=== PATIENT | female | born 1970 | race Caucasian/White ===

== ENCOUNTER → 2017-12-08 06:52 | Outpatient (CLI) | payer OTHER, SELFPAY ==
--- NOTE | 2017-12-08 06:55 | US_ITS ---
US transvaginal COMPARISON: Transvaginal ultrasound pelvis 06/02/2017 HISTORY: Dysfunctional uterine bleeding right-sided pelvic pain TECHNIQUE: Transvaginal imaging FINDINGS: The uterus is normal size. The endometrial echo appears normal. Again noted is slightly hyperechoic lesion in the fundus of uterus abutting and/or adjacent to the endometrial echo measuring 1.5 x 1.6 x 1.3 cm and consistent with a fibroid basely stable and unchanged in size and appearance from previous exam. The right ovary appears normal. The left ovary is normal size and contains a couple small follicular cysts. There is no cul-de-sac fluid. IMPRESSION: Probable uterine fibroid within the fundus adjacent to the endometrium basically stable from previous exam, small follicular cysts left ovary
== END ==
PROVIDERS: PCP Physician Assistant; Visit Provider Nurse Practitioner Obstetrics & Gynecology
DX: N93.9 Abnormal uterine and vaginal bleeding, unspecified (principal); R10.2 Pelvic and perineal pain
CPT/HCPCS: 76830

== ENCOUNTER → 2017-12-14 08:04 | Outpatient (CLI) | payer OTHER, SELFPAY ==
[2017-12-14 10:13] LABS: Anion Gap 10.4 mEq/L (5-15); Blood Urea Nitrogen 13 mg/dL (7-18); Carbon Dioxide 33 mmol/L (21.0-32.0); Chloride 103 mmol/L (98-107); Creatinine,Serum 0.62 mg/dL (0.55-1.02); Estimated Glomerular Filt Rate 102 ml/min (>60); GFR (African American) 124 ML/MIN (>60); Glucose 98 mg/dL (74-106); Potassium 4.4 mmoL/L (3.5-5.1); Sodium 142 mmol/L (136-145)
[2017-12-15 12:58] LABS: FSH 10.5 mIU/mL (.); LH 7.8 mIU/mL (.); Vitamin B12 840 pg/mL (232-1245); Vitamin D 25 Hydroxy 12.2 ng/mL (30.0-100.0)
== END ==
PROVIDERS: Physician Assistant; Visit Provider Nurse Practitioner Obstetrics & Gynecology
DX: R53.83 Other fatigue (principal); I11.9 Hypertensive heart disease without heart failure; E78.5 Hyperlipidemia, unspecified; E66.01 Morbid (severe) obesity due to excess calories
CPT/HCPCS: 36415; 80048; 82607; 82652; 83001; 83002; 83735

== ENCOUNTER → 2017-12-25 09:05 | Outpatient (REF) | payer OTHER, SELFPAY ==
[2017-12-25 13:47] LABS: Basophils % 0.4 % (0.1-2.0); Eosinophils # 0.1 K/mm3 (0.0-0.4); Eosinophils % 2.3 % (0.1-12.0); Hematocrit 39.4 % (37.0-47.0); Lymphocytes # 1.4 K/mm3 (0.7-4.5); Lymphocytes % 28.1 K/mm3 (10-50); Mean Corpuscular HGB Conc 33.1 g/dL (31.8-35.4); Mean Corpuscular Hemoglobin 30.6 pg (27.0-31.2); Mean Corpuscular Volume 92.5 fl (81-99); Mean Platelet Volume 8.2 fl (7.4-10.4); Monocytes # 0.3 K/mm3 (0.1-1.0); Monocytes % 6.6 % (1.7-9.3); Neutrophils # 3.2 K/mm3 (1.8-7.8); Neutrophils % 62.7 % (37.0-80.0); Platelet Count 218 K/mm3 (142-424); Red Blood Count 4.26 M/mm3 (4.20-5.40); Red Cell Distribution Width 13.5 % (11.5-17.5); White Blood Count 5.1 K/mm3 (4.8-10.8)
[2017-12-25 14:22] LABS: Alanine Aminotransferase 23 U/L (12-78); Albumin Level 3.8 gm/dL (3.4-5.0); Albumin/Globulin Ratio 1.1 (1.1-1.8); Alkaline Phosphatase 75 U/L (46-116); Anion Gap 11.7 mEq/L (5-15); Aspartate Amino Transferase 23 U/L (15-37); Bilirubin,Total 0.4 mg/dL (0.2-1.0); Blood Urea Nitrogen 21 mg/dL (7-18); Carbon Dioxide 29 mmol/L (21.0-32.0); Chloride 105 mmol/L (98-107); Chol/HDL Ratio 2.9 (1-3.5); Cholesterol 169 mg/dL (140-200); Creatinine,Serum 0.68 mg/dL (0.55-1.02); Estimated Glomerular Filt Rate 92 ml/min (>60); GFR (African American) 111 ML/MIN (>60); Globulin 3.6 gm/dl (1.3-3.2); Glucose 103 mg/dL (74-106); HDL Cholesterol 58 mg/dL (29-89); LDL Cholesterol 94 mg/dL (0-130); Potassium 3.7 mmoL/L (3.5-5.1); Sodium 142 mmol/L (136-145); T4 (Thyroxine) 6.6 ug/dl (4.7-13.3); Thyroid Stimulating Hormone 21.05 uIU/ml (0.358-3.740); Total Protein,Serum 7.4 gm/dL (6.4-8.2); Triglycerides 85 mg/dL (30-200); VLDL Cholesterol 17 mg/dL (0-40)
[2017-12-26 12:00] LABS: Vitamin D 25 Hydroxy 11.2 ng/mL (30.0-100.0)
== END ==
LOC: LAB 09:05
PROVIDERS: Visit Provider Physician Assistant
DX: I11.9 Hypertensive heart disease without heart failure (principal); E78.5 Hyperlipidemia, unspecified; R53.83 Other fatigue; E66.01 Morbid (severe) obesity due to excess calories; I25.10 Atherosclerotic heart disease of native coronary artery without angina pectoris; N93.9 Abnormal uterine and vaginal bleeding, unspecified
CPT/HCPCS: 80053; 80061; 82652; 84436; 84443; 85025

== ENCOUNTER → 2017-12-25 10:38 | Outpatient (CLI) | payer OTHER, SELFPAY ==
[2017-12-26 12:00] LABS: Estradiol 8.8 pg/mL (.)
[2017-12-28 06:19] LABS: Testosterone,Free 0.4 pg/mL (0.0-4.2)
== END ==
PROVIDERS: Visit Provider Nurse Practitioner Obstetrics & Gynecology
DX: N93.9 Abnormal uterine and vaginal bleeding, unspecified (principal); R53.83 Other fatigue; E66.01 Morbid (severe) obesity due to excess calories; I25.10 Atherosclerotic heart disease of native coronary artery without angina pectoris
CPT/HCPCS: 36415; 82670; 84402

== ENCOUNTER → 2018-03-22 07:31 | Outpatient (CLI) | payer OTHER, SELFPAY ==
--- NOTE | 2018-03-22 07:41 | XR_ITS ---
XR hand RT 2V HISTORY: ITS.REASON: knot on thumb ORDERING PHYSICIAN: Nava Hernandez PATIENT AGE: 47 years COMPARISON: None FINDINGS: No fracture or dislocation. No lytic or blastic change. There is normal mineralization.. The joint spaces are well-preserved. No significant degenerative/arthritic changes. No erosive changes evident.. No abnormal soft tissue calcification. IMPRESSION: Negative, no acute finding
--- NOTE | 2018-03-22 07:41 | XR_ITS ---
XR foot LT 2V HISTORY: Foot pain with a knot on the foot laterally ITS.REASON: knot on foot ORDERING PHYSICIAN: Nava Hernandez PATIENT AGE: 47 years COMPARISON: None FINDINGS: No fracture or dislocation. No lytic or blastic change. There is normal mineralization.. There are minimal osteoarthritic changes of the first metatarsophalangeal joint. Lobular soft tissue density is noted lateral to the fifth metatarsophalangeal junction. No abnormal calcification or gas density in this area there is a small calcaneal spur at 6 mm. IMPRESSION: 1. No acute finding. 2. Mild soft tissue swelling along the lateral aspect of the fifth metatarsophalangeal junction
[2018-03-22 09:17] LABS: Erythrocyte Sedimentation Rate 45 mm/hr (0-20)
[2018-03-22 11:17] LABS: C-Reactive Protein 0.4 mg/L (0.0-0.9); Uric Acid 6.1 mg/dL (2.6-7.2)
== END ==
PROVIDERS: PCP Nurse Practitioner Family; Visit Provider Nurse Practitioner Family
DX: M85.672 Other cyst of bone, left ankle and foot (principal); M85.641 Other cyst of bone, right hand
CPT/HCPCS: 36415; 73120; 73620; 84550; 85651; 86140

== ENCOUNTER → 2018-08-23 08:12 | Outpatient (CLI) | payer OTHER, SELFPAY ==
--- NOTE | 2018-08-23 08:16 | MR_ITS ---
MR foot LT wo/w con CLINICAL INDICATION: Palpable abnormality along the dorsal aspect of the left fifth metatarsal region. The pain ITS.REASON: ganglion cyst ORDERING PHYSICIAN: Alexa Domingo DPM PATIENT AGE: 47 years Comparison: 03/22/2018 TECHNIQUE: Multiplanar multiecho sequences performed without and with contrast FINDINGS: There is an 11 x 6 mm lobular area of isointense T1 and increased T2 signal within the subcutaneous tissues anteriorly at the base of the fourth and fifth metatarsals without significant enhancement consistent with a ganglion cyst. No other significant anomalies are evident. No fracture or dislocation. No bone lesions. No other obvious soft tissue masses. IMPRESSION: 11 x 6 mm cystic lesion along the dorsum of the foot in the subcutaneous tissues between the base of the fourth and fifth metatarsals consistent with a ganglion cyst
--- NOTE | 2018-08-23 09:31 | HMH.ITSHM ---
Current Home Medications as stated by this patient Lesia Doran or employee's representative. [ASPIRIN VITAMIN D VITAMIN D2 LEVOTHYROXINE FUROSEMIDE FLUOXETINE
== END ==
PROVIDERS: PCP Physician Assistant; Visit Provider Podiatrist
DX: M67.472 Ganglion, left ankle and foot (principal); M79.672 Pain in left foot
CPT/HCPCS: 73720; A9576

== ENCOUNTER → 2018-09-04 07:45 | Outpatient (CLI) | payer OTHER, SELFPAY ==
--- NOTE | 2018-09-04 08:30 | US_ITS ---
US gallbladder HISTORY: Bloating after eating ITS.REASON: Abd pain ORDERING PHYSICIAN: Roberto Mesa PATIENT AGE: 47 years Comparison: FINDINGS: PANCREAS: Unremarkable. No obvious mass or abnormal fluid collection. No ductal dilatation LIVER: No focal liver lesions demonstrated. Homogeneous echogenicity. No intrahepatic biliary ductal dilatation evident RIGHT KIDNEY: Unremarkable. Normal size and echogenicity. No hydronephrosis GALLBLADDER: No gallstones, gallbladder wall thickening, pericholecystic fluid, or biliary dilatation. Gallbladder mildly distended at 7 x 4 cm with a minimal amount sludge IMPRESSION: Mild gallbladder distention with mild gallbladder sludge No stones, wall thickening, ductal dilatation or pericholecystic fluid
== END ==
PROVIDERS: PCP Emergency Medicine; Visit Provider Nurse Practitioner Family
DX: R10.9 Unspecified abdominal pain (principal); R11.2 Nausea with vomiting, unspecified; R51 Headache
CPT/HCPCS: 76705

== ENCOUNTER → 2018-09-18 08:16 | Outpatient (CLI) | payer OTHER, SELFPAY ==
--- NOTE | 2018-09-18 08:18 | NM_ITS ---
NM hepatobiliary w pharm HISTORY: Bloating after eating, abnormal gallbladder ultrasound ITS.REASON: gallbladder sludge ORDERING PHYSICIAN: Roberto Mesa PATIENT AGE: 47 years COMPARISON: 09/04/2018 DOSE: 8.77 MCI TC Choletec 2.3 MCG cck INJ into RT wrist FINDINGS: Homogeneous activity is present within the hepatic parenchyma. Activity is present in the gallbladder by 10 minutes. Activity is present in the small bowel by 50 minutes. The gallbladder ejection fraction is calculated to be 90 % The patient did report mild pain during CCK infusion. IMPRESSION: Unremarkable hepatobiliary scan and gallbladder ejection fraction. No evidence of common or cystic duct obstruction with normal gallbladder ejection fraction
--- NOTE | 2018-09-18 12:47 | HMH.ITSHM ---
Current Home Medications as stated by this patient Lesia Doran or medical field representative. []RANITIDINE PROGESTERONE POLYETHYLENE ONDANSETRON LEVOTHYROXINE HYDROXYZINE FUROSEMIDE DONEPEZIL BUPRENORPHINE ASA ERGOCALCIFEROL VITAMIN D3
== END ==
PROVIDERS: PCP Physician Assistant; Visit Provider Nurse Practitioner Family
DX: K82.8 Other specified diseases of gallbladder (principal); R10.9 Unspecified abdominal pain; R11.2 Nausea with vomiting, unspecified
CPT/HCPCS: 78227; A9537; J2805

== ENCOUNTER → 2018-11-01 07:23 | Outpatient (CLI) | payer OTHER, SELFPAY ==
--- NOTE | 2018-11-01 07:26 | CA_ITS ---
PROCEDURE: 2-D M-mode and color Doppler study INDICATIONS FOR THE TEST: Chest pain+ COPD Heart Murmur Tobacco Smoking Palpitations Fatigue+ Syncope Edema+ Hypertension+Diabetes Mellitus Rheumatic Fever SOB+TABARES+Obesity+Hyperlipidemia+ Family History HD Additional History CAD PATIENT INFORMATION HEIGHT: 65 WEIGHT:256 GENDER: Female B/P:129/72 2-D/M-MODE INTERPRETATION: 2-D MEASUREMENTS OBSERVED VALUES IN CMS Right Ventricular Dimension (RVDd) Interventricular Septum (Thickness)(IVsd) 1.4 Left Ventricular Internal Dimensions(LVIDd) 5.0 Left Ventricular Posterior Wall (Thickness)(LVPWd) 1.2 Aortic Root 3.7 Aortic Cusp Separation Left Atrial Dimensions (LAD) 4.1 2D 1. Technically difficult study because of the patient's factor and poor acoustic windows 2. Left atrium is mildly enlarged, left ventricle is normal size, mild concentric left ventricular hypertrophy, visually estimated ejection fraction of 55% with no regional wall motion abnormality, endocardial surfaces are poorly visualized. 3. The right atrium and right ventricle are normal size and contractility. 4. The aortic valve is thickened and calcified leaflet continue to display good mobility. 5. The mitral and tricuspid valve leaflets are grossly normal. 6. The pulmonic valve is poorly visualized. 7. No significant pericardial effusion noted. DOPPLER INTERROGATION: Doppler interrogation of the aortic, mitral and tricuspid valvular presence of mild mitral and tricuspid regurgitation, tricuspid regurgitation jet velocity is inadequate for calculation of the right ventricular systolic pressure, grade 1 diastolic dysfunction seen with tissue Doppler evidence of raised left atrial pressure. CONCLUSION: 1. Technically difficult study because of the patient's factor and poor acoustic windows 2. Left atrium is mildly enlarged, left ventricle is normal size, concentric left ventricular hypertrophy, visually estimated ejection fraction 55% with no regional wall motion abnormality, grade 1 diastolic dysfunction seen with tissue Doppler evidence of raised left atrial pressure. 3. Mild mitral and tricuspid regurgitation. 4. No significant pericardial effusion noted.
[2018-11-01 10:08] LABS: Alanine Aminotransferase 19 U/L (12-78); Albumin Level 3.4 gm/dL (3.4-5.0); Alkaline Phosphatase 94 U/L (46-116); Anion Gap 13.6 mEq/L (5-15); Aspartate Amino Transferase 18 U/L (15-37); Bilirubin,Direct 0.1 mg/dL (0.0-0.2); Bilirubin,Indirect 0.1 mg/dL (0.0-0.9); Bilirubin,Total 0.2 mg/dL (0.2-1.0); Blood Urea Nitrogen 13 mg/dL (7-18); Calcium 8.7 mg/dL (8.5-10.1); Carbon Dioxide 29 mmol/L (21.0-32.0); Chloride 101 mmol/L (98-107); Chol/HDL Ratio 3.2 (1-3.5); Cholesterol 177 mg/dL (140-200); Creatinine,Serum 0.56 mg/dL (0.55-1.02); Estimated Glomerular Filt Rate 115 ml/min (>60); Free T4 (Free Thyroxine) 0.97 ng/dl (0.76-1.46); GFR (African American) 139 ML/MIN (>60); Glucose 97 mg/dL (74-106); HDL Cholesterol 55 mg/dL (29-89); LDL Cholesterol 112 mg/dL (0-130); Potassium 3.6 mmoL/L (3.5-5.1); Sodium 140 mmol/L (136-145); Thyroid Stimulating Hormone 13.68 uIU/ml (0.358-3.740); Total Protein,Serum 7.4 gm/dL (6.4-8.2); Triglycerides 51 mg/dL (30-200); VLDL Cholesterol 10 mg/dL (0-40)
[2018-11-01 12:19] LABS: Basophils % 0.4 % (0.1-2.0); Eosinophils # 0.1 K/mm3 (0.0-0.4); Hematocrit 38.4 % (37.0-47.0); Hemoglobin 12.7 g/dL (12.2-16.2); Lymphocytes # 1.6 K/mm3 (0.7-4.5); Lymphocytes % 34.6 % (10-50); Mean Corpuscular Volume 90.9 fl (81-99); Mean Platelet Volume 7.6 fl (7.4-10.4); Monocytes # 0.3 K/mm3 (0.1-1.0); Monocytes % 5.7 % (1.7-9.3); Neutrophils # 2.5 K/mm3 (1.8-7.8); Neutrophils % 56.3 % (37.0-80.0); Platelet Count 230 K/mm3 (142-424); Red Blood Count 4.22 M/mm3 (4.20-5.40); Red Cell Distribution Width 13.6 % (11.5-17.5); White Blood Count 4.5 K/mm3 (4.8-10.8)
== END ==
PROVIDERS: Nurse Practitioner Family; PCP Physician Assistant; Visit Provider Internal Medicine
DX: I20.9 Angina pectoris, unspecified (principal); R06.02 Shortness of breath; E78.49 Other hyperlipidemia; I25.10 Atherosclerotic heart disease of native coronary artery without angina pectoris; I51.89 Other ill-defined heart diseases; R53.83 Other fatigue; R60.9 Edema, unspecified; E66.01 Morbid (severe) obesity due to excess calories
CPT/HCPCS: 36415; 80048; 80061; 80076; 84439; 84443; 85025; 93306

== ENCOUNTER → 2019-01-08 14:55 | Outpatient (CLI) | payer OTHER, SELFPAY ==
[2019-01-08 15:05] LABS: Basophils % 0.4 % (0.1-2.0); Eosinophils # 0.1 K/mm3 (0.0-0.4); Eosinophils % 2.9 % (0.1-12.0); Hematocrit 40.4 % (37.0-47.0); Hemoglobin 13.2 g/dL (12.2-16.2); Lymphocytes # 1.1 K/mm3 (0.7-4.5); Lymphocytes % 23.5 % (10-50); Mean Corpuscular HGB Conc 32.8 g/dL (31.8-35.4); Mean Corpuscular Volume 91.6 fl (81-99); Mean Platelet Volume 7.6 fl (7.4-10.4); Monocytes # 0.3 K/mm3 (0.1-1.0); Monocytes % 5.5 % (1.7-9.3); Neutrophils # 3.2 K/mm3 (1.8-7.8); Neutrophils % 67.9 % (37.0-80.0); Platelet Count 274 K/mm3 (142-424); Red Blood Count 4.41 M/mm3 (4.20-5.40); Red Cell Distribution Width 12.9 % (11.5-17.5); White Blood Count 4.8 K/mm3 (4.8-10.8)
[2019-01-08 15:26] LABS: Alanine Aminotransferase 27 U/L (12-78); Albumin/Globulin Ratio 0.9 (1.1-1.8); Alkaline Phosphatase 156 U/L (46-116); Anion Gap 9.9 mEq/L (5-15); Aspartate Amino Transferase 24 U/L (15-37); Bilirubin,Total 0.5 mg/dL (0.2-1.0); Blood Urea Nitrogen 14 mg/dL (7-18); Calcium 9.1 mg/dL (8.5-10.1); Carbon Dioxide 33 mmol/L (21.0-32.0); Chloride 103 mmol/L (98-107); Chol/HDL Ratio 2.8 (1-3.5); Cholesterol 165 mg/dL (140-200); Creatinine,Serum 0.83 mg/dL (0.55-1.02); Estimated Glomerular Filt Rate 73 ml/min (>60); GFR (African American) 88 ML/MIN (>60); Globulin 4.3 gm/dl (1.3-3.2); Glucose 95 mg/dL (74-106); HDL Cholesterol 59 mg/dL (29-89); LDL Cholesterol 96 mg/dL (0-130); Potassium 3.9 mmoL/L (3.5-5.1); Sodium 142 mmol/L (136-145); T4 (Thyroxine) 11.2 ug/dl (4.7-13.3); Thyroid Stimulating Hormone 3.69 uIU/ml (0.358-3.740); Total Protein,Serum 8.3 gm/dL (6.4-8.2); Triglycerides 49 mg/dL (30-200); VLDL Cholesterol 10 mg/dL (0-40)
[2019-01-10 12:34] LABS: Vitamin D 25 Hydroxy 44.6 ng/mL (30.0-100.0)
== END ==
PROVIDERS: Visit Provider Physician Assistant
DX: E03.9 Hypothyroidism, unspecified (principal); E78.5 Hyperlipidemia, unspecified; E55.9 Vitamin D deficiency, unspecified
CPT/HCPCS: 80053; 80061; 82652; 84436; 84443; 85025

== ENCOUNTER → 2019-03-20 10:38 | Outpatient (CLI) | payer OTHER, SELFPAY ==
--- NOTE | 2019-03-20 10:39 | MM_ITS ---
MM Dig screening mamm BI w/CAD CAD Screening COMPARISON: Digital mammograms with CAD 10/06/2015 and 06/02/2017 INDICATION: There is a history of breast cancer patient's mother diagnosed in her 30s TECHNIQUE: Standard CC and MLO images were obtained. R2 CAD reviewed. FINDINGS: The breasts are composed primarily of fat with minimal scattered fibroglandular densities in each breast. Again noted is asymmetric density upper outer quadrant right breast which is stable and unchanged from previous exams back to 11/23/2011. There are scattered benign-appearing micro and macro calcifications in each breast. IMPRESSION: Fibrofatty parenchyma with no suspicious lesion seen BI-RADS Category: 2 Benign Finding(s) RECOMMENDED FOLLOW-UP: 1YR - 1 YEAR FOLLOW-UP (A letter has been sent to the patient regarding results of the study.)
--- NOTE | 2019-03-20 10:39 | NM_ITS ---
History:Chest pain, SOB, HTN, CAD, Hx of [place], Family history Procedure: Patient received a 0.4 mg of intravenous Lexiscan, resting heart rate 48 bpm, resting blood pressure 128/74, with Lexiscan maximum heart rate achieve was 58 bpm which is less than 85 % of the maximum predicted heart rate and blood pressure was 136/64th Lexiscan patient denied any complaint of chest pain. Electrocardiogram: Resting electrocardiogram showed sinus bradycardia, with Lexiscan there is less than 1.5mm ST segment depression noted from the baseline EKG. The EKG portion of the Lexiscan Myoview is nondiagnostic. Cardias Stress and Resting SPECT images: Cardias Stress and Resting SPECT images were obtained using technetium 99m Myoview 29.2i stress and 10.23 at rest. Gated SPECT further analysis of segmental wall motion and calculation of ejection fraction also done. Cardiac stress and resting SPECT show reversible ischemia involving the inferior apical wall,, the computer derived ejection fraction is 51 with anterior apical moderate hypokinesis. Right ventricle is normal size and contractility. Conclusion: 1. The EKG portion of the Lexiscan Myoview is nondiagnostic. 2. Scintigraphic evidence of reversible ischemia involving the anterior apical wall is seen, computer derived ejection fraction is 51% with segmental wall motion abnormality described above. 3. Abnormal Lexiscan Myoview study.
--- NOTE | 2019-03-20 11:35 | HMH.ITSHM ---
Current Home Medications as stated by this patient Lesia Doran or security systems sales representative. []SPIRONOLACTONE RANITIDINE PROGESTERONE ONDANSETRON NAPROXEN LEVOTHYROXINE ISOSORBIDE FUROSEMIDE HYDROXYZINE FLUTICASONE FLUOXETINE VITAMIN D2 DONEPEZIL VITAMIN D3 BUPRENORPHINE ATORVASTATIN ASA
== END ==
PROVIDERS: PCP Emergency Medicine; Visit Provider Internal Medicine
DX: Z12.31 Encounter for screening mammogram for malignant neoplasm of breast (principal); I20.9 Angina pectoris, unspecified; Z01.818 Encounter for other preprocedural examination; E66.01 Morbid (severe) obesity due to excess calories; E78.49 Other hyperlipidemia; I11.9 Hypertensive heart disease without heart failure; I25.10 Atherosclerotic heart disease of native coronary artery without angina pectoris; I51.89 Other ill-defined heart diseases; R06.02 Shortness of breath; Z95.5 Presence of coronary angioplasty implant and graft
CPT/HCPCS: 77067; 78452; 93017; A9502; J2785

== ENCOUNTER → 2019-09-19 13:45 | Outpatient (CLI) | payer OTHER, SELFPAY ==
[2019-09-19 14:05] LABS: Basophils % 0.7 % (0.1-2.0); Eosinophils # 0.2 K/mm3 (0.0-0.4); Eosinophils % 3.1 % (0.1-12.0); Hematocrit 39.5 % (37.0-47.0); Hemoglobin 12.8 g/dL (12.2-16.2); Lymphocytes # 1.8 K/mm3 (0.7-4.5); Lymphocytes % 35.8 % (10-50); Mean Corpuscular HGB Conc 32.5 g/dL (31.8-35.4); Mean Corpuscular Hemoglobin 29.6 pg (27.0-31.2); Mean Corpuscular Volume 91.2 fl (81-99); Mean Platelet Volume 8.6 fl (7.4-10.4); Monocytes # 0.3 K/mm3 (0.1-1.0); Monocytes % 5.7 % (1.7-9.3); Neutrophils # 2.7 K/mm3 (1.8-7.8); Neutrophils % 54.6 % (37.0-80.0); Platelet Count 283 K/mm3 (142-424); Red Blood Count 4.34 M/mm3 (4.20-5.40); Red Cell Distribution Width 12.5 % (11.5-17.5)
[2019-09-19 17:41] LABS: Alanine Aminotransferase 24 U/L (12-78); Albumin Level 3.9 gm/dL (3.4-5.0); Albumin/Globulin Ratio 1.2 (1.1-1.8); Alkaline Phosphatase 93 U/L (46-116); Anion Gap 13.9 mEq/L (5-15); Aspartate Amino Transferase 21 U/L (15-37); Bilirubin,Total 0.5 mg/dL (0.2-1.0); Blood Urea Nitrogen 15 mg/dL (7-18); Calcium 9.2 mg/dL (8.5-10.1); Carbon Dioxide 31 mmol/L (21.0-32.0); Chloride 103 mmol/L (98-107); Chol/HDL Ratio 2.7 (1-3.5); Cholesterol 150 mg/dL (140-200); Creatinine,Serum 0.78 mg/dL (0.55-1.02); Estimated Glomerular Filt Rate 78 ml/min (>60); GFR (African American) 95 ML/MIN (>60); Globulin 3.3 gm/dl (1.3-3.2); Glucose 93 mg/dL (74-106); HDL Cholesterol 55 mg/dL (29-89); LDL Cholesterol 83 mg/dL (0-130); Potassium 3.9 mmoL/L (3.5-5.1); Sodium 144 mmol/L (136-145); Thyroid Stimulating Hormone 1.96 uIU/ml (0.358-3.740); Total Protein,Serum 7.2 gm/dL (6.4-8.2); Triglycerides 61 mg/dL (30-200); VLDL Cholesterol 12 mg/dL (0-40)
[2019-09-20 11:28] LABS: Vitamin D 25 Hydroxy 54.3 ng/mL (30.0-100.0)
== END ==
PROVIDERS: Visit Provider Physician Assistant
DX: E03.9 Hypothyroidism, unspecified (principal); E55.9 Vitamin D deficiency, unspecified; E78.5 Hyperlipidemia, unspecified
CPT/HCPCS: 80053; 80061; 82652; 84436; 84443; 85025

== ENCOUNTER → 2019-11-13 07:16 | Outpatient (CLI) | payer OTHER, SELFPAY ==
[2019-11-13 09:42] LABS: Chloride 100 mmol/L (98-107); Sodium 140 mmol/L (136-145)
[2019-11-13 09:43] LABS: Potassium 4.3 mmoL/L (3.5-5.1)
[2019-11-13 09:45] LABS: Blood Urea Nitrogen 28 mg/dl (7-17); Estimated Glomerular Filt Rate 66 ml/min (>60); GFR (African American) 80 ML/MIN (>60)
[2019-11-13 09:46] LABS: Anion Gap 13.3 mEq/L (5-15); Calcium 9.5 mg/dl (8.4-10.2); Carbon Dioxide 31 mmol/L (22.0-30.0); Glucose 109 mg/dl (74-100)
== END ==
PROVIDERS: Visit Provider Nurse Practitioner Family
DX: R07.89 Other chest pain (principal); I25.118 Atherosclerotic heart disease of native coronary artery with other forms of angina pectoris; R60.0 Localized edema
CPT/HCPCS: 36415; 80048

== ENCOUNTER → 2020-02-05 08:28 | Outpatient (CLI) | payer OTHER, SELFPAY ==
[2020-02-05 10:16] LABS: Chloride 101 mmol/L (98-107); Sodium 136 mmol/L (136-145)
[2020-02-05 10:19] LABS: Blood Urea Nitrogen 14 mg/dl (7-17); Estimated Glomerular Filt Rate 76 ml/min (>60); GFR (African American) 92 ML/MIN (>60)
[2020-02-05 10:20] LABS: Calcium 9.4 mg/dl (8.4-10.2); Carbon Dioxide 28 mmol/L (22.0-30.0); Glucose 114 mg/dl (74-100)
== END ==
PROVIDERS: Visit Provider Nurse Practitioner Family
DX: E78.5 Hyperlipidemia, unspecified (principal); I11.9 Hypertensive heart disease without heart failure; I25.10 Atherosclerotic heart disease of native coronary artery without angina pectoris; R06.02 Shortness of breath; R60.9 Edema, unspecified
CPT/HCPCS: 36415; 80048

== ENCOUNTER 2020-03-18 19:14 | Emergency (ER) | payer OTHER, SELFPAY ==
[2020-03-18 19:25] VITALS: BP 139/63; PULSE 62; RESP 14; TEMP 37; O2SAT 95; BMI 43.2
--- NOTE | 2020-03-18 19:30 | CT_ITS ---
PROCEDURE: CT ABDOMEN PELVIS WO CON CLINICAL INDICATION: Kidney stone rule out Left flank pain. COMPARISON: CT ABDOMEN PELVIS WO CON from 05/06/2019 TECHNIQUE: Axial images obtained with sagittal and coronal reformats. All CT scans at the facility use one or more dose reduction, viz: automated exposure control, ma/kV adjustment per patient size (including targeted exams where dose is matched to indication, i.e. head), or iterative reconstruction technique. FINDINGS: LOWER THORAX: No acute finding. No substantial pleural effusion or pneumothorax. No cardiomegaly. No significant coronary calcifications. No cardial effusion. ABDOMEN & PELVIS: The liver has normal size with a small surface. Normal unenhanced liver. The gallbladder is unremarkable. No intraluminal calcified stones. No ductal dilatation. Pancreas: Normal unenhanced pancreas. Spleen is not enlarged. A 14 millimeter calcified splenic artery aneurysm unchanged since the prior CT exam. Adrenals: The adrenal glands are normal. Kidneys, ureters and bladder: Both kidneys have normal size and morphology. Neither kidney shows calculi or evidence of hydronephrosis. Ureters have a normal course and caliber. The urinary bladder is empty. No ureteral or bladder calculus is identified. Gastrointestinal: The stomach and small bowel are unremarkable. There is no evidence of bowel obstruction. The large bowel is within normal limits. Normal appearing appendix. Reproductive organs: Unremarkable as visualized. Lymphatic system: No significant adenopathy demonstrated within the abdomen/pelvis. Vasculature: Normal caliber abdominal aorta. Peritoneum: No free fluid, free air or evidence of inflammation. Abdominal wall and musculoskeletal: Soft tissues: Unremarkable. Old fractures of the right pelvis (right superior and inferior pubic rami and right sacrum). No acute fracture. Degenerative disc/endplate spondylitic changes are seen at T12-L1 and L5-S1 levels. IMPRESSION: 1.No acute intra-abdominal/pelvic findings. 2. Old traumatic findings in the right hemipelvis with healed fractures of the right superior/inferior pubic rami and right sacrum. 3. Right hip arthroplasty. Stable rim calcified splenic artery aneurysm. Dictated by: Amanuel Estes 03/19/2020 14:25 Electronically signed by Amanuel Estes in [place] 03/19/2020 14:25
[2020-03-18 19:44] LABS: Microscopic, Urine URINE MICROSCOPIC (MICROSCOPIC)
[2020-03-18 19:47] LABS: Appearance,Urine CLEAR (Clear); Blood, Urine Negative (Negative); Color,Urine YELLOW (Yellow); Glucose,Urine (UA) Negative (Negative); Ketones,Urine TRACE (Negative); Leukocyte Esterase,Urine TRACE (Negative); Nitrate,Urine Negative (Negative); PH,Urine 5.5 (5.0-8.5); Protein,Urine Negative (Negative); Specific Gravity, Urine >= 1.030 (1.005-1.030)
[2020-03-18 19:49] VITALS: BP 130/83; PULSE 58; RESP 18; O2SAT 97
[2020-03-18 19:55] LABS: Basophils % 0.5 % (0.1-2.0); Chloride 98 mmol/L (98-107); Eosinophils # 0.2 K/mm3 (0.0-0.4); Eosinophils % 2.3 % (0.1-12.0); Hemoglobin 13.7 g/dL (12.2-16.2); Lymphocytes # 2.6 K/mm3 (0.7-4.5); Lymphocytes % 36.4 % (10-50); Mean Corpuscular HGB Conc 33.5 g/dL (31.8-35.4); Mean Corpuscular Hemoglobin 30.7 pg (27.0-31.2); Mean Corpuscular Volume 91.7 fl (81-99); Mean Platelet Volume 7.8 fl (7.4-10.4); Monocytes # 0.4 K/mm3 (0.1-1.0); Monocytes % 5.8 % (1.7-9.3); Neutrophils # 3.9 K/mm3 (1.8-7.8); Neutrophils % 55.1 % (37.0-80.0); Platelet Count 293 K/mm3 (142-424); Red Blood Count 4.47 M/mm3 (4.20-5.40); Red Cell Distribution Width 12.4 % (11.5-17.5); Sodium 140 mmol/L (136-145)
[2020-03-18 19:56] LABS: Potassium 3.5 mmoL/L (3.5-5.1)
[2020-03-18 19:58] LABS: Alanine Aminotransferase 15 U/L (12-78); Alkaline Phosphatase 86 U/L (38-126); Amylase 53 U/L (30-110); Anion Gap 15.5 mEq/L (5-15); Aspartate Amino Transferase 24 U/L (14-36); Bilirubin,Total 0.5 mg/dl (0.2-1.3); Blood Urea Nitrogen 17 mg/dl (7-17); Carbon Dioxide 30 mmol/L (22.0-30.0); Creatinine Clearance Estimated 60 mL/min (50-200); Estimated Glomerular Filt Rate 58 ml/min (>60); GFR (African American) 71 ML/MIN (>60); Glucose 118 mg/dl (74-100)
[2020-03-18 19:59] LABS: Albumin Level 4.1 g/dl (3.5-5.0); Albumin/Globulin Ratio 1.1 (1.1-1.8); Globulin 3.7 g/dL (1.3-3.2); Lipase 49 U/L (23-300); Total Protein,Serum 7.8 g/dl (6.3-8.2)
[2020-03-18 20:02] LABS: Bilirubin,Urine 1+ (Negative)
[2020-03-18 20:17] VITALS: BP 109/64; PULSE 60; RESP 18; O2SAT 96
[2020-03-18 20:24] LABS: Bacteria,Urine Trace /lpf
[2020-03-18 20:47] VITALS: BP 115/52; PULSE 56; RESP 18; O2SAT 95
[2020-03-18 21:12] VITALS: BP 118/68; PULSE 61; RESP 18; O2SAT 97
[2020-03-18 21:20] VITALS: BP 118/68; PULSE 82; RESP 16; TEMP 37; O2SAT 97
--- NOTE | 2020-03-18 21:20 | HMH.EDABDPAI ---
ED Disposition Clinical Impression: Abdominal pain, UTI (urinary tract infection) Disposition: Home, Self-Care Condition on Discharge: Good Instructions: DI for Acute Abdomen Prescriptions: Ciprofloxacin HCl [Cipro 500mg Tab] 500 mg PO BID 10 Days #20 tab Transmission Status: Sent to [id number] Referrals: Janice Fitzpatrick PA [Primary Care Provider] - - Critical Care Critical Care Time: No Attestation: On 03/18/20, the high probability of a clinically significant, sudden or life threatening deterioration of the following system(s) required my full and direct attention, intervention and personal management. The time I documented below is in addition to time spent performing reported procedures but includes the following listed in this critical care notation. Medical Decision Making - Medical Records Medical records reviewed: Yes: I reviewed the patient's medical records. - Wolfgang Inquiry Pt receiving controlled substance: No Vital Signs: 03/18/20 19:25 03/18/20 19:49 03/18/20 20:17 Temperature 98.6 F Temperature Source Oral Pulse Rate [Right Brachial] 62 58 L 60 Respiratory Rate 14 18 18 Blood Pressure [Right Arm] 139/63 130/83 109/64 L Blood Pressure Mean [Right Arm] 88 98 79 Blood Pressure Source [Right Arm] Automatic Cuff Blood Pressure Position [Right Arm] Sitting 02 Sat by Pulse Oximetry 95 97 96 Oxygen Delivery Method Room Air Room Air Room Air 03/18/20 20:47 03/18/20 21:12 Temperature Temperature Source Pulse Rate [Right Brachial] 56 L 61 Respiratory Rate 18 18 Blood Pressure [Right Arm] 115/52 L 118/68 Blood Pressure Mean [Right Arm] 73 84 Blood Pressure Source [Right Arm] Blood Pressure Position [Right Arm] 02 Sat by Pulse Oximetry 95 97 Oxygen Delivery Method Room Air Room Air - Lab Data Lab results reviewed: Yes: I reviewed the patient's lab results. Lab Results 03/18/20 19:24: Urine Color Yellow, Urine Appearance Clear, Urine pH 5.5, Ur Specific [place] >= 1.030, Urine Protein Negative, Urine Glucose (UA) Negative, Urine Ketones Trace, Urine Blood Negative, Urine Nitrate Negative, Urine Bilirubin 1+ A, Urine Urobilinogen 1.0, Ur Leukocyte Esterase Trace, Urine WBC 3-5, Ur Squamous Epith Cells 5-10, Urine Bacteria Trace 03/18/20 19:44: WBC 7.0, RBC 4.47, Hgb 13.7, Hct 41.0, MCV 91.7, MCH 30.7, MCHC 33.5, RDW 12.4, Plt Count 293, MPV 7.8, Neut % (Auto) 55.1, Lymph % (Auto) 36.4, Crisp % (Auto) 5.8, Eos % (Auto) 2.3, Baso % (Auto) 0.5, Neut # (Auto) 3.9, Lymph # (Auto) 2.6, Crisp # (Auto) 0.4, Eos # (Auto) 0.2, Baso # (Auto) 0.0 03/18/20 19:44: Sodium 140, Potassium 3.5, Chloride 98, Carbon Dioxide 30, Anion Gap 15.5 H, BUN 17, Creatinine 1.00, Estimated Creat Clear 60, Estimated GFR 58 L, Est GFR ( Amer) 71, Glucose 118 H, Calcium 9.0, Total Bilirubin 0.5, AST 24, ALT 15, Alkaline Phosphatase 86, Total Protein 7.8, Albumin 4.1, Globulin 3.7 H, Albumin/Globulin Ratio 1.1, Amylase 53, Lipase 49 Result diagrams: 03/18/20 19:44 03/18/20 19:44 Orders (Tests/Meds): ORDERS Category Date Time Status CT abdomen pelvis wo con Stat Cat Scan 03/18/20 19:30 Taken - CT Data CT Scan: Abdomen, Pelvis Time Received: 21:[address] Reviewed: Yes: I have reviewed the patient's CT results Preliminary Findings: Normal/NAD Abdominal Pain HPI - General Chief Complaint: Abdominal Pain Stated Complaint: possible kidney infection or kidney stones Time Seen by Provider: 03/18/20 21:00 Mode of Arrival: Ambulatory Source of Information: Patient Limitations: No Limitations Description of Symptoms (Recalled from ER Triage Doc. by RN): Patient reports lower left abdominal pain and left flank plain that started 2x days ago and has gotten worse. Patient reports a hx of kindney stones. - History of Present Illness HPI narrative: 49-year-old female presents the emergency department with left lower quadrant abdominal pain. Patient states the pain started
== END 2020-03-18 21:42 | disposition home or self-care (01) ==
PROVIDERS: Emergency Provider Emergency Medicine; PCP Physician Assistant
DX: N30.00 Acute cystitis without hematuria (principal); E03.9 Hypothyroidism, unspecified; Z87.442 Personal history of urinary calculi; I10 Essential (primary) hypertension; I25.10 Atherosclerotic heart disease of native coronary artery without angina pectoris; F41.8 Other specified anxiety disorders; E78.5 Hyperlipidemia, unspecified; Z79.899 Other long term (current) drug therapy; I25.2 Old myocardial infarction
CPT/HCPCS: 74176; 80053; 81001; 82150; 83690; 85025; 99284

== ENCOUNTER → 2020-03-23 07:53 | Outpatient (CLI) | payer OTHER, SELFPAY ==
--- NOTE | 2020-03-23 07:53 | MM_ITS ---
PROCEDURE: MM DIG SCREENING MAMM BI W/CAD Digital Breast Tomosynthesis Included CLINICAL INDICATION: screening xmg Screening for breast cancer COMPARISON: MG MM MAMMO DIGITAL DIAGNOSTIC W CAD BILAT from 11/23/2011 MG DMSB DIG MAMM-SCREEN ABHINAV from 10/06/2015 MG DMSB DIG MAMM-SCREEN ABHINAV W/CAD from 06/02/2017 MG DIG MAMM-SCREEN ABHINAV from 03/20/2019 TECHNIQUE: Standard CC and MLO images and 3D Tomosynthesis was obtained. R2 CAD reviewed. FINDINGS: There is average fibroglandular tissue. There are scattered benign-appearing calcifications and benign-appearing nodules. No malignant appearing mass or malignant-appearing microcalcification. IMPRESSION: BI-RAD Category: 2 Benign Finding(s) FOLLOW-UP: 1YR 1 Year Follow-up (A letter has been sent to the patient regarding results of the study.) Dictated b Hugh Mathis MD 03/27/2020 09:55 Hugh Mathis MD in [place] 03/27/2020 09:55
== END ==
PROVIDERS: PCP Physician Assistant; Visit Provider Nurse Practitioner Obstetrics & Gynecology
DX: Z12.31 Encounter for screening mammogram for malignant neoplasm of breast (principal)
CPT/HCPCS: 77063; 77067

== ENCOUNTER → 2020-05-05 09:13 | Outpatient (CLI) | payer OTHER, SELFPAY ==
[2020-05-05 10:19] LABS: Chloride 99 mmol/L (98-107); Sodium 142 mmol/L (136-145)
[2020-05-05 10:20] LABS: Potassium 3.8 mmoL/L (3.5-5.1)
[2020-05-05 10:23] LABS: Anion Gap 9.8 mEq/L (5-15); Blood Urea Nitrogen 15 mg/dl (7-17); Calcium 8.6 mg/dl (8.4-10.2); Carbon Dioxide 37 mmol/L (22.0-30.0); Estimated Glomerular Filt Rate 88 ml/min (>60); GFR (African American) 107 ML/MIN (>60); Glucose 181 mg/dl (74-100)
[2020-05-05 10:30] LABS: NT Pro Brain Natriuretic Pep. 647 pg/mL (0-125)
== END ==
PROVIDERS: Visit Provider Physician Assistant
DX: R06.00 Dyspnea, unspecified (principal); R60.9 Edema, unspecified
CPT/HCPCS: 36415; 80048; 83880

== ENCOUNTER → 2020-05-13 10:23 | Outpatient (CLI) | payer OTHER, SELFPAY ==
--- NOTE | 2020-05-13 | CA_ITS ---
APPROVED REPORT Exam: Pharmacologic Technologist: Rossy Elizabeth Ht: 5 ft 5 in Wt: 270 lbs BSA: 2.25 m2 HR: 55 bpm BP: 112/46 mmHg Indications: Shortness of Breath Medical History Medications: Omeprazole,,,,, Levothyroxine,,,,, Aspirin,,,,, Vitamin D3,,,,, Atorvastatin,,,,, Estradiol,,,,, DONEPEZIL,,,,, FluTICASONE,,,,, Fluoxetine,,,,, Vitamin D2,,,,, SpirOnolactone,,,,, TorSEMIDE,,,,, Stress Test Details Test: LEXISCAN HR Resting HR: 60 bpm Max Heart Rate (APMHR): 169 bpm Max HR Achieved: 73 bpm Target HR (85% APMHR): 143 bpm % of APMHR: 43 Recovery HR: 58 bpm BP Resting BP: 112.0/46.0 mmHg Max BP: 116.0/50.0 mmHg Recovery BP: 102.0/61.0 mmHg ECG Clinical Exercise duration: 04:01 min Highest Stage Achieved: Stress ECG Conclusion Resting ECG: Bradycardia, ectopic atrial rhythm, NS T wave abnormalities. Symptoms: Shortness of air, malaise. No chest pain. Arrhythmias/Ectopy: None ST-T Changes: No significant changes. Conclusion: Unremarkable Lexiscan stress. Myoview images reported separately. Test Summary REST 04:03 . . 60 . 112/ 46 . . Stage 1 . . . . . . . Myoview Injected Stage 1 01:00 . . 63 . . . . Stage 2 01:00 . . 62 . 110/ 56 . . Stage 3 01:00 . . 61 . 100/ 61 . . Stage 4 01:00 . . 56 . 116/ 50 . . Stage 4 01:01 . . 56 . 116/ 50 . Stop exercise at 04:01 RECOVERY 01:00 . . 59 . . . . RECOVERY 02:00 . . 70 . 91/ 57 . . RECOVERY 03:00 . . 63 . 112/ 58 . . RECOVERY 04:00 . . 60 . 102/ 61 . . RECOVERY 04:13 . . 67 . 102/ 61 . . Electronically signed by : Marcelo Benavidez, 05/14/2020:31:53
--- NOTE | 2020-05-13 10:30 | CA_ITS ---
APPROVED REPORT EXAM: Comprehensive 2D, Doppler, and color-flow Echocardiogram Nursing Education Consultant: Krystle Stevens CRT Ht: 5 ft 5 in Wt: 271lbs BSA: 2.25 BP: 103/31 mmHg Indications: Chest Pain, Shortness of Breath, Obesity, Fatigue, Peripheral Edema, CAD, Hyperlipidemia, Hypertension/HDD, stent, TDE 2D Dimensions LVOT 1.89 cm (M/F) 1.5-2.5 M-Mode Dimensions RVDd 3.46 cm (0.9-2.6) LVDd 4.29 cm (3.5-5.7) LVDs 2.74 cm (3.5-5.7) IVSd 2.13 cm (0.6-1.1) PWd 0.49 cm (0.6-1.1) EF (Teich) 66.10% FS 36.10% EDV (Teich) 82.60 mL ESV (Teich) 28.00 mL LV Diastology E/A Ratio 1.26 Mitral Valve MV A Velocity 70.00 (40-130 cm/s) Left Ventricle Technically difficult study because of the patient factors and poor acoustic windows. Left atrium is mildly enlarged, left ventricle is normal size, mild concentric left ventricular hypertrophy, visually estimated ejection fraction 50% with no regional wall motion abnormality, endocardial surfaces are very poorly visualized. If clinically indicated repeat study with Definity contrast is recommended. Diastolic parameters are inconclusive. Right Ventricle Right atrium and right ventricle are mildly enlarged with normal contractility. Aortic Valve Aortic valve is minimally thickened and fibrosed, there is no aortic stenosis or aortic insufficiency. Mitral Valve Mitral valve is grossly normal, there is mild mitral regurgitation. Tricuspid Valve Tricuspid valve is grossly normal, there is mild tricuspid regurgitation, tricuspid regurgitation jet velocity is inadequate for calculation of the right ventricular systolic pressure. Pulmonic Valve Pulmonic valve is poorly visualized. Great Vessels Aortic root is normal size. Pericardium No significant pericardial effusion noted. Conclusion 1. Technically very difficult study because of the patient factors and poor acoustic windows, a repeat study with Definity contrast is recommended if clinically indicated. 2. Mild biatrial enlargement, normal left ventricular size, mild concentric left ventricular hypertrophy, visually estimated ejection fraction 55% with no regional wall motion abnormality, diastolic parameters are inconclusive. 3. Mildly enlarged right ventricle with normal contractility 4. Mild mitral and tricuspid regurgitation. 5. No significant pericardial effusion noted. Electronically signed by : Marcelo Benavidez, 05/14/2020 10:21:48
--- NOTE | 2020-05-13 11:30 | NM_ITS ---
APPROVED REPORT Exam: Nuclear Stress Test Indication: CAD, H/O M.I., CHF, HTN, HYPERLIPIDEMIA, FM HX., C.P., SOB, PALPATATIONS, SYNCOPE, FATIGUE Patient Location: Outpatient Stress Tech: Rossy Glenn NM Tech:Sofiya Medina, ARRT, RT (R)(N) Ht: 5 ft 5 in Wt: 270 lbs Bra Size: DD HR: 55 bpm BP: 112/46 mmHg BSA: 2.25 m2 BMI: 44.9 History: CAD, H/O M.I., CHF, HTN, HYPERLIPIDEMIA, FM HX., C.P., SOB, PALPATATIONS, SYNCOPE, FATIGUE Procedure: Patient received a 0.4 mg of intravenous Lexiscan, resting heart rate 55 bpm, resting blood pressure 112/46 mmHg, with Lexiscan maximum heart rate achived was 63 bpm which is Less than 85 % of the maximum predicted heart rate and blood pressure was 110/56 mmHg. Electrocardiogram Resting electrocardiogram showed ectopic atrial rhythm, nonspecific ST-T changes, with Lexiscan there is less than 1.[address] segment depression noted from the baseline EKG. The EKG portion of the Lexiscan Myoview is nondiagnostic. Cardiac Stress and Resting SPECT Images: Cardiac Stress and Resting SPECT images were obtained using technetium 99m Myoview 30.5 mCi stress and 10.05 mCi at rest. Gated SPECT for the analysis of segmental wall motion and calculation of the ejection fraction also done. Cardiac stress and resting SPECT images show fixed defect in the anterior wall with normal contractility on gated SPECT is likely secondary to soft tissue attenuation, no reversible ischemia seen. Computer derived ejection fraction is over 65% with no regional wall motion abnormality, right ventricle is normal size and contractility. Conclusion: 1. The EKG portion of the Lexiscan Myoview is nondiagnostic. 2. No scintigraphic evidence of reversible ischemia seen, computer derived ejection fraction is over 65% with no regional wall motion abnormality, right ventricle is normal size and contractility. 3. Likely normal Lexiscan Myoview study. Electronically signed by : Marcelo Benavidez, 05/14/2020 09:34:59
--- NOTE | 2020-05-13 12:45 | HMH.ITSHM ---
Current Home Medications as stated by this patient Lesia Doran or financial foundations representative. []TORSEMIDE SPIRONOLACTONE PROPRANOLOL OMEPRAZOLE NAPROXEN LEVOTHYROXINE MEDROXYPROGESTERONE NASAL SPRAY FLUOXETINE ESTRADIOL VITMAIN D2 VITAMIN D3 DONEPEZIL BUSPIRONE BUPRENORPHINE ATORVASTATIN ASA
== END ==
PROVIDERS: PCP Physician Assistant; Visit Provider Nurse Practitioner Family
DX: R06.02 Shortness of breath (principal); I11.9 Hypertensive heart disease without heart failure; I25.118 Atherosclerotic heart disease of native coronary artery with other forms of angina pectoris; R60.0 Localized edema; E66.01 Morbid (severe) obesity due to excess calories; E78.2 Mixed hyperlipidemia; Z95.5 Presence of coronary angioplasty implant and graft
CPT/HCPCS: 78452; 93017; 93306; A9502; J2785

== ENCOUNTER → 2020-05-19 09:19 | Outpatient (CLI) | payer OTHER, SELFPAY ==
[2020-05-19 11:24] LABS: Chloride 100 mmol/L (98-107)
[2020-05-19 11:25] LABS: Sodium 142 mmol/L (136-145)
[2020-05-19 11:28] LABS: Blood Urea Nitrogen 18 mg/dl (7-17); Calcium 9.3 mg/dl (8.4-10.2); Carbon Dioxide 33 mmol/L (22.0-30.0); Estimated Glomerular Filt Rate 66 ml/min (>60); GFR (African American) 80 ML/MIN (>60); Glucose 118 mg/dl (74-100)
[2020-05-19 11:36] LABS: NT Pro Brain Natriuretic Pep. 264 pg/mL (0-125)
== END ==
PROVIDERS: Visit Provider Nurse Practitioner Family
DX: I11.9 Hypertensive heart disease without heart failure (principal); R06.02 Shortness of breath; E78.2 Mixed hyperlipidemia; I25.118 Atherosclerotic heart disease of native coronary artery with other forms of angina pectoris; R60.0 Localized edema; E66.01 Morbid (severe) obesity due to excess calories; Z95.5 Presence of coronary angioplasty implant and graft
CPT/HCPCS: 36415; 80048; 83880

== ENCOUNTER → 2020-05-21 12:02 | Outpatient (CLI) | payer OTHER, SELFPAY ==
--- NOTE | 2020-05-21 12:04 | US_ITS ---
APPROVED REPORT Exam Type: Lower Extremity Segmental Pressures Inspector Eyeglass Frames: Layla Mckenna RDCS Indications Claudication: Rest Pain: CAD Pressures/Indices Right Indices Left Indices Brachial 107.00 mmHg Brachial 109.00 mmHg Low Thigh 115.00 mmHg 1.06 Low Thigh 137.00 mmHg 1.26 Calf 150.00 mmHg 1.38 Calf 123.00 mmHg 1.13 Ankle(PT) 136.00 mmHg 1.25 Ankle(PT) 138.00 mmHg 1.27 Ankle(DP) 113.00 mmHg 1.04 Ankle(DP) 111.00 mmHg 1.02 Digit 103.00 mmHg 0.94 Digit 102.00 mmHg 0.94 Findings NORMAL PULSES AND WAVEFORMS R FELICITA 1.3 L FELICITA 1.3 R TBI .9 L TBI .9 Conclusion NORMAL PULSES AND WAVEFORMS R FELICITA 1.3 L FELICITA 1.3 R TBI .9 L TBI .9 Electronically signed by : Hugh Mathis MD 05/25/2020 17:24:31
--- NOTE | 2020-05-21 12:07 | XR_ITS ---
PROCEDURE: XR CHEST 2V Referring Doctor: Maegan Galdamez Patient Age:49Y CLINICAL HISTORY: dyspnea dyspnea one-month COMPARISON: CR CXR CHEST(2 VIEWS-NOT PORTABLE) from 01/03/2014 CR CXR CHEST(2 VIEWS-NOT PORTABLE) from 01/31/2016 FINDINGS: The lungs appear well well expanded and clear with nothing definitely acute. The lungs appear similar to the 2014 CXR but the heart is slightly larger now in 2013 but similar to 2016 with-mild cardiomegaly a similar to 2016. Normal point vascularity. The right bette is upper normal in prominence. It slightly very slightly more generous but I believe this is merely due to projection. No pleural effusion but no pneumothorax but Suggestion mild hyperexpansion slight increased AP diameter. Ribs and chest wall intact with minor scoliosis spine noted IMPRESSION: Lungs clear. Nothing definitely acute Mild cardiomegaly . Upper normal right bette I believe overall within normal limits Dictated by: Casa Loza MD 05/21/2020 12:54 Casa Loza MD in [place] 05/21/2020 12:54
== END ==
PROVIDERS: PCP Physician Assistant; Visit Provider Urology
DX: R06.02 Shortness of breath (principal)
CPT/HCPCS: 71046; 93923

== ENCOUNTER 2020-08-05 13:06 | Emergency (ER) | payer OTHER, SELFPAY ==
[2020-08-05 13:10] VITALS: BP 113/65; PULSE 77; RESP 20; TEMP 36.8; O2SAT 97; BMI 43.2
--- NOTE | 2020-08-05 13:26 | HMH.EDUTC ---
[facility] [place] Disposition Clinical Impression: Close exposure to COVID-19 virus Disposition: Home, Self-Care Condition on Discharge: Good Instructions: DI for COVID-19 (Suspected or Confirmed ), COVID-19: Protecting Yourself When You're at High Risk, Preventing the Spread of Coronavirus Discharge Instructions Additional Instructions: *Monitor Temp, Over the counter Motrin or Tylenol as directed/as needed Tylenol every 4 hours and Motrin every 6 hours (as long as your family doctor has told you that you can take it) for fever or pain. and straight to ER if unable to lower temp less than 101.0 after medication given *Warm salt water gargles may help to soothe the throat *Throat Lozenges *Warm fluids like tea with honey may help to soothe the throat *Sleep elevated *Humidifier/Vaporizer *Flonase 2 sprays in each nostril daily but be aware that it may take 2-3 days before you notice improvement Follow up IMMEDIATELY for new or worsening symptoms or no Noticeable improvement over the next 48-72 hours. 911 for difficulty breathing or swallowing You were tested for today for COVID19 your test result should be back in the next 24-48 hours, you may call to the [facility] to see if your test results are back in the next 48 hours [phone] [facility] hours are 9am-9pm You was given a handout with instructions for Self Quarantine and Self isolation for while you wait on test results and what to do if they are positive If you are positive the Health Dept will be contacting you also Referrals: Janice Fitzpatrick PA [Primary Care Provider] - As needed Time of Disposition: 13:28 Medical Decision Making - Wolfgang Inquiry Pt receiving controlled substance: No Wolfgang was queried for this patient: No Vital Signs: 08/05/20 13:10 Temperature 98.3 F Temperature Source Oral Pulse Rate [Right Brachial] 77 Respiratory Rate 20 Blood Pressure [Right Arm] 113/65 Blood Pressure Mean [Right Arm] 81 Blood Pressure Source [Right Arm] Automatic Cuff Blood Pressure Position [Right Arm] Sitting 02 Sat by Pulse Oximetry 97 Oxygen Delivery Method Room Air [facility] [place] HPI - General Stated complaint: Covid test, sore throat, loyd Time Seen by Provider: 08/05/20 13:26 Mode of Arrival: Ambulatory Source of Information: Patient Limitations: No Limitations Description of Symptoms (Recalled from Triage Doc. by RN): PATIENT REQUESTING COVID TEST D/T EXPOSURE; C/O CHILLS, HEADACHE AND SORE THROAT X 2 DAYS HEENT Symptoms (Recalled from RN notes): Yes Resp Symptoms (Recalled from RN notes): No Skin Symptoms (Recalled from RN notes): No MS Symptoms (Recalled from RN notes): No Functional Status (Recalled from RN notes): WNL - History of Present Illness Provider Complaint: Patient states that she was recently around a several family members that has since tested positive for COVID State that she has been having body achces, chills, sore scratchy throat and headache for the last couple of days so she came in to get tested for COVID - Related Data Home Medications Medication Instructions Recorded Confirmed buprenorphine 8 mg-naloxone 2 mg 1 tab SUBLINGUAL BID tab 10/10/17 05/19/20 sublingual tablet naproxen 500 mg tablet 500 mg PO BID PRN #30 tab 02/19/19 05/19/20 fluoxetine 40 mg capsule 80 mg PO DAILY cap 03/12/19 05/19/20 donepezil 10 mg tablet 10 mg PO DAILY #30 tab 04/18/19 05/19/20 propranolol 10 mg tablet 10 mg PO DAILY #60 tab 04/18/19 05/19/20 buspirone 5 mg tablet 5 mg PO BID tab 05/05/20 05/19/20 melatonin 3 mg tablet 3 mg PO HS tab 05/19/20 05/19/20 Previous Rx's Medication Instructions Recorded fluticasone propionate 50 1 spray INTRANASAL DAILY #54.6 ml 09/19/19 mcg/actuation nasal spray,suspension atorvastatin 10 mg tablet 10 mg PO DAILY #90 tab 01/24/20 ergocalciferol (vitamin D2) 1,250 50,000 unit PO DAILY #14 cap 03/06/20 mcg (50,000 unit) capsule estradiol 1 mg tablet 1 mg PO DAILY #30 tab 03/20/20 medroxyprogesterone 2.5 mg tablet 2.
[2020-08-05 13:31] VITALS: BP 113/65; PULSE 77; RESP 20; TEMP 36.8; O2SAT 97
== END 2020-08-05 13:35 | disposition home or self-care (01) ==
PROVIDERS: Emergency Provider Nurse Practitioner; PCP Physician Assistant
DX: Z20.828 Contact with and (suspected) exposure to other viral communicable diseases (principal); J02.9 Acute pharyngitis, unspecified; I25.10 Atherosclerotic heart disease of native coronary artery without angina pectoris; I25.2 Old myocardial infarction; Z87.442 Personal history of urinary calculi; F33.1 Major depressive disorder, recurrent, moderate; Z79.899 Other long term (current) drug therapy; Z88.1 Allergy status to other antibiotic agents
CPT/HCPCS: 99201; U0003

== ENCOUNTER → 2020-08-10 09:24 | Outpatient (CLI) | payer OTHER, SELFPAY ==
--- NOTE | 2020-08-10 09:25 | CA_ITS ---
APPROVED REPORT Tower Climber: CT Laterality: Bilateral Indications: dizziness Risk Factors Hypertension: Hyperlipidemia Doppler Spectral Velocity Analysis ECA (R) 91.00/ cm/s ECA (L) 101.00/ cm/s dICA (R) 87.10/32.00 cm/s dICA (L) 74.10/27.20 cm/s Hattie (R) 80.50/35.80 cm/s Hattie (L) 82.60/28.10 cm/s pICA (R) 75.00/25.40 cm/s pICA (L) 81.10/29.20 cm/s dCCA (R) 63.40/15.40 cm/s dCCA (L) 73.90/25.90 cm/s pCCA (R) 73.90/20.40 cm/s pCCA (L) 86.60/31.40 cm/s Vert (R) 52.80/ cm/s Vert (L) 36.40/ cm/s ICA/CCA 1.37 ICA/CCA 1.12 Findings Duplex evaluation demonstrates stenosis of the right proximal internal carotid artery in the range of 20-49%, lower end of scale. Duplex evaluation demonstrates stenosis of the left proximal internal carotid artery in the range of 20-49%, lower end of scale. Duplex evaluation demonstrates antegrade flow of the bilateral Vertebral Arteries. Conclusion Duplex evaluation demonstrates stenosis of the right proximal internal carotid artery in the range of 20-49%, lower end of scale. Duplex evaluation demonstrates stenosis of the left proximal internal carotid artery in the range of 20-49%, lower end of scale. Duplex evaluation demonstrates antegrade flow of the bilateral Vertebral Arteries. Electronically signed by : Hugh Mathis MD 08/11/2020 16:53:50
--- NOTE | 2020-08-10 10:05 | CT_ITS ---
PROCEDURE: CT CHEST WO/W CON CLINCAL INDICATION: CHEST PAIN, CAD, BILAT BRUIT COMPARISON: CT CT ABDOMEN PELVIS WO CON from 05/06/2019 TECHNIQUE: IV Contrast: 75ml Isovue 370 Axial images obtained with sagittal and coronal reformats. All CT scans at the facility use one or more dose reduction, viz: automated exposure control, ma/kV adjustment per patient size (including targeted exams where dose is matched to indication, i.e. head), or iterative reconstruction technique. FINDINGS: HEART AND MEDIASTINAL STRUCTURES: No mediastinal or hilar mass. Coronary artery stent is present. There is a small hiatal hernia. There is a mild pectus deformity. 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 This vessel traverses posterior to the left atrium between the left atrium and the inferior pulmonary vein and enters the right atrium inferiorly on the left. No aortic aneurysm dissection or central pulmonary embolus evident. LUNGS AND PLEURAL SPACES: There is some mild atelectatic or fibrotic changes in the lung bases. Small fissural nodule is present in the right perihilar region at 6 x 3 mm. No lobar consolidation or collapse is evident. BONY STRUCTURES: There is mild upper thoracic curvature convex left and lower thoracic curvature convex right UPPER ABDOMEN: There is a partially calcified splenic artery aneurysm at 18 mm not significantly changed. ADDITIONAL FINDINGS: No other significant abnormalities. IMPRESSION: 1. No acute finding. 2. Left-sided superior vena cava as described above 3. No change partially calcified splenic artery aneurysm Dictated by: Hugh Mathis MD 08/12/2020 12:04 Hugh Mathis MD in [place] 08/12/2020 12:04
== END ==
PROVIDERS: PCP Physician Assistant; Visit Provider Urology
DX: R06.02 Shortness of breath (principal); R42 Dizziness and giddiness; I20.0 Unstable angina; R94.31 Abnormal electrocardiogram [ECG] [EKG]; E66.01 Morbid (severe) obesity due to excess calories; E78.5 Hyperlipidemia, unspecified; I11.9 Hypertensive heart disease without heart failure; R60.9 Edema, unspecified; Z95.5 Presence of coronary angioplasty implant and graft
CPT/HCPCS: 71270; 93880; Q9967

== ENCOUNTER → 2020-11-18 14:43 | Outpatient (CLI) | payer OTHER, SELFPAY ==
[2020-11-18 14:57] LABS: Alanine Aminotransferase 20 U/L (12-78); Albumin Level 4.3 g/dl (3.5-5.0); Albumin/Globulin Ratio 1.3 (1.1-1.8); Alkaline Phosphatase 93 U/L (38-126); Anion Gap 14.3 mEq/L (5-15); Aspartate Amino Transferase 54 U/L (14-36); Bilirubin,Total 0.4 mg/dl (0.2-1.3); Blood Urea Nitrogen 20 mg/dl (7-17); Calcium 9.2 mg/dl (8.4-10.2); Carbon Dioxide 33 mmol/L (22.0-30.0); Chloride 96 mmol/L (98-107); Chol/HDL Ratio 2.7 (1-3.5); Cholesterol 160 mg/dl (140-200); Estimated Glomerular Filt Rate 75 ml/min (>60); GFR (African American) 91 ML/MIN (>60); Globulin 3.2 g/dL (1.3-3.2); Glucose 100 mg/dl (74-100); HDL Cholesterol 60 mg/dl (40-60); Potassium 3.3 mmoL/L (3.5-5.1); Sodium 140 mmol/L (136-145); Total Protein,Serum 7.5 g/dl (6.3-8.2); Triglycerides 68 mg/dl (30-150); VLDL Cholesterol 14 mg/dL (0-40)
[2020-11-18 15:03] LABS: Basophils % 0.4 % (0.1-2.0); Eosinophils # 0.2 K/mm3 (0.0-0.4); Hematocrit 37.1 % (37.0-47.0); Hemoglobin 12.4 g/dL (12.2-16.2); Lymphocytes # 1.7 K/mm3 (0.7-4.5); Lymphocytes % 29.5 % (10-50); Mean Corpuscular HGB Conc 33.4 g/dL (31.8-35.4); Mean Corpuscular Hemoglobin 29.2 pg (27.0-31.2); Mean Corpuscular Volume 87.4 fl (81-99); Mean Platelet Volume 8.3 fl (7.4-10.4); Monocytes # 0.4 K/mm3 (0.1-1.0); Monocytes % 6.8 % (1.7-9.3); Neutrophils # 3.3 K/mm3 (1.8-7.8); Neutrophils % 59.2 % (37.0-80.0); Platelet Count 343 K/mm3 (142-424); Red Blood Count 4.25 M/mm3 (4.20-5.40); Red Cell Distribution Width 13.8 % (11.5-17.5); White Blood Count 5.6 K/mm3 (4.8-10.8)
[2020-11-18 15:15] LABS: T4 (Thyroxine) 13.5 ug/dl (5.53-11.0)
[2020-11-18 15:16] LABS: 25-OH Vitamin D, Total 39.1 ng/mL (30-100)
[2020-11-18 15:29] LABS: Thyroid Stimulating Hormone 3.95 uIU/mL (0.465-4.68)
[2020-11-18 15:47] LABS: Vitamin B12 837 pg/mL (239-931)
== END ==
PROVIDERS: Visit Provider Nurse Practitioner Family
DX: Z00.00 Encounter for general adult medical examination without abnormal findings (principal); E55.9 Vitamin D deficiency, unspecified; Z79.899 Other long term (current) drug therapy
CPT/HCPCS: 80053; 80061; 82306; 82607; 84436; 84443; 85025

== ENCOUNTER → 2020-12-23 11:15 | Outpatient (CLI) | payer OTHER, SELFPAY ==
[2020-12-23 11:59] LABS: Chloride 99 mmol/L (98-107); Potassium 3.3 mmoL/L (3.5-5.1); Sodium 140 mmol/L (136-145)
[2020-12-23 12:02] LABS: Blood Urea Nitrogen 21 mg/dl (7-17); Estimated Glomerular Filt Rate 66 ml/min (>60); GFR (African American) 80 ML/MIN (>60)
[2020-12-23 12:03] LABS: Anion Gap 16.3 mEq/L (5-15); Calcium 9.9 mg/dl (8.4-10.2); Carbon Dioxide 28 mmol/L (22.0-30.0); Glucose 130 mg/dl (74-100)
[2020-12-23 12:10] LABS: NT Pro Brain Natriuretic Pep. 236 pg/mL (0-125)
== END ==
PROVIDERS: Visit Provider Physician Assistant
DX: I11.0 Hypertensive heart disease with heart failure (principal); I25.118 Atherosclerotic heart disease of native coronary artery with other forms of angina pectoris; E78.2 Mixed hyperlipidemia; R07.9 Chest pain, unspecified; R06.02 Shortness of breath; R42 Dizziness and giddiness; Z95.5 Presence of coronary angioplasty implant and graft
CPT/HCPCS: 36415; 80048; 83880

== ENCOUNTER → 2021-03-30 07:48 | Outpatient (CLI) | payer OTHER, SELFPAY ==
--- NOTE | 2021-03-30 07:48 | MM_ITS ---
PROCEDURE: MM DIG SCREENING MAMM BI W/CAD Digital Breast Tomosynthesis Included CLINICAL INDICATION: screening xmg COMPARISON: MG DMSB DIG MAMM-SCREEN ABHINAV from 10/06/2015 MG DMSB DIG MAMM-SCREEN ABHINAV W/CAD from 06/02/2017 MG MM DIG SCREENING MAMM BI W/CAD from 03/20/2019 MG MM DIG SCREENING MAMM BI W/CAD from 03/23/2020 TECHNIQUE: Standard CC and MLO images and 3D Tomosynthesis was obtained. R2 CAD reviewed. FINDINGS: Average fibroglandular tissue. In the upper aspect right breast there is a well circumscribed 3 mm nodule benign-appearing. This was not present on previous exam. Benign-appearing nodule with central lucency noted in the central aspect of right breast inferiorly measuring 4 mm and may be due to small lymph node. Left breast has an unremarkable appearance. There are scattered benign-appearing calcifications. IMPRESSION: Probably benign findings right breast. Recommend six-month follow-up. BI-RAD Category: 3 Probably Benign Finding Short Term Follow-Up FOLLOW-UP: 6M 6 Month Follow-up (A letter has been sent to the patient regarding results of the study.) Dictated by: Hugh Mathis MD 04/07/2021 13:11 Hugh Mathis MD in [place] 04/07/2021 13:11
== END ==
PROVIDERS: PCP Physician Assistant; Visit Provider Nurse Practitioner Obstetrics & Gynecology
DX: Z12.31 Encounter for screening mammogram for malignant neoplasm of breast (principal)
CPT/HCPCS: 77063; 77067

== ENCOUNTER → 2021-04-30 15:41 | Outpatient (CLI) | payer OTHER, SELFPAY | PROVIDERS: PCP Physician Assistant; Visit Provider Physician Assistant | DX: Z20.822 Contact with and (suspected) exposure to COVID-19 (principal) | CPT/HCPCS: C9803; U0003; U0005 ==

== ENCOUNTER 2021-05-11 15:19 | Emergency (ER) | payer OTHER, SELFPAY ==
[2021-05-11 15:47] VITALS: PULSE 85; RESP 20; O2SAT 95; BMI 43.2
--- NOTE | 2021-05-11 16:16 | HMH.EDUTC ---
[facility] [place] Clinical Impression: Left knee sprain Qualifiers: Encounter type: initial encounter Involved ligament of knee: unspecified ligament Qualified Code(s): S83.92XA - Sprain of unspecified site of left knee, initial encounter Disposition: Home, Self-Care Condition on Discharge: Good Instructions: How to Use Crutches, Knee Sprain, DI for Knee Sprain, How to Use a Knee Immobilizer Additional Instructions: Rest the extremity, apply ice for 15 minutes as tolerated three or four times per day, Elevate the extremity as tolerated while you are resting. Take ibuprofen for pain. I sent in a prescription to your pharmacy. Follow up with Dr. Villagran (orthopedics). I put in a referral but you need to call his office and schedule an appointment. Follow up with your regular doctor. GO TO THE ER FOR ANY WORSENING SYMPTOMS Prescriptions: Ibuprofen [Ibuprofen 600mg Tablet] 600 mg PO Q6HP PRN #30 tab PRN Reason: Mild Pain Transmission Status: Pending to [id number] Referrals: Janice Fitzpatrick PA [Primary Care Provider] - Mathieu Villagran MD [Staff Physician] - Time of Disposition: 17:06 Medical Decision Making - Medical Records Medical records reviewed: No: I reviewed the patient's medical records. - Wolfgang Inquiry Pt receiving controlled substance: No Vital Signs: 05/11/21 15:47 Pulse Rate [Left Radial] 85 Respiratory Rate 20 02 Sat by Pulse Oximetry 95 Oxygen Delivery Method Room Air Orders (Tests/Meds): ORDERS Category Date Time Status XR knee LT 3V Stat Exams 05/11/21 16:17 Taken XR tibia fibula LT 2V Stat Exams 05/11/21 16:17 Taken - Radiology Data #1 Image(s): Tib/Fib Image Reviewed: Yes I reviewed the patient's radiology image, Yes I have reviewed radiologist's interpretation Preliminary Findings: No Fracture Seen PROCEDURE: XR TIBIA FIBULA LT 2V CLINICAL INDICATION: pain COMPARISON: No exams were available for comparison FINDINGS: No fracture or dislocation. No lytic or blastic change. There is normal mineralization. There are minimal osteoarthritic changes involving all 3 compartments of the knee. Other findings:None. IMPRESSION: Mild osteoarthritis of the knee otherwise negative Dictated by: Hugh Mathis MD 05/11/2021 17:06 in [place] #2 Image(s): Knee Image Reviewed: Yes I reviewed the patient's radiology image, Yes I have reviewed radiologist's interpretation Preliminary Findings: No Fracture Seen FINDINGS: No fracture or dislocation. No lytic or blastic change. There is normal mineralization. There are minimal osteoarthritic changes involving all 3 compartments of the knee. Other findings:None. IMPRESSION: Mild osteoarthritis of the knee otherwise negative Dictated by: Hugh Mathis MD 05/11/2021 17:06 in [place] [facility] [place]PI - General Stated complaint: AO felt like leg was giving out Time Seen by Provider: 05/11/21 16:16 Mode of Arrival: Ambulatory Source of Information: Patient Limitations: No Limitations Description of Symptoms (Recalled from Triage Doc. by RN): standing on a ladder and her left knee popped and felt like the bone was going to snap - History of Present Illness Provider Complaint: She states that this morning she was up on a ladder when she felt her left knee give out. She began having pain of the medial aspect of the knee. Since then she has had pain with walking and bending the knee. - Related Data Home Medications Medication Instructions Recorded Confirmed buprenorphine 8 mg-naloxone 2 mg 1 tab SUBLINGUAL BID tab 10/10/17 05/10/21 sublingual tablet fluoxetine 40 mg capsule 80 mg PO DAILY cap 03/12/19 05/10/21 donepezil 10 mg tablet 10 mg PO DAILY #30 tab 04/18/19 05/10/21 aspirin 81 mg tablet,delayed 81 mg PO DAILY tab 12/21/20 05/10/21 release cholecalciferol (vitamin D3) 25 25 mcg PO DAILY cap 12/21/20 05/10/21 mcg (1,000 unit) capsule olanzapine 2.5
--- NOTE | 2021-05-11 16:17 | XR_ITS ---
PROCEDURE: XR KNEE LT 3V CLINICAL INDICATION: pain COMPARISON: No exams were available for comparison FINDINGS: No fracture or dislocation. No lytic or blastic change. There is normal mineralization. Mild osteoarthritic changes involve all 3 compartments. Other findings:None. IMPRESSION: Mild osteoarthritis Dictated by: Hugh Mathis MD 05/11/2021 17:11 Hugh Mathis MD in [place] 05/11/2021 17:11
[2021-05-11 17:19] VITALS: BP 128/68; PULSE 86; RESP 16; TEMP 36.8
== END 2021-05-11 17:42 | disposition home or self-care (01) ==
PROVIDERS: Emergency Provider Nurse Practitioner Family; PCP Physician Assistant
DX: S83.92XA Sprain of unspecified site of left knee, initial encounter (principal); X50.1XXA Overexertion from prolonged static or awkward postures, initial encounter; Y92.019 Unspecified place in single-family (private) house as the place of occurrence of the external cause; I25.10 Atherosclerotic heart disease of native coronary artery without angina pectoris; E78.5 Hyperlipidemia, unspecified; I10 Essential (primary) hypertension; E03.9 Hypothyroidism, unspecified; Z79.899 Other long term (current) drug therapy
CPT/HCPCS: 29505; 73562; 73590; 99202; G0463

== ENCOUNTER → 2021-06-16 09:45 | Outpatient (CLI) | payer OTHER, SELFPAY ==
--- NOTE | 2021-06-16 09:49 | XR_ITS ---
PROCEDURE: XR SHOULDER RT MIN 2V CLINICAL INDICATION: BL shoulder pain COMPARISON: CR XR SHOULDER LT MIN 2V from 06/16/2021 FINDINGS: The clavicle is intact and the AC joint appears normal. There is a slightly lateral downsloping acromion process but there is no significant subacromial stenosis. The humeral head and glenoid appear normal. There are no soft tissue calcifications. IMPRESSION: No acute findings. Dictated by: Dr. Navin Medina MD 06/16/2021 10:31 Dr. Navin Medina MD in [place] 06/16/2021 10:31
--- NOTE | 2021-06-16 09:49 | XR_ITS ---
PROCEDURE: XR SHOULDER LT MIN 2V CLINICAL INDICATION: BL shoulder pain COMPARISON: Right shoulder same date FINDINGS: The clavicle is intact and the AC joint appears normal. There is a slightly lateral downsloping acromion process but there is no subacromial stenosis. The humeral head and glenoid appear normal. There are no soft tissue calcifications. IMPRESSION: No acute findings. Dictated by: Dr. Navin Medina MD 06/16/2021 10:35 Dr. Navin Medina MD in [place] 06/16/2021 10:35
== END ==
PROVIDERS: PCP Physician Assistant; Visit Provider Orthopaedic Surgery
DX: M25.511 Pain in right shoulder (principal); M25.512 Pain in left shoulder
CPT/HCPCS: 73030

== ENCOUNTER 2021-06-16 11:34 | Outpatient (RCR) | payer OTHER, SELFPAY | END 2021-06-16 12:10 | disposition home or self-care (01) | LOC: OT 11:34 | PROVIDERS: Visit Provider Orthopaedic Surgery | DX: G56.02 Carpal tunnel syndrome, left upper limb (principal) | CPT/HCPCS: 97763 ==

== ENCOUNTER 2021-06-22 08:00 | Outpatient (RCR) | payer OTHER, SELFPAY ==
--- NOTE | 2021-04-30 10:20 | HMH.PTOPEV ---
PT Outpatient Evaluation Rehab PT Outpatient Evaluation Start: 04/30/21 10:03 Freq: Status: Active Protocol: Document 04/30/21 10:03 DONITA (Rec: 04/30/21 10:19 DONITA [id number]) Electronically Signed By Kaden Stern, PT 04/30/21 10:03 Outpatient Therapy Subjective History Subjective History Pt reports h/o chronic left heel pain beginning ~8 months ago. Pt reports insidious onset left heel pain, 'some improvement with boot and medicine'. Pt reports no imaging of left heel to date. Pt reports localized posterior left heel pain this am. Chief Complaint Pain,Swelling Symptom Type Ache,Sharp,Dull Symptoms Relieved By Rest/Positioning,Prescription Meds Symptoms Aggravated By Standing,Walking Prior Functional Limitations Housework,Standing,Walking Current Functional Limitations Housework,Standing,Walking Symptom Description Constant but Variable Level of pain today (0-10) 6 Pain scale - at its best (0-10) 5 Pain scale - at its worst (0-10) 8 Ankle/Foot Eval Gait Observation General Gait Pattern Observation Antalgic Gait Palpation Tenderness left Ankle/Foot Palpation Findings Tenderness Ankle/Foot Palpation Overall Comment 3/4 achillles insertion ROM Ankle/Foot Dorsiflexion w/Knee Extended 0 Active Range Motion (degrees) Ankle/Foot Plantar Flexion Active Range 0-45 of Motion (degrees) Ankle/Foot Eversion Active Range of 0-20 Motion (degrees) Ankle/Foot Inversion Active Range of 0-35 Motion (degrees) MMT Ankle Dorsiflexion Strength Grade 4 Good Ankle Plantarflexion Strength Grade 4 Good Foot Eversion Strength Grade 4 Good Foot Inversion Strength Grade 4- Good- Outpatient Therapy Assessment Impairments Problems/Impairmments Palpation Tenderness,Impaired Range of Motion,Impaired Strength,Impaired Gait Pattern ,Impaired Walking,Impaired Standing,Impaired Household Care,Subjective C/O Pain, Impaired Self Care/Self Management Prognosis Rehab Potential Good Clinical Impression Consistent with Diagnosis Yes Short Term Goals Number of Weeks 4 Decreased Palpation Tenderness Yes: 1-2/4 left achilles insertion Increase Range of Motion Yes: 75% of WFL LEFT ANKLE
== END 2021-06-22 08:05 | disposition home or self-care (01) ==
LOC: PT 08:00
PROVIDERS: PCP Physician Assistant; Visit Provider Podiatrist
DX: M76.62 Achilles tendinitis, left leg (principal); M79.672 Pain in left foot
CPT/HCPCS: 97014; 97033; 97035; 97110; 97140; 97163; G0283

== ENCOUNTER → 2021-07-30 15:07 | Outpatient (CLI) | payer OTHER, SELFPAY ==
--- NOTE | 2021-07-30 15:51 | MR_ITS ---
PROCEDURE INFORMATION: Exam: MR Left Lower Extremity Joint Without Contrast, Knee Exam date and time: 07/30/2021 3:51 PM Age: 50 years old Clinical indication: Pain; Knee; Left; Additional info: Evaluate for meniscal tear. Knee pain xyrs. [id number] ago heard a pop. Medial sided knee pain. Prior x-ray 05-11-21 TECHNIQUE: Imaging protocol: MR of the Left lower extremity joint without contrast. Exam focused on the knee. COMPARISON: CR XR KNEE LT 3V 05/11/2021 4:17 PM FINDINGS: Bones and cartilage: There is a subchondral insufficiency fracture in the medial tibial plateau measuring approximately 2.0 x 1.8 cm (mediolateral x anteroposterior). No extension to the articular surface is seen. Fracture is recent/unhealed, with extensive surrounding marrow edema. There is mild mechanical/stress related edema in the peripheral aspect of the medial femoral condyle without fracture. Heterogeneous red marrow reconversion noted in the distal femur. Tricompartmental osteophyte formation, moderate in the patellofemoral compartment and [id number] in the tibiofemoral compartments. Full-thickness loss of cartilage along the median patellar ridge and central portion of the lateral patellar facet, with underlying subchondral signal alteration. Small cleft like defect in the lateral trochlear cartilage. Focal 3 mm full-thickness cartilage defect in the posterior aspect of the lateral femoral condyle with underlying marrow signal alteration. Minimal thinning of medial tibiofemoral compartment cartilage. Joint spaces: Trace fluid in the joint without overt effusion. Medial meniscus: Radial tear of the medial meniscus posterior horn measuring approximately 3 mm in width, in close proximity to the posterior root. Lateral meniscus: No lateral meniscus tear. Anterior cruciate ligament: Unremarkable. No tear. Posterior cruciate ligament: Unremarkable. No tear. Medial capsule and supporting structures: There is edema surrounding the mid to distal fibers of the medial collateral ligament. Suspect this to represent a sprain injury occurring secondarily in relation to the insufficiency fracture. Irregularity of the semimembranosus tendon insertion with tendinosis and partial tearing. Lateral capsule and supporting structures: Unremarkable. No tear. Extensor mechanism of knee: Unremarkable. No tear. Muscles: Unremarkable. Soft tissues: Nonspecific subcutaneous edema, most pronounced anteriorly in the infrapatellar/pretibial region. No organized subcutaneous fluid collection. IMPRESSION: 1. Recent/unhealed subchondral insufficiency fracture of the medial tibial plateau with extensive surrounding marrow edema. 2. Medial collateral ligament sprain injury, probably a secondary process related to the subchondral fracture. 3. Radial tear of the medial meniscus posterior horn. 4. Tendinosis and partial tearing of the semimembranosus insertion. 5. Tricompartmental osteoarthrosis, with areas of full-thickness cartilage loss as described.
== END ==
PROVIDERS: PCP Physician Assistant; Visit Provider Orthopaedic Surgery
DX: M25.562 Pain in left knee (principal); G89.29 Other chronic pain
CPT/HCPCS: 73721

== ENCOUNTER 2021-08-03 11:29 | Outpatient (RCR) | payer OTHER, SELFPAY | END 2021-08-03 12:24 | disposition home or self-care (01) | LOC: PT 11:29 | PROVIDERS: Visit Provider Orthopaedic Surgery | DX: M25.562 Pain in left knee (principal) | CPT/HCPCS: 97760 ==

== ENCOUNTER → 2021-08-04 13:02 | Outpatient (CLI) | payer OTHER, SELFPAY ==
--- NOTE | 2021-08-04 13:02 | MR_ITS ---
PROCEDURE INFORMATION: Exam: MR Left Upper Extremity Joint Without Contrast; Shoulder Exam date and time: 08/04/2021 1:02 PM Age: 50 years old Clinical indication: Patient HX: Left shoulder pain, no injury, limited rom; Additional info: Evaluate for rotator cuff tear TECHNIQUE: Imaging protocol: MR of the Left upper extremity without contrast. Exam focused on the shoulder. COMPARISON: CR XR SHOULDER LT MIN 2V 06/16/2021 9:55 AM FINDINGS: Bones/joints: No acute fracture. No dislocation. Fluid: No significant joint effusion. No significant fluid within subacromial-subdeltoid bursa. Glenoid labrum: Grossly intact. Supraspinatus tendon: Mild tendinosis. No definite tear. Infraspinatus tendon: Mild tendinosis. No definite tear. Subscapularis tendon: No definite tear. Teres minor tendon: No definite tear. Tendon of biceps brachii: No definite tear. Glenohumeral ligaments: Grossly intact. Muscles: Unremarkable. Soft tissues: Unremarkable. IMPRESSION: Rotator cuff tendinosis.
== END ==
PROVIDERS: PCP Physician Assistant; Visit Provider Orthopaedic Surgery
DX: M25.512 Pain in left shoulder (principal)
CPT/HCPCS: 73221

== ENCOUNTER → 2021-09-14 10:24 | Outpatient (CLI) | payer OTHER, SELFPAY ==
--- NOTE | 2021-09-14 10:28 | XR_ITS ---
FINAL REPORT CLINICAL HISTORY: LT knee pain FINDINGS: 4 views of the left knee were obtained. There is no acute fracture or dislocation. There are osteophytes along the undersurface of the patella. There is sharpening of the tibial spines. The soft tissues are unremarkable. IMPRESSION: Mild osteoarthritis. Reviewed, Interpreted and Dictated by Eligio Underwood MD Transcribed by Phil Mata Authenticated by Eligio Underwood MD on 09/14/2021 01:14:54 PM [facility]
--- NOTE | 2021-09-14 10:28 | XR_ITS ---
FINAL REPORT CLINICAL HISTORY: LT hip pain FINDINGS: 2 views of the left hip with an AP pelvis were obtained. There is healed fracture deformity of the right superior and inferior pubic rami. There is no acute fracture or dislocation. There has been right hip arthroplasty. The left hip joint space is preserved. IMPRESSION: No acute process. Reviewed, Interpreted and Dictated by Eligio Underwood MD Transcribed by Phil Mata Authenticated by Eligio Underwood MD on 09/14/2021 01:14:50 PM [facility]
== END ==
PROVIDERS: PCP Physician Assistant; Visit Provider Orthopaedic Surgery
DX: S83.242A Other tear of medial meniscus, current injury, left knee, initial encounter (principal); S83.412A Sprain of medial collateral ligament of left knee, initial encounter; M70.72 Other bursitis of hip, left hip
CPT/HCPCS: 73502; 73564

== ENCOUNTER → 2021-09-28 16:00 | Outpatient (CLI) | payer OTHER, SELFPAY | PROVIDERS: Visit Provider Physician Assistant | DX: Z11.52 Encounter for screening for COVID-19 (principal) | CPT/HCPCS: C9803; U0003; U0005 ==

== ENCOUNTER 2021-09-30 08:00 | Outpatient (RCR) | payer OTHER, SELFPAY ==
--- NOTE | 2021-06-24 09:13 | HMH.PTOPEV ---
PT Outpatient Evaluation Rehab PT Outpatient Evaluation Start: 06/24/21 08:46 Freq: Status: Active Protocol: Document 06/24/21 08:46 DONITA (Rec: 06/24/21 09:12 DONITA [id number]) Electronically Signed By Kaden Stern, PT 06/24/21 08:46 Outpatient Therapy Subjective History Subjective History Pt reports h/o chronic left knee pain for ~1 month, and left ankle for ~6months. Pt reports left knee 'hurts so bad this morning I don't really feel the ankle'. Pt reports medial aspect left knee pain, and intermittent left ankle achilles area discomfort. Pt reports recent Xrays revealed left knee OA, and previous episode of skilled P.T. for ankle pain/ achilles tendinitis provided improvement, 'but I just couldn't get a ride all the time to continue'. Chief Complaint Pain,Stiff,Swelling,Weakness Symptom Type Ache,Sharp,Dull,Stabbing Symptoms Relieved By Rest/Positioning,Heat Symptoms Aggravated By Standing,Physical Activity, Walking Prior Functional Limitations Housework,Standing,Walking, Stairs Current Functional Limitations Housework,Standing,Walking, Stairs Symptom Description Constant but Variable Level of pain today (0-10) 8 Pain scale - at its best (0-10) 6 Pain scale - at its worst (0-10) 10 Hip/Knee Eval Gait Observation General Gait Pattern Observation Antalgic Gait Assistive Device Assistive Devices None / NA Palpation Tenderness left Knee Palpation Finding Tenderness Knee Palpation Overall Comment medial jt line 3/4, pes anserine 2/4 MMT Hip Flexion Strength Grade 4- Good- Hip Abduction Strength Grade 3+ Fair+ Hip Adduction Strength Grade 3+ Fair+ Hip Extension Strength Grade 4- Good- Hip External Rotation Strength Grade 4 Good Hip Internal Rotation Strength Grade 4 Good Knee Extension Strength Grade 4 Good Knee Flexion Strength Grade 4 Good ROM Knee Flexion Active Range of Motion ( 0-123 degrees) Ankle/Foot Eval Palpation Tenderness Ankle/Foot Palpation Findings Tenderness Ankle/Foot Palpation Overall Comment 1/4 achilles tendon ROM Ankle/Foot Dorsiflexion w/Knee Extended 0-8 Active Range Motion (degrees) Ankle/Fo
--- NOTE | 2021-07-20 08:46 | HMH.RHREAS ---
Rehab Reassessment Rehab OP Re-assessment Start: 07/20/21 08:19 Freq: Status: Active Protocol: Document 07/20/21 08:19 DONITA (Rec: 07/20/21 08:46 DONITA [id number]) Electronically Signed By Kaden Stern, PT 07/20/21 08:19 Rehab Re-assessment Subjective Subjective Pt reports significant improvement in left knee pain since being prescribed Voltaren gel by PCP, 'I'd say I was 100% better and only ahd about 2/10 pain'. Pt however, reports a fall 2 days ago, re -injuring left knee, and now reports '04/30' left knee pain. Objective Objective Notes AROM: LEFT KNEE 0-120, LEFT ANKLE DF 0-11 MMT: LEFT KNEE FLX, EXT 4/5, LEFT HIP FLX 4/5, LEFT HIP ABD ,ADD 3+/5, LEFT ANKLE PF 4+-5/ 5 TTP: LEFT KNEE MEDIAL JT LINE 3/4, LATERAL JT LINE 3/4, LEFT ACHILLES 0/4 Assessment Progress Assessment Progressing as Expected Assessment Notes IMPROVED AROM, STRENGTH, AND TTP Patient goals met STG'S 11/27 (PRE RECENT FALL) LTG'S 09/28 (PRE RECENT FALL) Goals Not Met STG'S 12/27, LTG'S 01/26 Plan Plan Pt to continue w/skilled P.T. to make further improvements in ROM, strength, and TTP to allow for optimal function Frequency of Therapy 2-3x/wk Duration of therapy 4-6wks Time and Billing Re-Eval Time 15 Re-Eval Billing Units 1 PHYSICIAN CERTIFICATION: I certify the specified therapy services for Lesia Doran are required, authorized, and reviewed every 30 days.
--- NOTE | 2021-08-17 08:28 | HMH.RHREAS ---
Rehab Reassessment Rehab OP Re-assessment Start: 07/20/21 08:19 Freq: Status: Active Protocol: Document 08/17/21 08:22 DONITA (Rec: 08/17/21 08:28 DONITA [id number]) Electronically Signed By Kaden Stern, PT 08/17/21 08:22 Rehab Re-assessment Subjective Subjective Pt reports improved left knee pain since fall on 07/18 despite non-compliance with skilled P.T. visits/POC. Pt reports 1/10 left knee pain on VAS w/activity, and can tolerate '20minutes' of standing and walking before left knee starts to hurt. Objective Objective Notes AROM: LEFT KNEE 0-128, LEFT ANKLE DF 0-12 MMT: LEFT KNEE FLX, EXT 4-4+/5 , LEFT HIP FLX 4/5, LEFT HIP ABD,ADD 4--4/5(w/pain), LEFT ANKLE PF 4+-5/5 TTP: LEFT KNEE MEDIAL JT LINE 3/4, LATERAL JT LINE 0-1/4, LEFT ACHILLES 0/4, L MEDIAL HAMSTRING INSERTION 3/4 EDEMA:LEFT KNEE MID PATELLA 44CM Assessment Progress Assessment Progressing as Expected Assessment Notes improved AROM, strength, however, TTP continues to be provocative Patient goals met STG'S 12/27 LTG'S 11/26 Goals Not Met STG'S 11/27, LTG'S 11/26 Plan Plan Pt to continue w/skilled P.T. to make further improvements in gait, strength(emphasis on left hip mm to help stabilize left knee), and TTP to allow for optimal function Frequency of Therapy 1-3x/wk Duration of therapy 4-6wks Time and Billing Re-Eval Time 15 Re-Eval Billing Units 1 PHYSICIAN CERTIFICATION: I certify the specified therapy services for Lesia Doran are required, authorized, and reviewed every 30 days.
--- NOTE | 2021-09-16 08:26 | HMH.RHREAS ---
Rehab Reassessment Rehab OP Re-assessment Start: 07/20/21 08:19 Freq: Status: Active Protocol: Document 09/16/21 08:20 DONITA (Rec: 09/16/21 08:26 DONITA [id number]) Electronically Signed By Kaden Stern, PT 09/16/21 08:20 Rehab Re-assessment Subjective Subjective Pt reports left knee exacerbation yesterday d/t grandchild throwing toy car and hitting 'it right where it 's been sore of course'. Pt reports before incident yesterday 2/10 left knee pain on VAS, and felt 80-90% better overall. Objective Objective Notes AROM: LEFT KNEE WFL PAIN AT END ROM FLX, LEFT ANKLE DF WFL MMT: LEFT KNEE FLX, EXT 4-4+/5 , LEFT HIP FLX 4/5, LEFT HIP ABD 4-4+/5, HIP ADD 4-/5 W/ PAIN, LEFT ANKLE PF 4+-5/5 TTP: LEFT KNEE MEDIAL JT LINE 3/4, LATERAL JT LINE 0/4, LEFT ACHILLES 0/4, L MEDIAL HAMSTRING INSERTION 2/4 EDEMA:LEFT KNEE MID P[place]LLA 44CM Assessment Progress Assessment Slower Than Expected Assessment Notes SLIGHT IMPROVEMENT IN LEFT HIP STRENGTH (ABD), HOWEVER, NO SIGNIFICANT CHANGES IN TTP OR SWELLING Patient goals met STG'S 01/27 LTG'S 11/26 Goals Not Met STG'S 10/27, LTG'S 11/26 Plan Plan Pt to continue w/skilled P.T. to make further improvements in gait, strength(emphasis on left hip mm to help stabilize left knee), and TTP to allow for optimal function Frequency of Therapy 1-2X/WK Duration of therapy 2-4WKS Time and Billing Re-Eval Time 15 Re-Eval Billing Units 1 PHYSICIAN CERTIFICATION: I certify the specified therapy services for Lesia Doran are required, authorized, and reviewed every 30 days.
== END 2021-09-30 08:05 | disposition home or self-care (01) ==
LOC: PT 08:00
PROVIDERS: PCP Physician Assistant; Visit Provider Orthopaedic Surgery
DX: M17.12 Unilateral primary osteoarthritis, left knee
CPT/HCPCS: 97010; 97014; 97033; 97035; 97110; 97163; 97164; G0283

== ENCOUNTER 2021-09-30 10:30 | Outpatient (RCR) | payer OTHER, SELFPAY | END 2021-09-30 11:24 | disposition home or self-care (01) | LOC: OT 10:30 | PROVIDERS: Visit Provider Orthopaedic Surgery | DX: G56.02 Carpal tunnel syndrome, left upper limb (principal) | CPT/HCPCS: 97763 ==

== ENCOUNTER → 2021-09-30 13:48 | Outpatient (CLI) | payer OTHER, SELFPAY ==
--- NOTE | 2021-09-30 13:49 | MM_ITS ---
PROCEDURE INFORMATION: Exam: MG Right Diagnostic Breast Tomosynthesis Exam date and time: 09/30/2021 1:49 PM Age: 50 years old Clinical indication: Short-term radiographic follow-up for a 0.3 cm right upper breast mass TECHNIQUE: Imaging protocol: Right Diagnostic tomosynthesis and 2D mammography including computer-aided detection (CAD) when performed. Unilateral or bilateral exam. COMPARISON: 1. MG MM DIG SCREENING MAMM BI W/CAD 03/30/2021 8:02 AM 2. MG MM DIG SCREENING MAMM BI W/CAD 03/23/2020 8:09 AM FINDINGS: MAMMOGRAPHY: The breast tissue is composed of scattered areas of fibroglandular density. There is no stellate mass, architectural distortion or suspicious microcalcifications to suggest malignancy. No suspicious masses. No skin thickening or axillary adenopathy. IMPRESSION: No mammographic evidence of malignancy. Annual bilateral mammographic screening is recommended in March 2022 unless otherwise clinically indicated. ASSESSMENT: BI-RADS Category 1: Negative
== END ==
PROVIDERS: PCP Physician Assistant; Visit Provider Nurse Practitioner Obstetrics & Gynecology
DX: R92.8 Other abnormal and inconclusive findings on diagnostic imaging of breast (principal)
CPT/HCPCS: 77061; 77065; 80053; 80061; 82306; 84443; 85025; G0279

== ENCOUNTER → 2021-10-26 08:51 | Outpatient (CLI) | payer OTHER, SELFPAY ==
--- NOTE | 2021-10-26 08:59 | XR_ITS ---
FINAL REPORT CLINICAL HISTORY: knee pain COMPARISON: September 14, 2021 FINDINGS: LEFT KNEE: Four views of the left knee obtained. There is no acute fracture or dislocation. There is mild degenerative change which is stable. There is no soft tissue abnormality. IMPRESSION: Mild degenerative change. Reviewed, Interpreted and Dictated by Dillan Tracy III, MD Transcribed by Lauren Horton Authenticated by Dillan Tracy III, MD on 10/26/2021 11:08:47 AM [facility]
[2021-10-26 11:57] LABS: Chloride 94 mmol/L (98-107); Sodium 132 mmol/L (136-145)
[2021-10-26 11:58] LABS: Potassium 4.4 mmoL/L (3.5-5.1)
[2021-10-26 12:00] LABS: Alanine Aminotransferase 26 U/L (12-78); Anion Gap 14.4 mEq/L (5-15); Aspartate Amino Transferase 44 U/L (14-36); Blood Urea Nitrogen 16 mg/dl (7-17); Carbon Dioxide 28 mmol/L (22.0-30.0); Estimated Glomerular Filt Rate 58 ml/min (>60); GFR (African American) 70 ML/MIN (>60)
[2021-10-26 12:01] LABS: Albumin Level 4.5 g/dl (3.5-5.0); Albumin/Globulin Ratio 1.5 (1.1-1.8); Alkaline Phosphatase 102 U/L (38-126); Bilirubin,Total 0.8 mg/dl (0.2-1.3); Calcium 8.6 mg/dl (8.4-10.2); Glucose 105 mg/dl (74-100); Total Protein,Serum 7.5 g/dl (6.3-8.2)
== END ==
PROVIDERS: PCP Physician Assistant; Visit Provider Orthopaedic Surgery
DX: M25.562 Pain in left knee (principal); N28.9 Disorder of kidney and ureter, unspecified
CPT/HCPCS: 36415; 73564; 80053

== ENCOUNTER 2021-12-17 08:45 | Emergency (ER) | payer OTHER, SELFPAY ==
[2021-12-17] VITALS (9 sets, daily range): BP systolic 83–123; BP diastolic 48–62; PULSE 60–77; RESP 16–21; TEMP 36.8–36.9; O2SAT 96–98; BMI 42.4
--- NOTE | 2021-12-17 09:05 | HMH.EDGENADL ---
ED Disposition Clinical Impression: Urinary tract infection Qualifiers: Urinary tract infection type: acute cystitis Hematuria presence: without hematuria Qualified Code(s): N30.00 - Acute cystitis without hematuria Vomiting Qualifiers: Vomiting type: unspecified Nausea presence: with nausea Qualified Code(s): R11.2 - Nausea with vomiting, unspecified Cholelithiases Qualifiers: Cholelithiasis location: gallbladder Cholecystitis presence: without cholecystitis Biliary obstruction: without biliary obstruction Qualified Code(s): K80.20 - Calculus of gallbladder without cholecystitis without obstruction Disposition: Home, Self-Care Condition on Discharge: Good Instructions: DI for Diarrhea and Traveler's Diarrhea -- Adult, DI for Diarrhea and Traveler's Diarrhea -- Child, DI for Nausea -- Adult, DI for Nausea -- Child Additional Instructions: Take antibiotics as directed for the urinary tract infection, take Zofran as directed as needed for nausea, vomiting. Follow-up with your PCP within the next week, return with new or concerning symptoms. Drink plenty of fluids to stay hydrated. Prescriptions: Doxycycline Monohydrate [Doxycycline [place] 100mg Tab] 100 mg PO BID 7 Days #14 tab Transmission Status: Received by [id number] Ondansetron [Zofran 4mg ODT] 4 mg SL TIDP PRN 3 Days #12 tab PRN Reason: Nausea And Vomiting Transmission Status: Received by [id number] Referrals: Janice Fitzpatrick PA [Primary Care Provider] - Christopher Thompson MD [Staff Physician] - - Critical Care Critical Care Time: No Attestation: On , the high probability of a clinically significant, sudden or life threatening deterioration of the following system(s) required my full and direct attention, intervention and personal management. The time I documented below is in addition to time spent performing reported procedures but includes the following listed in this critical care notation. Medical Decision Making - Medical Records Medical records reviewed: Yes: I reviewed the patient's medical records. - Wolfgang Inquiry Pt receiving controlled substance: No Vital Signs: 12/17/21 08:46 12/17/21 09:00 12/17/21 10:01 Temperature 98.5 F Temperature Source Oral Pulse Rate 76 63 Pulse Rate [Right Radial] 77 Respiratory Rate 18 21 18 Blood Pressure 121/62 105/49 L Blood Pressure [Right Arm] 123/52 L Blood Pressure Mean 78 67 Blood Pressure Mean [Right Arm] 75 Blood Pressure Source [Right Arm] Automatic Cuff Blood Pressure Position [Right Arm] Sitting 02 Sat by Pulse Oximetry 96 96 97 Oxygen Delivery Method Room Air Room Air - Lab Data Lab Results 12/17/21 09:20: Sodium 139, Potassium 3.1 L, Chloride 93 L, Carbon Dioxide 37 H, Anion Gap 12.1, BUN 19 H, Creatinine 0.80, Estimated Creat Clear 73, Estimated GFR 75, Est GFR ( Amer) 91, Glucose 136 H, Calcium 9.5, Total Bilirubin 0.8, AST 50 H, ALT 34, Alkaline Phosphatase 101, Total Protein 7.9, Albumin 4.3, Globulin 3.6 H, Albumin/Globulin Ratio 1.2, Lipase 89 12/17/21 09:37: Urine Color Yellow, Urine Appearance Cloudy, Urine pH 5.5, Ur Specific [place] 1.010, Urine Protein Trace, Urine Glucose (UA) Negative, Urine Ketones Negative, Urine Blood Trace-l, Urine Nitrate Negative, Urine Bilirubin Negative, Urine Urobilinogen 0.2, Ur Leukocyte Esterase 3+ A, Urine WBC 3-5, Ur Squamous Epith Cells Occasional, Urine Bacteria Trace 12/17/21 09:41: WBC 11.6 H, RBC 4.37, Hgb 12.1 L, Hct 36.5 L, MCV 83.6, MCH 27.8, MCHC 33.2, RDW 14.2, Plt Count 351, MPV 7.6, Neut % (Auto) 85.7 H, Lymph % (Auto) 8.3 L, [place] % (Auto) 4.7, Eos % (Auto) 0.7, Baso % (Auto) 0.6, Neut # (Auto) 10.0 H, Lymph # (Auto) 1.0, [place] # (Auto) 0.6, Eos # (Auto) 0.1, Baso # (Auto) 0.1, Total Counted 100, Neutrophils % (Manual) 84 H, Lymphocytes % (Manual) 12, Monocytes % (Manual) 4, Platelet Estimate Normal, RBC Morphology Normal Result diagrams: 12/17/21 09:41 12/17/21 09:20 Orders (Test
--- NOTE | 2021-12-17 09:22 | ECG_ITS ---
APPROVED REPORT Exam: Resting ECG HR:64 bpm ECG Measurements Heart Rate 64 AXES HI 172 P -51 QRSd 109 QRS -39 QT 432 T 8 QTc 442 Conclusion ECTOPIC ATRIAL RHYTHM LEFT AXIS DEVIATION [QRS AXIS < -30] PATTERN CONSISTENT WITH PULMONARY DISEASE INCOMPLETE RIGHT BUNDLE BRANCH BLOCK [90+ ms QRS DURATION, TERMINAL R IN V1/V2, 40+ ms S IN I/aVL/V4/V5/V6] MINIMAL VOLTAGE CRITERIA FOR LVH, CONSIDER NORMAL VARIANT [MEETS CRITERIA IN ONE OF: R(aVL), S(V1), R(V5), R(V5/V6)+S(V1)] POSSIBLE SEPTAL MYOCARDIAL INFARCTION , PROBABLY OLD [30 ms Q WAVE IN V1/V2] ABNORMAL ECG UNCONFIRMED REPORT Electronically signed by : Yared Schwartz MD 12/19/2021 20:16:32
[2021-12-17 09:38] LABS: Alanine Aminotransferase 34 U/L (12-78); Albumin Level 4.3 g/dl (3.5-5.0); Albumin/Globulin Ratio 1.2 (1.1-1.8); Alkaline Phosphatase 101 U/L (38-126); Aspartate Amino Transferase 50 U/L (14-36); Bilirubin,Total 0.8 mg/dl (0.2-1.3); Blood Urea Nitrogen 19 mg/dl (7-17); Calcium 9.5 mg/dl (8.4-10.2); Carbon Dioxide 37 mmol/L (22.0-30.0); Chloride 93 mmol/L (98-107); Creatinine Clearance Estimated 73 mL/min (50-200); Estimated Glomerular Filt Rate 75 ml/min (>60); GFR (African American) 91 ML/MIN (>60); Globulin 3.6 g/dL (1.3-3.2); Glucose 136 mg/dl (74-100); Lipase 89 U/L (23-300); Sodium 139 mmol/L (136-145); Total Protein,Serum 7.9 g/dl (6.3-8.2)
[2021-12-17 09:47] LABS: Anion Gap 12.1 mEq/L (5-15); Potassium 3.1 mmoL/L (3.5-5.1)
[2021-12-17 09:50] LABS: Basophils # 0.1 K/mm3 (0-0.2); Basophils % 0.6 % (0.1-2.0); Eosinophils # 0.1 K/mm3 (0.0-0.4); Eosinophils % 0.7 % (0.1-12.0); Hematocrit 36.5 % (37.0-47.0); Hemoglobin 12.1 g/dL (12.2-16.2); Lymphocytes % 8.3 % (10-50); Mean Corpuscular HGB Conc 33.2 g/dL (31.8-35.4); Mean Corpuscular Hemoglobin 27.8 pg (27.0-31.2); Mean Corpuscular Volume 83.6 fl (81-99); Mean Platelet Volume 7.6 fl (7.4-10.4); Monocytes # 0.6 K/mm3 (0.1-1.0); Monocytes % 4.7 % (1.7-9.3); Neutrophils % 85.7 % (37.0-80.0); Platelet Count 351 K/mm3 (142-424); Red Blood Count 4.37 M/mm3 (4.20-5.40); Red Cell Distribution Width 14.2 % (11.5-17.5); White Blood Count 11.6 K/mm3 (4.8-10.8)
[2021-12-17 09:51] LABS: MANUAL DIFFERENTIAL MANUAL DIFFERENTIAL (MANUAL DIFF)
--- NOTE | 2021-12-17 09:58 | PC.NURSE ---
pt resting in bed, given a sheet(per her request), call light with in reach and watching TV. Will continue to monitor
[2021-12-17 10:15] LABS: Microscopic, Urine URINE MICROSCOPIC (MICROSCOPIC)
[2021-12-17 10:19] LABS: Appearance,Urine CLOUDY (Clear); Bilirubin,Urine Negative (Negative); Blood, Urine TRACE-L (Negative); Color,Urine YELLOW (Yellow); Glucose,Urine (UA) Negative (Negative); Ketones,Urine Negative (Negative); Leukocyte Esterase,Urine 3+ (Negative); Nitrate,Urine Negative (Negative); PH,Urine 5.5 (5.0-8.5); Protein,Urine TRACE (Negative); Urobilinogen,Urine 0.2 EU/dl (0.2)
[2021-12-17 10:20] LABS: Lymphocytes % 12 % (10-50); Monocytes % 4 % (2-9); Neutrophils % 84 % (42-76); Platelet Estimate Normal; RBC Morphology Normal; Total Cells Counted 100
--- NOTE | 2021-12-17 10:24 | CT_ITS ---
FINAL REPORT CLINICAL HISTORY: epigastric abd pain, vomiting x 1 day. diarrhea COMPARISON: March 18, 2020 FINDINGS: Technique: The patient was injected with intravenous contrast. Oral contrast was administered. Axial images through the abdomen and pelvis were performed. This study was performed with techniques to keep radiation doses as low as reasonably achievable (ALARA). Individualized dose reduction techniques using automated exposure control or adjustment of mA and/or kV according to the patient's size were employed. Abdomen: The lung bases are clear. The liver is normal in size and attenuation. There may be a few small gallstones within the gallbladder. Again noted is calcification within the splenic hilum. A peripherally calcified structure measuring 1.9 x 1.2 cm is favored to represent a splenic artery aneurysm which appears unchanged from previous. The adrenals are normal. The pancreas is unremarkable. The kidneys enhance appropriately. The aorta is normal in caliber. There is no free fluid or adenopathy. There is a moderate hiatal hernia. Pelvis: The appendix is unremarkable. The uterus is present and lies midline. The urinary bladder is unremarkable. There is no free fluid or adenopathy. Streak artifact is seen arising from a right hip prosthesis. There is old healed fracture deformity within the right superior and inferior pubic rami. IMPRESSION: Moderate hiatal hernia. Probable gallstones within the gallbladder. Stable 1.9 cm splenic artery aneurysm. Reviewed, Interpreted and Dictated by Eligio Underwood MD Transcribed by Magy Reese Authenticated by Eligio Underwood MD on 12/17/2021 11:35:14 AM [facility]
[2021-12-17 10:32] LABS: Bacteria,Urine Trace /lpf; Squamous Epithelial Cell,Urine Occasional #/hpf (0-5)
--- NOTE | 2021-12-17 10:53 | PC.NURSE ---
pt to CT
== END 2021-12-17 14:36 | disposition home or self-care (01) ==
PROVIDERS: Emergency Provider Emergency Medicine; PCP Physician Assistant
DX: N30.00 Acute cystitis without hematuria (principal); K80.20 Calculus of gallbladder without cholecystitis without obstruction
CPT/HCPCS: 74177; 80053; 81001; 83690; 85007; 85025; 87086; 93005; 96360; 96361; 96375; 99284; Q9967

== ENCOUNTER → 2021-12-20 10:19 | Outpatient (POV) | payer OTHER, SELFPAY | PROVIDERS: Visit Provider Internal Medicine Nephrology | DX: Z00.00 Encounter for general adult medical examination without abnormal findings (principal) ==

== ENCOUNTER → 2021-12-20 11:08 | Outpatient (POV) | payer OTHER, SELFPAY ==
--- NOTE | 2021-12-20 12:41 | HMH.PMCON ---
Assessment and Plan (1) Lumbar back pain with radiculopathy affecting lower extremity Status: Chronic Category: Medical Code(s): M54.16 - Radiculopathy, lumbar region - Assessment and plan all Dx Assessment and Plan for all problems:: This patient is a very pleasant 51-year-old white female that comes to our clinic today for initial evaluation regarding chronic low back pain that she describes as constant, dull, aching. She rates the pain 10/10. Patient has had lumbar back pain for several years. Patient does not report any significant incident that caused the pain. However, the pain is present at all times. Pain increases with walking. Pain increases with standing for any length of time. Patient has been a patient of Dr. Lauro Mendez in [place] for quite some time. Receiving Suboxone. However, due to a urine drug screen issue she is no longer a patient there. Patient's Wolfgang #[id number] has been reviewed. Patient is awake alert oriented x3. In no acute distress. Flexion-extension lumbar spine somewhat guarded secondary to pain. Deep tendon reflexes upper and lower extremities normal. Motor strength upper and lower extremities normal. There is no gross sensory deficit. Patient has not had a lumbar MRI in the past. We will schedule this for her today. She will return to follow-up with us to review the MRI. HPI - Data of Consult Patient: new to practice Consult date: 12/20/21 Requesting Physician: Moo Shankar CRNA - Consult Narrative Reason for consult: Low back pain. History of present illness: Ms. Doran is a 51 year old female CC: Moo Shankar CRNA [facility] History Medical History: Reports:: Asthma, Congestive Heart Failure, Coronary Artery Disease, Depression, Hyperlipidemia, Hypertension, Kidney Stones, Myocardial Infarction Denies:: Cancer, Diabetes Mellitus Type 1, Diabetes Mellitus Type 2, Internal Pacemaker, MRSA, Seizures *Have you ever received a pneumonia vaccine?: No *Have you received a flu vaccine this season?: No Other Medical History: Reports: Arthritis, Hypothyroidism, Thyroid Disease. Denies: Blood Transfusion Reaction Laterality Cases: Right: Total Hip Replacement, Bilateral: Tonsillectomy, Other Other Surgeries: Yes: No Previous Surgery, Angioplasty, Cardiac Catheterization, Coronary Stent, Other. No: Pacemaker Amputation: No Fractures: No - *Social History Smoking Status: Never smoker Alcohol Intake: never Alcohol Intake Frequency:: other Substance Use Type: denies use *Occupational Status:: other Housing: house Household Members: none *Travel in the last 8 weeks: Inside the [place] - Psychiatric History Pschychiatric History:: Reports:: Depression Family Hx:: Cancer, Thyroid Disorder, Diabetes, Coronary Artery Disease, Heart Attack Meds Home Medications Medication Instructions Recorded Confirmed Type buprenorphine 8 mg-naloxone 2 mg 1 tab SUBLINGUAL BID tab 10/10/17 12/15/21 History sublingual tablet fluoxetine 40 mg capsule 80 mg PO DAILY cap 03/12/19 12/15/21 History donepezil 10 mg tablet 10 mg PO DAILY #30 tab 04/18/19 12/15/21 History medroxyprogesterone 2.5 mg tablet See Rx Instructions .ROUTE 12/28/20 12/15/21 Rx .COMPLEX #30 tab atorvastatin 10 mg tablet 10 mg PO DAILY #90 tab 02/01/21 12/15/21 Rx spironolactone 100 mg tablet See Rx Instructions .ROUTE 02/01/21 12/15/21 Rx .COMPLEX #90 tab hydroxyzine pamoate 25 mg capsule 25 mg PO cap 03/08/21 12/15/21 History estradiol 1 mg tablet See Rx Instructions .ROUTE 03/29/21 12/15/21 Rx .COMPLEX #90 tab ergocalciferol (vitamin D2) 1,250 50,000 unit PO DAILY #14 cap 05/10/21 12/15/21 Rx mcg (50,000 unit) capsule omeprazole 40 mg capsule,delayed 40 mg PO DAILY #90 each 05/27/21 12/15/21 Rx release levothyroxine 200 mcg tablet 200 mcg PO DAILY #90 tab 10/07/21 12/15/21 Rx cholecalciferol (vitamin D3) 25 See Rx Instructions .ROUTE 10/08/21 12/15/21 Rx mcg (1,000 unit) capsule .COMPLEX #90 cap
[2021-12-20 12:45] VITALS: BP 137/91; PULSE 87; RESP 18; TEMP 36.3; O2SAT 96; BMI 41.9
== END ==
PROVIDERS: Visit Provider Nurse Anesthetist, Certified Registered
DX: M54.16 Radiculopathy, lumbar region (principal)
CPT/HCPCS: 99202; G0463

== ENCOUNTER 2021-12-21 08:00 | Outpatient (RCR) | payer OTHER, SELFPAY ==
--- NOTE | 2021-09-30 09:49 | HMH.PTOPEV ---
PT Outpatient Evaluation Rehab PT Outpatient Evaluation Start: 09/30/21 09:03 Freq: Status: Active Protocol: Document 09/30/21 09:03 DONITA (Rec: 09/30/21 09:49 DONITA [id number]) Electronically Signed By Kaden Stern, PT 09/30/21 09:03 Outpatient Therapy Subjective History Subjective History Pt reports insidious onset left hip pain beginning ~ 2months ago. Pt reports localized posterio-lateral left hip pain, rian. w/ prolonged standing, and left sidelying. Pt reports cortizone injection in left hip ~1 month ago 'made it better'. Chief Complaint Pain,Stiff Symptom Type Ache,Sharp,Dull Symptoms Relieved By OTC Meds,Prescription Meds Symptoms Aggravated By Standing,Physical Activity, Walking Prior Functional Limitations Housework,Sleeping,Standing, Walking Current Functional Limitations Housework,Sleeping,Standing, Walking Symptom Description Constant but Variable Level of pain today (0-10) 5 Pain scale - at its best (0-10) 3 Pain scale - at its worst (0-10) 7 Hip/Knee Eval Gait Observation General Gait Pattern Observation Antalgic Gait,Wide Based Gait Assistive Device Assistive Devices None / NA Palpation Tenderness left Knee Palpation Overall Comment 3/4 grt. tro. Hip Palpation Findings Tenderness MMT Hip Flexion Strength Grade 5 Normal Hip Abduction Strength Grade 4 Good Hip Adduction Strength Grade 5 Normal Hip Extension Strength Grade 4 Good Hip External Rotation Strength Grade 4 Good Hip Internal Rotation Strength Grade 4 Good Knee Extension Strength Grade 5 Normal Knee Flexion Strength Grade 5 Normal ROM Hip Flexion w/Knee Extended Passive 0-78 Range of Motion (degrees) Hip External Rotation Passive Range of 0-56 Motion (degrees) Hip Internal Rotation Passive Range of 0-38 Motion (degrees) Hip ROM Limitations Pain Special Tests Hip Josie Test Positive Left Hip Piriformis Test Negative Left Sciatic Nerve Tension Test Negative Left Outpatient Therapy Assessment Impairments Problems/Impairmments Palpation Tenderness,Impaired Range of Motion,Impaired Strength,Impaired Walking, Impaired Standing,Impaired Household Care,Subjective C/O
[2021-09-30 10:38] LABS: Basophils # 0.1 K/mm3 (0-0.2); Basophils % 0.5 % (0.1-2.0); Eosinophils # 0.1 K/mm3 (0.0-0.4); Eosinophils % 0.8 % (0.1-12.0); Hematocrit 40.3 % (37.0-47.0); Lymphocytes # 1.5 K/mm3 (0.7-4.5); Lymphocytes % 16.4 % (10-50); Mean Corpuscular HGB Conc 32.3 g/dL (31.8-35.4); Mean Corpuscular Hemoglobin 27.1 pg (27.0-31.2); Mean Platelet Volume 7.6 fl (7.4-10.4); Monocytes # 0.4 K/mm3 (0.1-1.0); Monocytes % 4.7 % (1.7-9.3); Neutrophils # 7.3 K/mm3 (1.8-7.8); Neutrophils % 77.6 % (37.0-80.0); Platelet Count 376 K/mm3 (142-424); Red Cell Distribution Width 15.3 % (11.5-17.5); White Blood Count 9.4 K/mm3 (4.8-10.8)
[2021-09-30 11:29] LABS: Chloride 95 mmol/L (98-107)
[2021-09-30 11:30] LABS: Potassium 4.5 mmoL/L (3.5-5.1); Sodium 131 mmol/L (136-145)
[2021-09-30 11:32] LABS: Alanine Aminotransferase 18 U/L (12-78); Albumin Level 4.5 g/dl (3.5-5.0); Alkaline Phosphatase 102 U/L (38-126); Aspartate Amino Transferase 30 U/L (14-36); Bilirubin,Total 0.8 mg/dl (0.2-1.3); Blood Urea Nitrogen 26 mg/dl (7-17); Estimated Glomerular Filt Rate 47 ml/min (>60); GFR (African American) 57 ML/MIN (>60)
[2021-09-30 11:33] LABS: Albumin/Globulin Ratio 1.3 (1.1-1.8); Anion Gap 12.5 mEq/L (5-15); Calcium 8.8 mg/dl (8.4-10.2); Carbon Dioxide 28 mmol/L (22.0-30.0); Chol/HDL Ratio 2.6 (1-3.5); Cholesterol 165 mg/dl (140-200); Globulin 3.5 g/dL (1.3-3.2); Glucose 96 mg/dl (74-100); HDL Cholesterol 64 mg/dl (40-60); Triglycerides 78 mg/dl (30-150); VLDL Cholesterol 16 mg/dL (0-40)
[2021-09-30 11:44] LABS: Direct LDL Cholesterol 78.24 mg/dL (100-129)
[2021-09-30 11:56] LABS: 25-OH Vitamin D, Total 47.9 ng/mL (30-100)
--- NOTE | 2021-10-28 08:59 | HMH.RHREAS ---
Rehab Reassessment Rehab OP Re-assessment Start: 10/28/21 08:43 Freq: Status: Active Protocol: Document 10/28/21 08:44 DONITA (Rec: 10/28/21 08:58 [email or web address] [id number]) Electronically Signed By Kaden Stern, PT 10/28/21 08:44 Rehab Re-assessment Subjective Subjective Pt reports improved left hip pain 'whenever I can get into therapy, but it's hard for me to get here.' Pt reports 7 left hip this am before skilled P.T., and 3-4/10 left hip pain on VAS following treatment. Objective Objective Notes PROM: LEFT HIP FLX 0-91, ER 0- 72, IR 0-43 MMT: LEFT HIP FLX 4-4+/5, L HIP ABD 4/5, L HIP EXT 4+/5, L HIP ADD 4+/5, LEFT HIP IE,ER 4/5 TTP: LEFT HIP GRT TRO. 10/22 Assessment Progress Assessment Slower Than Expected Assessment Notes slight improvement in left hip /LE strength, and ROM Patient goals met STG'S 10/26 Goals Not Met STG'S 12/26, LTG'S 03/28 Plan Plan Pt to continue w/skilled P.T. to make further improvements in left hip ROM, flexibility, strength, and TTP to allow for optimal function Frequency of Therapy 1-2x/wk Duration of therapy 3-4wks Time and Billing Re-Eval Time 15 Re-Eval Billing Units 1 PHYSICIAN CERTIFICATION: I certify the specified therapy services for Lesia Doran are required, authorized, and reviewed every 30 days.
--- NOTE | 2021-11-23 08:53 | HMH.RHREAS ---
Rehab Reassessment Rehab OP Re-assessment Start: 10/28/21 08:43 Freq: Status: Active Protocol: Document 11/23/21 08:43 DONITA (Rec: 11/23/21 08:53 DONITA [id number]) Electronically Signed By Kaden Stern, PT 11/23/21 08:43 Rehab Re-assessment Subjective Subjective PT REPORTS 8/10 LEFT HIP PAIN THIS AM, 'I GUES THE WEATHER IS MAKING IT HURT A BIT WORSE THIS MORNING.' OVERALL PT REPORTS FEELING 50% BETTER RELATED TO LEFT HIP FUNCTION. Objective Objective Notes PROM: LEFT HIP FLX 0-108, ER 0 -75, IR 0-55 MMT: LEFT HIP FLX 4+/5, L HIP ABD 4/5, L HIP EXT 4+/5, L HIP ADD 4+/5, LEFT HIP IE,ER 4/5 TTP: LEFT HIP GRT TRO. 3/, R HIP RF MM 3/4 Assessment Progress Assessment Slower Than Expected Assessment Notes IMPROVED STRENGTH AND ROM, HOWEVER, PT STILL POSSESSES SIGNIFICANT TTP AND REPORTS HIGH PAIN LEVELS SUBJECTIVELY Patient goals met STG'S 12/26 LTG'S 08/28 Goals Not Met STG'S 10/26, LTG'S 02/25 Plan Plan Pt to continue w/skilled P.T. to make further improvements in left hip ROM, flexibility, strength, and TTP to allow for optimal function Frequency of Therapy 1-2X/WK Duration of therapy 3-4WKS Time and Billing Re-Eval Time 12 Re-Eval Billing Units 1 PHYSICIAN CERTIFICATION: I certify the specified therapy services for Lesia Doran are required, authorized, and reviewed every 30 days.
--- NOTE | 2021-12-21 08:41 | HMH.RHREAS ---
Rehab Reassessment Rehab OP Re-assessment Start: 10/28/21 08:43 Freq: Status: Active Protocol: Document 12/21/21 07:57 DONITA (Rec: 12/21/21 08:41 DONITA [id number]) Electronically Signed By Kaden Stern, PT 12/21/21 07:57 Rehab Re-assessment Subjective Subjective Pt reports 1/10 left hip pain on VAS this AM, and feels 98% better overall since I eval. Objective Objective Notes PROM: LEFT HIP FLX 0-115, ER 0 -84, IR 0-68 MMT: LEFT HIP FLX 4+5/5, L HIP ABD 4+/5, L HIP EXT 4+/5, L HIP ADD 4+/5, LEFT HIP IE,ER 4 +/5 TTP: LEFT HIP GRT TRO. 0-08/24, R HIP RF MM 0-08/24 Assessment Progress Assessment Progressing as Expected Assessment Notes significant improvements in TTP, ROM, AND STRENGTH Patient goals met STG'S 03/28 LTG'S 12/26 Goals Not Met LTG'S 10/26 (60 MIN GOALS) Plan Plan Pt to cont. w/skilled P.T. to make further improvements in functional endurance Frequency of Therapy 1-2x/wk Duration of therapy 1-2wks Time and Billing Re-Eval Time 13 Re-Eval Billing Units 1 PHYSICIAN CERTIFICATION: I certify the specified therapy services for Lesia Doran are required, authorized, and reviewed every 30 days.
== END 2021-12-21 08:05 | disposition home or self-care (01) ==
LOC: PT 08:00
PROVIDERS: PCP Physician Assistant; Visit Provider Orthopaedic Surgery
DX: M25.552 Pain in left hip (principal); M70.72 Other bursitis of hip, left hip
CPT/HCPCS: 80053; 80061; 82306; 84443; 85025; 97010; 97014; 97110; 97163; 97164; G0283

== ENCOUNTER → 2021-12-22 07:17 | Outpatient (CLI) | payer OTHER, SELFPAY ==
--- NOTE | 2021-12-22 07:24 | MR_ITS ---
FINAL REPORT CLINICAL HISTORY: LOW BACK PAIN FINDINGS: Multiplanar MR imaging of the lumbar spine was performed without contrast. On the sagittal T2-weighted images, there is disc degeneration seen at multiple levels. There is mild retrolisthesis of L5 on S1. There are mild endplate changes at L5-S1. There is no evidence of fracture. No bony mass is identified. The conus has an unremarkable appearance. No significant canal stenosis is identified. L1-2: No significant central canal stenosis or neuroforaminal narrowing. L2-3: No significant central canal stenosis or neuroforaminal narrowing. L3-4: No significant central canal stenosis or neuroforaminal narrowing. L4-5: An annular bulge is present. There is a small central disc protrusion. L5-S1: There is an annular disc bulge with facet arthropathy and vertebral osteophytes. There is moderate left neural foraminal narrowing. There is some spurring at the SI joints. There is partial lumbarization of S1. IMPRESSION: Multilevel degenerative disc disease and spondylosis. Small central disc protrusion at L4-L5. Moderate left neural foraminal narrowing at L5-S1. Reviewed, Interpreted and Dictated by Dillan Tracy III, MD Transcribed by Magy Reese Authenticated by Dillan Tracy III, MD on 12/22/2021 09:49:16 AM [facility]
== END ==
PROVIDERS: PCP Physician Assistant; Visit Provider Nurse Anesthetist, Certified Registered
DX: M54.50 Low back pain, unspecified (principal)
CPT/HCPCS: 72148; 76376

== ENCOUNTER → 2021-12-24 12:30 | Outpatient (CLI) | payer OTHER, SELFPAY ==
--- NOTE | 2021-12-24 | CA_ITS ---
FINAL REPORT TECHNIQUE: Real-time imaging was performed of the extracranial carotid arteries in transverse and longitudinal planes, with color duplex evaluation of blood flow velocity. Spectral analysis was performed. The cervical vertebral arteries were also examined. CLINICAL HISTORY: MYLA,HTN,HLD FINDINGS: NASCET technique is utilized for stenosis evaluation. Right carotid system (centimeters/second): CCA: 63 ICA: 58 Vertebral artery: Antegrade ICA/CCA ratio: 1.05 Mild plaque is identified at the bifurcation. Left carotid system (centimeters/second): CCA: 73 ICA: 67 Vertebral artery: Antegrade ICA/CCA ratio: 1.31 Mild plaque is identified at the bifurcation. IMPRESSION: Less than 50 % right ICA stenosis. Less than 50 % left ICA stenosis. Reviewed, Interpreted and Dictated by Eligio Underwood MD Transcribed by Emma Neves Authenticated by Eligio Underwood MD on 12/24/2021 04:03:02 PM [facility]
== END ==
PROVIDERS: PCP Physician Assistant; Visit Provider Nurse Practitioner Family
DX: I65.23 Occlusion and stenosis of bilateral carotid arteries (principal)
CPT/HCPCS: 93880

== ENCOUNTER → 2022-01-06 09:49 | Outpatient (POV) | payer OTHER, SELFPAY ==
--- NOTE | 2022-01-06 12:38 | HMH.PAINSOAP ---
[facility] Pain Management SOAP Note Subjective:: Patient is a pleasant 51-year-old female who presents today for follow-up. Patient is currently being treated for chronic low back pain that radiates to bilateral lower extremities. Patient was a patient of Dr. Lauro Mendez. She was getting Suboxone treatment from him but she had an inappropriate drug screen and was eventually discharged from the clinic. When we last saw this patient, we ordered it an updated MRI. MRI shows multilevel degenerative disc disease and spondylosis. Small central disc protrusion at L4-L5. Moderate left neural foraminal narrowing at L5-S1. She describes her pain as constant. Denies any precipitating factors. This is worse with any lumbar flexion extension or rotation. Rates pain today as 8 out of 10. Review of Systems: General: No recent weight changes, no fever, no sleep disturbances Respiratory: No cough, no shortness of air, no recurring pulmonary infections Cardiovascular/peripheral vascular: No chest pain, no palpitations, no edema, no shortness of breath Gastrointestinal: No new onset incontinence, normal bowel movements reported Genitourinary: No new onset incontinence Musculoskeletal: Low back pain Psychiatric: [Normal mood/affect] Neurological: [Denies weakness in extremities], [denies balance issues] Objective:: Physical Exam: General: Alert and oriented x3, no acute distress, pleasant and cooperative Lungs: Respirations even and unlabored, symmetrical chest expansion Eyes: PERRL Musculoskeletal: Flexion and extension of lumbar [spine] somewhat guarded secondary to pain, [antalgic gait noted], +Magana Neurological: Speech clear, no gross sensory deficit Assessment:: Degenerative disc disease lumbar spine with lumbar radiculopathy symptoms Facet arthropathy Lumbar spondylosis Plan:: FINAL REPORT CLINICAL HISTORY: LOW BACK PAIN FINDINGS: Multiplanar MR imaging of the lumbar spine was performed without contrast. On the sagittal T2-weighted images, there is disc degeneration seen at multiple levels. There is mild retrolisthesis of L5 on S1. There are mild endplate changes at L5-S1. There is no evidence of fracture. No bony mass is identified. The conus has an unremarkable appearance. No significant canal stenosis is identified. L1-2: No significant central canal stenosis or neuroforaminal narrowing. L2-3: No significant central canal stenosis or neuroforaminal narrowing. L3-4: No significant central canal stenosis or neuroforaminal narrowing. L4-5: An annular bulge is present. There is a small central disc protrusion. L5-S1: There is an annular disc bulge with facet arthropathy and vertebral osteophytes. There is moderate left neural foraminal narrowing. There is some spurring at the SI joints. There is partial lumbarization of S1. IMPRESSION: Multilevel degenerative disc disease and spondylosis. Small central disc protrusion at L4-L5. Moderate left neural foraminal narrowing at L5-S1. Reviewed, Interpreted and Dictated by Dillan Tracy III, MD Transcribed by Magy Reese Plan: Patient continues to have low back pain that radiates to bilateral lower extremities. Positive magana test. Tender to palpation of the lumbar region. Is worse with lumbar flexion, extension, and rotation. We will schedule the patient for diagnostic medial branch block bilaterally at L5-S1. Risks and benefits of the procedure have been explained to the patient. Patient would like to proceed with the procedure. Patient is not on any blood thinners. I will start the patient on a compounding cream and meloxicam 15 mg daily. Patient has been instructed to contact the clinic with any concerns before the next appointment. Dr. Gaitan has reviewed this note and agrees with this plan of care. This note was dictated using voice recognition software and make contain errors or omissions. [facility] History Medical History: Reports:: Asthma, Congestive Hear
== END ==
PROVIDERS: Visit Provider Student in an Organized Health Care Education/Training Program
DX: M51.16 Intervertebral disc disorders with radiculopathy, lumbar region (principal); M54.06 Panniculitis affecting regions of neck and back, lumbar region; M47.896 Other spondylosis, lumbar region
CPT/HCPCS: 99212; G0463

== ENCOUNTER → 2022-01-11 11:00 | Outpatient (CLI) | payer OTHER, SELFPAY ==
[2022-01-11 11:39] LABS: Basophils # 0.1 K/mm3 (0-0.2); Eosinophils # 0.1 K/mm3 (0.0-0.4); Eosinophils % 2.1 % (0.1-12.0); Hematocrit 34.1 % (37.0-47.0); Hemoglobin 11.2 g/dL (12.2-16.2); Lymphocytes # 1.7 K/mm3 (0.7-4.5); Lymphocytes % 29.8 % (10-50); Mean Corpuscular HGB Conc 32.9 g/dL (31.8-35.4); Mean Corpuscular Volume 85.1 fl (81-99); Mean Platelet Volume 8.1 fl (7.4-10.4); Monocytes # 0.3 K/mm3 (0.1-1.0); Monocytes % 5.8 % (1.7-9.3); Neutrophils # 3.5 K/mm3 (1.8-7.8); Neutrophils % 61.4 % (37.0-80.0); Platelet Count 314 K/mm3 (142-424); Red Blood Count 4.01 M/mm3 (4.20-5.40); White Blood Count 5.7 K/mm3 (4.8-10.8)
[2022-01-11 12:14] LABS: Chloride 94 mmol/L (98-107); Sodium 137 mmol/L (136-145)
[2022-01-11 12:17] LABS: Anion Gap 9.8 mEq/L (5-15); Blood Urea Nitrogen 14 mg/dl (7-17); Calcium 8.3 mg/dl (8.4-10.2); Carbon Dioxide 36 mmol/L (22.0-30.0); Estimated Glomerular Filt Rate 75 ml/min (>60); GFR (African American) 91 ML/MIN (>60); Glucose 110 mg/dl (74-100)
[2022-01-11 13:03] LABS: Potassium 2.8 mmoL/L (3.5-5.1)
== END ==
PROVIDERS: Visit Provider Surgery
DX: Z01.812 Encounter for preprocedural laboratory examination (principal); Z20.822 Contact with and (suspected) exposure to COVID-19; K80.20 Calculus of gallbladder without cholecystitis without obstruction
CPT/HCPCS: 36415; 80048; 85025; C9803; U0003; U0005

== ENCOUNTER 2022-01-18 12:01 | Emergency (ER) | payer OTHER, SELFPAY ==
[2022-01-18 12:10] VITALS: BP 132/74; PULSE 83; RESP 17; O2SAT 98; BMI 41.5
--- NOTE | 2022-01-18 12:12 | XR_ITS ---
FINAL REPORT CLINICAL HISTORY: fall. pain and swelling. FINDINGS: LEFT HAND: 3 views of the left hand were obtained. There is no acute fracture or dislocation. Visualized joint spaces demonstrate mild degenerative changes. Soft tissues are unremarkable. IMPRESSION: No acute bony abnormality. Reviewed, Interpreted and Dictated by Dillan Tracy III, MD Transcribed by Phil Mata Authenticated by Dillan Tracy III, MD on 01/18/2022 01:37:03 PM [facility]
--- NOTE | 2022-01-18 12:23 | XR_ITS ---
FINAL REPORT CLINICAL HISTORY: fall, pain and swelling FINDINGS: Three views of the left wrist were obtained. There is no acute fracture or dislocation. The joint spaces demonstrate mild degenerative changes. There is no soft tissue abnormality. IMPRESSION: No acute abnormality. Reviewed, Interpreted and Dictated by Dillan Tracy III, MD Transcribed by Phil Mata Authenticated by Dillan Tracy III, MD on 01/18/2022 01:37:02 PM [facility]
[2022-01-18 12:26] VITALS: BP 132/74; PULSE 83; RESP 17; TEMP 36.8; O2SAT 98; BMI 41.5
--- NOTE | 2022-01-18 12:33 | HMH.EDUTC ---
[facility] Disposition Clinical Impression: Fall Qualifiers: Encounter type: initial encounter Qualified Code(s): W19.XXXA - Unspecified fall, initial encounter Fracture of phalanx of left ring finger Qualifiers: Encounter type: initial encounter Fracture type: closed Phalanx: middle Fracture alignment: nondisplaced Qualified Code(s): S62.655A - Nondisplaced fracture of middle phalanx of left ring finger, initial encounter for closed fracture Disposition: Home, Self-Care Condition on Discharge: Good Instructions: DI for Finger Sprain Additional Instructions: Rest the extremity, apply ice for 15 minutes as tolerated three or four times per day, Elevate the extremity as tolerated while you are resting. Take tylenol for pain. Follow up with Dr. Villagran (orthopedics). Sometimes there can be fractures that don't show up well on the first set of x-rays. So, you should follow up if you continue to have symptoms. I put in a referral but you need to call his office and schedule an appointment. Wear the splint until you are seen by orthopedics or your symptoms are completely better. Follow up with your regular doctor. GO TO THE ER FOR ANY WORSENING SYMPTOMS Referrals: Janice Fitzpatrick PA [Primary Care Provider] - Mathieu Villagran MD [Staff Physician] - Time of Disposition: 14:07 Medical Decision Making - Medical Records Medical records reviewed: No: I reviewed the patient's medical records. - Wolfgang Inquiry Pt receiving controlled substance: No Vital Signs: 01/18/22 12:10 01/18/22 12:26 01/18/22 14:14 Temperature 98.3 F 98.3 F Temperature Source Oral Pulse Rate 83 Pulse Rate [Left Radial] 83 83 Respiratory Rate 17 17 17 Blood Pressure 132/74 Blood Pressure [Right Arm] 132/74 132/74 Blood Pressure Mean [Right Arm] 93 93 02 Sat by Pulse Oximetry 98 98 Oxygen Delivery Method Room Air - Radiology Data #1 Image(s): Hand Image Reviewed: Yes I reviewed the patient's radiology image, Yes I have reviewed radiologist's interpretation Preliminary Findings: Abnormal FINAL REPORT CLINICAL HISTORY: fall, cut ring off for repeat images COMPARISON: Earlier the same day FINDINGS: LEFT HAND: Three views of the left hand were obtained. There is an avulsion fracture at the proximal volar aspect of the 4th middle phalanx of uncertain age. There is a lucency at the proximal volar aspect of the 3rd middle phalanx. A fracture cannot be excluded. There are mild degenerative changes. IMPRESSION: Age indeterminate avulsion fracture of the 4th middle phalanx. Lucency of the 3rd middle phalanx, fracture cannot be excluded. Consider follow-up radiographs. Reviewed, Interpreted and Dictated by Dillan Tracy III, MD Transcribed by Phil Mata Authenticated by Dillan Tracy III, MD on 01/18/2022 02:32:[address] [facility] Decision Narrative: we were awaiting x-ray reads by the radiologist is the reason she was here so long Her left ring finger was swollen. She still had a ring on that finger. It could not be removed by sliding it off because of swelling. So, the ring was cut off and all parts of the ring were put in a ziplock bag and given to the patient. [facility] HPI - General Stated complaint: AO fall 01/17 lt hand injury Time Seen by Provider: 01/18/22 12:33 Source of Information: Patient Description of Symptoms (Recalled from Triage Doc. by RN): patient comes in with a swollen left hand. patient fell in the middle of the night. HEENT Symptoms (Recalled from RN notes): No Resp Symptoms (Recalled from RN notes): No Skin Symptoms (Recalled from RN notes): No MS Symptoms (Recalled from RN notes): Yes Functional Status (Recalled from RN notes): wnl - History of Present Illness Provider Complaint: She states that she fell last night and came down on her left hand. She bent her left ring finger backwards when she fell. Since then she has had pain and swelling of
--- NOTE | 2022-01-18 13:20 | XR_ITS ---
FINAL REPORT CLINICAL HISTORY: fall, cut ring off for repeat images COMPARISON: Earlier the same day FINDINGS: LEFT HAND: Three views of the left hand were obtained. There is an avulsion fracture at the proximal volar aspect of the 4th middle phalanx of uncertain age. There is a lucency at the proximal volar aspect of the 3rd middle phalanx. A fracture cannot be excluded. There are mild degenerative changes. IMPRESSION: Age indeterminate avulsion fracture of the 4th middle phalanx. Lucency of the 3rd middle phalanx, fracture cannot be excluded. Consider follow-up radiographs. Reviewed, Interpreted and Dictated by Dillan Tracy III, MD Transcribed by Phil Mata Authenticated by Dillan Tracy III, MD on 01/18/2022 02:32:04 PM [facility]
[2022-01-18 14:14] VITALS: BP 132/74; PULSE 83; RESP 17; TEMP 36.8
== END 2022-01-18 14:17 | disposition home or self-care (01) ==
PROVIDERS: Emergency Provider Nurse Practitioner Family; PCP Physician Assistant
DX: S62.655A Nondisplaced fracture of middle phalanx of left ring finger, initial encounter for closed fracture (principal); W19.XXXA Unspecified fall, initial encounter; Z79.890 Hormone replacement therapy; Z79.899 Other long term (current) drug therapy; Z88.1 Allergy status to other antibiotic agents
CPT/HCPCS: 73110; 73130; 99212; G0463

== ENCOUNTER → 2022-03-31 13:17 | Outpatient (CLI) | payer OTHER, SELFPAY ==
--- NOTE | 2022-03-31 13:18 | MM_ITS ---
PROCEDURE INFORMATION: Exam: MG Bilateral Diagnostic Breast Tomosynthesis Exam date and time: 03/31/2022 1:33 PM Age: 51 years old Clinical indication: 6 mth f/u RT breast, screening lt brreast TECHNIQUE: Imaging protocol: Bilateral Diagnostic tomosynthesis and 2D mammography including computer-aided detection (CAD) when performed. Unilateral or bilateral exam. COMPARISON: 1. MG MM DIG MAMM DX UNILAT RT CAD 09/30/2021 1:52 PM 2. MG MM DIG SCREENING MAMM BI W/CAD 03/30/2021 8:02 AM FINDINGS: MAMMOGRAPHY: The breast tissue is composed of scattered areas of fibroglandular density. There is no stellate mass, architectural distortion or suspicious microcalcifications in either breast to suggest malignancy. No focal right upper breast masses. No skin thickening or axillary adenopathy. IMPRESSION: No mammographic evidence of malignancy. Annual bilateral mammographic screening is recommended unless otherwise clinically indicated. ASSESSMENT: BI-RADS Category 1: Negative
== END ==
PROVIDERS: PCP Physician Assistant; Visit Provider Nurse Practitioner Obstetrics & Gynecology
DX: R92.8 Other abnormal and inconclusive findings on diagnostic imaging of breast (principal)
CPT/HCPCS: 77062; 77066; G0279

== ENCOUNTER → 2022-04-15 10:45 | Outpatient (CLI) | payer OTHER, SELFPAY ==
[2022-04-15 11:37] LABS: Basophils % 0.4 % (0.1-2.0); Eosinophils # 0.1 K/mm3 (0.0-0.4); Eosinophils % 1.4 % (0.1-12.0); Hematocrit 35.7 % (37.0-47.0); Hemoglobin 11.1 g/dL (12.2-16.2); Lymphocytes # 1.5 K/mm3 (0.7-4.5); Lymphocytes % 21.6 % (10-50); Mean Corpuscular Hemoglobin 28.1 pg (27.0-31.2); Mean Corpuscular Volume 90.8 fl (81-99); Mean Platelet Volume 7.8 fl (7.4-10.4); Monocytes # 0.4 K/mm3 (0.1-1.0); Monocytes % 5.8 % (1.7-9.3); Neutrophils # 4.9 K/mm3 (1.8-7.8); Neutrophils % 70.8 % (37.0-80.0); Platelet Count 394 K/mm3 (142-424); Red Blood Count 3.93 M/mm3 (4.20-5.40); Red Cell Distribution Width 15.3 % (11.5-17.5); White Blood Count 6.9 K/mm3 (4.8-10.8)
[2022-04-15 12:16] LABS: Alanine Aminotransferase 19 U/L (12-78); Albumin Level 3.6 g/dl (3.5-5.0); Alkaline Phosphatase 120 U/L (38-126); Anion Gap 9.9 mEq/L (5-15); Aspartate Amino Transferase 29 U/L (14-36); Bilirubin,Total 0.5 mg/dl (0.2-1.3); Blood Urea Nitrogen 10 mg/dl (7-17); Calcium 8.5 mg/dl (8.4-10.2); Carbon Dioxide 38 mmol/L (22.0-30.0); Chloride 92 mmol/L (98-107); Estimated Glomerular Filt Rate 88 ml/min (>60); GFR (African American) 106 ML/MIN (>60); Globulin 3.6 g/dL (1.3-3.2); Glucose 122 mg/dl (74-100); Sodium 137 mmol/L (136-145); Total Protein,Serum 7.2 g/dl (6.3-8.2)
[2022-04-15 12:29] LABS: Potassium 2.9 mmoL/L (3.5-5.1)
== END ==
PROVIDERS: PCP Physician Assistant; Visit Provider Surgery
DX: K80.20 Calculus of gallbladder without cholecystitis without obstruction (principal)
CPT/HCPCS: 36415; 80053; 85025

== ENCOUNTER → 2022-05-03 09:02 | Outpatient (CLI) | payer OTHER, SELFPAY ==
[2022-05-03 10:32] LABS: Chloride 94 mmol/L (98-107); Sodium 137 mmol/L (136-145)
[2022-05-03 10:33] LABS: Potassium 3.4 mmoL/L (3.5-5.1)
[2022-05-03 10:35] LABS: Alanine Aminotransferase 17 U/L (12-78); Alkaline Phosphatase 117 U/L (38-126); Anion Gap 16.4 mEq/L (5-15); Aspartate Amino Transferase 31 U/L (14-36); Bilirubin,Total 0.3 mg/dl (0.2-1.3); Blood Urea Nitrogen 16 mg/dl (7-17); Calcium 8.5 mg/dl (8.4-10.2); Carbon Dioxide 30 mmol/L (22.0-30.0); Estimated Glomerular Filt Rate 75 ml/min (>60); GFR (African American) 91 ML/MIN (>60); Glucose 168 mg/dl (74-100)
== END ==
PROVIDERS: PCP Physician Assistant; Visit Provider Surgery
DX: K80.20 Calculus of gallbladder without cholecystitis without obstruction (principal)
CPT/HCPCS: 36415; 80053

== ENCOUNTER → 2022-05-06 10:59 | Outpatient (CLI) | payer OTHER, SELFPAY ==
--- NOTE | 2022-05-06 11:02 | XR_ITS ---
FINAL REPORT CLINICAL HISTORY: left hand injury COMPARISON: January 18, 2022 FINDINGS: LEFT HAND: 3 views of the left hand were obtained. There is chronic deformity of the distal radius favored to represent chronic fracture although new since the prior exam. There is a subacute fracture of the proximal aspect of the 4th middle phalanx. There is a calcification adjacent to the 3rd PIP joint. A fracture in its region cannot be excluded. There is soft tissue swelling about the 3rd and 4th digits. There are mild and moderate degenerative changes. IMPRESSION: Subacute fracture of the 4th middle phalanx. Calcification adjacent to the 3rd PIP joint. Fracture in this region not excluded. Reviewed, Interpreted and Dictated by Dillan Tracy III, MD Transcribed by Phil Mata Authenticated and [facility]
== END ==
PROVIDERS: PCP Physician Assistant; Visit Provider Orthopaedic Surgery
DX: S62.605A Fracture of unspecified phalanx of left ring finger, initial encounter for closed fracture (principal)
CPT/HCPCS: 73130

== ENCOUNTER → 2022-05-10 08:24 | Outpatient (CLI) | payer OTHER, SELFPAY | PROVIDERS: PCP Physician Assistant; Visit Provider Surgery | DX: Z01.812 Encounter for preprocedural laboratory examination (principal); Z20.822 Contact with and (suspected) exposure to COVID-19; K80.20 Calculus of gallbladder without cholecystitis without obstruction | CPT/HCPCS: C9803; U0003; U0005 ==

== ENCOUNTER 2022-05-12 09:21 | Day surgery (SDC) | payer OTHER, SELFPAY ==
[2022-05-12] VITALS (12 sets, daily range): BP systolic 120–144; BP diastolic 51–72; PULSE 65–77; RESP 12–18; TEMP 36.5–43; O2SAT 94–100; BMI 43.4
--- NOTE | 2022-05-12 10:09 | P.PN_ITS ---
[facility] PFS Medical History (Updated 05/12/22 @ 09:47 by Colin Rajput RN) Abnormal EKG Anxiety Atypical angina CAD (coronary artery disease) Chest pain Claudication Daytime somnolence Depressed Diastolic dysfunction Dizziness Gastroesophageal reflux disease HHD (hypertensive heart disease) HLD (hyperlipidemia) Hypothyroidism Insomnia Neck Pain Preoperative clearance Radiculopathy affecting upper extremity Restless legs syndrome Unstable angina Vitamin D deficiency Surgical History (Updated 05/12/22 @ 09:49 by Colin Rajput RN) H/O lithotripsy History of hip replacement S/P tonsillectomy and adenoidectomy Stented coronary artery Stented coronary artery Family History (Updated 05/12/22 @ 09:49 by Colin Rajput RN) Other Family history of COPD (chronic obstructive pulmonary disease) Family history of cancer Family history of myocardial infarction Social History (Updated 05/12/22 @ 09:51 by Colin Rajput RN) Smoking Status: Never smoker second hand exposure: No alcohol intake: never substance use type: denies use current occupational status: employed and unemployed Travel in the last 8 weeks: None household members: none housing: house 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 cholecystectomy Consent for Planned Operative Procedure(s) Verified: Yes NPO Status Verified Time NPO: 00:00 Additional verifications Anesthesia Reactions: No Hx Blood Transfusions: No Blood Transfusion Reaction: No Airway Assessment C-Spine Mobility Assessed: Yes TMJ Mobility Assessed: Yes Dentition: Edentulous Neurological Assessment Level of Consciousness: Awake Hx Seizures: No Numbness or tingling in extremities: No Anesthesia Plan Anesthesia Risk discussed: Yes ASA Class: III Anesthesia Type: General
--- NOTE | 2022-05-12 11:41 | EXP.OP.NOTE ---
Date of procedure: 05/12/22 Pre-op Diagnosis:: Symptomatic cholelithiasis Post-op Diagnosis:: Chronic calculus cholecystitis Procedure performed:: Laparoscopic cholecystectomy Surgeon:: Christopher Thompson MD ASSOCIATE ARTISTIC DIRECTOR:: Prieto Ragland Anesthesia: GETA Estimated blood loss (mL): 25 Operative findings:: Severe pericholecystic fat stranding Gallbladder distention Infundibular thickening Dome-down approach utilized secondary to above findings Operative note:: After informed consent was obtained, the patient was taken to the operating room and placed in the supine position. General anesthesia was induced and the abdomen was prepped and draped in a sterile fashion. After infiltration with local anesthetic an infraumbilical incision was made. A Veress needle was placed in position. The abdomen was insufflated. A 5 mm optical trocar was placed in position. Under direct visualization, a 12 mm trocar was placed in the subxiphoid position and 2 additional 5 mm trocars were placed in the right upper quadrant. The gallbladder was elevated up and over the liver margin. Severe pericholecystic fat stranding was noted. Careful dissection was utilized to free adhered stomach, small bowel, and colon from the gallbladder margin. The gallbladder was distended and fairly severe infundibular thickening was also noted. Secondary to these findings the decision was made to utilize a dome-down approach . A window was made at the infundibular margin between the gallbladder and the liver. Harmonic gayle were utilized to dissect the gallbladder away from the liver margin. Endoloops (x2) were then used to control the infundibulum. Transection above the site was completed with harmonic gayle. The gallbladder was placed in a retrieval bag and removed through the subxiphoid trocar site. The right upper quadrant was thoroughly irrigated. No active bleeding or bile leak was noted. Fascia at the subxiphoid trocar site was reapproximated utilizing the NeoClose device. The remaining trocars were removed. All wounds were irrigated and skin was closed with 4-0 Monocryl in a subcuticular fashion. Steri-Strips were applied. The patient's anesthetic agents were reversed and extubation was completed prior to transfer to recovery in stable condition. Condition: stable Disposition: PACU Specimens:: Gallbladder and contents Complications:: No immediate
--- NOTE | 2022-05-12 11:45 | EXP.ANES.I ---
[facility] Anesthesia Record Part I Anesthesia Record I Intake, IV Amount: 1,500 Estimated blood loss (mL): 0 Urine output (mL): 0 Blood Pressure: 144/67 SaO2: 94 Pulse Rate: 77 Respiratory Rate: 12 Temperature: 99 F Patient is:: Awake and Stable Stable to PACU at:: 11:45
--- NOTE | 2022-05-12 12:20 | SUR.PHASEI ---
1212 called and gave detailed report to Cyndi Bob RN 1215 transported to post op via stretcher. vital signs stable. rates pain at a 4 but is okay with it and okay to go to next phase. left in stable condition with Cyndi Bob RN at bedside.
--- NOTE | 2022-05-16 07:22 | P.PNANES_ITS ---
[facility] [place] Anesthesia Record Part II Anesthesia Record Part II Discharge Time: 12:15 Destination: Surgical Day Care (OP Surgery) PACU nurse assessment reviewed?: Yes Patient Condition:: Good Anesthesia Complications:: None Swallowing reflex intact?: Yes Cyanosis?: No Blood Pressure: 124/71 Pulse Rate: 69 Temperature: 97.7 F Mental Status: Alert & Oriented Pain level:: 4 Nausea and/or vomitting:: None Intake, IV Amount: 0
[2022-05-16 07:23] VITALS: BP 124/71; PULSE 69; TEMP 36.5
== END 2022-05-12 12:46 | disposition home or self-care (01) ==
PROVIDERS: PCP Physician Assistant; Visit Provider Surgery
PROC: 0FT44ZZ Resection of Gallbladder, Percutaneous Endoscopic Approach (ICD-10-PCS; CPT 47562; principal; 2022-05-12 12:00)
DX: K80.10 Calculus of gallbladder with chronic cholecystitis without obstruction (principal); Z79.899 Other long term (current) drug therapy
CPT/HCPCS: 47562; 96374; J2405

== ENCOUNTER 2022-06-09 08:00 | Outpatient (RCR) | payer OTHER, SELFPAY ==
--- NOTE | 2022-05-24 08:30 | HMH.OTOPEV ---
OT Inpatient Evaluation Rehab OT Outpatient Eval Start: 05/24/22 08:18 Freq: Status: Active Protocol: Document 05/24/22 08:18 RACHEL (Rec: 05/24/22 08:29 RACHEL [id number]) E-signed By Xiang Horton, OT Outpatient Therapy Subjective History Subjective History Pt is a 51 year old female who reports to therapy for initial evaluation to left ring finger. Pt reports in Dec, 2021 pt slipped and fell on a rug, extending her hand out to catch herself. This fall resulted in a Left 4th middle phalanx fx. At this time she presents with decreased motion in left ring finger at all joints, but most affected is PIP. Pt is right hand dominant. 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 Therapist will continue to see patient in order to address all deficits of L ring finger. 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
== END 2022-06-09 09:00 | disposition home or self-care (01) ==
LOC: OT 08:00
PROVIDERS: PCP Physician Assistant; Visit Provider Orthopaedic Surgery
DX: S62.605D Fracture of unspecified phalanx of left ring finger, subsequent encounter for fracture with routine healing (principal)
CPT/HCPCS: 97010; 97035; 97110; 97140; 97166

== ENCOUNTER → 2022-08-16 13:08 | Outpatient (CLI) | payer OTHER, SELFPAY ==
--- NOTE | 2022-08-16 13:11 | US_ITS ---
FINAL REPORT CLINICAL HISTORY: post menopausal bleeding FINDINGS: Transvaginal sonographic images of the pelvis were obtained. The uterus measures 7.9 x 4.4 x 4.0 cm. The endometrium measures 7 mm, which is abnormally thickened in a postmenopausal patient. There is a 1.1 cm presumed uterine fibroid. The right ovary measures 1.7 cm in length and left ovary measures 1.5 cm in length. Normal blood flow seen to the ovaries. The ovaries are not well visualized, no masses are identified. There is no evidence of free fluid. IMPRESSION: Abnormally thickened endometrium. Small uterine fibroid. Reviewed, Interpreted and Dictated by Dillan Tracy III, MD Transcribed by Magy Reese Authenticated and [facility]
== END ==
PROVIDERS: PCP Physician Assistant; Visit Provider Nurse Practitioner Obstetrics & Gynecology
DX: N95.0 Postmenopausal bleeding (principal)
CPT/HCPCS: 76830

== ENCOUNTER → 2022-08-19 11:09 | Outpatient (POV) | payer OTHER, SELFPAY | PROVIDERS: Visit Provider Internal Medicine Nephrology | DX: Z00.00 Encounter for general adult medical examination without abnormal findings (principal) ==

== ENCOUNTER → 2023-02-01 09:35 | Outpatient (CLI) | payer OTHER, SELFPAY ==
[2023-02-01 10:18] LABS: Basophils % 0.7 % (0.1-2.0); Eosinophils # 0.3 K/mm3 (0.0-0.4); Eosinophils % 5.9 % (0.1-12.0); Hematocrit 34.7 % (37.0-47.0); Hemoglobin 10.9 g/dL (12.2-16.2); Lymphocytes # 1.6 K/mm3 (0.7-4.5); Lymphocytes % 32.4 % (10-50); Mean Corpuscular HGB Conc 31.5 g/dL (31.8-35.4); Mean Corpuscular Hemoglobin 29.4 pg (27.0-31.2); Mean Corpuscular Volume 93.6 fl (81-99); Mean Platelet Volume 7.6 fl (7.4-10.4); Monocytes # 0.3 K/mm3 (0.1-1.0); Monocytes % 6.2 % (1.7-9.3); Neutrophils # 2.6 K/mm3 (1.8-7.8); Neutrophils % 54.9 % (37.0-80.0); Platelet Count 330 K/mm3 (142-424); Red Blood Count 3.71 M/mm3 (4.20-5.40); Red Cell Distribution Width 13.9 % (11.5-17.5); White Blood Count 4.8 K/mm3 (4.8-10.8)
[2023-02-01 10:22] LABS: Alanine Aminotransferase 29 U/L (12-78); Albumin Level 3.9 g/dl (3.5-5.0); Albumin/Globulin Ratio 1.2 (1.1-1.8); Alkaline Phosphatase 121 U/L (38-126); Anion Gap 14.2 mEq/L (5-15); Aspartate Amino Transferase 56 U/L (14-36); Bilirubin,Total 0.3 mg/dl (0.2-1.3); Blood Urea Nitrogen 19 mg/dl (7-17); Calcium 8.2 mg/dl (8.4-10.2); Carbon Dioxide 34 mmol/L (22.0-30.0); Chloride 94 mmol/L (98-107); Cholesterol 191 mg/dl (140-200); Estimated Glomerular Filt Rate 87 ml/min (>60); GFR (African American) 106 ML/MIN (>60); Globulin 3.2 g/dL (1.3-3.2); Glucose 128 mg/dl (74-100); HDL Cholesterol 97 mg/dl (40-60); Potassium 3.2 mmoL/L (3.5-5.1); Sodium 139 mmol/L (136-145); Total Protein,Serum 7.1 g/dl (6.3-8.2); Triglycerides 140 mg/dl (30-150); VLDL Cholesterol 28 mg/dL (0-40)
[2023-02-01 10:34] LABS: Direct LDL Cholesterol 85.16 mg/dL (100-129)
[2023-02-01 10:38] LABS: 25-OH Vitamin D, Total 39.4 ng/mL (30-100)
[2023-02-01 10:40] LABS: Free T4 (Free Thyroxine) 1.79 ng/dl (0.78-2.19)
[2023-02-01 10:55] LABS: Thyroid Stimulating Hormone 2.51 uIU/mL (0.465-4.68)
== END ==
PROVIDERS: PCP Physician Assistant; Visit Provider Physician Assistant
DX: R53.83 Other fatigue (principal); K59.00 Constipation, unspecified; E03.9 Hypothyroidism, unspecified; E66.9 Obesity, unspecified; Z68.41 Body mass index [BMI] 40.0-44.9, adult; Z79.899 Other long term (current) drug therapy
CPT/HCPCS: 36415; 80053; 80061; 82306; 84439; 84443; 85025

== ENCOUNTER → 2023-02-17 12:50 | Outpatient (CLI) | payer OTHER, SELFPAY | PROVIDERS: PCP Physician Assistant; Visit Provider Physician Assistant | DX: R06.00 Dyspnea, unspecified (principal) | CPT/HCPCS: 93306 ==

== ENCOUNTER → 2023-04-03 13:34 | Outpatient (CLI) | payer OTHER, SELFPAY ==
[2023-04-03 14:34] LABS: Basophils % 0.4 % (0.1-2.0); Eosinophils # 0.1 K/mm3 (0.0-0.4); Eosinophils % 2.5 % (0.1-12.0); Hematocrit 32.5 % (37.0-47.0); Hemoglobin 10.4 g/dL (12.2-16.2); Lymphocytes # 1.3 K/mm3 (0.7-4.5); Mean Corpuscular HGB Conc 32.1 g/dL (31.8-35.4); Mean Corpuscular Hemoglobin 30.2 pg (27.0-31.2); Mean Corpuscular Volume 94.1 fl (81-99); Mean Platelet Volume 8.2 fl (7.4-10.4); Monocytes # 0.4 K/mm3 (0.1-1.0); Monocytes % 6.5 % (1.7-9.3); Neutrophils # 3.9 K/mm3 (1.8-7.8); Neutrophils % 67.6 % (37.0-80.0); Platelet Count 263 K/mm3 (142-424); Red Blood Count 3.45 M/mm3 (4.20-5.40); White Blood Count 5.8 K/mm3 (4.8-10.8)
[2023-04-03 14:56] LABS: Alanine Aminotransferase 21 U/L (12-78); Albumin Level 3.5 g/dl (3.5-5.0); Alkaline Phosphatase 82 U/L (38-126); Anion Gap 14.4 mEq/L (5-15); Aspartate Amino Transferase 31 U/L (14-36); Bilirubin,Indirect 0.2 mg/dL (0.0-0.9); Bilirubin,Total 0.2 mg/dl (0.2-1.3); Bilirubin,Unconjugated 0.3 mg/dL (0.0-1.1); Blood Urea Nitrogen 27 mg/dl (7-17); Calcium 8.1 mg/dl (8.4-10.2); Carbon Dioxide 25 mmol/L (22.0-30.0); Chloride 101 mmol/L (98-107); Chol/HDL Ratio 2.2 (1-3.5); Cholesterol 155 mg/dl (140-200); Estimated Glomerular Filt Rate 47 ml/min (>60); GFR (African American) 57 ML/MIN (>60); Glucose 112 mg/dl (74-100); HDL Cholesterol 72 mg/dl (40-60); Magnesium 1.4 mg/dl (1.6-2.3); Potassium 3.4 mmoL/L (3.5-5.1); Sodium 137 mmol/L (136-145); Total Protein,Serum 6.7 g/dl (6.3-8.2); Triglycerides 123 mg/dl (30-150); VLDL Cholesterol 25 mg/dL (0-40)
[2023-04-03 15:07] LABS: Direct LDL Cholesterol 66.82 mg/dL (100-129)
[2023-04-03 15:13] LABS: Free T4 (Free Thyroxine) 1.46 ng/dl (0.78-2.19)
[2023-04-03 15:26] LABS: Thyroid Stimulating Hormone 1.58 uIU/mL (0.465-4.68)
== END ==
PROVIDERS: PCP Physician Assistant; Visit Provider Nurse Practitioner
DX: R06.00 Dyspnea, unspecified (principal); I25.10 Atherosclerotic heart disease of native coronary artery without angina pectoris; I11.9 Hypertensive heart disease without heart failure; E78.5 Hyperlipidemia, unspecified; E66.01 Morbid (severe) obesity due to excess calories; Z68.41 Body mass index [BMI] 40.0-44.9, adult; Z95.5 Presence of coronary angioplasty implant and graft
CPT/HCPCS: 36415; 80048; 80061; 80076; 83735; 84439; 84443; 85025

== ENCOUNTER → 2023-04-06 07:22 | Outpatient (CLI) | payer OTHER, SELFPAY ==
--- NOTE | 2023-04-06 07:22 | NM_ITS ---
APPROVED REPORT Exam: Nuclear Stress Test Indication: chest pain..soa..fatigue Patient Location: Outpatient Stress Tech: Hazel Barriga [place] Tech:GREGG Centeno RT(R)(N) Ht: 5 ft 5 in Wt: 259 lbs Bra Size: 40c HR: 68 bpm BP: 113/35 mmHg BSA: 2.21 m2 Rhythm: ectopic atrial rhythm TID: 1.02 BMI: 43.0 History: chest pain..Abdomen soa..fatigue Procedure: Patient received 0.4 mg of intravenous Lexiscan, resting heart rate 68 bpm, resting blood pressure 113/35 mmHg, with Lexiscan maximum heart rate achieved was 81 bpm which is 85 % of the maximum predicted heart rate and blood pressure was 120/61 mmHg. The patient was not able to lay on her abdomen for prone images. Cardiac Stress and Resting SPECT Images: Cardiac Stress and Resting SPECT images were obtained using technetium 99m Myoview 30.6 mCi stress and 10.85 mCi at rest. This is a technically difficult study. This is a technically difficult the patient could not lie on her abdomen. Therefore prone stress imaging could not be performed. There is also significant soft tissue overlap of the cardiac borders of the images. This may affect the diagnostic interpretation of the study findings. Resting and stress imaging in supine position demonstrate a large sized, severe, fixed perfusion defect in the distal anterior and apical LV coley. While this may represent possible soft tissue attenuation, a true perfusion defect cannot be ruled out due to technically difficult imaging. Gated imaging demonstrates normal global and regional LV systolic function. LVEF is calculated at 61%. Conclusion: This is a technically difficult study. The patient could not lie on her abdomen. Therefore prone stress imaging could not be performed. There is also significant soft tissue overlap of the cardiac borders of the images. This may affect the diagnostic interpretation of the study findings. Resting and stress imaging in supine position demonstrate a large sized, severe, fixed perfusion defect in the distal anterior and apical LV coley. No evidence of reversible ischemia. While this may represent possible soft tissue attenuation, a true perfusion defect cannot be ruled out due to technically difficult imaging. Gated imaging demonstrates normal global and regional LV systolic function. LVEF is calculated at 61%. Electronically signed by : Mandi Lam, 04/09/2023 17:53:55
--- NOTE | 2023-04-06 10:30 | CA_ITS ---
APPROVED REPORT Exam: Pharmacologic Technologist: Hazel Bradford, Ht: 5 ft 5 in Wt: 266 lbs BSA: 2.23 m2 HR: 66 bpm BP: 113/35 mmHg Rhythm: Ectopic atrial rhythm Medical History Medications: Omeprazole,,,,, Levothyroxine,,,,, Trazadone,,,,, Losartan,,,,, Atorvastatin,,,,, Estradiol,,,,, Vit D3,,,,, Fluoxetine,,,,, SpirOnolactone,,,,, TorSEMIDE,,,,, MeDroxyprogesterone,,,,, Vit D2,,,,, Stress Test Details Test: LEXISCAN Reason for pharmacologic stress test: physical limitation. HR Resting HR: 68 bpm Max Heart Rate (APMHR): 166 bpm Max HR Achieved: 81 bpm Target HR (85% APMHR): 141 bpm % of APMHR: 49 Recovery HR: 69 bpm BP Resting BP: 113.0/35.0 mmHg Max BP: 120.0/61.0 mmHg Recovery BP: 120.0/61.0 mmHg ECG Resting ECG: Ectopic atrial rhythm, delayed R/S progression Stress ECG: No change Arrhythmia: None Clinical Exercise duration: 04:00 min Highest Stage Achieved: Stress ECG Conclusion Symptoms: Flushed, mild GOMEZ. No CP. Arrhythmias/Ectopy: None. ST-T Changes: No significant ST changes. Conclusion: Unremarkable Lexiscan stress. Myoview images reported separately Test Summary REST . . . . . . . Resting REST 11:10 . . 68 . 113/ 35 . . Stage 1 01:00 . . 78 . . . . Stage 2 01:00 . . 74 . 104/ 65 . . Stage 3 01:00 . . 75 . 112/ 59 . . Stage 4 01:00 . . 71 . 106/ 60 . Stop exercise at 04:00 RECOVERY 01:00 . . 77 . . . . RECOVERY 02:00 . . 69 . 115/ 62 . . RECOVERY 03:00 . . 70 . 120/ 61 . . RECOVERY 03:22 . . 70 . 120/ 61 . . Electronically signed by : Mandi Lam, 04/09/2023 17:44:42
== END ==
LOC: RAD 07:22
PROVIDERS: PCP Physician Assistant; Visit Provider Nurse Practitioner
DX: R06.00 Dyspnea, unspecified (principal); I25.10 Atherosclerotic heart disease of native coronary artery without angina pectoris; I11.9 Hypertensive heart disease without heart failure; E78.5 Hyperlipidemia, unspecified; E66.01 Morbid (severe) obesity due to excess calories; Z95.5 Presence of coronary angioplasty implant and graft; Z68.41 Body mass index [BMI] 40.0-44.9, adult
CPT/HCPCS: 78452; 93017; A9502; J2785

== ENCOUNTER 2023-04-25 07:43 | Day surgery (SDC) | payer OTHER, SELFPAY ==
[2023-04-25] VITALS (12 sets, daily range): BP systolic 94–140; BP diastolic 49–115; PULSE 63–75; RESP 18; O2SAT 91–100; BMI 42.9
--- NOTE | 2023-04-25 07:12 | IR_ITS ---
APPROVED REPORT Patient Location: Outpatient PROCEDURES Selective coronary angiogram INDICATION Angina pectoris, Abnormal Myoview Informed consent was obtained prior to the procedure. COMPLICATIONS None Estimated Blood Loss: Less than 10 mls TECHNIQUE One percent lidocaine used to anesthetize the right anterior aspect of the wrist. The right radial artery was accessed via the Seldinger technique. A 6 Jordanian sheath was placed in the right radial artery. 2.5 mg of Verapamil, 800 mcg of nitroglycerin, 1mg Lidocaine and 5000 U Heparin were given through the arterial sheath. The papa catheter was also used to perform left heart catheterization, left ventriculogram and selective coronary angiogram. At the end of the procedure the sheath was removed good hemostasis was achieved using Traclet band, patient was transferred to the postop holding area in stable condition. ANGIOGRAPHIC RESULTS The left main artery Normal The left anterior descending artery Proximal 20 to 30% stenosis The circumflex artery Mild mid vessel 10 to 20% luminal irregularities The right coronary artery Dominant normal The JEFFERY ventriculogram reveals Not performed The left ventricular end-diastolic pressure Not measured IMPRESSION Mild nonflow limiting coronary artery disease PLAN 1. Medical management 2. Consider empiric treatment for diastolic dysfunction Electronically signed by : Carlos Carballo MD 04/25/2023 10:40:39
[2023-04-25 08:23] LABS: Basophils % 0.5 % (0.1-2.0); Eosinophils # 0.3 K/mm3 (0.0-0.4); Hematocrit 33.9 % (37.0-47.0); Hemoglobin 11.3 g/dL (12.2-16.2); Mean Corpuscular HGB Conc 33.3 g/dL (31.8-35.4); Mean Corpuscular Hemoglobin 30.6 pg (27.0-31.2); Mean Platelet Volume 8.1 fl (7.4-10.4); Monocytes # 0.5 K/mm3 (0.1-1.0); Monocytes % 7.2 % (1.7-9.3); Neutrophils # 3.5 K/mm3 (1.8-7.8); Neutrophils % 55.3 % (37.0-80.0); Platelet Count 330 K/mm3 (142-424); Red Blood Count 3.69 M/mm3 (4.20-5.40); White Blood Count 6.3 K/mm3 (4.8-10.8)
[2023-04-25 08:31] LABS: Chloride 100 mmol/L (98-107); Sodium 138 mmol/L (136-145)
[2023-04-25 08:32] LABS: Potassium 3.7 mmoL/L (3.5-5.1)
[2023-04-25 08:34] LABS: Blood Urea Nitrogen 23 mg/dl (7-17); Creatinine Clearance Estimated 64 mL/min (50-200); Estimated Glomerular Filt Rate 65 ml/min (>60); GFR (African American) 79 ML/MIN (>60)
[2023-04-25 08:35] LABS: Anion Gap 12.7 mEq/L (5-15); Calcium 9.6 mg/dl (8.4-10.2); Carbon Dioxide 29 mmol/L (22.0-30.0); Glucose 108 mg/dl (74-100)
--- NOTE | 2023-04-25 12:16 | SUR.PHASEII ---
pt sitting up in bed eating lunch.
== END 2023-04-25 14:01 | disposition home or self-care (01) ==
PROVIDERS: PCP Physician Assistant; Visit Provider Internal Medicine
DX: I25.118 Atherosclerotic heart disease of native coronary artery with other forms of angina pectoris (principal); E78.5 Hyperlipidemia, unspecified; I11.9 Hypertensive heart disease without heart failure; Z95.5 Presence of coronary angioplasty implant and graft; R94.39 Abnormal result of other cardiovascular function study; Z79.899 Other long term (current) drug therapy
CPT/HCPCS: 80048; 85025; 93454; 99152; C1725; C1760; C1769; J1644; Q9967

== ENCOUNTER 2023-06-09 14:54 | Emergency (ER) | payer OTHER, SELFPAY ==
[2023-06-09 14:55] VITALS: BP 111/70; PULSE 83; RESP 20; TEMP 36.4; O2SAT 96; BMI 43.5
--- NOTE | 2023-06-09 15:05 | ECG_ITS ---
APPROVED REPORT Exam: Resting ECG HR:86 bpm ECG Measurements Heart Rate 86 AXES UT 152 P -42 QRSd 106 QRS -42 QT 319 T 57 QTc 362 Conclusion SINUS RHYTHM WITH FREQUENT VENTRICULAR PREMATURE COMPLEXES LEFT AXIS DEVIATION [QRS AXIS < -30] NONSPECIFIC T-WAVE ABNORMALITY ABNORMAL ECG UNCONFIRMED REPORT Electronically signed by : Yared Schwartz MD 06/10/2023 10:38:03
[2023-06-09 15:13] VITALS: PULSE 83
--- NOTE | 2023-06-09 15:20 | XR_ITS ---
FINAL REPORT CLINICAL HISTORY: soa, SMOKER COMPARISON: None FINDINGS: Two views of the chest were obtained. The heart size and pulmonary vascularity are within normal limits. The mediastinum is normal. No acute pulmonary abnormality is identified. There is no pneumothorax. The bony thorax is intact. A moderate-sized hiatal hernia is identified. IMPRESSION: No active cardiopulmonary disease. Moderate sized hiatal hernia. Reviewed, Interpreted and Dictated by Dillan Tracy III, MD Transcribed by Nessa Verdugo Authenticated and [facility]
[2023-06-09 15:30] VITALS: BP 119/54; PULSE 78; O2SAT 96
[2023-06-09 15:42] LABS: Basophils % 0.6 % (0.1-2.0); Eosinophils # 0.2 K/mm3 (0.0-0.4); Eosinophils % 3.3 % (0.1-12.0); Hematocrit 32.6 % (37.0-47.0); Hemoglobin 11.2 g/dL (12.2-16.2); Lymphocytes # 1.7 K/mm3 (0.7-4.5); Lymphocytes % 27.6 % (10-50); Mean Corpuscular HGB Conc 34.2 g/dL (31.8-35.4); Mean Corpuscular Hemoglobin 31.2 pg (27.0-31.2); Mean Corpuscular Volume 91.3 fl (81-99); Mean Platelet Volume 7.6 fl (7.4-10.4); Monocytes # 0.4 K/mm3 (0.1-1.0); Monocytes % 6.1 % (1.7-9.3); Neutrophils # 3.9 K/mm3 (1.8-7.8); Neutrophils % 62.4 % (37.0-80.0); Platelet Count 284 K/mm3 (142-424); Red Blood Count 3.57 M/mm3 (4.20-5.40); Red Cell Distribution Width 14.3 % (11.5-17.5); White Blood Count 6.3 K/mm3 (4.8-10.8)
--- NOTE | 2023-06-09 15:49 | HMH.EDGENADL ---
Discharge Plan Disposition Patient Disposition: Home, Self-Care Prescriptions Prescriptions: No Action hydroxyzine pamoate 25 mg capsule 25 mg PO . trazodone 50 mg tablet 50 mg PO DAILY PRN (Reason: .) losartan 25 mg tablet 25 mg PO buprenorphine-naloxone 8-2 mg tablet, sublingual 2 tab SL DAILY Hold Instructions: Resume on 05/15/22. Hold while taking [place] medroxyprogesterone 2.5 mg tablet See Rx Instructions .ROUTE .COMPLEX Qty: 30 11RF Dose Instruction: Take 1 tablet by mouth once daily Rx Instructions: Take 1 tablet by mouth once daily spironolactone 100 mg tablet See Rx Instructions .ROUTE .COMPLEX Qty: 90 3RF Dose Instruction: Take 1 tablet by mouth once daily Rx Instructions: Take 1 tablet by mouth once daily estradiol 2 mg tablet See Rx Instructions .ROUTE .COMPLEX Qty: 90 3RF Dose Instruction: Take 1 tablet by mouth once daily Rx Instructions: Take 1 tablet by mouth once daily ergocalciferol (vitamin D2) 1,250 mcg (50,000 unit) capsule 50,000 unit PO QWEEK 90 Days Qty: 14 3RF levothyroxine 200 mcg tablet See Rx Instructions .ROUTE .COMPLEX Qty: 30 2RF Dose Instruction: TAKE 1 TABLET BY MOUTH ONCE DAILY (NEEDS APPOINTMENT AND LABS BEFORE ANY FURTHER REFILLS) Rx Instructions: TAKE 1 TABLET BY MOUTH ONCE DAILY omeprazole 40 mg capsule,delayed release(DR/EC) See Rx Instructions .ROUTE .COMPLEX Qty: 90 0RF Dose Instruction: Take 1 capsule by mouth once daily Rx Instructions: Take 1 capsule by mouth once daily torsemide 100 mg tablet See Rx Instructions .ROUTE .COMPLEX Qty: 90 1RF Dose Instruction: Take 1 tablet by mouth once daily Rx Instructions: Take 1 tablet by mouth once daily atorvastatin 10 mg tablet See Rx Instructions .ROUTE .COMPLEX Qty: 90 1RF Dose Instruction: TAKE 1 TABLET BY MOUTH ONCE DAILY FOR CHOLESTEROL Rx Instructions: TAKE 1 TABLET BY MOUTH ONCE DAILY FOR CHOLESTEROL fluoxetine 40 mg capsule See Rx Instructions .ROUTE .COMPLEX Qty: 90 0RF Dose Instruction: TAKE 2 CAPSULES BY MOUTH ONCE A DAY GENERIC FOR PROZAC Rx Instructions: TAKE 2 CAPSULES BY MOUTH ONCE A DAY GENERIC FOR PROZAC diclofenac sodium [Aleve (diclofenac)] 1 % gel 2 g topical QID Qty: 100 2RF Referrals Follow up/Referrals: Marko Norton MD [Primary Care Provider] - See instructions Activity Restrictions/Add. Instructions Additional Instructions/Restrictions: Call your family doctor to establish care for this visit to the emergency department and schedule follow-up within 48 hours to ensure improvement. If you have any worsening of your condition or any other concerning signs or symptoms, return to the emergency department or your primary care doctor for further evaluation. Talk to family doctor about repeating potassium and potassium replacement. Take Tylenol 1000 mg every 6 hours (4 times daily) and ibuprofen 400 mg every 6 hours (4 times daily) as needed with food and water to prevent GI upset and kidney damage. Clinical Impressions Clinical Impression: Right-sided chest wall pain Discharge ED Provider: Fiona Miranda General Adult HPI <Isaac Dugan MD - Last Filed: 06/09/23 19:20> General Chief complaint: Chest Pain Stated complaint: pain under right breast bone Time Seen by Provider: 06/09/23 14:58 Mode of Arrival: Ambulatory Source of Information: Patient Limitations: No Limitations Description of Symptoms (Recalled from ER Triage Doc. by RN): Pt was sen tby pcp office to get her right under breast pain evaluated, pt states it started 3 days ago and is stabbing and burning in nature, pt has hx of asthma and has noted worsening soa. History of Present Illness HPI narrative: 52-year-old female history of hypertension, hyperlipidemia, CAD status post stenting, CKD presenting with right breast pain. Patient states that 3
[2023-06-09 16:10] LABS: Troponin I < 0.01 ng/ml (0.00-0.034)
[2023-06-09 16:19] LABS: Chloride 97 mmol/L (98-107); Sodium 138 mmol/L (136-145)
[2023-06-09 16:22] LABS: Alanine Aminotransferase 20 U/L (12-78); Albumin Level 4.1 g/dl (3.5-5.0); Albumin/Globulin Ratio 1.1 (1.1-1.8); Alkaline Phosphatase 90 U/L (38-126); Aspartate Amino Transferase 33 U/L (14-36); Bilirubin,Total 0.3 mg/dl (0.2-1.3); Blood Urea Nitrogen 19 mg/dl (7-17); Carbon Dioxide 34 mmol/L (22.0-30.0); Creatinine Clearance Estimated 75 mL/min (50-200); Estimated Glomerular Filt Rate 75 ml/min (>60); GFR (African American) 90 ML/MIN (>60); Globulin 3.7 g/dL (1.3-3.2); Total Protein,Serum 7.8 g/dl (6.3-8.2)
[2023-06-09 16:23] LABS: Calcium 7.6 mg/dl (8.4-10.2); Glucose 107 mg/dl (74-100); Potassium 2.5 mmoL/L (3.5-5.1)
[2023-06-09 16:24] LABS: Anion Gap 9.5 mEq/L (5-15)
--- NOTE | 2023-06-09 17:08 | PC.NURSE ---
rounded on pt. cup of ice provided. No other needs voiced.
--- NOTE | 2023-06-09 17:16 | CT_ITS ---
PROCEDURE INFORMATION: Exam: CTA Chest With Contrast Exam date and time: 06/09/2023 5:33 PM Age: 52 years old Clinical indication: Pain; Chest pressure; Additional info: Dimer, R chest pain TECHNIQUE: Imaging protocol: Computed tomographic angiography of the chest with contrast. Exam focused on the arteries. 3D rendering (Not supervised by radiologist): MIP and/or 3D reconstructed images were created by the technologist. Radiation optimization: All CT scans at this facility use at least one of these dose optimization techniques: automated exposure control; mA and/or kV adjustment per patient size (includes targeted exams where dose is matched to clinical indication); or iterative reconstruction. Contrast material: ISO 370; Contrast volume: 75 ml; Contrast route: INTRAVENOUS (IV); REPORTING DATA: Count of CT and Cardiac NM exams in prior 12 months: This patient has received 0 known CTs and 0 known cardiac nuclear medicine studies in the 12 months prior to the current study. COMPARISON: CT CHEST WO/W CON 08/10/2020 10:16 AM FINDINGS: Pulmonary arteries: No pulmonary artery embolism identified. Pulmonary artery evaluation is limited in the lung bases from motion. Main pulmonary artery is mildly dilated measuring 3.5 cm in diameter. Aorta: No aortic aneurysm. No aortic dissection or evidence of acute aortic abnormality. Ascending thoracic aorta measures 3.7 cm in diameter. Mid splenic artery aneurysm measuring 1.3 x 1.1 cm with peripheral calcification and peripherally calcified distal splenic artery aneurysm measuring 2 x 1.3 cm and subcentimeter more inferior distal splenic artery aneurysm. Splenic aneurysms do not appear significantly changed. LAD stent. Veins: Bilateral SVC's with very small bridging innominate vein. Left SVC drains to the coronary sinus. Lungs: No consolidation or mass. Mild scattered subsegmental atelectasis. Mild ground-glass opacity in the left lower lobe. Respiratory motion. Pleural spaces: No pneumothorax. No pleural effusion. Heart: Heart size is normal. No pericardial effusion. Lymph nodes: No adenopathy. Diaphragm: Small to moderate hiatal hernia. Bones/joints: No acute osseous abnormality or suspicious osseous lesion. Multilevel degenerative changes of the included spine are again demonstrated. Mild scoliosis. Remote left 3rd rib fracture redemonstrated and subacute versus remote left lateral 8th rib fracture. Soft tissues: Unremarkable. Other findings: No acute abnormality in the included upper abdomen. IMPRESSION: 1. No pulmonary artery embolism identified. Pulmonary artery evaluation is limited in the lung bases from motion. Main pulmonary artery is mildly dilated measuring 3.5 cm in diameter suggesting there may be pulmonary arterial hypertension. 2. Scattered subsegmental atelectasis in the lungs. Mild ground-glass opacity in the left lower lobe may be due to atelectasis versus infectious/inflammatory process. 3. No thoracic aortic aneurysm. Several splenic artery aneurysms as detailed above, do not appear significantly changed. 4. Anatomic variant bilateral SVC's with very small bridging innominate vein. Left SVC drains to the coronary sinus. 5. Small to moderate hiatal hernia. 6. Other chronic and incidental findings as detailed above.
--- NOTE | 2023-06-09 17:28 | PC.NURSE ---
Pt gone to RAD via wheelchair
--- NOTE | 2023-06-09 17:48 | PC.NURSE ---
Pt returned from RAD
--- NOTE | 2023-06-09 17:59 | PC.NURSE ---
Pt ambulatory to bathroom and back to bed. No other needs voiced.
[2023-06-09 18:00] VITALS: BP 116/61; PULSE 74; O2SAT 96
--- NOTE | 2023-06-09 19:07 | PC.NURSE ---
Rounded on patient, no concerns at this time.
[2023-06-09 19:10] LABS: Troponin I < 0.01 ng/ml (0.00-0.034)
[2023-06-09 19:25] VITALS: BP 117/54; PULSE 71; RESP 18; TEMP 36.7; O2SAT 99
--- NOTE | 2023-06-09 19:30 | PC.NURSE ---
Patient wanted to talk to and was upset and left without the doctor talking to patient. Patient was asked to stay so he could talk about results but patient refused to wait.
== END 2023-06-09 19:30 | disposition home or self-care (01) ==
PROVIDERS: Emergency Medicine; Emergency Provider Student in an Organized Health Care Education/Training Program; PCP Emergency Medicine
DX: R07.89 Other chest pain (principal); I49.3 Ventricular premature depolarization; E87.6 Hypokalemia; N18.31 Chronic kidney disease, stage 3a; I25.10 Atherosclerotic heart disease of native coronary artery without angina pectoris; I11.9 Hypertensive heart disease without heart failure; E78.5 Hyperlipidemia, unspecified; K21.9 Gastro-esophageal reflux disease without esophagitis; E55.9 Vitamin D deficiency, unspecified; E03.9 Hypothyroidism, unspecified; F41.9 Anxiety disorder, unspecified; F32.A Depression, unspecified; Z87.891 Personal history of nicotine dependence; Z95.5 Presence of coronary angioplasty implant and graft
CPT/HCPCS: 36415; 71046; 71275; 80053; 84484; 85025; 85378; 93005; 96365; 99285; J3475; Q9967

== ENCOUNTER 2023-12-03 07:50 | Emergency (ER) | payer OTHER, SELFPAY ==
[2023-12-03] VITALS (11 sets, daily range): BP systolic 111–153; BP diastolic 54–98; PULSE 75–104; RESP 15–24; TEMP 36.9–37.1; O2SAT 94–96; BMI 44.6
--- NOTE | 2023-12-03 08:03 | XR_ITS ---
PROCEDURE INFORMATION: Exam: XR Chest Exam date and time: 12/03/2023 8:05 AM Age: 53 years old Clinical indication: Dyspnea TECHNIQUE: Imaging protocol: Radiologic exam of the chest. Views: 1 view. COMPARISON: CT ANGIO CHEST PE PROTOCOL 06/09/2023 5:33 PM FINDINGS: Lungs: Unremarkable. No consolidation. Pleural spaces: Unremarkable. No pleural effusion. No pneumothorax. Heart/Mediastinum: Unremarkable. No cardiomegaly. Bones/joints: Unremarkable. IMPRESSION: No acute findings.
--- NOTE | 2023-12-03 08:07 | HMH.EDGENADL ---
Discharge Plan Disposition Patient Disposition: Home, Self-Care Prescriptions Prescriptions: New azithromycin 250 mg tablet 250 mg PO DAILY 4 Days Qty: 4 0RF Rx Instructions: start on day 2 of therapy (day after ED visit) benzonatate 100 mg capsule 100 mg PO TID PRN (Reason: cough) 5 Days Qty: 20 0RF albuterol sulfate 90 mcg/actuation HFA aerosol inhaler 4 inh inhalation Q4H PRN (Reason: shortness of breath or wheezing) Qty: 8.5 0RF Rx Instructions: 4 puffs every 4 hours for 48 hours then as needed for shortness of breath or wheezing following No Action hydroxyzine pamoate 25 mg capsule 25 mg PO . trazodone 50 mg tablet 50 mg PO DAILY PRN (Reason: .) losartan 25 mg tablet 25 mg PO DAILY buprenorphine-naloxone 8-2 mg tablet, sublingual 2 tab SL DAILY Hold Instructions: Resume on 05/15/22. Hold while taking [place] estradiol 2 mg tablet See Rx Instructions .ROUTE .COMPLEX Qty: 90 3RF Dose Instruction: Take 1 tablet by mouth once daily Rx Instructions: Take 1 tablet by mouth once daily ergocalciferol (vitamin D2) 1,250 mcg (50,000 unit) capsule 50,000 unit PO QWEEK 90 Days Qty: 14 3RF diclofenac sodium [Aleve (diclofenac)] 1 % gel 2 g topical QID Qty: 100 2RF medroxyprogesterone 2.5 mg tablet See Rx Instructions .ROUTE .COMPLEX Qty: 30 6RF Dose Instruction: TAKE ONE TABLET BY MOUTH ONCE A DAY Rx Instructions: TAKE ONE TABLET BY MOUTH ONCE A DAY omeprazole 40 mg capsule,delayed release(DR/EC) See Rx Instructions .ROUTE .COMPLEX Qty: 90 0RF Dose Instruction: TAKE ONE CAPSULE BY MOUTH ONCE A DAY Rx Instructions: TAKE ONE CAPSULE BY MOUTH ONCE A DAY levothyroxine 200 mcg tablet See Rx Instructions .ROUTE .COMPLEX Qty: 30 1RF Dose Instruction: TAKE ONE TABLET BY MOUTH ONCE A DAY Rx Instructions: TAKE ONE TABLET BY MOUTH ONCE A DAY atorvastatin 10 mg tablet See Rx Instructions .ROUTE .COMPLEX Qty: 90 3RF Dose Instruction: TAKE ONE TABLET BY MOUTH ONCE A DAY FOR CHOLESTEROL Rx Instructions: TAKE ONE TABLET BY MOUTH ONCE A DAY FOR CHOLESTEROL torsemide 100 mg tablet See Rx Instructions .ROUTE .COMPLEX Qty: 90 1RF Dose Instruction: Take 1 tablet by mouth once daily Rx Instructions: Take 1 tablet by mouth once daily fluoxetine 40 mg capsule See Rx Instructions .ROUTE .COMPLEX Qty: 90 0RF Dose Instruction: TAKE 2 CAPSULES BY MOUTH ONCE A DAY GENERIC FOR PROZAC Rx Instructions: TAKE 2 CAPSULES BY MOUTH ONCE A DAY GENERIC FOR PROZAC spironolactone 100 mg tablet See Rx Instructions .ROUTE .COMPLEX Qty: 90 1RF Dose Instruction: Take 1 tablet by mouth once daily Rx Instructions: Take 1 tablet by mouth once daily Referrals Follow up/Referrals: Janice Fitzpatrick PA [Primary Care Provider] - See instructions Carlos Kimbrough DO [Staff Physician] - See instructions Activity Restrictions/Add. Instructions Additional Instructions/Restrictions: Your labs have improved. You have evidence of a chronic cough and because of the duration of symptoms you have been treated with antibiotics and symptomatic medications. You did have a mild acute kidney injury and your potassium is low most likely secondary to your diuretic use. I recommend that you hold your diuretics and follow-up as soon as possible with your primary care doctor to discuss management of your medications as well as to make sure your kidney function and potassium have normalized. Clinical Impressions Clinical Impression: Asthma exacerbation, Bronchitis, Acute hypokalemia, DINORAH (acute kidney injury), Acute dehydration Discharge ED Provider: Fiona Miranda General Adult HPI General Chief complaint: Shortness of Breath/Dyspnea Stated complaint: soa, cough Time Seen by Provider: 12/03/23 08:06 Mode of Arrival: Ambulatory Source of Information: Patient Limitations: No Limitations Description of Symptoms (Recalled from ER Triage Doc. by RN): shortness of air and cough History of Present Illness HPI narrative: Patient is a 53-year-old female with a history of coronary artery disease and asthma who presents today with 1 month of refractory cough. States she is never had any fevers or chills but has had a nagging annoying cough. She also states she has had 5 pillow orthopnea no increased lower extremity edema no history of heart failure that she is aware of but she has had some exertional dyspnea. No history of smoking and has had her asthma not well-controlled for many years at this point. Has many grandkids but no definitive sick contacts that she is aware of. Related Data Home Medications Medication Instructions Recorded Confirmed hydroxyzine pamoate 25 mg capsule 25 mg PO . . 03/08/21 12/03/23 buprenorphine 8 mg-naloxone 2 mg 2 tab sublingual DAILY pain mgmt 03/17/22 12/03/23 sublingual tablet losartan 25 mg tablet 25 mg PO DAILY 02/02/23 12/03/23 trazodone 50 mg tablet 50 mg PO DAILY PRN . 04/03/23 12/03/23 Previous Rx's Medication Instructions Recorded estradiol 2 mg tablet See Rx Instructions .Route 02/15/23 .COMPLEX #90 tabs ergocalciferol (vitamin D2) 1,250 50,000 unit PO QWEEK 90 days #14 03/13/23 mcg (50,000 unit) capsule caps diclofenac sodium 1 % topical gel 2 g topical QID #100 grams 06/06/23 (Aleve (diclofenac)) medroxyprogesterone 2.5 mg tablet See Rx Instructions .Route 07/18/23 .COMPLEX #30 tabs omeprazole 40 mg capsule,delayed See Rx Instructions .Route 10/04/23 release .COMPLEX #90 caps levothyroxine 200 mcg tablet See Rx Instructions .Route 10/16/23 .COMPLEX #30 tabs atorvastatin 10 mg tablet See Rx Instructions .Route 10/23/23 .COMPLEX #90 tabs fluoxetine 40 mg capsule See Rx Instructions .Route 11/08/23 .COMPLEX #90 caps torsemide 100 mg tablet See Rx Instructions .Route 11/08/23 .COMPLEX #90 tabs spironolactone 100 mg tablet See Rx Instructions .Route 11/15/23 .COMPLEX #90 tabs albuterol sulfate 90 mcg/actuation 4 inh inhalation Q4H PRN shortness 12/03/23 aerosol inhaler of breath or wheezing #8.5 grams azithromycin 250 mg tablet 250 mg PO DAILY 4 days #4 tabs 12/03/23 benzonatate 100 mg capsule 100 mg PO TID PRN cough 5 days #20 12/03/23 caps Allergies Allergy/AdvReac Type Severity Reaction Status Date / Time clarithromycin [From BIAXIN] Allergy Mild Verified 12/03/23 08:55 amoxicillin Allergy Verified 12/03/23 08:[address] [facility] Disclaimer: The information contained in this section may have been updated after the patient was seen, as this information can be updated by other users. Medical History Abnormal EKG Anxiety Atypical angina CAD (coronary artery disease) Chest pain Claudication Daytime somnolence Depressed Diastolic dysfunction Dizziness Gastroesophageal reflux disease HHD (hypertensive heart disease) HLD (hyperlipidemia) Hypothyroidism Insomnia Neck Pain Preoperative clearance Radiculopathy affecting upper extremity Restless legs syndrome Typical angina Unstable angina Vitamin D deficiency Surgical History H/O lithotripsy History of hip replacement History of laparoscopic cholecystectomy S/P tonsillectomy and adenoidectomy Stented coronary artery Stented coronary artery Family History Other Family history of COPD (chronic obstructive pulmonary disease) Family history of cancer Family history of myocardial infarction Social History Smoking Status: Never smoker second hand exposure: No alcohol intake: never substance use type: denies use current occupational status: employed and unemployed Travel in the last 8 weeks: None household members: none housing: house 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 current occupational exposures/hazards: No caffeine: Yes ROS Obtained: Yes All systems reviewed & no additional complaints except as documented Physical Exam General General appearance: alert and other (Actively coughing and dyspneic upon walking into the emergency department) Respiratory Respiratory exam: Present other (Diffuse coarse breath sounds with some mild expiratory wheezing able to speak to me in full sentences oxygen saturations 98% on room air lung exam is nonfocal) Cardiovascular Cardiovascular exam: Present tachycardia (Heart rate 110 on my initial evaluation good peripheral perfusion warm extremities) Neurological Exam Neurological exam: Present alert and oriented X3 Medical Decision Making Wolfgang Inquiry Pt receiving controlled substance: No Vital Signs: 12/03/23 07:54 12/03/23 07:58 12/03/23 08:32 Temperature 98.4 F Temperature Source Oral Pulse Rate 104 H 81 Pulse Rate [Right Radial] 102 H Respiratory Rate 24 Blood Pressure 148/75 H 118/88 Blood Pressure [Right Arm] 148/75 H Blood Pressure Mean [Right Arm] 99 02 Sat by Pulse Oximetry 95 94 L 96 Oxygen Delivery Method Room Air Room Air Room Air 12/03/23 09:00 12/03/23 09:30 12/03/23 10:00 Temperature Temperature Source Pulse Rate 90 86 78 Pulse Rate [Right Radial] Respiratory Rate 18 18 15 Blood Pressure 114/60 114/72 111/56 L Blood Pressure [Right Arm] Blood Pressure Mean [Right Arm] 02 Sat by Pulse Oximetry 94 L 96 95 Oxygen Delivery Method 12/03/23 10:30 12/03/23 11:00 12/03/23 12:00 Temperature Temperature Source Pulse Rate 83 89 84 Pulse Rate [Right Radial] Respiratory Rate 16 15 16 Blood Pressure 136/64 117/98 H 111/54 L Blood Pressure [Right Arm] Blood Pressure Mean [Right Arm] 02 Sat by Pulse Oximetry 94 L 95 95 Oxygen Delivery Method Room Air Room Air Room Air 12/03/23 12:30 Temperature Temperature Source Pulse Rate 87 Pulse Rate [Right Radial] Respiratory Rate 18 Blood Pressure 120/63 Blood Pressure [Right Arm] Blood Pressure Mean [Right Arm] 02 Sat by Pulse Oximetry 94 L Oxygen Delivery Method Lab Data Lab results reviewed: Yes I reviewed the patient's lab results. Lab Results 12/03/23 08:17: SARS-CoV-2 (PCR) Not detected, Influenza A Untype (PCR) Not detected, Influenza Type B (PCR) Not detected 12/03/23 08:29: WBC 9.4, RBC 3.65 L, Hgb 11.1 L, Hct 34.6 L, MCV 94.8, MCH 30.4, MCHC 32.1, RDW 15.4, Plt Count 375, MPV 8.2, Neut % (Auto) 74.2, Lymph % (Auto) 17.2, [place] % (Auto) 6.4, Eos % (Auto) 1.5, Baso % (Auto) 0.8, Neut # (Auto) 7.0, Lymph # (Auto) 1.6, [place] # (Auto) 0.6, Eos # (Auto) 0.1, Baso # (Auto) 0.1, Sodium 136, Potassium 2.7 L*, Chloride 92 L, Carbon Dioxide 35 H, Anion Gap 11.7, BUN 33 H, Creatinine 1.30 H, Estimated Creat Clear 44, Estimated GFR 43 L, Est GFR ( Amer) 51 L, Glucose 131 H, Calcium 9.1, Total Bilirubin 0.7, AST 54 H, ALT 25, Alkaline Phosphatase 105, Troponin I < 0.01, NT-Pro-B Natriuret Pep 188 H, Total Protein 7.5, Albumin 3.8, Globulin 3.7 H, Albumin/Globulin Ratio 1.0 L 12/03/23 12:26: Sodium 134 L, Potassium 3.7 D, Chloride 97 L, Carbon Dioxide 30, Anion Gap 10.7, BUN 36 H, Creatinine 1.20 H, Estimated Creat Clear 48, Estimated GFR 47 L, Est GFR ( Amer) 56 L, Glucose 248 H D, Calcium 8.9 12/03/23 08:29 12/03/23 12:26 Orders (Tests/Meds): ED MEDICATIONS Generic Name Dose Route Start Last Admin Trade Name Freq PRN Reason Stop Dose Admin Benzonatate 200 mg 12/03/23 08:15 12/03/23 08:30 Benzonatate 100mg Capsule PO 01/02/24 08:14 200 mg ONCE LADONNA Administration Discontinued Medications Generic Name Dose Route Start Last Admin Trade Name Freq PRN Reason Stop Dose Admin Albuterol/Ipratropium 3 ml 12/03/23 08:03 12/03/23 08:30 Ipratropium/Albuterol 3 Ml Neb IH 12/03/23 08:04 3 ml ONCE ONE Administration Azithromycin 500 mg 12/03/23 09:00 12/03/23 09:04 Azithromycin 250mg Tablet PO 12/03/23 09:01 500 mg ONCE ONE Administration Dexamethasone Sodium Phosphate 10 mg 12/03/23 08:03 12/03/23 08:29 Dexamethasone 4mg/Ml 1ml Vial IV 12/03/23 08:04 10 mg ONCE ONE Administration Lactated Ringer's 1,000 mls @ 999 mls/hr 12/03/23 08:15 12/03/23 08:30 Lactated Ringer's 1000 Ml Bag IV 12/03/23 09:15 999 mls/hr .Q1H1M LADONNA Administration Potassium Chloride/Water 100 mls @ 100 mls/hr 12/03/23 09:00 12/03/23 11:29 Potassium Chloride 10meq/100ml Ivpb IV 12/03/23 11:59 100 mls/hr Q1H LADONNA Administration Potassium Chloride 40 meq 12/03/23 08:49 12/03/23 09:04 Potassium Chloride 20meq Tab PO 12/03/23 08:50 40 meq ONCE ONE Administration ORDERS Category Date Time Status CXR --portable [XR chest portable] Stat Exams 12/03/23 08:03 Completed POCUS Point of Care (ER Only) Stat Exams 12/03/23 07:57 Completed BMP [Basic Metabolic Panel] Stat Lab 12/03/23 12:26 Completed BNP [NT Pro Brain Natriuretic Pep.] Stat Lab 12/03/23 08:29 Completed CBC w/Auto Diff [Complete Blood Count Auto Diff] Stat Lab 12/03/23 08:29 Completed CMP [Comprehensive Metabolic Panel] Stat Lab 12/03/23 08:29 Completed Rapid PCR Covid and Flu A/B Stat Lab 12/03/23 08:17 Completed Trop I [Troponin I] Stat Lab 12/03/23 08:29 Completed ECG Data Tracing #1: I reviewed this ECG and interpreted as documented below: Ventricular rate of 90 poor baseline difficult to tell whether is atrial fibrillation versus sinus with an arrhythmia there is left axis deviation no acute ischemic changes noted no other definitive conduction abnormalities Medical Decision Narrative: 53-year-old female present today with 1 month of chronic cough. Differential includes postnasal drip viral respiratory infection with reactive airways COPD heart failure pneumonia etc. Will get plain films limited bedside ultrasound of the heart and lungs were unremarkable. Therefore not proceed with further workup of CHF at this point. I suspect most likely this is reactive airways or asthma exacerbation in setting of infection. She has had symptoms for 1 month I will have a low threshold for antibiotic administration. Nebs and steroids have been administered. She is also being given 1 L of IV fluids. I see no evidence of pulmonary edema or diminished EF on bedside echo therefore believe she will be volume responsive. Benzonatate is also been given to the patient for symptomatic control. Will reassess shortly. Reassessment 9:26 AM. Chest x-ray performed which I first interpreted shows no acute cardiopulmonary emergency. I will add azithromycin on for the bronchitis of this duration and specifically to make sure that pertussis would be treated. She does have a clarithromycin allergy but she has done well with azithromycin in the past. Of note patient's potassium is 2.7 it has been this low in the past most likely secondary to diuretics. Additionally she has a mild acute kidney injury with a creatinine of 1.3 baseline 0.8. IV fluids being administered. I offered her admission versus close outpatient follow-up and with shared decision making we will do close outpatient follow-up. She has had a significant amount of difficulty getting into her primary care doctor, Janice, and I will give her referral to Dr. Carlos Kimbrough and have her follow-up with soon as possible after her potassium is replaced and IV fluids were placed to make sure her kidney function and potassium have normalized. Patient was placed in ED observation status and I will reassess her after administration of her fluids and potassium to make sure her vital signs are improved and that she is symptomatically improved enough to go home at that point. Reassessment 1:02 PM IV fluids completed and potassium replacement completed as well. Patient feeling much better vital signs improved on my last assessment. Breathing comfortably. She has not coughed for several hours. Antibiotic sent to her pharmacy. First dose of azithromycin was given in the emergency department. Other symptomatic medications were prescribed she was also advised to follow-up within the next 24 to 48 hours with her primary care doctor to have her BMP rechecked. It was improving after her administration of medications today. Patient was discharged in a stable condition referral to Carlos Kimbrough has been given as well. Procedures Miscellaneous Procedure Procedure Performed: Limited cardiac ultrasound Indication: Dyspnea Identified structures: The heart was visualized in the parasternal long axis, parastenal short axis, apical four chamber and subxyphiod views. The IVC was visualized in the short axis and long axis at its entry into the right atrium. Findings: Normal LVEF no obvious significant right heart strain no evidence of pericardial effusion Impression: Normal limited bedside echo Images were saved to permanent archive The study was technically adequate CPT: 16988-06 This study was performed by ar, and I personally interpreted all images/videos. Based on my clinical judgement, these images were adequate and did not necessitate further imaging. Limited lung ultrasound A focused ultrasound exam of the pleural spaces was performed to evaluate for pneumothorax, pulmonary edema, pleural effusion and/or consolidation. The ultrasound was performed with the following indications, as noted in the H&P: Dyspnea Identified structures: Right and left thoracic cavities were examined. Findings: Lung sliding: Bilateral lung sliding present no definitive evidence of B-lines or focal consolidation or pneumothorax Impression: Normal limited bilateral lung ultrasound Images were saved to permanent archive The study was technically adequate CPT 25553-55 This study was performed by ar, and I personally interpreted all images/videos. Based on my clinical judgement, these images were adequate and did not necessitate further imaging. Critical Care Critical Care Time Critical Care Time: No
--- NOTE | 2023-12-03 08:14 | ECG_ITS ---
APPROVED REPORT Exam: Resting ECG HR:90 bpm ECG Measurements Heart Rate 90 AXES QRSd 99 QRS -54 QT 294 T 13 QTc 342 Conclusion ATRIAL FIBRILLATION WITH ABERRANT CONDUCTION OR VENTRICULAR PREMATURE COMPLEXES LEFT AXIS DEVIATION [QRS AXIS < -30] NONSPECIFIC T-WAVE ABNORMALITY ABNORMAL ECG UNCONFIRMED REPORT Electronically signed by : Adam Miranda, 12/03/2023 14:40:42
[2023-12-03 08:19] LABS: Coronavirus 19, PCR Not Detected (NotDetected); Influenza A, PCR Not Detected (NotDetected); Influenza B, PCR Not Detected (NotDetected)
[2023-12-03] MEDS: DEXAMETHASONE 4MG/ML 1ML VIAL 10 MG IV (08:29)
[2023-12-03] MEDS: LACTATED RINGERS 1000ML 1,000 ML 999 ML IV (08:30)
[2023-12-03] MEDS: BENZONATATE 100MG CAPSULE 200 MG PO (08:30)
[2023-12-03] MEDS: IPRATROPIUM/ALBUTEROL 3 ML NEB IH (08:30)
[2023-12-03 08:38] LABS: Basophils # 0.1 K/mm3 (0-0.2); Basophils % 0.8 % (0.1-2.0); Eosinophils # 0.1 K/mm3 (0.0-0.4); Eosinophils % 1.5 % (0.1-12.0); Hematocrit 34.6 % (37.0-47.0); Hemoglobin 11.1 g/dL (12.2-16.2); Lymphocytes # 1.6 K/mm3 (0.7-4.5); Lymphocytes % 17.2 % (10-50); Mean Corpuscular HGB Conc 32.1 g/dL (31.8-35.4); Mean Corpuscular Hemoglobin 30.4 pg (27.0-31.2); Mean Corpuscular Volume 94.8 fl (81-99); Mean Platelet Volume 8.2 fl (7.4-10.4); Monocytes # 0.6 K/mm3 (0.1-1.0); Monocytes % 6.4 % (1.7-9.3); Neutrophils % 74.2 % (37.0-80.0); Platelet Count 375 K/mm3 (142-424); Red Blood Count 3.65 M/mm3 (4.20-5.40); Red Cell Distribution Width 15.4 % (11.5-17.5); White Blood Count 9.4 K/mm3 (4.8-10.8)
[2023-12-03 08:42] LABS: Chloride 92 mmol/L (98-107); Sodium 136 mmol/L (136-145)
[2023-12-03 08:44] LABS: Blood Urea Nitrogen 33 mg/dl (7-17)
--- NOTE | 2023-12-03 08:44 | PC.NURSE ---
critical k+ called by lab
[2023-12-03 08:45] LABS: Alanine Aminotransferase 25 U/L (12-78); Albumin Level 3.8 g/dl (3.5-5.0); Alkaline Phosphatase 105 U/L (38-126); Anion Gap 11.7 mEq/L (5-15); Aspartate Amino Transferase 54 U/L (14-36); Bilirubin,Total 0.7 mg/dl (0.2-1.3); Calcium 9.1 mg/dl (8.4-10.2); Carbon Dioxide 35 mmol/L (22.0-30.0); Creatinine Clearance Estimated 44 mL/min (50-200); Estimated Glomerular Filt Rate 43 ml/min (>60); GFR (African American) 51 ML/MIN (>60); Globulin 3.7 g/dL (1.3-3.2); Glucose 131 mg/dl (74-100); Potassium 2.7 mmoL/L (3.5-5.1); Total Protein,Serum 7.5 g/dl (6.3-8.2)
[2023-12-03 08:54] LABS: NT Pro Brain Natriuretic Pep. 188 pg/mL (0-125)
[2023-12-03 09:00] LABS: Troponin I < 0.01 ng/ml (0.00-0.034)
[2023-12-03] MEDS: AZITHROMYCIN 250MG TABLET 500 MG PO (09:04)
[2023-12-03] MEDS: POTASSIUM CHLORIDE 20MEQ TAB 40 MEQ PO (09:04)
[2023-12-03] MEDS: KCl 10mEq/100ml 100 ML 100 MEQ IV ×3 (09:05→11:29)
--- NOTE | 2023-12-03 10:34 | PC.NURSE ---
pt eating a sandwich. reports improvement with cough.
[2023-12-03 12:50] LABS: Chloride 97 mmol/L (98-107); Potassium 3.7 mmoL/L (3.5-5.1); Sodium 134 mmol/L (136-145)
[2023-12-03 12:53] LABS: Anion Gap 10.7 mEq/L (5-15); Blood Urea Nitrogen 36 mg/dl (7-17); Calcium 8.9 mg/dl (8.4-10.2); Carbon Dioxide 30 mmol/L (22.0-30.0); Creatinine Clearance Estimated 48 mL/min (50-200); Estimated Glomerular Filt Rate 47 ml/min (>60); GFR (African American) 56 ML/MIN (>60); Glucose 248 mg/dl (74-100)
== END 2023-12-03 13:13 | disposition home or self-care (01) ==
PROVIDERS: Emergency Provider Student in an Organized Health Care Education/Training Program; PCP Physician Assistant
DX: E87.6 Hypokalemia (principal); E86.0 Dehydration; R94.31 Abnormal electrocardiogram [ECG] [EKG]; J45.901 Unspecified asthma with (acute) exacerbation; J20.9 Acute bronchitis, unspecified; N17.8 Other acute kidney failure; I11.9 Hypertensive heart disease without heart failure; I25.119 Atherosclerotic heart disease of native coronary artery with unspecified angina pectoris; E78.5 Hyperlipidemia, unspecified; E03.9 Hypothyroidism, unspecified; Z95.5 Presence of coronary angioplasty implant and graft
CPT/HCPCS: 71045; 80048; 80053; 83880; 84484; 85025; 87636; 93005; 96365; 96366; 96375; 99285

== ENCOUNTER 2024-01-16 11:37 | Emergency (ER) | payer OTHER, SELFPAY ==
[2024-01-16 11:39] VITALS: BP 129/59; PULSE 85; RESP 20; TEMP 37.1; O2SAT 96; BMI 44.7
--- NOTE | 2024-01-16 12:02 | XR_ITS ---
FINAL REPORT CLINICAL HISTORY: red/warm thenar eminence, pain, limited ROM COMPARISON: 05/06/2022 FINDINGS: LEFT HAND Three views demonstrate no acute fracture or dislocation. The visualized joint spaces are normally aligned. There is mild soft tissue edema over the dorsum of the hand. IMPRESSION: Mild soft tissue edema without acute bony abnormality. Reviewed, Interpreted and Dictated by Eligio Underwood MD Transcribed by Cindy Lang Authenticated and . [facility]
--- NOTE | 2024-01-16 12:04 | ED_ITS ---
Discharge Plan Disposition Patient Disposition: Xfer Short-Term Hosp Prescriptions Prescriptions: No Action hydroxyzine pamoate 25 mg capsule 25 mg PO . trazodone 50 mg tablet 50 mg PO DAILY PRN (Reason: .) losartan 25 mg tablet 25 mg PO DAILY buprenorphine-naloxone 8-2 mg tablet, sublingual 2 tab SL DAILY Hold Instructions: Resume on 05/15/22. Hold while taking [place] estradiol 2 mg tablet See Rx Instructions .ROUTE .COMPLEX Qty: 90 3RF Dose Instruction: Take 1 tablet by mouth once daily Rx Instructions: Take 1 tablet by mouth once daily ergocalciferol (vitamin D2) 1,250 mcg (50,000 unit) capsule 50,000 unit PO QWEEK 90 Days Qty: 14 3RF medroxyprogesterone 2.5 mg tablet See Rx Instructions .ROUTE .COMPLEX Qty: 30 6RF Dose Instruction: TAKE ONE TABLET BY MOUTH ONCE A DAY Rx Instructions: TAKE ONE TABLET BY MOUTH ONCE A DAY atorvastatin 10 mg tablet See Rx Instructions .ROUTE .COMPLEX Qty: 90 3RF Dose Instruction: TAKE ONE TABLET BY MOUTH ONCE A DAY FOR CHOLESTEROL Rx Instructions: TAKE ONE TABLET BY MOUTH ONCE A DAY FOR CHOLESTEROL spironolactone 100 mg tablet 50 mg PO DAILY Qty: 90 1RF torsemide 100 mg tablet 50 mg PO DAILY Qty: 90 1RF fluoxetine 40 mg capsule See Rx Instructions .ROUTE .COMPLEX Qty: 30 0RF Dose Instruction: TAKE 2 CAPSULES BY MOUTH ONCE A DAY GENERIC FOR PROZAC Rx Instructions: TAKE 2 CAPSULES BY MOUTH ONCE A DAY GENERIC FOR PROZAC levothyroxine 200 mcg tablet See Rx Instructions .ROUTE .COMPLEX Qty: 30 0RF Dose Instruction: TAKE ONE TABLET BY MOUTH ONCE A DAY Rx Instructions: TAKE ONE TABLET BY MOUTH ONCE A DAY omeprazole 40 mg capsule,delayed release(DR/EC) See Rx Instructions .ROUTE .COMPLEX Qty: 90 0RF Dose Instruction: TAKE ONE CAPSULE BY MOUTH ONCE A DAY Rx Instructions: TAKE ONE CAPSULE BY MOUTH ONCE A DAY albuterol sulfate 90 mcg/actuation HFA aerosol inhaler 4 inh inhalation Q4H PRN (Reason: shortness of breath or wheezing) Qty: 8.5 0RF Rx Instructions: 4 puffs every 4 hours for 48 hours then as needed for shortness of breath or wheezing following Referrals Follow up/Referrals: Janice Fitzpatrick PA [Primary Care Provider] - See instructions Activity Restrictions/Add. Instructions Additional Instructions/Restrictions: You were evaluated in the emergency department today. Please proceed directly to [facility] emergency department for further evaluation and management by hand. [address], [place] [facility], First Floor, [place] [address]. Clinical Impressions Clinical Impression: Cellulitis of hand, left, Decreased range of motion of left thumb, Elevated erythrocyte sedimentation rate, Elevated C-reactive protein Stand Alone Forms Stand Alone Forms: Transfer Record - ED Instructions Patient Instructions: DI for Hand Pain Discharge ED Provider: Isaac Dugan General Adult HPI General Chief complaint: PAIN Stated complaint: left hand swelling and pain Time Seen by Provider: 01/16/24 11:44 Mode of Arrival: Ambulatory Source of Information: Patient Limitations: No Limitations Description of Symptoms (Recalled from ER Triage Doc. by RN): PT C/O LEFT HAND PAIN AND SWELLING THAT SHE WOKE WITH MONDAY AM, NO INJURY History of Present Illness HPI narrative: This patient is a 53-year-old female with a history of CAD, hypertension, hyperlipidemia, hypothyroidism, and GERD presenting to the emergency department for evaluation of atraumatic left hand pain. Patient states that she woke up Monday morning with redness, pain, and swelling to her left thenar eminence. No accidents or injuries noted. No recent wounds or skin injuries. She states that she cannot move her left thumb secondary to the pain. It has progressively gotten worse and worse to the point where she felt the need to come in here today. Related Data Home Medications Medication Instructions Recorded Confirmed hydroxyzine pamoate 25 mg capsule 25 mg PO . . 03/08/21 01/11/24 buprenorphine 8 mg-naloxone 2 mg 2 tab sublingual DAILY pain mgmt 03/17/22 01/11/24 sublingual tablet losartan 25 mg tablet 25 mg PO DAILY 02/02/23 01/11/24 trazodone 50 mg tablet 50 mg PO DAILY PRN . 04/03/23 01/11/24 Previous Rx's Medication Instructions Recorded estradiol 2 mg tablet See Rx Instructions .Route 02/15/23 .COMPLEX #90 tabs ergocalciferol (vitamin D2) 1,250 50,000 unit PO QWEEK 90 days #14 03/13/23 mcg (50,000 unit) capsule caps medroxyprogesterone 2.5 mg tablet See Rx Instructions .Route 07/18/23 .COMPLEX #30 tabs atorvastatin 10 mg tablet See Rx Instructions .Route 10/23/23 .COMPLEX #90 tabs albuterol sulfate 90 mcg/actuation 4 inh inhalation Q4H PRN shortness 12/03/23 aerosol inhaler of breath or wheezing #8.5 grams spironolactone 100 mg tablet 50 mg (1/2 x 100 mg) PO DAILY #90 12/04/23 tabs torsemide 100 mg tablet 50 mg (1/2 x 100 mg) PO DAILY #90 12/04/23 tabs fluoxetine 40 mg capsule See Rx Instructions .Route 12/21/23 .COMPLEX #30 caps levothyroxine 200 mcg tablet See Rx Instructions .Route 12/26/23 .COMPLEX #30 tabs omeprazole 40 mg capsule,delayed See Rx Instructions .Route 01/08/24 release .COMPLEX #90 caps Allergies Allergy/AdvReac Type Severity Reaction Status Date / Time clarithromycin [From BIAXIN] Allergy Mild Verified 01/11/24 09:28 amoxicillin Allergy Verified 01/11/24 09:28 [facility] Disclaimer: The information contained in this section may have been updated after the patient was seen, as this information can be updated by other users. Medical History Typical angina Depressed Anxiety Restless legs syndrome Insomnia Daytime somnolence Abnormal EKG Unstable angina Dizziness Atypical angina Claudication Chest pain Gastroesophageal reflux disease Preoperative clearance Diastolic dysfunction Vitamin D deficiency Hypothyroidism HLD (hyperlipidemia) HHD (hypertensive heart disease) CAD (coronary artery disease) Neck Pain Radiculopathy affecting upper extremity Surgical History History of laparoscopic cholecystectomy S/P tonsillectomy and adenoidectomy Stented coronary artery H/O lithotripsy History of hip replacement Stented coronary artery Family History Other Family history of COPD (chronic obstructive pulmonary disease) Family history of cancer Family history of myocardial infarction Social History Smoking Status: Never smoker second hand exposure: No alcohol intake: never substance use type: denies use current occupational status: employed and unemployed Travel in the last 8 weeks: None household members: none housing: house 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 current occupational exposures/hazards: No caffeine: Yes ROS Obtained: Yes All systems reviewed & no additional complaints except as documented Physical Exam General General appearance: alert and in no apparent distress Head Head exam: atraumatic and normocephalic Eye Eye exam: Present normal appearance, PERRL and EOMI ENT ENT exam: Present normal exam, normal oropharynx, mucous membranes moist and normal external ear exam Neck Neck exam: Present normal inspection, full ROM and trachea midline; Absent tenderness Chest Chest inspection: Present normal inspection and symmetric chest wall rise; Absent tenderness Respiratory Respiratory exam: Present normal lung sounds bilaterally; Absent respiratory distress, wheezes, stridor or accessory muscle use Cardiovascular Cardiovascular exam: Present regular rate and normal rhythm Abdominal Exam Abdominal exam: Present soft; Absent distention, tenderness or guarding Extremities Exam Extremities exam: Present tenderness (Left thenar eminence with erythema, warmth, and swelling) and normal capillary refill; Absent full ROM (Limited range of motion of the left thumb secondary to pain) or edema Back Exam Back exam: Present normal inspection and full ROM; Absent tenderness Neurological Exam Neurological exam: Present alert, oriented X3, CN II-XII intact and normal gait; Absent motor sensory deficit Psychiatric Psychiatric exam: Present normal affect and normal mood Skin Skin exam: Present warm and dry Medical Decision Making Medical Records Medical records reviewed: Yes I reviewed the patient's medical records. Wolfgang Inquiry Pt receiving controlled substance: No Vital Signs: 01/16/24 11:39 01/16/24 12:30 01/16/24 13:30 Temperature 98.7 F Temperature Source Oral Pulse Rate 86 87 Pulse Rate [Radial] 85 Respiratory Rate 20 18 18 Blood Pressure 125/56 L 118/61 Blood Pressure [Right Arm] 129/59 L Blood Pressure Mean [Right Arm] 82 Blood Pressure Source Automatic Cuff Automatic Cuff Blood Pressure Source [Right Arm] Manual Cuff/ Palpation Blood Pressure Position Sitting Sitting 02 Sat by Pulse Oximetry 96 95 99 Oxygen Delivery Method Room Air Nasal Cannula Room Air 01/16/24 14:30 01/16/24 15:22 Temperature 98.6 F Temperature Source Oral Pulse Rate 80 81 Pulse Rate [Radial] Respiratory Rate 18 18 Blood Pressure 122/70 128/60 Blood Pressure [Right Arm] Blood Pressure Mean [Right Arm] Blood Pressure Source Automatic Cuff Manual Cuff/ Doppler Blood Pressure Source [Right Arm] Blood Pressure Position Sitting Sitting 02 Sat by Pulse Oximetry 98 99 Oxygen Delivery Method Room Air Room Air Lab Data Lab results reviewed: Yes I reviewed the patient's lab results. Lab Results 01/16/24 12:10: WBC 10.0, RBC 3.46 L, Hgb 10.6 L, Hct 33.0 L, MCV 95.3, MCH 30.8, MCHC 32.3, RDW 16.5, Plt Count 378, MPV 7.9, Neut % (Auto) 80.3 H, Lymph % (Auto) 11.7, [facility] % (Auto) 7.0, Eos % (Auto) 0.7, Baso % (Auto) 0.2, Neut # (Auto) 8.0 H, Lymph # (Auto) 1.2, [facility] # (Auto) 0.7, Eos # (Auto) 0.1, Baso # (Auto) 0.0, ESR 95 H, Sodium 133 L, Potassium 3.1 L, Chloride 92 L, Carbon Dioxide 30, Anion Gap 14.1, BUN 10, Creatinine 0.80, Estimated Creat Clear 71, Estimated GFR 74, Est GFR ( Amer) 90, Glucose 150 H, Uric Acid 9.8 H, C alcium 8.3 L, Total Bilirubin 0.7, AST 48 H, ALT 31, Alkaline Phosphatase 94, C- Reactive Protein 42.8 H, Total Protein 7.5, Albumin 3.8, Globulin 3.7 H, A lbumin/Globulin Ratio 1.0 L 01/16/24 12:10 01/16/24 12:10 Orders (Tests/Meds): ED MEDICATIONS Discontinued Medications Generic Name Dose Route Start Last Admin Trade Name Fortunatoq PRN Reason Stop Dose Admin Acetaminophen 1,000 mg 01/16/24 12:03 01/16/24 12:08 Acetaminophen 500mg Tab PO 01/16/24 12:04 1,000 mg ONCE ONE Administration Ketorolac Tromethamine 15 mg 01/16/24 12:03 01/16/24 12:08 Ketorolac 30mg/Ml Vial IV 01/16/24 12:04 15 mg ONCE ONE Administration Oxycodone HCl 5 mg 01/16/24 14:13 01/16/24 14:20 Oxycodone 5mg Immediate Release Tablet PO 01/16/24 14:14 5 mg ONCE ONE Administration ORDERS Category Date Time Status XR hand LT min 3V Stat Exams 01/16/24 12:02 Completed C-Reactive Protein Stat Lab 01/16/24 12:10 Completed Complete Blood Count Auto Diff Stat Lab 01/16/24 12:10 Completed Comprehensive Metabolic Panel Stat Lab 01/16/24 12:10 Completed Erythrocyte Sedimentation Rate Stat Lab 01/16/24 12:10 Completed Uric Acid Stat Lab 01/16/24 12:10 Completed Medical Decision Narrative: In summary, this patient is a 53-year-old female presenting to the Emergency Department for evaluation of atraumatic left hand pain and limited range of motion of her left thumb. Differential diagnoses considered include but are not limited to extensor tenosynovitis, flexor tenosynovitis, cellulitis, gouty arthritis. Ruling out the most morbid conditions drove assessment. It should be noted patient's history includes CAD, hypertension, hyperlipidemia, hypothyroidism, GERD which may or may not be at goal therapy. This complicates all aspects of care by increasing patient's risk for morbidity. On exam, the patient is nontoxic-appearing. She has redness, warmth, and tenderness to her left thumb. She has limited range of motion of the left thumb with fusiform swelling. No obvious wounds. Workup included CBC, CMP, ESR, CRP, and x-rays of the left hand. She was given oral Tylenol and IM Toradol for symptomatic improvement. I independently interpreted XR prior to the radiologist read and noted soft tissue swelling without bony destruction. Please see their read for final interpretation. Labs were obtained that demonstrated elevated ESR/CRP. On reassessment, the patient has significantly worsening pain. Given this, she was given oral oxycodone. She notes that the pain and redness seem to be worsening. She notes that she feels like she cannot move her left thumb at all. X-rays do not demonstrate any acute bony abnormalities. Labs concerning for inflammation with elevated ESR and CRP. I called and had an interactive discussion with Merary Corcoran in Transfer center. She accepted the patient to [facility] for hand evaluation. Patient states that she wants to go by her daughter, who will drive her there. I advised that she not drive or operate her machinery since she took narcotic pain medication. I advised that she proceed directly there for evaluation. She went POV to [facility] in stable condition. Critical Care Critical Care Time Critical Care Time: No
[2024-01-16] MEDS: ACETAMINOPHEN 500MG TAB 1000 MG PO (12:08)
[2024-01-16] MEDS: KETOROLAC 30MG/ML VIAL 15 MG IV (12:08)
--- NOTE | 2024-01-16 12:10 | PC.NURSE ---
PT TO XR
--- NOTE | 2024-01-16 12:17 | PC.NURSE ---
PT RETURNED FROM XR
[2024-01-16 12:22] LABS: Basophils % 0.2 % (0.1-2.0); Eosinophils # 0.1 K/mm3 (0.0-0.4); Eosinophils % 0.7 % (0.1-12.0); Hemoglobin 10.6 g/dL (12.2-16.2); Lymphocytes # 1.2 K/mm3 (0.7-4.5); Lymphocytes % 11.7 % (10-50); Mean Corpuscular HGB Conc 32.3 g/dL (31.8-35.4); Mean Corpuscular Hemoglobin 30.8 pg (27.0-31.2); Mean Corpuscular Volume 95.3 fl (81-99); Mean Platelet Volume 7.9 fl (7.4-10.4); Monocytes # 0.7 K/mm3 (0.1-1.0); Neutrophils % 80.3 % (37.0-80.0); Platelet Count 378 K/mm3 (142-424); Red Blood Count 3.46 M/mm3 (4.20-5.40); Red Cell Distribution Width 16.5 % (11.5-17.5)
[2024-01-16 12:30] VITALS: BP 125/56; PULSE 86; RESP 18; O2SAT 95
[2024-01-16 12:30] LABS: Alanine Aminotransferase 31 U/L (12-78); Albumin Level 3.8 g/dl (3.5-5.0); Alkaline Phosphatase 94 U/L (38-126); Anion Gap 14.1 mEq/L (5-15); Aspartate Amino Transferase 48 U/L (14-36); Bilirubin,Total 0.7 mg/dl (0.2-1.3); Blood Urea Nitrogen 10 mg/dl (7-17); Calcium 8.3 mg/dl (8.4-10.2); Carbon Dioxide 30 mmol/L (22.0-30.0); Chloride 92 mmol/L (98-107); Creatinine Clearance Estimated 71 mL/min (50-200); Estimated Glomerular Filt Rate 74 ml/min (>60); GFR (African American) 90 ML/MIN (>60); Globulin 3.7 g/dL (1.3-3.2); Glucose 150 mg/dl (74-100); Potassium 3.1 mmoL/L (3.5-5.1); Sodium 133 mmol/L (136-145); Total Protein,Serum 7.5 g/dl (6.3-8.2)
[2024-01-16 12:35] LABS: C-Reactive Protein 42.8 mg/L (0-4)
[2024-01-16 12:54] LABS: Erythrocyte Sedimentation Rate 95 mm/hr (0-30)
--- NOTE | 2024-01-16 13:09 | PC.NURSE ---
IMAGES POWERSHARED WITH [facility]
[2024-01-16 13:30] VITALS: BP 118/61; PULSE 87; RESP 18; O2SAT 99
--- NOTE | 2024-01-16 13:31 | PC.NURSE ---
o/p with transfer center at this time.
[2024-01-16] MEDS: OXYCODONE 5MG IMMEDIATE RELEASE TABLET 5 MG PO (14:20)
[2024-01-16 14:30] VITALS: BP 122/70; PULSE 80; RESP 18; O2SAT 98
--- NOTE | 2024-01-16 14:33 | PC.NURSE ---
calling [facility] for update.
--- NOTE | 2024-01-16 14:35 | PC.NURSE ---
DR CARNES AT BEDSIDE TO UPDATE PT
--- NOTE | 2024-01-16 14:37 | PC.NURSE ---
o/p with at this time.
[2024-01-16 14:47] LABS: Uric Acid 9.8 mg/dl (2.5-6.2)
--- NOTE | 2024-01-16 15:20 | PC.NURSE ---
pt is trying to find a ride to [place]
[2024-01-16 15:22] VITALS: BP 128/60; PULSE 81; RESP 18; TEMP 37; O2SAT 99
[2024-01-16 16:32] VITALS: BP 125/60; PULSE 80; RESP 20; TEMP 37.1; O2SAT 95
--- NOTE | 2024-01-17 02:29 | PC.NURSE ---
returned call to 'osman' at pharmacy for confirmation that patient didn't receive any antibiotics while in the ER here. [phone]
== END 2024-01-16 16:33 | disposition short-term general hospital (02) ==
PROVIDERS: Emergency Medicine; Emergency Provider Emergency Medicine; PCP Physician Assistant
DX: L03.114 Cellulitis of left upper limb (principal); M25.642 Stiffness of left hand, not elsewhere classified; R70.0 Elevated erythrocyte sedimentation rate; R79.82 Elevated C-reactive protein (CRP); E87.6 Hypokalemia; E87.1 Hypo-osmolality and hyponatremia; K21.9 Gastro-esophageal reflux disease without esophagitis; E03.9 Hypothyroidism, unspecified; E78.5 Hyperlipidemia, unspecified; I11.9 Hypertensive heart disease without heart failure; I25.119 Atherosclerotic heart disease of native coronary artery with unspecified angina pectoris; Z95.5 Presence of coronary angioplasty implant and graft
CPT/HCPCS: 73130; 80053; 84550; 85025; 85651; 86140; 96374; 99284

== ENCOUNTER 2024-04-03 12:58 | Outpatient (CLI) | payer OTHER, SELFPAY ==
--- NOTE | 2024-04-03 12:58 | US_ITS ---
PROCEDURE: US TRANSVAGINAL CLINICAL INDICATION: Postmenopausal bleeding COMPARISON: US US TRANSVAGINAL from 08/16/2022 FINDINGS: Transvaginal sonographic images of the pelvis were obtained. UTERUS: 9.6 cm x 4.9 cmx 4.1cm anteverted with a combined endometrial thickness of 6.7mm. There is an anterior fibroid measuring 2.0 cm cm x 1.4 cm x 1.6 cm. There is a 1.0 cm nabothian cyst in the cervix. There are a few hyperechoic areas in the lower uterine segment and cervix. LEFT OVARY: Not visualized. RIGHT OVARY: Not visualized. Both ovaries are not visualized. There is no fluid in the cul-de-sac. IMPRESSION: 1. Anteverted somewhat bulky uterus. The endometrium measures 6.7 mm. 2. There is an anterior fibroid in the uterus measuring 2.0 cm. 3. The ovaries could not be visualized today. 4. No fluid in the cul-de-sac. Dictated by: Darrian Soares MD 04/03/2024 15:57 Darrian Soares MD in [facility] 04/03/2024 15:57
== END 2024-04-03 23:59 | disposition home or self-care (01) ==
LOC: RAD 12:58
PROVIDERS: PCP Physician Assistant; Visit Provider Nurse Practitioner Obstetrics & Gynecology
DX: N95.0 Postmenopausal bleeding (principal)
CPT/HCPCS: 76830

== ENCOUNTER 2024-04-19 10:30 | Outpatient (CLI) | payer OTHER, SELFPAY ==
[2024-04-19 10:35] LABS: Microscopic, Urine URINE MICROSCOPIC (MICROSCOPIC)
[2024-04-19 10:58] LABS: Basophils % 0.4 % (0.1-2.0); Eosinophils # 0.1 K/mm3 (0.0-0.4); Hematocrit 33.7 % (37.0-47.0); Lymphocytes % 16.1 % (10-50); Mean Corpuscular HGB Conc 32.6 g/dL (31.8-35.4); Mean Corpuscular Hemoglobin 34.6 pg (27.0-31.2); Mean Corpuscular Volume 106.2 fl (81-99); Mean Platelet Volume 8.4 fl (7.4-10.4); Monocytes # 0.5 K/mm3 (0.1-1.0); Monocytes % 7.8 % (1.7-9.3); Neutrophils # 4.6 K/mm3 (1.8-7.8); Neutrophils % 74.6 % (37.0-80.0); Platelet Count 333 K/mm3 (142-424); Red Blood Count 3.18 M/mm3 (4.20-5.40); Red Cell Distribution Width 18.5 % (11.5-17.5); White Blood Count 6.2 K/mm3 (4.8-10.8)
[2024-04-19 11:06] LABS: Appearance,Urine CLEAR (Clear); Bilirubin,Urine Negative (Negative); Blood, Urine Negative (Negative); Color,Urine YELLOW (Yellow); Glucose,Urine (UA) Negative (Negative); Ketones,Urine Negative (Negative); Leukocyte Esterase,Urine 1+ (Negative); Nitrate,Urine Negative (Negative); Protein,Urine Negative (Negative); Urobilinogen,Urine 0.2 EU/dl (0.2)
[2024-04-19 12:00] LABS: Hemoglobin A1C 5.9 % (4.0-6.0)
[2024-04-19 12:19] LABS: Albumin Level 4.1 g/dl (3.5-5.0); Chloride 99 mmol/L (98-107); Potassium 3.9 mmoL/L (3.5-5.1); Sodium 135 mmol/L (136-145)
[2024-04-19 12:22] LABS: Alanine Aminotransferase 33 U/L (12-78); Albumin/Globulin Ratio 1.3 (1.1-1.8); Alkaline Phosphatase 107 U/L (38-126); Anion Gap 10.9 mEq/L (5-15); Aspartate Amino Transferase 61 U/L (14-36); Bilirubin,Total 0.8 mg/dl (0.2-1.3); Blood Urea Nitrogen 37 mg/dl (7-17); Carbon Dioxide 29 mmol/L (22.0-30.0); Cholesterol 227 mg/dl (140-200); Estimated Glomerular Filt Rate 47 ml/min (>60); GFR (African American) 56 ML/MIN (>60); Globulin 3.1 g/dL (1.3-3.2); Total Protein,Serum 7.2 g/dl (6.3-8.2); Triglycerides 144 mg/dl (30-150); VLDL Cholesterol 29 mg/dL (0-40)
[2024-04-19 12:23] LABS: Calcium 9.2 mg/dl (8.4-10.2); Chol/HDL Ratio 2.8 (1-3.5); Glucose 112 mg/dl (74-100); HDL Cholesterol 82 mg/dl (40-60)
[2024-04-19 12:33] LABS: Direct LDL Cholesterol 104.34 mg/dL (100-129)
[2024-04-19 12:42] LABS: 25-OH Vitamin D, Total 39.3 ng/mL (30-100)
[2024-04-19 12:55] LABS: Bacteria,Urine Trace /lpf; Squamous Epithelial Cell,Urine Occasional #/hpf (0-5)
== END 2024-04-19 23:59 | disposition home or self-care (01) ==
LOC: LAB 10:31
PROVIDERS: PCP Physician Assistant; Visit Provider Physician Assistant
DX: R53.83 Other fatigue (principal); R11.0 Nausea
CPT/HCPCS: 36415; 80050; 80053; 80061; 81001; 82306; 83036; 84443; 85025; 87086

== ENCOUNTER 2024-05-21 12:10 | Outpatient (CLI) | payer OTHER, SELFPAY ==
[2024-05-21 12:31] LABS: Alanine Aminotransferase 31 U/L (12-78); Albumin Level 4.1 g/dl (3.5-5.0); Albumin/Globulin Ratio 1.3 (1.1-1.8); Alkaline Phosphatase 89 U/L (38-126); Anion Gap 13.9 mEq/L (5-15); Aspartate Amino Transferase 34 U/L (14-36); Bilirubin,Total 1.4 mg/dl (0.2-1.3); Blood Urea Nitrogen 33 mg/dl (7-17); Calcium 9.6 mg/dl (8.4-10.2); Carbon Dioxide 27 mmol/L (22.0-30.0); Chloride 95 mmol/L (98-107); Estimated Glomerular Filt Rate 39 ml/min (>60); GFR (African American) 47 ML/MIN (>60); Globulin 3.1 g/dL (1.3-3.2); Glucose 141 mg/dl (74-100); Sodium 133 mmol/L (136-145); Total Protein,Serum 7.2 g/dl (6.3-8.2)
[2024-05-21 12:36] LABS: C-Reactive Protein 123.3 mg/L (0-4)
[2024-05-21 12:42] LABS: Erythrocyte Sedimentation Rate > 140 mm/hr (0-30)
[2024-05-21 13:38] LABS: Vitamin B12 284 pg/mL (239-931)
[2024-05-21 14:03] LABS: Folate 3.84 ng/mL
[2024-05-21 14:09] LABS: Potassium 2.9 mmoL/L (3.5-5.1)
[2024-05-21 17:13] LABS: HIV (1&2) Antibody Rapid NONREACTIVE (NONREACTIVE)
[2024-05-21 23:01] LABS: Microalbumin/Creatinine Ratio 48.8
[2024-05-21 23:04] LABS: Creatinine,Urine Random 45 mg/dL (Not Estab.)
[2024-05-22 11:15] LABS: HCV Ab Non Reactive (Non Reactive)
== END 2024-05-21 23:59 | disposition home or self-care (01) ==
LOC: LAB.DROPOF 12:11
PROVIDERS: PCP Internal Medicine; Visit Provider Internal Medicine
DX: R79.82 Elevated C-reactive protein (CRP) (principal); R70.0 Elevated erythrocyte sedimentation rate; L03.114 Cellulitis of left upper limb; E66.01 Morbid (severe) obesity due to excess calories; R53.83 Other fatigue; N18.31 Chronic kidney disease, stage 3a; I11.0 Hypertensive heart disease with heart failure; I50.33 Acute on chronic diastolic (congestive) heart failure; E78.2 Mixed hyperlipidemia; Z11.59 Encounter for screening for other viral diseases; Z13.1 Encounter for screening for diabetes mellitus; R73.03 Prediabetes; Z68.42 Body mass index [BMI] 45.0-49.9, adult
CPT/HCPCS: 80053; 82043; 82570; 82607; 82746; 83036; 85651; 86140; 86803; 87389

== ENCOUNTER 2024-06-10 06:54 | Observation (INO) | payer OTHER, SELFPAY ==
[2024-06-10] VITALS (15 sets, daily range): BP systolic 96–156; BP diastolic 57–117; PULSE 75–97; RESP 13–22; TEMP 36.7–37; O2SAT 92–100; BMI 51.1; BMI 45.5
--- NOTE | 2024-06-10 07:22 | PC.NURSE ---
DR BARNES AT BEDSIDE
--- NOTE | 2024-06-10 07:51 | XR_ITS ---
PROCEDURE INFORMATION: Exam: XR Left Wrist Exam date and time: 06/10/2024 8:17 AM Age: 53 years old Clinical indication: Pain; Wrist; Left; Additional info: Non traumatic pain TECHNIQUE: Imaging protocol: Radiologic exam of the left wrist. Views: 3 or more views. COMPARISON: CR XR WRIST LT MIN 3V 04/21/2024 9:40 AM FINDINGS: Bones/joints: No acute fracture or malalignment. No worrisome lytic or blastic lesion. No cortical erosion or periosteal reaction. Moderate joint space narrowing and osteophyte formation at the 1st carpometacarpal joint. Mild scattered degenerative changes otherwise. Soft tissues: 3 mm vandana of subtle calcification projects in the soft tissues of the radial aspect of the trapezium. Nonspecific finding. Possibly remote posttraumatic. IMPRESSION: 1. No acute findings. 2. Moderate osteoarthritis of the 1st CMC joint.
--- NOTE | 2024-06-10 07:51 | XR_ITS ---
PROCEDURE INFORMATION: Exam: XR Left Hand Exam date and time: 06/10/2024 8:17 AM Age: 53 years old Clinical indication: Pain; Hand; Left; Additional info: Non traumatic pain TECHNIQUE: Imaging protocol: Radiologic exam of the left hand. Views: 3 or more views. COMPARISON: CR XR HAND LT MIN 3V 04/21/2024 9:40 AM FINDINGS: Bones/joints: No acute fracture or malalignment. No worrisome lytic or blastic osseous lesion. [id number] degenerative change at the 1st carpometacarpal joint. Tiny (3 mm) vandana of soft tissue calcification projecting in the radial soft tissues of the trapezium may be posttraumatic or postinfectious. Soft tissues: Otherwise, no soft tissue abnormality. IMPRESSION: 1. No acute fracture or malalignment. 2. [id number] degenerative change at the 1st carpometacarpal joint. 3. Tiny (3 mm) vandana of soft tissue calcification projecting in the radial soft tissues of the trapezium may be posttraumatic or postinfectious. No appreciable foreign body or gas.
--- NOTE | 2024-06-10 07:51 | XR_ITS ---
PROCEDURE INFORMATION: Exam: XR Left Forearm Exam date and time: 06/10/2024 8:17 AM Age: 53 years old Clinical indication: Pain; Lower or forearm; Left; Additional info: Non traumatic pain TECHNIQUE: Imaging protocol: Radiologic exam of the left forearm. Views: 2 views. COMPARISON: CR XR FOREARM LT 2V 04/21/2024 9:45 AM FINDINGS: Bones/joints: The inferior cortex of the left triquetrum/pisiform appears eroded on the AP view, not well seen on the lateral view a component of which may be due to position/technique. No acute fracture or malalignment. Otherwise, no worrisome lytic or blastic osseous lesion. No appreciable cortical erosion or periosteal reaction. Mild degenerative changes of the triscaphe joint. Joint spaces otherwise preserved. No joint effusion. Soft tissues: No soft tissue abnormality. IMPRESSION: 1. No acute fracture or malaligment. 2. The inferior cortex of the left triquetrum/pisiform appears eroded on the AP view, not well seen on the lateral view , a component of which may be due to position/technique. If there is concern for an infectious or malignant process, CT, ultrasound or MRI can be considered for complete evaluation.
[2024-06-10] MEDS: MORPHINE 4MG/ML SYRINGE 4 MG IV ×2 (08:07→12:25)
[2024-06-10] MEDS: LACTATED RINGERS 1000ML 1,000 ML 999 ML IV (08:07)
[2024-06-10] MEDS: ONDANSETRON 4MG/2ML VIAL 4 MG IV (08:07)
--- NOTE | 2024-06-10 08:10 | ED_ITS ---
Discharge Plan Disposition Patient Disposition: Admitted Prescriptions Prescriptions: No Action losartan 25 mg tablet 25 mg PO DAILY hydroxyzine pamoate 25 mg capsule 25 mg PO QHS Qty: 90 0RF potassium chloride 20 mEq tablet,ER particles/crystals 20 meq PO DAILY Qty: 30 2RF buprenorphine-naloxone 8-2 mg tablet, sublingual 2 tab SL DAILY diclofenac sodium 1 % gel topical spironolactone 100 mg tablet 50 mg PO DAILY Qty: 90 1RF torsemide 100 mg tablet 50 mg PO DAILY Qty: 90 1RF ergocalciferol (vitamin D2) 1,250 mcg (50,000 unit) capsule 50,000 unit PO QWEEK 90 Days Qty: 14 3RF fluoxetine 40 mg capsule See Rx Instructions .ROUTE .COMPLEX Qty: 90 0RF Dose Instruction: TAKE 2 CAPSULES BY MOUTH ONCE A DAY GENERIC FOR PROZAC Rx Instructions: TAKE 2 CAPSULES BY MOUTH ONCE A DAY GENERIC FOR PROZAC omeprazole 40 mg capsule,delayed release(DR/EC) See Rx Instructions .ROUTE .COMPLEX Qty: 90 0RF Dose Instruction: TAKE ONE CAPSULE BY MOUTH ONCE A DAY Rx Instructions: TAKE ONE CAPSULE BY MOUTH ONCE A DAY medroxyprogesterone [Provera] 5 mg tablet 2.5 mg PO DAILY Qty: 30 6RF atorvastatin [Lipitor] 20 mg tablet 20 mg PO DAILY Qty: 30 2RF levothyroxine 200 mcg tablet See Rx Instructions .ROUTE .COMPLEX Qty: 30 0RF Dose Instruction: TAKE ONE TABLET BY MOUTH ONCE A DAY Rx Instructions: TAKE ONE TABLET BY MOUTH ONCE A DAY albuterol sulfate 90 mcg/actuation HFA aerosol inhaler 4 inh inhalation Q4H PRN (Reason: shortness of breath or wheezing) Qty: 8.5 0RF Rx Instructions: 4 puffs every 4 hours for 48 hours then as needed for shortness of breath or wheezing following Referrals Follow up/Referrals: Janice Fitzpatrick PA [Primary Care Provider] - See instructions Clinical Impressions Clinical Impression: CMC arthritis, Pain, wrist, Inflammatory arthritis Print Language Print Language: Slovak Discharge ED Provider: Fiona Miranda General Adult HPI General Chief complaint: PAIN Stated complaint: left arm pain, left arm swelling Time Seen by Provider: 06/10/24 07:24 Mode of Arrival: Ambulatory Source of Information: Patient Limitations: No Limitations Description of Symptoms (Recalled from ER Triage Doc. by RN): PT C/O LEFT WRIST PAIN WITHOUT INJURY. PT C/O SWELLING TO WRIST, NO REDNESS. REPORTS HX OF CELLULITIS AT SAME SITE History of Present Illness HPI narrative: Patient is a 53-year-old female presenting today with left wrist and thumb pain. She has an extensive history over the last 6 months of similar related issues. This is the third time she has been to the emergency department for this. The first time she was transferred to [facility] ultimately went to the operating room for with concern for septic CMC arthritis/synovitis/myositis and ultimately was found to not have any purulence. She had an MRI that was concerning for possible cellulitis and they treated her for such. She had another presentation to our emergency department she was ultimately transferred to [facility] again at that time they did not take her to the operating room and she was again treated for cellulitis. However the patient also claims that she has had intermittent symptoms in her feet particularly in her MTP joints. She had a hospitalization at [facility] during this time as well for her foot they tried to do an arthrocentesis of her ankle were unsuccessful and no crystal analysis has been done and no history of rheumatoid conditions or gout definitively have been made. She presents today with worsening wrist forearm and thumb pain along the CMC on the radial aspect of the wrist and forearm as well. She states that this is very similar to when she had cellulitis in the past. However she denies any erythema fevers chills etc. Related Data Home Medications ?Medication ?Instructions ?Recorded ?Confirmed buprenorphine 8 mg-naloxone 2 mg 2 tab sublingual DAILY pain mgmt 03/17/22 05/21/24 sublingual tablet losartan 25 mg tablet 25 mg PO DAILY 02/02/23 05/21/24 diclofenac sodium 1 % topical gel topical 04/17/24 05/21/24 Previous Rx's ?Medication ?Instructions ?Recorded albuterol sulfate 90 mcg/actuation 4 inh inhalation Q4H PRN shortness 12/03/23 aerosol inhaler of breath or wheezing #8.5 grams spironolactone 100 mg tablet 50 mg (1/2 x 100 mg) PO DAILY #90 12/04/23 tabs torsemide 100 mg tablet 50 mg (1/2 x 100 mg) PO DAILY #12/04/23 tabs ergocalciferol (vitamin D2) 1,250 50,000 unit PO QWEEK 90 days #14 03/16/24 mcg (50,000 unit) capsule caps fluoxetine 40 mg capsule See Rx Instructions .Route 04/15/24 .COMPLEX #90 caps omeprazole 40 mg capsule,delayed See Rx Instructions .Route 04/16/24 release .COMPLEX #90 caps medroxyprogesterone 5 mg tablet 2.5 mg (1/2 x 5 mg) PO DAILY #30 04/17/24 (Provera) tabs hydroxyzine pamoate 25 mg capsule 25 mg PO QHS . #90 caps 04/19/24 atorvastatin 20 mg tablet (Lipitor) 20 mg PO DAILY #30 tabs 04/23/24 potassium chloride 20 mEq 20 meq PO DAILY #30 tabs 05/21/24 tablet,extended release(part/cryst) levothyroxine 200 mcg tablet See Rx Instructions .Route 05/24/24 .COMPLEX #30 tabs Allergies Allergy/AdvReac Type Severity Reaction Status Date / Time clarithromycin [From BIAXIN] Allergy Mild Verified 05/21/24 10:12 amoxicillin Allergy Verified 05/21/24 10:12 PFSH PFS Disclaimer: The information contained in this section may have been updated after the patient was seen, as this information can be updated by other users. Medical History Typical angina Depressed Anxiety Restless legs syndrome Insomnia Daytime somnolence Abnormal EKG Unstable angina Dizziness Atypical angina Claudication Chest pain Gastroesophageal reflux disease Preoperative clearance Diastolic dysfunction Vitamin D deficiency Hypothyroidism HLD (hyperlipidemia) HHD (hypertensive heart disease) CAD (coronary artery disease) Neck Pain Radiculopathy affecting upper extremity Surgical History History of laparoscopic cholecystectomy S/P tonsillectomy and adenoidectomy Stented coronary artery H/O lithotripsy History of hip replacement Stented coronary artery Family History Other Family history of COPD (chronic obstructive pulmonary disease) Family history of cancer Family history of myocardial infarction Social History Smoking Status: Never smoker second hand exposure: No alcohol intake: never substance use type: denies use current occupational status: employed and unemployed Travel in the last 8 weeks: None household members: none housing: house 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 current occupational exposures/hazards: No caffeine: Yes Other Medical History Have you received the Flu Vaccine for this season: No Have you received the Pneumonia Vaccine: No ROS Obtained: Yes All systems reviewed & no additional complaints except as documented Physical Exam General General appearance: alert and in no apparent distress Respiratory Respiratory exam: Present normal lung sounds bilaterally Cardiovascular Cardiovascular exam: Present regular rate and normal rhythm Extremities Exam Extremities exam: Present other (Left thumb and CMC joint is extremely tender as well as the radial aspect of the wrist and forearm however no significant soft tissue swelling erythema discoloration. It is warm possibly a little bit out of proportion to the contralateral side) Neurological Exam Neurological exam: Present alert and oriented X3 Medical Decision Making Medical Records Screening: Per USPSTF and CDC recommendations, given the prevalence of disease in our region, it is our hospital?s policy to screen for HIV and viral Hepatitis for all patients aged 18 and over and those with ongoing risk factors. Wolfgang Inquiry Pt receiving controlled substance: No Vital Signs: 06/10/24 06:55 06/10/24 07:30 06/10/24 08:55 Temperature 98.2 F Temperature Source Oral Pulse Rate 87 87 Pulse Rate [Radial] 94 H Respiratory Rate 18 18 Blood Pressure 112/67 120/57 L Blood Pressure [Right Arm] 112/61 Blood Pressure Mean 78 Blood Pressure Mean [Right Arm] 78 Blood Pressure Source [Right Arm] Automatic Cuff Blood Pressure Position [Right Arm] Sitting 02 Sat by Pulse Oximetry 96 94 L 96 Oxygen Delivery Method Room Air Room Air 06/10/24 09:01 06/10/24 09:30 06/10/24 12:17 Temperature Temperature Source Pulse Rate 87 90 83 Pulse Rate [Radial] Respiratory Rate 22 16 18 Blood Pressure 96/76 L 114/61 104/82 L Blood Pressure [Right Arm] Blood Pressure Mean 80 76 87 Blood Pressure Mean [Right Arm] Blood Pressure Source [Right Arm] Blood Pressure Position [Right Arm] 02 Sat by Pulse Oximetry 95 Oxygen Delivery Method 06/10/24 13:08 06/10/24 13:30 06/10/24 14:00 Temperature Temperature Source Pulse Rate 82 76 80 Pulse Rate [Radial] Respiratory Rate 13 16 21 Blood Pressure 126/75 142/117 H 122/100 H Blood Pressure [Right Arm] Blood Pressure Mean Blood Pressure Mean [Right Arm] Blood Pressure Source [Right Arm] Blood Pressure Position [Right Arm] 02 Sat by Pulse Oximetry 97 95 95 Oxygen Delivery Method Room Air Room Air Room Air 06/10/24 14:34 06/10/24 15:01 Temperature Temperature Source Pulse Rate 80 25 L Pulse Rate [Radial] Respiratory Rate Blood Pressure 117/76 101/81 L Blood Pressure [Right Arm] Blood Pressure Mean Blood Pressure Mean [Right Arm] Blood Pressure Source [Right Arm] Blood Pressure Position [Right Arm] 02 Sat by Pulse Oximetry 97 98 Oxygen Delivery Method Room Air Room Air Lab Data Lab results reviewed: Yes I reviewed the patient's lab results. Lab Results 06/10/24 08:00: WBC 8.0, RBC 3.30 L, Hgb 10.8 L, Hct 33.0 L, MCV 99.9 H, MCH 32.6 H, MCHC 32.7, RDW 16.4, Plt Count 472 H, MPV 7.4, Neut % (Auto) 82.2 H, Lymph % (Auto) 10.6, [place] % (Auto) 5.7, Eos % (Auto) 0.9, Baso % (Auto) 0.5, Neut # (Auto) 6.6, Lymph # (Auto) 0.9, [place] # (Auto) 0.5, Eos # (Auto) 0.1, Baso # (Auto) 0.0, ESR > 140 H, Sodium 139, Potassium 2.7 L*, Chloride 91 L, Carbon Dioxide 40 H, Anion Gap 10.7, BUN 12, Creatinine 1.00, Estimated Creat Clear 55, Estimated GFR 58 L, Est GFR ( Amer) 70, Glucose 140 H, Lactate 1.5, Calcium 9.3, Total Bilirubin 1.0, AST 31, ALT 20, Alkaline Phosphatase 101, Total Creatine Kinase 42, C-Reactive Protein 133.7 H, Total Protein 8.9 H, Albumin 4.5, Globulin 4.4 H, Albumin/Globulin Ratio 1.0 L, HIV 1&2 Antibody Rapid Nonreactive 06/10/24 08:00 06/10/24 08:00 Orders (Tests/Meds): ED MEDICATIONS Generic Name Dose Route Start Last Admin Trade Name Freq PRN Reason Stop Dose Admin Vancomycin/PEG/NADA/Lysine/Water 1.75 gm in 350 mls @ 175 mls/hr 06/10/24 15:15 Vancomycin 1.75gm/350ml (Peg) Premix IV 06/10/24 17:14 ONCE ONE Miscellaneous 1 each 06/10/24 15:15 Vancomycin Consult Request NOTAPPLIC 07/10/24 15:14 CONSULT PHARMACY LADONNA Discontinued Medications Generic Name Dose Route Start Last Admin Trade Name Shorty PRN Reason Stop Dose Admin Gadoteridol 6 ml 06/10/24 11:41 06/10/24 11:42 Gadoteridol Inj 10ml Syringe IV 06/10/24 11:42 6 ml ONCE ONE Administration Gadoteridol 20 ml 06/10/24 11:41 06/10/24 11:43 Gadoteridol Inj 20ml Syringe IV 06/10/24 11:42 20 ml ONCE ONE Administration Lactated Ringer's 1,000 mls @ 999 mls/hr 06/10/24 08:00 06/10/24 08:07 Lactated Ringer's 1000 Ml Bag IV 06/10/24 09:00 999 mls/hr .Q1H1M LADONNA Administration Potassium Chloride/Water 100 mls @ 100 mls/hr 06/10/24 09:15 06/10/24 13:05 Potassium Chloride 10meq/100ml Ivpb IV 06/10/24 12:14 100 mls/hr Q1H LADONNA Administration Ketorolac Tromethamine 15 mg 06/10/24 09:55 06/10/24 09:59 Ketorolac 30mg/Ml Vial IV 06/10/24 09:56 15 mg ONCE ONE Administration Morphine Sulfate 4 mg 06/10/24 07:51 06/10/24 08:07 Morphine 4mg/Ml Syringe IV 06/10/24 07:52 4 mg ONCE ONE Administration Morphine Sulfate 4 mg 06/10/24 12:19 06/10/24 12:25 Morphine 4mg/Ml Syringe IV 06/10/24 12:20 4 mg ONCE ONE Administration Ondansetron HCl 4 mg 06/10/24 07:51 06/10/24 08:07 Ondansetron 4mg/2ml Vial IV 06/10/24 07:52 4 mg ONCE ONE Administration Potassium Chloride 40 meq 06/10/24 09:01 06/10/24 09:06 Potassium Chloride 20meq Tab PO 06/10/24 09:02 40 meq ONCE ONE Administration Prednisone 60 mg 06/10/24 15:11 Prednisone 20mg Tab PO 06/10/24 15:12 ONCE ONE Sodium Chloride 10 ml 06/10/24 11:41 06/10/24 11:42 Sodium Chloride 0.9% 10ml Syr (Rad Only) IV 06/10/24 11:42 10 ml ONCE ONE Administration ORDERS Category Date Time Status Forearm XR left 2 views [XR forearm LT 2V] Stat Exams 06/10/24 07:51 Completed Hand XR left minimum 3 views [XR hand LT min 3V] Stat Exams 06/10/24 07:51 Completed POCUS Point of Care (ER Only) Stat Exams 06/10/24 07:42 Completed Wrist XR left minimum 3 views [XR wrist LT min 3V] Stat Exams 06/10/24 07:51 Completed CBC w/Auto Diff [Complete Blood Count Auto Diff] Stat Lab 06/10/24 08:00 Completed CK [Creatine Kinase] Stat Lab 06/10/24 08:00 Completed CMP [Comprehensive Metabolic Panel] Stat Lab 06/10/24 08:00 Completed CRP [C-Reactive Protein] Stat Lab 06/10/24 08:00 Completed ESR [Erythrocyte Sedimentation Rate] Stat Lab 06/10/24 08:00 Completed HIV (1&2) Antibody Rapid Stat Lab 06/10/24 08:00 Completed Hep C Ab with Reflex to RNA Stat Lab 06/10/24 08:00 Received Lactic Acid Stat Lab 06/10/24 08:00 Completed Blood Culture Stat Micro 06/10/24 08:00 Received Medical Decision Narrative: 53-year-old with above history and physical. She has severe and extreme tenderness even with light touch over the dorsal aspect and radial aspect of her left thumb wrist and forearm. With gross examination no objective abnormalities are noted. It is mildly warm out of her portion to the other side and with her history I am concerned she has a chronic condition at this point. Clinically this is not consistent with cellulitis. Incidentally in the past she had an MRI that was concerning for some soft tissue thickening and questionable cellulitis and she was treated with antibiotics with improvement in it while that remains on the differential this is certainly not a classic presentation especially with the recurrence. I am more concerned about a rheumatologic condition or something such as gout. X-rays inflammatory markers basic workup including workup for septic joint have been initiated. Reassessment patient's inflammatory markers were severely elevated x-ray was performed I personally interpreted which shows no acute fractures or dislocation but did show chronic inflammatory changes around the CMC joint. Given her severe amount of pain also the desire to not transfer her for surgical intervention as she already had surgical intervention for this which did not show infection in the past we opted, me and Dr. Blanco, to get an outpatient MRI for further evaluation this was performed patient was placed in ED observation status. Dr. Vasquez and I personally reviewed the images we are awaiting radiology read which they have told us will happen sometime this evening. There are some inflammatory changes around the CMC joint as well as the DRUJ with some effusions clinically with neither 1 of us believe that this is infectious however with her history of improvement with antibiotics we will give IV vancomycin and give prednisone in addition to pain control. Dr. Blanco feels and so to why that it would be best for her not to be transferred right now and to be treated with IV antibiotics steroids and pain control until she has symptomatic resolution at which point she can follow-up with outpatient rheumatology. Dr. Blanco is immediately available for an I&D of the joint itself if needed. And he will be following the case. Procedures Miscellaneous Procedure Procedure Performed: Limited soft tissue ultrasound Indication: Soft tissue pain Identified structures: Location: Structures along the dorsal and radial aspect of the left thumb wrist and forearm Findings: No evidence of any cobblestoning soft tissue fluid collection or fluid within the structures associated with tendons along the thumb no evidence of any large joint fluid collection in the wrist Impression: Normal soft tissue ultrasound of the thumb wrist and forearm Images were saved to permanent archive The study was technically adequate Soft Tissue CPT Codes: CPT Neck: 83416-29 CPT Upper extremity: 91838-39 CPT Axilla: 22468-60 CPT Chest wall: 98092-20 CPT Breast: 30397-72-IH/LT (complete), 21393-83-NH/LT (limited), CPT Upper Back: 57234-22 CPT Lower Back: 87936-04 CPT Abdominal Wall: 96413-74 CPT Pelvic Wall: 69926-40 CPT Lower Extremity: 51898-47 CPT Other Soft Tissue: 96818-02 This study was performed by me, and I personally interpreted all images/videos. Based on my clinical judgement, these images were added and did not necessitate further imaging. Critical Care Critical Care Time Critical Care Time: No
--- NOTE | 2024-06-10 08:23 | PC.NURSE ---
portable xray at bedside
[2024-06-10 08:27] LABS: Basophils % 0.5 % (0.1-2.0); Eosinophils # 0.1 K/mm3 (0.0-0.4); Eosinophils % 0.9 % (0.1-12.0); Hemoglobin 10.8 g/dL (12.2-16.2); Lymphocytes # 0.9 K/mm3 (0.7-4.5); Lymphocytes % 10.6 % (10-50); Mean Corpuscular HGB Conc 32.7 g/dL (31.8-35.4); Mean Corpuscular Hemoglobin 32.6 pg (27.0-31.2); Mean Corpuscular Volume 99.9 fl (81-99); Mean Platelet Volume 7.4 fl (7.4-10.4); Monocytes # 0.5 K/mm3 (0.1-1.0); Monocytes % 5.7 % (1.7-9.3); Neutrophils # 6.6 K/mm3 (1.8-7.8); Neutrophils % 82.2 % (37.0-80.0); Platelet Count 472 K/mm3 (142-424); Red Cell Distribution Width 16.4 % (11.5-17.5)
[2024-06-10 08:36] LABS: Alanine Aminotransferase 20 U/L (12-78); Albumin Level 4.5 g/dl (3.5-5.0); Alkaline Phosphatase 101 U/L (38-126); Anion Gap 10.7 mEq/L (5-15); Aspartate Amino Transferase 31 U/L (14-36); Blood Urea Nitrogen 12 mg/dl (7-17); Calcium 9.3 mg/dl (8.4-10.2); Carbon Dioxide 40 mmol/L (22.0-30.0); Chloride 91 mmol/L (98-107); Creatine Kinase 42 U/L (30-135); Creatinine Clearance Estimated 55 mL/min (50-200); Estimated Glomerular Filt Rate 58 ml/min (>60); GFR (African American) 70 ML/MIN (>60); Globulin 4.4 g/dL (1.3-3.2); Glucose 140 mg/dl (74-100); Lactic Acid 1.5 mmol/L (0.7-2.1); Sodium 139 mmol/L (136-145); Total Protein,Serum 8.9 g/dl (6.3-8.2)
[2024-06-10 08:41] LABS: C-Reactive Protein 133.7 mg/L (0-4)
[2024-06-10 08:56] LABS: Potassium 2.7 mmoL/L (3.5-5.1)
[2024-06-10 09:01] LABS: Erythrocyte Sedimentation Rate > 140 mm/hr (0-30)
[2024-06-10] MEDS: KCl 10mEq/100ml 100 ML 100 MEQ IV ×3 (09:06→13:05)
[2024-06-10] MEDS: POTASSIUM CHLORIDE 20MEQ TAB 40 MEQ PO (09:06)
--- NOTE | 2024-06-10 09:12 | MR_ITS ---
PROCEDURE INFORMATION: Exam: MR Left Upper Extremity Other Than Joint Without and With Contrast, Forearm. Exam date and time: 06/10/2024 10:46 AM Age: 53 years old Clinical indication: Pain; Lower or forearm; Left; Additional info: Cocnern for infection; Mid forearm to hand please. Pain from midforearm to hand TECHNIQUE: Imaging protocol: Magnetic resonance imaging of the left upper extremity other than joint without and with contrast. Exam focused on the forearm. Contrast material: PROHANCE; Contrast volume: 26 ml; Contrast route: IV; COMPARISON: CR XR FOREARM LT 2V 06/10/2024 8:17 AM FINDINGS: Bones/joints: Current study performed with wide [id number] to include majority of the forearm, wrist and portions of the metacarpals. This significantly limits detail in the hand and wrist which will be reported separate study. No focal abnormality in visualized portion of the forearm. The elbow is excluded here. Soft tissues: Unremarkable. IMPRESSION: 1. Current study performed with wide [id number] to include majority of the forearm, wrist and portions of the metacarpals. This significantly limits detail in the hand and wrist which will be reported separate study. 2. No focal abnormality in visualized portion of the forearm. The elbow is excluded here.
--- NOTE | 2024-06-10 09:22 | MR_ITS ---
PROCEDURE INFORMATION: Exam: MR Left Upper Extremity Other Than Joint Without and With Contrast; Hand Exam date and time: 06/10/2024 10:43 AM Age: 53 years old Clinical indication: Pain; Hand; Left; Additional info: Concern for infection. TECHNIQUE: Imaging protocol: MR of the left upper extremity without and with contrast. Exam focused on the hand. Contrast material: PROHANCE; Contrast volume: 26 ml; Contrast route: IV; COMPARISON: CR XR HAND LT MIN 3V 06/10/2024 8:17 AM FINDINGS: Bones/joints: Study includes hand and wrist. Moderate osteoarthritis most evident 1st carpometacarpal articulation. In addition there are areas of small discrete erosive changes in the ulnar styloid, the carpus, base of the 1st metacarpal which may represent a superimposed erosive arthropathy. Mild flexion deformity at the PIP of the ring finger. Flexor and extensor tendons appear intact. There is an effusion in the distal radioulnar articulation. Additional effusion at 1st carpometacarpal articulation. If there is clinical suspicion of potential septic joints, diagnostic aspiration of fluid would be recommended. No acute fracture. There is some nonspecific marrow edema base of the 1st metacarpal and of the adjacent trapezium. Collateral ligaments of digits: Unremarkable. No evidence of tear. Flexor compartment tendons: See Bones/joints finding. Extensor compartment tendons: Unremarkable. No evidence of tear. Soft tissues: Unremarkable. IMPRESSION: 1. Moderate osteoarthritis most evident 1st carpometacarpal articulation. In addition there are areas of small discrete erosive changes in the ulnar styloid, the carpus, base of the 1st metacarpal which may represent a superimposed erosive arthropathy. 2. There is an effusion in the distal radioulnar articulation. Additional effusion at 1st carpometacarpal articulation. If there is clinical suspicion of potential septic joints, diagnostic aspiration of fluid would be recommended. 3. No acute fracture. There is some nonspecific marrow edema and enhancement base of the 1st metacarpal and of the adjacent trapezium.
--- NOTE | 2024-06-10 09:30 | PC.NURSE ---
PT PLACED IN GOWN
[2024-06-10] MEDS: KETOROLAC 30MG/ML VIAL 15 MG IV (09:59)
--- NOTE | 2024-06-10 10:13 | PC.NURSE ---
pt transported to mri
[2024-06-10] MEDS: GADOTERIDOL INJ 10ML SYRINGE 6 ML IV (11:42)
[2024-06-10] MEDS: SODIUM CHLORIDE 0.9% 10ML SYR (RAD ONLY) 10 ML IV (11:42)
[2024-06-10] MEDS: GADOTERIDOL INJ 20ML SYRINGE 20 ML IV (11:43)
[2024-06-10 14:28] LABS: HIV (1&2) Antibody Rapid NONREACTIVE (NONREACTIVE)
--- NOTE | 2024-06-10 14:56 | PC.NURSE ---
dr li and dr montaño at bedside
--- NOTE | 2024-06-10 15:09 | PC.NURSE ---
dr li speaking with hospitalist
--- NOTE | 2024-06-10 15:23 | PC.NURSE ---
milk house worker notified of admission
[2024-06-10] MEDS: predniSONE 20MG TAB 60 MG PO (15:25)
[2024-06-10] MEDS: VANCOMYCIN/WATER FOR INJ (PEG) 1.75 GM/350 ML PIGGYBACK IV (15:25)
[2024-06-10] MEDS: VANCOMYCIN CONSULT REQUEST 1 EACH NOTAPPLIC ×2 (15:26→20:25)
--- NOTE | 2024-06-10 15:53 | HMH.PHAINT1 ---
Pharmacy Intervention Comments: MEDICATION RECONCILIATION COMPLETED ON PATIENT USING EXTERNAL FILL HISTORY FROM PHARMACY, LIST FROM PCP OFFICE, AND AWA REPORT. -RED BRUSHD
--- NOTE | 2024-06-10 16:02 | PC.NURSE ---
called report to ivory bocanegra
--- NOTE | 2024-06-10 16:19 | PC.NURSE ---
arrived by w/c from ED
[2024-06-10] MEDS: KETOROLAC 30MG/ML VIAL 30 MG IM (17:33)
--- NOTE | 2024-06-10 18:38 | P.HP_ITS ---
History of Present Illness *Admission Date: 06/10/24 *Reason for visit:: Intractable pain, left wrist/hand pain *History of present illness: Lesia Doran is a 53-year-old female with a medical history significant for CAD s/p stents, hypertension, hypothyroidism, anxiety/depression, GERD who presents to the ED with worsening left hand/wrist pain. This is the third time she has been to the emergency department for this. The first time she was transferred to [facility] and ultimately went to the operating room for with concern for septic CMC arthritis/synovitis/myositis and ultimately was found to not have any purulence. She had an MRI that was concerning for possible c ellulitis and they treated her for such. She had another presentation to our emergency department she was ultimately transferred to [facility] again at that time they did not take her to the operating room and she was again treated for cellulitis. However the patient also claims that she has had intermittent symptoms in her feet particularly in her MTP joints. She had a hospitalization at [facility] during this time as well for her foot they tried to do an arthrocentesis of her ankle were unsuccessful and no crystal analysis has been done and no history of rheumatoid conditions or gout definitively have been made. She presents today with worsening wrist forearm and thumb pain along the CMC on the radial aspect of the wrist and forearm as well. She states that this is very similar to when she had cellulitis in the past. However she denies any erythema fevers chills etc. workup in the ED significant for WBC 8, potassium 2.7, ESR greater than 140, CRP 133.7. Left hand MRI suggestive of osteoarthritis, erosive arthropathy, multiple joint effusions. Orthopedic surgery was consulted by the ED who stated that they would be able to perform arthrocentesis if needed, but does not look like she needs it at this time. Case discussed with ED provider and decision was made to admit patient for intractable pain, possible septic joint versus uncontrolled inflammatory joint. [facility] Disclaimer: The information contained in this section may have been updated after the patient was seen, as this information can be updated by other users. Medical History GERD (gastroesophageal reflux disease) Asthma IBS (irritable bowel syndrome) Typical angina Depressed Anxiety Restless legs syndrome Insomnia Daytime somnolence Abnormal EKG Unstable angina Dizziness Atypical angina Claudication Chest pain Gastroesophageal reflux disease Preoperative clearance Diastolic dysfunction Vitamin D deficiency Hypothyroidism HLD (hyperlipidemia) HHD (hypertensive heart disease) CAD (coronary artery disease) Neck Pain Radiculopathy affecting upper extremity Surgical History History of laparoscopic cholecystectomy S/P tonsillectomy and adenoidectomy Stented coronary artery H/O lithotripsy History of hip replacement Stented coronary artery Family History Other Family history of COPD (chronic obstructive pulmonary disease) Family history of cancer Family history of myocardial infarction Social History (Updated 06/10/24 @ 16:43 by Fadia Martinez, WARREN) Smoking Status: Never smoker second hand exposure: No alcohol intake: never substance use type: denies use current occupational status: employed and unemployed Travel in the last 8 weeks: None household members: none housing: house 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 current occupational exposures/hazards: No caffeine: Yes Other Medical History Have you received the Flu Vaccine for this season: No Have you received the Pneumonia Vaccine: No Meds Home Medications and Allergies Home Medications ?Medication ?Instructions ?Recorded ?Confirmed ?Type buprenorphine 8 mg-naloxone 2 mg 2 tab sublingual DAILY 03/17/22 06/10/24 History sublingual tablet losartan 25 mg tablet 25 mg PO DAILY 02/02/23 06/10/24 History medroxyprogesterone 5 mg tablet 2.5 mg (1/2 x 5 mg) PO DAILY #30 04/17/24 06/10/24 Rx (Provera) tabs atorvastatin 20 mg tablet (Lipitor) 20 mg PO DAILY #30 tabs 04/23/24 06/10/24 Rx potassium chloride 20 mEq 20 meq PO DAILY #30 tabs 05/21/24 06/10/24 Rx tablet,extended release(part/cryst) ergocalciferol (vitamin D2) 1,250 50,000 unit PO WEEKLY 06/10/24 06/10/24 History mcg (50,000 unit) capsule fluoxetine 40 mg capsule 80 mg PO DAILY 06/10/24 06/10/24 History hydroxyzine pamoate 25 mg capsule 25 mg PO HSP PRN Insomnia 06/10/24 06/10/24 History levothyroxine 200 mcg tablet 200 mcg PO DAILY 06/10/24 06/10/24 History omeprazole 40 mg capsule,delayed 40 mg PO DAILY 06/10/24 06/10/24 History release spironolactone 100 mg tablet 50 mg PO DAILY 06/10/24 06/10/24 History torsemide 100 mg tablet 50 mg PO DAILY 06/10/24 06/10/24 History New Prescriptions to Start Prescriptions: Allergies Allergy/AdvReac Type Severity Reaction Status Date / Time clarithromycin [From AXIN] Allergy Mild Verified 05/21/24 10:12 amoxicillin Allergy Verified 05/21/24 10:12 Exam Data for Last 24 hours Vital signs and Labs for Last 24 Hours: Temp Pulse Resp BP Pulse Ox O2 Del Method 98.0 F 97 H 18 123/74 100 Room Air 06/10/24 16:04 06/10/24 16:04 06/10/24 16:04 06/10/24 16:04 06/10/24 16:00 06/10/24 17:00 Laboratory Results - last 24 hr 06/10/24 08:00: WBC 8.0, RBC 3.30 L, Hgb 10.8 L, Hct 33.0 L, MCV 99.9 H, MCH 32.6 H, MCHC 32.7, RDW 16.4, Plt Count 472 H, MPV 7.4, Neut % (Auto) 82.2 H, Lymph % (Auto) 10.6, [place] % (Auto) 5.7, Eos % (Auto) 0.9, Baso % (Auto) 0.5, Neut # (Auto) 6.6, Lymph # (Auto) 0.9, [place] # (Auto) 0.5, Eos # (Auto) 0.1, Baso # (Auto) 0.0, ESR > 140 H, Sodium 139, Potassium 2.7 L*, Chloride 91 L, Carbon Dioxide 40 H, Anion Gap 10.7, BUN 12, Creatinine 1.00, Estimated Creat Clear 55, Estimated GFR 58 L, Est GFR ( Amer) 70, Glucose 140 H, Lactate 1.5, Calcium 9.3, Total Bilirubin 1.0, AST 31, ALT 20, Alkaline Phosphatase 101, Total Creatine Kinase 42, C-Reactive Protein 133.7 H, Total Protein 8.9 H, Albumin 4.5, Globulin 4.4 H, Albumin/Globulin Ratio 1.0 L, HIV 1&2 Antibody Rapid Nonreactive I & O for Last 24 hours: Intake & Output 06/07/24 06/08/24 06/09/24 06/10/24 23:59 23:59 23:59 23:59 Weight 124.086 kg Constitutional Constitutional: no acute distress *Routine HEENT Exam Head: Present normocephalic Eye: Present EOMI and PERRL ENT: Present mucous membranes moist *Routine Neck Exam Neck: Present supple; Absent lymphadenopathy *Routine Respiratory Exam Respiratory: Present CTA bilaterally *Routine Cardiovascular Exam Cardiovascular: Present RRR *Routine Abdominal Exam Abdominal: Present soft and normoactive bowel sounds; Absent tenderness *Routine Rectal Exam Rectal:: deferred *Routine Genitalia Exam Genitalia:: deferred *Routine Extremities Exam Extremities: Absent cyanosis, clubbing or edema Comments: Tenderness to palpation over left radial ulnar joints, base of the fourth CMC. Mild swelling. no overt erythema. *Routine Skin Exam Skin: Present warm; Absent rash *Routine Neurological Exam Neurological: Present alert and oriented X3 Assessment and Plan *Assessment and plan (1) Inflammatory arthritis: Status: Acute Category: Medical Code(s): M19.90 - Unspecified osteoarthritis, unspecified site (2) Pain, wrist: Status: Acute Category: Medical Code(s): M25.539 - Pain in unspecified wrist (3) CAD (coronary artery disease): Status: Chronic Qualifiers: Coronary Disease-Associated Artery/Lesion type: [place] artery [place] vs. transplanted heart: [place] heart Associated angina: without angina Qualified Code(s): I25.10 - Atherosclerotic heart disease of [place] coronary artery without angina pectoris Category: Medical Code(s): I25.10 - Atherosclerotic heart disease of [place] coronary artery without angina pectoris Plan Lesia Doran is a 53-year-old female with a medical history significant for CAD s/p stents, hypertension, hypothyroidism, anxiety/depression, GERD who presents to the ED with worsening left hand/wrist pain. This is the third time she has been to the emergency department for this. The first time she was transferred to [facility] and ultimately went to the operating room for with concern for septic CMC arthritis/synovitis/myositis and ultimately was found to not have any purulence. She had an MRI that was concerning for possible cellulitis and they treated her for such. She had another presentation to our emergency department she was ultimately transferred to [facility] again at that time they did not take her to the operating room and she was again treated for cellulitis. However the patient also claims that she has had intermittent symptoms in her feet particularly in her MTP joints. She had a hospitalization at [facility] during this time as well for her foot they tried to do an arthrocentesis of her ankle were unsuccessful and no crystal analysis has been done and no history of rheumatoid conditions or gout definitively have been made. She presents today with worsening wrist forearm and thumb pain along the CMC on the radial aspect of the wrist and forearm as well. She states that this is very similar to when she had cellulitis in the past. However she denies any erythema fevers chills etc. workup in the ED significant for WBC 8, potassium 2.7, ESR greater than 140, CRP 133.7. Left hand MRI suggestive of osteoarthritis, erosive arthropathy, multiple joint effusions. Orthopedic surgery was consulted by the ED who stated that they would be able to perform arthrocentesis if needed, but does not look like she needs it at this time. Case discussed with ED provider and decision was made to admit patient for intractable pain, possible septic joint versus uncontrolled inflammatory joint. #Possible septic joint versus autoimmune/inflammatory joint #Acute on chronic left wrist, hand intractable pain ? Unfortunately, patient has had numerous episodes of severe left hand pain in t he past 6 months, and apparently about 16 visits to alone. ? Previous workup did not definitively show an infectious joint, and autoimmune versus inflammatory workup is not known at this time. ? Will request records from [facility]. ? Most of patient's pain today is at the ulnocarpal, radiocarpal, fourth CMC joints. ? An MRI shows osteoarthritis of the first CMC joint with erosive changes. Also notes effusions and distal radial ulnar joints, first CMC joint. ? Initial CRP 133.7, ESR greater than 140. ? Though, WBC normal 8. No fevers, tachycardia. ? At this time, there does not seem to be an overt septic joint but cannot be definitively ruled out at this time. ? Presentation may be more likely related to autoimmune/inflammatory exacerbation. ? Plan to review outside records from for this presumed workup. Otherwise, obtain autoimmune and inflammatory workup here. ? IV vancomycin, cefepime. Can be discontinued if septic joint is less likely. ? Prednisone 40 mg daily. ? Orthopedic surgery consulted, following along. Appreciate recommendations. ? Follow-up morning CRP, ESR, uric acid levels. ? Pain control with Tylenol, Toradol, Percocet. Chronic medical problems: #CAD ? Aspirin, statin. #Hypertension ? Resume home medications once appropriate for BP #Hypothyroidism ? Resumed home levothyroxine 200 mcg ? Follow-up morning TSH. #High anxiety/depression ? Resumed home fluoxetine 80 mg #Opioid use disorder ? Resumed home Suboxone Full code DVT prophylaxis: Lovenox 40
[2024-06-10] MEDS: HYDROCODONE/APAP 5/325 MG TABLET 2 TAB PO (18:50)
[2024-06-10] MEDS: PANTOPRAZOLE 40MG TABLET 40 MG PO (20:30)
[2024-06-10] MEDS: CEFEPIME HCL 1 GM in 0.9 % SODIUM CHLORIDE 50 ML IV (20:30)
[2024-06-10] MEDS: OXYCODONE 5MG W/APAP 325MG TABLET 2 EACH PO (22:25)
--- NOTE | 2024-06-10 22:27 | PC.NURSE ---
Gave patient one tablet of percocet 5/325 mg per first new order at 21:35. Patient did not report any relief with her left arm pain and still rated it as a level 9. At this time (22:25), patient was advanced to a second tablet of percocet 5/325 mg per second new order. Will reevaluate patient's pain in MAR reassessment at 22:55.
[2024-06-11] MEDS: VANCOMYCIN/WATER FOR INJ (PEG) 1.25 GM/250 ML PIGGYBACK IV (02:47)
[2024-06-11] MEDS: OXYCODONE 5MG W/APAP 325MG TABLET 2 EACH PO ×4 (03:45→20:28)
--- NOTE | 2024-06-11 03:46 | PC.NURSE ---
Gave patient one tablet of percocet 5/325 mg per first new order at 02:55. Patient did not report much relief with her left arm pain and still rated it as a level 8. At this time (03:45), patient was advanced to a second tablet of percocet 5/325 mg per second new order. Will reevaluate patient's pain in MAR reassessment at 04:15. Patient reported that the ice pack (given to her between intervals of percocet administrations this shift) has helped her the most with relieving her pain.
[2024-06-11 04:00] VITALS: BP 122/75; PULSE 70; RESP 16; TEMP 36.6; O2SAT 96; BMI 46.0
--- NOTE | 2024-06-11 04:46 | PC.NURSE ---
Patient is alert and oriented x4. Patient was observed to be awake throughout most of the night. Patient has had complaints of consistent left arm pain and was treated accordingly (see prior notes). [place] was discontinued, and percocet was added this shift. Patient reported that she has not been able to tell any difference in her pain after any pain medication administration she has received during her stay. She stated that the ice pack has helped slightly. She has received her scheduled medications and IV antibiotics per OCT. Upon auscultation, her lung sounds were clear and her bowel sounds were active. Vital signs have been stable this shift. Patient has been getting up and ambulating to the bathroom independently; she tolerates ambulation well. She was given a ham sandwich with hoyos, a bag of baked Lay's chips, and a Dr Pepper for a bedtime snack. Patient has been NPO since midnight; however, Zulema TORRES reported to me around 04:00 that the patient was taking sips of water at the bedside. Patient was previously explained to during med pass (21:00) that she will not be able to have anything else to eat or drink after midnight due to her orthopedic surgery consult in the morning. Patient denied that she knew of this and refused her water cup to be taken from the bedside. However, patient has not been given anything else drink or food-desir since midnight; this has been endorsed to her by staff. She does not have any further complaints. She is currently sitting up in bed using her personal phone. No acute changes noted thus far. Call light within reach.
[2024-06-11 06:47] LABS: Basophils % 0.3 % (0.1-2.0); Eosinophils % 0.1 % (0.1-12.0); Hematocrit 29.2 % (37.0-47.0); Lymphocytes # 0.5 K/mm3 (0.7-4.5); Lymphocytes % 5.7 % (10-50); Mean Corpuscular HGB Conc 32.6 g/dL (31.8-35.4); Mean Corpuscular Hemoglobin 32.5 pg (27.0-31.2); Mean Corpuscular Volume 99.7 fl (81-99); Mean Platelet Volume 7.7 fl (7.4-10.4); Monocytes # 0.5 K/mm3 (0.1-1.0); Monocytes % 4.8 % (1.7-9.3); Neutrophils # 8.5 K/mm3 (1.8-7.8); Neutrophils % 89.2 % (37.0-80.0); Platelet Count 388 K/mm3 (142-424); Red Blood Count 2.93 M/mm3 (4.20-5.40); Red Cell Distribution Width 16.1 % (11.5-17.5); White Blood Count 9.6 K/mm3 (4.8-10.8)
[2024-06-11 06:52] LABS: MANUAL DIFFERENTIAL MANUAL DIFFERENTIAL (MANUAL DIFF)
[2024-06-11 06:59] LABS: Hemoglobin 9.5 g/dL (12.2-16.2)
[2024-06-11 07:01] LABS: Alanine Aminotransferase 18 U/L (12-78); Albumin Level 3.8 g/dl (3.5-5.0); Albumin/Globulin Ratio 1.2 (1.1-1.8); Alkaline Phosphatase 73 U/L (38-126); Anion Gap 12.8 mEq/L (5-15); Aspartate Amino Transferase 22 U/L (14-36); Bilirubin,Total 0.6 mg/dl (0.2-1.3); Blood Urea Nitrogen 26 mg/dl (7-17); Calcium 8.6 mg/dl (8.4-10.2); Carbon Dioxide 33 mmol/L (22.0-30.0); Chloride 95 mmol/L (98-107); Creatinine Clearance Estimated 26 mL/min (50-200); Estimated Glomerular Filt Rate 24 ml/min (>60); GFR (African American) 30 ML/MIN (>60); Globulin 3.3 g/dL (1.3-3.2); Glucose 174 mg/dl (74-100); Potassium 3.8 mmoL/L (3.5-5.1); Sodium 137 mmol/L (136-145); Total Protein,Serum 7.1 g/dl (6.3-8.2)
[2024-06-11 07:02] LABS: Uric Acid 11.1 mg/dl (2.5-6.2)
[2024-06-11 07:12] LABS: C-Reactive Protein 92.7 mg/L (0-4)
[2024-06-11 07:31] LABS: Thyroid Stimulating Hormone 4.39 uIU/mL (0.465-4.68)
[2024-06-11 08:00] VITALS: BP 126/68; PULSE 75; RESP 17; TEMP 36.5; O2SAT 94
--- NOTE | 2024-06-11 08:05 | P.CONPHA_ITS ---
Pharmacy Consult Date: 06/11/24 Time: 08:06 Referring provider: DR AGUIRRE Reason for Consult:: VANCOMYCIN DOSING CONSULT Allergies Allergy/AdvReac Type Severity Reaction Status Date / Time clarithromycin [From BIAXIN] Allergy Mild Verified 05/21/24 10:12 amoxicillin Allergy Verified 05/21/24 10:12 Home Medications ?Medication ?Instructions ?Recorded ?Confirmed ?Type buprenorphine 8 mg-naloxone 2 mg 2 tab sublingual DAILY 03/17/22 06/10/24 History sublingual tablet losartan 25 mg tablet 25 mg PO DAILY 02/02/23 06/10/24 History medroxyprogesterone 5 mg tablet 2.5 mg (1/2 x 5 mg) PO DAILY #30 04/17/24 06/10/24 Rx (Provera) tabs atorvastatin 20 mg tablet (Lipitor) 20 mg PO DAILY #30 tabs 04/23/24 06/10/24 Rx potassium chloride 20 mEq 20 meq PO DAILY #30 tabs 05/21/24 06/10/24 Rx tablet,extended release(part/cryst) ergocalciferol (vitamin D2) 1,250 50,000 unit PO WEEKLY 06/10/24 06/10/24 History mcg (50,000 unit) capsule fluoxetine 40 mg capsule 80 mg PO DAILY 06/10/24 06/10/24 History hydroxyzine pamoate 25 mg capsule 25 mg PO HSP PRN Insomnia 06/10/24 06/10/24 History levothyroxine 200 mcg tablet 200 mcg PO DAILY 06/10/24 06/10/24 History omeprazole 40 mg capsule,delayed 40 mg PO DAILY 06/10/24 06/10/24 History release spironolactone 100 mg tablet 50 mg PO DAILY 06/10/24 06/10/24 History torsemide 100 mg tablet 50 mg PO DAILY 06/10/24 06/10/24 History New Prescriptions to Start Prescriptions: Height: 1.65 m Weight: 125.464 kg Laboratory Results:: Laboratory Results - last 24 hr 06/10/24 08:00: WBC 8.0, RBC 3.30 L, Hgb 10.8 L, Hct 33.0 L, MCV 99.9 H, MCH 32.6 H, MCHC 32.7, RDW 16.4, Plt Count 472 H, MPV 7.4, Neut % (Auto) 82.2 H, Lymph % (Auto) 10.6, [place] % (Auto) 5.7, Eos % (Auto) 0.9, Baso % (Auto) 0.5, Neut # (Auto) 6.6, Lymph # (Auto) 0.9, [place] # (Auto) 0.5, Eos # (Auto) 0.1, Baso # (Auto) 0.0, ESR > 140 H, Sodium 139, Potassium 2.7 L*, Chloride 91 L, Carbon Dioxide 40 H, Anion Gap 10.7, BUN 12, Creatinine 1.00, Estimated Creat Clear 55, Estimated GFR 58 L, Est GFR ( Amer) 70, Glucose 140 H, Lactate 1.5, Calcium 9.3, Total Bilirubin 1.0, AST 31, ALT 20, Alkaline Phosphatase 101, Total Creatine Kinase 42, C-Reactive Protein 133.7 H, Total Protein 8.9 H, Albumin 4.5, Globulin 4.4 H, Albumin/Globulin Ratio 1.0 L, HIV 1&2 Antibody Rapid Nonreactive 06/11/24 05:48: WBC 9.6, RBC 2.93 L, Hgb 9.5 L D, Hct 29.2 L, MCV 99.7 H, MCH 32.5 H, MCHC 32.6, RDW 16.1, Plt Count 388, MPV 7.7, Neut % (Auto) 89.2 H, Lymph % (Auto) 5.7 L, [place] % (Auto) 4.8, Eos % (Auto) 0.1, Baso % (Auto) 0.3, Neut # (Auto) 8.5 H, Lymph # (Auto) 0.5 L, [place] # (Auto) 0.5, Eos # (Auto) 0.0, Baso # (Auto) 0.0, Sodium 137, Potassium 3.8 D, Chloride 95 L, Carbon Dioxide 33 H, Anion Gap 12.8, BUN 26 H D, Creatinine 2.10 H D, Estimated Creat Clear 26, Estimated GFR 24 L, Est GFR ( Amer) 30 L D, Glucose 174 H D, Uric Acid 11.1 H, Calcium 8.6, Total Bilirubin 0.6, AST 22 D, ALT 18, Alkaline Phosphatase 73, C-Reactive Protein 92.7 H D, Total Protein 7.1, Albumin 3.8 D, Globulin 3.3 H, Albumin/Globulin Ratio 1.2, TSH 4.39 Medical History: Medical History (Updated 06/10/24 @ 16:43 by Fadia Martinez RN) GERD (gastroesophageal reflux disease) Asthma IBS (irritable bowel syndrome) Typical angina Depressed Anxiety Restless legs syndrome Insomnia Daytime somnolence Abnormal EKG Unstable angina Dizziness Atypical angina Claudication Chest pain Gastroesophageal reflux disease Preoperative clearance Diastolic dysfunction Vitamin D deficiency Hypothyroidism HLD (hyperlipidemia) HHD (hypertensive heart disease) CAD (coronary artery disease) Neck Pain Radiculopathy affecting upper extremity Assessment and Plan Assessment and plan all Dx Assessment and Plan for all problems:: Pharmacokinetic dosing service Objective: Age: 53 yo Serum creatinine: 2.1 mg/dL Height: 65.0 Inches Weight (kg): 125.464 Diagnosis: SEPSIS/CELLULITIS Assessment: IBW (kg): 57.00 Dosing wt(kg): 84.4 Estimated Creatinine clearance (ml/min): 27.2 CRCL method: Cockcroft and Gault using ibw(default). Drug selected: Vancomycin Loading dose (mg): 1750 MG Vd (liters): 67.5 (factor used: 0.8 L/kg) Saroj (hr-1): 0.027 Half life (hrs): 25.67 CLvanco=?? 1.823 L/hr Recommended dose: 1500 mg Interval: 36 hrs Infusion time (hrs): 2.0 Predicted peak (mcg/mL): 34.8 Predicted trough (mcg/mL): 13.90 Adjusted body weight was selected for vancomycin dosing. To switch back, select the total body weight option above. Recommendations: Give Vancomycin 1500 mg q 36 hrs with an expected Cpeak of 34.8 mcg/ml and an expected Ctrough of 13.90 mcg/ml AUC 0-24 /DAYSI Data: DAYSI 0.5 mcg/mL:?? AUC/DAYSI:? 1097.1 DAYSI 1.0 mcg/mL:?? AUC/DAYSI:? 548.5 --------- DAYSI 1.5 mcg/mL:?? AUC/DAYSI:? 365.7 DAYSI 2.0 mcg/mL:?? AUC/DAYSI:? 274.3 Thank you for the consult
[2024-06-11 08:25] LABS: Lymphocytes % 10 % (10-50); Monocytes % 1 % (2-9); Neutrophils % 89 % (42-76); Platelet Estimate Normal; RBC Morphology Normal; Total Cells Counted 100
[2024-06-11 08:37] LABS: Erythrocyte Sedimentation Rate > 140 mm/hr (0-30)
[2024-06-11] MEDS: MEDROXYPROGESTERONE ACETATE 2.5MG TABLET 2.5 MG PO (08:41)
[2024-06-11] MEDS: CEFEPIME HCL 1 GM in 0.9 % SODIUM CHLORIDE 50 ML IV (08:41)
[2024-06-11] MEDS: LEVOTHYROXINE 100MCG (0.1MG) TAB 200 MCG PO (08:41)
[2024-06-11] MEDS: BUPRENORPHINE/NALOXONE 8MG/2MG ODT 2 EACH SL (08:42)
[2024-06-11] MEDS: LACTATED RINGERS 1000ML 1,000 ML 200 ML IV (08:42)
[2024-06-11] MEDS: predniSONE 20MG TAB 40 MG PO (08:42)
[2024-06-11] MEDS: FLUOXETINE 20MG CAPSULE 80 MG PO ×2 (08:42→20:28)
[2024-06-11] MEDS: ASPIRIN EC 81MG TABLET 81 MG PO (08:42)
[2024-06-11 08:59] LABS: HCV Ab Non Reactive (Non Reactive)
[2024-06-11] MEDS: ENOXAPARIN 30MG/0.3ML SYRINGE 30 MG SUBCUT (09:00)
--- NOTE | 2024-06-11 09:24 | EXP.ACUTE.PN ---
Subjective *Date: 06/11/24 *Time: 14:46 Interval history: Patient feeling somewhat better today. Hand and wrist less swollen. Able to move hand without difficulty. Labs returned positive for elevated uric acid of 11. Findings and symptoms most consistent with gout. Stable on room air. Tolerating p.o. intake. Medical Exam Vital signs and Labs for Last 24 Hours: Vital Signs Temp Pulse Pulse Resp BP BP Pulse Ox 06/11/24 08:00 97.7 F 75 17 126/68 94 L 06/11/24 07:00 06/11/24 05:00 06/11/24 04:00 97.9 F 70 16 122/75 96 06/11/24 03:00 06/11/24 01:00 06/10/24 23:00 06/10/24 21:00 06/10/24 20:00 82 18 93 L 06/10/24 20:00 98.6 F 82 18 137/77 93 L 06/10/24 18:57 06/10/24 17:30 06/10/24 17:00 06/10/24 16:04 98.0 F 97 H 18 123/74 06/10/24 16:00 98.3 F 75 15 156/85 H 100 06/10/24 16:00 97 H 18 123/74 96 06/10/24 15:32 77 16 140/73 92 L 06/10/24 15:01 75 101/81 L 98 06/10/24 14:34 80 117/76 97 06/10/24 14:00 80 21 122/100 H 95 06/10/24 13:30 76 16 142/117 H 95 06/10/24 13:08 82 13 126/75 97 06/10/24 12:17 83 18 104/82 L 95 06/10/24 09:30 90 16 114/61 O2 Del Method 06/11/24 08:00 Room Air 06/11/24 07:00 Room Air 06/11/24 05:00 Room Air 06/11/24 04:00 Room Air 06/11/24 03:00 Room Air 06/11/24 01:00 Room Air 06/10/24 23:00 Room Air 06/10/24 21:00 Room Air 06/10/24 20:00 Room Air 06/10/24 20:00 Room Air 06/10/24 18:57 Room Air 06/10/24 17:30 Room Air 06/10/24 17:00 Room Air 06/10/24 16:04 Room Air 06/10/24 16:00 Room Air 06/10/24 16:00 06/10/24 15:32 06/10/24 15:01 Room Air 06/10/24 14:34 Room Air 06/10/24 14:00 Room Air 06/10/24 13:30 Room Air 06/10/24 13:08 Room Air 06/10/24 12:17 06/10/24 09:30 Intake and Output 06/10/24 06/11/24 06/11/24 23:59 07:59 15:59 Intake Total 0 / 494 494 / 494 Output Total 0 / 0 Balance 0 / 494 494 / 494 Intake: Intake, Oral Amount 0 / 444 444 / 444 Infusion Intake 50 / 50 Cefepime HCl 1 gm In 0.9 % 50 / 50 Sodium Chloride 50 ml @ 100 mls /hr IV Q12H [facility] Rx#:[id number] Output: Output, Urine Amount 0 / 0 Other: Number of Unmeasured Voids 1 Weight 124.086 kg 125.464 kg 125.464 kg Patient Weight 06/11/24 23:59 Weight 125.464 kg Laboratory Results - last 24 hr 06/10/24 08:00: Hepatitis C Antibody Non reactive, HIV 1&2 Antibody Rapid Nonreactive 06/11/24 05:48: WBC 9.6, RBC 2.93 L, Hgb 9.5 L D, Hct 29.2 L, MCV 99.7 H, MCH 32.5 H, MCHC 32.6, RDW 16.1, Plt Count 388, MPV 7.7, Neut % (Auto) 89.2 H, Lymph % (Auto) 5.7 L, [place] % (Auto) 4.8, Eos % (Auto) 0.1, Baso % (Auto) 0.3, Neut # (Auto) 8.5 H, Lymph # (Auto) 0.5 L, [place] # (Auto) 0.5, Eos # (Auto) 0.0, Baso # (Auto) 0.0, Total Counted 100, Neutrophils % (Manual) 89 H, Lymphocytes % (Manual) 10, Monocytes % (Manual) 1 L, Platelet Estimate Normal, RBC Morphology Normal, ESR > 140 H, Sodium 137, Potassium 3.8 D, Chloride 95 L, Carbon Dioxide 33 H, Anion Gap 12.8, BUN 26 H D, Creatinine 2.10 H D, Estimated Creat Clear 26, Estimated GFR 24 L, Est GFR ( Amer) 30 L D, Glucose 174 H D, Uric Acid 11.1 H, Calcium 8.6, Total Bilirubin 0.6, AST 22 D, ALT 18, Alkaline Phosphatase 73, C-Reactive Protein 92.7 H D, Total Protein 7.1, Albumin 3.8 D, Globulin 3.3 H, Albumin/Globulin Ratio 1.2, TSH 4.39 I & O for Labs for Last 24 Hours: Intake & Output 06/08/24 06/09/24 06/10/24 06/11/24 23:59 23:59 23:59 23:59 Intake Total 0 / 494 494 / 494 Output Total 0 / 0 Balance 0 / 494 494 / 494 Weight 124.086 kg 125.464 kg Microbiology Reports for the Last 24 Hours: Microbiology 06/10/24 08:00 Blood Blood Culture - Preliminary NO GROWTH AFTER 24 HOURS 06/10/24 08:00 Blood Blood Culture - Preliminary NO GROWTH AFTER 24 HOURS Constitutional: Present no acute distress, morbidly obese, chronically ill appearing and cooperative Head: Present atraumatic and normocephalic ENT: Present normal exam Respiratory: Present normal respiratory effort; Absent rhonchi, wheezes or crackles Cardiac: Present Reg Rate and Rhythm GI: Present soft and normal bowel sounds; Absent distention or tenderness Extremities: Present full ROM and tenderness (Left wrist); Absent edema Skin: Present intact; Absent erythema Neuro: Present Grossly Intact, alert, awake, oriented x 3 and moves all extremities Assessment and Plan *Assessment and plan (1) Gout: Status: Acute Category: Medical Code(s): M10.9 - Gout, unspecified (2) Inflammatory arthritis: Status: Acute Category: Medical Code(s): M19.90 - Unspecified osteoarthritis, unspecified site (3) Pain, wrist: Status: Acute Category: Medical Code(s): M25.539 - Pain in unspecified wrist (4) CAD (coronary artery disease): Status: Chronic Qualifiers: Associated angina: without angina Coronary Disease-Associated Artery/Lesion type: [place] artery [place] vs. transplanted heart: [place] heart Qualified Code(s): I25.10 - Atherosclerotic heart disease of [place] coronary artery without angina pectoris Category: Medical Code(s): I25.10 - Atherosclerotic heart disease of [place] coronary artery without angina pectoris Zoë Doran is a 53-year-old female with a medical history significant for CAD s/p stents, hypertension, hypothyroidism, anxiety/depression, GERD who presents to the ED with worsening left hand/wrist pain. This is the third time she has been to the emergency department for this. The first time she was transferred to [facility] and ultimately went to the operating room for with concern for septic CMC arthritis/synovitis/myositis and ultimately was found to not have any purulence. She had an MRI that was concerning for possible cellulitis and they treated her for such. She had another presentation to our emergency department she was ultimately transferred to [facility] again at that time they did not take her to the operating room and she was again treated for cellulitis. However the patient also claims that she has had intermittent symptoms in her feet particularly in her MTP joints. She had a hospitalization at [facility] during this time as well for her foot they tried to do an arthrocentesis of her ankle were unsuccessful and no crystal analysis has been done and no history of rheumatoid conditions or gout definitively have been made. She presents today with worsening wrist forearm and thumb pain along the CMC on the radial aspect of the wrist and forearm as well. She states that this is very similar to when she had cellulitis in the past. However she denies any erythema fevers chills etc. workup in the ED significant for WBC 8, potassium 2.7, ESR greater than 140, CRP 133.7. Left hand MRI suggestive of osteoarthritis, erosive arthropathy, multiple joint effusions. Orthopedic surgery was consulted by the ED who stated that they would be able to perform arthrocentesis if needed, but does not look like she needs it at this time. Case discussed with ED provider and decision was made to admit patient for intractable pain, possible septic joint versus uncontrolled inflammatory joint. # Gouty arthritis #Possible septic joint versus autoimmune/inflammatory joint #Acute on chronic left wrist, hand intractable pain ? Unfortunately, patient has had numerous episodes of severe left hand pain in the past 6 months, and apparently about 16 visits to alone. ? Previous workup did not definitively show an infectious joint, and autoimmune versus inflammatory workup is not known at this time. Records from [facility] obtained showing uric acid of 10.8. -Labs this morning with uric acid of 11.1. CRP elevated at 92, ESR greater than 140. Pain improving however with current anti-inflammatory and antibiotic regimen. - discussed case with orthopedics this morning, low concern for infectious arthritis. Most concern for inflammatory process versus gout. -Discontinue Toradol in the setting of DINORAH. -Initiate colchicine 1.2 mg once followed by 0.6 mg an hour later if still having pain. 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 Also notes effusions and distal radial ulnar joints, first CMC joint. - Discontinue antibiotics. Continue prednisone 40 mg daily -Repeat labs ordered for the morning including CBC, CMP, CRP, ESR ? Pain control with Tylenol, colchicine, Percocet, Suboxone -MINA panel ordered for the morning to workup inflammatory arthritis. Chronic medical problems: #CAD: Aspirin, statin. #Hypertension: Holding ARB in the setting of DINORAH. #Hypothyroidism: Resumed home levothyroxine 200 mcg, TSH normal at 4.4 #High anxiety/depression: Resumed home fluoxetine 80 mg #Opioid use disorder: Continue home Suboxone 8/2 mg tablet 2 tablets daily. Monitor for toxicity in conjunction with pain meds above. Full code DVT prophylaxis: Lovenox 40 Regular diet
--- NOTE | 2024-06-11 09:47 | EXP.ORTH.CON ---
History of Present Illness *Admission Date: 06/10/24 *History of present illness: Lesia Doran is a 53-year-old female with a medical history significant for CAD s/p stents, hypertension, hypothyroidism, anxiety/depression, GERD who presents to the ED with worsening left hand/wrist pain. This is the third time she has been to the emergency department for this. The first time she was transferred to [facility] and ultimately went to the operating room for with concern for septic CMC arthritis/synovitis/myositis and ultimately was found to not have any purulence. She had an MRI that was concerning for possible cellulitis and they treated her for such. She had another presentation to our emergency department she was ultimately transferred to [facility] again at that time they did not take her to the operating room and she was again treated for cellulitis. However the patient also claims that she has had intermittent symptoms in her feet particularly in her MTP joints. She had a hospitalization at [facility] during this time as well for her foot they tried to do an arthrocentesis of her ankle were unsuccessful and no crystal analysis has been done and no history of rheumatoid conditions or gout definitively have been made. She presents today with worsening wrist forearm and thumb pain along the CMC on the radial aspect of the wrist and forearm as well. She states that this is very similar to when she had cellulitis in the past. However she denies any erythema fevers chills etc. workup in the ED significant for WBC 8, potassium 2.7, ESR greater than 140, CRP 133.7. Left hand MRI suggestive of osteoarthritis, erosive arthropathy, multiple joint effusions. I consulted on the patient in the emergency department to confirm I will be available for arthrocentesis or any surgical intervention if necessary however pattern looked inflammatory in nature and noninfective. Today the patient feels better she is able to move her thumb much better still has some residual pain at her wrist overall 50% better compared to yesterday. [facility] Disclaimer: The information contained in this section may have been updated after the patient was seen, as this information can be updated by other users. Medical History (Updated 06/11/24 @ 09:49 by Nico Blanco DO) GERD (gastroesophageal reflux disease) Asthma IBS (irritable bowel syndrome) Typical angina Depressed Anxiety Restless legs syndrome Insomnia Daytime somnolence Abnormal EKG Unstable angina Dizziness Atypical angina Claudication Chest pain Gastroesophageal reflux disease Preoperative clearance Diastolic dysfunction Vitamin D deficiency Hypothyroidism HLD (hyperlipidemia) HHD (hypertensive heart disease) CAD (coronary artery disease) Neck Pain Radiculopathy affecting upper extremity Surgical History History of laparoscopic cholecystectomy S/P tonsillectomy and adenoidectomy Stented coronary artery H/O lithotripsy History of hip replacement Stented coronary artery Family History Other Family history of COPD (chronic obstructive pulmonary disease) Family history of cancer Family history of myocardial infarction Social History (Updated 06/10/24 @ 16:43 by Fadia Martinez, RN) Smoking Status: Never smoker second hand exposure: No alcohol intake: never substance use type: denies use current occupational status: employed and unemployed Travel in the last 8 weeks: None household members: none housing: house 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 current occupational exposures/hazards: No caffeine: Yes Meds Home Medications and Allergies Home Medications ?Medication ?Instructions ?Recorded ?Confirmed ?Type buprenorphine 8 mg-naloxone 2 mg 2 tab sublingual DAILY 03/17/22 06/10/24 History sublingual tablet losartan 25 mg tablet 25 mg PO DAILY 02/02/23 06/10/24 History medroxyprogesterone 5 mg tablet 2.5 mg (1/2 x 5 mg) PO DAILY #30 04/17/24 06/10/24 Rx (Provera) tabs atorvastatin 20 mg tablet (Lipitor) 20 mg PO DAILY #30 tabs 04/23/24 06/10/24 Rx potassium chloride 20 mEq 20 meq PO DAILY #30 tabs 05/21/24 06/10/24 Rx tablet,extended release(part/cryst) ergocalciferol (vitamin D2) 1,250 50,000 unit PO WEEKLY 06/10/24 06/10/24 History mcg (50,000 unit) capsule fluoxetine 40 mg capsule 80 mg PO DAILY 06/10/24 06/10/24 History hydroxyzine pamoate 25 mg capsule 25 mg PO HSP PRN Insomnia 06/10/24 06/10/24 History levothyroxine 200 mcg tablet 200 mcg PO DAILY 06/10/24 06/10/24 History omeprazole 40 mg capsule,delayed 40 mg PO DAILY 06/10/24 06/10/24 History release spironolactone 100 mg tablet 50 mg PO DAILY 06/10/24 06/10/24 History torsemide 100 mg tablet 50 mg PO DAILY 06/10/24 06/10/24 History New Prescriptions to Start Prescriptions: Allergies Allergy/AdvReac Type Severity Reaction Status Date / Time clarithromycin [From BIAXIN] Allergy Mild Verified 05/21/24 10:12 amoxicillin Allergy Verified 05/21/24 10:12 Ortho Exam (Inpt) Vital signs and Labs for Last 24 Hours: Temp Pulse Resp BP Pulse Ox O2 Del Method 97.7 F 75 17 126/68 94 L Room Air 06/11/24 08:00 06/11/24 08:00 06/11/24 08:00 06/11/24 08:00 06/11/24 08:00 06/11/24 08:00 Laboratory Results - last 24 hr 06/10/24 08:00: Hepatitis C Antibody Non reactive, HIV 1&2 Antibody Rapid Nonreactive 06/11/24 05:48: WBC 9.6, RBC 2.93 L, Hgb 9.5 L D, Hct 29.2 L, MCV 99.7 H, MCH 32.5 H, MCHC 32.6, RDW 16.1, Plt Count 388, MPV 7.7, Neut % (Auto) 89.2 H, Lymph % (Auto) 5.7 L, [place] % (Auto) 4.8, Eos % (Auto) 0.1, Baso % (Auto) 0.3, Neut # (Auto) 8.5 H, Lymph # (Auto) 0.5 L, [place] # (Auto) 0.5, Eos # (Auto) 0.0, Baso # (Auto) 0.0, Total Counted 100, Neutrophils % (Manual) 89 H, Lymphocytes % (Manual) 10, Monocytes % (Manual) 1 L, Platelet Estimate Normal, RBC Morphology Normal, ESR > 140 H, Sodium 137, Potassium 3.8 D, Chloride 95 L, Carbon Dioxide 33 H, Anion Gap 12.8, BUN 26 H D, Creatinine 2.10 H D, Estimated Creat Clear 26, Estimated GFR 24 L, Est GFR ( Amer) 30 L D, Glucose 174 H D, Uric Acid 11.1 H, Calcium 8.6, Total Bilirubin 0.6, AST 22 D, ALT 18, Alkaline Phosphatase 73, C-Reactive Protein 92.7 H D, Total Protein 7.1, Albumin 3.8 D, Globulin 3.3 H, Albumin/Globulin Ratio 1.2, TSH 4.39 I & O for Labs for Last 24 Hours: Intake & Output 06/08/24 06/09/24 06/10/24 06/11/24 23:59 23:59 23:59 23:59 Intake Total 0 / 494 494 / 494 Output Total 0 / 0 Balance 0 / 494 494 / 494 Weight 273 lb 9 oz 276 lb 9.6 oz Microbiology Reports for the Last 24 Hours: Microbiology 06/10/24 08:00 Blood Blood Culture - Preliminary NO GROWTH AFTER 24 HOURS 06/10/24 08:00 Blood Blood Culture - Preliminary NO GROWTH AFTER 24 HOURS Additional findings:: Left wrist: There is no redness no erythema no ecchymosis. She is tender to palpation at the DRUJ she has pain with grinding at the first CMC joint there is no increased warmth swelling slightly improved compared to yesterday. Results Labs 06/11/24 05:48 06/11/24 05:48 Labs: Abnormal lab results 06/11/24 Range/Units 05:48 RBC 2.93 L (4.20-5.40) M/mm3 Hgb 9.5 L D (12.2-16.2) g/dL Hct 29.2 L (37.0-47.0) % MCV 99.7 H (81-99) fl MCH 32.5 H (27.0-31.2) pg Neut % (Auto) 89.2 H (37.0-80.0) % Lymph % (Auto) 5.7 L (10-50) % Neut # (Auto) 8.5 H (1.8-7.8) K/mm3 Lymph # (Auto) 0.5 L (0.7-4.5) K/mm3 Neutrophils % (Manual) 89 H (42-76) % Monocytes % (Manual) 1 L (2-9) % ESR > 140 H (0-30) mm/hr Chloride 95 L (98-107) mmol/L Carbon Dioxide 33 H (22.0-30.0) mmol/L BUN 26 H D (7-17) mg/dl Creatinine 2.10 H D (0.52-1.04) mg/dl Estimated GFR 24 L (>60) ml/min Est GFR ( Amer) 30 L D (>60) ML/MIN Glucose 174 H D (74-100) mg/dl Uric Acid 11.1 H (2.5-6.2) mg/dl C-Reactive Protein 92.7 H D (0-4) mg/L Globulin 3.3 H (1.3-3.2) g/dL H & H 06/10/24 06/11/24 Range/Units 08:00 05:48 Hgb 10.8 L 9.5 L D (12.2-16.2) g/dL Hct 33.0 L 29.2 L (37.0-47.0) % All other labs normal. Assessment and Plan *Assessment and plan (1) Inflammatory arthritis: Status: Acute Category: Medical Code(s): M19.90 - Unspecified osteoarthritis, unspecified site (2) Gout: Status: Acute Qualifiers: Gout site: hand Gout etiology: unspecified cause Chronicity: acute Laterality: left Qualified Code(s): M10.9 - Gout, unspecified Category: Medical Code(s): M10.9 - Gout, unspecified (3) Pain, wrist: Status: Acute Qualifiers: Laterality: left Qualified Code(s): M25.532 - Pain in left wrist Category: Medical Code(s): M25.539 - Pain in unspecified wrist (4) CMC arthritis: Status: Acute Category: Medical Code(s): M19.049 - Primary osteoarthritis, unspecified hand Plan Clinically her picture is improved. She did take a dose of prednisone. Discussed with Dr. Hester in regards to acute gouty flare. Her uric acid was significantly increased and higher than the previous baseline. Treat acute gouty flareup colchicine and start maintenance doses of allopurinol. No clinical suspicion currently for infective arthropathy. Inflammatory arthropathy nature of the MRI findings worrisome for inflammatory arthritis as well. We discussed autoimmune possible etiologies. This workup pending. No current need for surgical intervention.
[2024-06-11] MEDS: COLCHICINE 0.6MG TABLET 1.2 MG PO (11:05)
[2024-06-11] MEDS: ALLOPURINOL 100MG TABLET 100 MG PO (11:06)
[2024-06-11] MEDS: COLCHICINE 0.6MG TABLET 0.6 MG PO (12:02)
[2024-06-11 14:57] LABS: Anion Gap 12.6 mEq/L (5-15); Blood Urea Nitrogen 30 mg/dl (7-17); Calcium 8.6 mg/dl (8.4-10.2); Carbon Dioxide 31 mmol/L (22.0-30.0); Chloride 96 mmol/L (98-107); Creatinine Clearance Estimated 25 mL/min (50-200); Estimated Glomerular Filt Rate 23 ml/min (>60); GFR (African American) 28 ML/MIN (>60); Glucose 281 mg/dl (74-100); Potassium 3.6 mmoL/L (3.5-5.1); Sodium 136 mmol/L (136-145)
[2024-06-11 16:00] VITALS: BP 127/70; PULSE 80; RESP 18; TEMP 36.7; O2SAT 95
[2024-06-11 20:00] VITALS: BP 115/67; PULSE 70; RESP 18; TEMP 37; O2SAT 96
[2024-06-11] MEDS: ATORVASTATIN 20MG TABLET 20 MG PO (20:28)
[2024-06-11] MEDS: PANTOPRAZOLE 40MG TABLET 40 MG PO (20:28)
[2024-06-11] MEDS: 0.9 % SODIUM CHLORIDE 1000ML 1,000 ML 100 ML IV (20:52)
[2024-06-11 22:27] LABS: Chloride 95 mmol/L (98-107); Potassium 3.6 mmoL/L (3.5-5.1); Sodium 137 mmol/L (136-145)
[2024-06-11 22:30] LABS: Anion Gap 14.6 mEq/L (5-15); Blood Urea Nitrogen 33 mg/dl (7-17); Carbon Dioxide 31 mmol/L (22.0-30.0); Creatinine Clearance Estimated 25 mL/min (50-200); Estimated Glomerular Filt Rate 23 ml/min (>60); GFR (African American) 28 ML/MIN (>60)
[2024-06-11 22:31] LABS: Calcium 8.9 mg/dl (8.4-10.2); Glucose 217 mg/dl (74-100)
[2024-06-12] MEDS: OXYCODONE 5MG W/APAP 325MG TABLET 2 EACH PO ×3 (02:30→11:01)
[2024-06-12 03:00] LABS: Vancomycin,Trough 17.4 ug/mL (5.0-10.0)
[2024-06-12 04:00] VITALS: BP 126/70; PULSE 64; RESP 18; TEMP 36.4; O2SAT 97; BMI 47.2
--- NOTE | 2024-06-12 04:56 | PC.NURSE ---
Patient is alert and oriented x4. Patient was observed to be awake throughout most of the night. Patient continues to complain of consistent left arm pain this shift and has been treated accordingly with 2 tablets of percocet 5/325mg per MAR. However, she did report that she is feeling a little bit better tonight. She has received her scheduled medications per MAR. Upon auscultation, her lung sounds were clear and her bowel sounds were active. Vital signs have been stable this shift. Patient has been getting up and ambulating to the bathroom independently; she tolerates ambulation well. Patient reports passing a lot of gas but has yet to have a bowel movement during her stay. Patient was given an abundance of fresh ice water this shift and currently has normal saline infusing at 100 mL/hr. No acute changes noted thus far. Call light within reach.
[2024-06-12] MEDS: 0.9 % SODIUM CHLORIDE 1000ML 1,000 ML 100 ML IV (06:45)
[2024-06-12] MEDS: LEVOTHYROXINE 100MCG (0.1MG) TAB 200 MCG PO (06:46)
[2024-06-12 07:07] LABS: Basophils % 0.2 % (0.1-2.0); Eosinophils % 0.2 % (0.1-12.0); Hematocrit 29.8 % (37.0-47.0); Hemoglobin 9.5 g/dL (12.2-16.2); Lymphocytes % 9.4 % (10-50); Mean Corpuscular Hemoglobin 32.6 pg (27.0-31.2); Mean Platelet Volume 7.7 fl (7.4-10.4); Monocytes # 0.5 K/mm3 (0.1-1.0); Monocytes % 4.7 % (1.7-9.3); Neutrophils # 9.4 K/mm3 (1.8-7.8); Neutrophils % 85.5 % (37.0-80.0); Platelet Count 440 K/mm3 (142-424); Red Blood Count 2.92 M/mm3 (4.20-5.40)
[2024-06-12 07:11] LABS: MANUAL DIFFERENTIAL MANUAL DIFFERENTIAL (MANUAL DIFF)
[2024-06-12 07:17] LABS: Chloride 95 mmol/L (98-107); Potassium 3.3 mmoL/L (3.5-5.1); Sodium 136 mmol/L (136-145)
[2024-06-12 07:19] LABS: Blood Urea Nitrogen 37 mg/dl (7-17); Creatinine Clearance Estimated 29 mL/min (50-200); Estimated Glomerular Filt Rate 27 ml/min (>60); GFR (African American) 33 ML/MIN (>60)
[2024-06-12 07:20] LABS: Alanine Aminotransferase 13 U/L (12-78); Albumin/Globulin Ratio 1.1 (1.1-1.8); Alkaline Phosphatase 85 U/L (38-126); Anion Gap 13.3 mEq/L (5-15); Aspartate Amino Transferase 22 U/L (14-36); Bilirubin,Total 0.5 mg/dl (0.2-1.3); Calcium 8.9 mg/dl (8.4-10.2); Carbon Dioxide 31 mmol/L (22.0-30.0); Globulin 3.5 g/dL (1.3-3.2); Glucose 134 mg/dl (74-100); Total Protein,Serum 7.5 g/dl (6.3-8.2)
--- NOTE | 2024-06-12 07:22 | P.DS_ITS ---
General Admission date:: 06/10/24 Discharge date: 06/12/24 HPI HPI HPI: Lesia Doran is a 53-year-old female with a medical history significant for CAD s/p stents, hypertension, hypothyroidism, anxiety/depression, GERD who presents to the ED with worsening left hand/wrist pain. This is the third time she has been to the emergency department for this. The first time she was transferred to [facility] and ultimately went to the operating room for with concern for septic CMC arthritis/synovitis/myositis and ultimately was found to not have any purulence. She had an MRI that was concerning for possible cellulitis and they treated her for such. She had another presentation to our emergency department she was ultimately transferred to [facility] again at that time they did not take her to the operating room and she was again treated for cellulitis. However the patient also claims that she has had intermittent symptoms in her feet particularly in her MTP joints. She had a hospitalization at [facility] during this time as well for her foot they tried to do an arthrocentesis of her ankle were unsuccessful and no crystal analysis has been done and no history of rheumatoid conditions or gout definitively have been made. She presents today with worsening wrist forearm and thumb pain along the CMC on the radial aspect of the wrist and forearm as well. She states that this is very similar to when she had cellulitis in the past. However she denies any erythema fevers chills etc. workup in the ED significant for WBC 8, potassium 2.7, ESR greater than 140, CRP 133.7. Left hand MRI suggestive of osteoarthritis, erosive arthropathy, multiple joint effusions. I consulted on the patient in the emergency department to confirm I will be available for arthrocentesis or any surgical intervention if necessary however pattern looked inflammatory in nature and noninfective. Today the patient feels better she is able to move her thumb much better still has some residual pain at her wrist overall 50% better compared to yesterday. Hospital Course Hospital Course Hospital Course: Lesia Doran is a 53-year-old female with a medical history significant for CAD s/p stents, hypertension, hypothyroidism, anxiety/depression, GERD who presents to the ED with worsening left hand/wrist pain. This is the third time she has been to the emergency department for this. The first time she was transferred to [facility] and ultimately went to the operating room for with concern for septic CMC arthritis/synovitis/myositis and ultimately was found to not have any purulence. She had an MRI that was concerning for possible cellulitis and they treated her for such. She had another presentation to our emergency department she was ultimately transferred to [facility] again at that time they did not take her to the operating room and she was again treated for cellulitis. However the patient also claims that she has had intermittent symptoms in her feet particularly in her MTP joints. She had a hospitalization at [facility] during this time as well for her foot they tried to do an arthrocentesis of her ankle were unsuccessful and no crystal analysis has been done and no history of rheumatoid conditions or gout definiti vely have been made. She presents today with worsening wrist forearm and thumb pain along the CMC on the radial aspect of the wrist and forearm as well. She states that this is very similar to when she had cellulitis in the past. However she denies any erythema fevers chills etc. workup in the ED significant for WBC 8, potassium 2.7, ESR greater than 140, CRP 133.7. Left hand MRI suggestive of osteoarthritis, erosive arthropathy, multiple joint effusions. Orthopedic surgery was consulted by the ED who stated that they would be able to perform arthrocentesis if needed, but does not look like she needs it at this time. Case discussed with ED provider and decision was made to admit patient for intractable pain, possible septic joint versus uncontrolled inflammatory joint. Workup ultimately determined that joint inflammation was secondary to gout. Orthopedics assisted with care. Stable to discharge home with further management of gout and follow-up with orthopedics as an outpatient. Problems addressed as follows: # Gouty arthritis #Possible septic joint versus autoimmune/inflammatory joint, ruled out #Acute on chronic left wrist, hand intractable pain ? Unfortunately, patient has had numerous episodes of severe left hand pain in the past 6 months, and apparently about 16 visits to alone. Previous workup did not definitively show an infectious joint, and autoimmune versus inflammatory workup is not known at this time. Records from [facility] obtained showing uric acid of 10.8. Labs morning of 06/11 with uric acid of 11.1. CRP elevated at 92, ESR greater than 140, showed gradual improvement, down to 61 for CRP on day of discharge. Pain showing improvement with anti-inflammatory regimen. Given findings of uric acid level and drastic improvement with anti- inflammatories, findings most consistent for gout. Discussed case with orthopedics. Low concern for infectious arthritis. Okay to discontinue antibiotics, continue treatment with colchicine and allopurinol. 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 Also notes effusions and distal radial ulnar joints, first CMC joint. - MINA panel ordered and pending at time of discharge To workup inflammatory arthritis. # DINORAH Patient has developed an DINORAH likely secondary to NSAIDs and contrast from imaging. Creatinine peaked at 2.2. Gentle hydration provided. Showed improvement 1.9 by morning of discharge. Baseline approximately 1. Needs repeat labs in 1 to 2 weeks to monitor for normalization Chronic medical problems: #CAD: Aspirin, statin. #Hypertension: Holding ARB in the setting of DINORAH. #Hypothyroidism: Resumed home levothyroxine 200 mcg, TSH normal at 4.4 #High anxiety/depression: Resumed home fluoxetine 80 mg #Opioid use disorder: Continue home Suboxone 8/2 mg tablet 2 tablets daily. Exam Data for Last 24 hours Vital signs and Labs for Last 24 Hours: Temp Pulse Resp BP Pulse Ox O2 Del Method 97.6 F 64 18 126/70 97 Room Air 06/12/24 04:00 06/12/24 04:00 06/12/24 04:00 06/12/24 04:00 06/12/24 04:00 06/12/24 06:50 Laboratory Results - last 24 hr 06/10/24 08:00: Hepatitis C Antibody Non reactive 06/11/24 05:48: Total Counted 100, Neutrophils % (Manual) 89 H, Lymphocytes % (Manual) 10, Monocytes % (Manual) 1 L, Platelet Estimate Normal, RBC Morphology Normal, ESR > 140 H, TSH 4.39 06/11/24 14:08: Sodium 136, Potassium 3.6, Chloride 96 L, Carbon Dioxide 31 H, Anion Gap 12.6, BUN 30 H, Creatinine 2.20 H, Estimated Creat Clear 25, Estimated GFR 23 L, Est GFR ( Amer) 28 L, Glucose 281 H D, Calcium 8.6 06/11/24 22:02: Sodium 137, Potassium 3.6, Chloride 95 L, Carbon Dioxide 31 H, Anion Gap 14.6, BUN 33 H, Creatinine 2.20 H, Estimated Creat Clear 25, Estimated GFR 23 L, Est GFR ( Amer) 28 L, Glucose 217 H D, Calcium 8.9 06/12/24 02:20: Vancomycin Trough 17.4 H 06/12/24 06:11: WBC 11.0 H, RBC 2.92 L, Hgb 9.5 L, Hct 29.8 L, MCV 102.0 H, MCH 32.6 H, MCHC 32.0, RDW 16.0, Plt Count 440 H, MPV 7.7, Neut % (Auto) 85.5 H, Lymph % (Auto) 9.4 L, Wolfe % (Auto) 4.7, Eos % (Auto) 0.2, Baso % (Auto) 0.2, Neut # (Auto) 9.4 H, Lymph # (Auto) 1.0, Wolfe # (Auto) 0.5, Eos # (Auto) 0.0, Baso # (Auto) 0.0, Sodium 136, Potassium 3.3 L, Chloride 95 L, Carbon Dioxide 31 H, Anion Gap 13.3, BUN 37 H, Creatinine 1.90 H, Estimated Creat Clear 29, Estimated GFR 27 L, Est GFR ( Amer) 33 L, Glucose 134 H D, Calcium 8.9, Total Bilirubin 0.5, AST 22, ALT 13 D, Alkaline Phosphatase 85, Total Protein 7.5, Albumin 4.0, Globulin 3.5 H, Albumin/Globulin Ratio 1.1 I & O for Last 24 hours: Intake & Output 06/09/24 06/10/24 06/11/24 06/12/24 23:59 23:59 23:59 23:59 Intake Total 0 / 494 2053 Output Total 0 / 0 0 / 0 0 / 0 Balance 0 494 2053 Weight 124.086 kg 125.464 kg 128.548 kg Microbiology Reports for the Last 24 Hours: Microbiology 06/10/24 08:00 Blood Blood Culture - Preliminary NO GROWTH AFTER 24 HOURS 06/10/24 08:00 Blood Blood Culture - Preliminary NO GROWTH AFTER 24 HOURS Constitutional Constitutional: no acute distress, morbidly obese, chronically ill appearing and cooperative *Routine HEENT Exam Head: Present normocephalic Eye: Present EOMI and PERRL ENT: Present mucous membranes moist *Routine Neck Exam Neck: Present supple; Absent lymphadenopathy *Routine Respiratory Exam Respiratory: Present CTA bilaterally; Absent rhonchi, wheezes or crackles *Routine Cardiovascular Exam Cardiovascular: Present RRR *Routine Abdominal Exam Abdominal: Present soft and normoactive bowel sounds; Absent tenderness *Routine Rectal Exam Patient deferred: visual exam *Routine Exam Patient deferred: external exam *Routine Extremities Exam Extremities: Absent cyanosis, clubbing or edema Comments: Left wrist minimally tender. No longer warm. No erythema. *Routine Skin Exam Skin: Present warm; Absent rash *Routine Neurological Exam Neurological: Present alert, oriented X3 and moving all extremities; Absent altered mental status Results Data Completed and Pending Labs on day of discharge: Labs from last 24 hours 06/12/24 06/12/24 06/11/24 06:11 02:20 22:02 WBC 11.0 H RBC 2.92 L Hgb 9.5 L Hct 29.8 L MCV 102.0 H MCH 32.6 H MCHC 32.0 RDW 16.0 Plt Count 440 H MPV 7.7 Neut % (Auto) 85.5 H Lymph % (Auto) 9.4 L Wolfe % (Auto) 4.7 Eos % (Auto) 0.2 Baso % (Auto) 0.2 Neut # (Auto) 9.4 H Lymph # (Auto) 1.0 Wolfe # (Auto) 0.5 Eos # (Auto) 0.0 Baso # (Auto) 0.0 Total Counted Neutrophils % (Manual) Lymphocytes % (Manual) Monocytes % (Manual) Platelet Estimate RBC Morphology ESR Sodium 136 137 Potassium 3.3 L 3.6 Chloride 95 L 95 L Carbon Dioxide 31 H 31 H Anion Gap 13.3 14.6 BUN 37 H 33 H Creatinine 1.90 H 2.20 H Estimated Creat Clear 29 25 Estimated GFR 27 L 23 L Est GFR ( Amer) 33 L 28 L Glucose 134 H D 217 H D Calcium 8.9 8.9 Total Bilirubin 0.5 AST 22 ALT 13 D Alkaline Phosphatase 85 Total Protein 7.5 Albumin 4.0 Globulin 3.5 H Albumin/Globulin Ratio 1.1 TSH Vancomycin Trough 17.4 H Hepatitis C Antibody 06/11/24 06/11/24 06/10/24 14:08 05:48 08:00 WBC RBC Hgb Hct MCV MCH MCHC RDW Plt Count MPV Neut % (Auto) Lymph % (Auto) Wolfe % (Auto) Eos % (Auto) Baso % (Auto) Neut # (Auto) Lymph # (Auto) Wolfe # (Auto) Eos # (Auto) Baso # (Auto) Total Counted 100 Neutrophils % (Manual) 89 H Lymphocytes % (Manual) 10 Monocytes % (Manual) 1 L Platelet Estimate Normal RBC Morphology Normal ESR > 140 H Sodium 136 Potassium 3.6 Chloride 96 L Carbon Dioxide 31 H Anion Gap 12.6 BUN 30 H Creatinine 2.20 H Estimated Creat Clear 25 Estimated GFR 23 L Est GFR ( Amer) 28 L Glucose 281 H D Calcium 8.6 Total Bilirubin AST ALT Alkaline Phosphatase Total Protein Albumin Globulin Albumin/Globulin Ratio TSH 4.39 Vancomycin Trough Hepatitis C Antibody Non reactive Preliminary micro results at discharge 06/10/24 08:00 Blood Culture - Preliminary Blood NO GROWTH AFTER 24 HOURS 06/10/24 08:00 Blood Culture - Preliminary Blood NO GROWTH AFTER 24 HOURS DS: Diagnosis Discharge Diagnosis (1) Gout: Status: Acute Code(s): M10.9 - Gout, unspecified Qualifiers: Chronicity: acute Gout etiology: unspecified cause Gout site: hand Laterality: left Qualified Code(s): M10.9 - Gout, unspecified (2) Inflammatory arthritis: Status: Acute Code(s): M19.90 - Unspecified osteoarthritis, unspecified site (3) Pain, wrist: Status: Acute Code(s): M25.539 - Pain in unspecified wrist Qualifiers: Laterality: left Qualified Code(s): M25.532 - Pain in left wrist (4) CAD (coronary artery disease): Status: Chronic Code(s): I25.10 - Atherosclerotic heart disease of [place] coronary artery without angina pectoris Qualifiers: Associated angina: without angina Coronary Disease-Associated Artery/Lesion type: [place] artery [place] vs. transplanted heart: [place] heart Qualified Code(s): I25.10 - Atherosclerotic heart disease of [place] coronary artery without angina pectoris Meds Home Medications and Allergies Home Medications ?Medication ?Instructions ?Recorded ?Confirmed ?Type buprenorphine 8 mg-naloxone 2 mg 2 tab sublingual DAILY 03/17/22 06/10/24 History sublingual tablet losartan 25 mg tablet 25 mg PO DAILY 02/02/23 06/10/24 History medroxyprogesterone 5 mg tablet 2.5 mg (1/2 x 5 mg) PO DAILY #30 04/17/24 06/10/24 Rx (Provera) tabs atorvastatin 20 mg tablet (Lipitor) 20 mg PO DAILY #30 tabs 04/23/24 06/10/24 Rx potassium chloride 20 mEq 20 meq PO DAILY #30 tabs 05/21/24 06/10/24 Rx tablet,extended release(part/cryst) ergocalciferol (vitamin D2) 1,250 50,000 unit PO WEEKLY 06/10/24 06/10/24 History mcg (50,000 unit) capsule fluoxetine 40 mg capsule 80 mg PO DAILY 06/10/24 06/10/24 History hydroxyzine pamoate 25 mg capsule 25 mg PO HSP PRN Insomnia 06/10/24 06/10/24 History levothyroxine 200 mcg tablet 200 mcg PO DAILY 06/10/24 06/10/24 History omeprazole 40 mg capsule,delayed 40 mg PO DAILY 06/10/24 06/10/24 History release spironolactone 100 mg tablet 50 mg PO DAILY 06/10/24 06/10/24 History torsemide 100 mg tablet 50 mg PO DAILY 06/10/24 06/10/24 History allopurinol 100 mg tablet 100 mg PO DAILY 30 days #30 tabs 06/12/24 Rx colchicine 0.6 mg tablet 0.6 mg PO DAILY PRN gout pain #30 06/12/24 Rx tabs New Prescriptions to Start Prescriptions: allopjohnnyol Adam Hester colchicine Adam Hester Allergies Allergy/AdvReac Type Severity Reaction Status Date / Time clarithromycin [From BIAXIN] Allergy Mild Verified 05/21/24 10:12 amoxicillin Allergy Verified 05/21/24 10:12 Discharge Plan Disposition Patient Disposition: Home, Self-Care Condition: Good Follow up Plan Follow up with: Janice Fitzpatrick PA [Primary Care Provider] - 06/14/24 10:30 am Nico Blanco DO [Staff Physician] - 06/25/24 9:30 am Prescriptions/Medication Reconciliation: New allopurinol 100 mg Tablet 100 mg PO DAILY 30 Days Qty: 30 0RF colchicine 0.6 mg tablet 0.6 mg PO DAILY PRN (Reason: gout pain) Qty: 30 0RF Continued potassium chloride 20 mEq tablet,ER particles/crystals 20 meq PO DAILY Qty: 30 2RF buprenorphine-naloxone 8-2 mg tablet, sublingual 2 tab SL DAILY medroxyprogesterone [Provera] 5 mg tablet 2.5 mg PO DAILY Qty: 30 6RF atorvastatin [Lipitor] 20 mg tablet 20 mg PO DAILY Qty: 30 2RF fluoxetine 40 mg capsule 80 mg PO DAILY omeprazole 40 mg capsule,delayed release(DR/EC) 40 mg PO DAILY levothyroxine 200 mcg tablet 200 mcg PO DAILY ergocalciferol (vitamin D2) 1,250 mcg (50,000 unit) capsule 50,000 unit PO WEEKLY hydroxyzine pamoate 25 mg capsule 25 mg PO HSP PRN (Reason: Insomnia) Held losartan 25 mg tablet 25 mg PO DAILY Hold Instructions: pending normalization of renal function and follow-up as outpatient spironolactone 100 mg tablet 50 mg PO DAILY Hold Instructions: pending normalization of renal function and follow-up as outpatient torsemide 100 mg tablet 50 mg PO DAILY Hold Instructions: pending normalization of renal function and follow-up as outpatient Problem Reconciliation Problems Reviewed?: Yes Patient Discharge Instructions ACTIVITY: Continue current activity DIET: continue same diet Patient Instructions: DI for Gout Print Language: Thai Providers Primary Care Provider: Janice Fitzpatrick Admit Provider: Colin Canas Attending Provider: Colin Canas
[2024-06-12 07:26] LABS: C-Reactive Protein 61.7 mg/L (0-4)
[2024-06-12 08:00] VITALS: O2SAT 97
[2024-06-12] MEDS: BUPRENORPHINE/NALOXONE 8MG/2MG ODT 2 EACH SL (08:02)
[2024-06-12] MEDS: ASPIRIN EC 81MG TABLET 81 MG PO (08:02)
[2024-06-12] MEDS: POTASSIUM CHLORIDE 20MEQ TAB 40 MEQ PO (08:02)
[2024-06-12] MEDS: predniSONE 20MG TAB 40 MG PO (08:02)
[2024-06-12] MEDS: MEDROXYPROGESTERONE ACETATE 2.5MG TABLET 2.5 MG PO (08:02)
[2024-06-12] MEDS: ALLOPURINOL 100MG TABLET 100 MG PO (08:02)
[2024-06-12] MEDS: ENOXAPARIN 30MG/0.3ML SYRINGE 30 MG SUBCUT (08:03)
[2024-06-12 08:59] LABS: Erythrocyte Sedimentation Rate > 140 mm/hr (0-30)
[2024-06-12 09:23] LABS: Lymphocytes % 22 % (10-50); Macrocytosis 1+; Monocytes % 1 % (2-9); Neutrophils % 77 % (42-76); Total Cells Counted 100
[2024-06-12 09:24] LABS: Platelet Estimate Slight Increase
[2024-06-13 11:17] LABS: Anti-Centromere B Antibodies <0.2 AI (0.0-0.9); Anti-DNA (DS) Ab Qn 1 IU/mL (0-9); Anti-Jo-1 <0.2 AI (0.0-0.9); Anti-Smith Antibody <0.2 AI (0.0-0.9); Antichromatin Antibodies <0.2 AI (0.0-0.9); Antiscleroderma-70 Antibodies <0.2 AI (0.0-0.9); RNP Antibodies <0.2 AI (0.0-0.9); Sjogren's Anti-SS-A <0.2 AI (0.0-0.9); Sjogren's Anti-SS-B <0.2 AI (0.0-0.9)
== END 2024-06-12 11:55 | disposition home or self-care (01) ==
LOC: ER 15:15 → 2ND 16:05
PROVIDERS: Internal Medicine Adolescent Medicine; Admitting Provider Student in an Organized Health Care Education/Training Program; Emergency Provider Student in an Organized Health Care Education/Training Program; PCP Physician Assistant; Visit Provider Student in an Organized Health Care Education/Training Program
DX: M19.042 Primary osteoarthritis, left hand; I25.110 Atherosclerotic heart disease of native coronary artery with unstable angina pectoris; M1A.9XX0 Chronic gout, unspecified, without tophus (tophi); Z79.899 Other long term (current) drug therapy; M25.532 Pain in left wrist; E55.9 Vitamin D deficiency, unspecified; Z95.5 Presence of coronary angioplasty implant and graft; E03.9 Hypothyroidism, unspecified; I10 Essential (primary) hypertension; Z79.891 Long term (current) use of opiate analgesic
CPT/HCPCS: 36415; 73090; 73110; 73130; 73220; 80048; 80053; 80202; 82550; 83605; 84443; 84550; 85007; 85025; 85651; 86140; 86225; 86235; 86803; 87040; 87389; 99285; A9576; G0378; J0574; J0692; J1650; J1885; J2270; J2405; J3480; J7030; J7120

== ENCOUNTER 2024-06-25 10:43 | Outpatient (CLI) | payer OTHER, SELFPAY ==
[2024-06-25 11:20] LABS: Basophils % 0.5 % (0.1-2.0); Eosinophils # 0.1 K/mm3 (0.0-0.4); Eosinophils % 1.6 % (0.1-12.0); Hematocrit 29.5 % (37.0-47.0); Hemoglobin 9.9 g/dL (12.2-16.2); Lymphocytes # 0.7 K/mm3 (0.7-4.5); Lymphocytes % 15.2 % (10-50); Mean Corpuscular HGB Conc 33.5 g/dL (31.8-35.4); Mean Corpuscular Volume 95.6 fl (81-99); Mean Platelet Volume 7.3 fl (7.4-10.4); Monocytes # 0.3 K/mm3 (0.1-1.0); Monocytes % 6.7 % (1.7-9.3); Neutrophils # 3.6 K/mm3 (1.8-7.8); Neutrophils % 75.9 % (37.0-80.0); Platelet Count 338 K/mm3 (142-424); Red Blood Count 3.09 M/mm3 (4.20-5.40); Red Cell Distribution Width 16.2 % (11.5-17.5); White Blood Count 4.8 K/mm3 (4.8-10.8)
[2024-06-25 11:39] LABS: Anion Gap 11.1 mEq/L (5-15); Blood Urea Nitrogen 11 mg/dl (7-17); Carbon Dioxide 34 mmol/L (22.0-30.0); Chloride 98 mmol/L (98-107); Estimated Glomerular Filt Rate 74 ml/min (>60); GFR (African American) 90 ML/MIN (>60); Glucose 109 mg/dl (74-100); Potassium 3.1 mmoL/L (3.5-5.1); Sodium 140 mmol/L (136-145); Uric Acid 6.2 mg/dl (2.5-6.2)
== END 2024-06-25 23:59 | disposition home or self-care (01) ==
LOC: LAB 10:44
PROVIDERS: PCP Physician Assistant; Visit Provider Orthopaedic Surgery
DX: M10.9 Gout, unspecified (principal); M19.90 Unspecified osteoarthritis, unspecified site
CPT/HCPCS: 36415; 80048; 84550; 85025

== ENCOUNTER 2024-09-18 12:11 | Outpatient (CLI) | payer OTHER, SELFPAY ==
--- NOTE | 2024-09-18 12:20 | XR_ITS ---
FINAL REPORT CLINICAL HISTORY: lbp..hip pain FINDINGS: Right hip Three views were obtained. There is no fracture or dislocation. Total joint prosthesis is in anatomic alignment. There are healed fracture deformities of the superior and inferior pubic rami. IMPRESSION: Chronic and postsurgical changes. Reviewed, Interpreted and Dictated by Eligio Underwood MD Transcribed by Humera Marmolejo Authenticated and . [facility]
--- NOTE | 2024-09-18 12:20 | XR_ITS ---
FINAL REPORT CLINICAL HISTORY: LBP..hip pain COMPARISON: 09/11/2021 FINDINGS: Left hip Two views were obtained. There is no fracture or dislocation. There is mild narrowing of the hip joint space. The femoral head demonstrates a normal smooth contour. No soft tissue abnormality is identified. IMPRESSION: Mild changes of osteoarthritis. Reviewed, Interpreted and Dictated by Eligio Underwood MD Transcribed by Humera Marmolejo Authenticated and [facility]
--- NOTE | 2024-09-18 12:20 | XR_ITS ---
FINAL REPORT CLINICAL HISTORY: .LBP...hip pain FINDINGS: LUMBAR SPINE Six views were obtained. There is no acute fracture. There is moderate disc space narrowing at L5-S1. Moderate facet sclerosis is seen in the mid and lower lumbar spine. There is no malalignment. IMPRESSION: Degenerative changes as above. Reviewed, Interpreted and Dictated by Eligio Underwood MD Transcribed by Humera Marmolejo Authenticated and [facility]
== END 2024-09-18 23:59 | disposition home or self-care (01) ==
LOC: RAD 12:15
PROVIDERS: PCP Physician Assistant; Visit Provider Physician Assistant
DX: M54.50 Low back pain, unspecified (principal)
CPT/HCPCS: 72110; 73502

== ENCOUNTER 2024-10-08 11:16 | Observation (INO) | payer OTHER, SELFPAY ==
[2024-10-08] VITALS (13 sets, daily range): BP systolic 100–141; BP diastolic 47–77; PULSE 75–93; RESP 13–20; TEMP 36.5–36.8; O2SAT 96–100; BMI 47.4; BMI 106.7; BMI 48.2
--- NOTE | 2024-10-08 11:43 | ECG_ITS ---
APPROVED REPORT Exam: Resting ECG HR:82 bpm ECG Measurements Heart Rate 82 AXES ME 173 P -6 QRSd 109 QRS -29 QT 288 T 66 QTc 327 Conclusion SINUS RHYTHM WITH OCCASIONAL VENTRICULAR PREMATURE COMPLEXES BORDERLINE LEFT AXIS DEVIATION [QRS AXIS < -20] NONSPECIFIC T-WAVE ABNORMALITY No STEMI Electronically signed by : MARSHA CARNES, 10/09/2024 10:12:50
[2024-10-08 11:56] LABS: Basophils % 0.4 % (0.1-2.0); Eosinophils # 0.1 K/mm3 (0.0-0.4); Eosinophils % 2.2 % (0.1-12.0); Hematocrit 25.7 % (37.0-47.0); Hemoglobin 8.6 g/dL (12.2-16.2); Lymphocytes # 1.2 K/mm3 (0.7-4.5); Lymphocytes % 23.3 % (10-50); Mean Corpuscular HGB Conc 33.5 g/dL (31.8-35.4); Mean Corpuscular Volume 95.5 fl (81-99); Mean Platelet Volume 9.8 fl (7.4-10.4); Monocytes # 0.5 K/mm3 (0.1-1.0); Monocytes % 9.9 % (1.7-9.3); Neutrophils # 3.1 K/mm3 (1.8-7.8); Neutrophils % 63.2 % (37.0-80.0); Platelet Count 224 K/mm3 (142-424); Red Blood Count 2.69 M/mm3 (4.20-5.40); Red Cell Distribution Width 17.5 % (11.5-17.5); White Blood Count 4.9 K/mm3 (4.8-10.8)
--- NOTE | 2024-10-08 12:10 | ED_ITS ---
<Statement entered by Anjali Coelho DO - 10/08/24 14:33> I was consulted by the VILMA, and we discussed the complexity of the problems being addressed. I approved the treatment and management plan for this patient's care in the emergency department, thus performing a substantive portion of the medical decision making. Anjali Coelho DO Discharge Plan Disposition Patient Disposition: Admitted Condition: Serious Chief Complaint: Recheck/Abnormal Lab/Rx Prescriptions Prescriptions: No Action losartan 25 mg tablet 25 mg PO DAILY potassium chloride 20 mEq tablet,ER particles/crystals 20 meq PO DAILY Qty: 30 2RF buprenorphine-naloxone 8-2 mg tablet, sublingual 2 tab SL DAILY medroxyprogesterone [Provera] 5 mg tablet 2.5 mg PO DAILY Qty: 30 6RF atorvastatin [Lipitor] 20 mg tablet 20 mg PO DAILY Qty: 30 2RF spironolactone 100 mg tablet 100 mg PO DAILY Qty: 90 3RF fluoxetine 40 mg capsule 80 mg PO DAILY omeprazole 40 mg capsule,delayed release(DR/EC) 40 mg PO DAILY torsemide 100 mg tablet 50 mg PO DAILY levothyroxine 200 mcg tablet 200 mcg PO DAILY ergocalciferol (vitamin D2) 1,250 mcg (50,000 unit) capsule 50,000 unit PO WEEKLY hydroxyzine pamoate 25 mg capsule 25 mg PO HSP PRN (Reason: Insomnia) allopurinol 100 mg Tablet 100 mg PO DAILY 30 Days Qty: 30 0RF colchicine 0.6 mg tablet 0.6 mg PO DAILY PRN (Reason: gout pain) Qty: 30 0RF Referrals Follow up/Referrals: Janice Fitzpatrick PA [Primary Care Provider] - See instructions Clinical Impressions Clinical Impression: Acute renal failure superimposed on chronic kidney disease, Hypomagnesemia, Elevated brain natriuretic peptide (BNP) level, Hypokalemia Print Language Print Language: Romanian Discharge ED Provider: Anjali Coelho General Adult HPI <ROSIE Ashley - Last Filed: 10/08/24 14:25> General Chief complaint: Recheck/Abnormal Lab/Rx Stated complaint: soa, weakness Time Seen by Provider: 10/08/24 12:09 History of Present Illness HPI narrative: Patient presents at the behest of her primary care provider for low potassium. Patient has a past medical history of CHF coronary artery disease morbid obesity peripheral vascular disease chronic kidney disease hyperlipidemia. She was following up with her PCP because she has been having increasing shortness of breath. Patient's diuretic regimen was recently changed due to her kidney function. She was following up for routine visit for labs and was notified by her PCP that her potassium was low and needed to come to the ER for evaluation. Patient also reports that she has gained over 20 pounds in the last month but has not seen cardiology quite some time . Review of her records shows an nuclear medicine perfusion scan that showed an ejection fraction of 61% in 2022. There is normal recent echocardiogram. Patient reports that she has exercise intolerance and dyspnea on exertion and now she started to have dyspnea at rest. She denies any chest pain fever chills hemoptysis hematochezia melena nausea vomiting diarrhea. Related Data Home Medications ?Medication ?Instructions ?Recorded ?Confirmed buprenorphine 8 mg-naloxone 2 mg 2 tab sublingual DAILY 03/17/22 10/08/24 sublingual tablet losartan 25 mg tablet 25 mg PO DAILY 02/02/23 10/08/24 ergocalciferol (vitamin D2) 1,250 50,000 unit PO WEEKLY 06/10/24 10/08/24 mcg (50,000 unit) capsule fluoxetine 40 mg capsule 80 mg PO DAILY 06/10/24 10/08/24 hydroxyzine pamoate 25 mg capsule 25 mg PO HSP PRN Insomnia 06/10/24 10/08/24 levothyroxine 200 mcg tablet 200 mcg PO DAILY 06/10/24 10/08/24 omeprazole 40 mg capsule,delayed 40 mg PO DAILY 06/10/24 10/08/24 release torsemide 100 mg tablet 50 mg PO DAILY 06/10/24 10/08/24 Previous Rx's ?Medication ?Instructions ?Recorded medroxyprogesterone 5 mg tablet 2.5 mg (1/2 x 5 mg) PO DAILY #30 04/17/24 (Provera) tabs atorvastatin 20 mg tablet (Lipitor) 20 mg PO DAILY #30 tabs 04/23/24 potassium chloride 20 mEq 20 meq PO DAILY #30 tabs 05/21/24 tablet,extended release(part/cryst) allopurinol 100 mg tablet 100 mg PO DAILY 30 days #30 tabs 06/12/24 colchicine 0.6 mg tablet 0.6 mg PO DAILY PRN gout pain #30 06/12/24 tabs spironolactone 100 mg tablet 100 mg PO DAILY #90 tabs 08/20/24 Allergies Allergy/AdvReac Type Severity Reaction Status Date / Time clarithromycin (From BIAXIN) Allergy Mild Verified 05/21/24 10:12 amoxicillin Allergy Verified 05/21/24 10:12 [facility] <ROSIE Ashley - Last Filed: 10/08/24 14:25> [facility] Disclaimer: The information contained in this section may have been updated after the patient was seen, as this information can be updated by other users. Medical History (Updated 10/08/24 @ 14:25 by ROSIE Ashley) Symptomatic cholelithiasis GERD (gastroesophageal reflux disease) Asthma IBS (irritable bowel syndrome) Typical angina Depressed Anxiety Restless legs syndrome Insomnia Daytime somnolence Abnormal EKG Unstable angina Dizziness Atypical angina Claudication Chest pain Gastroesophageal reflux disease Preoperative clearance Diastolic dysfunction Vitamin D deficiency Hypothyroidism HLD (hyperlipidemia) HHD (hypertensive heart disease) CAD (coronary artery disease) Neck Pain Radiculopathy affecting upper extremity Surgical History (Updated 06/16/24 @ 00:00 by Franklin Peters) History of laparoscopic cholecystectomy S/P tonsillectomy and adenoidectomy Stented coronary artery H/O lithotripsy History of hip replacement Stented coronary artery Family History Other Family history of COPD (chronic obstructive pulmonary disease) Family history of cancer Family history of myocardial infarction Social History (Updated 06/10/24 @ 16:43 by Fadia Martinez RN) Smoking Status: Never smoker second hand exposure: No alcohol intake: never substance use type: denies use current occupational status: employed and unemployed Travel in the last 8 weeks: None household members: none housing: house 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 current occupational exposures/hazards: No caffeine: Yes Have you lived/traveled outside [place] in past 30 days?: No Contact w/someone who lives/traveled outside US past 30 days?: No Exposure to someone with infectious disease in past 14 days?: No Do you have a fever (greater than 100.4 F or 38 C)?: No Have you tested positive for COVID-19: No Exposed to someone with COVID-19 in past 14 days?: No Do you have a sore throat?: No Do you have a cough?: No Do you have any weakness?: No Do you have any diarrhea?: No Are you experiencing any unusual bleeding?: No Do you have any muscle aches/pain?: No Do you have any abdominal pain?: No Are you experiencing loss of taste or smell?: No Other Medical History Have you received the Flu Vaccine for this season: No Have you received the Pneumonia Vaccine: No <ROSIE Ashley - Last Filed: 10/08/24 14:25> ROS Obtained: Yes Systems reviewed as appropriate & no additional complaints except as documented Physical Exam <ROSIE Ashley - Last Filed: 10/08/24 14:25> General General appearance: alert and in no apparent distress Respiratory Respiratory exam: Present normal lung sounds bilaterally Cardiovascular Cardiovascular exam: Present regular rate Neurological Exam Neurological exam: Present alert and oriented X3 Medical Decision Making <ROSIE Ashley - Last Filed: 10/08/24 14:25> Medical Records Medical records reviewed: Yes I reviewed the patient's medical records. Screening: Per USPSTF and CDC recommendations, given the prevalence of disease in our region, it is our hospital?s policy to screen for HIV and viral Hepatitis for all patients aged 18 and over and those with ongoing risk factors. Wolfgang Inquiry Pt receiving controlled substance: No Vital Signs: 10/08/24 11:17 Temperature 97.9 F Temperature Source Oral Pulse Rate [Right] 88 Respiratory Rate 20 Blood Pressure [Left Arm] 103/49 L Blood Pressure Mean [Left Arm] 67 Blood Pressure Source [Left Arm] Automatic Cuff 02 Sat by Pulse Oximetry 96 Oxygen Delivery Method Room Air Lab Data Lab results reviewed: Yes I reviewed the patient's lab results. Lab Results 10/08/24 11:40: WBC 4.9, RBC 2.69 L, Hgb 8.6 L, Hct 25.7 L, MCV 95.5, MCH 32.0 H , MCHC 33.5, RDW 17.5, Plt Count 224, MPV 9.8, Neut % (Auto) 63.2, Lymph % (Auto) 23.3, Runnels % (Auto) 9.9 H, Eos % (Auto) 2.2, Baso % (Auto) 0.4, Neut # (Auto) 3.1, Lymph # (Auto) 1.2, Runnels # (Auto) 0.5, Eos # (Auto) 0.1, Baso # (Auto) 0.0, Sodium 136, Potassium 3.2 L, Chloride 98, Carbon Dioxide 26, Anion Gap 15.2 H, BUN 53 H, Creatinine 3.00 H, Estimated Creat Clear 19, Estimated GFR 16 L*, Est GFR ( Amer) 20 L, Glucose 130 H, Calcium 9.0, Total Bilirubin 0.4, AST 65 H, ALT 26, Alkaline Phosphatase 96, Total Protein 6.8, Albumin 4.0, Globulin 2.8, Albumin/Globulin Ratio 1.4 10/08/24 12:22: Magnesium 1.3 L, Troponin I < 0.01, NT-Pro-B Natriuret Pep 555 H 10/08/24 11:40 10/08/24 11:40 Orders (Tests/Meds): ED MEDICATIONS Generic Name Dose Route Start Last Admin Trade Name Freq PRN Reason Stop Dose Admin Heparin Sodium (Porcine) 5,000 unit 10/08/24 21:00 Heparin Sodium 5,000 Unit/Ml Vial SUBCUT 11/07/24 20:59 TID LADONNA Sodium Chloride 10 ml 10/08/24 11:51 Sodium Chloride 0.9% 10ml Flush Syringe IV 11/07/24 11:50 NEEDED PRN Maintain IV Site Discontinued Medications Generic Name Dose Route Start Last Admin Trade Name Freq PRN Reason Stop Dose Admin Magnesium Sulfate 2 gm in 50 mls @ 50 mls/hr 10/08/24 13:06 10/08/24 13:18 Magnesium Sulfate 2gm/50ml Premix IV 10/08/24 14:05 50 mls/hr ONCE ONE Administration Potassium Chloride 40 meq 10/08/24 13:23 10/08/24 13:44 Potassium Chloride 20meq Tab PO 10/08/24 13:24 40 meq ONCE ONE Administration ORDERS Category Date Time Status Cardiology Consult [Consult to Cardiology] [CONS] Cons 10/08/24 14:18 Active Routine Chest XR 2 view (NOT portable) [XR chest 2V] Stat Exams 10/08/24 12:15 Completed BNP [NT Pro Brain Natriuretic Pep.] Stat Lab 10/08/24 12:22 Completed Complete Blood Count Auto Diff AMLAB Lab 10/09/24 06:00 Ordered Complete Blood Count Auto Diff Stat Lab 10/08/24 11:40 Completed Comprehensive Metabolic Panel AMLAB Lab 10/09/24 06:00 Ordered Comprehensive Metabolic Panel Stat Lab 10/08/24 11:40 Completed Magnesium AMLAB Lab 10/09/24 06:00 Ordered Magnesium Stat Lab 10/08/24 12:22 Completed Trop I [Troponin I] Stat Lab 10/08/24 12:22 Completed Troponin I Q3H Lab 10/08/24 15:15 Ordered Troponin I Q3H Lab 10/08/24 18:15 Ordered HEART Score History (anamnesis): Slightly suspicious ECG: Normal Age: 45-65 years Risk factors: Atherosclerosis history Troponin: </= normal limit HEART Score: 3 Medical Decision Narrative: In summary patient is a 53-year-old female who presents to the emergency department for evaluation of abnormal lab results and dyspnea. Patient is initially slightly hypotensive with a blood pressure of 103/49 with a heart rate of 88 with normal sinus rhythm on the bedside monitor breathing 20 times a minute satting at 96% on room air upon arrival, and afebrile at 97.9. Physical exam is remarkable for clear breath sounds heard to the bases without adventitious sounds, no abdominal tenderness with normal bowel sounds, patient does have tense pitting edema of the bilateral lower extremities to the level of the thigh but no tenderness erythema or induration. Peripheral pulses are palpable in the bilateral lower extremities. She is neurovascular intact distally.. Differential diagnosis includes CHF exacerbation versus ACS versus electrolyte abnormality versus renal failure etc. Initial workup will be conducted with hematologic labs twelve-lead EKG plain film chest x-ray urinalysis. Initial interventions are deferred until workup is complete as patient has no acute needs at the moment and denies any pain or fever. Initial workup reviewed by me and patient does have low potassium 3.2 however she has low magnesium of 1.3 but patient has critical GFR of 16 which is significantly decreased from 74 in June of last year along with a creatinine of 3 a BUN of 53 and NT proBNP of 555 the troponin of less than 0.01 and my informal interpretation of her plain film chest x-ray shows pulmonary vascular congestion that could be consistent with volume overload. After HUNTLEY I considered both fluids and diuresis however given her history of chronic renal failure of unknown CKD stage and also of CHF I have deferred both of those as patient remains hemodynamically stable and without an oxygen requirement currently. I have ordered IV replacement of her magnesium oral replacement of her potassium. I then had an interactive discussion with Dr. Hester of [facility] regarding patient presentation HUNT[place] and findings and patient management. And she will be admitted for further evaluation and care. <Anjali Coelho, DO - Last Filed: 10/08/24 13:02> Vital Signs: 10/08/24 11:17 Temperature 97.9 F Temperature Source Oral Pulse Rate [Right] 88 Respiratory Rate 20 Blood Pressure [Left Arm] 103/49 L Blood Pressure Mean [Left Arm] 67 Blood Pressure Source [Left Arm] Automatic Cuff 02 Sat by Pulse Oximetry 96 Oxygen Delivery Method Room Air Lab Data Lab Results 10/08/24 11:40: WBC 4.9, RBC 2.69 L, Hgb 8.6 L, Hct 25.7 L, MCV 95.5, MCH 32.0 H , MCHC 33.5, RDW 17.5, Plt Count 224, MPV 9.8, Neut % (Auto) 63.2, Lymph % (Auto) 23.3, Runnels % (Auto) 9.9 H, Eos % (Auto) 2.2, Baso % (Auto) 0.4, Neut # (Auto) 3.1, Lymph # (Auto) 1.2, Runnels # (Auto) 0.5, Eos # (Auto) 0.1, Baso # (Auto) 0.0, Sodium 136, Potassium 3.2 L, Chloride 98, Carbon Dioxide 26, Anion Gap 15.2 H, BUN 53 H, Creatinine 3.00 H, Estimated Creat Clear 19, Estimated GFR 16 L*, Est GFR ( Amer) 20 L, Glucose 130 H, Calcium 9.0, Total Bilirubin 0.4, AST 65 H, ALT 26, Alkaline Phosphatase 96, Total Protein 6.8, Albumin 4.0, Globulin 2.8, Albumin/Globulin Ratio 1.4 10/08/24 12:22: Magnesium 1.3 L, Troponin I < 0.01, NT-Pro-B Natriuret Pep 555 H Orders (Tests/Meds): ED MEDICATIONS Generic Name Dose Route Start Last Admin Trade Name Freq PRN Reason Stop Dose Admin Heparin Sodium (Porcine) 5,000 unit 10/08/24 21:00 Heparin Sodium 5,000 Unit/Ml Vial SUBCUT 11/07/24 20:59 TID LADONNA Sodium Chloride 10 ml 10/08/24 11:51 Sodium Chloride 0.9% 10ml Flush Syringe IV 11/07/24 11:50 NEEDED PRN Maintain IV Site Discontinued Medications Generic Name Dose Route Start Last Admin Trade Name Fortunatoq PRN Reason Stop Dose Admin Magnesium Sulfate 2 gm in 50 mls @ 50 mls/hr 10/08/24 13:06 10/08/24 13:18 Magnesium Sulfate 2gm/50ml Premix IV 10/08/24 14:05 50 mls/hr ONCE ONE Administration Potassium Chloride 40 meq 10/08/24 13:23 10/08/24 13:44 Potassium Chloride 20meq Tab PO 10/08/24 13:24 40 meq ONCE ONE Administration ORDERS Category Date Time Status Cardiology Consult [Consult to Cardiology] [CONS] Cons 10/08/24 14:18 Active Routine Chest XR 2 view (NOT portable) [XR chest 2V] Stat Exams 10/08/24 12:15 Completed BNP [NT Pro Brain Natriuretic Pep.] Stat Lab 10/08/24 12:22 Completed Complete Blood Count Auto Diff AMLAB Lab 10/09/24 06:00 Ordered Complete Blood Count Auto Diff Stat Lab 10/08/24 11:40 Completed Comprehensive Metabolic Panel AMLAB Lab 10/09/24 06:00 Ordered Comprehensive Metabolic Panel Stat Lab 10/08/24 11:40 Completed Magnesium AMLAB Lab 10/09/24 06:00 Ordered Magnesium Stat Lab 10/08/24 12:22 Completed Trop I [Troponin I] Stat Lab 10/08/24 12:22 Completed Troponin I Q3H Lab 10/08/24 15:15 Ordered Troponin I Q3H Lab 10/08/24 18:15 Ordered ECG Data Tracing #1: I reviewed this ECG and interpreted as documented below: Normal sinus rhythm with a ventricular of 82 bpm. Left axis deviation. Nonspecific T wave abnormality. No acute STEMI. PVC noted ECG initial impression date: 10/08/24 ECG initial impression time: 11:55 Critical Care <ROSIE Ashley - Last Filed: 10/08/24 14:25> Critical Care Time Critical Care Time: Yes Attestation: On 10/08/24, the high probability of a clinically significant, sudden or life threatening deterioration of the following system(s) required my full and direct attention, intervention and personal management. The time I documented below is in addition to time spent performing reported procedures but includes the following listed in this critical care notation. Total Time Total Critical Care Time: 35
--- NOTE | 2024-10-08 12:15 | XR_ITS ---
FINAL REPORT CLINICAL HISTORY: Shortness of air history of CHF COMPARISON: 06/09/2023 FINDINGS: PA and lateral views of the chest were obtained. The heart is borderline in size with pulmonary vascular congestion. The mediastinum is unremarkable. The lungs are otherwise clear. There is no pleural effusion or pneumothorax. No acute osseous abnormality is identified. IMPRESSION: Pulmonary vascular congestion. Reviewed, Interpreted and Dictated by Carmina Dawn MD Transcribed by Humera Marmolejo Authenticated and [facility]
--- NOTE | 2024-10-08 12:24 | PC.NURSE ---
PT TO XR
[2024-10-08 12:47] LABS: Magnesium 1.3 mg/dl (1.6-2.3)
[2024-10-08 12:57] LABS: NT Pro Brain Natriuretic Pep. 555 pg/mL (0-125)
[2024-10-08 13:03] LABS: Troponin I < 0.01 ng/ml (0.00-0.034)
[2024-10-08 13:10] LABS: Chloride 98 mmol/L (98-107); Potassium 3.2 mmoL/L (3.5-5.1); Sodium 136 mmol/L (136-145)
[2024-10-08 13:12] LABS: Blood Urea Nitrogen 53 mg/dl (7-17); Creatinine Clearance Estimated 19 mL/min (50-200); Estimated Glomerular Filt Rate 16 ml/min (>60); GFR (African American) 20 ML/MIN (>60)
[2024-10-08 13:13] LABS: Alanine Aminotransferase 26 U/L (12-78); Albumin/Globulin Ratio 1.4 (1.1-1.8); Alkaline Phosphatase 96 U/L (38-126); Anion Gap 15.2 mEq/L (5-15); Aspartate Amino Transferase 65 U/L (14-36); Bilirubin,Total 0.4 mg/dl (0.2-1.3); Carbon Dioxide 26 mmol/L (22.0-30.0); Globulin 2.8 g/dL (1.3-3.2); Glucose 130 mg/dl (74-100); Total Protein,Serum 6.8 g/dl (6.3-8.2)
[2024-10-08] MEDS: MAGNESIUM SULFATE IN WATER 2 GM/50 ML PIGGYBACK IV (13:18)
[2024-10-08] MEDS: POTASSIUM CHLORIDE 20MEQ TAB 40 MEQ PO ×2 (13:44→20:43)
--- NOTE | 2024-10-08 14:13 | PC.NURSE ---
[facility] HOUSE SPEAKING WITH DR CONROY
--- NOTE | 2024-10-08 14:20 | PC.NURSE ---
[employer] NOTIFIED OF ADMISSION
--- NOTE | 2024-10-08 14:37 | HMH.PHAINT1 ---
Pharmacy Intervention Comments: MEDICATION RECONCILIATION COMPLETED ON PATIENT USING EXTERNAL FILL HISTORY FROM PHARMACY. -NISREEN ALSTON, REDD
--- NOTE | 2024-10-08 14:52 | CT_ITS ---
FINAL REPORT TECHNIQUE: Thin section axial images were obtained from the lung apices through the upper abdomen without contrast. This study was performed with techniques to keep radiation doses as low as reasonably achievable (ALARA). Individualized dose reduction techniques using automated exposure control or adjustment of mA and/or kV according to the patient's size were employed. CLINICAL HISTORY: Shortness of breath on exertion COMPARISON: 06/09/2023 FINDINGS: There is no mediastinal, hilar, or axillary lymphadenopathy. No pleural or pericardial effusion. The ascending aorta measures 4 cm, unchanged. There is persistent left-sided SVC. Linear opacities in the right middle lobe are likely atelectasis or scar. The lungs are otherwise clear. No consolidations.. Limited, unenhanced evaluation of the upper abdomen is without acute abnormality. Splenic artery aneurysm in the hilum of the spleen is unchanged in size. There is no acute osseous abnormality. IMPRESSION: Stable ascending aortic aneurysm. No acute intrathoracic abnormality. Reviewed, Interpreted and Dictated by Carmina Dawn MD Transcribed by Cindy Lang Authenticated and [facility]
--- NOTE | 2024-10-08 14:54 | CA_ITS ---
APPROVED REPORT EXAM: Comprehensive 2D, Doppler, and color-flow Echocardiogram Historiography Professor: RT Zahra(R) Ht: 5 ft 4 in Wt: 285lbs BSA: 2.27 BP: 103/49 mmHg Indications: SOB, HTN, hyperlipidemia, CHF, CAD, CKD LV Diastology E Decel Time 140 (160-240 msec) E/A Ratio 1.1 Mitral Valve MV E Max Benny. 91.0 (40-130 cm/s) MV A Velocity 84.0 (40-130 cm/s) E/A Ratio 1.09 MV PHT 41.0 ms Left Ventricle The left ventricle is normal size. The left ventricular systolic function is normal. The left ventricular ejection fraction is within the normal range. There is increased LV wall thickness. There is normal LV segmental wall motion. Diastolic function is indeterminate. LVEF is 55%. Right Ventricle Right ventricle is mildly dilated. The right ventricular systolic function is normal. Atria Left atrium is mildly dilated. Right atrium is mildly dilated. The interatrial septum is not well-visualized. Aortic Valve The aortic valve is mildly thickened. There is no aortic valvular stenosis. Trace aortic regurgitation. Mitral Valve The mitral valve is mildly thickened. No evidence of mitral valve stenosis. Trace mitral regurgitation. Tricuspid Valve The tricuspid valve leaflets are thin and pliable. Trace tricuspid regurgitation. There is insufficient TR jet to estimate RVSP. Pulmonic Valve The pulmonic valve is not well-visualized. Great Vessels The aortic root is normal in size. The IVC is not well-visualized. Pericardium There is no pericardial effusion. Other Information Study Quality: Fair Conclusion Normal biventricular systolic function. Mild RV dilation. Biatrial dilation. No significant valvular stenosis or regurgitation. Electronically signed by : Mandi Lam MD 10/10/2024 10:23:21
--- NOTE | 2024-10-08 15:16 | EXP.CARD.CON ---
History of Present Illness History of Present Illness Consult date: 10/08/24 Requesting physician: Adam Hester Consult reason: congestive heart failure Chief complaint: SOA, CP, LE Edema History of present illness: 53-year-old white female former patient of our office not seen since 2022. Has a history of nonobstructive CAD per heart cath 2022. Echo at that time showed EF 55%. Also with a history of splenic artery aneurysm, hypertension, obesity. Patient presents to the emergency room referred by her PCP for worsening symptoms. Patient describes 2 months of worsening episodes of chest heaviness with severe dyspnea on exertion orthopnea and lower extremity edema. She reports she is up 20 pounds over the past 1 month. In the emergency room she has severe pitting edema from her feet to her thighs. She is conversationally winded sitting on the edge of the bed. Her proBNP is paradoxically only 555, troponin is normal, chest x-ray shows pulmonary vascular congestion, hemoglobin 8.6, potassium 3.2. [facility] Disclaimer: The information contained in this section may have been updated after the patient was seen, as this information can be updated by other users. Medical History Symptomatic cholelithiasis GERD (gastroesophageal reflux disease) Asthma IBS (irritable bowel syndrome) Typical angina Depressed Anxiety Restless legs syndrome Insomnia Daytime somnolence Abnormal EKG Unstable angina Dizziness Atypical angina Claudication Chest pain Gastroesophageal reflux disease Preoperative clearance Diastolic dysfunction Vitamin D deficiency Hypothyroidism HLD (hyperlipidemia) HHD (hypertensive heart disease) CAD (coronary artery disease) Neck Pain Radiculopathy affecting upper extremity Surgical History History of laparoscopic cholecystectomy S/P tonsillectomy and adenoidectomy Stented coronary artery H/O lithotripsy History of hip replacement Stented coronary artery Family History Other Family history of COPD (chronic obstructive pulmonary disease) Family history of cancer Family history of myocardial infarction Social History Smoking Status: Never smoker second hand exposure: No alcohol intake: never substance use type: denies use current occupational status: employed and unemployed Travel in the last 8 weeks: None household members: none housing: house 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 current occupational exposures/hazards: No caffeine: Yes Have you lived/traveled outside US in past 30 days?: No Contact w/someone who lives/traveled outside US past 30 days?: No Exposure to someone with infectious disease in past 14 days?: No Do you have a fever (greater than 100.4 F or 38 C)?: No Have you tested positive for COVID-19: No Exposed to someone with COVID-19 in past 14 days?: No Do you have a sore throat?: No Do you have a cough?: No Do you have any weakness?: No Do you have any diarrhea?: No Are you experiencing any unusual bleeding?: No Do you have any muscle aches/pain?: No Do you have any abdominal pain?: No Are you experiencing loss of taste or smell?: No Review of Systems Constitutional Constitutional: Reports fatigue and Reports weakness Eyes Eyes: Denies loss of vision ENT Ears, Nose, Mouth, and Throat: Denies hearing loss and Denies vertigo *Cardiovascular Cardiovascular: Reports chest pain, Reports dyspnea, Reports leg edema and Denies syncope *Respiratory Respiratory: Denies cough and Reports dyspnea *Gastrointestinal Gastrointestinal: Denies change in stool character, Denies nausea and Denies vomiting *Musculoskeletal Musculoskeletal: Denies muscle weakness Integumentary/Breasts Skin/Breast: Denies changing lesions *Neurologic Neurologic: Denies loss of vision, Denies syncope, Denies vertigo and Reports weakness Endocrine Endocrine: Reports fatigue Exam Data for Last 24 hours Vital signs and Labs for Last 24 Hours: Temp Pulse Resp BP Pulse Ox O2 Del Method 97.9 F 86 20 120/71 97 Room Air 10/08/24 14:38 10/08/24 14:38 10/08/24 14:38 10/08/24 14:38 10/08/24 14:30 10/08/24 14:38 Laboratory Results - last 24 hr 10/08/24 11:40: WBC 4.9, RBC 2.69 L, Hgb 8.6 L, Hct 25.7 L, MCV 95.5, MCH 32.0 H, MCHC 33.5, RDW 17.5, Plt Count 224, MPV 9.8, Neut % (Auto) 63.2, Lymph % (Auto) 23.3, [place] % (Auto) 9.9 H, Eos % (Auto) 2.2, Baso % (Auto) 0.4, Neut # (Auto) 3.1, Lymph # (Auto) 1.2, [place] # (Auto) 0.5, Eos # (Auto) 0.1, Baso # (Auto) 0.0, Sodium 136, Potassium 3.2 L, Chloride 98, Carbon Dioxide 26, Anion Gap 15.2 H, BUN 53 H, Creatinine 3.00 H, Estimated Creat Clear 19, Estimated GFR 16 L*, Est GFR ( Amer) 20 L, Glucose 130 H, Calcium 9.0, Total Bilirubin 0.4, AST 65 H, ALT 26, Alkaline Phosphatase 96, Total Protein 6.8, Albumin 4.0, Globulin 2.8, Albumin/Globulin Ratio 1.4 10/08/24 12:22: Magnesium 1.3 L, Troponin I < 0.01, NT-Pro-B Natriuret Pep 555 H I & O for Last 24 hours: Intake & Output 10/05/24 10/06/24 10/07/24 10/08/24 23:59 23:59 23:59 23:59 Weight 285 lb Constitutional Constitutional: mild distress and cooperative *Routine HEENT Exam Eye: Present PERRL *Routine Respiratory Exam Respiratory: Present CTA bilaterally; Absent accessory muscle use, wheezes or crackles *Routine Cardiovascular Exam Cardiovascular: Present RRR, Normal S1 and Normal S2; Absent murmur, gallop or rubs Comments: 3+ pitting edema feet to flanks bilaterally, distended abdomen, pt SOA sitting on edge of bed *Routine Abdominal Exam Abdominal: Present soft; Absent tenderness *Routine Extremities Exam Extremities: Present pulses intact; Absent cyanosis or edema *Routine Skin Exam Skin: Present intact; Absent erythema or wounds *Routine Neurological Exam Neurological: Present alert and oriented X3 Routine Psychiatric Exam Psychiatric: Present cooperative Meds Home Medications and Allergies Home Medications ?Medication ?Instructions ?Recorded ?Confirmed ?Type buprenorphine 8 mg-naloxone 2 mg 2 tab sublingual DAILY 03/17/22 10/08/24 History sublingual tablet atorvastatin 20 mg tablet (Lipitor) 20 mg PO DAILY #30 tabs 04/23/24 10/08/24 Rx potassium chloride 20 mEq 20 meq PO DAILY #30 tabs 05/21/24 10/08/24 Rx tablet,extended release(part/cryst) ergocalciferol (vitamin D2) 1,250 50,000 unit PO WEEKLY 06/10/24 10/08/24 History mcg (50,000 unit) capsule fluoxetine 40 mg capsule 80 mg PO DAILY 06/10/24 10/08/24 History hydroxyzine pamoate 25 mg capsule 25 mg PO HSP PRN Insomnia 06/10/24 10/08/24 History levothyroxine 200 mcg tablet 200 mcg PO DAILY 06/10/24 10/08/24 History omeprazole 40 mg capsule,delayed 40 mg PO DAILY 06/10/24 10/08/24 History release allopurinol 100 mg tablet 100 mg PO DAILY 30 days #30 tabs 06/12/24 10/08/24 Rx spironolactone 100 mg tablet 100 mg PO DAILY #90 tabs 08/20/24 10/08/24 Rx dapagliflozin propanediol 10 mg 10 mg PO DAILY 10/08/24 10/08/24 History tablet (Farxiga) losartan 25 mg tablet 25 mg PO DAILY 10/08/24 10/08/24 History medroxyprogesterone 2.5 mg tablet 2.5 mg PO DAILY 10/08/24 10/08/24 History torsemide 100 mg tablet 100 mg PO DAILY 10/08/24 10/08/24 History New Prescriptions to Start Prescriptions: Allergies Allergy/AdvReac Type Severity Reaction Status Date / Time clarithromycin (From PhysitrackAXIN) Allergy Mild Verified 05/21/24 10:12 amoxicillin Allergy Verified 05/21/24 10:12 Assessment and Plan *Assessment and plan (1) Acute heart failure with preserved ejection fraction (HFpEF): Status: Acute Category: Medical Code(s): I50.31 - Acute diastolic (congestive) heart failure (2) Acute renal failure superimposed on chronic kidney disease: Status: Acute Qualifiers: Acute renal failure type: unspecified Chronic kidney disease stage: unspecified stage Qualified Code(s): N17.9 - Acute kidney failure, unspecified; N18.9 - Chronic kidney disease, unspecified Category: Medical Code(s): N17.9 - Acute kidney failure, unspecified; N18.9 - Chronic kidney disease, unspecified (3) CAD (coronary artery disease): Status: Chronic Qualifiers: Coronary Disease-Associated Artery/Lesion type: [place] artery [place] vs. transplanted heart: [place] heart Associated angina: without angina Qualified Code(s): I25.10 - Atherosclerotic heart disease of [place] coronary artery without angina pectoris Category: Medical Code(s): I25.10 - Atherosclerotic heart disease of [place] coronary artery without angina pectoris (4) Morbid obesity: Status: Chronic Category: Medical Code(s): E66.01 - Morbid (severe) obesity due to excess calories Plan Acute HFpEF - Severe volume overload, proBNP only 555 but in setting of morbid obesity, CXR - pulm vasc congestion - will check CT chest and 2D ECHO - pt likely needs Bumex drip but with Cr of 3 will start with just 2 doses of Bumex 2mg and see how she responds - cont home doses of Losartan, Spironolactone, Farxiga Acute Renal Failure - Cr 3.0 here, was 0.8 last year - possibly from volume overload, will start diuresis due to resp distress and she how she responds - check UA for proteinuria - check bilateral renal duplex and renal US CAD - [facility] 2022 - nonobstructive 20-30% in LAD - pt endorses CCS=3 angina over the past 2 mo - could be from vol overload or worsening ischemia - resume ASA, Statin - Trop normal - EKG SR without ischemia - ECHO pending Htn - resume home meds Morbid Obesity - life limiting - needs dietition referral - consider OP GLP-1 - check status of FAISAL
--- NOTE | 2024-10-08 15:24 | US_ITS ---
PROCEDURE INFORMATION: Exam: US Retroperitoneal, Complete, Kidneys and Bladder Exam date and time: 10/08/2024 4:03 PM Age: 53 years old Clinical indication: Other: Acute renal failure, volume overload TECHNIQUE: Imaging protocol: Real-time ultrasound of the retroperitoneum with image documentation. Complete exam focused on the bilateral kidneys and urinary bladder. COMPARISON: CT ABDOMEN PELVIS W CON 12/17/2021 10:50 AM FINDINGS: Right kidney: Normal. No stones. No hydronephrosis. The right kidney measures 10.2 cm in length. Left kidney: Normal. No stones. No hydronephrosis. The left kidney measures 10.9 cm in length. Urinary bladder: Unremarkable. Liver: Echogenic liver consistent with steatosis. IMPRESSION: Normal renal ultrasound.
[2024-10-08 16:35] LABS: Troponin I < 0.01 ng/ml (0.00-0.034)
[2024-10-08] MEDS: BUMETANIDE 1 MG TABLET 2 MG PO (16:49)
[2024-10-08 17:04] LABS: Microscopic, Urine URINE MICROSCOPIC (MICROSCOPIC)
[2024-10-08 17:45] LABS: Appearance,Urine CLEAR (Clear); Bilirubin,Urine Negative (Negative); Blood, Urine 1+ (Negative); Color,Urine YELLOW (Yellow); Glucose,Urine (UA) 1+ (Negative); Ketones,Urine Negative (Negative); Leukocyte Esterase,Urine Negative (Negative); Nitrate,Urine Negative (Negative); Protein,Urine TRACE (Negative); Specific Gravity, Urine 1.015 (1.005-1.030); Urobilinogen,Urine 0.2 EU/dl (0.2)
--- NOTE | 2024-10-08 17:48 | P.HP_ITS ---
History of Present Illness *Admission Date: 10/08/24 *Reason for visit:: Shortness of breath with exertion, abnormal labs *History of present illness: Ms. Doran is a 53-year-old female with history of combined heart failure, morbid obesity, peripheral vascular disease, CAD, CKD, hyperlipidemia. She presented at the recommendation of her PCP after labs were obtained showing significant electrolyte abnormalities and kidney dysfunction. BUN elevated to 53, creatinine 3.0. Potassium 3.2, magnesium 1.3. She has had significant changes to her diuretic regimen over the past month or 2. Unsure exactly what she is taking at this time. Has not seen cardiology in some time. Previous heart caths with [address] Stable on room air. BNP elevated at 555. Given the abnormality in kidney function electrolytes, medicine was consulted for admission and further management. On arrival to the floor, patient also has significant lower extremity edema. States she has gained weight over the past few months. Review of her record shows a nuclear perfusion scan that showed EF of 61% in 2022 but is at previous echo showing mixed diastolic and systolic dysfunction. Reports dyspnea with exertion. Dry nonproductive cough. Denies any chest pain, fever, nausea or vomiting, confusion, syncope. Is having daily loose stools since becoming more swollen and edematous. States she is still making urine but not as much as usual. [facility] Disclaimer: The information contained in this section may have been updated after the patient was seen, as this information can be updated by other users. Medical History Symptomatic cholelithiasis GERD (gastroesophageal reflux disease) Asthma IBS (irritable bowel syndrome) Typical angina Depressed Anxiety Restless legs syndrome Insomnia Daytime somnolence Abnormal EKG Unstable angina Dizziness Atypical angina Claudication Chest pain Gastroesophageal reflux disease Preoperative clearance Diastolic dysfunction Vitamin D deficiency Hypothyroidism HLD (hyperlipidemia) HHD (hypertensive heart disease) CAD (coronary artery disease) Neck Pain Radiculopathy affecting upper extremity Surgical History History of laparoscopic cholecystectomy S/P tonsillectomy and adenoidectomy Stented coronary artery H/O lithotripsy History of hip replacement Stented coronary artery Family History Other Family history of COPD (chronic obstructive pulmonary disease) Family history of cancer Family history of myocardial infarction Social History Smoking Status: Never smoker second hand exposure: No alcohol intake: never substance use type: denies use current occupational status: employed and unemployed Travel in the last 8 weeks: None household members: none housing: house 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 current occupational exposures/hazards: No caffeine: Yes Have you lived/traveled outside US in past 30 days?: No Contact w/someone who lives/traveled outside US past 30 days?: No Exposure to someone with infectious disease in past 14 days?: No Do you have a fever (greater than 100.4 F or 38 C)?: No Have you tested positive for COVID-19: No Exposed to someone with COVID-19 in past 14 days?: No Do you have a sore throat?: No Do you have a cough?: No Do you have any weakness?: No Do you have any diarrhea?: No Are you experiencing any unusual bleeding?: No Do you have any muscle aches/pain?: No Do you have any abdominal pain?: No Are you experiencing loss of taste or smell?: No Other Medical History Have you received the Flu Vaccine for this season: No Have you received the Pneumonia Vaccine: No Review of Systems Review of Systems Review of systems (narrative): 14 point review of systems performed, pertinent positives and negatives as per HPI Constitutional Constitutional: Reports weakness Eyes Eyes: Denies loss of vision ENT Ears, Nose, Mouth, and Throat: Denies vertigo *Cardiovascular Cardiovascular: Denies syncope *Neurologic Neurologic: Denies loss of vision, Denies syncope, Denies vertigo and Reports weakness Meds Home Medications and Allergies Home Medications ?Medication ?Instructions ?Recorded ?Confirmed ?Type buprenorphine 8 mg-naloxone 2 mg 2 tab sublingual DAILY 03/17/22 10/08/24 History sublingual tablet atorvastatin 20 mg tablet (Lipitor) 20 mg PO DAILY #30 tabs 04/23/24 10/08/24 Rx potassium chloride 20 mEq 20 meq PO DAILY #30 tabs 05/21/24 10/08/24 Rx tablet,extended release(part/cryst) ergocalciferol (vitamin D2) 1,250 50,000 unit PO WEEKLY 06/10/24 10/08/24 History mcg (50,000 unit) capsule fluoxetine 40 mg capsule 80 mg PO DAILY 06/10/24 10/08/24 History hydroxyzine pamoate 25 mg capsule 25 mg PO HSP PRN Insomnia 06/10/24 10/08/24 History levothyroxine 200 mcg tablet 200 mcg PO DAILY 06/10/24 10/08/24 History omeprazole 40 mg capsule,delayed 40 mg PO DAILY 06/10/24 10/08/24 History release allopurinol 100 mg tablet 100 mg PO DAILY 30 days #30 tabs 06/12/24 10/08/24 Rx spironolactone 100 mg tablet 100 mg PO DAILY #90 tabs 08/20/24 10/08/24 Rx dapagliflozin propanediol 10 mg 10 mg PO DAILY 10/08/24 10/08/24 History tablet (Farxiga) losartan 25 mg tablet 25 mg PO DAILY 10/08/24 10/08/24 History medroxyprogesterone 2.5 mg tablet 2.5 mg PO DAILY 10/08/24 10/08/24 History torsemide 100 mg tablet 100 mg PO DAILY 10/08/24 10/08/24 History New Prescriptions to Start Prescriptions: Allergies Allergy/AdvReac Type Severity Reaction Status Date / Time clarithromycin (From BIAXIN) Allergy Mild Verified 05/21/24 10:12 amoxicillin Allergy Verified 05/21/24 10:12 Exam Data for Last 24 hours Vital signs and Labs for Last 24 Hours: Temp Pulse Resp BP Pulse Ox O2 Del Method 97.7 F 93 H 20 141/77 H 98 Room Air 10/08/24 15:34 10/08/24 15:34 10/08/24 15:34 10/08/24 15:34 10/08/24 15:34 10/08/24 17:00 Laboratory Results - last 24 hr 10/08/24 11:40: WBC 4.9, RBC 2.69 L, Hgb 8.6 L, Hct 25.7 L, MCV 95.5, MCH 32.0 H , MCHC 33.5, RDW 17.5, Plt Count 224, MPV 9.8, Neut % (Auto) 63.2, Lymph % (Auto) 23.3, [place] % (Auto) 9.9 H, Eos % (Auto) 2.2, Baso % (Auto) 0.4, Neut # (Auto) 3.1, Lymph # (Auto) 1.2, [place] # (Auto) 0.5, Eos # (Auto) 0.1, Baso # (Auto) 0.0, Sodium 136, Potassium 3.2 L, Chloride 98, Carbon Dioxide 26, Anion Gap 15.2 H, BUN 53 H, Creatinine 3.00 H, Estimated Creat Clear 19, Estimated GFR 16 L*, Est GFR ( Amer) 20 L, Glucose 130 H, Calcium 9.0, Total Bilirubin 0.4, AST 65 H, ALT 26, Alkaline Phosphatase 96, Total Protein 6.8, Albumin 4.0, Globulin 2.8, Albumin/Globulin Ratio 1.4 10/08/24 12:22: Magnesium 1.3 L, Troponin I < 0.01, NT-Pro-B Natriuret Pep 555 H 10/08/24 15:50: Troponin I < 0.01 I & O for Last 24 hours: Intake & Output 10/05/24 10/06/24 10/07/24 10/08/24 23:59 23:59 23:59 23:59 Weight 282.1 kg Constitutional Constitutional: no acute distress, morbidly obese, chronically ill appearing and cooperative *Routine HEENT Exam Head: Present normocephalic Eye: Present EOMI and PERRL ENT: Present mucous membranes moist *Routine Neck Exam Neck: Present supple; Absent lymphadenopathy *Routine Respiratory Exam Respiratory: Present prolonged expiratory phase and crackles (Diffuse bilateral bases); Absent rhonchi or wheezes *Routine Cardiovascular Exam Cardiovascular: Present RRR *Routine Abdominal Exam Abdominal: Present soft, normoactive bowel sounds, tenderness (Nonfocal) and distended *Routine Rectal Exam Rectal:: deferred *Routine Genitalia Exam Genitalia:: deferred *Routine Extremities Exam Extremities: Present edema (3+ bilateral lower extremities to knees); Absent cyanosis or clubbing *Routine Skin Exam Skin: Present intact and warm; Absent rash Comments: Stasis dermatitis bilateral shins *Routine Neurological Exam Neurological: Present alert, oriented X3 and moving all extremities; Absent altered mental status Routine Psychiatric Exam Psychiatric: Present normal affect Assessment and Plan *Assessment and plan (1) Acute on chronic HFrEF (heart failure with reduced ejection fraction): Status: Acute Category: Medical Code(s): I50.23 - Acute on chronic systolic (congestive) heart failure (2) Hypokalemia: Status: Acute Category: Medical Code(s): E87.6 - Hypokalemia (3) Hypomagnesemia: Status: Acute Category: Medical Code(s): E83.42 - Hypomagnesemia (4) Acute renal failure superimposed on chronic kidney disease: Status: Acute Qualifiers: Acute renal failure type: unspecified Chronic kidney disease stage: unspecified stage Qualified Code(s): N17.9 - Acute kidney failure, unspecified; N18.9 - Chronic kidney disease, unspecified Category: Medical Code(s): N17.9 - Acute kidney failure, unspecified; N18.9 - Chronic kidney disease, unspecified (5) Elevated brain natriuretic peptide (BNP) level: Status: Acute Category: Medical Code(s): R79.89 - Other specified abnormal findings of blood chemistry (6) Morbid obesity: Status: Chronic Category: Medical Code(s): E66.01 - Morbid (severe) obesity due to excess calories (7) HLD (hyperlipidemia): Status: Chronic Qualifiers: Hyperlipidemia type: mixed hyperlipidemia Qualified Code(s): E78.2 - Mixed hyperlipidemia Category: Medical Code(s): E78.5 - Hyperlipidemia, unspecified (8) HHD (hypertensive heart disease): Status: Chronic Qualifiers: Heart failure chronicity: acute on chronic Heart failure presence: with heart failure Heart failure type: diastolic Qualified Code(s): I11.0 - Hypertensive heart disease with heart failure; I50.33 - Acute on chronic diastolic (congestive) heart failure Category: Medical Code(s): I11.9 - Hypertensive heart disease without heart failure (9) CAD (coronary artery disease): Status: Chronic Qualifiers: Associated angina: without angina Coronary Disease-Associated Artery/Lesion type: [place] artery [place] vs. transplanted heart: [place] heart Qualified Code(s): I25.10 - Atherosclerotic heart disease of [place] coronary artery without angina pectoris Category: Medical Code(s): I25.10 - Atherosclerotic heart disease of [place] coronary artery without angina pectoris (10) Hypothyroidism: Status: Chronic Qualifiers: Hypothyroidism type: unspecified Qualified Code(s): E03.9 - Hypothyroidism, unspecified Category: Medical Code(s): E03.9 - Hypothyroidism, unspecified (11) Stented coronary artery: Status: Chronic Category: Surgical Code(s): Z95.5 - Presence of coronary angioplasty implant and graft (12) Chronic kidney disease (CKD) stage G3a/A1, moderately decreased glomerular filtration rate (GFR) between 45-59 mL/min/1.73 square meter and albuminuria creatinine ratio less than 30 mg/g: Status: Chronic Category: Medical Code(s): N18.31 - Chronic kidney disease, stage 3a Plan 53-year-old female who presents with dyspnea on exertion. Had abnormal labs with her PCP. Found to have kidney injury and electrolyte disturbances. Presentation also consistent and concerning for CHF exacerbation. Previous imaging showed preserved ejection fraction. Case discussed with ER physician, request admission for cardiology eval and further management of organ dysfunction along with electrolyte abnormalities. I agreed to admit for further care. Echocardiogram obtained prior to leaving the ER. Problems addressed to follow Acute HFpEF CAD - Cardiology consulted, appreciate their recommendations. BNP elevated at 555. -Echo obtained with formal read pending -Initiate Bumex 2 mg p.o. twice daily. Monitor for response. Repeat CBC, CMP, magnesium ordered for the morning. -Continue home spironolactone 100 mg daily, continue Farxiga 10 mg daily. Holding home losartan given DINORAH -Per my review of patient's history and chart, left heart cath performed in 2022 with nonobstructing LAD lesions (20 to 30%). -Continue aspirin 81 mg daily and atorvastatin 20 mg daily -Troponin is negative at this time Acute Renal Failure - Cr 3.0 here, was 0.8 last year; repeat CMP, CBC, magnesium ordered for the morning. -Suspect secondary to problem above/congestion. Monitor for improvement with diuresis. -Bilateral renal artery duplex with no abnormalities or stenosis. Renal parenchyma appears normal on ultrasound. Opiate use disorder: Continue Suboxone 8/2 mg tablets, 2 tablets daily. Hypothyroid: Continue levothyroxine 200 mcg daily. TSH pending Continue Prozac 80 mg daily for mood disorder Continue Lipitor 100 mg daily for gout Continue pantoprazole 40 mg nightly for GERD Morbid obesity complicates all aspects of her care Full code Cardiac diet Heparin 5000 units SQ 3 times daily
[2024-10-08 19:14] LABS: Bacteria,Urine Trace /lpf
[2024-10-08 19:34] LABS: Troponin I < 0.01 ng/ml (0.00-0.034)
[2024-10-08] MEDS: HEPARIN SODIUM 5,000 UNIT/ML VIAL 5000 UNIT SUBCUT (20:43)
[2024-10-08] MEDS: PANTOPRAZOLE 40MG TABLET 40 MG PO (20:43)
[2024-10-09] VITALS: BP 100/56; PULSE 70; PULSE 74; RESP 16; TEMP 36.8; O2SAT 94
[2024-10-09 04:00] VITALS: BP 121/65; PULSE 75; PULSE 76; RESP 16; TEMP 36.8; O2SAT 97; BMI 49.1
--- NOTE | 2024-10-09 05:37 | PC.NURSE ---
no significant changes t/o night. pt has been npo since midnight and has has not slept much this shift. no needs at this time. cb within reach
[2024-10-09 06:55] LABS: Basophils % 0.2 % (0.1-2.0); Eosinophils # 0.1 K/mm3 (0.0-0.4); Eosinophils % 2.5 % (0.1-12.0); Hematocrit 23.9 % (37.0-47.0); Hemoglobin 7.9 g/dL (12.2-16.2); Lymphocytes # 0.9 K/mm3 (0.7-4.5); Mean Corpuscular HGB Conc 33.1 g/dL (31.8-35.4); Mean Corpuscular Hemoglobin 31.9 pg (27.0-31.2); Mean Corpuscular Volume 96.4 fl (81-99); Mean Platelet Volume 9.4 fl (7.4-10.4); Monocytes # 0.5 K/mm3 (0.1-1.0); Monocytes % 10.2 % (1.7-9.3); Neutrophils # 2.9 K/mm3 (1.8-7.8); Neutrophils % 66.4 % (37.0-80.0); Platelet Count 212 K/mm3 (142-424); Red Blood Count 2.48 M/mm3 (4.20-5.40); Red Cell Distribution Width 17.8 % (11.5-17.5); White Blood Count 4.4 K/mm3 (4.8-10.8)
--- NOTE | 2024-10-09 07:00 | CA_ITS ---
FINAL REPORT TECHNIQUE: Grayscale, color Doppler and duplex Doppler ultrasound of the kidneys, aorta and renal arteries was performed. Multiple velocities were measured. CLINICAL HISTORY: Renal failure, HTN, Obesity COMPARISON: None FINDINGS: Aorta velocity: 78 cm/sec Right kidney: 10.2 cm. No evidence of hydronephrosis or mass. Right intrarenal RI: 0.80-0.89 Right renal artery velocity: 171 cm/sec. Right RAR (Renal artery-Aortic Ratio): 2.2 Left Kidney: 10.8 cm. No evidence of hydronephrosis or mass. Left intrarenal RI: 0.84-0.89 Left renal artery velocity: 207 cm/sec. Left RAR (Renal Artery-Aortic Ratio): 2.7 IMPRESSION: Less than 60% renal artery stenosis seen bilaterally. CT angiogram or postcontrast MR angiogram would be more sensitive for evaluation of possible renal artery stenosis. Reviewed, Interpreted and Dictated by Carmina Dawn MD Transcribed by Nessa Verdugo Authenticated and [facility]
[2024-10-09 07:13] LABS: Chloride 100 mmol/L (98-107); Potassium 3.2 mmoL/L (3.5-5.1); Sodium 138 mmol/L (136-145)
[2024-10-09 07:16] LABS: Alanine Aminotransferase 26 U/L (12-78); Albumin/Globulin Ratio 1.3 (1.1-1.8); Alkaline Phosphatase 111 U/L (38-126); Anion Gap 13.2 mEq/L (5-15); Aspartate Amino Transferase 66 U/L (14-36); Bilirubin,Total 0.8 mg/dl (0.2-1.3); Blood Urea Nitrogen 46 mg/dl (7-17); Carbon Dioxide 28 mmol/L (22.0-30.0); Creatinine Clearance Estimated 32 mL/min (50-200); Estimated Glomerular Filt Rate 31 ml/min (>60); GFR (African American) 38 ML/MIN (>60); Globulin 3.2 g/dL (1.3-3.2); Total Protein,Serum 7.2 g/dl (6.3-8.2)
[2024-10-09 07:17] LABS: Calcium 8.7 mg/dl (8.4-10.2); Glucose 109 mg/dl (74-100); Magnesium 1.6 mg/dl (1.6-2.3)
[2024-10-09 08:00] VITALS: BP 108/43; PULSE 70; RESP 20; TEMP 36.8; O2SAT 96
[2024-10-09] MEDS: BUPRENORPHINE/NALOXONE 8MG/2MG ODT 2 EACH SL (08:42)
[2024-10-09] MEDS: FLUOXETINE 20MG CAPSULE 80 MG PO (08:42)
[2024-10-09] MEDS: POTASSIUM CHLORIDE 20MEQ TAB 40 MEQ PO ×2 (08:42→13:02)
[2024-10-09] MEDS: LEVOTHYROXINE 100MCG (0.1MG) TAB 200 MCG PO (08:43)
[2024-10-09] MEDS: MEDROXYPROGESTERONE ACETATE 2.5MG TABLET 2.5 MG PO (08:43)
[2024-10-09] MEDS: BUMETANIDE 1 MG TABLET 2 MG PO ×2 (08:43→16:07)
[2024-10-09] MEDS: ALLOPURINOL 100MG TABLET 100 MG PO (08:43)
[2024-10-09] MEDS: HEPARIN SODIUM 5,000 UNIT/ML VIAL 5000 UNIT SUBCUT (08:58)
--- NOTE | 2024-10-09 11:06 | P.PN_ITS ---
Subjective Subjective Date: 10/09/24 Time: 09:30 Interval history: No I/O recorded overnight but patient breathing better and has mild improvement in lower extremity edema. Creatinine improved to 1.7. CT chest normal, UA significant only for 1+ blood, renal ultrasound normal. Of note hemoglobin 7.9. Echo pending. Exam Data for Last 24 hours Vital signs and Labs for Last 24 Hours: Temp Pulse Resp BP Pulse Ox O2 Del Method 98.3 F 70 20 108/43 L 96 Room Air 10/09/24 08:00 10/09/24 08:00 10/09/24 08:00 10/09/24 08:00 10/09/24 08:00 10/09/24 08:00 Laboratory Results - last 24 hr 10/08/24 11:40: WBC 4.9, RBC 2.69 L, Hgb 8.6 L, Hct 25.7 L, MCV 95.5, MCH 32.0 H , MCHC 33.5, RDW 17.5, Plt Count 224, MPV 9.8, Neut % (Auto) 63.2, Lymph % (Auto) 23.3, [place] % (Auto) 9.9 H, Eos % (Auto) 2.2, Baso % (Auto) 0.4, Neut # (Auto) 3.1, Lymph # (Auto) 1.2, [place] # (Auto) 0.5, Eos # (Auto) 0.1, Baso # (Auto) 0.0, Sodium 136, Potassium 3.2 L, Chloride 98, Carbon Dioxide 26, Anion Gap 15.2 H, BUN 53 H, Creatinine 3.00 H, Estimated Creat Clear 19, Estimated GFR 16 L*, Est GFR ( Amer) 20 L, Glucose 130 H, Calcium 9.0, Total Bilirubin 0.4, AST 65 H, ALT 26, Alkaline Phosphatase 96, Total Protein 6.8, Albumin 4.0, Globulin 2.8, Albumin/Globulin Ratio 1.4 10/08/24 12:22: Magnesium 1.3 L, Troponin I < 0.01, NT-Pro-B Natriuret Pep 555 H 10/08/24 15:50: Troponin I < 0.01 10/08/24 16:47: Urine Color Yellow, Urine Appearance Clear, Urine pH 6.0, Ur Specific [place] 1.015, Urine Protein Trace, Urine Glucose (UA) 1+, Urine Ketones Negative, Urine Blood 1+ A, Urine Nitrate Negative, Urine Bilirubin Negative, Urine Urobilinogen 0.2, Ur Leukocyte Esterase Negative, Urine RBC 3-5, Urine WBC 3-5, Ur Squamous Epith Cells 5-10, Urine Bacteria Trace 10/08/24 18:50: Troponin I < 0.01 10/09/24 06:22: WBC 4.4 L, RBC 2.48 L, Hgb 7.9 L, Hct 23.9 L, MCV 96.4, MCH 31.9 H, MCHC 33.1, RDW 17.8 H, Plt Count 212, MPV 9.4, Neut % (Auto) 66.4, Lymph % (Auto) 20.0, [place] % (Auto) 10.2 H, Eos % (Auto) 2.5, Baso % (Auto) 0.2, Neut # (Auto) 2.9, Lymph # (Auto) 0.9, [place] # (Auto) 0.5, Eos # (Auto) 0.1, Baso # (Auto) 0.0, Sodium 138, Potassium 3.2 L, Chloride 100, Carbon Dioxide 28, Anion Gap 13.2, BUN 46 H, Creatinine 1.70 H D, Estimated Creat Clear 32, Estimated GFR 31 L, Est GFR ( Amer) 38 L D, Glucose 109 H, Calcium 8.7, Magnesium 1.6 D, Total Bilirubin 0.8, AST 66 H, ALT 26, Alkaline Phosphatase 111, Total Protein 7.2, Albumin 4.0, Globulin 3.2, Albumin/Globulin Ratio 1.3 Temp Pulse Resp BP Pulse Ox O2 Del Method 97.9 F 86 20 120/71 97 Room Air 10/08/24 14:38 10/08/24 14:38 10/08/24 14:38 10/08/24 14:38 10/08/24 14:30 10/08/24 14:38 Laboratory Results - last 24 hr 10/08/24 11:40: WBC 4.9, RBC 2.69 L, Hgb 8.6 L, Hct 25.7 L, MCV 95.5, MCH 32.0 H , MCHC 33.5, RDW 17.5, Plt Count 224, MPV 9.8, Neut % (Auto) 63.2, Lymph % (Auto) 23.3, [place] % (Auto) 9.9 H, Eos % (Auto) 2.2, Baso % (Auto) 0.4, Neut # (Auto) 3.1, Lymph # (Auto) 1.2, [place] # (Auto) 0.5, Eos # (Auto) 0.1, Baso # (Auto) 0.0, Sodium 136, Potassium 3.2 L, Chloride 98, Carbon Dioxide 26, Anion Gap 15.2 H, BUN 53 H, Creatinine 3.00 H, Estimated Creat Clear 19, Estimated GFR 16 L*, Est GFR ( Amer) 20 L, Glucose 130 H, Calcium 9.0, Total Bilirubin 0.4, AST 65 H, ALT 26, Alkaline Phosphatase 96, Total Protein 6.8, Albumin 4.0, Globulin 2.8, Albumin/Globulin Ratio 1.4 10/08/24 12:22: Magnesium 1.3 L, Troponin I < 0.01, NT-Pro-B Natriuret Pep 555 H I & O for Last 24 hours: Intake & Output 10/06/24 10/07/24 10/08/24 10/09/24 23:59 23:59 23:59 23:59 Intake Total 270 / 270 Output Total 0 / 0 0 / 0 Balance 270 / 270 0 / 0 Weight 282 lb 1.6 oz 288 lb Intake & Output 10/05/24 10/06/24 10/07/24 10/08/24 23:59 23:59 23:59 23:59 Weight 285 lb Constitutional Constitutional: no acute distress and cooperative *Routine HEENT Exam Eye: Present PERRL *Routine Respiratory Exam Respiratory: Present CTA bilaterally; Absent accessory muscle use, wheezes or crackles *Routine Cardiovascular Exam Cardiovascular: Present RRR, Normal S1 and Normal S2; Absent murmur, gallop or rubs Comments: Slight improvement in bilateral lower extremity edema feet to flanks *Routine Abdominal Exam Abdominal: Present soft; Absent tenderness *Routine Extremities Exam Extremities: Present pulses intact; Absent cyanosis or edema *Routine Skin Exam Skin: Present intact; Absent erythema or wounds *Routine Neurological Exam Neurological: Present alert and oriented X3 Routine Psychiatric Exam Psychiatric: Present cooperative Progress Note: A&P Assessment and plan (1) Hypokalemia: Status: Acute (2) Hypomagnesemia: Status: Acute (3) Morbid obesity: Status: Chronic (4) HLD (hyperlipidemia): Status: Chronic (5) HHD (hypertensive heart disease): Status: Chronic (6) CAD (coronary artery disease): Status: Chronic (7) Hypothyroidism: Status: Chronic (8) Stented coronary artery: Status: Chronic (9) Chronic kidney disease (CKD) stage G3a/A1, moderately decreased glomerular filtration rate (GFR) between 45-59 mL/min/1.73 square meter and albuminuria creatinine ratio less than 30 mg/g: Status: Chronic (10) Acute heart failure with preserved ejection fraction (HFpEF): Status: Acute (11) Renal insufficiency: Status: Acute Assessment and Plan Assessment and Plan for All Diagnoses:: Acute HFpEF - Severe volume overload, proBNP only 555 but in setting of morbid obesity, CXR - pulm vasc congestion - will check CT chest and 2D ECHO - pt likely needs Bumex drip but with Cr of 3 will start with just 2 doses of Bumex 2mg and see how she responds - cont home doses of Losartan, Spironolactone, Farxiga 10/09: Improving with diuresis. ECHO pending. Acute Renal Failure - Cr 3.0 here, was 0.8 last year - possibly from volume overload, will start diuresis due to resp distress and she how she responds - check UA for proteinuria - check bilateral renal duplex and renal US 10/09: Significant improvement to 1.7 with diuresis. Renal US neg. CAD - [facility] 2022 - nonobstructive 20-30% in LAD - pt endorses CCS=3 angina over the past 2 mo - could be from vol overload or worsening ischemia - resume ASA, Statin - Trop normal - EKG SR without ischemia - 10/09: ECHO pending Htn - resume home meds Morbid Obesity - life limiting - needs dietition referral - consider OP GLP-1 - check status of FAISAL
[2024-10-09 12:00] VITALS: BP 101/60; PULSE 60; PULSE 71; RESP 18; TEMP 36.4; O2SAT 96
--- NOTE | 2024-10-09 15:14 | P.DS_ITS ---
General Admission date:: 10/08/24 Discharge date: 10/09/24 HPI HPI HPI: Ms. Doran is a 53-year-old female with history of combined heart failure, morbid obesity, peripheral vascular disease, CAD, CKD, hyperlipidemia. She presented at the recommendation of her PCP after labs were obtained showing significant electrolyte abnormalities and kidney dysfunction. BUN elevated to 53, creatinine 3.0. Potassium 3.2, magnesium 1.3. She has had significant changes to her diuretic regimen over the past month or 2. Unsure exactly what she is taking at this time. Has not seen cardiology in some time. Previous heart caths with [address] Stable on room air. BNP elevated at 555. Given the abnormality in kidney function electrolytes, medicine was consulted for admission and further management. On arrival to the floor, patient also has significant lower extremity edema. States she has gained weight over the past few months. Review of her record shows a nuclear perfusion scan that showed EF of 61% in 2022 but is at previous echo showing mixed diastolic and systolic dysfunction. Reports dyspnea with exertion. Dry nonproductive cough. Denies any chest pain, fever, nausea or vomiting, confusion, syncope. Is having daily loose stools since becoming more swollen and edematous. States she is still making urine but not as much as usual. Hospital Course Hospital Course Hospital Course: 53-year-old female who presents with dyspnea on exertion. Had abnormal labs with her PCP. Found to have kidney injury and electrolyte disturbances. Presentation also consistent and concerning for CHF exacerbation. Previous imaging showed preserved ejection fraction. Case discussed with ER physician, request admission for cardiology eval and further management of organ dysfunction along with electrolyte abnormalities. I agreed to admit for further care. Echocardiogram obtained prior to leaving the ER. Cardiology was consulted to assist with care. Did well overnight. Stable to discharge home with outpatient follow-up. Problems addressed to follow Acute HFpEF CAD - Cardiology consulted, appreciate their recommendations. BNP elevated at 555. Echo obtained with EF 55%, Normal biventricular systolic function, Mild RV dilation, Biatrial dilation, No significant valvular stenosis or regurgitation. Initiated Bumex 2 mg p.o. twice daily with good response. Had significant urine output. Unmeasured but patient breathing better and had improvement in edema. Cardiology recommended resuming aspirin and statin. Recommend continuing home doses of losartan, spironolactone, Farxiga. Continue Bumex 2 mg p.o. daily after discharge. Reevaluate needs at follow-up. Troponin is negative at this time. Given clinical improvement. Discharge home with further management as an outpatient. Acute Renal Failure - Cr 3.0 here, was 0.8 last year; some improvement with diuresis. Concern for alvin hernandezoneyancy of renal congestion secondary to CHF exacerbation. BUN 46, creatinine 1.7 on morning of discharge. Making good urine. Would benefit from repeat labs at follow-up with cardiology as an outpatient in the next 1 to 2 weeks. Bilateral renal artery duplex with no abnormalities or stenosis. Renal parenchyma appears normal on ultrasound. Opiate use disorder: Continue Suboxone 8/2 mg tablets, 2 tablets daily. Hypothyroid: Continue levothyroxine 200 mcg daily. Continue Prozac 80 mg daily for mood disorder Continue Lipitor 100 mg daily for gout Continue pantoprazole 40 mg nightly for GERD Exam Data for Last 24 hours Vital signs and Labs for Last 24 Hours: Temp Pulse Resp BP Pulse Ox O2 Del Method 97.6 F 71 18 101/60 L 96 Room Air 10/09/24 12:00 10/09/24 12:00 10/09/24 12:00 10/09/24 12:00 10/09/24 12:00 10/09/24 12:00 Laboratory Results - last 24 hr 10/08/24 15:50: Troponin I < 0.01 10/08/24 16:47: Urine Color Yellow, Urine Appearance Clear, Urine pH 6.0, Ur Specific [place] 1.015, Urine Protein Trace, Urine Glucose (UA) 1+, Urine Ketones Negative, Urine Blood 1+ A, Urine Nitrate Negative, Urine Bilirubin Negative, Urine Urobilinogen 0.2, Ur Leukocyte Esterase Negative, Urine RBC 3-5, Urine WBC 3-5, Ur Squamous Epith Cells 5-10, Urine Bacteria Trace 10/08/24 18:50: Troponin I < 0.01 10/09/24 06:22: WBC 4.4 L, RBC 2.48 L, Hgb 7.9 L, Hct 23.9 L, MCV 96.4, MCH 31.9 H, MCHC 33.1, RDW 17.8 H, Plt Count 212, MPV 9.4, Neut % (Auto) 66.4, Lymph % (Auto) 20.0, [place] % (Auto) 10.2 H, Eos % (Auto) 2.5, Baso % (Auto) 0.2, Neut # (Auto) 2.9, Lymph # (Auto) 0.9, [place] # (Auto) 0.5, Eos # (Auto) 0.1, Baso # (Auto) 0.0, Sodium 138, Potassium 3.2 L, Chloride 100, Carbon Dioxide 28, Anion Gap 13.2, BUN 46 H, Creatinine 1.70 H D, Estimated Creat Clear 32, Estimated GFR 31 L, Est GFR ( Amer) 38 L D, Glucose 109 H, Calcium 8.7, Magnesium 1.6 D, Total Bilirubin 0.8, AST 66 H, ALT 26, Alkaline Phosphatase 111, Total Protein 7.2, Albumin 4.0, Globulin 3.2, Albumin/Globulin Ratio 1.3 I & O for Last 24 hours: Intake & Output 10/06/24 10/07/24 10/08/24 10/09/24 23:59 23:59 23:59 23:59 Intake Total 270 / 270 480 / 480 Output Total 0 / 0 600 / 600 Balance 270 / 270 -120 / -120 Weight 127.958 kg 130.635 kg Constitutional Constitutional: no acute distress, obese, chronically ill appearing and cooperative *Routine HEENT Exam Head: Present normocephalic and atraumatic Eye: Present PERRL ENT: Present mucous membranes moist *Routine Neck Exam Neck: Present supple *Routine Respiratory Exam Respiratory: Present CTA bilaterally; Absent accessory muscle use, rhonchi, wheezes or crackles *Routine Cardiovascular Exam Cardiovascular: Present RRR, Normal S1 and Normal S2; Absent murmur, gallop or rubs Comments: Slight improvement in bilateral lower extremity edema feet to flanks *Routine Abdominal Exam Abdominal: Present soft; Absent tenderness *Routine Rectal Exam Patient deferred: visual exam *Routine Exam Patient deferred: external exam *Routine Extremities Exam Extremities: Present pulses intact; Absent cyanosis or edema *Routine Skin Exam Skin: Present intact; Absent erythema or wounds *Routine Neurological Exam Neurological: Present alert, oriented X3 and moving all extremities; Absent altered mental status Routine Psychiatric Exam Psychiatric: Present cooperative Results Data Completed and Pending Labs on day of discharge: Labs from last 24 hours 10/09/24 10/08/24 10/08/24 06:22 18:50 16:47 WBC 4.4 L RBC 2.48 L Hgb 7.9 L Hct 23.9 L MCV 96.4 MCH 31.9 H MCHC 33.1 RDW 17.8 H Plt Count 212 MPV 9.4 Neut % (Auto) 66.4 Lymph % (Auto) 20.0 [place] % (Auto) 10.2 H Eos % (Auto) 2.5 Baso % (Auto) 0.2 Neut # (Auto) 2.9 Lymph # (Auto) 0.9 [place] # (Auto) 0.5 Eos # (Auto) 0.1 Baso # (Auto) 0.0 Sodium 138 Potassium 3.2 L Chloride 100 Carbon Dioxide 28 Anion Gap 13.2 BUN 46 H Creatinine 1.70 H D Estimated Creat Clear 32 Estimated GFR 31 L Est GFR ( Amer) 38 L D Glucose 109 H Calcium 8.7 Magnesium 1.6 D Total Bilirubin 0.8 AST 66 H ALT 26 Alkaline Phosphatase 111 Troponin I < 0.01 Total Protein 7.2 Albumin 4.0 Globulin 3.2 Albumin/Globulin Ratio 1.3 Urine Color Yellow Urine Appearance Clear Urine pH 6.0 Ur Specific [place] 1.015 Urine Protein Trace Urine Glucose (UA) 1+ Urine Ketones Negative Urine Blood 1+ A Urine Nitrate Negative Urine Bilirubin Negative Urine Urobilinogen 0.2 Ur Leukocyte Esterase Negative Urine RBC 3-5 Urine WBC 3-5 Ur Squamous Epith Cells 5-10 Urine Bacteria Trace 10/08/24 15:50 WBC RBC Hgb Hct MCV MCH MCHC RDW Plt Count MPV Neut % (Auto) Lymph % (Auto) [place] % (Auto) Eos % (Auto) Baso % (Auto) Neut # (Auto) Lymph # (Auto) [place] # (Auto) Eos # (Auto) Baso # (Auto) Sodium Potassium Chloride Carbon Dioxide Anion Gap BUN Creatinine Estimated Creat Clear Estimated GFR Est GFR ( Amer) Glucose Calcium Magnesium Total Bilirubin AST ALT Alkaline Phosphatase Troponin I < 0.01 Total Protein Albumin Globulin Albumin/Globulin Ratio Urine Color Urine Appearance Urine pH Ur Specific [place] Urine Protein Urine Glucose (UA) Urine Ketones Urine Blood Urine Nitrate Urine Bilirubin Urine Urobilinogen Ur Leukocyte Esterase Urine RBC Urine WBC Ur Squamous Epith Cells Urine Bacteria DS: Diagnosis Discharge Diagnosis (1) Hypokalemia: Status: Acute Code(s): E87.6 - Hypokalemia (2) Hypomagnesemia: Status: Acute Code(s): E83.42 - Hypomagnesemia (3) Morbid obesity: Status: Chronic Code(s): E66.01 - Morbid (severe) obesity due to excess calories (4) HLD (hyperlipidemia): Status: Chronic Code(s): E78.5 - Hyperlipidemia, unspecified Qualifiers: Hyperlipidemia type: mixed hyperlipidemia Qualified Code(s): E78.2 - Mixed hyperlipidemia (5) HHD (hypertensive heart disease): Status: Chronic Code(s): I11.9 - Hypertensive heart disease without heart failure Qualifiers: Heart failure chronicity: acute on chronic Heart failure presence: with heart failure Heart failure type: diastolic Qualified Code(s): I11.0 - Hypertensive heart disease with heart failure; I50.33 - Acute on chronic diastolic (congestive) heart failure (6) CAD (coronary artery disease): Status: Chronic Code(s): I25.10 - Atherosclerotic heart disease of [place] coronary artery without angina pectoris Qualifiers: Associated angina: without angina Coronary Disease-Associated Artery/Lesion type: [place] artery [place] vs. transplanted heart: [place] heart Qualified Code(s): I25.10 - Atherosclerotic heart disease of [place] coronary artery without angina pectoris (7) Hypothyroidism: Status: Chronic Code(s): E03.9 - Hypothyroidism, unspecified Qualifiers: Hypothyroidism type: unspecified Qualified Code(s): E03.9 - Hypothyroidism, unspecified (8) Stented coronary artery: Status: Chronic Code(s): Z95.5 - Presence of coronary angioplasty implant and graft (9) Chronic kidney disease (CKD) stage G3a/A1, moderately decreased glomerular filtration rate (GFR) between 45-59 mL/min/1.73 square meter and albuminuria creatinine ratio less than 30 mg/g: Status: Chronic Code(s): N18.31 - Chronic kidney disease, stage 3a (10) Acute heart failure with preserved ejection fraction (HFpEF): Status: Acute Code(s): I50.31 - Acute diastolic (congestive) heart failure (11) Renal insufficiency: Status: Acute Code(s): N28.9 - Disorder of kidney and ureter, unspecified Meds Home Medications and Allergies Home Medications ?Medication ?Instructions ?Recorded ?Confirmed ?Type buprenorphine 8 mg-naloxone 2 mg 2 tab sublingual DAILY 03/17/22 10/08/24 History sublingual tablet atorvastatin 20 mg tablet (Lipitor) 20 mg PO DAILY #30 tabs 04/23/24 10/08/24 Rx ergocalciferol (vitamin D2) 1,250 50,000 unit PO WEEKLY 06/10/24 10/08/24 History mcg (50,000 unit) capsule fluoxetine 40 mg capsule 80 mg PO DAILY 06/10/24 10/08/24 History hydroxyzine pamoate 25 mg capsule 25 mg PO HSP PRN Insomnia 06/10/24 10/08/24 History levothyroxine 200 mcg tablet 200 mcg PO DAILY 06/10/24 10/08/24 History omeprazole 40 mg capsule,delayed 40 mg PO DAILY 06/10/24 10/08/24 History release allopurinol 100 mg tablet 100 mg PO DAILY 30 days #30 tabs 06/12/24 10/08/24 Rx spironolactone 100 mg tablet 100 mg PO DAILY #90 tabs 08/20/24 10/08/24 Rx dapagliflozin propanediol 10 mg 10 mg PO DAILY 10/08/24 10/08/24 History tablet (Farxiga) losartan 25 mg tablet 25 mg PO DAILY 10/08/24 10/08/24 History medroxyprogesterone 2.5 mg tablet 2.5 mg PO DAILY 10/08/24 10/08/24 History bumetanide 1 mg tablet 2 mg (2 x 1 mg) PO DAILY 30 days 10/09/24 Rx #60 tabs potassium chloride 20 mEq 40 meq (2 x 20 mEq) PO DAILY 30 10/09/24 Rx tablet,extended days #60 tabs release(part/cryst) (Klor-Con M) New Prescriptions to Start Prescriptions: Adam Paris potassium chloride [Klor-Con M20] Adam Hester Allergies Allergy/AdvReac Type Severity Reaction Status Date / Time clarithromycin (From BIAXIN) Allergy Mild Verified 05/21/24 10:12 amoxicillin Allergy Verified 05/21/24 10:12 Discharge Plan Disposition Patient Disposition: Home, Self-Care Condition: Fair Follow up Plan Follow up with: Cornell Loco PA [Physician Quality Improvement Coordinator] - 10/23/24 1:30 pm Janice Fitzpatrick PA [Primary Care Provider] - Enter time for follow up (please call for appointment) Prescriptions/Medication Reconciliation: New potassium chloride [Klor-Con M20] 20 mEq Tablet,Er Particles/Crystals 40 meq PO DAILY 30 Days Qty: 60 0RF bumetanide 1 mg Tablet 2 mg PO DAILY 30 Days Qty: 60 0RF Continued buprenorphine-naloxone 8-2 mg tablet, sublingual 2 tab SL DAILY atorvastatin [Lipitor] 20 mg tablet 20 mg PO DAILY Qty: 30 2RF spironolactone 100 mg tablet 100 mg PO DAILY Qty: 90 3RF fluoxetine 40 mg capsule 80 mg PO DAILY omeprazole 40 mg capsule,delayed release(DR/EC) 40 mg PO DAILY levothyroxine 200 mcg tablet 200 mcg PO DAILY ergocalciferol (vitamin D2) 1,250 mcg (50,000 unit) capsule 50,000 unit PO WEEKLY hydroxyzine pamoate 25 mg capsule 25 mg PO HSP PRN (Reason: Insomnia) allopurinol 100 mg Tablet 100 mg PO DAILY 30 Days Qty: 30 0RF medroxyprogesterone 2.5 mg tablet 2.5 mg PO DAILY dapagliflozin propanediol [Farxiga] 10 mg tablet 10 mg PO DAILY Held losartan 25 mg tablet 25 mg PO DAILY Hold Instructions: pending follow-up with PCP Discontinued potassium chloride 20 mEq tablet,ER particles/crystals 20 meq PO DAILY Qty: 30 2RF torsemide 100 mg tablet 100 mg PO DAILY Problem Reconciliation Problems Reviewed?: Yes Patient Discharge Instructions ACTIVITY: Continue current activity DIET: continue same diet Patient Instructions: DI for Kidney Failure, DI for Hypokalemia, DI for Hypomagnesemia Print Language: Bulgarian Providers Primary Care Provider: Janice Fitzpatrick Admit Provider: Adam Hester Attending Provider: Adam Hester
[2024-10-09 16:00] VITALS: PULSE 70
[2024-10-09] MEDS: SPIRONOLACTONE 25MG TABLET 25 MG PO (16:07)
--- NOTE | 2024-10-10 09:55 | SW/DCPLANNER ---
Spoke with patient on the phone. Patient stated that she doing well just still very tired. Patient stated that she has 2 upcoming appointments coming up. Patient stated that she will call with her primary care provider to follow up with an upcoming appoinment. Patient stated that she is going to call [facility] and have her new medicine delivered today. Patient stated that she has no concerns or questions at this time. Nancy Rhodes
== END 2024-10-09 16:49 | disposition home or self-care (01) ==
LOC: ER 14:25 → 2ND 14:27
PROVIDERS: Physician Assistant; Admitting Provider Internal Medicine Adolescent Medicine; Emergency Provider Emergency Medicine; PCP Physician Assistant; Visit Provider Internal Medicine Adolescent Medicine
DX: I12.9 Hypertensive chronic kidney disease with stage 1 through stage 4 chronic kidney disease, or unspecified chronic kidney disease (principal); I50.43 Acute on chronic combined systolic (congestive) and diastolic (congestive) heart failure; N18.31 Chronic kidney disease, stage 3a; E87.6 Hypokalemia; E83.42 Hypomagnesemia; N17.9 Acute kidney failure, unspecified; E66.01 Morbid (severe) obesity due to excess calories; E78.2 Mixed hyperlipidemia; I25.10 Atherosclerotic heart disease of native coronary artery without angina pectoris; E03.9 Hypothyroidism, unspecified; Z95.5 Presence of coronary angioplasty implant and graft; I70.1 Atherosclerosis of renal artery; E55.9 Vitamin D deficiency, unspecified; Z68.42 Body mass index [BMI] 45.0-49.9, adult; Z79.899 Other long term (current) drug therapy
CPT/HCPCS: 36415; 71046; 71250; 76770; 80053; 81001; 83735; 83880; 84484; 85025; 93005; 93306; 93976; 99291; G0378; J0574; J1644; J3475

== ENCOUNTER 2024-11-01 09:39 | Outpatient (CLI) | payer OTHER, SELFPAY | END 2024-11-01 23:59 | disposition home or self-care (01) | LOC: RT 09:40 | PROVIDERS: PCP Physician Assistant; Visit Provider Physician Assistant | DX: R01.1 Cardiac murmur, unspecified (principal) | CPT/HCPCS: 93018; 93350 ==

== ENCOUNTER 2024-11-12 07:23 | Emergency (ER) | payer OTHER, SELFPAY ==
[2024-11-12] VITALS (8 sets, daily range): BP systolic 96–138; BP diastolic 51–72; PULSE 73–86; RESP 13–18; TEMP 36.8; O2SAT 91–100; BMI 48.2
--- NOTE | 2024-11-12 07:24 | ECG_ITS ---
APPROVED REPORT Exam: Resting ECG HR:89 bpm ECG Measurements Heart Rate 89 AXES QRSd 100 QRS -29 QT 389 T 67 QTc 436 Conclusion Sinus rhythm Leftward axis Electronically signed by : ZULEMA NAIK, 11/13/2024 07:24:32
--- NOTE | 2024-11-12 07:25 | XR_ITS ---
FINAL REPORT CLINICAL HISTORY: cp soa COMPARISON: None FINDINGS: A portable view of the chest is obtained. Cardiomegaly is present. There is a left base opacity present, that likely represents atelectasis. There is no pleural effusion or pneumothorax. IMPRESSION: No acute process on this portable exam. Cardiomegaly Reviewed, Interpreted and Dictated by Carmina Dawn MD Transcribed by Nessa Verdugo Authenticated and [facility]
[2024-11-12] MEDS: ASPIRIN 81MG CHEWABLE TABLET 324 MG PO (07:33)
[2024-11-12 07:44] LABS: Basophils % 0.2 % (0.1-2.0); Eosinophils # 0.2 K/mm3 (0.0-0.4); Eosinophils % 4.4 % (0.1-12.0); Hematocrit 30.1 % (37.0-47.0); Hemoglobin 9.6 g/dL (12.2-16.2); Lymphocytes # 1.2 K/mm3 (0.7-4.5); Lymphocytes % 23.6 % (10-50); Mean Corpuscular HGB Conc 31.9 g/dL (31.8-35.4); Mean Corpuscular Hemoglobin 32.9 pg (27.0-31.2); Mean Corpuscular Volume 103.1 fl (81-99); Mean Platelet Volume 9.4 fl (7.4-10.4); Monocytes # 0.5 K/mm3 (0.1-1.0); Monocytes % 9.1 % (1.7-9.3); Neutrophils # 3.3 K/mm3 (1.8-7.8); Neutrophils % 62.5 % (37.0-80.0); Platelet Count 293 K/mm3 (142-424); Red Blood Count 2.92 M/mm3 (4.20-5.40); Red Cell Distribution Width 15.2 % (11.5-17.5); White Blood Count 5.3 K/mm3 (4.8-10.8)
--- NOTE | 2024-11-12 07:46 | ED_ITS ---
Discharge Plan Disposition Patient Disposition: Home, Self-Care Chief Complaint: Chest Pain Prescriptions Prescriptions: No Action buprenorphine-naloxone 8-2 mg tablet, sublingual 2 tab SL DAILY atorvastatin [Lipitor] 20 mg tablet 20 mg PO DAILY Qty: 30 2RF spironolactone 100 mg tablet 100 mg PO DAILY Qty: 90 3RF fluoxetine 40 mg capsule 80 mg PO DAILY omeprazole 40 mg capsule,delayed release(DR/EC) 40 mg PO DAILY levothyroxine 200 mcg tablet 200 mcg PO DAILY ergocalciferol (vitamin D2) 1,250 mcg (50,000 unit) capsule 50,000 unit PO WEEKLY hydroxyzine pamoate 25 mg capsule 25 mg PO HSP PRN (Reason: Insomnia) allopurinol 100 mg Tablet 100 mg PO DAILY 30 Days Qty: 30 0RF medroxyprogesterone 2.5 mg tablet 2.5 mg PO DAILY dapagliflozin propanediol [Farxiga] 10 mg tablet 10 mg PO DAILY potassium chloride [Klor-Con M20] 20 mEq Tablet,Er Particles/Crystals 40 meq PO DAILY 30 Days Qty: 60 0RF bumetanide 1 mg Tablet 2 mg PO DAILY 30 Days Qty: 60 0RF Referrals Follow up/Referrals: Provider,Referral, MD [Referring] - See instructions Activity Restrictions/Add. Instructions Additional Instructions/Restrictions: Call your family doctor to establish care for this visit to the emergency department and schedule follow-up within 48 hours to ensure improvement. If you have any worsening of your condition or any other concerning signs or symptoms, return to the emergency department or your primary care doctor for further evaluation. Follow-up with cardiology regarding this visit to the emergency department and further evaluation Clinical Impressions Clinical Impression: Chest pain Print Language Print Language: Scottish Discharge ED Provider: Isaac Dugan HPI General Chief Complaint: Chest Pain Stated Complaint: chest pain Time Seen by Provider: 11/12/24 07:24 History of Present Illness HPI narrative: Please note that above description of symptoms, in this electronic medical record under categorization of recalled from ER triage doctor by RN are reflective of an initial nursing assessment, however, is not reflective of my full history and physical exam that was personally taken and clarified. Consequentially, this preceding description of symptoms, which may include the patient's categorized chief complaint in the EMR, do not reflect my personal clinical impression, and the ultimate description of history of present illness and patient stated complaints should be deferred to this section of the note. Unless stated otherwise or congruent with this section of the note, additional signs, symptoms, or incongruence should be interpreted as inaccurate with my clinical impression. Related Data Home Medications ?Medication ?Instructions ?Recorded ?Confirmed buprenorphine 8 mg-naloxone 2 mg 2 tab sublingual DAILY 03/17/22 11/12/24 sublingual tablet ergocalciferol (vitamin D2) 1,250 50,000 unit PO WEEKLY 06/10/24 11/12/24 mcg (50,000 unit) capsule fluoxetine 40 mg capsule 80 mg PO DAILY 06/10/24 11/12/24 hydroxyzine pamoate 25 mg capsule 25 mg PO HSP PRN Insomnia 06/10/24 11/12/24 levothyroxine 200 mcg tablet 200 mcg PO DAILY 06/10/24 11/12/24 omeprazole 40 mg capsule,delayed 40 mg PO DAILY 06/10/24 11/12/24 release dapagliflozin propanediol 10 mg 10 mg PO DAILY 10/08/24 11/12/24 tablet (Farxiga) medroxyprogesterone 2.5 mg tablet 2.5 mg PO DAILY 10/08/24 11/12/24 Previous Rx's ?Medication ?Instructions ?Recorded atorvastatin 20 mg tablet (Lipitor) 20 mg PO DAILY #30 tabs 04/23/24 allopurinol 100 mg tablet 100 mg PO DAILY 30 days #30 tabs 06/12/24 spironolactone 100 mg tablet 100 mg PO DAILY #90 tabs 08/20/24 bumetanide 1 mg tablet 2 mg (2 x 1 mg) PO DAILY 30 days 10/09/24 #60 tabs potassium chloride 20 mEq 40 meq (2 x 20 mEq) PO DAILY 30 10/09/24 tablet,extended days #60 tabs release(part/cryst) (Klor-Con M) Allergies Allergy/AdvReac Type Severity Reaction Status Date / Time clarithromycin (From BIAXIN) Allergy Mild Verified 05/21/24 10:12 amoxicillin Allergy Verified 05/21/24 10:12 [facility] Disclaimer: The information contained in this section may have been updated after the patient was seen, as this information can be updated by other users. Medical History Symptomatic cholelithiasis GERD (gastroesophageal reflux disease) Asthma IBS (irritable bowel syndrome) Typical angina Depressed Anxiety Restless legs syndrome Insomnia Daytime somnolence Abnormal EKG Unstable angina Dizziness Atypical angina Claudication Chest pain Gastroesophageal reflux disease Preoperative clearance Diastolic dysfunction Vitamin D deficiency Hypothyroidism HLD (hyperlipidemia) HHD (hypertensive heart disease) CAD (coronary artery disease) Neck Pain Radiculopathy affecting upper extremity Surgical History History of laparoscopic cholecystectomy S/P tonsillectomy and adenoidectomy Stented coronary artery H/O lithotripsy History of hip replacement Stented coronary artery Family History Other Family history of COPD (chronic obstructive pulmonary disease) Family history of cancer Family history of myocardial infarction Social History Smoking Status: Never smoker second hand exposure: No alcohol intake: never substance use type: denies use current occupational status: employed and unemployed Travel in the last 8 weeks: None household members: none housing: house 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 current occupational exposures/hazards: No caffeine: Yes Have you lived/traveled outside [place] in past 30 days?: No Contact w/someone who lives/traveled outside US past 30 days?: No Exposure to someone with infectious disease in past 14 days?: No Do you have a fever (greater than 100.4 F or 38 C)?: No Have you tested positive for COVID-19: No Exposed to someone with COVID-19 in past 14 days?: No Do you have a sore throat?: No Do you have a cough?: No Do you have any weakness?: No Do you have any diarrhea?: No Are you experiencing any unusual bleeding?: No Do you have any muscle aches/pain?: No Do you have any abdominal pain?: No Are you experiencing loss of taste or smell?: No Other Medical History Have you received the Flu Vaccine for this season: No Have you received the Pneumonia Vaccine: No ROS Obtained: Yes All systems reviewed & no additional complaints except as documented Physical Exam General General appearance: alert, in no apparent distress and obese Neck Neck exam: Present trachea midline Chest Chest inspection: Present normal inspection and symmetric chest wall rise Respiratory Respiratory exam: Present normal lung sounds bilaterally and other (speaking in full sentences); Absent respiratory distress, wheezes, stridor, accessory muscle use or prolonged expiratory phase Cardiovascular Cardiovascular exam: Present regular rate, normal rhythm and other (Pulses equal and symmetric in upper and lower extremities) Extremities Exam Extremities exam: Present edema (1+ nonpitting) Neurological Exam Neurological exam: Present alert, oriented X3 and CN II-XII intact Skin Skin exam: Present warm and dry; Absent cyanosis, diaphoresis or pallor HEART Score HEART Score HEART Score assessment performed?: Yes History (anamnesis): Slightly suspicious ECG: Non-specific disturbance Age: 45-65 years Risk factors: 3 or more risk factors Troponin: </= normal limit HEART Score: 4 Critical Care Critical Care Time Critical Care Time: No Medical Decision Making Medical Records Medical records reviewed: Yes I reviewed the patient's medical records. Wolfgang Inquiry Pt receiving controlled substance: No Wolfgang was queried for this patient: No Vital Signs Vital Signs: 11/12/24 07:25 11/12/24 08:00 11/12/24 08:30 Temperature 98.3 F Temperature Source Oral Pulse Rate 80 73 Pulse Rate [Left Radial] 86 Respiratory Rate 16 13 16 Blood Pressure 96/52 L 104/63 L Blood Pressure [Right Arm] 96/64 L Blood Pressure Mean [Right Arm] 74 02 Sat by Pulse Oximetry 99 100 Oxygen Delivery Method Room Air 11/12/24 09:00 11/12/24 09:45 11/12/24 10:00 Temperature Temperature Source Pulse Rate 82 76 82 Pulse Rate [Left Radial] Respiratory Rate 18 16 17 Blood Pressure 138/72 103/61 L 104/58 L Blood Pressure [Right Arm] Blood Pressure Mean [Right Arm] 02 Sat by Pulse Oximetry 91 L 97 95 Oxygen Delivery Method Lab Data Labs: Lab Results 11/12/24 07:27: WBC 5.3, RBC 2.92 L, Hgb 9.6 L, Hct 30.1 L, MCV 103.1 H, MCH 32.9 H, MCHC 31.9, RDW 15.2, Plt Count 293, MPV 9.4, Neut % (Auto) 62.5, Lymph % (Auto) 23.6, Bullock % (Auto) 9.1, Eos % (Auto) 4.4, Baso % (Auto) 0.2, Neut # (Auto) 3.3, Lymph # (Auto) 1.2, Bullock # (Auto) 0.5, Eos # (Auto) 0.2, Baso # (Auto) 0.0, PT 11.0, INR 0.98, APTT 26.3, Sodium 140, Potassium 3.2 L, Chloride 99, Carbon Dioxide 30, Anion Gap 14.2, BUN 15, Creatinine 1.20 H, Estimated GFR 47 L, Est GFR ( Amer) 56 L, Glucose 151 H, Calcium 9.1, Total Bilirubin 0.8, AST 36, ALT 25, Alkaline Phosphatase 89, Troponin I < 0.01, NT-Pro-B Natriuret Pep 387 H, Total Protein 7.3, Albumin 4.2, Globulin 3.1, Albumin/Globulin Ratio 1.4 11/12/24 10:03: Troponin I < 0.01 11/12/24 07:27 11/12/24 07:27 Response Orders (Tests/Meds): ED MEDICATIONS Discontinued Medications Generic Name Dose Route Start Last Admin Trade Name Freq PRN Reason Stop Dose Admin Aspirin 324 mg 11/12/24 07:25 11/12/24 07:33 Aspirin 81mg Chewable Tablet PO 11/12/24 07:26 324 mg ONCE ONE Administration Potassium Chloride 60 meq 11/12/24 08:31 11/12/24 08:57 Potassium Chloride 20meq Tab PO 11/12/24 08:32 60 meq ONCE ONE Administration ORDERS Category Date Time Status XR chest portable Stat Exams 11/12/24 07:25 Completed Complete Blood Count Auto Diff Stat Lab 11/12/24 07:27 Completed Comprehensive Metabolic Panel Stat Lab 11/12/24 07:27 Completed NT Pro Brain Natriuretic Pep. Stat Lab 11/12/24 07:27 Completed PT INR [Prothrombin Time INR] Stat Lab 11/12/24 07:27 Completed PTT [Activated Partial Thrombo Time] Stat Lab 11/12/24 07:27 Completed Troponin I Q3H Lab 11/12/24 10:03 Completed Troponin I Q3H Lab 11/12/24 13:30 Ordered Troponin I Stat Lab 11/12/24 07:27 Completed MDM Narrative Medical Decision Narrative: 53-year-old female presenting with chest pain. Patient states that she has a history of hypertension, hyperlipidemia, CHF on water pills, and potassium, CAD status post stenting. She states that last night, 11/07 4 in the PM, or earlier today, 11/12 in the early a.m., she started having chest pain. Left- sided radiating around her chest to her shoulder. Does not radiate through. No associated shortness of breath, nausea, vomiting, diaphoresis, syncope, cough, fevers, chills, or symptoms currently. States that pain is not exertional, not positional. Does not do daily weigh-in's, does not know if she is significantly gained or lost weight due to her diuretic medication in the recent past. Currently 0 out of 10 pain. States that flares up, is moderate in intensity, stabbing. History was obtained via conversation with patient. On arrival, patient hemodynamically stable, alert, oriented x4, appropriate, GCS 15, moving all extremities spontaneously, pupils equal and reactive to light. Full physical exam performed and significant for clinically well-appearing female who speaking full sentences in no acute distress. Obese. Lungs are clear, no evidence of decreased or dependent lung sounds. Cardiac exam with slight apical murmur2 out of 6. 1+ lower extremity nonpitting edema. Differential includes microvascular coronary artery disease, CHF, ACS, GA, coronary artery dissection, pneumothorax, PE, dissection, pericarditis, myocarditis, pneumothorax, aortic aneurysm, pneumonia, bronchitis, among others. Patient was given 24 mg aspirin for symptomatic management and correction of underlying abnormalities. Patient placed on continuous cardiac monitoring and continuous pulse ox with initial blood pressure 94/64, heart rate 86, saturation 99% on room air. Independent interpretation of EKG shows sinus rhythm 89 bpm with MI interval 180 ms, QRS 100, QTc 436. Leftward axis. T wave inversions in aVL with no reciprocal changes or contiguous changes, nonspecific abnormality. Workup independently interpreted and significant for nonactionable CBC or chemistry other than mild hypokalemia which was repleted. Stable CKD, actually improved from previous. BNP improved from previous as well as negative initial troponin. On independent interpretation of imaging, cardiomegaly with no overt edema. She does have pulmonary vascular congestion, but no effusions. See radiology read for full review of final results. Reevaluation, patient still has not had any symptoms since she has been here in the emergency department. Heart score 4. Patient was placed in observation beginning at 7:45 AM in order to not evolving GA's with delta troponins and determine need for admission versus home- going. The patient was provided serial exams, cardiac monitoring while awaiting results. Independent interpretation of results demonstrated negative delta troponin. On reevaluation, patient still remains asymptomatic. At this time, I feel patient is appropriate for discharge. Total observation time 3 hours. Because patient at baseline without signs or symptoms of clinical decompensation, deemed appropriate for discharge. Results were relayed to patient who voiced understanding and were agreeable to outpatient management and follow up. I discussed my clinical impression with patient and answered all questions. At this time, the evidence for any other entities in the differential is insufficient to warrant any further testing or ED observation. This was explained as well. Advisory was given that persistent or worsening symptoms require further evaluation. I confirmed the understanding of this discussion. 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 Electronic football pad repairer of the spoken language may permit errors. Although I have reviewed the note, some errors may still exist.
[2024-11-12 07:49] LABS: Alanine Aminotransferase 25 U/L (12-78); Albumin Level 4.2 g/dl (3.5-5.0); Albumin/Globulin Ratio 1.4 (1.1-1.8); Alkaline Phosphatase 89 U/L (38-126); Anion Gap 14.2 mEq/L (5-15); Aspartate Amino Transferase 36 U/L (14-36); Bilirubin,Total 0.8 mg/dl (0.2-1.3); Blood Urea Nitrogen 15 mg/dl (7-17); Calcium 9.1 mg/dl (8.4-10.2); Carbon Dioxide 30 mmol/L (22.0-30.0); Chloride 99 mmol/L (98-107); Estimated Glomerular Filt Rate 47 ml/min (>60); GFR (African American) 56 ML/MIN (>60); Globulin 3.1 g/dL (1.3-3.2); Glucose 151 mg/dl (74-100); Potassium 3.2 mmoL/L (3.5-5.1); Sodium 140 mmol/L (136-145); Total Protein,Serum 7.3 g/dl (6.3-8.2)
[2024-11-12 07:52] LABS: Activated Partial Thrombo Time 26.3 seconds (22.8-30.6); INR 0.98 (0.9-1.1)
[2024-11-12 08:00] LABS: NT Pro Brain Natriuretic Pep. 387 pg/mL (0-125)
[2024-11-12 08:06] LABS: Troponin I < 0.01 ng/ml (0.00-0.034)
[2024-11-12] MEDS: POTASSIUM CHLORIDE 20MEQ TAB 60 MEQ PO (08:57)
--- NOTE | 2024-11-12 09:08 | PC.NURSE ---
updated on poc, dr crawford given to pt
[2024-11-12 10:31] LABS: Troponin I < 0.01 ng/ml (0.00-0.034)
== END 2024-11-12 11:10 | disposition home or self-care (01) ==
PROVIDERS: Emergency Provider Emergency Medicine; PCP Physician Assistant
DX: R07.9 Chest pain, unspecified (principal)
CPT/HCPCS: 71045; 80053; 83880; 84484; 85025; 85610; 85730; 93005; 99284

== ENCOUNTER 2025-02-10 16:16 | Emergency (ER) | payer OTHER, SELFPAY ==
--- OUTSIDE RECORDS SUMMARY | 2025-02-10 16:23 | XMS_ITS | Encounter Summary ---
Author Organization [facility] Address [address] [place] [address] Care Team Providers Care Associate Professor Of Anthropology Name Role Phone Janice Fitzpatrick Primary Care Provider [phone] Reason for Referral * Consultation (Routine) - Closed Specialty Diagnoses / Procedures Referred By Jaylin jimenez Referred To Contact Vascular Surgery Diagnoses Hepatic artery aneurysm (CMS/HCC) Janice Fitzpatrick PA [address] [place] [address] Phone: tel: fax: Vascular Surgery [address] [place] [address] Phone: tel: Referral ID Status Reason Start Date Expiration Date V isits Requested Visits Authorized [id number] Closed Specialty Services Required 01/26/2022 07/28/2023 1 1 Encounter Details Date Type Department Care Team (Late st Contact Info) Description 01/26/2022 Community Orders Community Practice [address] [place] [address] Janice Fitzpatrick PA [address] [place] [address] Hepatic artery aneurysm (CMS/HCC) (Primary Dx) Social History Tobacco Use Types Packs/Day Years Used Date Smoking Tobacco: Never Smokeless Tobacco: Never Alcohol Use Standard Drinks/Week Comments No 0 (1 standard drink = 0.6 oz pur e alcohol) Comments Unknown Sex and Gender Information Value Date Recorded Sex Assigned at Female 04/21/2024 2:15 PM EDT Legal Sex Female 7:37 PM EDT Gender Identity Not on file Sexual Orientation Not on file documented as of this encounter Plan of Treatment Upcoming Encounters Date Type Department Care Team (Late st Contact Info) Description 02/28/2025 9:40 AM EDT Office Visit [facility] [address] [place] [address] Sadia Daniel, BOTTLE WASHER MACHINE [address] [facility] [address] [place] [id number] Scheduled Referrals Name Type Priority Associated Diagnoses Order Schedule Ambulatory referral to Vascular Surgery Outpatient Referral Routine Hepatic artery aneurysm (CMS/HCC) Expected: 01/26/2022, Expires: 07/28/2023 documented as of this encounter Visit Diagnoses Diagnosis 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
--- OUTSIDE RECORDS SUMMARY | 2025-02-10 16:23 | XMS_ITS | Data Portability ---
Author Organization [place] [employer] [place] - [place] Address [address] [place] [address] Assessment No assessment recorded. Plan of Treatment Reminders Order Date Submit Date Provider Last Modified By Organization Details Last Modified Time Details Appointments FOLLOW UP 15 2024 08:30A Brenden Fitzpatrick PA-C Not available Not available Not available Lab CBC w/ auto diff [address] (Lab Registration) , [address] [place] [address] , [place], [address], 10/18/2024 13:14:37 BMP, serum or plasma [address] (Lab Registration) , [address] [place] [address] , [place], [address], 10/18/2024 13:14:37 BMP, serum or plasma 2024 025 [facility], [address] [place] [address], [place], [address], 09/17/2024 12:08:08 rapid flu (A+B) 2023 024 [facility], [address] [facility], [place], [address], 08/12/2024 16:19:25 rapid SARS CoV 2 Ag, QL, IA, upper respirato ry specimen 2023 024 [facility], [address] [facility], [place], [address], 08/12/2024 16:19:14 Referral None recorded. Procedures electroca rdiogram, routine ECG, 12 leads min; interpret ation and report (PROC) 2024 025 [facility], [address], [place], [address], 10/15/2024 11:45:27 stress echocardi ogram (PROC) [address] (Scheduling), [address], [place], [address], 12/16/2024 12:24:47 colonosco py screening (PROC) 2024 025 [facility] Karlos Draper MD, [address], [place], [address], 12/11/2024 11:27:50 Surgeries None recorded. Imaging XR, lumbar spine - fall, LBP, left hip pain s/p right hip replaceme nt [address] (Scheduling), [address], [place], [address], 09/26/2024 17:43:44 XR, hip + pelvis, bilateral - fall, lbp, hip pain, s/p right hip replaceme nt 2024 025 [facility] (Scheduling), [address], [place], [address], 09/24/2024 17:12:02 MAMMO, screening , bilateral - first available appt [address] (Scheduling), [address], [place], [address], 07/11/2024 11:56:00 Medication Orders Zithromax Z-Russel 250 mg tablet 2023 025 [facility], [address] [place] [address] [place], [id number], 09/16/2024 10:30:20 prednison e 20 mg tablet 2023 025 [facility], [address] [place] [address] [place], [id number], 09/16/2024 10:30:00 albuterol sulfate HFA 90 mcg/actua tion aerosol inhaler 2023 024 [facility], [address] [place] [address] [place], [id number], 08/12/2024 15:21:02 torsemide 100 mg tablet [address], [address] [place] [address], [id number], 09/17/2024 14:48:58 diclofena c 1 % topical gel 2023 024 [facility], [address] [place] [address] [place], [id number], 08/12/2024 15:20:50 Entresto 24 mg-26 mg tablet 2023 024 [facility], [address] [place] [address], [id number], 06/14/2024 13:46:17 Patient TargetsNo targets recorded. Patient Instructions Encounter Date Encounter Id Patient Instructions Last Modified By Organization Details Last Modified Time 06/14/2024 [id number] mammogram: about this test Not available 06/14/2024 11:23:37 08/12/2024 [id number] cough: care instructions [email or web address] Not available 08/12/2024 15:06:27 bronchitis: care instructions Not available 08/12/2024 15:19:12 heart failure: care instructions [email or web address] Not available 08/12/2024 15:19:12 learning about heart failure [email or web address] Not available 08/12/2024 15:19:13 09/16/2024 [id number] heart failure: care instructions [email or web address] Not available 09/16/2024 15:45:25 learning about heart failure [email or web address] Not available 09/16/2024 15:45:25 10/08/2024 [id number] low blood pressure: care instructions Not available 10/08/2024 09:05:46 heart murmur: care instructions Not available 10/08/2024 09:05:46 Reason for Referral None Reported. Results Created Date Observation Date Name Description Value Unit Range Abnormal Flag Note LastModifiedBy Organization Detail LastModifiedTime 08/12/20 24 08/12/2024 rapid SARS CoV 2 Ag, QL, IA, upper respi rator y speci men SARS CoV Ag negati ve Not Available [address], [address], 08/12/2024 15:05:57 08/12/20 24 08/12/2024 rapid flu (A+B) Flu A negati ve Not Available [address], [address], 08/12/2024 15:05:53 08/12/20 24 08/12/2024 rapid flu (A+B) Flu B negati ve Not Available [address], [address], 08/12/2024 15:05:53 09/16/19 25 09/17/2024 BASIC METAB OLIC PANEL (8) glucose COMMEN T mg/dL Test not perfo rmed. Serum was in conta ct with cells when recei asha which will make the resul t inacc urate . Not Available [facility] ([facility]) [address] [place], [address], 09/17/2024 12:08:08 09/16/1909/17/2024 BASIC METAB OLIC PANEL (8) BUN 34 mg/dL 6-24 above high normal Not Available [facility] ([facility]) [address] [place], [address], 09/17/2024 12:08:08 09/16/19 25 09/17/2024 BASIC METAB OLIC PANEL (8) creatinine 2.45 mg/dL 0.57-1 .00 above high normal Not Available [facility] ([facility]) [address] [place], [address], 09/17/2024 12:08:08 09/16/1909/17/2024 BASIC METAB OLIC PANEL (8) eGFR 23 mL/mi n/1.7 3 >59 below low normal Not Available [facility] ([facility]) [address] [place], [address], 09/17/2024 12:08:08 09/16/1909/17/2024 BASIC METAB OLIC PANEL (8) BUN/creatini ne ratio 14 9-23 normal Not Available [facility] ([facility]) [address] [place], [address], 09/17/2024 12:08:08 09/16/1909/17/2024 BASIC METAB OLIC PANEL (8) sodium 138 mmol/ L 134-14 4 normal Not Available [facility] ([facility]) [address] [place], [address], 09/17/2024 12:08:08 09/16/1909/17/2024 BASIC METAB OLIC PANEL (8) potassium COMMEN T mmol/ L Test not perfo rmed. Serum was in conta ct with cells when recei asha which will make the resul t inacc urate . Not Available [facility] ([facility]) [address] [place], [address], 09/17/2024 12:08:08 09/16/19 25 09/17/2024 BASIC METAB OLIC PANEL (8) chloride 92 mmol/ L 96-106 below low normal Not Available [facility] ([facility]) [address] [facility], [place], [address], 09/17/2024 12:08:08 09/16/19 25 09/17/2024 BASIC METAB OLIC PANEL (8) carbon dioxide, total 21 mmol/ L 20-29 normal Not Available [facility] ([facility]) [address] [place], [address], 09/17/2024 12:08:08 09/16/19 25 09/17/2024 BASIC METAB OLIC PANEL (8) calcium 9.4 mg/dL 8.7-10 .2 normal Not Available [facility] ([facility]) [address] [facility], [place], [address], 09/17/2024 12:08:08 09/24/19 25 09/18/2024 XR, hip + pelvi s, bilat eral No observ ation record ed. [facility] (Med Record) [address], [place], [address], 09/24/2024 17:34:35 10/08/19 25 09/30/2024 elect alycia milligan am, routdivya ne ECG, 12 leads min; inter preta tion and repor t (PROC ) No observ ation record ed. [email or web address] [facility] [address] , [place], [address], 10/15/2024 11:45:27 Result Notes None recorded. Problems Name Problem SNOMED Code Status Onset Date Resolution Date Notes Provider Name and Address Organization Details Recorded Time Depressive disorder 63813709 Active [address] [place] [address], [place], [address] , [facility] [employer] 10:29:07 Osteoarthri tis 292229964 Active 2023 ROSIE Mena [address] [place] [address], [address], [employer] 10:29:00 Gout 65999406 Active 2023 Janice ROSIE Fitzpatrick [address] [place] [address], [address], [employer] 10:29:01 Acute kidney injury 13638459 Active 2023 ROSIE Mena [address] [place] [address], [address], [employer] 10:29:05 Serum creatinine above reference range 097006800 Active 2023 ROSIE Mena [address] [place] [address], [address], [employer] 10:28:58 Congestive heart failure 33613789 Active 2023 ROSIE Mena [address] [place] [address], [address], [employer] 10:28:50 Essential hypertensio n 86217028 Active 2023 ROSIE Mena [address] [place] [address], [address], [employer] 10:29:09 Acute bronchitis 13741620 Completed 202309/16/2024 ROSIE Mena [address] [place] [address], [address], [employer] 10:28:53 Chronic kidney disease 404467642 Active 2024 ROSIE Mena [address] [place] [address], [address], [employer] 17:12:34 Heart murmur 84903761 Active 2024 ROSIE Mena [address] [place] [address], [address], [employer] 5 08:41:01 Low blood pressure 48296605 Active 2024 ROSIE Mena [address] [place] [address], [place], [address], [employer] 5 09:03:13 Problem Notes None recorded. Procedures Surgical History Date Name Laterality Status Provider Name and Address Organization Details Recorded Time 12/17/19 Date of Last Pap Smear completed [employer] 09/16/2024 10:31:23 Joint Replacement completed [employer] 06/14/2024 10:17:21 Tonsillectomy completed [employer] 06/14/2024 10:17:21 Cardiac Surgery completed [employer]. 06/14/2024 10:17:21 Gallbladder Surgery completed [employer]. 06/14/2024 10:17:21 Imaging Results None recorded. Procedure Notes None recorded. Medical Equipment None Reported. Allergies Allergen ID Allergen Name Allergen Category Reaction Reaction Severity Criticality Documentation Date Start Date Code Code System Note Provider Name and Address Organization Details Recorded Time 58727 Substance with sulfonami de structure and antibacte rial mechanism of action (substanc e) medicatio n itching nausea rash Not available Not available Not available Not available 06/14/2024 21210 8003 SNOMED [employer] 10:17:19 Medications Name Sig Start Date Stop Date Status Note LastModified by Organization Details LastModified Time fluoxetine 40 mg capsule TAKE 2 CAPSULES BY MOUTH ONCE A DAY GENERIC FOR PROZAC active Not Available Not Available No t Available atorvastati n 20 mg tablet TAKE ONE TABLET BY MOUTH EVERY DAY active Not Available Not Available No t Available atorvastati n 10 mg tablet 06/14 completed Not Available Not Available Not Available azithromyci n 250 mg tablet TAKE 2 TABLETS (500 MG) BY ORAL ROUTE ONCE DAILY FOR 1 DAY THEN 1 TABLET (250 MG) BY ORAL ROUTE ONCE DAILY FOR 4 DAYS 09/16 completed Not Available Not Available Not Available medroxyprog esterone 2.5 mg tablet TAKE ONE TABLET BY MOUTH ONCE A DAY active Not Available Not Available No t Available prednisone 20 mg tablet Take 1 tablet twice a day by oral route as directed for 5 days. 09/16 completed Not Available Not Available Not Available spironolact one 100 mg tablet TAKE ONE TABLET BY MOUTH ONCE A DAY active Not Available Not Available No t Available allopurinol 100 mg tablet TAKE 1 TABLET BY MOUTH ONCE A DAY FOR GOUT active Not Available Not Available No t Available sulfamethox azole 800 mg-trimetho prim 160 mg tablet 06/14 completed Not Available Not Available Not Available omeprazole 40 mg capsule,del ayed release TAKE 1 CAPSULE BY MOUTH ONCE A DAY active Not Available Not Available No t Available cefadroxil 500 mg capsule 06/14 completed Not Available Not Available Not Available potassium chloride ER 20 mEq tablet,exte nded release(par t/cryst) TAKE ONE TABLET BY MOUTH 2 TIMES A DAY active Not Available Not Available No t Available torsemide 100 mg tablet TAKE ONE TABLET BY MOUTH ONCE A DAY active Not Available Not Available No t Available benzonatate 100 mg capsule 06/14 completed Not Available Not Available Not Available losartan 25 mg tablet Take 1 tablet every day by oral route as directed for 90 days, for high blood pressure. 09/23 completed Not Available Not Available Not Available estradiol 2 mg tablet 06/14 completed Not Available Not Available Not Available bumetanide 1 mg tablet TAKE ONE TABLET BY MOUTH 2 TIMES A DAY active Not Available Not Available No t Available levothyroxi ne 200 mcg tablet TAKE ONE TABLET BY MOUTH ONCE A DAY active Not Available Not Available No t Available gabapentin 100 mg capsule 06/14 completed Not Available Not Available Not Available ergocalcife rol (vitamin D2) 1,250 mcg (50,000 unit) capsule TAKE ONE CAPSULE BY MOUTH EVERY WEEK active Not Available Not Available No t Available albuterol sulfate HFA 90 mcg/actuati on aerosol inhaler Inhale 2 puffs every 4 hours by inhalatio n route as needed for 30 days, for wheezing/ shortness of breath. active Not Available Not Available No t Available doxycycline hyclate 100 mg tablet 06/14 completed Not Available Not Available Not Available hydroxyzine pamoate 25 mg capsule TAKE 1 CAPSULE BY MOUTH AT BEDTIME active Not Available Not Available No t Available buprenorphi ne 8 mg-naloxone 2 mg sublingual tablet dissolve 2 tablets under the tongue once a day active Not Available Not Available No t Available cholecalcif [place] (vitamin D3) 25 mcg (1,000 unit) tablet 08/12 completed Not Available Not Available Not Available ferrous sulfate 324 mg (65 mg iron) tablet,lizet yed release 06/14 completed Not Available Not Available Not Available oxycodone 10 mg tablet 06/14 completed Not Available Not Available Not Available diclofenac 1 % topical gel APPLY 2 GRAMS TO THE AFFECTED AREA(S) BY TOPICAL ROUTE 4 TIMES PER DAY 08/12 completed Not Available Not Available Not Available Farxiga 10 mg tablet TAKE ONE TABLET BY MOUTH ONCE A DAY active Not Available Not Available No t Available potassium chloride ER 20 mEq tablet,exte nded release Take 1 tablet twice a day by oral route for 90 days. 2024 active Not Available Not Available Not Avai lable Entresto 24 mg-26 mg tablet TAKE ONE TABLET BY MOUTH 2 TIMES A DAY FOR HEART FAILURE active Not Available Not Available No t Available naloxone 4 mg/actuatio n nasal spray active Not Available Not Available Not Available Kerendia 20 mg tablet Take 1 tablet every day by oral route for 90 days, for kidneys. 09/19 completed Not Available Not Available Not Available Vitals Date Recorded Body height Body mass index (BMI) Body weight Oxygen saturation Oxygen saturation in Arterial blood by Pulse oximetry Heart rate Body temperature Systolic blood pressure Diastolic blood pressure Provider Name and Address Organization Details Last Updated DateTime 5 162.56 cm 46.5 kg/m2 295840. 53 g 96 % 96 % 82 /min 98.1 [degF] 100 mm[Hg] 66 mm[Hg] [facility] [employer] [facility]. 5 10:20:28 Date Recorded Body height Body mass index (BMI) Body weight Heart rate Oxygen saturation Oxygen saturation in Arterial blood by Pulse oximetry Systolic blood pressure Diastolic blood pressure Systolic blood pressure Diastolic blood pressure Provider Name and Address Organization Details Last Updated DateTime 5 162.56 cm 48.9 kg/m2 326307. 83 g 84 /min 99 % 99 % 85 mm[Hg] 53 mm[Hg] 88 mm[Hg] 50 mm[Hg] Mirtha Payne [employer]. 5 08:25:15 Date Recorded Body weight Body mass index (BMI) Body height Oxygen saturation Oxygen saturation in Arterial blood by Pulse oximetry Heart rate Systolic blood pressure Diastolic blood pressure Provider Name and Address Organization Details Last Updated DateTime 099010. 64 g 48.6 kg/m2 162.56 cm 95 % 95 % 72 /min 136 mm[Hg] 79 mm[Hg] [employer]. 4 10:16:13 Date Recorded Body height Body mass index (BMI) Body weight Heart rate Oxygen saturation Oxygen saturation in Arterial blood by Pulse oximetry Systolic blood pressure Diastolic blood pressure Provider Name and Address Organization Details Last Updated DateTime 162.56 cm 47.7 kg/m2 476187. 68 g 96 /min 95 % 95 % 117 mm[Hg] 69 mm[Hg] Cherie [employer] 4 15:01:18 Social History Question Answer Notes LastModified by Bilibot ion Details LastModified Time Tobacco Smoking Status Never Smoker [employer]. 06/14/2024 10:17:20 Do You Have An Advance Directive? No Information not available 06/14/2024 Is Your Home Air Conditioned? Yes Information not available 06/14/2024 If You Are , What Was Your Level Of Alcohol Consumption Prior To ? None Information not available 06/14/2024 How Many Years Have You Consumed Alcohol? 25 Information not available 06/14/2024 Do You Wear A Helmet When Biking? No Information not available 06/14/2024 Are You Blind Or Do You Have Difficulty Seeing? No Information not available 06/14/2024 What Is Your Level Of Caffeine Consumption? Heavy Information not available 06/14/2024 What Type Of Bead Cutter Do You Use? None Information not available 06/14/2024 Have You Been To An Area Known To Be High Risk For COVID-19? No Information not available 06/14/2024 Are You Deaf Or Do You Have Serious Difficulty Hearing? No Information not available 06/14/2024 What Type Of Diet Are You Following? REGULAR Information not available 06/14/2024 What Is The Highest Grade Or Level Of School You Have Completed Or The Highest Degree You Have Received? [id number] Information not available 06/14/2024 Have There Been Any Changes To Your Family Or Social Situation? No Information no t available 06/14/2024 Are There Any Guns Present In Your Home? No Information not available 06/14/2024 Which Of Your Hands Is Dominant? Right Information not available 06/14/2024 What Is Your Home Situation? Other Information not available 06/14/2024 Do You Have A Medical Power Of News Reporter? No Information not available 06/14/2024 What Was The Date Of Your Most Recent Tobacco Screening? 10/08/2024 Information not available 10/08/2024 Do You Have Any Pets? Yes Information not available 06/14/2024 What Is Your Relationship Status? Information not available 06/14/2024 Have You Repeated Any Grades? Yes Information not available 06/14/2024 Do You Use Your Seat Belt Or Car Seat Routinely? Yes Information not available 06/14/2024 Are You Sexually Active? No Information not available 06/14/2024 Do You Have Any Siblings? Yes Information not available 06/14/2024 Do You Have Smoke And Carbon Monoxide Detectors In Your Home? No Information not available 06/14/2024 Are You Passively Exposed To Smoke? No Information no t available 06/14/2024 Are There Any Smokers In Your House? No Information not available 06/14/2024 Do You Participate In Social Media? Yes Information not available 08/12/2024 Do You Use Sunscreen Routinely? No Information not available 06/14/2024 Has Tobacco Cessation Counseling Been Provided? No Information not available 06/14/2024 Have You Recently Traveled Abroad? No Information not available 06/14/2024 Do You Have Difficulty Walking Or Climbing Stairs? Yes Information not available 06/14/2024 Are You Currently In School? No Information not available 06/14/2024 Do You Have Any Dietary Restrictions? No Information not available 06/14/2024 How Many Days In The Past Year Have You Consumed 4 Or More Drinks? 2 Information no t available 06/14/2024 Sex: Female Functional Status Question Answer Note LastModified by Organizat ion Details LastModified Time Do you use any illicit or recreational drugs? No Information not available 06/14/2024 Do you or have you ever used any other forms of tobacco or nicotine? No Information not available 06/14/2024 What is your level of alcohol consumption? Occasional Information not available 06/14/2024 Are you currently employed? No Information not available 06/14/2024 Do you have transportation difficulties? No Information not available 06/14/2024 Are you able to walk? YESWOREST Information not available 06/14/2024 Do you have difficulty doing errands alone? Yes Information not available 06/14/2024 Are you able to care for yourself? Yes Information n ot available 06/14/2024 Do you have difficulty dressing or bathing? Yes Information not available 06/14/2024 What is your exercise level? None Information not available 06/14/2024 Mental Status Question Answer Note LastModified by Organizat ion Details LastModified Time Do you feel stressed (tense, restless, nervous, or anxious, or unable to sleep at night)? PM81600-1 Information not available 08/12/2024 Do you have difficulty concentrating, remembering or making decisions? Yes Information no t available 06/14/2024 Are you or have you been involved with bullying? No Information not available 06/14/2024 Family History Relationship Description Onset Age of this Age Resolved Age Notes LastModified by Organization Details LastModified Time Mother Hypercholestony mayers Not available 2023 10:17:19 Mother Harmful pattern of use of alcohol Not available 2023 10:17:19 Mother Asthma Not available 10:17:19 Mother Anxiety disorder Not available 2023 10:17:19 Mother Malignant tumor of breast Not available 2023 10:17:19 Mother Malignant neoplasm of ovary Not available 2023 10:17:19 Mother Arthritis Not available 06/14/2024 10:17:19 Mother Hypertensive disorder Not available 2023 10:17:19 Mother Heart disease Not available 2023 10:17:19 Mother Osteoporosis Not availab le 06/14/2024 10:17:19 Brother Harmful pattern of use of alcohol Not available 2023 10:17:19 Brother Asthma Not available 10:17:19 Brother Liver problem Not available 2023 10:17:19 Brother Hypertensive disorder Not available 2023 10:17:19 Brother Heart disease Not available 2023 10:17:19 Sister Anxiety disorder Not available 2023 10:17:19 Sister Malignant tumor of cervix Not available 2023 10:17:19 Sister Malignant neoplasm of ovary Not available 2023 10:17:19 Sister Arthritis Not available 06/14/2024 10:17:19 Sister Heart disease Not available 2023 10:17:19 Father Harmful pattern of use of alcohol Not available 2023 10:17:19 Father Arthritis Not available 06/14/2024 10:17:19 Father Hypertensive disorder Not available 2023 10:17:19 Father Heart disease Not available 2023 10:17:19 Medical History Condition Response Coronary Artery Disease Y Other N Gout Y Kidney Stones N Blood Diseases N Hyperthyroidism N Breast Cancer N Blood Transfusion N Emergency room visit since last appointm ent. N Hypothyroidism N Lung Disease N COPD N Dermatologic Disorders N Depression Y Defects or Inherited Disease N Developmental or Behavioral Disorders N Breast Problem N Difficulty Swallowing N Anesthesia Complications N History of STI N Meniere's disease N Anxiety Disorder Y Muscle, Joint, or Bone Problems N Autoimmune disease N Obesity Y Vision or Eye Problems N Arthritis Y Polyps N Infertility N Mental Disorder N Congenital Anomalies N Acid Reflux (GERD) N Cancer N Stroke N Neurologic/Epilepsy N Endometriosis N Bladder or Kidney Problems Y High Cholesterol Y Liver Disease N Psychiatric/Mental Health Condition N Organ Transplant N Headaches N Schizophrenia N Fibromyalgia N Dialysis N Kidney Disease N Allergies/Hayfever N Heart Problems N Ear or Hearing Problems N Hospitalizations N Learning Disorder N Artificial Joints N Thyroid Problems Y GI Problems N Acne N ADD/ADHD Y Eating Disorder N Anemia N Constipation N Mental Illness N Ovarian Cancer N Diabetes N Bedwetting N Hepatitis/Liver Disease N Tuberculosis N Congestive Heart Failure (CHF) Y Eczema N Diverticulitis N Abuse/Domestic Violence N Asthma Y Trauma/Violence N Reflux/GERD N Depression/ depression N Hepatitis N Heart Disease Y Pulmonary Embolism N Tourette Syndrome N Pre-Eclampsia N Hypertension Y Chronic Ear Infections N Osteoporosis Y Chicken Pox N Autism Spectrum Disorder (ASD) N Thrombophilias N Gynecological History Statement/Question Response If Post Menopausal, Age at Menopause 46 Abnormal Pap N Sexually Active? N Menses Monthly N HPV Vaccine N Date of Last Pap Smear 12/16/2021 Current Control Method Abstinence Most Recent Mammogram Age at First Child 16 Obstetrics History GPAL:G 3 P 3 0 0 3 Type Value Multiple Births 0 Full Term 3 Induced 0 Spontaneous 0 Premature 0 Living 3 Ectopics 0 Total 3 Immunizations Vaccine Type Date Status Note Provider Nam e and Address Organization Details Recorded Time COVID-19, mRNA, LNP-S, PF, 30 mcg/0.3 mL dose 09/08/2021 completed Cherie [employer] null, [employer] 08/12/2024 14:57:31 COVID-19, mRNA, LNP-S, PF, 30 mcg/0.3 mL dose 08/11/2021 completed Cherie Vice null, [employer] 08/12/2024 14:57:31 COVID-19, mRNA, LNP-S, PF, 30 mcg/0.3 mL dose, jayce-sucrose 03/28/2022 completed Cherie Vice null, [employer] 08/12/2024 14:57:31 tetanus toxoid, adsorbed 11/09/2009 completed Cherie Vice null, [employer] 08/12/2024 14:57:31 Hep A-Hep B 01/25/2024 completed Cherie Vice null, [employer] 08/12/2024 14:57:31 Hep A-Hep B 04/24/2024 completed Cherie Vice null, [employer] 08/12/2024 14:57:31 Past Encounters Encounter ID Performer Location Encounter Start Date Encounter Closed Date Diagnosis/Indication Diagnosis SNOMED-CT Code Diagnosis ICD10 Code Diagnosis Note [id number] ROSIE Mena [address] [address] 06/14/2024 09:39:19 06/14/2024 11:31:46 Screening mammography 65794654 Z12.31 Osteoarthritis 848534279 M19.90 Gout 60045907 M10.9 Acute kidney injury 1466 9001 N17.9 repeat BMP Monday Serum crea tinine above reference range 534054078 R79.89 Congestive heart failure 30810164 I50.9 torsemide sparingly due to kidney injury but patient is retaining fluid, dsypneic so is likely going to have to resume it [id number] ROSIE Mena [address] [address] 08/12/2024 14:35:51 08/12/2024 15:29:15 Cough 26579689 R05.9 Acute bronchitis 0170547 2 J20.9 Congestive heart failure 24727041 I50.9 [id number] ROSIE Mena [address] [address] 09/16/2024 10:01:55 09/16/2024 10:53:38 Screening colonoscopy 150611271 Z12.11 Low back pain 920957449 M54.50 Serum crea tinine above reference range 156087378 R79.89 Congestive heart failure 91936906 I50.9 [id number] ROSIE Mena [address] [address] 10/08/2024 08:11:46 10/08/2024 09:17:28 Heart murmur 96880909 R01.1 Low blood pressure 69534 003 I95.9 We could not get EKG to connect here in the office this am, so patient was sent to [facility] for EKG, CBC, BMPLab called with critical potassium of 2.9Called patient and advised her to go to ER for replacemen t and tele monitoring Health Concerns Section Related Observation LastModified by Organization Detai ls LastModified Time None Recorded Concern Status LastModified by Organization Details LastModified Time None Recorded Advance Directives Directive N: Payers Insurance Date Sequence Insurance Name Policy Number Policy Jonas Covered Member ID Jonas Member ID Guarantor Name 02/10/2025 1 [facility] (MEDICAID H[facility]) Lesia Mccollum Espinoza [id number] Lesia Doran Notes Date Note Type Note Provider Name and Address Organization Details Recorded Time 06/14/2024 text/html Patient presents to establish care at [facility], former patient of [employer].Patient states that she has been in and out of the hospital a few times over the past few months. Had pain, swelling, unable to move left arm. Had been treated for cellulitis approximately one month prior. This time, she was diagnosed with gout. Kidney function was elevated while at [facility] - creatinine was 5 initially and then came down to 1.9 and eGFR was 27.She is tired and short of breath with exertion. She has gained weight. They held her fluid pill while at [facility] to recheck her kidney function before resuming, but she has not heard from them yet. ROSIE Mena [address] [place], [address], [place] [employer] 06/14/2024 14:06:21 08/12/2024 text/html Patient has had sinus pain, pressure, headache, sore throat, cough and congestion X 3-4 weeks.Patient also has CHF. CUrrently taking Entresto, torsemide and spironolactone but still has swelling.Dyspneic with exertion. Has coughing fits where she can't catch her breath.Was hospitalized a few months ago with ARF, and diuretics were held at that time, but states she has been taking them daily. ROSIE Mena [address] [place], [address], [employer] 08/12/2024 16:22:23 09/16/2024 text/html Patient states t hat she fell on the ice 3 different times on 09/11. She struck her low back. Has pain in her low back and both hips. 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 SHe feels like her left hip is higher than her right. ROSIE Mena [address] [place], [address], [employer] 09/16/2024 15:46:04 10/08/2024 text/html Patient presents for followup.Blood pressure is low today. States that it has been running low. States she has been having intermittent chest pain. Denies headache, dizziness or syncope. Has had swelling. History of CHF as well as CKD, which has made her treatment complicated. Has an appt with cardiology next week for cardiology clearance before her colonoscopy. ROSIE Mena [address] [place], [address], [employer] 10/08/2024 11:36:02 OBGyn Episode No OBEpisode recorded.
--- OUTSIDE RECORDS SUMMARY | 2025-02-10 16:23 | XMS_ITS | Encounter Summary ---
Author Organization [facility] Address [address] [place] [address] Care Team Providers Care Tobacco Sieve Operator Name Role Phone Janice Fitzpatrick Primary Care Provider [phone] Encounter Details Date Type Department Care Team (Latest Contact Info) Description 12/13/2024 Travel Social History Tobacco Use Types Packs/Day Years Used Date Smoking Tobacco: Never Passive Smoke Exposure: Never Smokeless Tobacco: Never Alcohol Use Standard Drinks/Week Comments No 0 (1 standard drink = 0.6 oz pur e alcohol) Humiliation, Afraid, Rape, and Kick questionnair e Answer Date Recorded Within the last year, have y ou been afraid of your partner or ex-partner? No 01/17/2024 Within the last year, have y ou been humiliated or emotionally abused in other ways by your partner or ex-partner? No Within the last year, have y ou been kicked, hit, slapped, or otherwise physically hurt by your partner or ex-partner? No 01/17/2024 Within the last year, have y ou been raped or forced to have any kind of sexual activity by your partner or ex-partner? No 01/17/2024 PHQ-2 Answer Date Recorded Patient Health Questionnaire-2 Score 0 03/28/2022 Hunger Vital Sign Answer Date Recorded Within the past 12 months, y ou worried that your food would run out before you got the money to buy more. Never true 01/17/20 24 Within the past 12 months, t he food you bought just didn't last and you didn't have money to get more. Never true 01/17/2024 PRAPARE - Transportation Answer Date Re corded In the past 12 months, has l ack of transportation kept you from medical appointments or from getting medications? No 12/20 In the past 12 months, has l ack of transportation kept you from meetings, work, or from getting things needed for daily living? No 01/17/2024 Housing Stability Vital Sign Answer Deshawn e Recorded In the last 12 months, was t here a time when you were not able to pay the mortgage or rent on time? No 01/17/2024 [address] of Places Lived in the Last Year Not on f ile 01/17/2024 In the last 12 months, was t here a time when you did not have a steady place to sleep or slept in a half-way (including now)? No 01/17/2024 CAGE ASSESSMENT Answer Date Recorded Cage unable to access Not on file 01/17/2024 Cage max number of drinks Not on file 2023 Cage Beverages a week Not on file 01/17/2024 Have you ever felt you should CUT down on your d rinking? 0 01/17/2024 Have you been ANNOYED by people criticizing your drinking? 0 01/17/2024 Have you felt GUILTY about your drinking? 0 01/17/2024 Have you had a drink first t nelli in the morning (EYE-CURING PICKLING PACKER) to steady your nerves or to get rid of a hangover? 0 01/17/2024 CAGE Questionnaire Score 0 024 Utilities Answer Date Recorded In the past 12 months has th e electric, gas, oil, or water company threatened to shut off services in your home? No 01/17/2024 Comments No Sex and Gender Information Value Date Recorded Sex Assigned at Female 04/21/2024 2:15 PM EDT Legal Sex Female 7:37 PM EDT Gender Identity Not on file Sexual Orientation Not on file documented as of this encounter Plan of Treatment Upcoming Encounters Date Type Department Care Team (Late st Contact Info) Description 02/28/2025 9:40 AM EDT Office Visit [facility] [address] [place] [address] Sadia Daniel, PAINTER MAINTENANCE [address] [address] documented as of this encounter Visit Diagnoses Not on filedocumented in this encounter Additional Health Concerns Assessment Noted Time A Body Mass Index follow-up plan has been documented for the patient 04/28/2024 4:17 PM EDT documented as of this encounter Care Teams Tobacco Sieve Operator Relationship Specialty Start Date End Date Janice Fitzpatrick PA [address] [place] [address] PCP - General 12/20/21 documented as of this encounter
--- OUTSIDE RECORDS SUMMARY | 2025-02-10 16:23 | XMS_ITS | Encounter Summary ---
Author Organization [facility] Address [address] [place] [address] Care Team Providers Care Electrician Ship Name Role Phone Janice Fitzpatrick Primary Care Provider [phone] Encounter Details Date Type Department Care Team (Late Contact Info) Description 12/31/2021 [facility] [address] [place] [address] Janice Fitzpatrick PA [address] [place] [address] Aneurysm of splenic artery (CMS/HCC) (Primary Dx) Social History Tobacco Use [...] on file Sexual Orientation Not on file COVID-19 Exposure Response Date Recorded In the last 10 days, have yo u been in contact with someone who was confirmed or suspected to have Coronavirus/COVID-19? No / Unsure 12/20/2021 10:31 AM EDT documented as of this encounter Plan of Treatment Upcoming Encounters Date Type Department Care Team (Late Contact Info) Description 02/28/2025 9:40 AM EDT Office Visit [facility] [address] [place] [address] Sadia Daniel, RECREATION COUNSELOR [address] [address] documented as of this encounter Visit Diagnoses Diagnosis Aneurysm of splenic artery (CMS/HCC)- Primary Aneurysm of splenic artery documented in this encounter Additional Health Concerns Infection Onset Date Last Indicated Resolved Time Respiratory Rule-Out 04/25/2024 04/25/2024 024 2:39 PM EDT documented as of this encounter Care Teams Electrician Ship Relationship Specialty Start Date End Date Janice Fitzpatrick PA [address] [place] [address] PCP - General 12/20/21 documented as of this encounter
--- OUTSIDE RECORDS SUMMARY | 2025-02-10 16:23 | XMS_ITS | Clinical Summary ---
Author Organization [facility] Address [address] [place] [address] Care Team Providers Care Fruit And Vegetable Parer Name Role Phone Janice Fitzpatrick Primary Care Provider [phone] Allergies Active Allergy Reactions Criticality Noted Date Comments Amoxicillin Unknown - Patient st ates they do not know rxn details Low 12/17/2021 Patient states she is only allergic to Biaxin Clarithromycin Shortness of breath,Itching,Rash High 01/03/2014 [facility] Itching,Nausea,Rash Medium 12/10/2024 Medications * This document contains information received from the source organization and may not represent a complete record from that organization. FLUoxetine (PROzac) 40 MG capsule Take 2 capsules (80 mg) by mouth 1 (one) time each day. Active omeprazole (PriLOSEC) [address] capsule Take 1 capsule (40 mg) by mouth 1 (one) time each day in the morning. Do not crush or chew. Active medroxyPROGESTE Joao (Provera) 2.5 MG tablet Take 1 tablet (2.5 mg) by mouth 1 (one) time each day. 2 Active levothyroxine (Synthroid, Levoxyl) 200 MCG tablet Take 1 tablet (200 mcg) by mouth 1 (one) time each day before breakfast. 2 Active albuterol 108 (90 Base) MCG/ACT inhaler Inhale 2 puffs every 6 (six) hours if needed. 3 Active aspirin 81 MG EC tablet Take 1 tablet (81 mg) by mouth 1 (one) time each day in the morning. Active hydrOXYzine pamoate (Vistaril) 25 MG capsule Take 1 capsule (25 mg) by mouth every night. Active buprenorphine-n aloxone (Suboxone) 8-[address] 2 tablets under the tongue 1 (one) time each day. Active cholecalciferol (Vitamin D-3) 25 MCG (1000 UT) tablet Take 1 tablet (1,000 Units) by mouth 1 (one) time each day. 30 tablet 4 Active losartan (Cozaar) 25 MG tablet Take 1 tablet (25 mg) by mouth every night. Please start taking after repeating labs in 3 days and renal function has returned to baseline after talking to PCP. 4 Active atorvastatin (Lipitor) 40 MG tablet Take 1 tablet (40 mg) by mouth every night. 30 tablet 1 4 Active gabapentin (Neurontin) 100 MG capsule Take 1 capsule (100 mg) by mouth 3 (three) times a day for 15 days. 45 capsule 4 Active torsemide (Demadex) 100 MG tablet Take 1 tablet (100 mg) by mouth 1 (one) time each day in the morning. Please take half tab(50 mg) for 3 days and get labs and follow up with PCP regarding results and resumption of full dose- 100 mg. 4 Active spironolactone (Aldactone) 100 MG tablet Take 1 tablet (100 mg) by mouth 1 (one) time each day in the morning. Please take half tab(50 mg) for 3 days and get labs and follow up with PCP regarding results and resumption of full dose- 100 mg. 4 Active naloxone (Narcan) 4 mg/0.1 mL nasal spray 1. Give 1 spray in nostril for no/slow breathing or cannot wake after opioid use 2. Call 911 3. Repeat in other nostril if symptoms continue Call 911. Give 4 mg (1 spray) into one nostril. Repeat every 2-3 minutes as needed, alternating nostrils, until medical assistance arrives. 1 each 11 4 01/26/20 25 Active Problems Problem Noted Date Diagnosed Date Class III obesity with body mass index (BMI) of 40.0 or higher 04/26/2024 Cellulitis 04/21/2024 Cellulitis of left hand 01/17/2024 Endometrial hyperplasia 01/16/2024 Severe obesity (BMI 35.0-39.9) with comorbidity 03/28/2022 Hyperlipidemia 03/28/2022 HTN (hypertension) 03/28/2022 Hypothyroidism 03/28/2022 CAD S/P percutaneous coronary angioplasty 2021 Myocardial infarction greater than 8 weeks ago 0 03/28/2022 H/O opioid abuse 03/28/2022 CHF (congestive heart failure) 03/28/2022 Encounters Date Type Department Care Team Description 12/13/2024 Travel from Last 3 Months Immunizations Immunization Administration Dates Next Due Hep A / Hep B 04/24/2024,01/25/2024 Tetanus Toxoid, Unspecified 11/09/2009 Tetanus toxoid, adsorbed 11/09/2009 Family History Medical History Relation Name Comments Cardiac disorder Brother 1 Heart attack Brother 2 Conversions - Other Father cerebral infarction Heart attack Sister Relation Name Status Comments Brother 1 Brother 2 Father Sister Social History Tobacco Use Types Packs/Day Years Used Date Smoking Tobacco: Never Passive Smoke Exposure: Never Smokeless Tobacco: Never Tobacco Cessation:Counseling Given: No Alcohol Use Standard Drinks/Week Comments No 0 [...] the money to buy more. Never true 05/29/20 24 Within the past 12 months, t [...] place to sleep or slept in a skilled nursing (including now)? No 01/17/2024 CAGE ASSESSMENT Answer [...] drink first t nelli in the morning (EYE-STRAIGHT LINE PRESS SETTER) to steady your nerves or to get [...] on file Sexual Orientation Not on file Last Filed Vital Signs Vital Sign Reading Time Taken Comments Blood Pressure 110/74 05/07/2024 12:09 PM EDT Pulse 78 05/07/2024 12:09 PM EDT Temperature 36.8 C (98.2 F) 05/07/2024 12:09 PM EDT Respiratory Rate 18 05/07/2024 12:09 PM EDT Oxygen Saturation 92% 05/07/2024 12:09 PM EDT Inhaled Oxygen Concentration - - Weight 127 kg (280 lb) 05/06/2024 6:17 PM EDT Height 165.1 cm (5' 5 ) 05/06/2024 6:17 PM EDT Body Mass Index 46.59 05/06/2024 6:17 PM EDT Plan of Treatment Upcoming Encounters Date Type Department Care Team (Late st Contact Info) Description 02/28/2025 9:40 AM EDT Office Visit [facility] [address] [place] [address] Sadia Daniel, CINEMA OR THEATRE MANAGER [address] [address] Health Maintenance Due Date Last Done Comments [facility]-/Child/Adol SDOH Screenings 1968 [facility]- SDOH Screenings 1986 [facility]-Adult SDOH Screenings 1986 [facility]-DTaP,Tdap,and Td Vaccines (1 - Tdap) 11/19/1987 [facility]-Pneumococcal Vaccine: 50+ Years (1 of 2 - PCV) 11/19/1987 [facility]-Pap Smear 1989 [facility]-Cervical Cancer Screening 1998 [facility]-HPV/Cotest 1998 CT Colonography 2013 Colonoscopy 2013 FIT-DNA 2013 FIT 2013 FOBT 2013 Sigmoidoscopy 2013 [facility]-Colorectal Cancer Screening 2013 [facility]-Breast Cancer Screening 2018 [facility]-Zoster Vaccines (1 of 2) 2018 [facility]-Depression Screening 03/28/2023 03/28/2022 DOD-SCGLO-10 Vaccine (4 - season) 2024 03/28/2022, 09/08/2021, 08/11/2021 [facility]-Hepatitis B Vaccines (3 of 3 - Hep B Twinrix 3-dose series) 09/24/2024 04/24/2024, 01/25/2024 [facility]-Influenza Vaccine (Season Ended) 2025 [facility]-Diabetes: Hemoglobin A1C Discontinued 01/17/2024, 03/30/2015 [facility]-HIV Screening Completed 01/23/2024, 03/31/2015 [facility]-Hepatitis C Screening Completed 01/23/2024, 05/2015 [facility]-Obesity Intervention Completed 024, 01/29/2024, 01/16/2024, Additional history exists [facility]-Hepatitis A Vaccines Aged Out 04/24/2024, 01/2024 No longer eligible based on patient's age to complete this topic HPV Vaccines Aged Out No longer eligi ble based on patient's age to complete this topic [facility]-HIB Vaccines Aged Out No longer e ligible based on patient's age to complete this topic [facility]-IPV Vaccines Aged Out No longer e ligible based on patient's age to complete this topic [facility]-Rotavirus Vaccines Aged Out No lo nger eligible based on patient's age to complete this topic Procedures Procedure Name Priority Date/Time Associated Diagnosis Comments HEPATITIS C ANTIBODY W/REFLEX TO HCV QUANT PCR Routine 01/23/2024 10:51 AM EDT HIV 1/2 ANTIBODY/ANTIGEN SCREEN WITH REFLEX TO HIV I/II DIFFERENTIATION Routine 01/23/2024 10:51 AM EDT HEMOGLOBIN A1C Add-On 01/17/2024 4:06 AM EDT from Last 3 Months or Most Recently Relevant to Health Maintenance Results * HIV 1 & 2 Antibody/Antigen Screen (01/23/2024 10:51 AM EDT) HIV 1 & 2 Antibody/Antigen Screen Non Reactive Non Reactive 01/23/2024 11:29 AM EDT [facility] Comment:Screening for HIV 1 & 2 antibodies, and P24 antigen is NONREACTIVE. No confirmatory testing is required. Blood Venous blood specimen / Unknown Venipuncture / Unknown 01/23/2024 10:51 AM EDT 01/23/2024 10:57 AM EDT us Sary Dawson MD LAB BLOOD ORDERABLES Final R esult Performing Organization Address [facility] Co de Phone Number [facility] [address] [place] [address] * Hepatitis C Antibody (01/23/2024 10:51 AM EDT) Hepatitis C Antibody Negative Negative 01/23/2024 11:25 AM EDT [facility] Blood Venous blood specimen / Unknown Venipuncture / Unknown 01/23/2024 10:51 AM EDT 01/23/2024 10:57 AM EDT us Sary Dawson MD LAB BLOOD ORDERABLES Final R esult Performing Organization Address [facility] de Phone Number [facility] [address] [place] [address] * (ABNORMAL) Hemoglobin A1c (01/17/2024 4:06 AM EDT) Hemoglobin A1c 6.0(H) <5.7 % 01/17/2024 12:39 PM EDT [facility] Blood Venous blood specimen / Unknown Venipuncture / Unknown 01/17/2024 4:06 AM EDT 01/17/2024 4:15 AM EDT Narrative [facility] - 01/17/2024 12:39 PM EDT HA1C Interpretive Data: Diagnosis of Diabetes: Diabetic > or = 6.5% Pre-diabetic 5.7 to 6.4% Non-diabetic < or = 5.6% Glycemic Targets for Type I and Type II Diabetics: Non- Adults <7.0% Adults <6.0% Children and Adolescents <7.5% Source: [place] [employer]. Standards of medical care in diabetes,2017. Diabetes Care.2017:40 (suppl 1):S1-S135. HbA1c assay performed by an ion-exchange chromatography method that is certified traceable to the DCCT. us Marc Weinberg MD LAB BLOOD ORDERABLES Final Result Performing Organization Address [facility] de Phone Number [facility] [address] [place] [address] from Last 3 Months or Most Recently Relevant to Health Maintenance Insurance [employer] [facility] MEDICAID Advance Directives * Full Code (Latest Code Status on File) Date Activated Date Inactivated Comments 05/06/2024 8:30 PM 05/07/2024 4:08 PM Question Answer Comments Patient has decision-making capacity? Yes * Full Code Date Activated Date Inactivated Comments 04/21/2024 11:20 PM 04/28/2024 7:52 PM Question Answer Comments Patient has decision-making capacity? Yes * Full Code Date Activated Date Inactivated Comments 01/17/2024 1:52 AM 01/26/2024 8:49 PM Question Answer Comments Patient has decision-making capacity? Yes Care Teams Fruit And Vegetable Parer Relationship Specialty Start Date End Date Janice Fitzpatrick PA [address] [place] [address] PCP - General 12/20/21
--- OUTSIDE RECORDS SUMMARY | 2025-02-10 16:23 | XMS_ITS | Clinical Summary ---
Author Organization [facility] Address [address] [place] [address] Phone Care Team Providers Care Roller Mill Tender Name Role Phone Unavailable Primary Care Provider Unavailabl e Allergies Active Allergy Reactions Criticality Noted Date Comments Clarithromycin Rash Rash, sweating, throat closing up Medications ALPRAZolam (XANAX) 1 mgIndications:UT I (lower urinary tract infection),Kidne y stones,Flank pain Take 1 mg by mouth 3 times daily. Active Lisdexamfetamine 60 mg CapIndications:U TI (lower urinary tract infection),Kidne y stones,Flank pain Take 70 mg by mouth daily. Active FLUoxetine (PROZAC) 40 mg capsuleIndicatio ns:UTI (lower urinary tract infection),Kidne y stones,Flank pain Take 40 mg by mouth daily. Takes 80 mg Active ibuprofen (ADVIL;MOTRIN) 800 mg Take 1 Tab by mouth every 8 hours as needed for 21 doses. 21 Tab 0 06/23/2013 Active Active Problems Problem Noted Date Diagnosed Date HTN (hypertension) 08/10/2011 Anxiety Knee pain LBP (low back pain) Surgical History Surgery Date Site/Laterality Comments TONSILLECTOMY TONSILLECTOMY AND ADENOIDECTOMY LITHOTRIPSY Medical History Medical History Date Comments Heart attack (HCC) elevated trop onins, no ekg changes last admit Hypertension Migraines Bronchitis Chronic kidney disease kidney [facility] Family History Medical History Relation Name Comments Heart Disease Brother Heart Disease Father High Blood Pressure Father High Cholesterol Father Stroke Father Heart Disease Mother High Blood Pressure Mother High Cholesterol Mother Heart Disease Sister High Blood Pressure Sister High Cholesterol Sister Relation Name Status Comments Brother Father Mother Sister Social History Tobacco Use Types Packs/Day Years Used Date Smoking Tobacco: Never Smokeless Tobacco: Never Tobacco Cessation:Counseling Given: No Alcohol Use Standard Drinks/Week Comments Yes 0 (1 standard drink = 0.6 oz pure alcohol) once or twice a year on occassions will drink Comments No Sex and Gender Information Value Date Recorded Sex Assigned at Not on file Legal Sex Female 5:53 PM EDT Gender Identity Not on file Sexual Orientation Not on file Obstetrics History Last Filed Vital Signs Vital Sign Reading Time Taken Comments Blood Pressure 110/62 10/17/2013 4:27 PM EST Pulse 72 10/17/2013 4:27 PM EST Temperature 36.1 C (97 F) 10/17/2013 4:27 PM EST Respiratory Rate 18 10/17/2013 4:27 PM EST Oxygen Saturation 99% 10/06/2013 2:29 PM EST Inhaled Oxygen Concentration - - Weight 105.1 kg (231 lb 9.6 oz) 10/17/2013 4:27 PM EST Height 168.9 cm (5' 6.5 ) 10/17/2013 4:27 PM EST Body Mass Index 36.82 10/17/2013 4:27 PM EST Plan of Treatment Health Maintenance Due Date Last Done Comments Annual Wellness Exam 11/19/1971 DTaP/TDaP/Td (1 - Tdap) 11/19/1987 Hepatitis B Vaccine (1 of 3 - 19+ 3-dose series) 11/19/1987 Cologuard 2013 Colon Cancer Screening 2013 Colonoscopy 2013 FIT 2013 Sigmoidoscopy 2013 Virtual Colonography 2013 Pneumococcal Vaccine 50+ (1 of 1 - PCV) 2018 Zoster (1 of 2) 2018 COVID-19 Vaccine ( - 2023-2 5 season) 2024 Influenza Vaccine (Season Ended) 2025 Meningococcal B Vaccine Aged Out No l onger eligible based on patient's age to complete this topic
--- OUTSIDE RECORDS SUMMARY | 2025-02-10 16:23 | XMS_ITS | Encounter Summary ---
Author Organization Healthcare Address [address] [place] [address] Care Team Providers Care Chef [employer] Name Role Phone Marko Norton MD Primary Care Provider [phone] Janice Fitzpatrick Primary Care Provider [phone] Encounter Details Date Type Department Care Team (Late Contact Info) Description 12/17/2021 Orders Only External Location [address] [place] [address] Provider, External Social History Tobacco Use Types Packs/Day Years Used Date Smoking Tobacco: Never Alcohol Use Standard Drinks/Week Comments [...] Description 02/28/2025 9:40 AM EDT Office Visit [facility] [address] [place] [id number] Sadia Daniel, BARREL BANDER [address] [id number] documented as of this encounter Procedures Procedure Name Priority Date/Time Associated Diagnosis Comments CT ABDOMEN PELVIS W IV CONTRAST 12/17/2021 10:50 AM EDT documented in this encounter Results * CT Abdomen Pelvis w IV Contrast (12/17/2021 10:50 AM EDT) Anatomical Region Laterality Modality Abdomen, Pelvis Computed Tomogra phy 12/17/2021 10:5 0 AM EDT us External Provider IMG CT PROCEDURES Final Result documented in this encounter Visit Diagnoses Not on filedocumented in this encounter Additional Health Concerns Infection Onset Date Last Indicated Resolved Time Respiratory Rule-Out 04/25/2024 04/25/2024 024 2:39 PM EDT documented as of this encounter Care Teams Chef De Partie Relationship Specialty Start Date End Date Marko Norton MD [address] [place] [address] PCP - General 01/01/21 12/19/21 Janice Fitzpatrick PA [address] [place] [address] PCP - General 12/20/21 documented as of this encounter
[2025-02-10 17:01] VITALS: BP 84/55; PULSE 82; RESP 20; TEMP 36.8; O2SAT 94; BMI 41.5
--- NOTE | 2025-02-10 17:14 | ECG_ITS ---
APPROVED REPORT Exam: Resting ECG HR:72 bpm ECG Measurements Heart Rate 72 AXES NE 201 P -64 QRSd 106 QRS -41 QT 408 T 60 QTc 433 Conclusion NSR No STEMI Electronically signed by : MARSHA CARNES, 02/10/2025 21:19:26
[2025-02-10] MEDS: LACTATED RINGERS 1000ML 1,000 ML 999 ML IV (17:22)
[2025-02-10 17:24] LABS: Basophils % 0.4 % (0.1-2.0); Eosinophils # 0.2 Kmm3 (0.0-0.4); Eosinophils % 4.3 % (0.1-12.0); Hematocrit 32.8 % (37.0-47.0); Hemoglobin 10.3 g/dL (12.2-16.2); Immature Granulocytes # 0.03 10^3uL; Immature Granulocytes % 0.6 %; Lymphocytes % 18.8 % (10-50); Mean Corpuscular HGB Conc 31.4 g/dL (31.8-35.4); Mean Corpuscular Volume 95.6 fl (81-99); Mean Platelet Volume 9.9 fl (7.4-10.4); Monocytes # 0.3 K/mm3 (0.1-1.0); Monocytes % 5.6 % (1.7-9.3); Neutrophils # 3.7 K/mm3 (1.8-7.8); Neutrophils % 70.3 % (37.0-80.0); Nucleated Red Blood Cells # 0 10^3/uL; Nucleated Red Blood Cells % 0 %; Platelet Count 249 K/mm3 (142-424); Red Blood Count 3.43 M/mm3 (4.20-5.40); Red Cell Distribution Width 14.5 % (11.5-17.5); Red Cell Distribution Width-SD 50.1 fL; White Blood Count 5.3 K/mm3 (4.8-10.8)
[2025-02-10 17:29] LABS: Alanine Aminotransferase 22 U/L (12-78); Albumin Level 4.6 g/dl (3.5-5.0); Albumin/Globulin Ratio 1.1 (1.1-1.8); Alkaline Phosphatase 93 U/L (38-126); Anion Gap 13.9 mEq/L (5-15); Aspartate Amino Transferase 37 U/L (14-36); Blood Urea Nitrogen 66 mg/dl (7-17); Calcium 10.5 mg/dl (8.4-10.2); Carbon Dioxide 25 mmol/L (22.0-30.0); Chloride 100 mmol/L (98-107); Creatinine Clearance Estimated 30 mL/min (50-200); Estimated Glomerular Filt Rate 27 ml/min (>60); GFR (African American) 33 ML/MIN (>60); Globulin 4.2 g/dL (1.3-3.2); Glucose 195 mg/dl (74-100); Magnesium 1.7 mg/dl (1.6-2.3); Potassium 4.9 mmoL/L (3.5-5.1); Sodium 134 mmol/L (136-145); Total Protein,Serum 8.8 g/dl (6.3-8.2)
[2025-02-10 17:30] VITALS: BP 91/56; PULSE 80; RESP 20; O2SAT 95
--- NOTE | 2025-02-10 17:31 | HMH.EDGENADL ---
Discharge Plan Disposition Patient Disposition: Home, Self-Care Condition: Good Prescriptions Prescriptions: New cefdinir 300 mg capsule 300 mg PO BID 10 Days Qty: 20 0RF ondansetron 4 mg tablet,disintegrating 4 mg PO Q8H PRN (Reason: nausea and vomiting) 4 Days Qty: 12 0RF No Action buprenorphine-naloxone 8-2 mg tablet, sublingual 2 tab SL DAILY atorvastatin [Lipitor] 20 mg tablet 20 mg PO DAILY Qty: 30 2RF spironolactone 100 mg tablet 100 mg PO DAILY Qty: 90 3RF fluoxetine 40 mg capsule 80 mg PO DAILY omeprazole 40 mg capsule,delayed release(DR/EC) 40 mg PO DAILY levothyroxine 200 mcg tablet 200 mcg PO DAILY ergocalciferol (vitamin D2) 1,250 mcg (50,000 unit) capsule 50,000 unit PO WEEKLY hydroxyzine pamoate 25 mg capsule 25 mg PO HSP PRN (Reason: Insomnia) allopurinol 100 mg Tablet 100 mg PO DAILY 30 Days Qty: 30 0RF medroxyprogesterone 2.5 mg tablet 2.5 mg PO DAILY dapagliflozin propanediol [Farxiga] 10 mg tablet 10 mg PO DAILY potassium chloride [Klor-Con M20] 20 mEq Tablet,Er Particles/Crystals 40 meq PO DAILY 30 Days Qty: 60 0RF bumetanide 1 mg Tablet 2 mg PO DAILY 30 Days Qty: 60 0RF Referrals Follow up/Referrals: Janice Fitzpatrick PA [Primary Care Provider, Medical] - See instructions Activity Restrictions/Add. Instructions Additional Instructions/Restrictions: You were evaluated in the emergency department today. You were diagnosed with a urinary tract infection. Your blood pressure removed after IV fluids. We are prescribing an antibiotic to treat the urinary tract infection. For your low blood pressure, I recommend holding your Bumex for the next 48 hours and call your primary care provider and project superintendent to seek guidance with regards to restarting this. Return to the emergency department for new or worsening symptoms. Clinical Impressions Clinical Impression: UTI (urinary tract infection), Low blood pressure Stand Alone Forms Stand Alone Forms: Work/School Release Instructions Patient Instructions: DI for Dehydration -- Adult, DI for Urinary Tract Infection (UTI), Dizziness, Nonvertigo Print Language Print Language: Honduran Discharge ED Provider: Anjali Coelho General Adult HPI General Chief complaint: Dizziness Stated complaint: Low BP, tired, out of breath Time Seen by Provider: 02/10/25 16:21 Mode of Arrival: Ambulatory Source of Information: Patient Description of Symptoms (Recalled from ER Triage Doc. by RN): pt is here for low bp and being dizzy and tired for 5 days History of Present Illness HPI narrative: This patient is a 54-year-old female with a history of CHF, CKD, carotid stenosis, obesity, hypertension hyperlipidemia, hypertensive heart disease, CAD, diabetes presented to the emergency department for evaluation with concern for low blood pressure at home, lightheadedness, and fatigue for 5 days. She notes that she has a blood pressure monitor and was advised to come to the emergency department for evaluation because her blood pressures had persistently been in the 70s and 80s for 5 days. She notes that she is been feeling very poorly with lightheadedness, fatigue, and overall general weakness. She states she has had no energy. She denies any chest pain, shortness of breath, abdominal pain, vomiting, changes bowel movements, or changes in appetite/oral intake. She does note some dysuria. No other concerns or complaints noted at this time. She denies any recent changes to medications Related Data Home Medications ?Medication ?Instructions ?Recorded ?Confirmed buprenorphine 8 mg-naloxone 2 mg 2 tab sublingual DAILY 03/17/22 02/03/25 sublingual tablet ergocalciferol (vitamin D2) 1,250 50,000 unit PO WEEKLY 06/10/24 02/03/25 mcg (50,000 unit) capsule fluoxetine 40 mg capsule 80 mg PO DAILY 06/10/24 02/03/25 hydroxyzine pamoate 25 mg capsule 25 mg PO HSP PRN Insomnia 06/10/24 02/03/25 levothyroxine 200 mcg tablet 200 mcg PO DAILY 06/10/24 02/03/25 omeprazole 40 mg capsule,delayed 40 mg PO DAILY 06/10/24 02/03/25 release dapagliflozin propanediol 10 mg 10 mg PO DAILY 10/08/24 02/03/25 tablet (Farxiga) medroxyprogesterone 2.5 mg tablet 2.5 mg PO DAILY 10/08/24 02/03/25 Previous Rx's ?Medication ?Instructions ?Recorded atorvastatin 20 mg tablet (Lipitor) 20 mg PO DAILY #30 tabs 04/23/24 allopurinol 100 mg tablet 100 mg PO DAILY 30 days #30 tabs 06/12/24 spironolactone 100 mg tablet 100 mg PO DAILY #90 tabs 08/20/24 bumetanide 1 mg tablet 2 mg (2 x 1 mg) PO DAILY 30 days 10/09/24 #60 tabs potassium chloride 20 mEq 40 meq (2 x 20 mEq) PO DAILY 30 10/09/24 tablet,extended days #60 tabs release(part/cryst) (Klor-Con M) cefdinir 300 mg capsule 300 mg PO BID 10 days #20 caps 02/10/25 ondansetron 4 mg disintegrating 4 mg PO Q8H PRN nausea and 02/10/25 tablet vomiting 4 days #12 tabs Allergies Allergy/AdvReac Type Severity Reaction Status Date / Time clarithromycin (From BIAXIN) Allergy Mild Verified 02/03/25 09:01 amoxicillin Allergy Verified 02/03/25 09:01 [facility] Disclaimer: The information contained in this section may have been updated after the patient was seen, as this information can be updated by other users. Medical History Acute on chronic HFrEF (heart failure with reduced ejection fraction) Symptomatic cholelithiasis GERD (gastroesophageal reflux disease) Asthma IBS (irritable bowel syndrome) Typical angina Depressed Anxiety Restless legs syndrome Insomnia Daytime somnolence Abnormal EKG Unstable angina Dizziness Atypical angina Claudication Chest pain Gastroesophageal reflux disease Preoperative clearance Diastolic dysfunction Vitamin D deficiency Hypothyroidism HLD (hyperlipidemia) HHD (hypertensive heart disease) CAD (coronary artery disease) Neck Pain Radiculopathy affecting upper extremity Surgical History History of laparoscopic cholecystectomy S/P tonsillectomy and adenoidectomy Stented coronary artery H/O lithotripsy History of hip replacement Stented coronary artery Family History Other Family history of COPD (chronic obstructive pulmonary disease) Family history of cancer Family history of myocardial infarction Social History Smoking Status: Current every day smoker second hand exposure: No alcohol intake: never substance use type: denies use current occupational status: employed and unemployed Travel in the last 8 weeks?: None household members: none housing: house 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 current occupational exposures/hazards: No caffeine: Yes Have you lived/traveled outside US in past 30 days?: No Contact w/someone who lives/traveled outside US past 30 days?: No Exposure to someone with infectious disease in past 14 days?: No Do you have a fever (greater than 100.4 F or 38 C)?: No Have you tested positive for COVID-19?: No Exposed to someone with COVID-19 in past 14 days?: No Do you have a sore throat?: No Do you have a cough?: No Do you have any weakness?: No Do you have any diarrhea?: No Are you experiencing any unusual bleeding?: No Do you have any muscle aches/pain?: No Do you have any abdominal pain?: No Are you experiencing loss of taste or smell?: No Other Medical History Have you received the Flu Vaccine for this season: No Have you received the Pneumonia Vaccine: No ROS Obtained: Yes All systems reviewed & no additional complaints except as documented Physical Exam General General appearance: alert, in no apparent distress and obese Head Head exam: atraumatic and normocephalic Eye Eye exam: Present normal appearance, PERRL and EOMI ENT ENT exam: Present normal exam, normal oropharynx, mucous membranes moist and normal external ear exam Neck Neck exam: Present normal inspection, full ROM and trachea midline; Absent tenderness Chest Chest inspection: Present normal inspection and symmetric chest wall rise; Absent tenderness Respiratory Respiratory exam: Present normal lung sounds bilaterally; Absent respiratory distress, wheezes, stridor or accessory muscle use Cardiovascular Cardiovascular exam: Present regular rate and normal rhythm Abdominal Exam Abdominal exam: Present soft; Absent distention, tenderness or guarding Extremities Exam Extremities exam: Present normal inspection, full ROM and normal capillary refill; Absent tenderness or edema Back Exam Back exam: Present normal inspection and full ROM; Absent tenderness Neurological Exam Neurological exam: Present alert, oriented X3, CN II-XII intact and normal gait; Absent motor sensory deficit Psychiatric Psychiatric exam: Present normal affect and normal mood Skin Skin exam: Present warm and dry Medical Decision Making Medical Records Medical records reviewed: Yes I reviewed the patient's medical records. Screening: Per USPSTF and CDC recommendations, given the prevalence of disease in our region, it is our hospital?s policy to screen for HIV and viral Hepatitis for all patients aged 18 and over and those with ongoing risk factors. Wolfgang Inquiry Pt receiving controlled substance: No Vital Signs: 02/10/25 17:01 02/10/25 17:30 02/10/25 17:32 Temperature 98.2 F Temperature Source Oral Pulse Rate 80 Pulse Rate [Left Radial] 82 Pulse Rate [Orthostatic Lying] 74 Pulse Rate [Orthostatic Sitting] 78 Pulse Rate [Orthostatic Standing] 85 Respiratory Rate 20 20 Blood Pressure 91/56 L Blood Pressure [Orthostatic Lying] 94/57 L Blood Pressure [Orthostatic Sitting] 100/51 L Blood Pressure [Orthostatic Standing] 97/56 L Blood Pressure [Right Arm] 84/55 L Blood Pressure Mean 70 Blood Pressure Mean [Right Arm] 64 02 Sat by Pulse Oximetry 94 L 95 Oxygen Delivery Method Room Air 02/10/25 18:00 02/10/25 18:30 02/10/25 18:57 Temperature 98.2 F Temperature Source Pulse Rate 72 74 73 Pulse Rate [Left Radial] Pulse Rate [Orthostatic Lying] Pulse Rate [Orthostatic Sitting] Pulse Rate [Orthostatic Standing] Respiratory Rate 18 20 Blood Pressure 111/72 103/76 L 103/76 L Blood Pressure [Orthostatic Lying] Blood Pressure [Orthostatic Sitting] Blood Pressure [Orthostatic Standing] Blood Pressure [Right Arm] Blood Pressure Mean 84 Blood Pressure Mean [Right Arm] 02 Sat by Pulse Oximetry 98 99 Oxygen Delivery Method Room Air Lab Data Lab results reviewed: Yes I reviewed the patient's lab results. Lab Results 02/10/25 16:30: WBC 5.3, RBC 3.43 L, Hgb 10.3 L, Hct 32.8 L, MCV 95.6, MCH 30.0, MCHC 31.4 L, RDW 14.5, Plt Count 249, MPV 9.9, Neut % (Auto) 70.3, Lymph % (Auto) 18.8, Rankin % (Auto) 5.6, Eos % (Auto) 4.3, Baso % (Auto) 0.4, Neut # (Auto) 3.7, Lymph # (Auto) 1.0, Rankin # (Auto) 0.3, Eos # (Auto) 0.2, Baso # (Auto) 0.0, Sodium 134 L, Potassium 4.9, Chloride 100, Carbon Dioxide 25, Anion Gap 13.9, BUN 66 H, Creatinine 1.90 H, Estimated Creat Clear 30, Estimated GFR 27 L, Est GFR ( Amer) 33 L, Glucose 195 H, Calcium 10.5 H, Magnesium 1.7, Total Bilirubin 1.0, AST 37 H, ALT 22, Alkaline Phosphatase 93, Troponin I < 0.01, NT-Pro-B Natriuret Pep 373 H, Total Protein 8.8 H, Albumin 4.6, Globulin 4.2 H, Albumin/Globulin Ratio 1.1, TSH 10.20 H, Thyroxine (T4) 8.2 02/10/25 17:49: Urine Color Yellow, Urine Appearance Clear, Urine pH 6.0, Ur Specific Guthrie 1.010, Urine Protein Negative, Urine Glucose (UA) Trace, Urine Ketones Negative, Urine Blood Negative, Urine Nitrate Negative, Urine Bilirubin Negative, Urine Urobilinogen 0.2, Ur Leukocyte Esterase Trace, Urine WBC 10-20, Ur Squamous Epith Cells 5-10, Urine Bacteria 2+ 02/10/25 16:30 02/10/25 16:30 Orders (Tests/Meds): ED MEDICATIONS Discontinued Medications Generic Name Dose Route Start Last Admin Trade Name Freq PRN Reason Stop Dose Admin Cefdinir 300 mg 02/10/25 18:28 02/10/25 18:48 Cefdinir 300mg Capsule PO 02/10/25 18:29 300 mg ONCE ONE Administration Lactated Ringer's 1,000 mls @ 999 mls/hr 02/10/25 16:56 02/10/25 17:22 Lactated Ringer's 1000 Ml Bag IV 02/10/25 17:56 999 mls/hr .Q1H1M ONE Administration ORDERS Category Date Time Status BNP [NT Pro Brain Natriuretic Pep.] Stat Lab 02/10/25 16:30 Completed Complete Blood Count Auto Diff Stat Lab 02/10/25 16:30 Completed Comprehensive Metabolic Panel Stat Lab 02/10/25 16:30 Completed MAG [Magnesium] Stat Lab 02/10/25 16:30 Completed T4 (Thyroxine) Stat Lab 02/10/25 16:30 Completed TSH [Thyroid Stimulating Hormone] Stat Lab 02/10/25 16:30 Completed Trop I [Troponin I] Stat Lab 02/10/25 16:30 Completed UA [Urinalysis and Microscopic] Stat Lab 02/10/25 17:49 Completed Urine Culture Stat Micro 02/10/25 17:49 Received ECG Data Tracing #1: I reviewed this ECG and interpreted as documented below: Sinus rhythm with a ventricular rate of [address] changes concerning for ischemia. Normal intervals ECG initial impression date: 02/10/25 ECG initial impression time: 17:17 Medical Decision Narrative: In summary, this patient is a 54-year-old female presenting to the Emergency Department for evaluation of lightheadedness, fatigue, low blood pressure at home. Differential diagnoses considered include but are not limited to dehydration, electrolyte derangements, DINORAH, medication adverse reaction, infection, hypothyroidism. Ruling out the most morbid conditions drove assessment. It should be noted patient's history includes extensive cardiovascular history as detailed in HPI as well as type 2 diabetes, hypothyroidism which may or may not be at goal therapy. This complicates all aspects of care by increasing patient's risk for morbidity. She is on multiple medications that could contribute to low blood pressure, including Bumex and spironolactone that could cause volume depletion I reviewed patient's past medical records and noted prior cardiology evaluations for maintenance of health in the setting of CAD and CHF. On exam, the patient is slightly hypotensive with systolics in the 80s, but her vitals are otherwise reassuring. EKG obtained is reassuring. Exam is reassuring, as she is alert, conversational, not toxic appearing. Her only complaint is fatigue, lightheadedness, and dysuria. Cardiopulmonary and abdominal exams are benign. Workup included CBC, CMP, magnesium, TSH, T4, troponin, BNP, urinalysis, EKG. Patient was given a bolus of IV fluids. On reassessment, patient great improvement in her blood pressure after administration of IV fluids. Labs obtained look like she is a little bit dry with elevated BUN and creatinine. Is not significantly different from her baseline, does not meet criteria for DINORAH. Heart exam negative. TSH is mildly elevated with reassuring T4. I advise that she follow-up with primary care for this. Urinalysis is concerning for possible UTI with 2+ bacteria and 10-20 white blood cells in the setting of UTI symptoms. Will treat with cefdinir. Overall, orthostatic vital signs negative, blood pressure improved after IV fluids, and she does have a UTI. I feel that she is appropriate for discharge home with prescription for cefdinir and instructions for decreased diuresis this week since she appears to be volume depleted and close follow-up with PCP as well as with cardiology. Strict return precautions were given Critical Care Critical Care Time Critical Care Time: Yes Attestation: On 02/10/25, the high probability of a clinically significant, sudden or life threatening deterioration of the following system(s) required my full and direct attention, intervention and personal management. The time I documented below is in addition to time spent performing reported procedures but includes the following listed in this critical care notation. Total Time Total Critical Care Time: 35
[2025-02-10 17:32] VITALS: BP 100/51; BP 94/57; BP 97/56; PULSE 74; PULSE 78; PULSE 85
[2025-02-10 17:41] LABS: NT Pro Brain Natriuretic Pep. 373 pg/mL (0-125)
[2025-02-10 17:45] LABS: Troponin I < 0.01 ng/ml (0.00-0.034)
[2025-02-10 17:46] LABS: T4 (Thyroxine) 8.2 ug/dl (5.53-11.0)
[2025-02-10 17:54] LABS: Microscopic, Urine URINE MICROSCOPIC (MICROSCOPIC)
[2025-02-10 17:55] LABS: Appearance,Urine CLEAR (Clear); Bilirubin,Urine Negative (Negative); Blood, Urine Negative (Negative); Color,Urine YELLOW (Yellow); Glucose,Urine (UA) TRACE (Negative); Ketones,Urine Negative (Negative); Leukocyte Esterase,Urine TRACE (Negative); Nitrate,Urine Negative (Negative); Protein,Urine Negative (Negative); Urobilinogen,Urine 0.2 EU/dl (0.2)
[2025-02-10 18:00] VITALS: BP 111/72; PULSE 72; O2SAT 98
[2025-02-10 18:06] LABS: Bacteria,Urine 2+ /lpf
[2025-02-10 18:30] VITALS: BP 103/76; PULSE 74; RESP 18; O2SAT 99
[2025-02-10] MEDS: CEFDINIR 300MG CAPSULE 300 MG PO (18:48)
[2025-02-10 18:57] VITALS: BP 103/76; PULSE 73; RESP 20; TEMP 36.8; O2SAT 99
== END 2025-02-10 18:59 | disposition home or self-care (01) ==
PROVIDERS: Emergency Provider Emergency Medicine; PCP Physician Assistant
DX: I95.9 Hypotension, unspecified (principal); N39.0 Urinary tract infection, site not specified; R30.0 Dysuria; R53.83 Other fatigue; F17.210 Nicotine dependence, cigarettes, uncomplicated
CPT/HCPCS: 80053; 81001; 83735; 83880; 84436; 84443; 84484; 85025; 87086; 93005; 96360; 99284; J7120

== ENCOUNTER 2025-04-12 10:42 | Emergency (ER) | payer OTHER, SELFPAY ==
[2025-04-12] VITALS (8 sets, daily range): BP systolic 72–128; BP diastolic 37–79; PULSE 85–93; RESP 15–27; TEMP 36.8–37; O2SAT 95–98; BMI 46.5
--- OUTSIDE RECORDS SUMMARY | 2025-04-12 10:48 | XMS_ITS | Encounter Summary ---
Author Organization [facility] Address [address] [place] [address] Care Team Providers Care Sed [employer] Teacher Name Role Phone Janice Fitzpatrick Primary Care Provider [phone] Encounter Details Date Type Department Care Team (Latest Contact Info) Description 02/28/2025 Travel Social History Tobacco Use Types Packs/Day [...] place to sleep or slept in a retirement (including now)? 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 0 01/17/2024 CAGE Questionnaire Score 0 024 Utilities Answer Date Recorded In the past 12 months has e [employer], gas, oil, or water company threatened to shut off services in your home? No 01/17/2024 Comments No Sex and Gender Information Value Date Recorded Sex Assigned at Female 04/21/2024 2:15 PM EDT Legal Sex Female 7:37 PM EDT Gender Identity Not on file Sexual Orientation Not on file documented as of this encounter Plan of Treatment Not on file documented as of this encounter Visit Diagnoses Not on filedocumented in this encounter Additional Health Concerns Assessment Noted Time A Body Mass Index follow-up plan has been documented for the patient 04/28/2024 4:17 PM EDT documented as of this encounter Care Teams [employer] Teacher Relationship Specialty Start Date End Date Janice Fitzpatrick PA [address] [place] [address] PCP - General 12/20/21 documented as of this encounter
--- OUTSIDE RECORDS SUMMARY | 2025-04-12 10:48 | XMS_ITS | Clinical Summary ---
Author Organization [facility] Address [address] [place] [address] Care Team Providers Care Interventional Neuroradiologist Name Role Phone Janice Fitzpatrick Primary Care Provider [phone] Allergies Active Allergy Reactions Criticality Noted Date Comments Amoxicillin Unknown (See Comments) Low 12/17/2021 Clarithromycin Rash,Unknown (See Comments) Low 01/03/2014 Rash, sweating, throat closing up Medications atorvastatin (LIPITOR) 10 MG tablet Take 1 tablet by mouth Daily. for cholesterol 3 Active estradiol (ESTRACE) 2 MG tablet Take 1 tablet by mouth Daily. 3 Active FLUoxetine (PROzac) 40 MG capsule Take 2 capsules by mouth Daily. 3 Active hydrOXYzine pamoate (VISTARIL) 25 MG capsule Take 1 capsule by mouth 3 (Three) Times a Day. 3 Active levothyroxine (SYNTHROID, LEVOTHROID) 200 MCG tablet Take 1 tablet by mouth Daily. 3 Active medroxyPROGESTER one (PROVERA) 2.5 MG tablet Take 1 tablet by mouth Daily. 3 Active omeprazole (priLOSEC) 40 MG capsule Take 1 capsule by mouth Daily. 3 Active spironolactone (ALDACTONE) 100 MG tablet Take 1 tablet by mouth Daily. 3 Active torsemide (DEMADEX) 100 MG tablet Take 1 tablet by mouth Daily. 3 Active traZODone (DESYREL) 100 MG tablet Take 1 tablet by mouth every night at bedtime. 3 Active vitamin D (ERGOCALCIFEROL) 1.25 MG (65348 UT) capsule capsule 3 Active buprenorphine-na loxone (SUBOXONE) 8-2 MG per SL tablet 3 Active bumetanide (BUMEX) 2 MG tablet Take 1 tablet by mouth Daily. 3 Active Cholecalciferol 25 MCG (1000 UT) tablet Take 1 tablet by mouth Daily. Active Diclofenac Sodium (VOLTAREN) 1 % gel gel Four times a day 3 Active albuterol sulfate HFA 108 (90 Base) MCG/ACT inhaler Inhale 2 puffs Every 6 (Six) Hours As Needed for Wheezing. 18 g 11 3 Active losartan (COZAAR) 25 MG tabletIndication s:Hypertension, unspecified type TAKE ONE TABLET BY MOUTH ONCE A DAY 30 tablet 4 Active Active Problems Problem Noted Date Diagnosed Date Abnormal EKG 07/07/2023 Abnormal stress test 07/07/2023 Abnormal uterine and vaginal bleeding, unspecifi ed 07/07/2023 CAD (coronary artery disease) 07/07/2023 Calculus of right kidney 07/07/2023 Carotid artery stenosis 07/07/2023 Cholelithiasis 07/07/2023 Claudication 07/07/2023 Close exposure to COVID-19 virus 07/07/2023 Closed fracture of middle phalanx of left ring f nilam 07/07/2023 Daytime somnolence 07/07/2023 Diastolic dysfunction 07/07/2023 Difficult or painful urination 07/07/2023 Dizziness 07/07/2023 Dyspnea 07/07/2023 SOB (shortness of breath) 07/07/2023 Edema 07/07/2023 Encounter for pre-operative cardiovascular clear ance 07/07/2023 Fall 07/07/2023 Fatigue 07/07/2023 Gastroesophageal reflux disease 07/07/2023 HHD (hypertensive heart disease) 07/07/2023 Hydronephrosis of right kidney 07/07/2023 Increased frequency of urination 07/07/2023 Insomnia 07/07/2023 Menopausal symptoms 07/07/2023 Postmenopausal bleeding 07/07/2023 Hormone replacement therapy 07/07/2023 Radiculopathy affecting upper extremity 07/07/20 Restless legs syndrome 07/07/2023 Splenic artery aneurysm 07/07/2023 Stage 3 chronic kidney disease 07/07/2023 Stented coronary artery 07/07/2023 Atypical angina 07/07/2023 Typical angina 07/07/2023 Urinary incontinence, mixed 07/07/2023 Vitamin D deficiency 07/07/2023 Right-sided chest wall pain 07/07/2023 FAISAL (obstructive sleep apnea) 12/07/2022 Assessment & Plan (12/07/2022 2:29 PM EDT): She reports her machine was taken away due to noncompliance and would like to restart it. I advised that insurance may not cover another one but we most certainly can send the order in. If she does receive a new machine she will need a 31 to 90-day FAISAL follow-up. Anxiety 12/02/2022 Knee pain 12/02/2022 Low back pain 12/02/2022 CAD S/P percutaneous coronary angioplasty 2021 CHF (congestive heart failure) 03/28/2022 H/O opioid abuse 03/28/2022 Hyperlipidemia 03/28/2022 Hypothyroidism 03/28/2022 Myocardial infarction greater than 8 weeks ago 0 03/28/2022 Severe obesity (BMI 35.0-39.9) with comorbidity 03/28/2022 HTN (hypertension) 08/10/2011 Assessment & Plan (12/07/2022 2:30 PM EDT): She does not feel like her blood pressures is high at home. She said she will consider doing a trial of losartan. Immunizations Immunization Administration Dates Next Due Tetanus Toxoid 11/09/2009 Tetanus Toxoid, Unspecified 11/09/2009 Family History Medical History Relation Name Comments Diabetes Brother Heart disease Brother Thyroid disease Brother Heart disease Father Diabetes Mother Heart disease Mother Diabetes Sister Relation Name Status Comments Brother Father Mother Sister Social History Tobacco Use Types Packs/Day Years Used Date Smoking Tobacco: Never Passive Smoke Exposure: Never Smokeless Tobacco: Never Tobacco Cessation:Counseling Given: Yes Alcohol Use Standard Drinks/Week Comments Yes 0 (1 standard drink = 0.6 oz pur e alcohol) occ Abuse Screen Answer Date Recorded Unsafe at Home or Work/School Not on file Feels Threatened by Someone? Not on file 04/2023 Does Anyone Keep You from Co ntacting Others or Doint Things Outside the Home? Not on file 05/29/2023 Physical Sign of Abuse Present Not on file 1 Housing Stability Answer Date Recorded Current Living Arrangements Not on file 04/2023 Potentially Unsafe Housing Conditions Not on alessandra e 05/29/2023 Family and Community Support Answer Deshawn e Recorded Help with Day-to-Day Activities Not on file 05/29/2023 Lonely or Isolated Not on file 05/29/2023 Employment Answer Date Recorded Do you want help finding or keeping work or a renuka b? Not on file 05/29/2023 Disabilities Answer Date Recorded Concentrating, Remembering, or Making Decisions Difficulty Not on file 05/29/2023 Doing Errands Independently Difficulty Not on fi le 05/29/2023 Education Answer Date Recorded Help with school or training? Not on file Preferred Language Not on file 05/29/2023 Comments Unknown Sex and Gender Information Value Date Recorded Sex Assigned at Not on file Legal Sex Female 1:21 PM EDT Gender Identity Not on file Sexual Orientation Not on file Last Filed Vital Signs Vital Sign Reading Time Taken Comments Blood Pressure 102/68 07/04/2023 1:00 PM EST Pulse 88 07/04/2023 1:00 PM EST Temperature - - Respiratory Rate - - Oxygen Saturation 93% 07/04/2023 1:00 PM EST Inhaled Oxygen Concentration - - Weight 122 kg (270 lb) 07/04/2023 1:00 PM EST Height 165.1 cm (5' 5 ) 07/04/2023 1:00 PM EST Body Mass Index 44.93 07/04/2023 1:00 PM EST Plan of Treatment Health Maintenance Due Date Last Done Comments Annual Gynecologic Pelvic an d Breast Exam 1968 LIPID PANEL 1968 Pneumococcal Vaccine 50+ (1 of 2 - PCV) 11/19/1987 TDAP/TD VACCINES (1 - Tdap) 11/19/1987 PAP SMEAR 1989 COLOGUARD 2013 COLON CANCER SCREENING 5 YEA R SIGMOIDOSCOPY 2013 COLONOSCOPY [address] CANCER SCREENING 2013 CT COLONOGRAPHY 2013 FECAL OCCULT BLOOD TEST 2013 FIT Testing (1 year) 2013 MAMMOGRAM 11/22/2013 11/23/2011 ZOSTER VACCINE (1 of 2) 2018 ANNUAL PHYSICAL 12/02/2022 HEPATITIS C SCREENING 12/02/2022 COVID-19 Vaccine ( season) 2024 03/28/2022, 09/08/2021, 08/11/2021 INFLUENZA VACCINE 05/21/2025 Insurance [facility] Care Teams Interventional Neuroradiologist Relationship Specialty Start Date End Date Janice Fitzpatrick PA PCP - General Physician Mash Filter Cloth Changer 12/02/22
--- OUTSIDE RECORDS SUMMARY | 2025-04-12 10:48 | XMS_ITS | Encounter Summary ---
Author Organization [facility] Address [address] [place] [address] Care Team Providers Care Gas Roller Operator Name Role Phone Marko Norton MD Primary Care Provider [phone] Janice Fitzpatrick Primary Care Provider [phone] Encounter Details Date Type Department Care Team ([facility] st Contact Info) Description 12/17/2021 Orders Only External Location [address] [place] [address] Provider, External Social History Tobacco Use Types [...] on file documented as of this encounter Procedures Procedure [...] documented as of this encounter Care Teams Gas Roller Operator Relationship Specialty Start Date End Date Marko Norton MD [address] [place] [address] PCP - General 01/01/21 12/19/21 Janice Fitzpatrick PA [address] [place] [address] PCP - General 12/20/21 documented as of this encounter
--- OUTSIDE RECORDS SUMMARY | 2025-04-12 10:48 | XMS_ITS | Encounter Summary ---
Author Organization [facility] Address [address] [place] [address] Care Team Providers Care Business Education Instructor Name Role Phone Janice Fitzpatrick Primary Care Provider [phone] Reason for Referral * Consultation (Routine) - Closed Specialty Diagnoses / Procedures Referred By Jaylin jimenez Referred To Contact Vascular Surgery Diagnoses Hepatic artery aneurysm (CMS/HCC) Janice Fitzpatrick PA [address] [place] [address] Phone: tel: fax: Vascular Surgery [address] [place] [address] Phone: tel: Referral ID Status Reason Start Date Expiration Date V isits Requested Visits Authorized [id number] Closed Specialty Services Required 01/26/2022 07/28/2023 1 1 Encounter Details Date Type Department Care Team (Late st Contact Info) Description 01/26/2022 Community Orders Community Practice [address] [place] [address] Janice Fitzpatrick PA [address] [place] [address] Hepatic artery aneurysm (CMS/HCC) (Primary [...] as of this encounter Plan of Treatment Scheduled Referrals Name Type Priority Associated Diagnoses [...] documented as of this encounter Care Teams Business Education Instructor Relationship Specialty Start Date End Date Janice Fitzpatrick PA [address] [place] [address] PCP - General 12/20/21 documented as of this encounter
--- OUTSIDE RECORDS SUMMARY | 2025-04-12 10:48 | XMS_ITS | Encounter Summary ---
Author Organization [facility] Address [address] [place] [address] Care Team Providers Care Clicking Machine Operator Name Role Phone Janice Fitzpatrick Primary Care Provider [phone] Encounter Details Date Type Department Care Team ([facility] st Contact Info) Description 12/31/2021 Community [facility] Community Practice [address] [place] [address] Janice Fitzpatrick PA [address] [place] [address] Aneurysm of splenic artery (CMS/HCC) [...] documented as of this encounter Care Teams Clicking Machine Operator Relationship Specialty Start Date End Date Janice Fitzpatrick PA [address] [place] [address] PCP - General 12/20/21 documented as of this encounter
--- OUTSIDE RECORDS SUMMARY | 2025-04-12 10:48 | XMS_ITS | Clinical Summary ---
Author Organization [facility] Address [address] [place] [address] Care Team Providers Care Plant Sciences Professor Name Role Phone Janice Fitzpatrick Primary Care Provider [phone] Allergies Active Allergy Reactions Criticality Noted Date [...] of full dose- 100 mg. 4 Active Active Problems Problem Noted Date [...] Encounters Date Type Department Care Team Description 02/28/2025 Travel from Last 3 Months Immunizations Immunization [...] place to sleep or slept in a alf (including now)? No 01/17/2024 CAGE ASSESSMENT Answer [...] drink first t nelli in the morning (EYE-SCREWHEAD STONER AND POLISHER) to steady your nerves or to get [...] 05/06/2024 6:17 PM EDT Plan of Treatment Health Maintenance Due Date [...] of 2) 2018 [facility]-Depression Screening 03/28/2023 03/28/2022 [id number] Vaccine ( - season) 2024 03/28/2022, 09/08/2021, 08/11/2021 [facility]-Hepatitis B Vaccines (3 of 3 - Hep B Twinrix 3-dose series) 09/24/2024 04/24/2024, 01/25/2024 [facility]-Influenza Vaccine (#1) 2025 [facility]-Diabetes: Hemoglobin A1C Discontinued 01/17/2024, 03/30/2015 [...] Reactive Non Reactive 01/23/2024 11:29 AM EDT [facility] Comment:Screening for HIV 1 & 2 antibodies, and P24 antigen is NONREACTIVE. No confirmatory testing is required. Blood Venous blood specimen / Unknown Venipuncture / Unknown 01/23/2024 10:51 AM EDT 01/23/2024 10:57 AM EDT Sary Dawson MD LAB BLOOD ORDERABLES Final R esult Performing Organization Address [facility] Co de Phone Number [facility] [address] [place] [address] * Hepatitis C Antibody (01/23/2024 10:51 AM EDT) Hepatitis C Antibody Negative Negative 01/23/2024 11:25 AM EDT [facility] Blood Venous blood specimen / Unknown Venipuncture / Unknown 01/23/2024 10:51 AM EDT 01/23/2024 10:57 AM EDT us Sary Dawson MD LAB BLOOD ORDERABLES Final R esult Performing Organization Address City/[facility]/ZIP Co de Phone Number [facility] [address] [place] [address] * (ABNORMAL) Hemoglobin A1c (01/17/2024 4:06 AM EDT) Hemoglobin A1c 6.0(H) <5.7 % 01/17/2024 12:39 PM EDT [facility] Blood Venous blood specimen / Unknown Venipuncture / Unknown 01/17/2024 4:06 AM EDT 01/17/2024 4:15 AM EDT Narrative [facility] - 01/17/2024 12:39 PM EDT HA1C Interpretive Data: Diagnosis of Diabetes: Diabetic > or = 6.5% Pre-diabetic 5.7 to 6.4% Non-diabetic < or = 5.6% Glycemic Targets for Type I and Type II Diabetics: Non- Adults <7.0% Adults <6.0% Children and Adolescents <7.5% Source: [place] [employer]. Standards of medical care in diabetes,2017. Diabetes Care.2017:40 (suppl 1):S1-S135. HbA1c assay performed by an ion-exchange chromatography method that is certified traceable to the DCCT. Marc Weinberg MD LAB BLOOD ORDERABLES Final Result [facility] [address] [place] [address] from Last 3 Months or Most Recently Relevant to Health Maintenance Insurance [address] [place] [id number] [employer] [facility] MEDICAID Advance Directives * Full Code (Latest [...] Patient has decision-making capacity? Yes Care Teams Plant Sciences Professor Relationship Specialty Start Date End Date Janice Fitzpatrick PA [address] [place] [address] PCP - General 12/20/21
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
[2025-04-12] MEDS: LACTATED RINGERS 1000ML 1,000 ML 999 ML IV (11:12)
[2025-04-12 11:37] LABS: Hematocrit 31.6 % (37.0-47.0); Hemoglobin 10.1 g/dL (12.2-16.2); Immature Granulocytes % 0.7 %; Mean Corpuscular HGB Conc 32.0 g/dL (31.8-35.4); Mean Corpuscular Hemoglobin 30.2 pg (27.0-31.2); Mean Corpuscular Volume 94.6 fl (81-99); Nucleated Red Blood Cells % 0 %; Platelet Count 270 K/mm3 (142-424); Red Blood Count 3.34 M/mm3 (4.20-5.40); Red Cell Distribution Width-SD 48.8 fL; White Blood Count 6.9 K/mm3 (4.8-10.8)
[2025-04-12 11:40] LABS: Chloride 96 mmol/L (98-107); Potassium 4.1 mmoL/L (3.5-5.1); Sodium 134 mmol/L (136-145)
[2025-04-12 11:43] LABS: Alanine Aminotransferase 18 U/L (12-78); Alkaline Phosphatase 95 U/L (38-126); Anion Gap 21.1 mEq/L (5-15); Aspartate Amino Transferase 32 U/L (14-36); Bilirubin,Total 0.6 mg/dl (0.2-1.3); Blood Urea Nitrogen 45 mg/dl (7-17); Calcium 9.2 mg/dl (8.4-10.2); Carbon Dioxide 21 mmol/L (22.0-30.0); Creatinine Clearance Estimated 17 mL/min (50-200); Creatinine,Serum 3.30 mg/dl (0.52-1.04); Estimated Glomerular Filt Rate 14 ml/min (>60); GFR (African American) 17 ML/MIN (>60); Glucose 100 mg/dl (74-100); Total Protein,Serum 7.8 g/dl (6.3-8.2)
[2025-04-12 12:05] LABS: Albumin Level 4.6 g/dl (3.5-5.0); Albumin/Globulin Ratio 1.4 (1.1-1.8); Globulin 3.2 g/dL (1.3-3.2)
[2025-04-12] MEDS: LACTATED RINGERS 1000ML 500 ML 999 ML IV (12:11)
[2025-04-12 12:58] LABS: Albumin Level 4.2 g/dl (3.5-5.0); Chloride 97 mmol/L (98-107); Sodium 133 mmol/L (136-145)
[2025-04-12 12:59] LABS: Potassium 3.9 mmoL/L (3.5-5.1)
[2025-04-12 13:01] LABS: Alanine Aminotransferase 16 U/L (12-78); Anion Gap 21.9 mEq/L (5-15); Aspartate Amino Transferase 29 U/L (14-36); Blood Urea Nitrogen 43 mg/dl (7-17); Carbon Dioxide 18 mmol/L (22.0-30.0); Creatinine Clearance Estimated 19 mL/min (50-200); Creatinine,Serum 3.00 mg/dl (0.52-1.04); Estimated Glomerular Filt Rate 16 ml/min (>60); GFR (African American) 20 ML/MIN (>60)
[2025-04-12 13:02] LABS: Albumin/Globulin Ratio 1.4 (1.1-1.8); Alkaline Phosphatase 91 U/L (38-126); Bilirubin,Total 0.6 mg/dl (0.2-1.3); Calcium 8.9 mg/dl (8.4-10.2); Globulin 3.1 g/dL (1.3-3.2); Glucose 92 mg/dl (74-100); Total Protein,Serum 7.3 g/dl (6.3-8.2)
== END 2025-04-12 13:25 | disposition home or self-care (01) ==
PROVIDERS: Emergency Provider Student in an Organized Health Care Education/Training Program; PCP Physician Assistant
DX: N17.9 Acute kidney failure, unspecified (principal); Z13.9 Encounter for screening, unspecified; E78.5 Hyperlipidemia, unspecified; V43.52XA Car driver injured in collision with other type car in traffic accident, initial encounter
CPT/HCPCS: 80053; 80320; 85025; 96365; 99284; J7120

== ENCOUNTER 2025-04-15 14:59 | Emergency (ER) | payer OTHER, SELFPAY ==
[2025-04-15] VITALS (31 sets, daily range): BP systolic 92–184; BP diastolic 56–130; PULSE 70–120; RESP 12–23; TEMP 36.6–36.9; O2SAT 91–100; BMI 41.5
--- NOTE | 2025-04-15 15:29 | ED_ITS ---
Discharge Plan Disposition Patient Disposition: Home, Self-Care Condition: Good Prescriptions Prescriptions: No Action buprenorphine-naloxone 8-2 mg tablet, sublingual 2 tab SL DAILY atorvastatin [Lipitor] 20 mg tablet 20 mg PO DAILY Qty: 30 2RF spironolactone 100 mg tablet 100 mg PO DAILY Qty: 90 3RF fluoxetine 40 mg capsule 80 mg PO DAILY omeprazole 40 mg capsule,delayed release(DR/EC) 40 mg PO DAILY levothyroxine 200 mcg tablet 200 mcg PO DAILY ergocalciferol (vitamin D2) 1,250 mcg (50,000 unit) capsule 50,000 unit PO WEEKLY hydroxyzine pamoate 25 mg capsule 25 mg PO HSP PRN (Reason: Insomnia) allopurinol 100 mg Tablet 100 mg PO DAILY 30 Days Qty: 30 0RF cefdinir 300 mg capsule 300 mg PO BID 10 Days Qty: 20 0RF ondansetron 4 mg tablet,disintegrating 4 mg PO Q8H PRN (Reason: nausea and vomiting) 4 Days Qty: 12 0RF medroxyprogesterone 2.5 mg tablet 2.5 mg PO DAILY dapagliflozin propanediol [Farxiga] 10 mg tablet 10 mg PO DAILY potassium chloride [Klor-Con M20] 20 mEq Tablet,Er Particles/Crystals 40 meq PO DAILY 30 Days Qty: 60 0RF bumetanide 1 mg Tablet 2 mg PO DAILY 30 Days Qty: 60 0RF Referrals Follow up/Referrals: Janice Fitzpatrick PA [Primary Care Provider, Medical] - See instructions Nico Blanco DO [Staff Physician, Orthopedics] - See instructions Activity Restrictions/Add. Instructions Additional Instructions/Restrictions: You will need to follow-up with Dr. Blanco to the orthopedic doctor. Please call them tomorrow morning to let them know that you need to see them in clinic. Take Tylenol and ibuprofen for your fracture. Keep the splint on and dry at all times. Clinical Impressions Clinical Impression: Distal radial fracture, Fracture of ulnar styloid Instructions Patient Instructions: DI for Moderate Sedation, Moderate Sedation, DI for Sedation-Child Print Language Print Language: Greenlandic Discharge ED Provider: Mercedez Spencer General Adult HPI General Chief complaint: Extremity Injury, Upper Stated complaint: Fell on L wrist Time Seen by Provider: 04/15/25 15:28 History of Present Illness HPI narrative: Patient is a 54-year-old female who presented to the emergency department with left wrist pain. Patient states that she fell 4 days ago on her left wrist has continued to have pain which is what brought her here to the emergency department. Patient states that she had a trip and fall onto the left wrist and did not have any other injuries at that time. Patient reports swelling in the left upper extremity. Patient has no other complaints at this time. Related Data Home Medications ?Medication ?Instructions ?Recorded ?Confirmed buprenorphine 8 mg-naloxone 2 mg 2 tab sublingual COREEN Y 03/17/22 02/03/25 sublingual tablet ergocalciferol (vitamin D2) 1,250 50,000 unit PO WEEKL Y 06/10/24 02/03/25 mcg (50,000 unit) capsule fluoxetine 40 mg capsule 80 mg PO DAILY 06/10/2401/19 hydroxyzine pamoate 25 mg capsule 25 mg PO HSP PRN Ins omnia 06/10/24 02/03/25 levothyroxine 200 mcg tablet 200 mcg PO DAILY 06/10/24 02/03/25 omeprazole 40 mg capsule,delayed 40 mg PO DAILY 02/03/25 release dapagliflozin propanediol 10 mg 10 mg PO DAILY 5 02/03/25 tablet (Farxiga) medroxyprogesterone 2.5 mg tablet 2.5 mg PO DAILY 09/2102/03/25 Previous Rx's ?Medication ?Instructions ?Recorded atorvastatin 20 mg tablet (Lipitor) 20 mg PO DAILY #30 tabs 04/23/24 allopurinol 100 mg tablet 100 mg PO DAILY 30 days #30 tabs 06/12/24 spironolactone 100 mg tablet 100 mg PO DAILY #90 tabs 08/20/24 bumetanide 1 mg tablet 2 mg (2 x 1 mg) PO DAILY 30 days 10/09/24 #60 tabs potassium chloride 20 mEq 40 meq (2 x 20 mEq) PO DAILY 30 10/09/24 tablet,extended days #60 tabs release(part/cryst) (Klor-Con M) cefdinir 300 mg capsule 300 mg PO BID 10 days #20 ca ps 02/10/25 ondansetron 4 mg disintegrating 4 mg PO Q8H PRN nausea and 02/10/25 tablet vomiting 4 days #12 tabs Allergies Allergy/AdvReac Type Severity Reaction Status Date / Time clarithromycin (From BIAXIN) Allergy Mild Verified 02/03/25 09:01 amoxicillin Allergy Verified 02/03/25 09:01 [facility] Disclaimer: The information contained in this section may have been updated after the patient was seen, as this information can be updated by other users. Medical History Acute on chronic HFrEF (heart failure with reduced ejection fraction) Symptomatic cholelithiasis GERD (gastroesophageal reflux disease) Asthma IBS (irritable bowel syndrome) Typical angina Depressed Anxiety Restless legs syndrome Insomnia Daytime somnolence Abnormal EKG Unstable angina Dizziness Atypical angina Claudication Chest pain Gastroesophageal reflux disease Preoperative clearance Diastolic dysfunction Vitamin D deficiency Hypothyroidism HLD (hyperlipidemia) HHD (hypertensive heart disease) CAD (coronary artery disease) Neck Pain Radiculopathy affecting upper extremity Surgical History History of laparoscopic cholecystectomy S/P tonsillectomy and adenoidectomy Stented coronary artery H/O lithotripsy History of hip replacement Stented coronary artery Family History Other Family history of COPD (chronic obstructive pulmonary disease) Family history of cancer Family history of myocardial infarction Social History Smoking Status: Never smoker second hand exposure: No alcohol intake: never substance use type: denies use current occupational status: employed and unemployed Travel in the last 8 weeks?: None household members: none housing: house 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 current occupational exposures/hazards: No caffeine: Yes Have you lived/traveled outside US in past 30 days?: No Contact w/someone who lives/traveled outside US past 30 days?: No Exposure to someone with infectious disease in past 14 days?: No Do you have a fever (greater than 100.4 F or 38 C)?: No Have you tested positive for COVID-19?: No Exposed to someone with COVID-19 in past 14 days?: No Do you have a sore throat?: No Do you have a cough?: No Do you have any weakness?: No Do you have any diarrhea?: No Are you experiencing any unusual bleeding?: No Do you have any muscle aches/pain?: No Do you have any abdominal pain?: No Are you experiencing loss of taste or smell?: No Other Medical History Have you received the Flu Vaccine for this season: No Have you received the Pneumonia Vaccine: No ROS Obtained: Yes All systems reviewed & no additional complaints except as documented and Yes Systems reviewed as appropriate & no additional complaints except as documented Physical Exam General General appearance: alert and in no apparent distress Head Head exam: atraumatic, normocephalic and normal inspection Eye Eye exam: Present normal appearance, PERRL and EOMI; Absent scleral icterus ENT ENT exam: Present normal exam and normal external ear exam Neck Neck exam: Present normal inspection and full ROM Chest Chest inspection: Present normal inspection and symmetric chest wall rise Respiratory Respiratory exam: Present normal lung sounds bilaterally; Absent respiratory distress or wheezes Cardiovascular Cardiovascular exam: Present regular rate, normal rhythm and normal heart sounds Abdominal Exam Abdominal exam: Present soft and distention; Absent tenderness, guarding or rebound Extremities Exam Extremities exam: Present normal inspection, full ROM and other (LUE with mild swelling of the wrist and forearm, obvious deformity, tenderness @ the wrist, NVI, 2 + radial pulse) Back Exam Back exam: Present normal inspection and full ROM Neurological Exam Neurological exam: Present alert and oriented X3 Psychiatric Psychiatric exam: Present normal affect and normal mood Skin Skin exam: Present warm and dry Medical Decision Making Medical Records Medical records reviewed: Yes I reviewed the patient's medical records. Screening: Per USPSTF and CDC recommendations, given the prevalence of disease in our region, it is our hospital?s policy to screen for HIV and viral Hepatitis for all patients aged 18 and over and those with ongoing risk factors. Wolfgang Inquiry Pt receiving controlled substance: No Vital Signs: 04/15/25 15:34 04/15/25 16:40 04/15/25 17:07 Temperature 98.5 F Temperature Source Oral Pulse Rate 86 76 Pulse Rate [Right] 81 Respiratory Rate 16 13 13 Blood Pressure 122/85 109/68 L Blood Pressure [Right Arm] 139/70 Blood Pressure Mean [Right Arm] 93 Blood Pressure Source Blood Pressure Source [Right Arm] Blood Pressure Position Blood Pressure Position [Right Arm] 02 Sat by Pulse Oximetry 97 96 Oxygen Delivery Method Oxygen Flow Rate (LPM) 04/15/25 17:12 04/15/25 17:21 04/15/25 17:25 Temperature Temperature Source Pulse Rate 75 100 H 83 Pulse Rate [Right] Respiratory Rate 16 21 19 Blood Pressure 109/68 L 164/98 H 130/76 Blood Pressure [Right Arm] Blood Pressure Mean [Right Arm] Blood Pressure Source Automatic Cuff Blood Pressure Source [Right Arm] Blood Pressure Position Supine Blood Pressure Position [Right Arm] 02 Sat by Pulse Oximetry 96 97 96 Oxygen Delivery Method Room Air Oxygen Flow Rate (LPM) 04/15/25 17:38 04/15/25 17:40 04/15/25 17:46 Temperature 98.0 F Temperature Source Oral Pulse Rate Pulse Rate [Right] 70 73 120 H Respiratory Rate 14 18 22 Blood Pressure Blood Pressure [Right Arm] 103/63 L 109/70 L 156/91 H Blood Pressure Mean [Right Arm] 76 83 112 Blood Pressure Source Blood Pressure Source [Right Arm] Automatic Cuff Automatic Cuff Blood Pressure Position Blood Pressure Position [Right Arm] Supine Supine 02 Sat by Pulse Oximetry 100 97 96 Oxygen Delivery Method Nasal Cannula Nasal Cannula Nasal Cannula Oxygen Flow Rate (LPM) 2 2 2 04/15/25 17:50 04/15/25 17:53 04/15/25 17:55 Temperature Temperature Source Pulse Rate Pulse Rate [Right] 106 H 90 81 Respiratory Rate 22 13 17 Blood Pressure Blood Pressure [Right Arm] 184/119 H 160/130 H 113/69 Blood Pressure Mean [Right Arm] 140 140 83 Blood Pressure Source Blood Pressure Source [Right Arm] Automatic Cuff Automatic Cuff Automatic Cuff Blood Pressure Position Blood Pressure Position [Right Arm] Supine Supine Supine 02 Sat by Pulse Oximetry 92 L 91 L 98 Oxygen Delivery Method Nasal Cannula Nasal Cannula Nasal Cannula Oxygen Flow Rate (LPM) 2 2 2 04/15/25 18:00 04/15/25 18:02 04/15/25 18:05 Temperature Temperature Source Pulse Rate Pulse Rate [Right] 85 82 86 Respiratory Rate 14 14 23 Blood Pressure Blood Pressure [Right Arm] 92/67 L 109/60 L 114/62 Blood Pressure Mean [Right Arm] 75 76 79 Blood Pressure Source Blood Pressure Source [Right Arm] Automatic Cuff Automatic Cuff Automatic Cuff Blood Pressure Position Blood Pressure Position [Right Arm] Supine Supine Supine 02 Sat by Pulse Oximetry 99 98 98 Oxygen Delivery Method Nasal Cannula Nasal Cannula Nasal Cannula Oxygen Flow Rate (LPM) 2 2 2 04/15/25 18:10 04/15/25 18:18 04/15/25 18:25 Temperature Temperature Source Pulse Rate Pulse Rate [Right] 85 87 78 Respiratory Rate 16 19 15 Blood Pressure Blood Pressure [Right Arm] 127/72 133/60 120/67 Blood Pressure Mean [Right Arm] 90 84 84 Blood Pressure Source Blood Pressure Source [Right Arm] Automatic Cuff Automatic Cuff Automatic Cuff Blood Pressure Position Blood Pressure Position [Right Arm] Supine Supine Supine 02 Sat by Pulse Oximetry 99 99 99 Oxygen Delivery Method Nasal Cannula Nasal Cannula Nasal Cannula Oxygen Flow Rate (LPM) 2 2 2 04/15/25 18:30 04/15/25 18:35 04/15/25 18:40 Temperature Temperature Source Pulse Rate Pulse Rate [Right] 79 79 78 Respiratory Rate 16 16 15 Blood Pressure Blood Pressure [Right Arm] 124/74 121/71 109/70 L Blood Pressure Mean [Right Arm] 90 87 83 Blood Pressure Source Blood Pressure Source [Right Arm] Automatic Cuff Automatic Cuff Automatic Cuff Blood Pressure Position Blood Pressure Position [Right Arm] Supine Supine Supine 02 Sat by Pulse Oximetry 100 100 99 Oxygen Delivery Method Nasal Cannula Nasal Cannula Nasal Cannula Oxygen Flow Rate (LPM) 2 2 2 04/15/25 18:45 04/15/25 18:50 04/15/25 19:00 Temperature Temperature Source Pulse Rate 80 Pulse Rate [Right] 74 75 Respiratory Rate 14 15 13 Blood Pressure 122/77 Blood Pressure [Right Arm] 120/76 111/68 Blood Pressure Mean [Right Arm] 90 82 Blood Pressure Source Blood Pressure Source [Right Arm] Automatic Cuff Automatic Cuff Blood Pressure Position Blood Pressure Position [Right Arm] Supine Supine 02 Sat by Pulse Oximetry 100 99 98 Oxygen Delivery Method Nasal Cannula Room Air Oxygen Flow Rate (LPM) 2 04/15/25 19:05 04/15/25 19:10 04/15/25 19:15 Temperature Temperature Source Pulse Rate 75 76 77 Pulse Rate [Right] Respiratory Rate 16 13 12 Blood Pressure 117/69 118/64 125/76 Blood Pressure [Right Arm] Blood Pressure Mean [Right Arm] Blood Pressure Source Blood Pressure Source [Right Arm] Blood Pressure Position Blood Pressure Position [Right Arm] 02 Sat by Pulse Oximetry 97 99 98 Oxygen Delivery Method Oxygen Flow Rate (LPM) 04/15/25 19:20 04/15/25 19:25 04/15/25 19:30 Temperature Temperature Source Pulse Rate 78 77 75 Pulse Rate [Right] Respiratory Rate 15 15 12 Blood Pressure 120/70 111/69 125/56 L Blood Pressure [Right Arm] Blood Pressure Mean [Right Arm] Blood Pressure Source Blood Pressure Source [Right Arm] Blood Pressure Position Blood Pressure Position [Right Arm] 02 Sat by Pulse Oximetry 97 97 97 Oxygen Delivery Method Oxygen Flow Rate (LPM) 04/15/25 19:58 Temperature 98 F Temperature Source Pulse Rate 76 Pulse Rate [Right] Respiratory Rate 16 Blood Pressure 117/63 Blood Pressure [Right Arm] Blood Pressure Mean [Right Arm] Blood Pressure Source Blood Pressure Source [Right Arm] Blood Pressure Position Sitting Blood Pressure Position [Right Arm] 02 Sat by Pulse Oximetry Oxygen Delivery Method Room Air Oxygen Flow Rate (LPM) Lab Data Lab results reviewed: Yes I reviewed the patient's lab results. Orders (Tests/Meds): ED MEDICATIONS Discontinued Medications Generic Name Dose Route Start Last Admin Trade Name Freq PRN Reason Stop Dose Admin Acetaminophen 1,000 mg 04/15/25 15:43 04/15/25 16:07 Acetaminophen 500mg Tab PO 04/15/25 15:44 1,000 mg ONCE ONE Administration Lactated Ringer's 1,000 mls @ 999 mls/hr 04/15/25 18:50 04/15/25 19:57 Lactated Ringer's 1000 Ml Bag IV 04/15/25 19:50 Infused .Q1H1M ONE Infusion Ibuprofen 800 mg 04/15/25 15:44 04/15/25 16:07 Ibuprofen 800 Mg Tablet PO 04/15/25 15:45 800 mg ONCE ONE Administration Ketamine HCl 34.0194 mg 04/15/25 16:26 04/15/25 17:16 Ketamine 50mg/1ml Syringe IV 04/15/25 16:27 34.0194 mg ONCE ONE Administration Ketamine HCl 300 mg 04/15/25 17:30 04/15/25 18:43 Ketamine 50mg/1ml Syringe IV 04/15/25 17:31 Not Given ONCE ONE Ketamine HCl 100 mg 04/15/25 18:48 04/15/25 18:50 Ketamine 50mg/1ml Syringe IV 04/15/25 18:49 100 mg ONCE ONE Administration Lidocaine HCl 10 ml 04/15/25 16:26 04/15/25 17:16 Lidocaine 1% 10ml Mdv IM 04/15/25 16:27 10 ml ONCE ONE Administration Propofol 330 mg 04/15/25 18:45 04/15/25 18:48 Propofol 10mg/Ml 20ml Vial IV 04/15/25 18:46 330 mg ONCE ONE Administration ORDERS Category Date Time Status Forearm XR left 2 views [XR forearm LT 2V] Stat Exams 04/15/25 15:43 Completed Hand XR left minimum 3 views [XR hand LT min 3V] Stat Exams 04/15/25 15:43 Completed Wrist XR left 2 views [XR wrist LT 2V] Stat Exams 04/15/25 17:25 Completed Wrist XR left 2 views [XR wrist LT 2V] Stat Exams 04/15/25 17:52 Completed Wrist XR left minimum 3 views [XR wrist LT min 3V] Stat Exams 04/15/25 15:43 Completed Medical Decision Narrative: Patient is a 64-year-old female who presented to the emergency department with left wrist pain. Patient fell 4 days prior. On arrival, patient was hemodynamically stable with unremarkable vital signs. Differential included but not limited to: Fracture, dislocation, sprain, strain, amongst others. Patient was given pain medications and x-rays were obtained. On exam, patient did have mild swelling, obvious deformity at the wrist but was otherwise neurovasc intact with an appropriate radial pulse. X-rays were reviewed and interpreted by myself and showed a distal radius fracture that was comminuted in nature, displaced. I discussed the fracture with the on-call orthopedic doctor who recommended reduction and splinting and following up in clinic. Hematoma block was performed and pain dose ketamine was attempted however patient was not injured for 4 days and therefore required conscious sedation for fracture reduction and splinting. Patient tolerated the procedure and patient woke up appropriately and was discharged with outpatient referral to orthopedics and splint care instructions. Patient was otherwise discharged home in stable condition. Procedures Orthopedic Fracture Reduction Fracture #1: Time Out Performed: Yes Side: left Fracture Reduction Location: radius Analgesia: procedural sedation and hematoma block Technique: direct manipulation Post Reduction X-rays Demonstrate: acceptable reduction Post-reduction neuro exam: intact Post-reduction vascular exam: no change Splint Applied: Yes Patient Tolerated Procedure: well Orthopedic Splinting/Casting Injury #1: Side: left Upper Extremity Injury Location: forearm Upper Extremity Immobilizer: sugar tong splint Post Cast/Splinting Neuro Status: intact Post Cast/Splinting Vasc Status: intact Procedural Sedation A heart and lung assessment was performed on this patient at: 07:30 Mallampati Score:: Class I Indication: fracture/dislocation reduction ASA Class: I Preparation: color television console monitor applied, pulse oximeter, capnometry used, supplemental O2 applied, reversal agents at bedside, suction/airway equipment at bedside and IV secured Ketamine: IV Patient Tolerated Procedure: well Complications: none Interventions: oxygen applied Critical Care Critical Care Time Critical Care Time: Yes Attestation: On 04/15/25, the high probability of a clinically significant, sudden or life threatening deterioration of the following system(s) required my full and direct attention, intervention and personal management. The time I documented below is in addition to time spent performing reported procedures but includes the following listed in this critical care notation. Total Time Total Critical Care Time: 30
--- OUTSIDE RECORDS SUMMARY | 2025-04-15 15:38 | XMS_ITS | Clinical Summary ---
Author Organization [facility] Address [address] [place] [address] Care Team Providers Care Process Control Board Operator Name Role Phone Janice Fitzpatrick Primary Care Provider [phone] Allergies Active Allergy Reactions Criticality Noted Date [...] place to sleep or slept in a residential (including now)? No 01/17/2024 CAGE ASSESSMENT Answer [...] drink first t nelli in the morning (EYE-DAY CARE HOME PROVIDER) to steady your nerves or to get [...] of 2) 2018 [facility]-Depression Screening 03/28/2023 03/28/2022 [id number] Vaccine ( - season) 2024 03/28/2022, 09/08/2021, [...] ORDERABLES Final R esult Performing Organization Address City/[facility] Co de Phone Number [facility] [address] [place] [address] * Hepatitis C Antibody (01/23/2024 10:51 AM EDT) Hepatitis C Antibody Negative Negative 01/23/2024 11:25 AM EDT [facility] Blood Venous blood specimen / Unknown Venipuncture / Unknown 01/23/2024 10:51 AM EDT 01/23/2024 10:57 AM EDT us Sary Dawson MD LAB BLOOD ORDERABLES Final R esult Performing Organization Address City/[facility]/ZIP Co de Phone Number [facility] [address] [place] [address] * (ABNORMAL) Hemoglobin A1c (01/17/2024 4:06 AM [...] Adults <6.0% Children and Adolescents <7.5% Source: [place] [employer]. Standards of medical care in diabetes,2017. Diabetes Care.2017:40 (suppl 1):S1-S135. HbA1c assay performed by an ion-exchange chromatography method that is certified traceable to the DCCT. Marc Weinberg MD LAB BLOOD ORDERABLES Final Result [facility] [address] [place] [address] from Last 3 Months or Most Recently Relevant to Health Maintenance Insurance [address] [place] [id number] [employer] [facility] MEDICAID Advance Directives * Full Code (Latest [...] Patient has decision-making capacity? Yes Care Teams Process Control Board Operator Relationship Specialty Start Date End Date Janice Fitzpatrick PA [address] [place] [address] PCP - General 12/20/21
--- OUTSIDE RECORDS SUMMARY | 2025-04-15 15:38 | XMS_ITS | Encounter Summary ---
Author Organization Healthcare Address [address] [place] [address] Care Team Providers Care News Anchor Name Role Phone Marko Norton MD Primary Care Provider [phone] Janice Fitzpatrick Primary Care Provider [phone] Encounter Details Date Type Department Care Team ([facility] st Contact Info) Description 12/17/2021 Orders Only External Location [address] [place] [address] Provider, External Social History Tobacco Use Types [...] documented as of this encounter Care Teams News Anchor Relationship Specialty Start Date End Date Marko Norton MD [address] [place] [address] PCP - General 01/01/21 12/19/21 Janice Fitzpatrick PA [address] [place] [address] PCP - General 12/20/21 documented as of this encounter
--- OUTSIDE RECORDS SUMMARY | 2025-04-15 15:38 | XMS_ITS | Encounter Summary ---
Author Organization [facility] Address [address] [place] [address] Care Team Providers Care Preanalytics Team Lead Name Role Phone Janice Fitzpatrick Primary Care Provider [phone] Encounter Details Date Type Department Care Team ([facility] st Contact Info) Description 12/31/2021 Community [facility] [address] [place] [address] Janice Fitzpatrick PA [address] [place] [address] Aneurysm of splenic artery (CMS/HCC) [...] documented as of this encounter Care Teams Preanalytics Team Lead Relationship Specialty Start Date End Date Janice Fitzpatrick PA [address] [place] [address] PCP - General 12/20/21 documented as of this encounter
--- OUTSIDE RECORDS SUMMARY | 2025-04-15 15:38 | XMS_ITS | Encounter Summary ---
Author Organization [facility] Address [address] [place] [address] Care Team Providers Care Home Decorator Name Role Phone Janice Fitzpatrick Primary Care Provider [phone] Reason for Referral * Consultation (Routine) - Closed Specialty Diagnoses / Procedures Referred By Jaylin jimenez Referred To Contact Vascular Surgery Diagnoses Hepatic artery aneurysm (CMS/HCC) Janice Fitzpatrick PA [address] [place] [address] Phone: tel: fax: Vascular Surgery [address] [place] [address] Phone: tel: Referral ID Status Reason Start Date Expiration Date V isits Requested Visits Authorized [id number] Closed Specialty Services Required 01/26/2022 07/28/2023 1 1 Encounter Details Date Type Department Care Team (Late st Contact Info) Description 01/26/2022 Community [facility] [address] [place] [address] Janice Fitzpatrick PA [address] [place] [address] Hepatic artery aneurysm (CMS/HCC) (Primary [...] documented as of this encounter Care Teams Home Decorator Relationship Specialty Start Date End Date Janice Fitzpatrick PA [address] [place] [address] PCP - General 12/20/21 documented as of this encounter
--- OUTSIDE RECORDS SUMMARY | 2025-04-15 15:39 | XMS_ITS | Clinical Summary ---
Author Organization [facility] Address [address] [place] [address] Care Team Providers Care Curb And Gutter Laborer Name Role Phone Janice Fitzpatrick Primary Care Provider [phone] Allergies Active Allergy Reactions Criticality Noted Date [...] 3 Active vitamin D (ERGOCALCIFEROL) 1.25 MG (46603 UT) capsule capsule 3 Active buprenorphine-na loxone [...] 03/28/2022, 09/08/2021, 08/11/2021 INFLUENZA VACCINE 05/21/2025 Insurance [facility] Care Teams Curb And Gutter Laborer Relationship Specialty Start Date End Date Janice Fitzpatrick PA PCP - General Physician Data Entry Assistant 12/02/22
--- OUTSIDE RECORDS SUMMARY | 2025-04-15 15:39 | XMS_ITS | Encounter Summary ---
Author Organization [facility] Address [address] [place] [address] Care Team Providers Care House Detective Name Role Phone Janice Fitzpatrick Primary Care Provider [phone] Encounter Details Date Type Department Care Team [...] place to sleep or slept in a senior living (including now)? No 01/17/2024 CAGE ASSESSMENT Answer [...] drink first t nelli in the morning (EYE-NOCTURNIST) to steady your nerves or to get rid of a hangover? 0 01/17/2024 CAGE Questionnaire Score 0 024 Utilities Answer Date Recorded In the past 12 months has e [employer], gas, oil, or water company threatened to [...] documented as of this encounter Care Teams House Detective Relationship Specialty Start Date End Date Janice Fitzpatrick PA [address] [place] [address] PCP - General 12/20/21 documented as of this encounter
--- NOTE | 2025-04-15 15:43 | XR_ITS ---
FINAL REPORT CLINICAL HISTORY: tenderness s/p fall COMPARISON: 05/06/2022 FINDINGS: LEFT HAND Three views were obtained. There is multijoint degenerative disease, most pronounced of the first carpometacarpal joint. There is a comminuted distal radial fracture. Soft tissue edema is identified. The previously seen abnormality of the middle phalanx fourth digit has healed. IMPRESSION: Comminuted distal radial fracture. Reviewed, Interpreted and Dictated by Carmina Dawn MD Transcribed by Humera Marmolejo Authenticated and [facility]
--- NOTE | 2025-04-15 15:43 | XR_ITS ---
FINAL REPORT CLINICAL HISTORY: tenderness s/p fall FINDINGS: LEFT FOREARM Two views were obtained. The proximal portion of the radius and ulna are unremarkable. There is a comminuted fracture of the distal radius which extends to the radiocarpal joint. Diffuse soft tissue edema is identified. IMPRESSION: Comminuted fracture of the distal radius. Reviewed, Interpreted and Dictated by Carmina Dawn MD Transcribed by Humera Marmolejo Authenticated and [facility]
--- NOTE | 2025-04-15 15:43 | XR_ITS ---
FINAL REPORT CLINICAL HISTORY: tenderness s/p fall COMPARISON: 01/18/2022 FINDINGS: LEFT WRIST Three views were obtained. There is a comminuted intra-articular distal radial fracture which is new since prior. Fracture extends to the radiocarpal joint. There is volar displacement of the dominant distal fragment. Diffuse soft tissue edema is identified. IMPRESSION: Comminuted fracture of the distal radius. Reviewed, Interpreted and Dictated by Carmina Dawn MD Transcribed by Humera Marmolejo Authenticated and [facility]
[2025-04-15] MEDS: IBUPROFEN 800 MG TABLET PO (16:07)
[2025-04-15] MEDS: ACETAMINOPHEN 500MG TAB 1000 MG PO (16:07)
--- NOTE | 2025-04-15 17:14 | PC.NURSE ---
at bedside. Nerve block performed.
[2025-04-15] MEDS: LIDOCAINE 1% 10ML MDV 10 ML IM (17:16)
[2025-04-15] MEDS: KETAMINE 50MG/1ML SYRINGE 34.0194 MG IV (17:16)
--- NOTE | 2025-04-15 17:21 | PC.NURSE ---
Called Radiology for a stat portable on a reduction
--- NOTE | 2025-04-15 17:25 | XR_ITS ---
PROCEDURE INFORMATION: Exam: XR Left Wrist Exam date and time: 04/15/2025 5:25 PM Age: 54 years old Clinical indication: Screening exam; Post reduction TECHNIQUE: Imaging protocol: Radiologic exam of the left wrist. Views: 1 or 2 views. COMPARISON: CR XR WRIST LT MIN 3V 04/15/2025 3:42 PM FINDINGS: Bones/joints: Severely comminuted intra-articular Colles fracture distal left radius. Improving alignment status post closed reduction and splinting. Soft tissues: Normal. IMPRESSION: 1. Severely comminuted intra-articular Colles fracture distal left radius. 2. Improving alignment status post closed reduction and splinting.
--- NOTE | 2025-04-15 17:52 | XR_ITS ---
PROCEDURE INFORMATION: Exam: XR Left Wrist Exam date and time: 04/15/2025 5:57 PM Age: 54 years old Clinical indication: Other: Post reduction TECHNIQUE: Imaging protocol: Radiologic exam of the left wrist. Views: 1 or 2 views. COMPARISON: CR XR WRIST LT 2V 04/15/2025 5:25 PM FINDINGS: Bones/joints: Severely comminuted Colles fracture of the distal left radius with intra-articular extension. Hairline fracture of the ulnar styloid nondisplaced. Soft tissues: Normal. IMPRESSION: 1. Severely comminuted Colles fracture of the distal left radius with intra-articular extension. 2. Hairline fracture of the ulnar styloid nondisplaced.
[2025-04-15] MEDS: KETAMINE 50MG/1ML SYRINGE 100 MG IV (18:50)
[2025-04-15] MEDS: LACTATED RINGERS 1000ML 1,000 ML 999 ML IV (18:52)
== END 2025-04-15 19:59 | disposition home or self-care (01) ==
PROVIDERS: Emergency Provider Student in an Organized Health Care Education/Training Program; PCP Physician Assistant
DX: S52.502A Unspecified fracture of the lower end of left radius, initial encounter for closed fracture (principal); S52.612A Displaced fracture of left ulna styloid process, initial encounter for closed fracture; M25.532 Pain in left wrist; E78.5 Hyperlipidemia, unspecified; W01.0XXA Fall on same level from slipping, tripping and stumbling without subsequent striking against object, initial encounter
CPT/HCPCS: 73090; 73100; 73110; 73130; 96365; 96375; 99285; 99291; J2003; J2704; J7120

== ENCOUNTER 2025-04-29 06:58 | Day surgery (SDC) | payer OTHER, SELFPAY ==
--- NOTE | 2025-04-25 10:05 | SUR.PREOP ---
left detailed message on pt's phone. went over arrival time of 0650, the need for a dump truck driver off highway to stay for the duration of the procedure and someone who is able to sign pt out, and NPO after midnight. callback number given in message as well
[2025-04-29] MEDS: TETRACAINE 0.5% OPTH SOL 15ML OP ×3 (07:13→07:14)
[2025-04-29] MEDS: CYCLOPENTOLATE 2% OPHTH SOLN 2ML BOTTLE OP ×3 (07:13→07:14)
[2025-04-29] MEDS: PHENYLEPHRINE 2.5% OPHTH SOLN 2ML OP ×3 (07:13→07:14)
[2025-04-29 07:21] VITALS: BP 111/74; PULSE 82; RESP 18; TEMP 36.4; O2SAT 97; BMI 41.5
[2025-04-29 07:29] LABS: POC Glucose,Bedside 108 gm/dL (70-110)
[2025-04-29 08:15] VITALS: BP 123/64; PULSE 73; RESP 16; O2SAT 100
[2025-04-29] MEDS: TOBRAMYCIN/DEX OPTH SUSP 2.5ML OP (08:17)
[2025-04-29] MEDS: TIMOLOL 0.5% OPTH SOLN 5ML OP (08:18)
[2025-04-29] MEDS: MIDAZOLAM 2MG/2ML VIAL 1 MG IV (08:18)
[2025-04-29] MEDS: LIDOCAINE 1% PF 2ML VIAL 2 ML IJ (08:19)
[2025-04-29 08:20] VITALS: BP 107/57; PULSE 72; RESP 16; O2SAT 100
[2025-04-29] MEDS: SODIUM CHLORIDE 0.9% 10ML FLUSH SYRINGE 10 ML IV (08:20)
[2025-04-29 08:25] VITALS: BP 106/57; PULSE 74; RESP 16; O2SAT 100
[2025-04-29 08:30] VITALS: BP 111/55; PULSE 76; RESP 16; O2SAT 100
[2025-04-29 08:38] VITALS: BP 106/57; PULSE 74; RESP 18; TEMP 36.4; O2SAT 99
--- NOTE | 2025-04-29 12:57 | P.PCN_ITS ---
[facility] Procedure Note Date: 04/29/25 Time: 12:57 Procedure Note:: Preoperative Diagnosis: Cataract combined NS Cortical Complex [Right] Eye Postop diagnosis: same Operation: Microscopic phacoemulsification with intraocular lens implant [Right] Eye Specimen: None Blood Loss: None The patient was examined in the office with a complaint of poor vision in the [right] eye. The patient reports that this interferes with ADLs such as reading, watching TV and/or driving or the vision is like looking through a foggy haze and is very troubling. The patient was examined and found to have a visually significant cataract with best corrected vision of [20/400] by refraction and/or glare testing. Treatment options, risks and benefits were explained and the patient elected to have cataract surgery in an attempt to improve their vision. The patient had the eye anesthetized with topical tetracaine, the eye ways prepped and draped in the usual fashion for cataract surgery. A paracentesis and a temporal keratotomy were made. 0.2cc of 1% lidocaine PF was placed into the anterior chamber. And aqueous/viscoelastic exchange was done and a 360 degree capsulorexis was performed. Through hydrodissection and delineation with BSS on a cannula was done. The lens nucleus was phecoemulsified with CDE of [5.82]. Residual cortical material was removed using automated I&A The capsular bag was deepened with viscoelastica and a PCIOL was placed in the capsular bag with good centration and stability. Residual viscoelastic was removed using automated I&A. The keratotomy incision was hydrated with BSS on a cannula. The wound were checked and found to be water tight. IOP was checked digitally and adjusted as needed so as not to be too high. 1 drop of timolol 0.5%, ofloxacin, prednisolone acetate and ketorolac was instilled and eye shield taped over the eye. The patient was taken to recovery in good condition and will be seen postoperatively.
== END 2025-04-29 08:41 | disposition home or self-care (01) ==
PROVIDERS: PCP Physician Assistant; Visit Provider Ophthalmology
PROC: (CPT 66984; principal; 2025-04-29 08:00)
DX: H25.813 Combined forms of age-related cataract, bilateral (principal); H53.8 Other visual disturbances; E78.00 Pure hypercholesterolemia, unspecified; E03.9 Hypothyroidism, unspecified; F41.9 Anxiety disorder, unspecified; M19.90 Unspecified osteoarthritis, unspecified site; J45.909 Unspecified asthma, uncomplicated; I11.9 Hypertensive heart disease without heart failure; I48.91 Unspecified atrial fibrillation; K21.9 Gastro-esophageal reflux disease without esophagitis; Z88.2 Allergy status to sulfonamides; Z88.1 Allergy status to other antibiotic agents; Z79.890 Hormone replacement therapy; Z79.899 Other long term (current) drug therapy
CPT/HCPCS: 66984; 82962; J2250; V2632

== ENCOUNTER 2025-05-08 13:04 | Outpatient (CLI) | payer OTHER, SELFPAY ==
--- NOTE | 2025-05-08 13:04 | XR_ITS ---
FINAL REPORT CLINICAL HISTORY: left wrist fx COMPARISON: 04/15/2025 FINDINGS: LEFT WRIST THREE VIEW FINDINGS: Three views show a severely comminuted distal radius fracture extending into the radial joint. There is significant impaction again noted. Bony detail is obscured by the plaster cast. The joint spaces appear normal. IMPRESSION: Relatively stable appearance of distal radius fracture. Reviewed, Interpreted and Dictated by Kassi Brock MD Transcribed by Cindy Lang Authenticated and [facility]
--- OUTSIDE RECORDS SUMMARY | 2025-05-08 13:09 | XMS_ITS | Encounter Summary ---
Author Organization [facility] Address [address] [place] [address] Care Team Providers Care Floral Associate Name Role Phone Marko Norton MD Primary Care Provider [phone] Janice Fitzpatrick Primary Care Provider [phone] Encounter Details Date Type Department Care Team ([facility] st Contact Info) Description 12/17/2021 Orders Only External Location [address] [place] [address] Provider, External Social History Tobacco Use Types [...] documented as of this encounter Care Teams Floral Associate Relationship Specialty Start Date End Date Marko Norton MD [address] [place] [address] PCP - General 01/01/21 12/19/21 Janice Fitzpatrick PA [address] [place] [address] PCP - General 12/20/21 documented as of this encounter
--- OUTSIDE RECORDS SUMMARY | 2025-05-08 13:09 | XMS_ITS | Clinical Summary ---
Author Organization [facility] Address [address] [place] [address] Care Team Providers Care Environmental Science Instructor Name Role Phone Janice Fitzpatrick Primary Care Provider Allergies Active Allergy Reactions Criticality Noted Date [...] to sleep or slept in a senior care (including now)? No 01/17/2024 CAGE ASSESSMENT Answer [...] drink first t nelli in the morning (EYE-ROUTE SALESPERSON) to steady your nerves or to get [...] [facility]-DTaP,Tdap,and Td Vaccines (1 - Tdap) 11/19/1987 [facility]-Pap Smear 1989 [facility]-Cervical Cancer Screening 1998 [facility]-HPV/Cotest 1998 CT Colonography 2013 Colonoscopy 2013 FIT-DNA 2013 FIT 2013 FOBT 2013 Sigmoidoscopy 2013 [facility]-Colorectal Cancer Screening 2013 [facility]-Breast Cancer Screening 2018 [facility]-Pneumococcal Vaccine: 50+ Years (1 of 1 - PCV) 2018 [facility]-Zoster Vaccines (1 of 2) 2018 [facility]-Depression Screening 03/28/2023 03/28/2022 [facility]-Hepatitis B Vaccines (3 of 3 - Hep B Twinrix 3-dose series) 09/24/2024 04/24/2024, 01/25/2024 [id number] Vaccine ( - season) 2025 03/28/2022, 09/08/2021, 08/11/2021 [facility]-Influenza Vaccine (#1) 2025 [facility]-Diabetes: Hemoglobin A1C [...] ORDERABLES Final R esult Performing Organization Address City/[facility] Co de Phone Number [facility] [address] [place] [address] * Hepatitis C Antibody (01/23/2024 10:51 AM EDT) Hepatitis C Antibody Negative Negative 01/23/2024 11:25 AM EDT [facility] Blood Venous blood specimen / Unknown Venipuncture / Unknown 01/23/2024 10:51 AM EDT 01/23/2024 10:57 AM EDT us Sary Dawson MD LAB BLOOD ORDERABLES Final R esult Performing Organization Address City/[facility]/ZIP Co de Phone Number [facility] [address] [place] [address] * (ABNORMAL) Hemoglobin A1c (01/17/2024 4:06 AM [...] Adults <6.0% Children and Adolescents <7.5% Source: [place] [employer]. Standards of medical care in diabetes,2017. Diabetes Care.2017:40 (suppl 1):S1-S135. HbA1c assay performed by an ion-exchange chromatography method that is certified traceable to the DCCT. Marc Weinberg MD LAB BLOOD ORDERABLES Final Result [facility] [address] [place] [address] from Last 3 Months or Most Recently Relevant to Health Maintenance Insurance [address] [place] [id number] AETNA [facility] MEDICAID Advance Directives * Full Code [...] Patient has decision-making capacity? Yes Care Teams Environmental Science Instructor Relationship Specialty Start Date End Date Janice Fitzpatrick PA [address] [place] [address] PCP - General 12/20/21
--- OUTSIDE RECORDS SUMMARY | 2025-05-08 13:09 | XMS_ITS | Clinical Summary ---
Author Organization [facility] Address [address] [place] [address] Care Team Providers Care Regulatory Affairs Manager Name Role Phone Janice Fitzpatrick Primary Care Provider [phone] Allergies Active Allergy Reactions Criticality Noted Date [...] 3 Active vitamin D (ERGOCALCIFEROL) 1.25 MG (35020 UT) capsule capsule 3 Active buprenorphine-na loxone [...] Date Last Done Comments Annual Gynecologic Pelvic and Breast Exam 1968 LIPID PANEL 1968 Pneumococcal Vaccine 50+ (1 of 2 - PCV) 11/19/1987 TDAP/TD VACCINES (1 - Tdap) 11/19/1987 PAP SMEAR 1989 COLOGUARD 2013 COLON CANCER SCREENING 5 YEAR SIGMOIDOSCOPY 2013 COLONOSCOPY [address] CANCER SCREENING [address] COLONOGRAPHY 2013 FECAL OCCULT BLOOD TEST 2013 FIT Testing (1 year) 2013 MAMMOGRAM 11/22/2013 11/23/2011 ZOSTER VACCINE (1 of 2) 2018 ANNUAL PHYSICAL 12/02/2022 HEPATITIS C SCREENING 12/02/2022 INFLUENZA VACCINE 03/21/2025 Insurance [facility] [employer] [facility] Care Teams Regulatory Affairs Manager Relationship Specialty Start Date End Date Janice Fitzpatrick PA PCP - General Physician Design Intern 12/02/22
--- OUTSIDE RECORDS SUMMARY | 2025-05-08 13:09 | XMS_ITS | Encounter Summary ---
Author Organization [facility] Address [address] [place] [address] Care Team Providers Care Solar Development Engineer Name Role Phone Janice Fitzpatrick Primary Care Provider Encounter Details Date Type Department Care Team ([facility] st Contact Info) Description 12/31/2021 Community [facility] Community Practice [address] [place] [address] Janice Fitzpatrick PA [address] [place] [address] Aneurysm of splenic artery (CMS/HCC) [...] documented as of this encounter Care Teams Solar Development Engineer Relationship Specialty Start Date End Date Janice Fitzpatrick PA [address] [place] [address] PCP - General 12/20/21 documented as of this encounter
--- OUTSIDE RECORDS SUMMARY | 2025-05-08 13:09 | XMS_ITS | Encounter Summary ---
Author Organization [facility] Address [address] [place] [address] Care Team Providers Care Payment Specialist Name Role Phone Janice Fitzpatrick Primary Care Provider [phone] Reason for Referral * Consultation (Routine) - Closed Specialty Diagnoses / Procedures Referred By Jaylin jimenez Referred To Contact Vascular Surgery Diagnoses Hepatic artery aneurysm (CMS/HCC) Janice Fitzpatrick PA [address] [place] [address] Phone: tel: fax: Vascular Surgery [address] [place] [address] Phone: tel: Referral ID Status Reason Start Date Expiration Date V isits Requested Visits Authorized [id number] Closed Specialty Services Required 01/26/2022 07/28/2023 1 1 Encounter Details Date Type Department Care Team (Late st Contact Info) Description 01/26/2022 Community Orders Community Practice [address] [place] [address] Janice Fitzpatrick PA [address] [place] [address] Hepatic artery aneurysm (CMS/HCC) (Primary [...] documented as of this encounter Care Teams Payment Specialist Relationship Specialty Start Date End Date Janice Fitzpatrick PA [address] [place] [address] PCP - General 12/20/21 documented as of this encounter
== END 2025-05-08 23:59 | disposition home or self-care (01) ==
LOC: RAD 13:04
PROVIDERS: Visit Provider Physician Assistant Surgical
DX: S52.572A Other intraarticular fracture of lower end of left radius, initial encounter for closed fracture (principal)
CPT/HCPCS: 73110

== ENCOUNTER 2025-05-13 06:35 | Day surgery (SDC) | payer OTHER, SELFPAY ==
[2025-05-06 12:14] VITALS: BMI 42.5
[2025-05-13] VITALS (7 sets, daily range): BP systolic 102–129; BP diastolic 53–68; PULSE 74–79; RESP 16–18; TEMP 36.1–36.5; O2SAT 95–100; BMI 42.5
[2025-05-13] MEDS: TETRACAINE 0.5% OPTH SOL 15ML OP ×3 (07:10→07:20)
[2025-05-13] MEDS: PHENYLEPHRINE 2.5% OPHTH SOLN 2ML OP ×3 (07:10→07:20)
[2025-05-13] MEDS: CYCLOPENTOLATE 2% OPHTH SOLN 2ML BOTTLE OP ×3 (07:10→07:20)
[2025-05-13 07:21] LABS: POC Glucose,Bedside 96 gm/dL (70-110)
[2025-05-13] MEDS: MIDAZOLAM 2MG/2ML VIAL 1 MG IV (08:22)
[2025-05-13] MEDS: TOBRAMYCIN/DEX OPTH SUSP 2.5ML OP (08:25)
[2025-05-13] MEDS: TIMOLOL 0.5% OPTH SOLN 5ML OP (08:25)
[2025-05-13] MEDS: LIDOCAINE 1% PF 2ML VIAL 2 ML IJ (08:26)
--- NOTE | 2025-05-13 11:46 | HMH.PROCNOTE ---
[facility] Procedure Note Date: 05/13/25 Time: 11:46 Procedure Note:: Preoperative Diagnosis: Cataract combined NS Cortical Complex [Right] Eye Postop diagnosis: same Operation: Microscopic phacoemulsification with intraocular lens implant [Right] Eye Specimen: None Blood Loss: None The patient was examined in the office with a complaint of poor vision in the [right] eye. The patient reports that this interferes with ADLs such as reading, watching TV and/or driving or the vision is like looking through a foggy haze and is very troubling. The patient was examined and found to have a visually significant cataract with best corrected vision of [20/400] by refraction and/or glare testing. Treatment options, risks and benefits were explained and the patient elected to have cataract surgery in an attempt to improve their vision. The patient had the eye anesthetized with topical tetracaine, the eye ways prepped and draped in the usual fashion for cataract surgery. A paracentesis and a temporal keratotomy were made. 0.2cc of 1% lidocaine PF was placed into the anterior chamber. And aqueous/viscoelastic exchange was done and a 360 degree capsulorexis was performed. Through hydrodissection and delineation with BSS on a cannula was done. The lens nucleus was phecoemulsified with CDE of [5.83]. Residual cortical material was removed using automated I&A The capsular bag was deepened with viscoelastica and a PCIOL was placed in the capsular bag with good centration and stability. Residual viscoelastic was removed using automated I&A. The keratotomy incision was hydrated with BSS on a cannula. The wound were checked and found to be water tight. IOP was checked digitally and adjusted as needed so as not to be too high. 1 drop of timolol 0.5%, ofloxacin, prednisolone acetate and ketorolac was instilled and eye shield taped over the eye. The patient was taken to recovery in good condition and will be seen postoperatively.
== END 2025-05-13 09:00 | disposition home or self-care (01) ==
PROVIDERS: PCP Physician Assistant; Visit Provider Ophthalmology
PROC: (CPT 66984; principal; 2025-05-13 08:00)
DX: H25.811 Combined forms of age-related cataract, right eye (principal); H53.149 Visual discomfort, unspecified; E78.00 Pure hypercholesterolemia, unspecified; E03.9 Hypothyroidism, unspecified; F41.9 Anxiety disorder, unspecified; I25.10 Atherosclerotic heart disease of native coronary artery without angina pectoris; F32.A Depression, unspecified; K21.9 Gastro-esophageal reflux disease without esophagitis; I11.0 Hypertensive heart disease with heart failure; I50.32 Chronic diastolic (congestive) heart failure; I73.9 Peripheral vascular disease, unspecified; G47.00 Insomnia, unspecified; Z95.5 Presence of coronary angioplasty implant and graft; Z88.0 Allergy status to penicillin; Z88.1 Allergy status to other antibiotic agents; Z79.890 Hormone replacement therapy; Z79.899 Other long term (current) drug therapy
CPT/HCPCS: 66984; 82962; J2250; V2632

== ENCOUNTER 2025-05-22 10:10 | Outpatient (CLI) | payer OTHER, SELFPAY ==
--- NOTE | 2025-05-22 10:10 | XR_ITS ---
FINAL REPORT CLINICAL HISTORY: left wrist fx COMPARISON: 05/08/2025 FINDINGS: LEFT WRIST Three views again demonstrate an impacted displaced distal radial metaphysis fracture. The distal fragment is inferiorly displaced. There is progressive callus formation consistent with healing. There is no positive ulnar variance measuring 5 mm. The soft tissues are unremarkable. IMPRESSION: Stable position impacted displaced fracture with progressive healing. Reviewed, Interpreted and Dictated by Eligio Underwood MD Transcribed by Cindy Lang Authenticated and [facility]
--- OUTSIDE RECORDS SUMMARY | 2025-05-22 10:14 | XMS_ITS | Encounter Summary ---
Author Organization [facility] Address [address] [place] [address] Care Team Providers Care Materials Tech Name Role Phone Marko Norton MD Primary Care Provider [phone] Janice Fitzpatrick Primary Care Provider [phone] Encounter Details Date Type Department Care Team ([facility] st Contact Info) Description 12/17/2021 Orders Only External Location [address] [place] [address] Provider, External Social History Tobacco Use Types [...] documented as of this encounter Care Teams Materials Tech Relationship Specialty Start Date End Date Marko Norton MD [address] [place] [address] PCP - General 01/01/21 12/19/21 Janice Fitzpatrick PA [address] [place] [address] PCP - General 12/20/21 documented as of this encounter
--- OUTSIDE RECORDS SUMMARY | 2025-05-22 10:14 | XMS_ITS | Encounter Summary ---
Author Organization [facility] Address [address] [place] [address] Care Team Providers Care Program Mgr Name Role Phone Janice Fitzpatrick Primary Care Provider [phone] Reason for Referral * Consultation (Routine) - Closed Specialty Diagnoses / Procedures Referred By Jaylin jimenez Referred To Contact Vascular Surgery Diagnoses Hepatic artery aneurysm Janice Fitzpatrick PA [address] [place] [address] Phone: tel: fax: Vascular Surgery [address] [place] [address] Phone: tel: Referral ID Status Reason Start Date Expiration Date V isits Requested Visits Authorized [id number] Closed Specialty Services Required 01/26/2022 07/28/2023 1 1 Encounter Details Date Type Department Care Team (Late st Contact Info) Description 01/26/2022 Community Orders Community Practice [address] [place] [address] Janice Fitzpatrick PA [address] [place] [address] Hepatic artery aneurysm (CMS/HCC) (Primary [...] this encounter Visit Diagnoses Diagnosis Hepatic artery aneurysm- Primary Aneurysm of other visceral artery documented in this encounter Additional Health Concerns Infection Onset Date Last Indicated Resolved Time Respiratory Rule-Out 04/25/2024 04/25/2024 024 2:39 PM EDT documented as of this encounter Care Teams Program Mgr Relationship Specialty Start Date End Date Janice Fitzpatrick PA [address] [place] [address] PCP - General 12/20/21 documented as of this encounter
--- OUTSIDE RECORDS SUMMARY | 2025-05-22 10:14 | XMS_ITS | Encounter Summary ---
Author Organization [facility] Address [address] [place] [address] Care Team Providers Care Glass Lathe Operator Name Role Phone Janice Fitzpatrick Primary Care Provider [phone] Encounter Details Date Type Department Care Team ([facility] st Contact Info) Description 12/31/2021 Community [facility] Community Practice [address] [place] [address] Janice Fitzpatrick PA [address] [place], [place] [id number] Aneurysm of splenic artery (CMS/HCC) (Primary Dx) [...] encounter Visit Diagnoses Diagnosis Aneurysm of splenic artery- Primary documented in this encounter Additional Health Concerns Infection Onset Date Last Indicated Resolved Time Respiratory Rule-Out 04/25/2024 04/25/2024 024 2:39 PM EDT documented as of this encounter Care Teams Glass Lathe Operator Relationship Specialty Start Date End Date Janice Fitzpatrick PA [address] [place] [address] PCP - General 12/20/21 documented as of this encounter
--- OUTSIDE RECORDS SUMMARY | 2025-05-22 10:14 | XMS_ITS | Clinical Summary ---
Author Organization [facility] Address [address] [place] [address] Care Team Providers Care Cribbing Setter Name Role Phone aJnice Fitzpatrick Primary Care Provider [phone] Allergies Active Allergy Reactions Criticality Noted Date [...] Do not crush or chew. Active medroxyPROGESTE Jaoo (Provera) 2.5 MG tablet Take 1 tablet [...] (BMI) of 40.0 or higher 04/26/2024 Cellulitis of left hand 01/17/2024 Endometrial hyperplasia 01/16/2024 Severe obesity (BMI 35.0-39.9) with comorbidity 03/28/2022 Hyperlipidemia 03/28/2022 HTN (hypertension) 03/28/2022 Hypothyroidism 03/28/2022 CAD S/P percutaneous coronary angioplasty 2021 Myocardial infarction greater than 8 weeks ago 0 03/28/2022 H/O opioid abuse 03/28/2022 CHF (congestive heart failure) 03/28/2022 Resolved Problems Problem Noted Date Diagnosed Date Resolved Date Cellulitis 04/21/2024 05/11/2025 Encounters Date Type Department Care Team Description [...] place to sleep or slept in a snf (including now)? No 01/17/2024 CAGE ASSESSMENT Answer [...] drink first t nelli in the morning (EYE-GAS INSPECTOR) to steady your nerves or to get [...] Health Maintenance Due Date Last Done Comments [facility]-Infant/Child/Adol SDOH Screenings 1968 [facility]- SDOH Screenings 1986 [...] B Twinrix 3-dose series) 09/24/2024 04/24/2024, 01/25/2024 [id number] Vaccine (4 - season) 2025 03/28/2022, 09/08/2021, 08/11/2021 [facility]-Influenza [...] Non Reactive 01/23/2024 11:29 AM EDT [facility] Comment:Screening for HIV 1 & 2 antibodies, and P24 antigen is NONREACTIVE. No confirmatory testing is required. Blood Venous blood specimen / Unknown Venipuncture / Unknown 01/23/2024 10:51 AM EDT 01/23/2024 10:57 AM EDT aSry Dawson MD LAB BLOOD ORDERABLES Final R esult Performing Organization Address City/[facility]/ZIP Co de Phone Number [facility] [address] [place] [id number] * Hepatitis C Antibody (01/23/2024 10:51 AM EDT) Hepatitis C Antibody Negative Negative 01/23/2024 11:[address] [facility] Blood Venous blood specimen / Unknown Venipuncture / Unknown 01/23/2024 10:51 AM EDT 01/23/2024 10:57 AM EDT Sary Dawson MD LAB BLOOD ORDERABLES Final R esult [facility] [address] [place] [address] * (ABNORMAL) Hemoglobin A1c (01/17/2024 4:06 AM [...] Adults <6.0% Children and Adolescents <7.5% Source: [place] [employer]. Standards of medical care in diabetes,2017. Diabetes Care.2017:40 (suppl 1):S1-S135. HbA1c assay performed by an ion-exchange chromatography method that is certified traceable to the DCCT. Marc Weinberg MD LAB BLOOD ORDERABLES Final Result Performing Organization Address [facility] de Phone Number [facility] [address] [place] [address] from Last 3 Months or Most Recently Relevant to Health Maintenance Insurance [address] [facility] [address] [place] [id number] AETNA [facility] MEDICAID Advance Directives * Full Code [...] Patient has decision-making capacity? Yes Care Teams Cribbing Setter Relationship Specialty Start Date End Date Janice Fitzpatrick PA [address] [place] [address] PCP - General 12/20/21
--- OUTSIDE RECORDS SUMMARY | 2025-05-22 10:15 | XMS_ITS | Clinical Summary ---
Author Organization [facility] Address [address] [place] [address] Care Team Providers Care Optometry Doctor Name Role Phone Janice Fitzpatrick Primary Care [...] 3 Active vitamin D (ERGOCALCIFEROL) 1.25 MG (91534 UT) capsule capsule 3 Active buprenorphine-na loxone [...] C SCREENING 12/02/2022 INFLUENZA VACCINE 03/21/2025 Insurance [facility] Care Teams Optometry Doctor Relationship Specialty Start Date End Date Janice Fitzpatrick PA PCP - General Physician Legal Editor 12/02/22
== END 2025-05-22 23:59 | disposition home or self-care (01) ==
LOC: RAD 10:10
PROVIDERS: Visit Provider Physician Assistant Surgical
DX: S52.592D Other fractures of lower end of left radius, subsequent encounter for closed fracture with routine healing (principal); S52.612D Displaced fracture of left ulna styloid process, subsequent encounter for closed fracture with routine healing
CPT/HCPCS: 73110

== ENCOUNTER 2025-06-12 12:49 | Outpatient (RCR) | payer OTHER, SELFPAY | END 2025-06-12 23:59 | disposition home or self-care (01) | LOC: OT 12:49 | PROVIDERS: PCP Physician Assistant; Visit Provider Physician Assistant Surgical | DX: S52.509A Unspecified fracture of the lower end of unspecified radius, initial encounter for closed fracture (principal) | CPT/HCPCS: 97166 ==

== ENCOUNTER 2025-06-25 09:23 | Outpatient (CLI) | payer OTHER, SELFPAY ==
--- OUTSIDE RECORDS SUMMARY | 2025-06-25 09:26 | XMS_ITS | Encounter Summary ---
Author Organization [facility] Address [address] [place] [address] Care Team Providers Care Inserter Name Role Phone Janice Fitzpatrick Primary Care Provider [phone] Reason for Referral * Consultation (Routine) - Closed Specialty Diagnoses / Procedures Referred By Jaylin jimenez Referred To Contact Vascular Surgery Diagnoses Hepatic artery aneurysm Janice Fitzpatrick PA [address] [place] [address] Phone: tel: fax: Vascular Surgery [address] [place] [address] Phone: tel: Referral ID Status Reason Start Date Expiration Date V isits Requested Visits Authorized [id number] Closed Specialty Services Required 01/26/2022 07/28/2023 1 1 Encounter Details Date Type Department Care Team (Late st Contact Info) Description 01/26/2022 Community Orders Community Practice [address] [place] [address] Janice Fitzpatrick PA [address] [place] [address] Hepatic artery aneurysm (CMS/HCC) (Primary [...] documented as of this encounter Care Teams Inserter Relationship Specialty Start Date End Date Janice Fitzpatrick PA [address] [place] [address] PCP - General 12/20/21 documented as of this encounter
--- OUTSIDE RECORDS SUMMARY | 2025-06-25 09:26 | XMS_ITS | Clinical Summary ---
Author Organization [facility] Address [address] [place] [address] Care Team Providers Care Leader Assembler Name Role Phone Janice Fitzpatrick Primary Care [...] Diagnosed Date Resolved Date Cellulitis 04/21/2024 05/11/2025 Immunizations Immunization Administration Dates Next Due Hep [...] place to sleep or slept in a detention (including now)? 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 No confirmatory testing is required. Blood Venous blood specimen / Unknown Venipuncture / Unknown 01/23/2024 10:51 AM EDT 01/23/2024 10:57 AM EDT Sary Dawson MD LAB BLOOD ORDERABLES Final R esult Performing Organization Address City/[facility] Co de Phone Number [facility] [address] [place] [address] * Hepatitis C Antibody (01/23/2024 10:51 AM EDT) Hepatitis C Antibody Negative Negative 01/23/2024 11:25 AM EDT [facility] Blood Venous blood specimen / Unknown Venipuncture / Unknown 01/23/2024 10:51 AM EDT 01/23/2024 10:57 AM EDT us Sary Dawson MD LAB BLOOD ORDERABLES Final R esult Performing Organization Address City/[facility]/ZIP Co de Phone Number [facility] [address] [place] [address] * (ABNORMAL) Hemoglobin A1c (01/17/2024 4:06 AM [...] Adults <6.0% Children and Adolescents <7.5% Source: [place] [employer]. Standards of medical care in diabetes,2017. Diabetes Care.2017:40 (suppl 1):S1-S135. HbA1c assay performed by an ion-exchange chromatography method that is certified traceable to the DCCT. us Marc Weinberg MD LAB BLOOD ORDERABLES Final Result [facility] [address] [place] [address] from Last 3 Months or Most Recently Relevant to Health Maintenance Insurance [employer] [facility] MEDICAID Advance Directives * Full Code [...] Patient has decision-making capacity? Yes Care Teams Leader Assembler Relationship Specialty Start Date End Date Janice Fitzpatrick PA [address] [place] [address] PCP - General 12/20/21
--- OUTSIDE RECORDS SUMMARY | 2025-06-25 09:26 | XMS_ITS | Encounter Summary ---
Author Organization [facility] Address [address] [place] [address] Care Team Providers Care Fire Protection Engineering Technician Name Role Phone Janice Fitzpatrick Primary Care Provider [phone] Encounter Details Date Type Department Care Team ([facility] st Contact Info) Description 12/31/2021 Community [facility] Community Practice [address] [place] [address] Janice Fitzpatrick PA [address] [place], [place] [id number] Aneurysm of splenic artery (CMS/HCC) (Primary Dx) [...] documented as of this encounter Care Teams Fire Protection Engineering Technician Relationship Specialty Start Date End Date Janice Fitzpatrick PA [address] [place] [address] PCP - General 12/20/21 documented as of this encounter
--- OUTSIDE RECORDS SUMMARY | 2025-06-25 09:26 | XMS_ITS | Encounter Summary ---
Author Organization [facility] Address [address] [place] [address] Care Team Providers Care Manager Secondary Name Role Phone Marko Norton MD Primary Care Provider [phone] Janice Fitzpatrick Primary Care Provider [phone] Encounter Details Date Type Department Care Team ([facility] st Contact Info) Description 12/17/2021 Orders Only External Location [address] [place] [address] Provider, External Social History Tobacco Use Types [...] documented as of this encounter Care Teams Manager Secondary Relationship Specialty Start Date End Date Marko Norton MD [address] [place] [address] PCP - General 01/01/21 12/19/21 Janice Fitzpatrick PA [address] [place] [address] PCP - General 12/20/21 documented as of this encounter
--- OUTSIDE RECORDS SUMMARY | 2025-06-25 09:26 | XMS_ITS | Data Portability ---
Author Organization [employer] [facility] - [facility] Address [address] [place] [address] Assessment No assessment recorded. Plan of Treatment Reminders Order Date Submit Date Provider Last Modified By Organization Details Last Modified Time Details Appointments None recorded. Lab lipid panel, serum 2024 025 [facility]ETH [facility] [address] [place], [address], 5 09:11:41 CMP, serum or plasma 2024 025 PRANEETH [facility]), [address] [place], [address], 5 09:11:41 CBC w/ auto diff 2024 025 [place] [facility]), [address] [place], [address], 5 09:11:40 vitamin D, 25-hydroxy, total, serum 2024 025 [facility]ANEETH [facility] [address] [place], [address], 5 09:11:42 TSH, ultra-sensi tive, serum 2024 025 [facility]ANEETH [facility] [address] [place], [address], 5 09:11:42 CBC w/ auto diff [email or web address] [place] [address] (Lab Registration) , [address] , [place], [address], 5 13:14:37 BMP, serum or plasma [address] (Lab Registration) , [address] [place], [address], 5 13:14:37 BMP, serum or plasma 2024 025 [place] [facility]), [address] [facility], [place], [address], 5 12:08:08 rapid flu (A+B) 2023 024 [facility], [address] [facility], [place], [address], 4 16:19:25 rapid SARS CoV 2 Ag, QL, IA, upper respiratory specimen 2023 024 [facility], [address] [facility], [place], [address], 4 16:19:14 Referral neurologist referral 2024 025 [email or web address] Duong MD, [address], [place], [address], 5 10:45:44 cardiologis t referral 2024 025 [facility], [address], [place], [address], 5 15:26:43 Procedures colonoscopy screening (PROC) 2024 025 [id number] Karlos Draper MD, [address], [place], [address], 5 15:52:41 electrocard iogram, routine ECG, 12 leads min; interpretat ion and report (PROC) 2024 025 [facility], [address] [place], [address], 5 11:45:27 stress echocardiog treva (PROC) [address] (Scheduling), [address], [place], [address], 5 12:24:47 colonoscopy screening (PROC) [address] [place] [address] Karlos Draper MD, [address], [place], [address], 11:27:50 Surgeries None recorded. Imaging CT, head + brain, w/o contrast [address] [place] [address] Centralized Scheduling, [address] [place], [address], 13:27:13 MAMMO, screening, digital, bilateral [address] [place] [address] Centralized Scheduling, [address] [place], [address], 14:38:18 DEXA [address] [place] [address] (X-Ray), [address], [place], [place], [address], 5 14:36:19 XR, lumbar spine - fall, LBP, left hip pain s/p right hip replacement [address] (Scheduling), [address], [place], [address], 17:43:44 XR, hip + pelvis, bilateral - fall, lbp, hip pain, s/p right hip replacement 2024 025 [facility] (Scheduling), [address], [place], [address], 5 17:12:02 MAMMO, screening, bilateral - first available appt [email or web address] [place] [address] (Scheduling), [address], [place], [address], 4 11:56:00 Medication Orders Zithromax Z-Russel 250 mg tablet 2023 025 [facility], [address] [place] [address] [place], [id number], 5 10:30:20 prednisone 20 mg tablet 2023 025 [facility], [address] [place] [address], [place], [id number], 5 10:30:00 albuterol sulfate HFA 90 mcg/actuati on aerosol inhaler 2023 024 [facility], [address] [place] [address] E[place], [place], [id number], 4 15:21:02 torsemide 100 mg tablet [email or web address] [facility] [address] [facility], [address] [place] [address], [place], [id number], 5 11:18:34 diclofenac 1 % topical gel 2023 024 [facility], [address] [place] [address] Elsy[place], [place], [id number], 4 15:20:50 Entresto 24 mg-26 mg tablet 2023 024 PRANEETH [facility], [address] [place], [id number], 13:46:17 Patient TargetsNo targets recorded. Patient Instructions Encounter Date Encounter Id Patient Instructions Last Modified By Organization Details Last Modified Time 06/14/2024 [id number] mammogram: about this test [email or web address] Not available 06/14/2024 11:23:37 08/12/2024 [id number] cough: care instructions [email or web address] Not available 08/12/2024 15:06:27 bronchitis: care instructions [email or web address] Not available 08/12/2024 15:19:12 heart failure: care instructions Not available 08/12/2024 15:19:12 learning about heart failure Not available 08/12/2024 15:19:13 09/16/2024 [id number] heart failure: care instructions [email or web address] Not available 09/16/2024 15:45:25 learning about heart failure [email or web address] Not available 09/16/2024 15:45:25 10/08/2024 [id number] low blood pressure: care instructions Not available 10/08/2024 09:05:46 heart murmur: care instructions Not available 10/08/2024 09:05:46 05/06/2025 [id number] mammogram: about this test Not available 05/06/2025 11:35:54 body mass index: care instructions Not available 05/06/2025 11:35:54 learning about healthy weight [email or web address] Not available 05/06/2025 11:35:54 low blood pressure: care instructions [email or web address] Not available 05/06/2025 11:38:46 Reason for Referral Neurologist Referral for Amn esia Referring Physician: [facility], Encounter Date: 05/06/2025 Research Quality Assurance Specialist Referral for Ve rtigo Referring Physician: [facility], Encounter Date: 05/06/2025 Results Created Date Observation Date Name Description Value Unit Range Abnormal Flag Note LastModifiedBy Organization Detail LastModifiedTime 08/12/20 24 08/12/2024 rapid SARS CoV 2 Ag, QL, IA, upper respi rator y speci men SARS CoV Ag negati ve Not Available [facility] [address] [place] [address], [place], [address], 08/12/2024 15:05:57 08/12/20 24 08/12/2024 rapid flu (A+B) Flu A negati ve Not Available [facility] [address] [place] [address], [place], [address], 08/12/2024 15:05:53 08/12/20 24 08/12/2024 rapid flu (A+B) Flu B negati ve Not Available [facility] [address] [facility], [place], [address], 08/12/2024 15:05:53 09/16/19 25 09/17/2024 BASIC METAB OLIC PANEL (8) glucose COMMEN T mg/dL Test not perfo rmed. Serum was in conta ct with cells when recei asha which will make the resul t inacc urate . Not Available [facility] [address] [facility], [place], [address], 09/17/2024 12:08:08 09/16/19 25 09/17/2024 BASIC METAB OLIC PANEL (8) BUN 34 mg/dL 6-24 above high normal Not Available [facility] [address] [facility], [place], [address], 09/17/2024 12:08:08 09/16/19 25 09/17/2024 BASIC METAB OLIC PANEL (8) creatinine 2.45 mg/dL 0.57-1 .00 above high normal Not Available [facility] [address] [facility], [place], [address], 09/17/2024 12:08:08 09/16/19 25 09/17/2024 BASIC METAB OLIC PANEL (8) eGFR 23 mL/mi n/1.7 3 >59 below low normal Not Available [facility] [address] [facility], [place], [address], 09/17/2024 12:08:08 09/16/19 25 09/17/2024 BASIC METAB OLIC PANEL (8) BUN/creatini ne ratio 14 9-23 normal Not Available [facility] [address] [facility], [place], [address], 09/17/2024 12:08:08 09/16/1909/17/2024 BASIC METAB OLIC PANEL (8) sodium 138 mmol/ L 134-14 4 normal Not Available [facility] [address] [facility], [place], [address], 09/17/2024 12:08:08 09/16/1909/17/2024 BASIC METAB OLIC PANEL (8) potassium COMMEN T mmol/ L Test not perfo rmed. Serum was in conta ct with cells when recei asha which will make the resul t inacc urate . Not Available [facility] [address] [facility], [place], [address], 09/17/2024 12:08:08 09/16/1909/17/2024 BASIC METAB OLIC PANEL (8) chloride 92 mmol/ L 96-106 below low normal Not Available [facility] [address] [place], [address], 09/17/2024 12:08:08 09/16/19 25 09/17/2024 BASIC METAB OLIC PANEL (8) carbon dioxide, total 21 mmol/ L 20-29 normal Not Available [facility] [address] [place], [address], 09/17/2024 12:08:08 09/16/19 25 09/17/2024 BASIC METAB OLIC PANEL (8) calcium 9.4 mg/dL 8.7-10 .2 normal Not Available [facility] [address] [place], [address], 09/17/2024 12:08:08 05/06/20 25 05/07/2025 CBC WITH DIFFE RENTI AL/PL ATELE T WBC 5.0 x10e3 /uL 3.4-10 .8 normal Not Available [facility] [address] [facility], [place], [address], 05/07/2025 09:11:40 05/06/2005/07/2025 CBC WITH DIFFE RENTI AL/PL ATELE T RBC 2.99 x10e6 /uL 3.77-5 .28 below low normal Not Available [facility] [address] [facility], [place], [address], 05/07/2025 09:11:40 05/06/20 25 05/07/2025 CBC WITH DIFFE RENTI AL/PL ATELE T hemoglobin 9.4 g/dL 11.1-1 5.9 below low normal Not Available [facility] [address] [place], [address], 05/07/2025 09:11:40 05/06/20 25 05/07/2025 CBC WITH DIFFE RENTI AL/PL ATELE T hematocrit 29.9 % 34.0-4 6.6 below low normal Not Available [facility] [address] [place], [address], 05/07/2025 09:11:40 05/06/20 25 05/07/2025 CBC WITH DIFFE RENTI AL/PL ATELE T MCV 100 fL 79-97 above high normal Not Available [facility] [address] [place], [address], 05/07/2025 09:11:40 05/06/20 25 05/07/2025 CBC WITH DIFFE RENTI AL/PL ATELE T MCH 31.4 pg 26.6-3 3.0 normal Not Available [facility] [address] [facility], [place], [address], 05/07/2025 09:11:40 05/06/20 25 05/07/2025 CBC WITH DIFFE RENTI AL/PL ATELE T MCHC 31.4 g/dL 31.5-3 5.7 below low normal Not Available [facility] [address] [facility], [place], [address], 05/07/2025 09:11:40 05/06/20 25 05/07/2025 CBC WITH DIFFE RENTI AL/PL ATELE T RDW 13.9 % 11.7-1 5.4 Not Available [facility] [address] [facility], [place], [address], 05/07/2025 09:11:40 05/06/20 25 05/07/2025 CBC WITH DIFFE RENTI AL/PL ATELE T platelets 313 x10e3 /uL 150-45 0 normal Not Available [facility] [address] [facility], [place], [address], 05/07/2025 09:11:40 05/06/2005/07/2025 CBC WITH DIFFE RENTI AL/PL ATELE T neutrophils 68 % not estab. normal Not Available [facility] [address] [facility], [place], [address], 05/07/2025 09:11:40 05/06/20 25 05/07/2025 CBC WITH DIFFE RENTI AL/PL ATELE T lymphs 18 % not estab. normal Not Available [facility] [address] [facility], [place], [address], 05/07/2025 09:11:40 05/06/20 25 05/07/2025 CBC WITH DIFFE RENTI AL/PL ATELE T monocytes 10 % not estab. normal Not Available [facility] [address] [facility], [place], [address], 05/07/2025 09:11:40 05/06/20 25 05/07/2025 CBC WITH DIFFE RENTI AL/PL ATELE T eos 4 % not estab. normal Not Available [facility] [address] [facility], [place], [address], 05/07/2025 09:11:40 05/06/2005/07/2025 CBC WITH DIFFE RENTI AL/PL ATELE T basos 0 % not estab. normal Not Available [facility] [address] [facility], [place], [address], 05/07/2025 09:11:40 05/06/20 25 05/07/2025 CBC WITH DIFFE RENTI AL/PL ATELE T immature cells MANAGER ADULT Not Available [facility] [address] [place], [address], 05/07/2025 09:11:40 05/06/2005/07/2025 CBC WITH DIFFE RENTI AL/PL ATELE T neutrophils (absolute) 3.4 x10e3 /uL 1.4-7. 0 normal Not Available [facility] [address] [place], [address], 05/07/2025 09:11:40 05/06/2005/07/2025 CBC WITH DIFFE RENTI AL/PL ATELE T lymphs (absolute) 0.9 x10e3 /uL 0.7-3. 1 normal Not Available [facility] [address] [place], [address], 05/07/2025 09:11:40 05/06/20 25 05/07/2025 CBC WITH DIFFE RENTI AL/PL ATELE T monocytes(ab solute) 0.5 x10e3 /uL 0.1-0. 9 normal Not Available [facility] [address] [facility], [place], [address], 05/07/2025 09:11:40 05/06/20 25 05/07/2025 CBC WITH DIFFE RENTI AL/PL ATELE T eos (absolute) 0.2 x10e3 /uL 0.0-0. 4 normal Not Available [facility] [address] [facility], [place], [address], 05/07/2025 09:11:40 05/06/20 25 05/07/2025 CBC WITH DIFFE RENTI AL/PL ATELE T baso (absolute) 0.0 x10e3 /uL 0.0-0. 2 normal Not Available [facility] [address] [facility], [place], [address], 05/07/2025 09:11:40 05/06/20 25 05/07/2025 CBC WITH DIFFE RENTI AL/PL ATELE T immature granulocytes 0 % not estab. Not Available [facility] [address] [facility], [place], [address], 05/07/2025 09:11:40 05/06/20 25 05/07/2025 CBC WITH DIFFE RENTI AL/PL ATELE T immature grans (abs) 0.0 x10e3 /uL 0.0-0. 1 Not Available [facility] [address] [facility], [place], [address], 05/07/2025 09:11:40 05/06/20 25 05/07/2025 CBC WITH DIFFE RENTI AL/PL ATELE T NRBC MANAGER ADULT Not Available [facility] [address] [facility], [place], [address], 05/07/2025 09:11:40 05/06/20 25 05/07/2025 CBC WITH DIFFE RENTI AL/PL ATELE T hematology comments: MANAGER ADULT Not Available [facility] [address] [facility], [place], [address], 05/07/2025 09:11:40 05/06/20 25 05/07/2025 COMP. METAB OLIC PANEL (14) glucose 107 mg/dL 70-99 above high normal Not Available [facility] [address] [facility], [place], [address], 05/07/2025 09:11:41 05/06/20 25 05/07/2025 COMP. METAB OLIC PANEL (14) BUN 30 mg/dL 6-24 above high normal Not Available [facility] [address] [facility], [place], [address], 05/07/2025 09:11:41 05/06/20 25 05/07/2025 COMP. METAB OLIC PANEL (14) creatinine 1.44 mg/dL 0.57-1 .00 above high normal Not Available [facility] [address] [facility], [place], [address], 05/07/2025 09:11:41 05/06/20 25 05/07/2025 COMP. METAB OLIC PANEL (14) eGFR 43 mL/mi n/1.7 3 >59 below low normal Not Available [facility] [address] [facility], [place], [address], 05/07/2025 09:11:41 05/06/20 25 05/07/2025 COMP. METAB OLIC PANEL (14) BUN/creatini ne ratio 21 9-23 normal Not Available [facility] [address] [facility], [place], [address], 05/07/2025 09:11:41 05/06/20 25 05/07/2025 COMP. METAB OLIC PANEL (14) sodium 139 mmol/ L 134-14 4 normal Not Available [facility] [address] [facility] [place], [address], 05/07/2025 09:11:41 05/06/20 25 05/07/2025 COMP. METAB OLIC PANEL (14) potassium 4.0 mmol/ L 3.5-5. 2 normal Not Available [facility] [address] [place], [address], 05/07/2025 09:11:41 05/06/20 25 05/07/2025 COMP. METAB OLIC PANEL (14) chloride 99 mmol/ L 96-106 normal Not Available [facility] [address] [place], [address], 05/07/2025 09:11:41 05/06/20 25 05/07/2025 COMP. METAB OLIC PANEL (14) carbon dioxide, total 20 mmol/ L 20-29 normal Not Available [facility] [address] [facility] [place], [address], 05/07/2025 09:11:41 05/06/20 25 05/07/2025 COMP. METAB OLIC PANEL (14) calcium 9.0 mg/dL 8.7-10 .2 normal Not Available [facility] [address] [facility] [place], [address], 05/07/2025 09:11:41 05/06/20 25 05/07/2025 COMP. METAB OLIC PANEL (14) protein, total 6.6 g/dL 6.0-8. 5 normal Not Available [facility] [address] [facility] [place], [address], 05/07/2025 09:11:41 05/06/20 25 05/07/2025 COMP. METAB OLIC PANEL (14) albumin 3.8 g/dL 3.8-4. 9 normal Not Available [facility] [address] [place], [address], 05/07/2025 09:11:41 05/06/20 25 05/07/2025 COMP. METAB OLIC PANEL (14) globulin, total 2.8 g/dL 1.5-4. 5 Not Available [facility] [address] [place], [address], 05/07/2025 09:11:41 05/06/20 25 05/07/2025 COMP. METAB OLIC PANEL (14) bilirubin, total 0.3 mg/dL 0.0-1. 2 normal Not Available [facility] [address] [place], [address], 05/07/2025 09:11:41 05/06/20 25 05/07/2025 COMP. METAB OLIC PANEL (14) alkaline phosphatase 99 IU/L 49-135 normal Ple ase note refer ence inter myra coe e Not Available [facility] [address] [place], [address], 05/07/2025 09:11:41 05/06/20 25 05/07/2025 COMP. METAB OLIC PANEL (14) AST (SGOT) 18 IU/L 0-40 normal Not Available [facility] [address] [facility] [place], [address], 05/07/2025 09:11:41 05/06/20 25 05/07/2025 COMP. METAB OLIC PANEL (14) ALT (SGPT) 12 IU/L 0-32 normal Not Available [facility] [address] [facility] [place], [address], 05/07/2025 09:11:41 05/06/20 25 05/07/2025 LIPID PANEL cholesterol, total 167 mg/dL 100-19 9 normal Not Available [facility] [address] [facility], [place], [address], 05/07/2025 09:11:41 05/06/20 25 05/07/2025 LIPID PANEL triglyceride s 137 mg/dL 0-149 normal Not Available [facility] [address] [facility], [place], [address], 05/07/2025 09:11:41 05/06/20 25 05/07/2025 LIPID PANEL HDL cholesterol 55 mg/dL >39 normal Not Available [facility] [address] [facility], [place], [address], 05/07/2025 09:11:41 05/06/20 25 05/07/2025 LIPID PANEL VLDL cholesterol venkatesh 24 mg/dL 5-40 Not Available [facility] [address] [facility], [place], [address], 05/07/2025 09:11:41 05/06/20 25 05/07/2025 LIPID PANEL LDL chol calc ([facility]) 88 mg/dL 0-99 Not Available [facility] [address] [facility], [place], [address], 05/07/2025 09:11:41 05/06/20 25 05/07/2025 LIPID PANEL LDL calc comment: MANAGER ADULT Not Available [facility] [address] [facility], [place], [address], 05/07/2025 09:11:41 05/06/20 25 05/07/2025 TSH TSH 2.740 uIU/m L 0.450- 4.500 normal Not Available [facility] [address] [place], [address], 05/07/2025 09:11:42 05/06/20 25 05/07/2025 VITAM IN D, 25-HY DROXY vitamin D, 25-hydroxy 47.0 NG/mL 30.0-1 00.0 Vitam in D defic iency has been defin ed by the Insti tute of Medic ine and an Endoc rine Socie ty pract ice guide line as a level of serum 25-OH vitam in D less than 20 ng/mL (1,2) . The Endoc rine Socie ty went on to furth er defin e vitam in D insuf ficie ncy as a level betwe en 21 and 29 ng/mL (2). 1. IOM (Inst itute of Medic ine). 2010. Dieta ry refer ence intak es for calci um and D. Sarmad loredo [place]: The [facility] Press . 2. Ross willson [place], Mulugeta martinez [place], Max off-F garth i GOMEZ, et al. Evalu ation , treat ment, and preve ntion of vitam in D defic iency : an Endoc rine Socie ty clini venkatesh pract ice guide line. JCEM. 2010; 96(7) :1911 -30. Not Available [facility] [address] [facility], [place], [address], 05/07/2025 09:11:42 09/24/19 25 09/18/2024 XR, hip + pelvi s, bilat eral No observ ation record ed. [facility] (Med Record) [address], [place], [address], 09/24/2024 17:34:35 10/08/19 25 09/30/2024 elect alycia cervantesgr am, routi ne ECG, 12 leads min; inter preta tion and repor t (PROC ) No observ ation record ed. [email or web address] [facility] [address] , [place], [address], 10/15/2024 11:45:27 04/15/20 25 04/15/2025 XR, forea rm, 2 view No observ ation record ed. [email or web address] [facility] [address], [place], [address], 04/16/2025 08:45:33 04/15/2004/15/2025 XR, hand, 3 or more view No observ ation record ed. [email or web address] [facility] [address], [place], [address], 04/16/2025 08:45:05 04/15/2004/15/2025 XR, wrist No observ ation record ed. [email or web address] [facility] [address], [place], [address], 04/16/2025 08:44:41 Result Notes None recorded. Problems Name Problem SNOMED Code Status Onset Date Resolution Date Notes Provider Name and Address Organization Details Recorded Time Depressiv e disorder 88853527 Active 2023 ROSIE Mena [address] [place] [address], [address] 8, [employer] 5 10:29:07 Osteoarth ritis 445647650 Active 2023 ROSIE Mena [address] [place] [address], 39[address] 8, [employer] 5 10:29:00 Gout 92616453 Active 2023 ROSIE Mena [address] [place] [address], [address] 8, [employer] 5 10:29:01 Acute kidney injury 11145527 Active 2023 ROSIE Mena [address] [place] [address], [address] 8, [employer] 5 10:29:05 Serum creatinin e above reference range 105174505 Active 2023 ROSIE Mena [address] [place] [address], 139[address] 8, [employer] 5 10:28:58 Congestiv e heart failure 44171332 Active 2023 ROSIE Mena [address] [place] [address], 470[address] 8, [employer] 5 10:28:50 Essential hypertens ion 62212864 Active 2023 ROSIE Mena [address] [place] [address], 797[address] 8, [employer] 5 10:29:09 Acute bronchiti s 29258974 Completed 202309/16/2024 ROSIE Mena [address] [place] [address], 78[address] 8, [employer] 5 10:28:53 Chronic kidney disease 770818849 Active 2024 ROSIE Mena [address] [place] [address], [address] 8, [employer] 5 17:12:34 Heart murmur 04299524 Active 2024 ROSIE Mena [address] [place] [address], 507[address] 8, [employer] 08:41:01 Low blood pressure 93788930 Active 2024 ROSIE Mena [address] [place] [address], 435[address] 8, [employer] 11:36:44 Closed fracture of left wrist 735051206831 63376 Active 2024 ROSIE Mena [address] [place] [address], 46898[address]350 8, [employer] 11:36:55 Problem Notes None recorded. Procedures Surgical History Date Name Laterality Status Provider Name and Address Organization Details Recorded Time 12/17/19 Date of Last Pap Smear completed [employer] 09/16/2024 10:31:23 Joint Replacement completed [employer] 06/14/2024 10:17:21 Tonsillectomy completed [employer] 06/14/2024 10:17:21 Cardiac Surgery completed [employer] 06/14/2024 10:17:21 Gallbladder Surgery completed [employer] 06/14/2024 10:17:21 Imaging Results None recorded. Procedure Notes None recorded. Medical Equipment None Reported. Allergies Allergen ID Allergen Name Allergen Category Reaction Reaction Severity Criticality Documentation Date Start Date Code Code System Note Provider Name and Address Organization Details Recorded Time 23603 Substance with sulfonami de structure and antibacte rial mechanism of action (substanc e) medicatio n itching nausea rash Not available Not available Not available Not available 06/14/2024 [id number] SNOMED Cherie Vice [facility], [employer]. 10:17:19 Medications Name Sig Start Date Stop [...] completed Not Available Not Available Not Available ofloxacin 0.3 % eye drops INSTILL 1 DROP INTO OPERATIVE EYE 4 TIMES A DAY FOR 7 DAYS active Not Available Not Available No t Available medroxyprog esterone 2.5 mg tablet TAKE [...] Not Available Not Available No t Available ketorolac 0.5 % eye drops STARTING 3 DAYS BEFORE SURGERY USE 1 DROP INTO OPERATIVE EYE 4 TIMES A DAY FOR 10 DAYS THEN DECREASE TO 2 TIMES A DAY FOR 14 DAYS active Not Available Not Available No t Available cefadroxil 500 mg capsule 06/14 completed Not Available Not Available Not Available potassium chloride ER 20 mEq tablet,exte nded release(par t/cryst) TAKE ONE TABLET BY MOUTH 2 TIMES A DAY 2024 active Not Available Not Available Not Avai lable prednisolon e acetate 1 % eye drops,suspe nsion INSTILL 1 DROP INTO OPERATIVE EYE 4 TIMES A DAY FOR 7 DAYS THEN DECREASE TO 2 TIMES A DAY FOR 14 DAYS active Not Available Not Available No t Available torsemide 100 mg tablet TAKE ONE TABLET BY MOUTH ONCE A DAY 05/06 completed Not Available Not Available Not Available benzonatate 100 mg capsule 06/14 completed [...] TABLET BY MOUTH 2 TIMES A DAY 2024 active Not Available Not Available Not Avai lable levothyroxi ne 200 mcg tablet TAKE ONE TABLET BY MOUTH ONCE A DAY 2024 active Not Available Not Available Not Avai lable gabapentin 100 mg capsule 06/14 completed Not [...] Not Available Not Available No t Available ondansetron 4 mg disintegrat ing tablet DISSOLVE 1 tablet ON THE TONGUE EVERY 8 HOURS NEEDED FOR NAUSEA AND VOMITING FOR 4 DAYS active Not Available Not Available No t Available cefdinir 300 mg capsule TAKE 1 CAPSULE BY MOUTH 2 TIMES A DAY FOR 10 DAYS 05/06 completed Not Available Not Available Not Available doxycycline hyclate 100 mg tablet 06/14 completed Not Available Not Available Not Available hydroxyzine pamoate 25 mg capsule TAKE 1 CAPSULE BY MOUTH AT BEDTIME 2024 active Not Available Not Available Not Avai lable buprenorphi ne 8 mg-naloxone 2 mg sublingual [...] 2 TIMES A DAY FOR HEART FAILURE 2024 active Not Available Not Available Not Avai lable naloxone 4 mg/actuatio n nasal spray active [...] Pulse oximetry Heart rate Body temperature Systolic And Diastolic Provider Name and Address Organization Details Last Updated DateTime 5 162.56 cm 46.5 kg/m2 701743. 53 g 96 % 96 % 82 /min 98.1 [degF] 100/66 mm[Hg] [facility]. 5 10:20:28 Date Recorded Body height Body mass index (BMI) Body weight Heart rate Oxygen saturation Oxygen saturation in Arterial blood by Pulse oximetry Systolic And Diastolic Systolic And Diastolic Provider Name and Address Organization Details Last Updated DateTime 5 162.56 cm 48.9 kg/m2 857410. 83 g 84 /min 99 % 99 % 85/53 mm[Hg] 88/50 mm[Hg] [employer]. 5 08:25:15 Date Recorded Body height Heart rate Body temperature Oxygen saturation Oxygen saturation in Arterial blood by Pulse oximetry Systolic And Diastolic Systolic And Diastolic Provider Name and Address Organization Details Last Updated DateTime 5 162.56 cm 84 /min 98.2 [degF] 92 % 92 % 88/52 mm[Hg] 90/53 mm[Hg] Mirtha KROGNI 5 11:11:16 Date Recorded Body weight Body mass index (BMI) Body height Oxygen saturation Oxygen saturation in Arterial blood by Pulse oximetry Heart rate Systolic And Diastolic Provider Name and Address Organization Details Last Updated DateTime 4 095461. 64 g 48.6 kg/m2 162.56 cm 95 % 95 % 72 /min 136/79 mm[Hg] [facility] 4 10:16:13 Date Recorded Body height Body mass index (BMI) Body weight Heart rate Oxygen saturation Oxygen saturation in Arterial blood by Pulse oximetry Systolic And Diastolic Provider Name and Address Organization Details Last Updated DateTime 4 162.56 cm 47.7 kg/m2 603740. 68 g 96 /min 95 % 95 % 117/69 mm[Hg] [facility] 4 15:01:18 Social History Question Answer Notes LastModified by Organizat ion Details LastModified Time Tobacco Smoking Status Never Smoker Cherie [employer]. 06/14/2024 10:17:20 Do You Have An Advance [...] Information not available 06/14/2024 What Type Of Investment Executive Do You Use? None Information not available [...] Or The Highest Degree You Have Received? [id number] Information not available 06/14/2024 Have There Been Any Changes To Your Family Or Social Situation? No Information no t available 06/14/2024 Are There Any Guns Present In Your Home? No Information not available 06/14/2024 Which Of Your Hands Is Dominant? Right Information not available 06/14/2024 What Is Your Home Situation? Other Information not available 06/14/2024 Do You Have A Medical Power Of Pressurizer? No Information not available 06/14/2024 What Was The Date Of Your Most Recent Tobacco Screening? 05/06/2025 [email or web address] Information not available 05/06/2025 Do You Have Any Pets? Yes Information [...] Functional Status Question Answer Note LastModified by [employer] ion Details LastModified Time Do you use [...] not available 06/14/2024 Are you able to walk independently without assistance or assistive devices? YESWOREST Information not available 06/14/2024 Do you have difficulty doing errands alone? Yes Information not available 06/14/2024 Are you able to care for yourself independently? Yes Information not available 06/14/2024 Do you have difficulty dressing, bathing, grooming, or toileting? Yes Information not available 06/14/2024 What is your exercise level? None Information not available 06/14/2024 Mental Status Question Answer Note LastModified by [employer] Details LastModified Time Do you feel stressed (tense, restless, nervous, or anxious, or unable to sleep at night)? [id number] Information not available 08/12/2024 Do you have difficulty concentrating, remembering or making decisions? Yes Information no t available 06/14/2024 Are you or have you been involved with bullying? No Information not available 06/14/2024 Family History Relationship Description Onset Age of this Age Resolved Age Notes LastModified by Organization Details LastModified Time Mother Hypercholest erolemia Not available 2023 10:17:19 Mother Harmful pattern of use of alcohol Not available 2023 10:17:19 Mother Asthma Not available 10:17:19 Mother Anxiety disorder Not available 2023 10:17:19 Mother Malignant neoplasm of breast Not available 2023 10:17:19 Mother [...] disorder Not available 2023 10:17:19 Sister Malignant neoplasm of cervix uteri Not available 10:17:19 Sister Malignant neoplasm of ovary Not [...] Artery Disease Y Other N Gout Y Blood Diseases N Kidney Stones N Hyperthyroidism N Blood Transfusion N Breast Cancer N Emergency room visit since last appointm ent. N Lung Disease N COPD N Depression Y Dermatologic Disorders N Hypothyroidism N Defects or Inherited Disease N Developmental or [...] Psychiatric/Mental Health Condition N Organ Transplant N Dialysis N Schizophrenia N Fibromyalgia N Headaches N Kidney Disease N Allergies/Hayfever N Heart Problems N Ear or Hearing Problems N Hospitalizations N Learning Disorder N Artificial Joints N Thyroid Problems Y GI Problems N Acne N ADD/ADHD Y Eating Disorder N Anemia N Constipation N Mental Illness N Diabetes N Ovarian Cancer N Bedwetting N Hepatitis/Liver Disease N Tuberculosis N Congestive Heart Failure (CHF) Y Eczema N Abuse/Domestic Violence N Diverticulitis N Asthma Y Trauma/Violence N Reflux/GERD N Depression/ depression N Hepatitis N Heart Disease Y Pulmonary Embolism N Tourette Syndrome N Chronic Ear Infections N Pre-Eclampsia N Hypertension Y Chicken Pox N Autism Spectrum Disorder (ASD) N Osteoporosis Y Thrombophilias N Gynecological History Statement/Question Response If [...] 30 mcg/0.3 mL dose 09/08/2021 [facility] 08/12/2024 14:57:31 COVID-19, mRNA, LNP-S, PF, 30 mcg/0.3 mL dose 08/11/2021 completed Cherie Vice null, [employer] 08/12/2024 14:57:31 COVID-19, mRNA, LNP-S, PF, 30 mcg/0.3 mL dose, jayce-sucrose 03/28/2022 completed Cherie Vice null, [employer] 08/12/2024 14:57:31 tetanus toxoid, adsorbed 11/09/2009 completed Cherie Vice null, [employer] 08/12/2024 14:57:31 Hep A-Hep B 01/25/2024 completed Cherie Vice null, [employer] 08/12/2024 14:57:31 Hep A-Hep B 04/24/2024 completed Cherie Vice null, [employer] 08/12/2024 14:57:31 Past Encounters Encounter ID Performer Location Encounter Start Date Encounter Closed Date Diagnosis/Indication Diagnosis SNOMED-CT Code Diagnosis ICD10 Code Diagnosis IMO Codes Diagnosis Note [id number] ROSIE Mena [address] [address] 06/14/2024 09:39:19 06/14/2024 11:31:46 Screening mammography 92295990 Z12.31 Osteoarthritis 123301097 M19.90 Gout 06542161 M10.9 Acute kidney injury 1466 9001 N17.9 repeat BMP Monday Serum crea tinine above reference range 586242345 R79.89 Congestive heart failure 91512020 I50.9 torsemide sparingly due to kidney injury but patient is retaining fluid, dsypneic so is likely going to have to resume it [id number] ROSIE Mena [facility] [address] [place] [address] 08/12/2024 14:35:51 08/12/2024 15:29:15 Cough 83928518 R05.9 Acute bronchitis 4567559 2 J20.9 Congestive heart failure 67174000 I50.9 [id number] ROSIE Mena [facility] [address] [place] [id number] 09/16/2024 10:01:55 09/16/2024 10:53:38 Screening colonoscopy 001753061 Z12.11 Low back pain 286759110 M54.50 Serum crea tinine above reference range 331515550 R79.89 Congestive heart failure 33057408 I50.9 [id number] ROSIE Mena [address] [place] [address] 10/08/2024 08:11:46 10/08/2024 09:17:28 Heart murmur 08541038 R01.1 Low blood pressure 08479 003 I95.9 We could not get EKG to connect here in the office this am, so patient was sent to [facility] for EKG, CBC, BMPLab called with critical potassium of 2.9Called patient and advised her to go to ER for replacemen t and tele monitoring [id number] ROSIE Mena [facility] [address] [place] [address] 05/06/2025 10:41:05 05/06/2025 11:45:49 Body mass index 40+ - severely obese 793019454 Z68.42 [id number] Screening mammography 24 049549 Z12.31 6081013836 Screening for malignant neoplasm of colon 589102999 Z12.11 884141 Amnesia 13480723 R41.3 93882 Vertigo 577208895 R42 76603 Low blood pressure 29412 003 I95.9 [id number] Decrease Entresto, Bumex and spironolac tone by 1/2 until she is able to see cardiology Closed fra cture of left wrist 3734287438 2897107 S62.102A 84645941 Health Concerns Section Related Observation LastModified by Organization Detai ls LastModified Time None Recorded Concern Status LastModified by Organization Details LastModified Time None Recorded Advance Directives Directive N: Payers Insurance Date Sequence Insurance Name Policy Number Policy Jonas Covered Member ID Jonas Member ID Guarantor Name 05/31/2025 1 [employer] [facility] (MEDICAID HMO) Lesia Doran [id number] Lesia Doran Notes Date Note Type Note Provider Name and Address Organization Details Recorded Time 06/14/2024 text/html Patient presents to establish care at [facility], former patient of mine.Patient states that she has been in and out of the hospital a few times over the past few months. Had pain, swelling, unable to move left arm. Had been treated for cellulitis approximately one month prior. This time, she was diagnosed with gout. Kidney function was elevated while at [facility] - creatinine was 5 initially and then came down to 1.9 and eGFR was 27.She is tired and short of breath with exertion. She has gained weight. They held her fluid pill while at [facility] to recheck her kidney function before resuming, but she has not heard from them yet. ROSIE Mena [address] [place], [address], [employer]. 06/14/2024 14:06:21 08/12/2024 text/html Patient has had [...] been taking them daily. ROSIE Mena [address] [place], [address], [employer] 08/12/2024 16:22:23 09/16/2024 text/html Patient states that she fell on the ice 3 different times on 09/11. She struck her low back. Has pain in her low back and both hips. 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 SHe feels like her left hip is higher than her right. ROSIE Mena [address] [place], [address], [employer], [employer]. 09/16/2024 15:46:04 10/08/2024 text/html ROS as noted in the HPI Patient presents for followup.Blood pressure is low today. States that it has been running low. States she has been having intermittent chest pain. Denies headache, dizziness or syncope. Has had swelling. History of CHF as well as CKD, which has made her treatment complicated. Has an appt with cardiology next week for cardiology clearance before her colonoscopy. ROSIE Mena [address] [place], [address], [employer], [employer]. 10/08/2024 11:36:02 05/06/2025 text/html ROS as noted in the HPI Patient presents requesting referral to neurology. States that she has been dizzy, had memore loss, brain fog, forgetfulness.Blood pressure is low today. She used to have HTN. She has CHF. Had ARF last winter. States she has been drinking Gatorade.Has fallen several times. Has a fracture of the left wrist currently. ROSIE Mena [address] [place], [address], [employer] 05/06/2025 15:38:58 OBGyn Episode No OBEpisode recorded.
--- OUTSIDE RECORDS SUMMARY | 2025-06-25 09:26 | XMS_ITS | Clinical Summary ---
Author Organization [facility] Address [address] [place] [address] Care Team Providers Care [employer] Sales [employer] Management Name Role Phone Janice Fitzpatrick Primary Care Provider [phone] Allergies Active Allergy Reactions Criticality Noted Date [...] 3 Active vitamin D (ERGOCALCIFEROL) 1.25 MG (85411 UT) capsule capsule 3 Active buprenorphine-na loxone [...] C SCREENING 12/02/2022 INFLUENZA VACCINE 03/21/2025 Insurance [facility] Care Teams [employer] Sales [employer] Management Relationship Specialty Start Date End Date Janice Fitzpatrick PA PCP - General Physician Master Dyer 12/02/22
--- OUTSIDE RECORDS SUMMARY | 2025-06-25 09:27 | XMS_ITS | Continuity of Care Document ---
Author Organization [facility] [place] Lo[employer]aria, Mattmy[employer]chy [facility] Address [address] [place] [address] Assessment No assessment recorded. Plan of Treatment Reminders Order Date Submit Date Provider Last Modified By Organization Details Last Modified Time Details Appointments None recorded. Lab lipid panel, serum 2024 025 [facility] ([place]), [address] [place], [address], 5 09:11:41 CMP, serum or plasma 2024 025 [facility] [address] [place], [address], 5 09:11:41 CBC w/ auto diff 2024 025 EVERSON [facility] ([place]), [address] [place], [address], 5 09:11:40 vitamin D, 25-hydroxy, total, serum 2024 025 PRANEETH [facility] ([place]), [address] [place], [address], 5 09:11:42 TSH, ultra-sensi tive, serum 2024 025 [facility]log [facility] [address] [place], [address], 5 09:11:42 Referral neurologist referral 2024 025 [email or web address] Polly Duong MD, [address], [place], [address], 5 10:45:44 cardiologis t referral 2024 025 [facility], [address], [place], [address], 15:26:43 Procedures colonoscopy screening (PROC) 2024 025 [id number] Karlos Draper MD, [address], [place], [address], 5 15:52:41 Surgeries None recorded. Imaging CT, head + brain, w/o contrast [address] Centralized Scheduling, [address] [place], [address], 13:27:13 MAMMO, screening, digital, bilateral [address] Centralized Scheduling, [address] [place], [address], 5 14:38:18 DEXA [address] (X-Ray), [address] [place] [address] [address], [place], [address], 5 14:36:19 Medication Orders None recorded. Patient TargetsNo targets recorded. Patient Instructions Encounter Date Encounter Id Patient Instructions Last Modified By Organization Details Last Modified Time 05/06/2025 [id number] mammogram: about this test Not available 05/06/2025 11:35:54 body mass index: care instructions [email or web address] Not available 05/06/2025 11:35:54 learning about healthy weight [email or web address] Not available 05/06/2025 11:35:54 low blood pressure: care instructions [email or web address] Not available 05/06/2025 11:38:46 Reason for Referral Neurologist Referral for Amn esia Referring Physician: [facility], Encounter Date: 05/06/2025 Food Beverage Manager Referral for Ve rtigo Referring Physician: [facility], Encounter Date: 05/06/2025 Results Created Date Observation Date Name Description Value Unit Range Abnormal Flag Note LastModifiedBy Organization Detail LastModifiedTime 05/06/2005/07/2025 CBC WITH DIFFE RENTI AL/PL ATELE T WBC 5.0 x10e3 /uL 3.4-10 .8 normal Not Available [facility] ([facility]) [address] [place], [address], 05/07/2025 09:11:40 05/06/20 25 05/07/2025 CBC WITH DIFFE RENTI AL/PL ATELE T RBC 2.99 x10e6 /uL 3.77-5 .28 below low normal Not Available [facility] ([facility]) [address] [place], [address], 05/07/2025 09:11:40 05/06/20 25 05/07/2025 CBC WITH DIFFE RENTI AL/PL ATELE T hemoglobin 9.4 g/dL 11.1-1 5.9 below low normal Not Available [facility] ([facility]) [address] [place], [address], 05/07/2025 09:11:40 05/06/20 25 05/07/2025 CBC WITH DIFFE RENTI AL/PL ATELE T hematocrit 29.9 % 34.0-4 6.6 below low normal Not Available [facility] ([facility]) [address] [place], [address], 05/07/2025 09:11:40 05/06/20 25 05/07/2025 CBC WITH DIFFE RENTI AL/PL ATELE T MCV 100 fL 79-97 above high normal Not Available [facility] ([facility]) [address] [facility], [place], [address], 05/07/2025 09:11:40 05/06/20 25 05/07/2025 CBC WITH DIFFE RENTI AL/PL ATELE T MCH 31.4 pg 26.6-3 3.0 normal Not Available [facility] ([facility]) [address] [facility], [place], [address], 05/07/2025 09:11:40 05/06/20 25 05/07/2025 CBC WITH DIFFE RENTI AL/PL ATELE T MCHC 31.4 g/dL 31.5-3 5.7 below low normal Not Available [facility] ([facility]) [address] [facility], [place], [address], 05/07/2025 09:11:40 05/06/20 25 05/07/2025 CBC WITH DIFFE RENTI AL/PL ATELE T RDW 13.9 % 11.7-1 5.4 Not Available [facility] ([facility]) [address] [facility], [place], [address], 05/07/2025 09:11:40 05/06/20 25 05/07/2025 CBC WITH DIFFE RENTI AL/PL ATELE T platelets 313 x10e3 /uL 150-45 0 normal Not Available [facility] ([facility]) [address] [place], [address], 05/07/2025 09:11:40 05/06/2005/07/2025 CBC WITH DIFFE RENTI AL/PL ATELE T neutrophils 68 % not estab. normal Not Available [facility] ([facility]) [address] [place], [address], 05/07/2025 09:11:40 05/06/20 25 05/07/2025 CBC WITH DIFFE RENTI AL/PL ATELE T lymphs 18 % not estab. normal Not Available [facility] ([facility]) [address] [place], [address], 05/07/2025 09:11:40 05/06/20 25 05/07/2025 CBC WITH DIFFE RENTI AL/PL ATELE T monocytes 10 % not estab. normal Not Available [facility] ([facility]) [address] [facility], [place], [address], 05/07/2025 09:11:40 05/06/20 25 05/07/2025 CBC WITH DIFFE RENTI AL/PL ATELE T eos 4 % not estab. normal Not Available [facility] ([facility]) [address] [place], [address], 05/07/2025 09:11:40 05/06/20 25 05/07/2025 CBC WITH DIFFE RENTI AL/PL ATELE T basos 0 % not estab. normal Not Available [facility] ([facility]) [address] [place], [address], 05/07/2025 09:11:40 05/06/20 25 05/07/2025 CBC WITH DIFFE RENTI AL/PL ATELE T immature cells IT GENERALIST Not Available [facility] ([facility]) [address] [place], [address], 05/07/2025 09:11:40 05/06/20 25 05/07/2025 CBC WITH DIFFE RENTI AL/PL ATELE T neutrophils (absolute) 3.4 x10e3 /uL 1.4-7. 0 normal Not Available [facility] ([facility]) [address] [place], [address], 05/07/2025 09:11:40 05/06/20 25 05/07/2025 CBC WITH DIFFE RENTI AL/PL ATELE T lymphs (absolute) 0.9 x10e3 /uL 0.7-3. 1 normal Not Available [facility] ([facility]) [address] [place], [address], 05/07/2025 09:11:40 05/06/20 25 05/07/2025 CBC WITH DIFFE RENTI AL/PL ATELE T monocytes(ab solute) 0.5 x10e3 /uL 0.1-0. 9 normal Not Available [facility] ([facility]) [address] [facility], [place], [address], 05/07/2025 09:11:40 05/06/20 25 05/07/2025 CBC WITH DIFFE RENTI AL/PL ATELE T eos (absolute) 0.2 x10e3 /uL 0.0-0. 4 normal Not Available [facility] ([facility]) [address] [place], [address], 05/07/2025 09:11:40 05/06/20 25 05/07/2025 CBC WITH DIFFE RENTI AL/PL ATELE T baso (absolute) 0.0 x10e3 /uL 0.0-0. 2 normal Not Available [facility] ([facility]) [address] [facility], [place], [address], 05/07/2025 09:11:40 05/06/20 25 05/07/2025 CBC WITH DIFFE RENTI AL/PL ATELE T immature granulocytes 0 % not estab. Not Available [facility] ([facility]) [address] [place], [address], 05/07/2025 09:11:40 05/06/20 25 05/07/2025 CBC WITH DIFFE RENTI AL/PL ATELE T immature grans (abs) 0.0 x10e3 /uL 0.0-0. 1 Not Available [facility] ([facility]) [address] [place], [address], 05/07/2025 09:11:40 05/06/20 25 05/07/2025 CBC WITH DIFFE RENTI AL/PL ATELE T NRBC IT GENERALIST Not Available [facility] ([facility]) [address] [place], [address], 05/07/2025 09:11:40 05/06/20 25 05/07/2025 CBC WITH DIFFE WENDY AL/PL WALTER T hematology comments: IT GENERALIST Not Available [facility] ([facility]) [address] [facility], [place], [address], 05/07/2025 09:11:40 05/06/20 25 05/07/2025 COMP. METAB OLIC PANEL (14) glucose 107 mg/dL 70-99 above high normal Not Available [facility] ([facility]) [address] [place], [address], 05/07/2025 09:11:41 05/06/20 25 05/07/2025 COMP. METAB OLIC PANEL (14) BUN 30 mg/dL 6-24 above high normal Not Available [facility] ([facility]) [address] [place], [address], 05/07/2025 09:11:41 05/06/20 25 05/07/2025 COMP. METAB OLIC PANEL (14) creatinine 1.44 mg/dL 0.57-1 .00 above high normal Not Available [facility] ([facility]) [address] [place], [address], 05/07/2025 09:11:41 05/06/20 25 05/07/2025 COMP. METAB OLIC PANEL (14) eGFR 43 mL/mi n/1.7 3 >59 below low normal Not Available [facility] ([facility]) [address] [place], [address], 05/07/2025 09:11:41 05/06/20 25 05/07/2025 COMP. METAB OLIC PANEL (14) BUN/creatini ne ratio 21 9-23 normal Not Available [facility] ([facility]) [address] [place], [address], 05/07/2025 09:11:41 05/06/20 25 05/07/2025 COMP. METAB OLIC PANEL (14) sodium 139 mmol/ L 134-14 4 normal Not Available [facility] ([facility]) [address] [place], [address], 05/07/2025 09:11:41 05/06/20 25 05/07/2025 COMP. METAB OLIC PANEL (14) potassium 4.0 mmol/ L 3.5-5. 2 normal Not Available [facility] ([facility]) [address] [place], [address], 05/07/2025 09:11:41 05/06/20 25 05/07/2025 COMP. METAB OLIC PANEL (14) chloride 99 mmol/ L 96-106 normal Not Available [facility] ([facility]) [address] [place], [address], 05/07/2025 09:11:41 05/06/20 25 05/07/2025 COMP. METAB OLIC PANEL (14) carbon dioxide, total 20 mmol/ L 20-29 normal Not Available [facility] ([facility]) [address] [place], [address], 05/07/2025 09:11:41 05/06/20 25 05/07/2025 COMP. METAB OLIC PANEL (14) calcium 9.0 mg/dL 8.7-10 .2 normal Not Available [facility] ([facility]) [address] [place], [address], 05/07/2025 09:11:41 05/06/20 25 05/07/2025 COMP. METAB OLIC PANEL (14) protein, total 6.6 g/dL 6.0-8. 5 normal Not Available [facility] ([facility]) [address] [place], [address], 05/07/2025 09:11:41 05/06/20 25 05/07/2025 COMP. METAB OLIC PANEL (14) albumin 3.8 g/dL 3.8-4. 9 normal Not Available [facility] ([facility]) [address] [place], [address], 05/07/2025 09:11:41 05/06/20 25 05/07/2025 COMP. METAB OLIC PANEL (14) globulin, total 2.8 g/dL 1.5-4. 5 Not Available [facility] ([facility]) [address] [place], [address], 05/07/2025 09:11:41 05/06/2005/07/2025 COMP. METAB OLIC PANEL (14) bilirubin, total 0.3 mg/dL 0.0-1. 2 normal Not Available [facility] ([facility]) [address] [place], [address], 05/07/2025 09:11:41 05/06/20 25 05/07/2025 COMP. METAB OLIC PANEL (14) alkaline phosphatase 99 IU/L 49-135 normal Ple ase note refer ence inter myra coe e Not Available [facility] ([facility]) [address] [place], [address], 05/07/2025 09:11:41 05/06/20 25 05/07/2025 COMP. METAB OLIC PANEL (14) AST (SGOT) 18 IU/L 0-40 normal Not Available [facility] ([facility]) [address] [place], [address], 05/07/2025 09:11:41 05/06/2005/07/2025 COMP. METAB OLIC PANEL (14) ALT (SGPT) 12 IU/L 0-32 normal Not Available [facility] ([facility]) [address] [place], [address], 05/07/2025 09:11:41 05/06/20 25 05/07/2025 LIPID PANEL cholesterol, total 167 mg/dL 100-19 9 normal Not Available [facility] ([facility]) [address] [place], [address], 05/07/2025 09:11:41 05/06/20 25 05/07/2025 LIPID PANEL triglyceride s 137 mg/dL 0-149 normal Not Available [facility] ([facility]) [address] [facility], [place], [address], 05/07/2025 09:11:41 05/06/20 25 05/07/2025 LIPID PANEL HDL cholesterol 55 mg/dL >39 normal Not Available [facility] ([facility]) [address] [place], [address], 05/07/2025 09:11:41 05/06/20 25 05/07/2025 LIPID PANEL VLDL cholesterol venkatesh 24 mg/dL 5-40 Not Available [facility] ([facility]) [address] [facility], [place], [address], 05/07/2025 09:11:41 05/06/20 25 05/07/2025 LIPID PANEL LDL chol calc ([facility]) 88 mg/dL 0-99 Not Available [facility] ([facility]) [address] [place], [address], 05/07/2025 09:11:41 05/06/20 25 05/07/2025 LIPID PANEL LDL calc comment: IT GENERALIST Not Available [facility] ([facility]) [address] [facility], [place], [address], 05/07/2025 09:11:41 05/06/2005/07/2025 TSH TSH 2.740 uIU/m L 0.450- 4.500 normal Not Available [facility] ([facility]) [address] [place], [address], 05/07/2025 09:11:42 05/06/20 25 05/07/2025 VITAM IN [...] Medic ine). 2010. Dieta ry refer ence intnehemias es for calci um and D. Sarmad loredo [place]: [facility] . 2. Ross willson [place], Mulugeta martinez [place], Max off-F errar i GOMEZ, et al. Evalu ation , treat ment, and preve ntion of vitam in D defic iency : an Endoc rine Socie ty clini venkatesh pract ice guide line. JCEM. 2010; 96(7) :1911 -30. Not Available [facility] ([facility]) [address], [place], [address], 05/07/2025 09:11:42 04/15/2004/15/2025 XR, forea rm, 2 view No observ ation record ed. [address], [place], [address], 04/16/2025 08:45:33 04/15/2004/15/2025 XR, hand, 3 or more view No observ ation record ed. [address], [place], [address], 04/16/2025 08:45:05 04/15/20 25 04/15/2025 XR, wrist No observ ation record ed. [address], [place], [address], 04/16/2025 08:44:41 Result Notes None recorded. Problems Name Problem SNOMED Code Status Onset Date Resolution Date Notes Provider Name and Address Organization Details Recorded Time Depressiv e disorder 62347387 Active 2023 ROSIE Mena [address] [place] [address], [address], [employer] 10:29:07 Osteoarth ritis 575376141 Active 2023 ROSIE Mena [address] [place] [address], [address] 8, [employer] 10:29:00 Gout 67609068 Active 2023 ROSIE Mena [address] [place] [address], 873[address] 8, [employer] 10:29:01 Acute kidney injury 14840833 Active 2023 ROSIE Mena [address] [place] [address], 699[address] 8, [employer] 10:29:05 Serum creatinin e above reference range 151504280 Active 2023 ROSIE Mena [address] [place] [address], [address] 8, [employer] 10:28:58 Congestiv e heart failure 18447457 Active 2023 ROSIE Mena [address] [place] [address], [address] 8, [employer] 10:28:50 Essential hypertens ion 23995408 Active 2023 ROSIE Mena [address] [place] [address], 578[address] 8, [employer] 5 10:29:09 Acute bronchiti s 46466497 Completed 202309/16/2024 ROSIE Mena [address] [place] [address], [address] 8, [employer] 5 10:28:53 Chronic kidney disease 839190721 Active 2024 Janice ROSIE Fitzpatrick [address] [place] [address], 014[address]143 8, [employer] 5 17:12:34 Heart murmur 01528852 Active 2024 Janice ROSIE Fitzpatrick [address] [place] [address], 464[address] 8, [employer] 5 08:41:01 Low blood pressure 82685282 Active 2024 Janice ROSIE Fitzpatrick [address] [place] [address], [address]46[address] 8, [employer] 11:36:44 Closed fracture of left wrist 937776751084 70952 Active 2024 Janice ROSIE Fitzpatrick [address] [place] [address], 45[address]350 8, [employer] 11:36:55 Problem Notes None recorded. Procedures Surgical History Date Name Laterality Status Provider Name and Address Organization Details Recorded Time 12/17/19 22 Date of Last Pap Smear completed [employer] 09/16/2024 10:31:23 Joint Replacement completed [employer] 06/14/2024 10:17:21 Tonsillectomy completed [employer]. 06/14/2024 10:17:21 Cardiac Surgery completed [employer]. 06/14/2024 10:17:21 Gallbladder Surgery completed [employer]. 06/14/2024 10:17:21 Imaging Results None recorded. Procedure Notes None recorded. Medical Equipment None Reported. Allergies Allergen ID Allergen Name Allergen Category Reaction Reaction Severity Criticality Documentation Date Start Date Code Code System Note Provider Name and Address Organization Details Recorded Time 30584 Substance with sulfonami de structure and antibacte rial mechanism of action (substanc e) medicatio n itching nausea rash Not available Not available Not available Not available 06/14/2024 57921 8003 SNOMED [employer] 10:17:19 Medications Name Sig Start Date [...] Not Available Vitals Date Recorded Body height Heart rate Body temperature Oxygen saturation Oxygen saturation in Arterial blood by Pulse oximetry Systolic And Diastolic Systolic And Diastolic Provider Name and Address Organization Details Last Updated DateTime 5 162.56 cm 84 /min 98.2 [degF] 92 % 92 % 88/52 mm[Hg] 90/53 mm[Hg] Mirtha Payne [employer] 5 11:11:16 Social History Question Answer Notes LastModified by Organizat ion Details LastModified Time Tobacco Smoking Status Never Smoker Cherie Vice jody, [employer] 06/14/2024 10:17:20 Do You Have An Advance [...] Information not available 06/14/2024 What Type Of Agency Service Coordinator Do You Use? None Information not available [...] Or The Highest Degree You Have Received? DQ89224-3 Information not available 06/14/2024 Have There Been Any Changes To Your Family Or Social Situation? No Information no t available 06/14/2024 Are There Any Guns Present In Your Home? No Information not available 06/14/2024 Which Of Your Hands Is Dominant? Right Information not available 06/14/2024 What Is Your Home Situation? Other Information not available 06/14/2024 Do You Have A Medical Power Of Metal Cut Off Saw Operator? No Information not available 06/14/2024 What Was The Date Of Your Most Recent Tobacco Screening? 05/06/2025 [email or web address] Information not available 05/06/2025 Do You Have [...] anxious, or unable to sleep at night)? [id number] Information not available 08/12/2024 Do you have [...] Lung Disease N COPD N Depression Y Hypothyroidism N Dermatologic Disorders N Defects or Inherited Disease N Developmental or Behavioral Disorders N Breast Problem N Difficulty Swallowing N Anesthesia Complications N History of STI N Anxiety Disorder Y Meniere's disease N Autoimmune disease N Muscle, Joint, or Bone Problems N Obesity Y Vision or Eye Problems N Arthritis Y Infertility N Polyps N Mental Disorder N Congenital Anomalies N Acid Reflux (GERD) N Cancer N Stroke N Neurologic/Epilepsy N Endometriosis N Bladder or Kidney Problems Y High Cholesterol Y Liver Disease N Organ Transplant N Psychiatric/Mental Health Condition N Dialysis N Schizophrenia N Headaches N Fibromyalgia N Kidney Disease N Allergies/Hayfever N Heart [...] mL dose 09/08/2021 completed Cherie Vice null, [employer] 08/12/2024 14:57:31 COVID-19, mRNA, LNP-S, PF, 30 mcg/0.3 mL dose 08/11/2021 completed Cherie Vice null, [employer] 08/12/2024 14:57:31 COVID-19, mRNA, LNP-S, PF, 30 mcg/0.3 mL dose, jayce-sucrose 03/28/2022 completed Cherie Vice null, [employer] 08/12/2024 14:57:31 tetanus toxoid, adsorbed 11/09/2009 completed Cherie Vice null, [employer] 08/12/2024 14:57:31 Hep A-Hep B 01/25/2024 completed Cherie Vice null, [employer] 08/12/2024 14:57:31 Hep A-Hep B 04/24/2024 completed Cherie Vice null, [employer] 08/12/2024 14:57:31 Past Encounters Encounter ID Performer Location Encounter Start Date Encounter Closed Date Diagnosis/Indication Diagnosis SNOMED-CT Code Diagnosis ICD10 Code Diagnosis IMO Codes Diagnosis Note [id number] ROSIE Mena [facility] [address] [place] [address] 05/06/2025 10:41:05 05/06/2025 11:45:49 Body mass index 40+ - severely obese 086482679 Z68.42 686801 Screening mammography 24 042288 Z12.31 0669563698 Screening for malignant neoplasm of colon 509019459 Z12.11 648134 Amnesia 42908449 R41.3 30736 Vertigo 587038742 R42 04600 Low blood pressure 63602 003 I95.9 5928916370 Decrease Entresto, Bumex and spironolac tone by 1/2 until she is able to see cardiology Closed fra cture of left wrist 7016600495 7814026 S62.102A [id number] Health Concerns Section Related Observation LastModified by Organization Detai ls LastModified Time None Recorded Concern Status LastModified by Organization Details LastModified Time None Recorded Payers Encounter Date Sequence Insurance Name Policy Number Policy Jonas Covered Member ID Jonas Member ID Guarantor Name 05/06/2025 1 [facility] (MEDICAID HMO) Lesia Doran [id number] Lesia Doran Notes Date Note Type Note Provider Name and Address Organization Details Recorded Time 05/06/2025 text/html ROS as noted in the HPI Patient presents requesting referral to neurology. States that she has been dizzy, had memore loss, brain fog, forgetfulness.Blo od pressure is low today. She used to have HTN. She has CHF. Had ARF last winter. States she has been drinking Gatorade.Has fallen several times. Has a fracture of the left wrist currently. ROSIE Mena [address] [place] [address], [phone], [facility] 05/06/2025 15:38:58 OBGyn Episode No OBEpisode recorded.
[2025-06-25 10:11] LABS: Hematocrit 33.3 % (37.0-47.0); Hemoglobin 10.4 g/dL (12.2-16.2); Immature Granulocytes % 0.2 %; Mean Corpuscular HGB Conc 31.2 g/dL (31.8-35.4); Mean Corpuscular Hemoglobin 30.3 pg (27.0-31.2); Mean Corpuscular Volume 97.1 fl (81-99); Nucleated Red Blood Cells % 0 %; Platelet Count 322 K/mm3 (142-424); Red Blood Count 3.43 M/mm3 (4.20-5.40); Red Cell Distribution Width-SD 48.7 fL; White Blood Count 5.1 K/mm3 (4.8-10.8)
[2025-06-25 11:15] LABS: Alanine Aminotransferase 14 U/L (12-78); Albumin Level 4.2 g/dl (3.5-5.0); Alkaline Phosphatase 100 U/L (38-126); Anion Gap 16.1 mEq/L (5-15); Aspartate Amino Transferase 26 U/L (14-36); Bilirubin,Direct 0.3 mg/dl (0.0-0.4); Bilirubin,Indirect 0.2 mg/dL (0.0-0.9); Bilirubin,Total 0.5 mg/dl (0.2-1.3); Bilirubin,Unconjugated 0.2 mg/dL (0.0-1.1); Blood Urea Nitrogen 19 mg/dl (7-17); Calcium 9.1 mg/dl (8.4-10.2); Carbon Dioxide 32 mmol/L (22.0-30.0); Chloride 93 mmol/L (98-107); Cholesterol 145 mg/dl (140-200); Creatinine,Serum 1.20 mg/dl (0.52-1.04); Estimated Glomerular Filt Rate 46 ml/min (>60); GFR (African American) 56 ML/MIN (>60); Glucose 117 mg/dl (74-100); HDL Cholesterol 61 mg/dl (40-60); Magnesium 1.3 mg/dl (1.6-2.3); Potassium 3.1 mmoL/L (3.5-5.1); Sodium 138 mmol/L (136-145); Total Protein,Serum 7.6 g/dl (6.3-8.2); Triglycerides 108 mg/dl (30-150)
[2025-06-25 11:29] LABS: Free T4 (Free Thyroxine) 1.90 ng/dl (0.78-2.19)
[2025-06-25 11:43] LABS: Thyroid Stimulating Hormone 7.12 uIU/mL (0.465-4.68)
== END 2025-06-25 23:59 | disposition home or self-care (01) ==
LOC: LAB 09:24
PROVIDERS: PCP Physician Assistant; Visit Provider Physician Assistant
DX: I25.10 Atherosclerotic heart disease of native coronary artery without angina pectoris (principal); E78.5 Hyperlipidemia, unspecified; I11.9 Hypertensive heart disease without heart failure
CPT/HCPCS: 36415; 80048; 80061; 80076; 83735; 84439; 84443; 85025

== ENCOUNTER 2025-07-03 13:41 | Outpatient (CLI) | payer OTHER, SELFPAY ==
--- OUTSIDE RECORDS SUMMARY | 2025-07-03 13:43 | XMS_ITS | Clinical Summary ---
Author Organization [facility] Address [address] [place] [address] Care Team Providers Care Project Technician Name Role Phone Janice Fitzpatrick Primary Care Provider [phone] Allergies Active Allergy Reactions Criticality Noted Date [...] 3 Active vitamin D (ERGOCALCIFEROL) 1.25 MG (19528 UT) capsule capsule 3 Active buprenorphine-na loxone [...] C SCREENING 12/02/2022 INFLUENZA VACCINE 03/21/2025 Insurance [facility] [employer] [facility] Care Teams Project Technician Relationship Specialty Start Date End Date Janice Fitzpatrick PA PCP - General Physician Green Building Design Specialist 12/02/22
--- OUTSIDE RECORDS SUMMARY | 2025-07-03 13:43 | XMS_ITS | Encounter Summary ---
Author Organization [facility] Address [address] [place] [address] Care Team Providers Care Filling And Packing Supervisor Name Role Phone Janice Fitzpatrick Primary Care Provider [phone] Reason for Referral * Consultation (Routine) - Closed Specialty Diagnoses / Procedures Referred By Jaylin jimenez Referred To Contact Vascular Surgery Diagnoses Hepatic artery aneurysm Janice Fitzpatrick PA [address] [place] [address] Phone: tel: fax: Vascular Surgery [address] [place] [address] Phone: tel: Referral ID Status Reason Start Date Expiration Date V isits Requested Visits Authorized [id number] Closed Specialty Services Required 01/26/2022 07/28/2023 1 1 Encounter Details Date Type Department Care Team (Late st Contact Info) Description 01/26/2022 Community Orders Community Practice [address] [place] [address] Janice Fitzpatrick PA [address] [place] [address] Hepatic artery aneurysm (CMS/HCC) (Primary [...] documented as of this encounter Care Teams Filling And Packing Supervisor Relationship Specialty Start Date End Date Janice Fitzpatrick PA [address] [place] [address] PCP - General 12/20/21 documented as of this encounter
--- OUTSIDE RECORDS SUMMARY | 2025-07-03 13:43 | XMS_ITS | Encounter Summary ---
Author Organization [facility] Address [address] [place] [address] Care Team Providers Care Chair Lift Operator Name Role Phone Janice Fitzpatrick Primary Care Provider [phone] Encounter Details Date Type Department Care Team ([facility] st Contact Info) Description 12/31/2021 Community [facility] Community Practice [address] [place] [address] Janice Fitzpatrick PA [address] [place], [place] [id number] Aneurysm of splenic artery (CMS/HCC) (Primary Dx) [...] documented as of this encounter Care Teams Chair Lift Operator Relationship Specialty Start Date End Date Janice Fitzpatrick PA [address] [place] [address] PCP - General 12/20/21 documented as of this encounter
--- OUTSIDE RECORDS SUMMARY | 2025-07-03 13:43 | XMS_ITS | Clinical Summary ---
Author Organization [facility] Address [address] [place] [address] Care Team Providers Care Photonics Engineering Technician Name Role Phone Janice Fitzpatrick Primary Care Provider [phone] Allergies Active Allergy Reactions Criticality Noted Date [...] place to sleep or slept in a halfway (including now)? No 01/17/2024 CAGE ASSESSMENT Answer [...] drink first t nelli in the morning (EYE-CARPENTER) to steady your nerves or to get [...] B Twinrix 3-dose series) 09/24/2024 04/24/2024, 01/25/2024 [id number] Vaccine ( - season) 2025 03/28/2022, 09/08/2021, [...] Non Reactive 01/23/2024 11:29 AM EDT [facility] Comment:Screening for HIV 1 & 2 antibodies, and P24 antigen is NONREACTIVE. No confirmatory testing is required. Blood Venous blood specimen / Unknown Venipuncture / Unknown 01/23/2024 10:51 AM EDT 01/23/2024 10:57 AM EDT Sary Dawson MD LAB BLOOD ORDERABLES Final R esult Performing Organization Address City/[facility] Co de Phone Number [facility] [address] [place] [address] * Hepatitis C Antibody (01/23/2024 10:51 AM EDT) Hepatitis C Antibody Negative Negative 01/23/2024 11:25 AM EDT [facility] Blood Venous blood specimen / Unknown Venipuncture / Unknown 01/23/2024 10:51 AM EDT 01/23/2024 10:57 AM EDT us Sary Dawson MD LAB BLOOD ORDERABLES Final R esult Performing Organization Address City/[facility]/ZIP Co de Phone Number [facility] [address] [place] [address] * (ABNORMAL) Hemoglobin A1c (01/17/2024 4:06 AM [...] Adults <6.0% Children and Adolescents <7.5% Source: [place] [employer]. Standards of medical care in diabetes,2017. Diabetes Care.2017:40 (suppl 1):S1-S135. HbA1c assay performed by an ion-exchange chromatography method that is certified traceable to the DCCT. us Marc Weinberg MD LAB BLOOD ORDERABLES Final Result [facility] [address] [place] [address] from Last 3 Months or Most Recently Relevant to Health Maintenance Insurance [facility] MEDICAID Advance Directives * Full Code [...] Patient has decision-making capacity? Yes Care Teams Photonics Engineering Technician Relationship Specialty Start Date End Date Janice Fitzpatrick PA [address] [place] [address] PCP - General 12/20/21
--- OUTSIDE RECORDS SUMMARY | 2025-07-03 13:43 | XMS_ITS | Encounter Summary ---
Author Organization Healthcare Address [address] [place] [address] Care Team Providers Care Flat Surfacer Name Role Phone Marko Norton MD Primary Care Provider [phone] Janice Fitzpatrick Primary Care Provider [phone] Encounter Details Date Type Department Care Team ([facility] st Contact Info) Description 12/17/2021 Orders Only External Location [address] [place] [address] Provider, External Social History Tobacco Use Types [...] documented as of this encounter Care Teams Flat Surfacer Relationship Specialty Start Date End Date Marko Norton MD [address] [place] [address] PCP - General 01/01/21 12/19/21 Janice Fitzpatrick PA [address] [place] [address] PCP - General 12/20/21 documented as of this encounter
--- OUTSIDE RECORDS SUMMARY | 2025-07-03 13:44 | XMS_ITS | Continuity of Care Document ---
Author Organization [facility] ([facility] [employer] [facility] Address [address] [place] [address] Assessment No assessment recorded. Plan of Treatment Reminders Order Date Submit Date Provider Last Modified By Organization Details Last Modified Time Details Appointments None recorded. Lab lipid panel, serum 2024 025 [facility] ([place]), [address] [place], [address], 5 09:11:41 CMP, serum or plasma 2024 025 PRANEETH [facility] ([place] [address] [place], [address], 5 09:11:41 CBC w/ auto diff 2024 025 PRANEETH [facility] ([place] [address] [place], [address], 5 09:11:40 vitamin D, 25-hydroxy, total, serum 2024 025 PRANEETH [facility] ([place]), [address] [place], [address], 5 09:11:42 TSH, ultra-sensi tive, serum 2024 025 [facility] [address] [place], [address], 5 09:11:42 Referral neurologist referral 2024 025 [email or web address] Polly Duong MD, [address], [place], [address], 5 10:45:44 cardiologis t referral 2024 025 [facility], [address], [place], [address], 15:26:43 Procedures colonoscopy screening (PROC) 2024 025 [id number] Karlos Draper MD, [address], [place], [address], 5 15:52:41 Surgeries None recorded. Imaging CT, head + brain, w/o contrast [address] Centralized Scheduling, [address] [place], [address], 13:27:13 MAMMO, screening, digital, bilateral [address] Centralized Scheduling, [address] [place], [address], 14:38:18 DEXA [address] (X-Ray), [address] [place] [address] [address], [place], [address], 5 10:30:32 Medication Orders None recorded. Patient TargetsNo targets recorded. Patient Instructions Encounter Date Encounter Id Patient Instructions Last Modified By Organization Details Last Modified Time 05/06/2025 [id number] mammogram: about this test Not available 05/06/2025 11:35:54 body mass index: care instructions [email or web address] Not available 05/06/2025 11:35:54 learning about healthy weight [email or web address] Not available 05/06/2025 11:35:54 low blood pressure: care instructions Not available 05/06/2025 11:38:46 Reason for Referral Neurologist Referral for Amn esia Referring Physician: [facility], Encounter Date: 05/06/2025 Rolling 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 Referring Physician: [facility], Encounter Date: 05/06/2025 Results Created Date Observation Date Name Description Value Unit Range Abnormal Flag Note LastModifiedBy Organization Detail LastModifiedTime 05/06/2005/07/2025 CBC WITH DIFFE RENTI AL/PL ATELE T WBC 5.0 x10e3 /uL 3.4-10 .8 normal Not Available [facility] ([facility]) [address] [place], [address], 05/07/2025 09:11:40 05/06/20 25 05/07/2025 CBC WITH DIFFE RENTI AL/PL ATELE T RBC 2.99 x10e6 /uL 3.77-5 .28 below low normal Not Available [facility] ([facility]) [address] [place], [address], 05/07/2025 09:11:40 05/06/20 25 05/07/2025 CBC WITH DIFFE RENTI AL/PL ATELE T hemoglobin 9.4 g/dL 11.1-1 5.9 below low normal Not Available [facility] ([facility]) [address] [place], [address], 05/07/2025 09:11:40 05/06/20 25 05/07/2025 CBC WITH DIFFE RENTI AL/PL ATELE T hematocrit 29.9 % 34.0-4 6.6 below low normal Not Available [facility] ([facility]) [address] [place], [address], 05/07/2025 09:11:40 05/06/20 25 05/07/2025 CBC WITH DIFFE RENTI AL/PL ATELE T MCV 100 fL 79-97 above high normal Not Available [facility] ([facility]) [address] [facility], [place], [address], 05/07/2025 09:11:40 05/06/20 25 05/07/2025 CBC WITH DIFFE RENTI AL/PL ATELE T MCH 31.4 pg 26.6-3 3.0 normal Not Available [facility] ([facility]) [address] [facility], [place], [address], 05/07/2025 09:11:40 05/06/20 25 05/07/2025 CBC WITH DIFFE RENTI AL/PL ATELE T MCHC 31.4 g/dL 31.5-3 5.7 below low normal Not Available [facility] ([facility]) [address] [facility], [place], [address], 05/07/2025 09:11:40 05/06/20 25 05/07/2025 CBC WITH DIFFE RENTI AL/PL ATELE T RDW 13.9 % 11.7-1 5.4 Not Available [facility] ([facility]) [address] [facility], [place], [address], 05/07/2025 09:11:40 05/06/20 25 05/07/2025 CBC WITH DIFFE RENTI AL/PL ATELE T platelets 313 x10e3 /uL 150-45 0 normal Not Available [facility] ([facility]) [address] [place], [address], 05/07/2025 09:11:40 05/06/2005/07/2025 CBC WITH DIFFE RENTI AL/PL ATELE T neutrophils 68 % not estab. normal Not Available [facility] ([facility]) [address] [place], [address], 05/07/2025 09:11:40 05/06/20 25 05/07/2025 CBC WITH DIFFE RENTI AL/PL ATELE T lymphs 18 % not estab. normal Not Available [facility] ([facility]) [address] [place], [address], 05/07/2025 09:11:40 05/06/20 25 05/07/2025 CBC WITH DIFFE RENTI AL/PL ATELE T monocytes 10 % not estab. normal Not Available [facility] ([facility]) [address] [facility], [place], [address], 05/07/2025 09:11:40 05/06/20 25 05/07/2025 CBC WITH DIFFE RENTI AL/PL ATELE T eos 4 % not estab. normal Not Available [facility] ([facility]) [address] [place], [address], 05/07/2025 09:11:40 05/06/20 25 05/07/2025 CBC WITH DIFFE RENTI AL/PL ATELE T basos 0 % not estab. normal Not Available [facility] ([facility]) [address] [place], [address], 05/07/2025 09:11:40 05/06/20 25 05/07/2025 CBC WITH DIFFE RENTI AL/PL ATELE T immature cells MOLD CHECKER Not Available [facility] ([facility]) [address] [place], [address], 05/07/2025 09:11:40 05/06/20 25 05/07/2025 CBC WITH DIFFE RENTI AL/PL ATELE T neutrophils (absolute) 3.4 x10e3 /uL 1.4-7. 0 normal Not Available [facility] ([facility]) [address] [place], [address], 05/07/2025 09:11:40 05/06/20 25 05/07/2025 CBC WITH DIFFE RENTI AL/PL ATELE T lymphs (absolute) 0.9 x10e3 /uL 0.7-3. 1 normal Not Available [facility] ([facility]) [address] [place], [address], 05/07/2025 09:11:40 05/06/20 25 05/07/2025 CBC WITH DIFFE RENTI AL/PL ATELE T monocytes(ab solute) 0.5 x10e3 /uL 0.1-0. 9 normal Not Available [facility] ([facility]) [address] [facility], [place], [address], 05/07/2025 09:11:40 05/06/20 25 05/07/2025 CBC WITH DIFFE RENTI AL/PL ATELE T eos (absolute) 0.2 x10e3 /uL 0.0-0. 4 normal Not Available [facility] ([facility]) [address] [place], [address], 05/07/2025 09:11:40 05/06/20 25 05/07/2025 CBC WITH DIFFE RENTI AL/PL ATELE T baso (absolute) 0.0 x10e3 /uL 0.0-0. 2 normal Not Available [facility] ([facility]) [address] [facility], [place], [address], 05/07/2025 09:11:40 05/06/20 25 05/07/2025 CBC WITH DIFFE RENTI AL/PL ATELE T immature granulocytes 0 % not estab. Not Available [facility] ([facility]) [address] [place], [address], 05/07/2025 09:11:40 05/06/20 25 05/07/2025 CBC WITH DIFFE RENTI AL/PL ATELE T immature grans (abs) 0.0 x10e3 /uL 0.0-0. 1 Not Available [facility] ([facility]) [address] [place], [address], 05/07/2025 09:11:40 05/06/20 25 05/07/2025 CBC WITH DIFFE RENTI AL/PL ATELE T NRBC MOLD CHECKER Not Available [facility] ([facility]) [address] [place], [address], 05/07/2025 09:11:40 05/06/20 25 05/07/2025 CBC WITH DIFFE WENDY AL/PL WALTER T hematology comments: MOLD CHECKER Not Available [facility] ([facility]) [address] [facility], [place], [address], 05/07/2025 09:11:40 05/06/20 25 05/07/2025 COMP. METAB OLIC PANEL (14) glucose 107 mg/dL 70-99 above high normal Not Available [facility] ([facility]) [address] [place], [address], 05/07/2025 09:11:41 05/06/20 25 05/07/2025 COMP. METAB OLIC PANEL (14) BUN 30 mg/dL 6-24 above high normal Not Available [facility] ([facility]) [address] [place], [address], 05/07/2025 09:11:41 05/06/20 25 05/07/2025 COMP. METAB OLIC PANEL (14) creatinine 1.44 mg/dL 0.57-1 .00 above high normal Not Available [facility] ([facility]) [address] [place], [address], 05/07/2025 09:11:41 05/06/20 25 05/07/2025 COMP. METAB OLIC PANEL (14) eGFR 43 mL/mi n/1.7 3 >59 below low normal Not Available [facility] ([facility]) [address] [place], [address], 05/07/2025 09:11:41 05/06/20 25 05/07/2025 COMP. METAB OLIC PANEL (14) BUN/creatini ne ratio 21 9-23 normal Not Available [facility] ([facility]) [address] [place], [address], 05/07/2025 09:11:41 05/06/20 25 05/07/2025 COMP. METAB OLIC PANEL (14) sodium 139 mmol/ L 134-14 4 normal Not Available [facility] ([facility]) [address] [place], [address], 05/07/2025 09:11:41 05/06/20 25 05/07/2025 COMP. METAB OLIC PANEL (14) potassium 4.0 mmol/ L 3.5-5. 2 normal Not Available [facility] ([facility]) [address] [place], [address], 05/07/2025 09:11:41 05/06/20 25 05/07/2025 COMP. METAB OLIC PANEL (14) chloride 99 mmol/ L 96-106 normal Not Available [facility] ([facility]) [address] [place], [address], 05/07/2025 09:11:41 05/06/20 25 05/07/2025 COMP. METAB OLIC PANEL (14) carbon dioxide, total 20 mmol/ L 20-29 normal Not Available [facility] ([facility]) [address] [place], [address], 05/07/2025 09:11:41 05/06/20 25 05/07/2025 COMP. METAB OLIC PANEL (14) calcium 9.0 mg/dL 8.7-10 .2 normal Not Available [facility] ([facility]) [address] [place], [address], 05/07/2025 09:11:41 05/06/20 25 05/07/2025 COMP. METAB OLIC PANEL (14) protein, total 6.6 g/dL 6.0-8. 5 normal Not Available [facility] ([facility]) [address] [place], [address], 05/07/2025 09:11:41 05/06/20 25 05/07/2025 COMP. METAB OLIC PANEL (14) albumin 3.8 g/dL 3.8-4. 9 normal Not Available [facility] ([facility]) [address] [place], [address], 05/07/2025 09:11:41 05/06/20 25 05/07/2025 COMP. METAB OLIC PANEL (14) globulin, total 2.8 g/dL 1.5-4. 5 Not Available [facility] ([facility]) [address] [place], [address], 05/07/2025 09:11:41 05/06/2005/07/2025 COMP. METAB OLIC PANEL (14) bilirubin, total 0.3 mg/dL 0.0-1. 2 normal Not Available [facility] ([facility]) [address] [place], [address], 05/07/2025 09:11:41 05/06/20 25 05/07/2025 COMP. METAB OLIC PANEL (14) alkaline phosphatase 99 IU/L 49-135 normal Ple ase note refer ence inter myra coe e Not Available [facility] ([facility]) [address] [place], [address], 05/07/2025 09:11:41 05/06/20 25 05/07/2025 COMP. METAB OLIC PANEL (14) AST (SGOT) 18 IU/L 0-40 normal Not Available [facility] ([facility]) [address] [place], [address], 05/07/2025 09:11:41 05/06/2005/07/2025 COMP. METAB OLIC PANEL (14) ALT (SGPT) 12 IU/L 0-32 normal Not Available [facility] ([facility]) [address] [place], [address], 05/07/2025 09:11:41 05/06/20 25 05/07/2025 LIPID PANEL cholesterol, total 167 mg/dL 100-19 9 normal Not Available [facility] ([facility]) [address] [place], [address], 05/07/2025 09:11:41 05/06/20 25 05/07/2025 LIPID PANEL triglyceride s 137 mg/dL 0-149 normal Not Available [facility] ([facility]) [address] [facility], [place], [address], 05/07/2025 09:11:41 05/06/20 25 05/07/2025 LIPID PANEL HDL cholesterol 55 mg/dL >39 normal Not Available [facility] ([facility]) [address] [place], [address], 05/07/2025 09:11:41 05/06/20 25 05/07/2025 LIPID PANEL VLDL cholesterol venkatesh 24 mg/dL 5-40 Not Available [facility] ([facility]) [address] [facility], [place], [address], 05/07/2025 09:11:41 05/06/20 25 05/07/2025 LIPID PANEL LDL chol calc ([facility]) 88 mg/dL 0-99 Not Available [facility] ([facility]) [address] [place], [address], 05/07/2025 09:11:41 05/06/20 25 05/07/2025 LIPID PANEL LDL calc comment: MOLD CHECKER Not Available [facility] ([facility]) [address] [facility], [place], [address], 05/07/2025 09:11:41 05/06/2005/07/2025 TSH TSH 2.740 uIU/m L 0.450- 4.500 normal Not Available [facility] ([facility]) [address] [place], [address], 05/07/2025 09:11:42 05/06/20 25 05/07/2025 VITAM IN [...] um and D. Sarmad loredo [place]: [facility] . 2. Ross willson [place], Mulugeta martinez [place], Max off-F errar i GOMEZ, et al. Evalu ation , treat ment, and preve ntion of vitam in D defic iency : an Endoc rine Socie ty clini venkatesh pract ice guide line. JCEM. 2010; 96(7) :1911 -30. Not Available [facility] ([facility]) [address], [place], [address], 05/07/2025 09:11:42 04/15/2004/15/2025 XR, forea rm, 2 view No observ ation record ed. [address], [place], [address], 04/16/2025 08:45:33 04/15/2004/15/2025 XR, hand, 3 or more view No observ ation record ed. [address], [place], [address], 04/16/2025 08:45:05 04/15/20 25 04/15/2025 XR, wrist No observ ation record ed. [address], [place], [address], 04/16/2025 08:44:41 Result Notes None recorded. Problems Name Problem SNOMED Code Status Onset Date Resolution Date Notes Provider Name and Address Organization Details Recorded Time Depressiv e disorder 69428192 Active 2023 ROSIE Mena [address] [place] [address], [phone], [employer] 10:29:07 Osteoarth ritis 688066335 Active 2023 ROSIE Mena [address] [place] [address], [address], [employer] 10:29:00 Gout 29752932 Active 2023 ROSIE Mena [address] [place] [address], [address], [employer] 10:29:01 Acute kidney injury 62724292 Active 2023 ROSIE Mena [address] [place] [address], [address] 8, [employer] 10:29:05 Serum creatinin e above reference range 116946522 Active 2023 ROSIE Mena [address] [place] [address], [address] 8, [employer] 10:28:58 Congestiv e heart failure 78611791 Active 2023 ROSIE Mena [address] [place] [address], [address] 8, [employer] 10:28:50 Essential hypertens ion 49354251 Active 2023 ROSIE Mena [address] [place] [address], [address] 8, [employer] 5 10:29:09 Acute bronchiti s 25102643 Completed 202309/16/2024 ROSIE Mena [address] [place] [address], [address] 8, [employer] 5 10:28:53 Chronic kidney disease 801881481 Active 2024 Janice ROSIE Fitzpatrick [address] [place] [address], [address] 8, [employer] 5 17:12:34 Heart murmur 55576547 Active 2024 Janice ROSIE Fitzpatrick [address] [place] [address], [address] 8, [employer] 5 08:41:01 Low blood pressure 20896071 Active 2024 Janice ROSIE Fitzpatrick [address] [place] [address], [address] 8, [employer] 11:36:44 Closed fracture of left wrist 278611170844 70168 Active 2024 Janice ROSIE Fitzpatrick [address] [place] [address], [address] 8, [employer] 11:36:55 Problem Notes None recorded. Procedures Surgical History Date Name Laterality Status Provider Name and Address Organization Details Recorded Time 12/17/19 22 Date of Last Pap Smear completed [employer] 09/16/2024 10:31:23 Joint Replacement completed [employer] 06/14/2024 10:17:21 Tonsillectomy completed [employer] 06/14/2024 10:17:21 Cardiac Surgery completed [employer] 06/14/2024 10:17:21 Gallbladder Surgery completed [employer]. 06/14/2024 10:17:21 Imaging Results None recorded. Procedure Notes None recorded. Medical Equipment None Reported. Allergies Allergen ID Allergen Name Allergen Category Reaction Reaction Severity Criticality Documentation Date Start Date Code Code System Note Provider Name and Address Organization Details Recorded Time 07792 Substance with sulfonami de structure and antibacte rial mechanism of action (substanc e) medicatio n itching nausea rash Not available Not available Not available Not available 06/14/2024 54095 8003 SNOMED [employer] 10:17:19 Medications Name Sig Start Date [...] % 88/52 mm[Hg] 90/53 mm[Hg] Mirtha Payne [employer] 5 11:11:16 Social History Question Answer Notes LastModified by Organizat ion Details LastModified Time Tobacco Smoking Status Never Smoker Cherie Vice jody, [employer] 06/14/2024 10:17:20 Do You Have An [...] Information not available 06/14/2024 What Type Of Cloth Printer Do You Use? None Information not available [...] Or The Highest Degree You Have Received? [id number] Information not available 06/14/2024 Have There Been Any Changes To Your Family Or Social Situation? No Information no t available 06/14/2024 Are There Any Guns Present In Your Home? No Information not available 06/14/2024 Which Of Your Hands Is Dominant? Right Information not available 06/14/2024 What Is Your Home Situation? Other Information not available 06/14/2024 Do You Have A Medical Power Of Plastics Design Engineer? No Information not available 06/14/2024 What Was The Date Of Your Most Recent Tobacco Screening? 05/06/2025 [email or web address] Information not available 05/06/2025 Do You Have [...] anxious, or unable to sleep at night)? [id number] Information not available 08/12/2024 Do you have [...] Stones N Blood Diseases N Hyperthyroidism N Blood Transfusion N Breast Cancer N Emergency room visit since last appointm ent. N COPD N Depression Y Dermatologic Disorders N Hypothyroidism N Lung Disease N Developmental or Behavioral Disorders N Defects or Inherited Disease N Breast Problem N Difficulty Swallowing N [...] Organ Transplant N Psychiatric/Mental Health Condition N Fibromyalgia N Headaches N Dialysis N Schizophrenia N Kidney Disease N Allergies/Hayfever N Heart [...] mL dose 09/08/2021 completed Cherie Vice null, [employer] 08/12/2024 14:57:31 COVID-19, mRNA, LNP-S, PF, 30 mcg/0.3 mL dose 08/11/2021 completed Cherie Vice null, [employer] 08/12/2024 14:57:31 COVID-19, mRNA, LNP-S, PF, 30 mcg/0.3 mL dose, jayce-sucrose 03/28/2022 completed Cherie Vice null, [employer] 08/12/2024 14:57:31 tetanus toxoid, adsorbed 11/09/2009 completed Cherie Vice null, [employer] 08/12/2024 14:57:31 Hep A-Hep B 01/25/2024 completed Cherie Vice null, [employer] 08/12/2024 14:57:31 Hep A-Hep B 04/24/2024 completed Cherie Vice null, [employer] 08/12/2024 14:57:31 Past Encounters Encounter ID Performer Location Encounter Start Date Encounter Closed Date Diagnosis/Indication Diagnosis SNOMED-CT Code Diagnosis ICD10 Code Diagnosis IMO Codes Diagnosis Note [id number] ROSIE Mena [facility] [address] [place] [address] 05/06/2025 10:41:05 05/06/2025 11:45:49 Body mass index 40+ - severely obese 319215587 Z68.42 988463 Screening mammography 24 717689 Z12.31 [id number] Screening for malignant neoplasm of colon 312769460 Z12.11 378383 Amnesia 63440724 R41.3 56751 Vertigo 176716066 R42 77209 Low blood pressure 66070 003 I95.9 2568340084 Decrease Entresto, Bumex and spironolac tone by 1/2 until she is able to see cardiology Closed fra cture of left wrist 3217889100 1862532 S62.102A [id number] Health Concerns Section Related Observation LastModified by Organization Detai ls LastModified Time None Recorded Concern Status LastModified by Organization Details LastModified Time None Recorded Payers Encounter Date Sequence Insurance Name Policy Number Policy Jonas Covered Member ID Jonas Member ID Guarantor Name 05/06/2025 1 [facility] Lesia Doran [id number] Lesia Doran Notes Date Note Type Note [...] of the left wrist currently. ROSIE Mena [address] [place] [address], [phone], [facility] [employer] 05/06/2025 15:38:58 OBGyn Episode No OBEpisode recorded.
--- OUTSIDE RECORDS SUMMARY | 2025-07-03 13:44 | XMS_ITS | Data Portability ---
Author Organization [employer] [facility] - [facility] Address [address] [place] [address] Assessment No assessment recorded. Plan of Treatment Reminders Order Date Submit Date Provider Last Modified By Organization Details Last Modified Time Details Appointments None recorded. Lab lipid panel, serum 2024 025 [facility] [address] [place], [address], 5 09:11:41 CMP, serum or plasma 2024 025 [facility] [address] [place], [address], 5 09:11:41 CBC w/ auto diff 2024 025 [place] [facility] [address] [place], [address], 5 09:11:40 vitamin D, 25-hydroxy, total, serum 2024 025 [facility] [address] [place], [address], 5 09:11:42 TSH, ultra-sensi tive, serum 2024 025 [facility] [address] [place], [address], 5 09:11:42 CBC w/ auto diff [email or web address] [place] [address] (Lab Registration) , [address] , [place], [address], 5 13:14:37 BMP, serum or plasma [address] (Lab Registration) , [address] [place], [address], 5 13:14:37 BMP, serum or plasma 2024 025 [place] [facility] [address] [facility], [place], [address], 5 12:08:08 rapid flu (A+B) [address] [facility], [address] [facility], [place], [address], 4 16:19:25 rapid SARS CoV 2 Ag, QL, IA, upper respiratory specimen [address] [facility], [address] [facility], [place], [address], 4 16:19:14 Referral neurologist referral 2024 025 [email or web address] Duong MD, [address], [place], [address], 5 10:45:44 cardiologis t referral 2024 025 [facility], [address], [place], [address], 5 15:26:43 Procedures colonoscopy screening (PROC) 2024 025 [id number] Karlos Draper MD, [address], [place], [address], 15:52:41 electrocard iogram, routine ECG, 12 leads min; interpretat ion and report (PROC) 2024 025 [facility], [address] [place], [address], 5 11:45:27 stress echocardiog treva (PROC) [address] (Scheduling), [address], [place], [address], 5 12:24:47 colonoscopy screening (PROC) [address] [place] [address] Karlos Draper MD, [address], [place], [address], 11:27:50 Surgeries None recorded. Imaging CT, head + brain, w/o contrast [address] [place] [address] Centralized Scheduling, [address], [address], 13:27:13 MAMMO, screening, digital, bilateral [address] [place] [address] Centralized Scheduling, [address], [address], 14:38:18 DEXA [address] [place] [address] (X-Ray), [address], [place], [place], [address], 5 10:30:32 XR, lumbar spine - fall, LBP, left hip pain s/p right hip replacement [address] (Scheduling), [address], [place], [address], 17:43:44 XR, hip + pelvis, bilateral - fall, lbp, hip pain, s/p right hip replacement 2024 025 [facility] [place] [facility] (Scheduling), [address], [place], [address], 5 17:12:02 MAMMO, screening, bilateral - first available appt [email or web address] [place] [address] (Scheduling), [address], [place], [address], 4 11:56:00 Medication Orders Zithromax Z-Russel 250 mg tablet 2023 025 [facility], [address] [place] [address] [place], [id number], 5 10:30:20 prednisone 20 mg tablet 2023 025 [facility], [address] [place] [address], [place], [id number], 5 10:30:00 albuterol sulfate HFA 90 mcg/actuati on aerosol inhaler 2023 024 [facility], [address] [place] [address] [place], [place], [id number], 4 15:21:02 torsemide 100 mg tablet [email or web address] [facility] [address] [facility], [address] [place] [address], [place], [id number], 5 11:18:34 diclofenac 1 % topical gel 2023 024 [facility], [address] [place] [address] [place], [place], [id number], 4 15:20:50 Entresto 24 mg-26 mg tablet 2023 024 PRANEETH [place] [facility], [address] [place], [id number], 13:46:17 Patient TargetsNo targets recorded. Patient Instructions Encounter Date Encounter Id Patient Instructions Last Modified By Organization Details Last Modified Time 06/14/2024 [id number] mammogram: about this test [email or web address] Not available 06/14/2024 11:23:37 08/12/2024 [id number] cough: care instructions Not available 08/12/2024 15:06:27 bronchitis: care instructions [email or web address] Not available 08/12/2024 15:19:12 heart failure: care instructions Not available 08/12/2024 15:19:12 learning about heart failure [email or web address] Not available 08/12/2024 15:19:13 09/16/2024 [id number] heart failure: care instructions [email or web address] Not available 09/16/2024 15:45:25 learning about heart failure [email or web address] Not available 09/16/2024 15:45:25 10/08/2024 [id number] low blood pressure: care instructions Not available 10/08/2024 09:05:46 heart murmur: care instructions Not available 10/08/2024 09:05:46 05/06/2025 [id number] mammogram: about this test [email or web address] Not available 05/06/2025 11:35:54 body mass index: care instructions [email or web address] Not available 05/06/2025 11:35:54 learning about healthy weight [email or web address] Not available 05/06/2025 11:35:54 low blood pressure: care instructions [email or web address] Not available 05/06/2025 11:38:46 Reason for Referral Neurologist Referral for Amn esia Referring Physician: [facility], Encounter Date: 05/06/2025 [employer] Referral for Ve rtigo Referring Physician: [facility], Encounter Date: 05/06/2025 Results Created Date Observation Date Name Description Value Unit Range Abnormal Flag Note LastModifiedBy Organization Detail LastModifiedTime 08/12/20 24 08/12/2024 rapid SARS CoV 2 Ag, QL, IA, upper respi rator y speci men SARS CoV Ag negati ve Not Available [facility] [address] [place] [address], [place], [address], 08/12/2024 15:05:57 08/12/20 24 08/12/2024 rapid flu (A+B) Flu A negati ve Not Available [facility] [address] [place] [address], [place], [address], 08/12/2024 15:05:53 08/12/20 24 08/12/2024 rapid flu (A+B) Flu B negati ve Not Available [facility] [address] [facility], [place], [address], 08/12/2024 15:05:53 09/16/19 25 09/17/2024 BASIC METAB OLIC PANEL (8) glucose COMMEN T mg/dL Test not perfo rmed. Serum was in conta ct with cells when recei asha which will make the resul t inacc urate . Not Available [facility] ([facility]) [address] [facility], [place], [address], 09/17/2024 12:08:08 09/16/19 25 09/17/2024 BASIC METAB OLIC PANEL (8) BUN 34 mg/dL 6-24 above high normal Not Available [facility] ([facility]) [address] [facility], [place], [address], 09/17/2024 12:08:08 09/16/19 25 09/17/2024 BASIC METAB OLIC PANEL (8) creatinine 2.45 mg/dL 0.57-1 .00 above high normal Not Available [facility] ([facility]) [address] [facility], [place], [address], 09/17/2024 12:08:08 09/16/19 25 09/17/2024 BASIC METAB OLIC PANEL (8) eGFR 23 mL/mi n/1.7 3 >59 below low normal Not Available [facility] ([facility]) [address] [facility], [place], [address], 09/17/2024 12:08:08 09/16/19 25 09/17/2024 BASIC METAB OLIC PANEL (8) BUN/creatini ne ratio 14 9-23 normal Not Available [facility] ([facility]) [address] [facility], [place], [address], 09/17/2024 12:08:08 09/16/1909/17/2024 BASIC METAB OLIC PANEL (8) sodium 138 mmol/ L 134-14 4 normal Not Available [facility] ([facility]) [address] [facility], [place], [address], 09/17/2024 12:08:08 09/16/1909/17/2024 BASIC METAB OLIC PANEL (8) potassium COMMEN T mmol/ L Test not perfo rmed. Serum was in conta ct with cells when recei asha which will make the resul t inacc urate . Not Available [facility] ([facility]) [address] [facility], [place], [address], 09/17/2024 12:08:08 09/16/1909/17/2024 BASIC METAB OLIC PANEL (8) chloride 92 mmol/ L 96-106 below low normal Not Available [facility] ([facility]) [address] [place], [address], 09/17/2024 12:08:08 09/16/19 25 09/17/2024 BASIC METAB OLIC PANEL (8) carbon dioxide, total 21 mmol/ L 20-29 normal Not Available [facility] ([facility]) [address] [place], [address], 09/17/2024 12:08:08 09/16/19 25 09/17/2024 BASIC METAB OLIC PANEL (8) calcium 9.4 mg/dL 8.7-10 .2 normal Not Available [facility] ([facility]) [address] [place], [address], 09/17/2024 12:08:08 05/06/20 25 05/07/2025 CBC WITH DIFFE RENTI AL/PL ATELE T WBC 5.0 x10e3 /uL 3.4-10 .8 normal Not Available [facility] ([facility]) [address] [facility], [place], [address], 05/07/2025 09:11:40 05/06/2005/07/2025 CBC WITH DIFFE RENTI AL/PL ATELE T RBC 2.99 x10e6 /uL 3.77-5 .28 below low normal Not Available [facility] ([facility]) [address] [facility], [place], [address], 05/07/2025 09:11:40 05/06/20 25 05/07/2025 CBC WITH DIFFE RENTI AL/PL ATELE T hemoglobin 9.4 g/dL 11.1-1 5.9 below low normal Not Available [facility] ([facility]) [address] [place], [address], 05/07/2025 09:11:40 05/06/20 25 05/07/2025 CBC WITH DIFFE RENTI AL/PL ATELE T hematocrit 29.9 % 34.0-4 6.6 below low normal Not Available [facility] ([facility]) [address] [place], [address], 05/07/2025 09:11:40 05/06/20 25 05/07/2025 CBC WITH DIFFE RENTI AL/PL ATELE T MCV 100 fL 79-97 above high normal Not Available [facility] ([facility]) [address] [place], [address], 05/07/2025 09:11:40 05/06/20 25 05/07/2025 CBC WITH DIFFE RENTI AL/PL ATELE T MCH 31.4 pg 26.6-3 3.0 normal Not Available [facility] ([facility]) [address] [facility], [place], [address], 05/07/2025 09:11:40 05/06/20 25 05/07/2025 CBC WITH DIFFE RENTI AL/PL ATELE T MCHC 31.4 g/dL 31.5-3 5.7 below low normal Not Available [facility] ([facility]) [address] [facility], [place], [address], 05/07/2025 09:11:40 05/06/20 25 05/07/2025 CBC WITH DIFFE RENTI AL/PL ATELE T RDW 13.9 % 11.7-1 5.4 Not Available [facility] ([facility]) [address] [facility], [place], [address], 05/07/2025 09:11:40 05/06/20 25 05/07/2025 CBC WITH DIFFE RENTI AL/PL ATELE T platelets 313 x10e3 /uL 150-45 0 normal Not Available [facility] ([facility]) [address] [facility], [place], [address], 05/07/2025 09:11:40 05/06/2005/07/2025 CBC WITH DIFFE RENTI AL/PL ATELE T neutrophils 68 % not estab. normal Not Available [facility] ([facility]) [address] [facility], [place], [address], 05/07/2025 09:11:40 05/06/20 25 05/07/2025 CBC WITH DIFFE RENTI AL/PL ATELE T lymphs 18 % not estab. normal Not Available [facility] ([facility]) [address] [facility], [place], [address], 05/07/2025 09:11:40 05/06/20 25 05/07/2025 CBC WITH DIFFE RENTI AL/PL ATELE T monocytes 10 % not estab. normal Not Available [facility] ([facility]) [address] [facility], [place], [address], 05/07/2025 09:11:40 05/06/20 25 05/07/2025 CBC WITH DIFFE RENTI AL/PL ATELE T eos 4 % not estab. normal Not Available [facility] ([facility]) [address] [facility], [place], [address], 05/07/2025 09:11:40 05/06/2005/07/2025 CBC WITH DIFFE RENTI AL/PL ATELE T basos 0 % not estab. normal Not Available [facility] ([facility]) [address] [facility], [place], [address], 05/07/2025 09:11:40 05/06/20 25 05/07/2025 CBC WITH DIFFE RENTI AL/PL ATELE T immature cells COMPARATIVE SOCIOLOGY PROFESSOR Not Available [facility] ([facility]) [address] [place], [address], 05/07/2025 09:11:40 05/06/2005/07/2025 CBC WITH DIFFE RENTI AL/PL ATELE T neutrophils (absolute) 3.4 x10e3 /uL 1.4-7. 0 normal Not Available [facility] ([facility]) [address] [place], [address], 05/07/2025 09:11:40 05/06/2005/07/2025 CBC WITH DIFFE RENTI AL/PL ATELE T lymphs (absolute) 0.9 x10e3 /uL 0.7-3. 1 normal Not Available [facility] ([facility]) [address] [place], [address], 05/07/2025 09:11:40 05/06/20 25 05/07/2025 CBC WITH DIFFE RENTI AL/PL ATELE T monocytes(ab solute) 0.5 x10e3 /uL 0.1-0. 9 normal Not Available [facility] ([facility]) [address] [facility], [place], [address], 05/07/2025 09:11:40 05/06/20 25 05/07/2025 CBC WITH DIFFE RENTI AL/PL ATELE T eos (absolute) 0.2 x10e3 /uL 0.0-0. 4 normal Not Available [facility] ([facility]) [address] [facility], [place], [address], 05/07/2025 09:11:40 05/06/20 25 05/07/2025 CBC WITH DIFFE RENTI AL/PL ATELE T baso (absolute) 0.0 x10e3 /uL 0.0-0. 2 normal Not Available [facility] ([facility]) [address] [facility], [place], [address], 05/07/2025 09:11:40 05/06/20 25 05/07/2025 CBC WITH DIFFE RENTI AL/PL ATELE T immature granulocytes 0 % not estab. Not Available [facility] ([facility]) [address] [facility], [place], [address], 05/07/2025 09:11:40 05/06/20 25 05/07/2025 CBC WITH DIFFE RENTI AL/PL ATELE T immature grans (abs) 0.0 x10e3 /uL 0.0-0. 1 Not Available [facility] ([facility]) [address] [facility], [place], [address], 05/07/2025 09:11:40 05/06/20 25 05/07/2025 CBC WITH DIFFE RENTI AL/PL ATELE T NRBC COMPARATIVE SOCIOLOGY PROFESSOR Not Available [facility] ([facility]) [address] [facility], [place], [address], 05/07/2025 09:11:40 05/06/20 25 05/07/2025 CBC WITH DIFFE RENTI AL/PL ATELE T hematology comments: COMPARATIVE SOCIOLOGY PROFESSOR Not Available [facility] ([facility]) [address] [facility], [place], [address], 05/07/2025 09:11:40 05/06/20 25 05/07/2025 COMP. METAB OLIC PANEL (14) glucose 107 mg/dL 70-99 above high normal Not Available [facility] ([facility]) [address] [facility], [place], [address], 05/07/2025 09:11:41 05/06/20 25 05/07/2025 COMP. METAB OLIC PANEL (14) BUN 30 mg/dL 6-24 above high normal Not Available [facility] ([facility]) [address] [facility], [place], [address], 05/07/2025 09:11:41 05/06/20 25 05/07/2025 COMP. METAB OLIC PANEL (14) creatinine 1.44 mg/dL 0.57-1 .00 above high normal Not Available [facility] ([facility]) [address] [facility], [place], [address], 05/07/2025 09:11:41 05/06/20 25 05/07/2025 COMP. METAB OLIC PANEL (14) eGFR 43 mL/mi n/1.7 3 >59 below low normal Not Available [facility] ([facility]) [address] [facility], [place], [address], 05/07/2025 09:11:41 05/06/20 25 05/07/2025 COMP. METAB OLIC PANEL (14) BUN/creatini ne ratio 21 9-23 normal Not Available [facility] ([facility]) [address] [facility], [place], [address], 05/07/2025 09:11:41 05/06/20 25 05/07/2025 COMP. METAB OLIC PANEL (14) sodium 139 mmol/ L 134-14 4 normal Not Available [facility] ([facility]) [address] [facility] [place], [address], 05/07/2025 09:11:41 05/06/20 25 05/07/2025 COMP. METAB OLIC PANEL (14) potassium 4.0 mmol/ L 3.5-5. 2 normal Not Available [facility] ([facility]) [address] [place], [address], 05/07/2025 09:11:41 05/06/20 25 05/07/2025 COMP. METAB OLIC PANEL (14) chloride 99 mmol/ L 96-106 normal Not Available [facility] ([facility]) [address] [place], [address], 05/07/2025 09:11:41 05/06/20 25 05/07/2025 COMP. METAB OLIC PANEL (14) carbon dioxide, total 20 mmol/ L 20-29 normal Not Available [facility] ([facility]) [address] [facility] [place], [address], 05/07/2025 09:11:41 05/06/20 25 05/07/2025 COMP. METAB OLIC PANEL (14) calcium 9.0 mg/dL 8.7-10 .2 normal Not Available [facility] ([facility]) [address] [facility] [place], [address], 05/07/2025 09:11:41 05/06/20 25 05/07/2025 COMP. METAB OLIC PANEL (14) protein, total 6.6 g/dL 6.0-8. 5 normal Not Available [facility] ([facility]) [address] [facility] [place], [address], 05/07/2025 09:11:41 05/06/20 25 05/07/2025 COMP. METAB OLIC PANEL (14) albumin 3.8 g/dL 3.8-4. 9 normal Not Available [facility] ([facility]) [address] [place], [address], 05/07/2025 09:11:41 05/06/20 25 05/07/2025 COMP. METAB OLIC PANEL (14) globulin, total 2.8 g/dL 1.5-4. 5 Not Available [facility] ([facility]) [address] [place], [address], 05/07/2025 09:11:41 05/06/20 25 05/07/2025 COMP. METAB OLIC PANEL (14) bilirubin, total 0.3 mg/dL 0.0-1. 2 normal Not Available [facility] ([facility]) [address] [place], [address], 05/07/2025 09:11:41 05/06/20 25 05/07/2025 COMP. METAB OLIC PANEL (14) alkaline phosphatase 99 IU/L 49-135 normal Ple ase note refer ence inter myra coe e Not Available [facility] ([facility]) [address] [place], [address], 05/07/2025 09:11:41 05/06/20 25 05/07/2025 COMP. METAB OLIC PANEL (14) AST (SGOT) 18 IU/L 0-40 normal Not Available [facility] ([facility]) [address] [facility] [place], [address], 05/07/2025 09:11:41 05/06/20 25 05/07/2025 COMP. METAB OLIC PANEL (14) ALT (SGPT) 12 IU/L 0-32 normal Not Available [facility] ([facility]) [address] [facility] [place], [address], 05/07/2025 09:11:41 05/06/20 25 05/07/2025 LIPID PANEL cholesterol, total 167 mg/dL 100-19 9 normal Not Available [facility] ([facility]) [address] [facility], [place], [address], 05/07/2025 09:11:41 05/06/20 25 05/07/2025 LIPID PANEL triglyceride s 137 mg/dL 0-149 normal Not Available [facility] ([facility]) [address] [facility], [place], [address], 05/07/2025 09:11:41 05/06/20 25 05/07/2025 LIPID PANEL HDL cholesterol 55 mg/dL >39 normal Not Available [facility]) [address] [facility], [place], [address], 05/07/2025 09:11:41 05/06/20 25 05/07/2025 LIPID PANEL VLDL cholesterol venkatesh 24 mg/dL 5-40 Not Available [facility] ([facility]) [address] [facility], [place], [address], 05/07/2025 09:11:41 05/06/20 25 05/07/2025 LIPID PANEL LDL chol calc ([facility]) 88 mg/dL 0-99 Not Available [facility] ([facility]) [address] [facility], [place], [address], 05/07/2025 09:11:41 05/06/20 25 05/07/2025 LIPID PANEL LDL calc comment: COMPARATIVE SOCIOLOGY PROFESSOR Not Available [facility] ([facility]) [address] [facility], [place], [address], 05/07/2025 09:11:41 05/06/20 25 05/07/2025 TSH TSH 2.740 uIU/m L 0.450- 4.500 normal Not Available [facility] ([facility]) [address] [place], [address], 05/07/2025 09:11:42 05/06/20 25 05/07/2025 VITAM IN [...] um and D. Sarmad loredo [place]: [facility] . 2. Ross willson [place], Mulugeta martinez [place], Max off-F garth i GOMEZ, et al. Evalu ation , treat ment, and preve ntion of vitam in D defic iency : an Endoc rine Socie ty clini venkatesh pract ice guide line. JCEM. 2010; 96(7) :1911 -30. Not Available [facility] ([facility]) [address] [facility], [place], [address], 05/07/2025 09:11:42 09/24/19 25 09/18/2024 XR, hip + pelvi s, bilat eral No observ ation record ed. [facility] (Med Record) [address], [place], [address], 09/24/2024 17:34:35 10/08/19 25 09/30/2024 elect alycia cervantesgr am, routi ne ECG, 12 leads min; inter preta tion and repor t (PROC ) No observ ation record ed. [email or web address] [facility] [address] , [place], [address], 10/15/2024 11:45:27 04/15/20 25 04/15/2025 XR, forea rm, 2 view No observ ation record ed. [email or web address] [facility] [address], [place], [address], 04/16/2025 08:45:33 04/15/2004/15/2025 XR, hand, 3 or more view No observ ation record ed. [email or web address] [facility] [address], [place], [address], 04/16/2025 08:45:05 04/15/2004/15/2025 XR, wrist No observ ation record ed. [email or web address] [facility] [address], [place], [address], 04/16/2025 08:44:41 Result Notes None recorded. Problems Name Problem SNOMED Code Status Onset Date Resolution Date Notes Provider Name and Address Organization Details Recorded Time Depressiv e disorder 18832578 Active [address] [place] [address], [address], [employer] 5 10:29:07 Osteoarth ritis 794057147 Active 2023 ROSIE Mena [address] [place] [address], 377[address] 8, [employer] 5 10:29:00 Gout 04134553 Active 2023 ROSIE Mena [address] [place] [address], 484[address] 8, [employer] 5 10:29:01 Acute kidney injury 31818961 Active 2023 ROSIE Mena [address] [place] [address], [address] 8, [employer] 5 10:29:05 Serum creatinin e above reference range 332363269 Active 2023 ROSIE Mena [address] [place] [address], 85[address] 8, [employer] 5 10:28:58 Congestiv e heart failure 01492788 Active 2023 ROSIE Mena [address] [place] [address], [address] 8, [employer] 5 10:28:50 Essential hypertens ion 91040506 Active 2023 ROSIE Mena [address] [place] [address], 15[address]767 8, [employer] 5 10:29:09 Acute bronchiti s 91454874 Completed 202309/16/2024 ROSIE Mena [address] [place] [address], 06968[address]035 8, [employer] 5 10:28:53 Chronic kidney disease 945011749 Active 2024 ROSIE Mena [address] [place] [address], 34631[address] 8, [employer] 5 17:12:34 Heart murmur 99909552 Active 2024 ROSIE Mena [address] [place] [address], 357[address] 8, [employer] 08:41:01 Low blood pressure 51801208 Active 2024 ROSIE Mena [address] [place] [address], 08147[address]771 8, [employer] 11:36:44 Closed fracture of left wrist 535384561656 41034 Active 2024 ROSIE Mena [address] [place] [address], 94664[address]226 8, [employer] 11:36:55 Problem Notes None recorded. Procedures Surgical History Date Name Laterality Status Provider Name and Address Organization Details Recorded Time 12/17/19 Date of Last Pap Smear completed [employer] 09/16/2024 10:31:23 Joint Replacement completed [employer] 06/14/2024 10:17:21 Tonsillectomy completed [employer] 06/14/2024 10:17:21 Cardiac Surgery completed [employer]. 06/14/2024 10:17:21 Gallbladder Surgery completed Cherie Leiyoo. 06/14/2024 10:17:21 Imaging Results None recorded. Procedure Notes None recorded. Medical Equipment None Reported. Allergies Allergen ID Allergen Name Allergen Category Reaction Reaction Severity Criticality Documentation Date Start Date Code Code System Note Provider Name and Address Organization Details Recorded Time 66656 Substance with sulfonami de structure and antibacte rial mechanism of action (substanc e) medicatio n itching nausea rash Not available Not available Not available Not available 06/14/2024 10350 8003 SNOMED Cherie Vice [facility], [employer]. 10:17:19 Medications Name Sig Start Date Stop [...] Updated DateTime 5 162.56 cm 46.5 kg/m2 831543. 53 g 96 % 96 % 82 /min 98.1 [degF] 100/66 mm[Hg] [facility] [address] [facility]. 5 10:20:28 Date Recorded Body height Body mass index (BMI) Body weight Heart rate Oxygen saturation Oxygen saturation in Arterial blood by Pulse oximetry Systolic And Diastolic Systolic And Diastolic Provider Name and Address Organization Details Last Updated DateTime 5 162.56 cm 48.9 kg/m2 247404. 83 g 84 /min 99 % 99 % 85/53 mm[Hg] 88/50 mm[Hg] [facility] 5 08:25:15 Date Recorded Body height Heart rate Body temperature Oxygen saturation Oxygen saturation in Arterial blood by Pulse oximetry Systolic And Diastolic Systolic And Diastolic Provider Name and Address Organization Details Last Updated DateTime 5 162.56 cm 84 /min 98.2 [degF] 92 % 92 % 88/52 mm[Hg] 90/53 mm[Hg] [facility] [facility] 5 11:11:16 Date Recorded Body weight Body mass index (BMI) Body height Oxygen saturation Oxygen saturation in Arterial blood by Pulse oximetry Heart rate Systolic And Diastolic Provider Name and Address Organization Details Last Updated DateTime 4 913858. 64 g 48.6 kg/m2 162.56 cm 95 % 95 % 72 /min 136/79 mm[Hg] [facility] 4 10:16:13 Date Recorded Body height Body mass index (BMI) Body weight Heart rate Oxygen saturation Oxygen saturation in Arterial blood by Pulse oximetry Systolic And Diastolic Provider Name and Address Organization Details Last Updated DateTime 4 162.56 cm 47.7 kg/m2 144180. 68 g 96 /min 95 % 95 % 117/69 mm[Hg] [facility] 4 15:01:18 Social History Question Answer Notes LastModified by Organizat ion Details LastModified Time Tobacco Smoking Status Never Smoker [facility] [employer]. 06/14/2024 10:17:20 Do You Have An Advance [...] Information not available 06/14/2024 What Type Of Business Information Consultant Do You Use? None Information not available [...] Or The Highest Degree You Have Received? [id number] Information not available 06/14/2024 Have There Been Any Changes To Your Family Or Social Situation? No Information no t available 06/14/2024 Are There Any Guns Present In Your Home? No Information not available 06/14/2024 Which Of Your Hands Is Dominant? Right Information not available 06/14/2024 What Is Your Home Situation? Other Information not available 06/14/2024 Do You Have A Medical Power Of Registered Respiratory Technician? No Information not available 06/14/2024 What Was The Date Of Your Most Recent Tobacco Screening? 05/06/2025 [email or web address] Information not available 05/06/2025 Do You Have [...] Functional Status Question Answer Note LastModified by [employer] ion Details LastModified Time Do you use [...] Mental Status Question Answer Note LastModified by [employer] ion Details LastModified Time Do you feel stressed (tense, restless, nervous, or anxious, or unable to sleep at night)? [id number] Information not available 08/12/2024 Do you have [...] ent. N Hypothyroidism N Lung Disease N Dermatologic Disorders N COPD N Depression Y Developmental or Behavioral Disorders N Defects or [...] Organ Transplant N Headaches N Schizophrenia N Dialysis N Fibromyalgia N Kidney Disease N Allergies/Hayfever [...] mcg/0.3 mL dose 09/08/2021 completed Cherie vera [employer] 08/12/2024 14:57:31 COVID-19, mRNA, LNP-S, PF, 30 mcg/0.3 mL dose 08/11/2021 completed Cherie Vice null, [employer] 08/12/2024 14:57:31 COVID-19, mRNA, LNP-S, PF, 30 mcg/0.3 mL dose, jayce-sucrose 03/28/2022 completed Cherie Vice null, [employer] 08/12/2024 14:57:31 tetanus toxoid, adsorbed 11/09/2009 completed Cherie Vice null, [employer] 08/12/2024 14:57:31 Hep A-Hep B 01/25/2024 completed Cherie Vice null, [employer] 08/12/2024 14:57:31 Hep A-Hep B 04/24/2024 completed Cherie Vice null, [employer] 08/12/2024 14:57:31 Past Encounters Encounter ID Performer Location Encounter Start Date Encounter Closed Date Diagnosis/Indication Diagnosis SNOMED-CT Code Diagnosis ICD10 Code Diagnosis IMO Codes Diagnosis Note [id number] ROSIE Mena [address] [address] 06/14/2024 09:39:19 06/14/2024 11:31:46 Screening mammography 02835013 Z12.31 Osteoarthritis 220386391 M19.90 Gout 61069036 M10.9 Acute kidney injury 1466 9001 N17.9 repeat BMP Monday Serum crea tinine above reference range 094823166 R79.89 Congestive heart failure 00395299 I50.9 torsemide sparingly due to kidney injury but patient is retaining fluid, dsypneic so is likely going to have to resume it [id number] ROSIE Mena [facility] [address] [place] [address] 08/12/2024 14:35:51 08/12/2024 15:29:15 Cough 87043821 R05.9 Acute bronchitis 5635441 2 J20.9 Congestive heart failure 55172437 I50.9 [id number] ROSIE Mena [facility] [address] [place] [address] 09/16/2024 10:01:55 09/16/2024 10:53:38 Screening colonoscopy 160621189 Z12.11 Low back pain 810760783 M54.50 Serum crea tinine above reference range 010765953 R79.89 Congestive heart failure 63613334 I50.9 [id number] ROSIE Mena [address] [place] [address] 10/08/2024 08:11:46 10/08/2024 09:17:28 Heart murmur 79767366 R01.1 Low blood pressure 32116 003 I95.9 We could not get EKG to connect here in the office this am, so patient was sent to [facility] for EKG, CBC, BMPLab called with critical potassium of 2.9Called patient and advised her to go to ER for replacemen t and tele monitoring [id number] ROSIE Mena [facility] [address] [place] [address] 05/06/2025 10:41:05 05/06/2025 11:45:49 Body mass index 40+ - severely obese 029489014 Z68.42 375105 Screening mammography 24 854458 Z12.31 4687820243 Screening for malignant neoplasm of colon 990766579 Z12.11 [id number] Amnesia 25951913 R41.3 22980 Vertigo 133074954 R42 81781 Low blood pressure 09011 003 I95.9 0254710806 Decrease Entresto, Bumex and spironolac tone by 1/2 until she is able to see cardiology Closed fra cture of left wrist 8104026633 5203120 S62.102A [id number] Health Concerns Section Related Observation LastModified by Organization Detai ls LastModified Time None Recorded Concern Status LastModified by Organization Details LastModified Time None Recorded Advance Directives Directive N: Payers Insurance Date Sequence Insurance Name Policy Number Policy Jonas Covered Member ID Jonas Member ID Guarantor Name 05/31/2025 1 A[employer] [facility] (MEDICAID HMO) Lesia Doran [id number] Lesia Doran Notes Date Note Type Note Provider Name and Address Organization Details Recorded Time 06/14/2024 text/html Patient presents to establish care at [facility], former patient of mine.Patient states that she has been in and out of the hospital a few times over the past few months. Had pain, swelling, unable to move left arm. Had been treated for cellulitis approximately one month prior. This time, she was diagnosed with gout. Kidney function was elevated while at [facility] - creatinine was 5 initially and then came down to 1.9 and eGFR was 27.She is tired and short of breath with exertion. She has gained weight. They held her fluid pill while at [facility] to recheck her kidney function before resuming, but she has not heard from them yet. ROSIE Mena [address] [place], [address], [employer] 06/14/2024 14:06:21 08/12/2024 text/html Patient has had [...] been taking them daily. ROSIE Mena [address] [place], [address], [employer] 08/12/2024 16:22:23 09/16/2024 text/html Patient states that she fell on the ice 3 different times on 09/11. She struck her low back. Has pain in her low back and both hips. 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 SHe feels like her left hip is higher than her right. ROSIE Mena [address] [place], [address], [employer], [employer]. 09/16/2024 15:46:04 10/08/2024 text/html ROS as noted [...] clearance before her colonoscopy. ROSIE Mena [address] [place], [address], [employer], [employer] 10/08/2024 11:36:02 05/06/2025 text/html ROS as noted [...] the left wrist currently. ROSIE Mena [address] [place], [address], [employer] 05/06/2025 15:38:58 OBGyn Episode No OBEpisode recorded.
--- NOTE | 2025-07-03 14:00 | MM_ITS ---
PROCEDURE INFORMATION: Exam: US Left Breast, Complete MG Bilateral Diagnostic Breast Tomosynthesis Exam date and time: 07/03/2025 1:43 PM Age: 54 years old Clinical indication: Left breast palpable lump. TECHNIQUE: Imaging protocol: Complete ultrasound of all four quadrants of the left breast and the retroareolar regions, including ultrasound of the axilla when performed. Bilateral Diagnostic tomosynthesis and 2D mammography including computer-aided detection (CAD) when performed. Unilateral or bilateral exam. COMPARISON: 1. MG MM DIG MAMM BI DX W/CAD 03/31/2022 1:33 PM 2. MG MM DIG MAMM DX UNILAT RT CAD 09/30/2021 1:52 PM FINDINGS: MAMMOGRAPHY: Breast composition: There are scattered areas of fibroglandular density. Breast mammogram findings: Skin markers were placed over the palpable area of concern in the left lower inner quadrant. There is no underlying suspicious mass, distortion, or suspicious calcifications. There are changes that are consistent with fat necrosis. In both breasts, there is no mammographic evidence of malignancy. ULTRASOUND: Breast ultrasound findings: Ultrasound of the area of palpable concern in the left breast 9 o'clock axis, 3 cm from the nipple demonstrates underlying oil cyst and questionable posttraumatic changes in the subcutaneous fat. There is no suspicious mass, shadowing, or distortion. IMPRESSION: 1. Probably benign changes in the left breast subcutaneous fat at the palpable area of concern, 9 o'clock axis, 3 cm from the nipple that are most suggestive of posttraumatic healing. A three-month follow-up left breast ultrasound is recommended for close surveillance of this finding. 2. No mammographic evidence of malignancy. ASSESSMENT: BI-RADS Category 3: Probably benign.
== END 2025-07-03 23:59 | disposition home or self-care (01) ==
LOC: RAD 13:41
PROVIDERS: PCP Physician Assistant; Visit Provider Nurse Practitioner Obstetrics & Gynecology
DX: N63.25 Unspecified lump in the left breast, overlapping quadrants (principal); R92.322 Mammographic fibroglandular density, left breast; R92.8 Other abnormal and inconclusive findings on diagnostic imaging of breast
CPT/HCPCS: 76641; 77062; 77066; G0279

== ENCOUNTER 2025-07-15 14:34 | Outpatient (RCR) | payer OTHER, SELFPAY ==
--- NOTE | 2025-07-15 15:08 | HMH.RHREAS ---
Rehab Reassessment Rehab OP Re-assessment Start: 07/15/25 14:35 Freq: Status: Active Protocol: Document 07/15/25 15:01 RACHEL (Rec: 07/15/25 15:08 RACHEL [id number]) E-signed By MICHELLE HayesDASH Activities Please rate your ability to do the following activities in the last week by selecting the number below the appropriate response. 1. Open a tight or Severe difficulty new jar. 2. Do heavy Moderate difficulty early childhood assistant (e. g., wash coley, floors). 3. Carry a shopping Severe difficulty bag or briefcase. 4. Wash your back. Severe difficulty 5. Use a knife to Severe difficulty cut food. 6. Recreational Unable activities in which you take some force or impact through your arm, shoulder, or hand (e.g., golf, hammering, tennis, etc.). 7. During the past Quite a bit week, to what extent has your arm, shoulder or hand problem interfered with your normal social activities with family, friends , neighbors or groups? 8. During the past Moderately limited week, were you limited in your work or other regular daily activites as a result of your arm, shoulder or hand problem? 9. Arm, shoulder or Severe hand pain. 10. Tingling (pins Extreme and needles) in your arm, shoulder or hand. 11. During the past Severe difficulty week, how much difficulty have you had sleeping because of the pain in your arm, shoulder or hand? Quick DASH 44 Rehab Re-assessment Subjective Subjective I can't remember when I go back. Objective Objective Notes Pt has not attended therapy session since initial evaluation 32 days ago. Today, pt was passively ranged in all planes at left wrist: flexion, extension, RD, UD, supination, and pronation. Pt also engaged in AROM , AAROM, and light strengthening exercises for left wrist and left hand paperhanger pipe strength. Pt also received modalities in order to decrease pain/inflammation. Assessment Progress Assessment Slower Than Expected Assessment Notes Pt has not been consistent with therapy session and has not attended a session since her initial evaluation 32 days ago. Therapist re-educated patient on the importance of attending therapy sessions in order to improve overall AROM and strength at left wrist. Pt unable to recall when she returns to [facility] for re- evaluation/follow up. Pt continues to demonstrate with significant decline in AROM and strength at left wrist . She is reporting her pain at worst is still reaching a 9/10. Therapist recommends continued skilled therapy in order to improve overall functional use of L wrist/hand. Pt has not met any goals at this time due to pt's inconsistency with attending therapy sessions. Current L wrist AROM: Flex: 42 Ext: 38 RD: 10 UD: 15 Sup: 70 Pro: 90 OT Patient Goals OT Short Term 1. Patient will demonstrate improved L wrist AROM by at Patient Goals least 10?15? in all planes to support ADL participation. 2. Patient will tolerate light resistive therapeutic exercises with minimal pain (<3/10) to increase L UE strength for daily activities. 3. Patient will verbalize and demonstrate joint protection and edema management techniques with minimal verbal cues. 4. Patient will use bilateral upper extremities during light grooming or dressing tasks with minimal compensation. 5. Patient will demonstrate improved L hand paperhanger pipe strength to 20# to enhance safety and efficiency with daily tasks. OT Data Compiler Patient 1. Patient will demonstrate L wrist and forearm AROM Goals and strength within functional limits to resume prior level of function. 2. Patient will complete self-care and light household tasks independently using L UE without increased pain or fatigue. 3. Patient will demonstrate improved L hand paperhanger pipe strength to 25# to enhance safety and efficiency with daily tasks. Plan Plan Continue with plan of care at this time in order to improve functional use of L wrist and hand. Frequency of Therapy 2x's a week Duration of Therapy 4 more weeks Therapeutic Exercise Yes Including Home Exercise Program Manual Therapy Yes Techniques Neuromuscular Re- Yes education Therapeutic Yes Activities to Return to Previous Functional/Work Level ADL/Self Care Yes Education Thermal Modalities Yes Electrical Yes Stimulation Ultrasound/ Yes Phonophoresis Iontophoresis Yes Parrafin Yes Orthotics/Bracing/ Yes Splinting Massage Yes Eval/Re-Eval Yes Time and Billing Re-Eval Time 9 Re-Eval Billing 0 Units Charge for OT No reassessment? PHYSICIAN CERTIFICATION: I certify the specified therapy services for Lesia Doran are required, authorized, and reviewed every 30 days.
== END 2025-07-15 23:59 | disposition home or self-care (01) ==
LOC: OT 14:34
PROVIDERS: PCP Physician Assistant; Visit Provider Physician Assistant Surgical
DX: S52.509A Unspecified fracture of the lower end of unspecified radius, initial encounter for closed fracture (principal)
CPT/HCPCS: 97014; 97110; 97140; G0283

== ENCOUNTER 2025-07-23 07:43 | Outpatient (CLI) | payer OTHER, SELFPAY ==
--- NOTE | 2025-07-23 | MR_ITS ---
FINAL REPORT TECHNIQUE: Multiplanar and multisequence imaging of the brain was obtained before and after contrast administration. CLINICAL HISTORY: headaches COMPARISON: None FINDINGS: Brain parenchymal: There is no mass effect or midline shift. There are bilateral periventricular and subchondral white matter changes present. The cerebellum and brainstem are without acute abnormality. Ventricles: The ventricles are symmetric in size and configuration without hydrocephalus. Extra-axial spaces: No extra-axial fluid collections. Diffusion imaging: No areas of restricted diffusion to suggest acute infarct. Flow voids: Flow voids within the major intracranial vessels are preserved. Soft tissues: Soft tissues are without acute abnormality. Post contrast imaging: No abnormal enhancement. IMPRESSION: No acute intracranial abnormality and no pathologic contrast enhancement. Bilateral periventricular and subcortical white matter changes, that most likely represent either chronic changes of ischemia or a demyelinating process. Reviewed, Interpreted and Dictated by Carmina Dawn MD Transcribed by Nessa Verdugo Authenticated and [facility] [place]
--- OUTSIDE RECORDS SUMMARY | 2025-07-23 07:46 | XMS_ITS | Clinical Summary ---
Author Organization [facility] Address [address] [place] [address] Care Team Providers Care Over The Road Driver Name Role Phone Janice Fitzpatrick Primary Care Provider [phone] Allergies Active Allergy Reactions Criticality Noted Date [...] place to sleep or slept in a mcc (including now)? 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 No confirmatory testing is required. Blood Venous blood specimen / Unknown Venipuncture / Unknown 01/23/2024 10:51 AM EDT 01/23/2024 10:57 AM EDT Sary Dawson MD LAB BLOOD ORDERABLES Final R esult Performing Organization Address City/[facility] Co de Phone Number [facility] [address] [place] [address] * Hepatitis C Antibody (01/23/2024 10:51 AM EDT) Hepatitis C Antibody Negative Negative 01/23/2024 11:25 AM EDT [facility] Blood Venous blood specimen / Unknown Venipuncture / Unknown 01/23/2024 10:51 AM EDT 01/23/2024 10:57 AM EDT us Sary Dawson MD LAB BLOOD ORDERABLES Final R esult Performing Organization Address City/[facility]/ZIP Co de Phone Number [facility] [address] [place] [address] * (ABNORMAL) Hemoglobin A1c (01/17/2024 4:06 AM [...] Adults <6.0% Children and Adolescents <7.5% Source: [place] [employer]. Standards of medical care in diabetes,2017. Diabetes Care.2017:40 (suppl 1):S1-S135. HbA1c assay performed by an ion-exchange chromatography method that is certified traceable to the DCCT. us Marc Weinberg MD LAB BLOOD ORDERABLES Final Result [facility] [address] [place] [address] from Last 3 Months or Most Recently Relevant to Health Maintenance Insurance A[employer]NA [facility] [...] Patient has decision-making capacity? Yes Care Teams Over The Road Driver Relationship Specialty Start Date End Date Janice Fiztpatrick PA [address] [place] [address] PCP - General 12/20/21
--- OUTSIDE RECORDS SUMMARY | 2025-07-23 07:46 | XMS_ITS | Continuity of Care Document ---
Author Organization [facility] [employer], [employer] [facility] Address [address] [place] [address] Assessment No assessment recorded. Plan of Treatment Reminders Order Date Submit Date Provider Last Modified By Organization Details Last Modified Time Details Appointments None recorded. Lab lipid panel, serum 2024 025 [facility] ([place]), [address] [place], [address], 5 09:11:41 CMP, serum or plasma 2024 025 PRANEETH [facility] ([place]), [address] [place], [address], 5 09:11:41 CBC w/ auto diff 2024 025 [place] [facility] ([place]), [address] [place], [address], 5 09:11:40 vitamin D, 25-hydroxy, total, serum 2024 025 PRANEETH [facility] ([place]), [address] [place], [address], 5 09:11:42 TSH, ultra-sensi tive, serum 2024 025 MEETiiN [facility] ([place]), [address] [place], [address], 5 09:11:42 Referral neurologist referral 2024 025 [email or web address] Polly Duong MD, [address], [place], [address], 5 10:45:44 cardiologis t referral 2024 025 [facility], [address], [place], [address], 15:26:43 Procedures colonoscopy screening (PROC) 2024 025 [place] [address] Karlos Draper MD, [address], [place], [address], 5 14:56:19 Surgeries None recorded. Imaging CT, head + brain, w/o contrast 2024 025 [email or web address] Centralized Scheduling, [address] [place], [address], 13:27:13 MAMMO, screening, digital, bilateral 2024 025 [email or web address] [facility] Centralized Scheduling, [address] [place], [address], 5 10:56:08 DEXA [address] (X-Ray), [address] [place] [address] [address], [place], [address], 5 08:35:59 Medication Orders None recorded. Patient TargetsNo targets recorded. Patient Instructions Encounter Date Encounter Id Patient Instructions Last Modified By Organization Details Last Modified Time 05/06/2025 [id number] mammogram: about this test [email or web address] Not available 05/06/2025 11:35:54 body mass index: care instructions Not available 05/06/2025 11:35:54 learning about healthy weight [email or web address] Not available 05/06/2025 11:35:54 low blood pressure: care instructions [email or web address] Not available 05/06/2025 11:38:46 Reason for Referral Neurologist Referral for Amn esia Referring Physician: [facility], Encounter Date: 05/06/2025 Desktop Specialist Referral for Ve rtigo Referring Physician: [facility], Encounter Date: 05/06/2025 Results Created Date Observation Date Name Description Value Unit Range Abnormal Flag Note LastModifiedBy Organization Detail LastModifiedTime 05/06/2005/07/2025 CBC WITH DIFFE RENTI AL/PL ATELE T WBC 5.0 x10e3 /uL 3.4-10 .8 normal Not Available [facility] ([facility]) [address] [place], [address], 05/07/2025 09:11:40 05/06/2005/07/2025 CBC WITH DIFFE RENTI AL/PL ATELE T RBC 2.99 x10e6 /uL 3.77-5 .28 below low normal Not Available [facility] ([facility]) [address] [place], [address], 05/07/2025 09:11:40 05/06/2005/07/2025 CBC WITH DIFFE RENTI AL/PL ATELE T hemoglobin 9.4 g/dL 11.1-1 5.9 below low normal Not Available [facility] ([facility]) [address] [place], [address], 05/07/2025 09:11:40 05/06/2005/07/2025 CBC WITH DIFFE RENTI AL/PL ATELE T hematocrit 29.9 % 34.0-4 6.6 below low normal Not Available [facility] ([facility]) [address] [place], [address], 05/07/2025 09:11:40 05/06/20 25 05/07/2025 CBC WITH DIFFE RENTI AL/PL ATELE T MCV 100 fL 79-97 above high normal Not Available [facility] ([facility]) [address] [facility], [place], [address], 05/07/2025 09:11:40 05/06/20 25 05/07/2025 CBC WITH DIFFE RENTI AL/PL ATELE T MCH 31.4 pg 26.6-3 3.0 normal Not Available [facility] ([facility]) [address] [facility], [place], [address], 05/07/2025 09:11:40 05/06/20 25 05/07/2025 CBC WITH DIFFE RENTI AL/PL ATELE T MCHC 31.4 g/dL 31.5-3 5.7 below low normal Not Available [facility] ([facility]) [address] [facility], [place], [address], 05/07/2025 09:11:40 05/06/20 25 05/07/2025 CBC WITH DIFFE RENTI AL/PL ATELE T RDW 13.9 % 11.7-1 5.4 Not Available [facility] ([facility]) [address] [facility], [place], [address], 05/07/2025 09:11:40 05/06/20 25 05/07/2025 CBC WITH DIFFE RENTI AL/PL ATELE T platelets 313 x10e3 /uL 150-45 0 normal Not Available [facility] ([facility]) [address] [place], [address], 05/07/2025 09:11:40 05/06/2005/07/2025 CBC WITH DIFFE RENTI AL/PL ATELE T neutrophils 68 % not estab. normal Not Available [facility] ([facility]) [address] [place], [address], 05/07/2025 09:11:40 05/06/20 25 05/07/2025 CBC WITH DIFFE RENTI AL/PL ATELE T lymphs 18 % not estab. normal Not Available [facility] ([facility]) [address] [facility] [place], [address], 05/07/2025 09:11:40 05/06/20 25 05/07/2025 CBC WITH DIFFE RENTI AL/PL ATELE T monocytes 10 % not estab. normal Not Available [facility] ([facility]) [address] [facility], [place], [address], 05/07/2025 09:11:40 05/06/20 25 05/07/2025 CBC WITH DIFFE RENTI AL/PL ATELE T eos 4 % not estab. normal Not Available [facility] ([facility]) [address] [place], [address], 05/07/2025 09:11:40 05/06/20 25 05/07/2025 CBC WITH DIFFE RENTI AL/PL ATELE T basos 0 % not estab. normal Not Available [facility] (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) [address] [place], [address], 05/07/2025 09:11:40 05/06/20 25 05/07/2025 CBC WITH DIFFE RENTI AL/PL ATELE T neutrophils (absolute) 3.4 x10e3 /uL 1.4-7. 0 normal Not Available [facility] ([facility]) [address] [place], [address], 05/07/2025 09:11:40 05/06/20 25 05/07/2025 CBC WITH DIFFE RENTI AL/PL ATELE T lymphs (absolute) 0.9 x10e3 /uL 0.7-3. 1 normal Not Available [facility] ([facility]) [address] [place], [address], 05/07/2025 09:11:40 05/06/20 25 05/07/2025 CBC WITH DIFFE RENTI AL/PL ATELE T monocytes(ab solute) 0.5 x10e3 /uL 0.1-0. 9 normal Not Available [facility] ([facility]) [address] [facility], [place], [address], 05/07/2025 09:11:40 05/06/20 25 05/07/2025 CBC WITH DIFFE RENTI AL/PL ATELE T eos (absolute) 0.2 x10e3 /uL 0.0-0. 4 normal Not Available [facility] ([facility]) [address] [place], [address], 05/07/2025 09:11:40 05/06/20 25 05/07/2025 CBC WITH DIFFE RENTI AL/PL ATELE T baso (absolute) 0.0 x10e3 /uL 0.0-0. 2 normal Not Available [facility] ([facility]) [address] [facility], [place], [address], 05/07/2025 09:11:40 05/06/20 25 05/07/2025 CBC WITH DIFFE RENTI AL/PL ATELE T immature granulocytes 0 % not estab. Not Available [facility] ([facility]) [address] [place], [address], 05/07/2025 09:11:40 05/06/20 25 05/07/2025 CBC WITH DIFFE RENTI AL/PL ATELE T immature grans (abs) 0.0 x10e3 /uL 0.0-0. 1 Not Available [facility] ([facility]) [address] [place], [address], 05/07/2025 09:11:40 05/06/20 25 05/07/2025 CBC WITH DIFFE RENTI AL/PL ATELE T NRBC PAY STATION ATTENDANT Not Available [facility] ([facility]) [address] [facility] [place], [address], 05/07/2025 09:11:40 05/06/20 25 05/07/2025 CBC WITH DIFFE WENDY AL/NIKKY [facility] comments: PAY STATION ATTENDANT Not Available [facility] ([facility]) [address], [place], [address], 05/07/2025 09:11:40 05/06/20 25 05/07/2025 COMP. METAB OLIC PANEL (14) glucose 107 mg/dL 70-99 above high normal Not Available [facility] ([facility]) [address] [facility] [place], [address], 05/07/2025 09:11:41 05/06/20 25 05/07/2025 COMP. METAB OLIC PANEL (14) BUN 30 mg/dL 6-24 above high normal Not Available [facility] ([facility]) [address] [facility] [place], [address], 05/07/2025 09:11:41 05/06/20 25 05/07/2025 COMP. METAB OLIC PANEL (14) creatinine 1.44 mg/dL 0.57-1 .00 above high normal Not Available [facility] ([facility]) [address] [facility] [place], [address], 05/07/2025 09:11:41 05/06/20 25 05/07/2025 COMP. METAB OLIC PANEL (14) eGFR 43 mL/mi n/1.7 3 >59 below low normal Not Available [facility] ([facility]) [address] [facility] [place], [address], 05/07/2025 09:11:41 05/06/20 25 05/07/2025 COMP. METAB OLIC PANEL (14) BUN/creatini ne ratio 21 9-23 normal Not Available [facility] ([facility]) [address] [facility] [place], [address], 05/07/2025 09:11:41 05/06/20 25 05/07/2025 COMP. METAB OLIC PANEL (14) sodium 139 mmol/ L 134-14 4 normal Not Available [facility] ([facility]) [address] [facility] [place], [address], 05/07/2025 09:11:41 05/06/20 25 05/07/2025 COMP. METAB OLIC PANEL (14) potassium 4.0 mmol/ L 3.5-5. 2 normal Not Available [facility] ([facility]) [address] [facility] [place], [address], 05/07/2025 09:11:41 05/06/20 25 05/07/2025 COMP. METAB OLIC PANEL (14) chloride 99 mmol/ L 96-106 normal Not Available [facility] ([facility]) [address] [facility] [place], [address], 05/07/2025 09:11:41 05/06/20 25 05/07/2025 COMP. METAB OLIC PANEL (14) carbon dioxide, total 20 mmol/ L 20-29 normal Not Available [facility] ([facility]) [address] [facility] [place], [address], 05/07/2025 09:11:41 05/06/20 25 05/07/2025 COMP. METAB OLIC PANEL (14) calcium 9.0 mg/dL 8.7-10 .2 normal Not Available [facility] ([facility]) [address] [facility] [place], [address], 05/07/2025 09:11:41 05/06/20 25 05/07/2025 COMP. METAB OLIC PANEL (14) protein, total 6.6 g/dL 6.0-8. 5 normal Not Available [facility] ([facility]) [address] [facility] [place], [address], 05/07/2025 09:11:41 05/06/20 25 05/07/2025 COMP. METAB OLIC PANEL (14) albumin 3.8 g/dL 3.8-4. 9 normal Not Available [facility] ([facility]) [address] [facility] [place], [address], 05/07/2025 09:11:41 05/06/20 25 05/07/2025 COMP. METAB OLIC PANEL (14) globulin, total 2.8 g/dL 1.5-4. 5 Not Available [facility] ([facility]) [address] [facility] [place], [address], 05/07/2025 09:11:41 05/06/2005/07/2025 COMP. METAB OLIC PANEL (14) bilirubin, total 0.3 mg/dL 0.0-1. 2 normal Not Available [facility] ([facility]) [address] [facility] [place], [address], 05/07/2025 09:11:41 05/06/20 25 05/07/2025 COMP. METAB OLIC PANEL (14) alkaline phosphatase 99 IU/L 49-135 normal Ple ase note refer ence inter myra coe e Not Available [facility] ([facility]) [address] [facility] [place], [address], 05/07/2025 09:11:41 05/06/2005/07/2025 COMP. METAB OLIC PANEL (14) AST (SGOT) 18 IU/L 0-40 normal Not Available [facility] ([facility]) [address] [facility] [place], [address], 05/07/2025 09:11:41 05/06/2005/07/2025 COMP. METAB OLIC PANEL (14) ALT (SGPT) 12 IU/L 0-32 normal Not Available [facility] ([facility]) [address] [facility] [place], [address], 05/07/2025 09:11:41 05/06/20 25 05/07/2025 LIPID PANEL cholesterol, total 167 mg/dL 100-19 9 normal Not Available [facility] ([facility]) [address] [place], [address], 05/07/2025 09:11:41 05/06/20 25 05/07/2025 LIPID PANEL triglyceride s 137 mg/dL 0-149 normal Not Available [facility] ([facility]) [address] [facility], [place], [address], 05/07/2025 09:11:41 05/06/20 25 05/07/2025 LIPID PANEL HDL cholesterol 55 mg/dL >39 normal Not Available [facility] ([facility]) [address] [place], [address], 05/07/2025 09:11:41 05/06/20 25 05/07/2025 LIPID PANEL VLDL cholesterol venkatesh 24 mg/dL 5-40 Not Available [facility] ([facility]) [address] [facility], [place], [address], 05/07/2025 09:11:41 05/06/2005/07/2025 LIPID PANEL LDL chol calc ([facility]) 88 mg/dL 0-99 Not Available [facility] ([facility]) [address] [place], [address], 05/07/2025 09:11:41 05/06/2005/07/2025 LIPID PANEL LDL calc comment: PAY STATION ATTENDANT Not Available [facility] ([facility]) [address] [facility], [place], [address], 05/07/2025 09:11:41 05/06/2005/07/2025 TSH TSH 2.740 uIU/m L 0.450- 4.500 normal Not Available [facility] ([facility]) [address] [place], [address], 05/07/2025 09:11:42 05/06/2005/07/2025 VITAM IN D, 25-HY DROXY vitamin D, [...] um and D. Sarmad loredo [place]: [facility] . 2. Ross willson [place], Mulugeta martinez [place], Max off-F errar i GOMEZ, et al. Evalu ation , treat ment, and preve ntion of vitam in D defic iency : an Endoc rine Socie ty clini venkatesh pract ice guide line. JCEM. 2010; 96(7) :1911 -30. Not Available [facility] ([facility]) [address], [place], [address], 05/07/2025 09:11:42 04/15/2004/15/2025 XR, forea rm, 2 view No observ ation record ed. [address], [place], [address], 04/16/2025 08:45:33 04/15/2004/15/2025 XR, hand, 3 or more view No observ ation record ed. [address], [place], [address], 04/16/2025 08:45:05 04/15/2004/15/2025 XR, wrist No observ ation record ed. [address], [place], [address], 04/16/2025 08:44:41 07/07/2007/03/2025 MAMMO , diagn ostic , bilat eral No observ ation record ed. [email or web address] [facility] [address], [place], [address], 07/07/2025 10:56:08 07/07/2007/03/2025 US, estellaas t No observ ation record ed. [email or web address] [facility] [address], [place], [address], 07/07/2025 10:55:20 07/15/2007/15/2025 betty r monit or No observ ation record ed. [address], [place], [address], 07/15/2025 09:26:37 Result Notes None recorded. Problems Name Problem SNOMED Code Status Onset Date Resolution Date Notes Provider Name and Address Organization Details Recorded Time Depressiv e disorder 63410157 Active 2023 ROSIE Mena [address] [place] [address], [address], [employer] 5 10:29:07 Osteoarth ritis 243486598 Active 2023 ROSIE Mena [address] [place] [address], [address], [place] [employer] 5 10:29:00 Gout 64757722 Active 2023 ROSIE Mena [address] [place] [address], [address] 8, [place] [employer] 5 10:29:01 Acute kidney injury 79940316 Active 2023 ROSIE Mena [address] [place] [address], [address] 8, [employer] 5 10:29:05 Serum creatinin e above reference range 041209856 Active 2023 ROSIE Mena [address] [place] [address], [address] 8, [employer] 5 10:28:58 Congestiv e heart failure 99843870 Active 2023 ROSIE Mena [address] [place] [address], [address] 8, [employer] 5 10:28:50 Essential hypertens ion 59328911 Active 2023 ROSIE Mena [address] [place] [address], [address] 8, [employer] 5 10:29:09 Acute bronchiti s 31996263 Completed 202309/16/2024 ROSIE Mena [address] [place] [address], [address] 8, [employer] 5 10:28:53 Chronic kidney disease 117621520 Active 2024 ROSIE Mena [address] [place] [address], [address] 8, [employer] 5 17:12:34 Heart murmur 62081016 Active 2024 ROSIE Mena [address] [place] [address], [address], [employer] 5 08:41:01 Low blood pressure 24964729 Active 2024 ROSIE Mena [address] [place] [address], [address] 8, [employer] 5 11:36:44 Closed fracture of left wrist 009359546524 52837 Active 2024 ROSIE Mena [address] [place] [address], [address] 8, [employer] 5 11:36:55 Obstructi ve sleep apnea syndrome 33685440 Active 2024 ROSIE Mena [address] [place] [address], [address] 8, [employer] 08:31:33 Clinical finding Active 2024 ROSIE Mena [address] [place], [address], [employer] 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 10:37:09 Problem Notes None recorded. Procedures Surgical History Date Name Laterality Status Provider Name and Address Organization Details Recorded Time 07/03/20 Most Recent Mammogram completed [employer]. 07/15/2025 08:03:10 12/17/19 Date of Last Pap Smear completed [employer]. 09/16/2024 10:31:23 Joint Replacement completed alike. 06/14/2024 10:17:21 Tonsillectomy completed [employer]. 06/14/2024 10:17:21 Cardiac Surgery completed [employer]. 06/14/2024 10:17:21 Gallbladder Surgery completed [employer]. 06/14/2024 10:17:21 Imaging Results None recorded. Procedure Notes None recorded. Medical Equipment None Reported. Allergies Allergen ID Allergen Name Allergen Category Reaction Reaction Severity Criticality Documentation Date Start Date Code Code System Note Provider Name and Address Organization Details Recorded Time 62459 Substance with sulfonami de structure and antibacte rial mechanism of action (substanc e) medicatio n itching nausea rash Not available Not available Not available high 06/14/20242024 29932 8003 SNOMED [employer] 08:02:17 49363 amoxicill in medicatio n Not available Not available low 07/14/20252021 723 RxNorm Patie nt state s she is only aller gic to Biaxi n unrec ogniz ed react ion (text : Unkno wn - Patie nt state s they do not know rxn detai ls, code: 03555 5006) (from [facility]) Not Available [employer] - External Data Service - prod 5 08:34:16 96298 clarithro mycin medicatio n Not available Not available Not available 07/14/2025 18814 RxNorm unrec ogniz ed react ion (text : Adver se react ion to subst ance, code: 99649 0009) (from [facility]) Not Available [facility] External Data Service - prod 5 08:34:16 Medications Name Sig Start Date Stop Date [...] 4 TIMES A DAY FOR 7 DAYS 07/15 completed Not Available Not Available Not Available [...] ONE TABLET BY MOUTH ONCE A DAY 07/15 completed Not Available Not Available Not Available cyanocobala min (vit B-12) 1,000 mcg tablet Take 1 tablet every day by oral route for 90 days. 2024 active Not Available Not Available Not Avai lable allopurinol 100 mg tablet TAKE 1 TABLET BY MOUTH ONCE A DAY FOR GOUT active Not Available Not Available No t Available sulfamethox azole 800 mg-trimetho prim 160 mg tablet 06/14 completed Not Available Not Available Not Available omeprazole 40 mg capsule,del ayed release TAKE 1 CAPSULE BY MOUTH ONCE A DAY active Not Available Not Available No t Available spironolact one 25 mg tablet TAKE 1 TABLET BY MOUTH ONCE A DAY active Not Available Not Available No t Available ketorolac 0.5 % eye drops STARTING 3 DAYS BEFORE SURGERY USE 1 DROP INTO OPERATIVE EYE 4 TIMES A DAY FOR 10 DAYS THEN DECREASE TO 2 TIMES A DAY FOR 14 DAYS 07/15 completed Not Available Not Available Not Available cefadroxil 500 mg capsule 06/14 completed Not Available Not Available Not Available potassium chloride ER 20 mEq tablet,exte nded release(par t/cryst) TAKE ONE TABLET BY MOUTH 2 TIMES A DAY active Not Available Not Available No t Available prednisolon e acetate 1 % eye drops,suspe nsion INSTILL 1 DROP INTO OPERATIVE EYE 4 TIMES A DAY FOR 7 DAYS THEN DECREASE TO 2 TIMES A DAY FOR 14 DAYS 07/15 completed Not Available Not Available Not Available estradiol 1 mg tablet TAKE 1 TABLET BY MOUTH ONCE A DAY FOR 3 WEEKS active Not Available Not Available No t [...] FOR NAUSEA AND VOMITING FOR 4 DAYS 07/15 completed Not Available Not Available Not Available cefdinir 300 mg capsule TAKE 1 CAPSULE BY MOUTH 2 TIMES A DAY FOR 10 DAYS 05/06 completed Not Available Not Available Not Available doxycycline hyclate 100 mg tablet 06/14 completed Not Available Not Available Not Available progesteron e micronized 100 mg capsule TAKE 1 CAPSULE BY MOUTH ONCE A DAY active Not Available Not Available No t Available hydroxyzine pamoate 25 mg capsule TAKE 1 CAPSULE BY MOUTH AT BEDTIME active Not Available Not Available No t Available buprenorphi ne 8 mg-naloxone 2 mg sublingual tablet dissolve 2 and 1/2 tablets under the tongue once a day [...] day by oral route for 90 days. 07/15 completed Not Available Not Available Not Available Entresto 24 mg-26 mg tablet TAKE ONE [...] height Heart rate Body temperature Oxygen saturation Systolic And Diastolic Systolic And Diastolic Provider Name and Address Organization Details Last Updated DateTime 162.56 cm 84 /min 98.2 [degF] 92 % 88/52 mm[Hg] 90/53 mm[Hg] Mirtha Payne [place] [employer]. 11:11:16 Social History Question Answer Notes LastModified by Organizat ion Details LastModified Time Tobacco Smoking Status Never Smoker Cherie vera Brenco. 06/14/2024 10:17:20 Do You Have An Advance [...] Caffeine Consumption? Heavy Information not available 06/14/2024 Are You A Caregiver? No Information not available 07/15/2025 What Type Of Chainstitch Zipper Setter Do You Use? None Information not available [...] Or The Highest Degree You Have Received? [id number] Information not available 06/14/2024 Have There Been Any Changes To Your Family Or Social Situation? No Information no t available 06/14/2024 Are There Any Guns Present In Your Home? No Information not available 06/14/2024 Which Of Your Hands Is Dominant? Right Information not available 06/14/2024 What Is Your Home Situation? Other Information not available 06/14/2024 Where Do You Live? Apartment Information not available 07/15/2025 Do You Have A Medical Power Of Simulation Software Engineer? No Information not available 06/14/2024 What Was The Date Of Your Most Recent Tobacco Screening? 07/15/2025 Information not available 07/15/2025 Do You Have Any Pets? Yes Information not available 06/14/2024 What Is Your Relationship Status? Information not available 06/14/2024 Have You Repeated Any Grades? Yes Information not available 06/14/2024 Do You Wear A Seatbelt When Driving Or As A Passenger? Yes Information not available 07/15/2025 Do You Use Your Seat Belt Or [...] No Information not available 06/14/2024 Do You Feel Safe In Your Home? Yes Information not available 07/15/2025 Do You Have Any Dietary Restrictions? No [...] anxious, or unable to sleep at night)? [id number] Information not available 08/12/2024 Do you have [...] History Condition Response Coronary Artery Disease Y Gout Y Other N Kidney Stones N Blood Diseases N Hyperthyroidism N Breast Cancer N Blood Transfusion N Emergency room visit since last appointm ent. N Hypothyroidism N Dermatologic Disorders N Depression Y COPD N Lung Disease N Developmental or Behavioral [...] Current Control Method Abstinence Most Recent Mammogram 07/03/2025 Age at First Child 16 Obstetrics History GPAL:G 3 P 3 0 0 3 Type Value Multiple Births 0 Full Term 3 Induced 0 Spontaneous 0 Premature 0 Living 3 Ectopics 0 Total 3 Immunizations Vaccine Type Date Status Note Provider Nam e and Address Organization Details Recorded Time COVID-19, mRNA, LNP-S, PF, 30 mcg/0.3 mL dose 09/08/2021 completed Cherie Vice null, [employer] 08/12/2024 14:57:31 COVID-19, mRNA, LNP-S, PF, 30 mcg/0.3 mL dose 08/11/2021 completed Cherie Vice null, [employer] 08/12/2024 14:57:31 COVID-19, mRNA, LNP-S, PF, 30 mcg/0.3 mL dose, jayce-sucrose 03/28/2022 completed Cherie Vice null, [employer] 08/12/2024 14:57:31 tetanus toxoid, adsorbed 11/09/2009 completed Cherie Vice null, [employer] 08/12/2024 14:57:31 Hep A-Hep B 01/25/2024 completed Cherie Vice null, [employer] 08/12/2024 14:57:31 Hep A-Hep B 04/24/2024 completed Cherie Vice null, [employer] 08/12/2024 14:57:31 Past Encounters Encounter ID Performer Location Encounter Start Date Encounter Closed Date Diagnosis/Indication Diagnosis SNOMED-CT Code Diagnosis ICD10 Code Diagnosis IMO Codes Diagnosis Note [id number] ROSIE Mena [facility] [address] [place] [address] 05/06/2025 10:41:05 05/06/2025 11:45:49 Body mass index 40+ - severely obese 904787652 Z68.42 079031 Screening mammography 24 524578 Z12.31 [id number] Screening for malignant neoplasm of colon 889353234 Z12.11 286069 Amnesia 64864299 R41.3 25386 Vertigo 999342603 R42 66657 Low blood pressure 96592 003 I95.9 [id number] Decrease Entresto, Bumex and spironolac tone by 1/2 until she is able to see cardiology Closed fra cture of left wrist 8627438776 7809971 S62.102A [id number] Health Concerns Section Related Observation LastModified by Organization Detai ls LastModified Time None Recorded Concern Status LastModified by Organization Details LastModified Time None Recorded Payers Encounter Date Sequence Insurance Name Policy Number Policy Jonas Covered Member ID Jonas Member ID Guarantor Name 05/06/2025 1 [facility] (MEDICAID HMO) Lesia G Espinoza [id number] Lesia Doran Notes Date Note Type Note [...] the left wrist currently. ROSIE Mena [address] [place], [address], [facility] [employer] [facility], [facility]. 05/06/2025 15:38:58 OBGyn Episode No OBEpisode recorded.
--- OUTSIDE RECORDS SUMMARY | 2025-07-23 07:46 | XMS_ITS | Data Portability ---
Author Organization [facility] Address [address] [place] [address] Assessment No assessment recorded. Plan of Treatment Reminders Order Date Submit Date Provider Last Modified By Organization Details Last Modified Time Details Appointments None recorded. Lab unlisted lab - toxassure flex 19, [id number] 2024 025 JOSE GUADALUPEMRI [facility] ([place]), [address] [place] [address], [address], 5 01:06:09 CBC w/ auto diff 2024 025 JOSE GUADALUPEMRI [facility] ([place]), [facility] [place], [address], 5 19:07:26 CMP, serum or plasma 2024 025 HAMPDEN SYDNEY [facility] [address] [place] [address], [address], 5 15:07:56 unlisted lab - alcohol, ethyl (ethanol) 2024 025 JOSE [facility]UPEMRI [facility] [address] [place] [address], [address], 5 19:07:29 HIV 1 + 2, meaningful use set 2024 025 JOSE GUADALUPEMRI [facility] [address] [place] [address], [address], 5 15:07:57 lipid panel, serum 2024 025 HAMPDEN SYDNEY [facility] ([place]), [address] [facility], [place], [address], 5 09:11:41 CMP, serum or plasma 2024 025 [facility]PD[facility] SYDNEY [facility] [address] [place], [address], 5 09:11:41 CBC w/ auto diff 2024 025 [facility]PD[facility] SYDNEY [facility]), [address] [facility], [place], [address], 5 09:11:40 vitamin D, 25-hydroxy , total, serum 2024 025 [facility] ([place]), [address] [place], [address], 5 09:11:42 TSH, ultra-sens itive, serum 2024 025 [facility] ([place]), [address] [place], [address], 5 09:11:42 CBC w/ auto diff [address] (Lab Registration) , [address] [place], [address], 5 13:14:37 BMP, serum or plasma [address] (Lab Registration) , [address] [place], [address], 5 13:14:37 BMP, serum or plasma 2024 025 [facility]PDEN SYDNEY [facility]), [address] [place], [address], 5 12:08:08 rapid flu (A+B) 2023 024 [facility], [address] [facility], [place], [address], 4 16:19:25 rapid SARS CoV 2 Ag, QL, IA, upper respirator y specimen 2023 024 [facility], [address] [facility], [place], [address], 4 16:19:14 Referral neurologis t referral 2024 025 [email or web address] Polly Dunog MD, [address], [place], [address], 5 10:45:[address] referral [address] [facility], [address], [place], [address], 5 15:26:43 Procedures colonoscop y screening (PROC) 2024 025 rachelle Draper MD, [address], [place], [address], 5 14:56:19 electrocar diogram, routine ECG, 12 leads min; interpreta tion and report (PROC) 2024 025 [facility], [address] [facility], [place], [address], 5 11:45:27 stress echocardio gram (PROC) [address] ([facility]ly [facility]), [address], [place], [address], 5 12:24:47 colonoscop y screening (PROC) 2024 025 fantasma Draper MD, [address], [place], [address], 5 11:27:50 Surgeries None recorded. Imaging MRI, head, w/wo contrast [address] (Scheduling), [address], [place], [place], [address], 5 08:26:56 MR, angiogram, head + neck, w/wo contrast 2024 025 [facility] (X-Ray), [address], [place], [address], 17:18:42 holter monitor [address], [address] [facility], [place], [address], 09:26:38 home sleep study 2024 025 [facility] (Scheduling), [address], [place], [address], 04:23:28 CT, head + brain, w/o contrast 2024 025 [email or web address] [facility] Centralized Scheduling, [address] [place], [address], 13:27:13 MAMMO, screening, digital, bilateral 2024 025 [email or web address] [facility] Central[facility] Sched[facility], [address] [place], [address], 5 10:56:08 DEXA [address] (X-Ray), [address] [facility] [address], [place], [place], [address], 5 08:35:59 XR, lumbar spine - fall, LBP, left hip pain s/p right hip replacemen t [address] (Scheduling), [address], [place], [address], 5 17:43:44 XR, hip + pelvis, bilateral - fall, lbp, hip pain, s/p right hip replacemen t 2024 025 [facility] (Scheduling), [address], [place], [address], 5 17:12:02 Medication Orders Zithromax Z-Russel 250 mg tablet 2023 025 [facility], [address] [place] [address] [place], [id number], 5 10:30:20 prednisone 20 mg tablet 2023 025 [facility], [facility] [address] [place], [id number], 5 10:30:00 albuterol sulfate HFA 90 mcg/actuat ion aerosol inhaler 2023 024 [facility], [address] [place] [address] [place], [id number], 4 15:21:02 torsemide 100 mg tablet 2023 025 [email or web address] [facility], [address] [place] [address] [place], [id number], 5 11:18:34 Patient TargetsNo targets recorded. Patient Instructions Encounter Date Encounter Id Patient Instructions Last Modified By Organization Details Last Modified Time 08/12/2024 [id number] cough: care instructions Not available 08/12/2024 15:06:27 bronchitis: care instructions [email or web address] Not available 08/12/2024 15:19:12 heart failure: care instructions [email or web address] Not available 08/12/2024 15:19:12 learning about heart failure [email or web address] Not available 08/12/2024 15:19:13 09/16/2024 [id number] heart failure: care instructions [email or web address] Not available 09/16/2024 15:45:25 learning about heart failure [email or web address] Not available 09/16/2024 15:45:25 10/08/2024 [id number] low blood pressure: care instructions Not available 10/08/2024 09:05:46 heart murmur: care instructions Not available 10/08/2024 09:05:46 05/06/2025 [id number] mammogram: about this test [email or web address] Not available 05/06/2025 11:35:54 body mass index: care instructions Not available 05/06/2025 11:35:54 learning about healthy weight [email or web address] Not available 05/06/2025 11:35:54 low blood pressure: care instructions [email or web address] Not available 05/06/2025 11:38:46 07/15/2025 [id number] sleep apnea: car e instructions Not available 07/15/2025 08:32:22 HIV testing: car e instructions [email or web address] Not available 07/15/2025 09:43:36 Reason for Referral Neurologist Referral for Amn esia Referring Physician: Janice Fitzpatrick [facility], Encounter Date: 05/06/2025 [employer]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 Referring Physician: Janice Fitzpatrick [facility], Encounter Date: 05/06/2025 Results Created Date Observation Date Name Description Value Unit Range Abnormal Flag Note LastModifiedBy Organization Detail LastModifiedTime 08/12/20 24 08/12/2024 rapid SARS CoV 2 Ag, QL, IA, upper respi rator y speci men SARS CoV Ag negati ve Not Available [facility] [address] [facility], [place], [address], 08/12/2024 15:05:57 08/12/20 24 08/12/2024 rapid flu (A+B) Flu A negati ve Not Available [facility] [address] [facility], [place], [address], 08/12/2024 15:05:53 08/12/20 24 08/12/2024 rapid flu (A+B) Flu B negati ve Not Available [facility] [address] [facility], [place], [address], 08/12/2024 15:05:53 09/16/19 25 09/17/2024 BASIC METAB OLIC PANEL (8) glucose COMMEN T mg/dL Test not perfo rmed. Serum was in conta ct with cells when recei asha which will make the resul t inacc urate . Not Available [facility] ([facility]) [address] [place], [address], 09/17/2024 12:08:08 09/16/19 25 09/17/2024 BASIC METAB OLIC PANEL (8) BUN 34 mg/dL 6-24 above high normal Not Available [facility] ([facility]) [address] [place], [address], 09/17/2024 12:08:08 09/16/19 25 09/17/2024 BASIC METAB OLIC PANEL (8) creatinine 2.45 mg/dL 0.57-1 .00 above high normal Not Available [facility] ([facility]) [address] [place], [address], 09/17/2024 12:08:08 09/16/19 25 09/17/2024 BASIC METAB OLIC PANEL (8) eGFR 23 mL/mi n/1.7 3 >59 below low normal Not Available [facility] ([facility]) [address] [place], [address], 09/17/2024 12:08:08 09/16/19 25 09/17/2024 BASIC METAB OLIC PANEL (8) BUN/creatini ne ratio 14 9-23 normal Not Available [facility] ([facility]) [address] [place], [address], 09/17/2024 12:08:08 09/16/19 25 09/17/2024 BASIC METAB OLIC PANEL (8) sodium 138 mmol/ L 134-14 4 normal Not Available [facility] ([facility]) [address] [place], [address], 09/17/2024 12:08:08 09/16/19 25 09/17/2024 BASIC METAB OLIC PANEL (8) potassium COMMEN T mmol/ L Test not perfo rmed. Serum was in conta ct with cells when recei asha which will make the resul t inacc urate . Not Available [facility] ([facility]) [address] [place], [address], 09/17/2024 12:08:08 09/16/19 25 09/17/2024 BASIC METAB OLIC PANEL (8) chloride 92 mmol/ L 96-106 below low normal Not Available [facility] ([facility]) [address] [place], [address], 09/17/2024 12:08:08 09/16/19 25 09/17/2024 BASIC METAB OLIC PANEL (8) carbon dioxide, total 21 mmol/ L 20-29 normal Not Available [facility] ([facility] [address] [place], [address], 09/17/2024 12:08:08 09/16/19 25 09/17/2024 BASIC METAB OLIC PANEL (8) calcium 9.4 mg/dL 8.7-10 .2 normal Not Available [facility] ([facility]) [address] [place], [address], 09/17/2024 12:08:08 05/06/20 25 05/07/2025 CBC WITH DIFFE RENTI AL/PL ATELE T WBC 5.0 x10e3 /uL 3.4-10 .8 normal Not Available [facility] ([facility]) [address] [facility], [place], [address], 05/07/2025 09:11:40 05/06/20 25 05/07/2025 CBC WITH DIFFE RENTI AL/PL ATELE T RBC 2.99 x10e6 /uL 3.77-5 .28 below low normal Not Available [facility] ([facility] [address] [facility], [place], [address], 05/07/2025 09:11:40 05/06/2005/07/2025 CBC WITH DIFFE RENTI AL/PL ATELE T hemoglobin 9.4 g/dL 11.1-1 5.9 below low normal Not Available [facility] ([facility] [address] [place], [address], 05/07/2025 09:11:40 05/06/20 25 05/07/2025 CBC WITH DIFFE RENTI AL/PL ATELE T hematocrit 29.9 % 34.0-4 6.6 below low normal Not Available [facility] ([facility]) [address] [place], [address], 05/07/2025 09:11:40 05/06/2005/07/2025 CBC WITH DIFFE RENTI AL/PL ATELE T MCV 100 fL 79-97 above high normal Not Available [facility] ([facility]) [address] [place], [address], 05/07/2025 09:11:40 05/06/2005/07/2025 CBC WITH DIFFE RENTI AL/PL ATELE T MCH 31.4 pg 26.6-3 3.0 normal Not Available [facility] ([facility]) [address] [place], [address], 05/07/2025 09:11:40 05/06/20 25 05/07/2025 CBC WITH DIFFE RENTI AL/PL ATELE T MCHC 31.4 g/dL 31.5-3 5.7 below low normal Not Available [facility] ([facility] [address] [facility], [place], [address], 05/07/2025 09:11:40 05/06/2005/07/2025 CBC WITH DIFFE RENTI AL/PL ATELE T RDW 13.9 % 11.7-1 5.4 Not Available [facility] ([facility] [address] [facility], [place], [address], 05/07/2025 09:11:40 05/06/2005/07/2025 CBC WITH DIFFE RENTI AL/PL ATELE T platelets 313 x10e3 /uL 150-45 0 normal Not Available [facility] ([facility]) [address] [facility], [place], [address], 05/07/2025 09:11:40 05/06/20 25 05/07/2025 CBC WITH DIFFE RENTI AL/PL ATELE T neutrophils 68 % not estab. normal Not Available [facility] ([facility] [address] [facility], [place], [address], 05/07/2025 09:11:40 05/06/2005/07/2025 CBC WITH DIFFE RENTI AL/PL ATELE T lymphs 18 % not estab. normal Not Available [facility] ([facility] [address] [facility], [place], [address], 05/07/2025 09:11:40 05/06/2005/07/2025 CBC WITH DIFFE RENTI AL/PL ATELE T monocytes 10 % not estab. normal Not Available [facility] ([facility] [address] [facility], [place], [address], 05/07/2025 09:11:40 05/06/20 25 05/07/2025 CBC WITH DIFFE RENTI AL/PL ATELE T eos 4 % not estab. normal Not Available [facility] ([facility] [address] [place], [address], 05/07/2025 09:11:40 05/06/20 25 05/07/2025 CBC WITH DIFFE RENTI AL/PL ATELE T basos 0 % not estab. normal Not Available [facility] ([facility] [address] [facility], [place], [address], 05/07/2025 09:11:40 05/06/2005/07/2025 CBC WITH DIFFE RENTI AL/PL ATELE T immature cells SENIOR PROPERTY MANAGER Not Available [facility] ([facility]) [address] [place], [address], 05/07/2025 09:11:40 05/06/2005/07/2025 CBC WITH DIFFE RENTI AL/PL ATELE T neutrophils (absolute) 3.4 x10e3 /uL 1.4-7. 0 normal Not Available [facility] ([facility] [address] [place], [address], 05/07/2025 09:11:40 05/06/20 25 05/07/2025 CBC WITH DIFFE RENTI AL/PL ATELE T lymphs (absolute) 0.9 x10e3 /uL 0.7-3. 1 normal Not Available [facility] ([facility] [address] [place], [address], 05/07/2025 09:11:40 05/06/20 25 05/07/2025 CBC WITH DIFFE RENTI AL/PL ATELE T monocytes(ab solute) 0.5 x10e3 /uL 0.1-0. 9 normal Not Available [facility] ([facility] [address] [place], [address], 05/07/2025 09:11:40 05/06/20 25 05/07/2025 CBC WITH DIFFE RENTI AL/PL ATELE T eos (absolute) 0.2 x10e3 /uL 0.0-0. 4 normal Not Available [facility] ([facility] [address] [facility], [place], [address], 05/07/2025 09:11:40 05/06/20 25 05/07/2025 CBC WITH DIFFE RENTI AL/PL ATELE T baso (absolute) 0.0 x10e3 /uL 0.0-0. 2 normal Not Available [facility] ([facility] [address] [facility], [place], [address], 05/07/2025 09:11:40 05/06/20 25 05/07/2025 CBC WITH DIFFE RENTI AL/PL ATELE T immature granulocytes 0 % not estab. Not Available [facility] ([facility] [address] [facility], [place], [address], 05/07/2025 09:11:40 05/06/20 25 05/07/2025 CBC WITH DIFFE RENTI AL/PL ATELE T immature grans (abs) 0.0 x10e3 /uL 0.0-0. 1 Not Available [facility] ([facility] [address] [facility], [place], [address], 05/07/2025 09:11:40 05/06/2005/07/2025 CBC WITH DIFFE RENTI AL/PL ATELE T NRBC SENIOR PROPERTY MANAGER Not Available [facility] ([facility]) [address] [facility], [place], [address], 05/07/2025 09:11:40 05/06/2005/07/2025 CBC WITH DIFFE RENTI AL/PL ATELE T hematology comments: SENIOR PROPERTY MANAGER Not Available [facility] ([facility]) [address] [facility], [place], [address], 05/07/2025 09:11:40 05/06/20 25 05/07/2025 COMP. METAB OLIC PANEL (14) glucose 107 mg/dL 70-99 above high normal Not Available [facility] ([facility] [address] [place], [address], 05/07/2025 09:11:41 05/06/20 25 05/07/2025 COMP. METAB OLIC PANEL (14) BUN 30 mg/dL 6-24 above high normal Not Available [facility] ([facility] [address] [place], [address], 05/07/2025 09:11:41 05/06/20 25 05/07/2025 COMP. METAB OLIC PANEL (14) creatinine 1.44 mg/dL 0.57-1 .00 above high normal Not Available [facility] ([facility] [address] [place], [address], 05/07/2025 09:11:41 05/06/20 25 05/07/2025 COMP. METAB OLIC PANEL (14) eGFR 43 mL/mi n/1.7 3 >59 below low normal Not Available [facility] ([facility] [address] [place], [address], 05/07/2025 09:11:41 05/06/20 25 05/07/2025 COMP. METAB OLIC PANEL (14) BUN/creatini ne ratio 21 9-23 normal Not Available [facility] ([facility]) [address] [place], [address], 05/07/2025 09:11:41 05/06/20 25 05/07/2025 COMP. METAB OLIC PANEL (14) sodium 139 mmol/ L 134-14 4 normal Not Available [facility] ([facility] [address] [place], [address], 05/07/2025 09:11:41 05/06/20 25 05/07/2025 COMP. METAB OLIC PANEL (14) potassium 4.0 mmol/ L 3.5-5. 2 normal Not Available [facility] ([facility]) [address] [place], [address], 05/07/2025 09:11:41 05/06/20 25 05/07/2025 COMP. METAB OLIC PANEL (14) chloride 99 mmol/ L 96-106 normal Not Available [facility] ([facility]) [address] [place], [address], 05/07/2025 09:11:41 05/06/20 25 05/07/2025 COMP. METAB OLIC PANEL (14) carbon dioxide, total 20 mmol/ L 20-29 normal Not Available [facility] ([facility]) [address] [place], [address], 05/07/2025 09:11:41 05/06/20 25 05/07/2025 COMP. METAB OLIC PANEL (14) calcium 9.0 mg/dL 8.7-10 .2 normal Not Available [facility] ([facility]) [address] [place], [address], 05/07/2025 09:11:41 05/06/20 25 05/07/2025 COMP. METAB OLIC PANEL (14) protein, total 6.6 g/dL 6.0-8. 5 normal Not Available [facility] ([facility]) [address] [place], [address], 05/07/2025 09:11:41 05/06/20 25 05/07/2025 COMP. METAB OLIC PANEL (14) albumin 3.8 g/dL 3.8-4. 9 normal Not Available [facility] ([facility]) [address] [place], [address], 05/07/2025 09:11:41 05/06/20 25 05/07/2025 COMP. METAB OLIC PANEL (14) globulin, total 2.8 g/dL 1.5-4. 5 Not Available [facility] ([facility]) [address] [place], [address], 05/07/2025 09:11:41 05/06/20 25 05/07/2025 COMP. METAB OLIC PANEL (14) bilirubin, total 0.3 mg/dL 0.0-1. 2 normal Not Available [facility] ([facility]) [address] [place], [address], 05/07/2025 09:11:41 05/06/20 25 05/07/2025 COMP. METAB OLIC PANEL (14) alkaline phosphatase 99 IU/L 49-135 normal Ple ase note refer ence jaye myra coe e Not Available [facility] ([facility]) [address] [facility] [place], [address], 05/07/2025 09:11:41 05/06/20 25 05/07/2025 COMP. METAB OLIC PANEL (14) AST (SGOT) 18 IU/L 0-40 normal Not Available [facility] ([facility] [address] [place], [address], 05/07/2025 09:11:41 05/06/20 25 05/07/2025 COMP. METAB OLIC PANEL (14) ALT (SGPT) 12 IU/L 0-32 normal Not Available [facility] ([facility] [address] [place], [address], 05/07/2025 09:11:41 05/06/20 25 05/07/2025 LIPID PANEL cholesterol, total 167 mg/dL 100-19 9 normal Not Available [facility] ([facility]) [address] [place], [address], 05/07/2025 09:11:41 05/06/20 25 05/07/2025 LIPID PANEL triglyceride s 137 mg/dL 0-149 normal Not Available [facility] ([facility]) [address] [place], [address], 05/07/2025 09:11:41 05/06/20 25 05/07/2025 LIPID PANEL HDL cholesterol 55 mg/dL >39 normal Not Available [facility] ([facility] [address] [place], [address], 05/07/2025 09:11:41 05/06/20 25 05/07/2025 LIPID PANEL VLDL cholesterol venkatesh 24 mg/dL 5-40 Not Available [facility] ([facility]) [address] [place], [address], 05/07/2025 09:11:41 05/06/2005/07/2025 LIPID PANEL LDL chol calc ([facility]) 88 mg/dL 0-99 Not Available [facility] ([facility] [address] [place], [address], 05/07/2025 09:11:41 05/06/2005/07/2025 LIPID PANEL LDL calc comment: SENIOR PROPERTY MANAGER Not Available [facility] ([facility] [address] [facility], [place], [address], 05/07/2025 09:11:41 05/06/2005/07/2025 TSH TSH 2.740 uIU/m L 0.450- 4.500 normal Not Available [facility] ([facility]) [address] [place], [address], 05/07/2025 09:11:42 05/06/2005/07/2025 VITAM IN D, 25-HY DROXY vitamin D, 25-hydroxy 47.0 NG/mL 30.0-1 00.0 Vitam in D defic iency has been defin ed by the Liset jordan of Medic ine and an Endoc eloy Socikelsie ty pract ice guide line as a level of serum 25-OH vitam in D less than 20 ng/mL (1,2) . The Endoc raciele Socie ty went on to furth er defin e vitam in D insuf ficie ncy as a level betwe en 21 and 29 ng/mL (2). 1. IOM (Inst itute of Medic ine). 2010. Dieta ry refer ence fazal es for calci um and Lea loredo [place]: The [facility] . 2. Holic k MF, Binkl ey [place], Bisch off-F errar i GOMEZ, et al. Evalu ation , treat ment, and preve ntion of vitam in D defic iency : an Endoc rine Socie ty clini venkatesh pract ice guide line. JCEM. 2010; 96(7) :1911 -30. Not Available [facility] ([facility] [address] [place], [address], 05/07/2025 09:11:42 07/15/20 25 07/16/2025 COMP. METAB OLIC PANEL (14) glucose 105 mg/dL 70-99 above high normal Not Available [facility] ([facility] [address] [place], [address], 07/21/2025 19:07:27 07/15/20 25 07/16/2025 COMP. METAB OLIC PANEL (14) BUN 34 mg/dL 6-24 above high normal Not Available [facility] ([facility] [address] [place], [address], 07/21/2025 19:07:27 07/15/20 25 07/16/2025 COMP. METAB OLIC PANEL (14) creatinine 1.46 mg/dL 0.57-1 .00 above high normal Not Available [facility] ([facility]) [address] [place], [address], 07/21/2025 19:07:27 07/15/20 25 07/16/2025 COMP. METAB OLIC PANEL (14) eGFR 42 mL/mi n/1.7 3 >59 below low normal Not Available [facility] ([facility]) [address] [place], [address], 07/21/2025 19:07:27 07/15/20 25 07/16/2025 COMP. METAB OLIC PANEL (14) BUN/creatini ne ratio 23 9-23 normal Not Available [facility] ([facility] [address] [place], [address], 07/21/2025 19:07:27 07/15/20 25 07/16/2025 COMP. METAB OLIC PANEL (14) sodium 139 mmol/ L 134-14 4 normal Not Available [facility] ([facility] [address] [facility], [place], [address], 07/21/2025 19:07:27 07/15/20 25 07/16/2025 COMP. METAB OLIC PANEL (14) potassium 4.3 mmol/ L 3.5-5. 2 normal Not Available [facility] ([facility] [address] [place], [address], 07/21/2025 19:07:27 07/15/20 25 07/16/2025 COMP. METAB OLIC PANEL (14) chloride 100 mmol/ L 96-106 normal Not Available [facility] ([facility] [address] [place], [address], 07/21/2025 19:07:27 07/15/20 25 07/16/2025 COMP. METAB OLIC PANEL (14) carbon dioxide, total 24 mmol/ L 20-29 normal Not Available [facility] ([facility] [address] [place], [address], 07/21/2025 19:07:27 07/15/20 25 07/16/2025 COMP. METAB OLIC PANEL (14) calcium 9.5 mg/dL 8.7-10 .2 normal Not Available [facility] ([facility] [address] [place], [address], 07/21/2025 19:07:27 07/15/20 25 07/16/2025 COMP. METAB OLIC PANEL (14) protein, total 6.9 g/dL 6.0-8. 5 normal Not Available [facility] ([facility] [address] [place], [address], 07/21/2025 19:07:27 07/15/20 25 07/16/2025 COMP. METAB OLIC PANEL (14) albumin 4.0 g/dL 3.8-4. 9 normal Not Available [facility] ([facility]) [address] [place], [address], 07/21/2025 19:07:27 07/15/20 25 07/16/2025 COMP. METAB OLIC PANEL (14) globulin, total 2.9 g/dL 1.5-4. 5 Not Available [facility] ([facility] [place] [facility] [address] [place], [address], 07/21/2025 19:07:27 07/15/20 25 07/16/2025 COMP. METAB OLIC PANEL (14) bilirubin, total 0.4 mg/dL 0.0-1. 2 normal Not Available [facility] ([facility] [place] [facility] [address] [place], [address], 07/21/2025 19:07:27 07/15/20 25 07/16/2025 COMP. METAB OLIC PANEL (14) alkaline phosphatase 83 IU/L 49-135 normal Not Available [facility] ([facility] [address] [place], [address], 07/21/2025 19:07:27 07/15/20 25 07/16/2025 COMP. METAB OLIC PANEL (14) AST (SGOT) 14 IU/L 0-40 normal Not Available [facility] ([facility] [address] [place], [address], 07/21/2025 19:07:27 07/15/20 25 07/16/2025 COMP. METAB OLIC PANEL (14) ALT (SGPT) 9 IU/L 0-32 normal Not Available [facility] ([facility] [address] [facility], [place], [address], 07/21/2025 19:07:27 07/15/20 25 07/16/2025 HIV AB/P2 4 AG WITH REFLE X HIV Ab/P24 Ag screen Non Reacti ve non reacti ve HIV-1 /HIV- 2 antib odies and HIV-1 p24 antig en were NOT detec bahman. There is no labor atory evide nce of HIV infec tion. HIV Negat constance Not Available [facility] ([facility] [address] [facility], [place], [address], 07/16/2025 15:07:57 07/15/2007/20/2025 TOXAS SURE FLEX 19, UR summary report FINAL ===== ===== ===== ===== ===== ===== ===== ===== ===== ===== ===== ===== ===== === Bup/N aloxo ne, MS, Ur RFX Ida ol Bioma rkers , MS, Ur RFX Canna binoi ds, MS, Ur RFX ToxAs sure Flex 19, Ur ===== ===== ===== ===== ===== ===== ===== ===== ===== ===== ===== ===== ===== === Test Resul t Flag Units Drug Prese nt Ethyl Glucu ronid e 7813 ng/mg creat Ethyl Sulfa te 3465 ng/mg creat EtG and EtS are metab olite s of ethyl alcoh ol; EtG may be a ferme ntati on produ ct of gluco se, but EtS is not known to be forme d by ferme ntati on. Incid ental expos ure to alcoh ol may resul t in detec table level s of EtG and/o r EtS. EtG/E tS resul ts shoul d be inter prete d in the luis a xt of all avail able clini venkatesh and behav ioral infor matio n. Carbo xy-TH C 158 ng/mg creat Carbo xy-TH C is a metab olite of tetra hydro canna binol (THC) . Sourc e of THC is most commo nly herba l marij uana or marij uana- based produ cts, but THC is also prese nt in a sched uled presc ripti on medic ation . Trace amoun ts of THC can be prese nt in hemp and canna bidio l (CBD) produ cts. This test is not inten ded to disti nguis h betwe en delta -9-te trahy droca nnabi nol, the predo minan t form of THC in most herba l or marij uana- based produ cts, and delta -8-te trahy droca nnabi nol. Bupre norph ine 229 ng/mg creat Norbu preno rphin e 1035 ng/mg creat Nalox one 165 ng/mg creat Sourc e of bupre norph ine is a sched uled presc ripti on medic ation . Norbu preno rphin e is an expec bahman metab olite of bupre norph ine. ===== ===== ===== ===== ===== ===== ===== ===== ===== ===== ===== ===== ===== === Test Resul t Flag Units Ref Range Creat inine 31 mg/dL >=20 ===== ===== ===== ===== ===== ===== ===== ===== ===== ===== ===== ===== ===== === Decla red Medic ation s: Medic ation list was not provi ded. ===== ===== ===== ===== ===== ===== ===== ===== ===== ===== ===== ===== ===== === For clini venkatesh consu ltati on, pleas e call . ===== ===== ===== ===== ===== ===== ===== ===== ===== ===== ===== ===== ===== === Not Available [facility] ([facility] [place] [facility] [address] [place], [address], 07/20/2025 01:06:08 07/15/2007/20/2025 TOXAS SURE FLEX 19, UR pdf . Not Available [facility] ([facility] [address] [place], [address], 07/20/2025 01:06:08 07/15/2007/20/2025 TOXAS SURE FLEX 19, UR creatinine 31 mg/dL >=20 REFER ENCE RANGE : Ref Range >=20 Not Available [facility] ([facility] [place] [facility] [address] [place], [address], 07/20/2025 01:06:08 07/15/2007/20/2025 TOXAS SURE FLEX 19, UR amphetamines ia Negati ve NG/mL cutoff :300 Not Available [facility] ([facility] [place] [facility] [address] [place], [address], 07/20/2025 01:06:08 07/15/2007/20/2025 TOXAS SURE FLEX 19, UR benzodiazepi tamika Negati ve Not Available [facility] ([facility] [address] [place], [address], 07/20/2025 01:06:08 07/15/2007/20/2025 TOXAS SURE FLEX 19, UR diazepam Not Detect ed NG/mg _crea t Not Available [facility] ([facility] [place] [facility] [address] [facility], [place], [address], 07/20/2025 01:06:08 07/15/2007/20/2025 TOXAS SURE FLEX 19, UR desmethyldia zepam Not Detect ed NG/mg _crea t Not Available [facility] ([facility] [place] [facility] [address] [facility], [place], [address], 07/20/2025 01:06:08 07/15/2007/20/2025 TOXAS SURE FLEX 19, UR oxazepam Not Detect ed NG/mg _crea t Not Available [facility] ([facility] [place] [place] [facility] [address] [facility], [place], [address], 07/20/2025 01:06:08 07/15/2007/20/2025 TOXAS SURE FLEX 19, UR temazepam Not Detect ed NG/mg _crea t Expec bahman metab olism of benzo diaze pine class drugs : Paren t Drug Detec bahman Metab olite s ----- ----- - ----- ----- ----- ----- Diaze bernice: Desme thyld iazep am, Temaz epam, Oxaze bernice Chlor diaze poxid e: Desme thyld iazep am, Oxaze bernice Clora zepat e: Desme thyld iazep am, Oxaze bernice Halaz epam: Desme thyld iazep am, Oxaze bernice Temaz epam: Oxaze bernice Oxaze bernice: None Not Available [facility] ([facility] [place] [place] [facility] [address] [facility], [place], [address], 07/20/2025 01:06:08 07/15/2007/20/2025 TOXAS SURE FLEX 19, UR alprazolam Not Detect ed NG/mg _crea t Not Available [facility] ([facility] [place] [place] [facility] [address] [place], [address], 07/20/2025 01:06:08 07/15/20 25 07/20/2025 TOXAS SURE FLEX 19, UR alpha-hydrox yalprazolam Not Detect ed NG/mg _crea t Not Available [facility] ([facility] [place] [place] [facility] [address] [place], [address], 07/20/2025 01:06:08 07/15/2007/20/2025 TOXAS SURE FLEX 19, UR desalkylflur azepam Not Detect ed NG/mg _crea t Not Available [facility] ([facility] [place] [place] [facility] [address] [place], [address], 07/20/2025 01:06:08 07/15/2007/20/2025 TOXAS SURE FLEX 19, UR lorazepam Not Detect ed NG/mg _crea t Not Available [facility] ([facility] [place] [place] [facility] [address] [place], [address], 07/20/2025 01:06:08 07/15/2007/20/2025 TOXAS SURE FLEX 19, UR alpha-hydrox ytriazolam Not Detect ed NG/mg _crea t Not Available [facility] ([facility] [place] [place] [facility]) [address] [place], [address], 07/20/2025 01:06:08 07/15/2007/20/2025 TOXAS SURE FLEX 19, UR clonazepam Not Detect ed NG/mg _crea t Not Available [facility] ([facility] [place] [place] [facility] [address] [place], [address], 07/20/2025 01:06:08 07/15/2007/20/2025 TOXAS SURE FLEX 19, UR 7-aminoclona zepam Not Detect ed NG/mg _crea t Not Available [facility] ([facility] [place] [place] [facility] [address] [place], [address], 07/20/2025 01:06:08 11/25/07/20/2025 TOXAS SURE FLEX 19, UR midazolam Not Detect ed NG/mg _crea t Not Available [facility] ([facility] [place] [place] [facility] [address] [place], [address], 07/20/2025 01:06:08 07/15/2007/20/2025 TOXAS SURE FLEX 19, UR alpha-hydrox ymidazolam Not Detect ed NG/mg _crea t Not Available [facility] ([facility] [place] [place] [facility] [address] [place], [address], 07/20/2025 01:06:08 07/15/2007/20/2025 TOXAS SURE FLEX 19, UR flunitrazepa m Not Detect ed NG/mg _crea t Not Available [facility] ([facility][1]) [address] [place], [address], 07/20/2025 01:06:08 07/15/2007/20/2025 TOXAS SURE FLEX 19, UR desmethylflu nitrazepam Not Detect ed NG/mg _crea t Not Available [facility] ([facility][1]) [address] [place], [address], 07/20/2025 01:06:08 07/15/2007/20/2025 TOXAS SURE FLEX 19, UR cocaine metabolite ia Negati ve NG/mL cutoff :150 Not Available [facility] ([facility] [place] [place] [facility] [address] [place], [address], 07/20/2025 01:06:08 07/15/20 25 07/20/2025 TOXAS SURE FLEX 19, UR ethanol biomarkers ia COMMEN T NG/mL cutoff :500 Furth er testi ng indic ated Not Available [facility] ([facility] [place] [place] [facility] [address] [place], [address], 07/20/2025 01:06:08 07/15/20 25 07/20/2025 TOXAS SURE FLEX 19, UR cannabinoids ia COMMEN T NG/mL cutoff :20 Furth er testi ng indic ated Not Available [facility] ([facility] [place] [place] [facility] [address] [place] [address], [address], 07/20/2025 01:06:08 07/15/20 25 07/20/2025 TOXAS SURE FLEX 19, UR 6-acetylmorp luma ia Negati ve NG/mL cutoff :10 Not Available [facility] ([facility] [place] [place] [facility] [address] [place] [address], [address], 07/20/2025 01:06:08 07/15/20 25 07/20/2025 TOXAS SURE FLEX 19, UR opiate class ia Negati ve NG/mL cutoff :100 Not Available [facility] ([facility] [place] [place] [facility] [address] [place], [address], 07/20/2025 01:06:08 07/15/20 25 07/20/2025 TOXAS SURE FLEX 19, UR oxycodone class ia Negati ve NG/mL cutoff :100 Not Available [facility] ([facility] [place] [place] [facility] [address] [place] [address], [address], 07/20/2025 01:06:08 07/15/20 25 07/20/2025 TOXAS SURE FLEX 19, UR methadone ia Negati ve NG/mL cutoff :100 Not Available [facility] ([facility][1]) [address] [place], [address], 07/20/2025 01:06:08 07/15/2007/20/2025 TOXAS SURE FLEX 19, UR methadone mtb ia Negati ve NG/mL cutoff :100 Not Available [facility] ([facility] [place] [place] [facility] [address] [place] [address], [address], 07/20/2025 01:06:08 07/15/20 25 07/20/2025 TOXAS SURE FLEX 19, UR buprenorphin e ia COMMEN T NG/mL cutoff :5.0 Furth er testi ng indic ated Not Available [facility] ([facility] [place] [place] [facility] [address] [facility], [place], [address], 07/20/2025 01:06:08 07/15/20 25 07/20/2025 TOXAS SURE FLEX 19, UR fentanyl ia Negati ve NG/mL cutoff :2.0 Not Available [facility] ([facility] [place] [place] [facility] [address] [place], [address], 07/20/2025 01:06:08 07/15/20 25 07/20/2025 TOXAS SURE FLEX 19, UR tapentadol ia Negati ve NG/mL cutoff :200 Not Available [facility] ([facility] [place] [place] [facility] [address] [place], [address], 07/20/2025 01:06:08 07/15/20 25 07/20/2025 TOXAS SURE FLEX 19, UR propoxyphene ia Negati ve NG/mL cutoff :300 Not Available [facility] ([facility] [place] [place] [facility] [address] [place], [address], 07/20/2025 01:06:08 07/15/20 25 07/20/2025 TOXAS SURE FLEX 19, UR tramadol ia Negati ve NG/mL cutoff :200 Not Available [facility] ([facility] [place] [place] [facility] [address] [place], [address], 07/20/2025 01:06:08 07/15/20 25 07/20/2025 TOXAS SURE FLEX 19, UR methylphenid ate ia Negati ve NG/mL cutoff :100 Not Available [facility] ([facility] [place] [place] [facility] [address] [place], [address], 07/20/2025 01:06:08 07/15/20 25 07/20/2025 TOXAS SURE FLEX 19, UR barbiturates ia Negati ve NG/mL cutoff :200 Not Available [facility] ([facility] [place] [place] [facility] [address] [place], [address], 07/20/2025 01:06:08 07/15/20 25 07/20/2025 TOXAS SURE FLEX 19, UR phencyclidin e ia Negati ve NG/mL cutoff :25 Not Available [facility] ([facility] [place] [place] [facility] [address] [place], [address], 07/20/2025 01:06:08 07/15/20 25 07/20/2025 TOXAS SURE FLEX 19, UR gabapentin ia Negati ve ug/mL cutoff :1.0 Not Available [facility] ([facility] [place] [place] [facility] [address] [place], [address], 07/20/2025 01:06:08 07/15/20 25 07/20/2025 TOXAS SURE FLEX 19, UR anticonvulsa nts Negati ve Not Available [facility] ([facility] [place] [place] [facility] [address] [place], [address], 07/20/2025 01:06:08 07/15/20 25 07/20/2025 TOXAS SURE FLEX 19, UR pregabalin Not Detect ed Not Available [facility] ([facility] [place] [place] [facility] [address] [place], [address], 07/20/2025 01:06:08 07/15/20 25 07/20/2025 TOXAS SURE FLEX 19, UR carisoprodol ia Negati ve NG/mL cutoff :100 Not Available [facility] ([facility] [place] [place] [facility] [address] [place], [address], 07/20/2025 01:06:08 07/15/20 25 07/20/2025 BUP/N ALOXO NE, MS, UR RFX buprenorphin e +POSIT CONSTANCE+ Not Available [facility] ([facility] [place] [place] [facility] [address] [place] [address], [address], 07/20/2025 01:06:09 07/15/20 25 07/20/2025 BUP/N ALOXO NE, MS, UR RFX buprenorphin e 229 NG/mg _crea t Not Available [facility] ([facility] [place] [place] [facility] [address] [place], [address], 07/20/2025 01:06:09 07/15/2007/20/2025 BUP/N ALOXO NE, MS, UR RFX norbuprenorp luma 1035 NG/mg _crea t Not Available [facility] ([facility] [place] [place] [facility] [address] [place], [address], 07/20/2025 01:06:09 07/15/2007/20/2025 BUP/N ALOXO NE, MS, UR RFX N/B ratio 4.52 >=0.3 Not Available [facility] ([facility][1]) [address] [place], [address], 07/20/2025 01:06:09 07/15/2007/20/2025 BUP/N ALOXO NE, MS, UR RFX opiate antagonist +POSIT CONSTANCE+ Not Available [facility] ([facility] [place] [place] [facility] [address] [place], [address], 07/20/2025 01:06:09 07/15/2007/20/2025 BUP/N ALOXO NE, MS, UR RFX naloxone 165 NG/mg _crea t Not Available [facility] ([facility] [place] [facility] [address] [place], [address], 07/20/2025 01:06:09 07/15/2007/20/2025 IDA OL BIOMA RKERS , MS, UR RFX ethanol biomarkers +POSIT CONSTANCE+ Not Available [facility] ([facility] [address] [place], [address], 07/20/2025 01:06:09 07/15/20 25 07/20/2025 IDA OL BIOMA RKERS , MS, UR RFX ethyl glucuronide 7813 NG/mg _crea t Not Available [facility] ([facility] [place] [facility] [address] [facility], [place], [address], 07/20/2025 01:06:09 07/15/2007/20/2025 IDA OL BIOMA RKERS , MS, UR RFX ethyl sulfate 3465 NG/mg _crea t Not Available [facility] ([facility] [place] [place] [facility] [address] [facility], [place], [address], 07/20/2025 01:06:09 07/15/2007/20/2025 CANNA AFRICA DS, MS, UR RFX cannabinoids +POSIT CONSTANCE+ Not Available [facility] ([facility] [place] [facility] [address] [facility], [place], [address], 07/20/2025 01:06:10 07/15/2007/20/2025 CANNA AFRICA DS, MS, UR RFX carboxy-THC 158 NG/mg _crea t This test is not inten ded to faustoi lobo h yarelis en the metab olite s of delta -9-te trahy droca nnabi nol, the predo minan t form of THC in most herba l or marij uana- based produ cts, and delta -8-te trahy droca nnabi nol, a psych oacti ve compo und gener ally synth esize d from other canna binoi ds. Not Available [facility] ([facility] [place] [place] [facility] [address] [facility], [place], [address], 07/20/2025 01:06:10 07/15/2007/16/2025 CBC WITH DIFFE RENTI AL/PL ATELE T WBC 4.4 x10e3 /uL 3.4-10 .8 normal Not Available [facility] ([facility] [address] [facility], [place], [address], 07/21/2025 19:07:26 07/15/20 25 07/16/2025 CBC WITH DIFFE RENTI AL/PL ATELE T RBC 3.34 x10e6 /uL 3.77-5 .28 below low normal Not Available [facility] ([facility] [place] [address] [facility], [place], [address], 07/21/2025 19:07:26 07/15/20 25 07/16/2025 CBC WITH DIFFE RENTI AL/PL ATELE T hemoglobin 10.2 g/dL 11.1-1 5.9 below low normal Not Available [facility] ([facility] [place] [place] [facility] [address] [facility], [place], [address], 07/21/2025 19:07:26 07/15/20 25 07/16/2025 CBC WITH DIFFE RENTI AL/PL ATELE T hematocrit 32.7 % 34.0-4 6.6 below low normal Not Available [facility] ([facility] [place] [place] [facility] [address] [facility], [place], [address], 07/21/2025 19:07:26 07/15/20 25 07/16/2025 CBC WITH DIFFE RENTI AL/PL ATELE T MCV 98 fL 79-97 above high normal Not Available [facility] ([facility] [place] [facility] [address] [place], [address], 07/21/2025 19:07:26 07/15/20 25 07/16/2025 CBC WITH DIFFE RENTI AL/PL ATELE T MCH 30.5 pg 26.6-3 3.0 normal Not Available [facility] ([facility] [place] [facility] [address] [place], [address], 07/21/2025 19:07:26 07/15/20 25 07/16/2025 CBC WITH DIFFE RENTI AL/PL ATELE T MCHC 31.2 g/dL 31.5-3 5.7 below low normal Not Available [facility] ([facility] [place] [facility] [address] [place], [address], 07/21/2025 19:07:26 07/15/20 25 07/16/2025 CBC WITH DIFFE RENTI AL/PL ATELE T RDW 13.8 % 11.7-1 5.4 Not Available [facility] ([facility] [address] [facility], [place], [address], 07/21/2025 19:07:26 07/15/20 25 07/16/2025 CBC WITH DIFFE RENTI AL/PL ATELE T platelets 285 x10e3 /uL 150-45 0 normal Not Available [facility] ([facility] [address] [facility], [place], [address], 07/21/2025 19:07:26 07/15/20 25 07/16/2025 CBC WITH DIFFE RENTI AL/PL ATELE T neutrophils 60 % not estab. normal Not Available [facility] ([facility] [place] [address] [facility], [place], [address], 07/21/2025 19:07:26 07/15/20 25 07/16/2025 CBC WITH DIFFE RENTI AL/PL ATELE T lymphs 23 % not estab. normal Not Available [facility] ([facility] [address] [facility], [place], [address], 07/21/2025 19:07:26 07/15/20 25 07/16/2025 CBC WITH DIFFE RENTI AL/PL ATELE T monocytes 12 % not estab. normal Not Available [facility] ([facility] [place] [facility] [address] [facility], [place], [address], 07/21/2025 19:07:26 07/15/20 25 07/16/2025 CBC WITH DIFFE RENTI AL/PL ATELE T eos 4 % not estab. normal Not Available [facility] ([facility] [address] [place], [address], 07/21/2025 19:07:26 07/15/20 25 07/16/2025 CBC WITH DIFFE RENTI AL/PL ATELE T basos 1 % not estab. normal Not Available [facility] ([facility] [address] [place], [address], 07/21/2025 19:07:26 07/15/20 25 07/16/2025 CBC WITH DIFFE RENTI AL/PL ATELE T immature cells SENIOR PROPERTY MANAGER Not Available [facility] ([facility] [address] [place], [address], 07/21/2025 19:07:26 07/15/20 25 07/16/2025 CBC WITH DIFFE RENTI AL/PL ATELE T neutrophils (absolute) 2.6 x10e3 /uL 1.4-7. 0 normal Not Available [facility] ([facility] [address] [place], [address], 07/21/2025 19:07:26 07/15/20 25 07/16/2025 CBC WITH DIFFE RENTI AL/PL ATELE T lymphs (absolute) 1.0 x10e3 /uL 0.7-3. 1 normal Not Available [facility] ([facility] [address] [place], [address], 07/21/2025 19:07:26 07/15/20 25 07/16/2025 CBC WITH DIFFE RENTI AL/PL ATELE T monocytes(ab solute) 0.5 x10e3 /uL 0.1-0. 9 normal Not Available [facility] ([facility] [address] [place], [address], 07/21/2025 19:07:26 07/15/20 25 07/16/2025 CBC WITH DIFFE RENTI AL/PL ATELE T eos (absolute) 0.2 x10e3 /uL 0.0-0. 4 normal Not Available [facility] ([facility] [address] [place], [address], 07/21/2025 19:07:26 07/15/20 25 07/16/2025 CBC WITH DIFFE RENTI AL/PL ATELE T baso (absolute) 0.0 x10e3 /uL 0.0-0. 2 normal Not Available [facility] ([facility] [address] [facility], [place], [address], 07/21/2025 19:07:26 07/15/20 25 07/16/2025 CBC WITH DIFFE RENTI AL/PL ATELE T immature granulocytes 0 % not estab. Not Available [facility] ([facility] [address] [facility], [place], [address], 07/21/2025 19:07:26 07/15/20 25 07/16/2025 CBC WITH DIFFE RENTI AL/PL ATELE T immature grans (abs) 0.0 x10e3 /uL 0.0-0. 1 Not Available [facility] ([facility] [address] [facility], [place], [address], 07/21/2025 19:07:26 07/15/20 25 07/16/2025 CBC WITH DIFFE RENTI AL/PL ATELE T NRBC SENIOR PROPERTY MANAGER Not Available [facility] ([facility] [address] [facility], [place], [address], 07/21/2025 19:07:26 07/15/20 25 07/16/2025 CBC WITH DIFFE RENTI AL/PL ATELE T hematology comments: SENIOR PROPERTY MANAGER Not Available [facility] ([facility] [address] [facility], [place], [address], 07/21/2025 19:07:26 07/15/20 25 07/21/2025 ALCOH OL, ETHYL (ETHA NOL) alcohol, ethyl Negati ve g/dL Not Available [facility] ([facility] [address] [facility], [place], [address], 07/21/2025 19:07:29 07/15/20 25 07/21/2025 ALCOH OL, ETHYL (ETHA NOL) submitted specimen type: Commen t WHOLE BLOOD This test was devel oped and its perfo rmanc e michael cteri stics deter mined by [employer]. It has not been clear ed or appro asha by the Food and Drug Admin istra tion. Not Available [facility] ([facility] [address] [facility], [place], [address], 07/21/2025 19:07:29 07/15/2007/15/2025 KIMBERLY Alvarado NOTE please note Commen t The date and/o r time of colle ction was not indic ated on the requi sitio n as requi red by state and stephanie al law. The date of recei pt of the speci men was used as the colle ction date if not suppl ied. Not Available [facility] ([facility] [address] [facility], [place], [address], 07/21/2025 19:07:30 07/15/2007/22/2025 VITAM IN B12 AND FOLAT E vitamin B12 252 pg/mL 232-12 45 normal Not Available [facility] ([facility] [address] [facility], [place], [address], 07/22/2025 05:07:03 07/15/2007/22/2025 VITAM IN B12 AND FOLAT E folate (folic acid), serum 4.1 NG/mL >3.0 normal A serum folat e kristie ntrat ion of less than 3.1 ng/mL is consi dered to repre sent clini venkatesh defic iency . Not Available [facility] ([facility] [address] [facility], [place], [address], 07/22/2025 05:07:03 07/15/2007/21/2025 SNOW EN AUTHO RIZAT ION written authorizatio n Commen t Snow en Autho rizat ion Recei asha. Autho rizat ion recei asha from Cherie Nichols for [employer] st on 07-21 Logge d by Latrice gutierrez Not Available [facility] ([facility] [address] [facility], [place], [address], 07/22/2025 05:07:04 09/24/19 25 09/18/2024 XR, hip + pelvi s, bilat eral No observ ation record ed. [facility] (Med Record) [address], [place], [address], 09/24/2024 17:34:35 10/08/19 25 09/30/2024 elect alycia diogr am, routi ne ECG, 12 leads min; inter preta tion and repor t (PROC ) No observ ation record ed. [email or web address] [address], [place], [address], 10/15/2024 11:45:27 04/15/20 25 04/15/2025 XR, forea rm, 2 view No observ ation record ed. [email or web address] [address], [place], [place], [address], 04/16/2025 08:45:33 04/15/20 25 04/15/2025 XR, hand, 3 or more view No observ ation record ed. [email or web address] [address], [place], [address], 04/16/2025 08:45:05 04/15/20 25 04/15/2025 XR, wrist No observ [facility] ed. [email or web address] [address], [place], [address], 04/16/2025 08:44:41 07/07/20 25 07/03/2025 MAMMO , diagn ostic , bilat eral No observ ation record ed. [id number] [facility] [address], [place], [address], 07/07/2025 10:56:08 07/07/20 25 07/03/2025 caleb RANDOLPH No observ ation record ed. [email or web address] [facility] [address], [place], [address], 07/07/2025 10:55:20 07/15/2007/15/2025 betty r monit or No observ ation record ed. [facility] [address] [facility] [place], [address], 07/15/2025 09:26:37 Result Notes None recorded. Problems Name Problem SNOMED Code Status Onset Date Resolution Date Notes Provider Name and Address Organization Details Recorded Time Depressiv e disorder 98448447 Active 2023 ROSIE Mena [address] [place] [address], [address] 8, [employer] 10:29:07 Osteoarth ritis 671317913 Active 2023 ROSIE Mena [address] [place] [address], 81072[address] 8, [employer] 10:29:00 Gout 67551049 Active 2023 ROSIE Mena [address] [place] [address], [address]2840[address]228 8, [employer] 10:29:01 Acute kidney injury 91528942 Active 2023 ROSIE Mena [address] [place] [address], [address]280 8, [employer] 10:29:05 Serum creatinin e above reference range 065060022 Active 2023 ROSIE Mena [address] [place] [address], [address] 8, [employer] 10:28:58 Congestiv e heart failure 39884202 Active 2023 ROSIE Mena [address] [place] [address], [address]169 8, [employer] 5 10:28:50 Essential hypertens ion 59535737 Active 2023 ROSIE Mena [address] [place] [address], 60[address] 8, [employer] 5 10:29:09 Acute bronchiti s 87305131 Completed 202309/16/2024 ROSIE Mena [address] [place] [address], [address] 8, [place] [employer] 5 10:28:53 Chronic kidney disease 148825471 Active 2024 ROSIE Mena [address] [place] [address], 06983-757 8, [place] [employer] 5 17:12:34 Heart murmur 03045577 Active 2024 ROSIE Mena [address] [place] [address], 23781[address]452 8, [employer] 5 08:41:01 Low blood pressure 40572183 Active 2024 ROSIE Mena [address] [place] [address], 57842[address]134 8, [place] [employer] 5 11:36:44 Closed fracture of left wrist 346112643265 55718 Active 2024 ROSIE Mena [address] [place] [address], 87514-598 8, [employer] 5 11:36:55 Obstructi ve sleep apnea syndrome 80221811 Active 2024 ROSIE Mena [address] [place] [address], 24628[address]686 8, [employer] 5 08:31:33 Clinical finding Active 2024 ROSIE Mena [address] [place] [address], 26035-436 8, [employer] 5 08:31:42 Cobalamin deficienc y 595903980 Active 2024 ROSIE Mena [address] [place] [address], 76833-607 8, [employer] 5 10:37:09 Problem Notes None recorded. Procedures Surgical History Date Name Laterality Status Provider Name and Address Organization Details Recorded Time 07/03/20 Most Recent Mammogram completed [employer] 07/15/2025 08:03:10 12/17/19 Date of Last Pap Smear completed [employer] 09/16/2024 10:31:23 Joint Replacement completed [email or web address] 06/14/2024 10:17:21 Tonsillectomy completed [employer] 06/14/2024 10:17:21 Cardiac Surgery completed [employer] 06/14/2024 10:17:21 Gallbladder Surgery completed [employer] 06/14/2024 10:17:21 Imaging Results None recorded. Procedure Notes None recorded. Medical Equipment None Reported. Allergies Allergen ID Allergen Name Allergen Category Reaction Reaction Severity Criticality Documentation Date Start Date Code Code System Note Provider Name and Address Organization Details Recorded Time 72815 Substance with sulfonami de structure and antibacte rial mechanism of action (substanc e) medicatio n itching nausea rash Not available Not available Not available high 06/14/20242024 03521 8003 SNOMED gauzz, [employer] 5 08:02:17 36286 amoxicill in medicatio n Not available Not available low 07/14/20252021 723 RxNorm Patie nt state s she is only aller gic to [place] n unrec ogniz ed react ion (text : Unkno wn - Patie nt state s they do not know rxn detai ls, code: 57164 5006) (from exter nal sourc e) Not Available jose guadalupe - External [employer] - prod 5 08:34:16 89317 clarithro mycin medicatio n Not available Not available Not available 07/14/2025 85019 RxNorm unrec ogniz ed react ion (text : Adver se react ion to subst ance, code: 28387 0009) (from [facility]) Not Available [facility] - External Data [employer] - prod 5 [...] mass index (BMI) Body weight Oxygen saturation Heart rate Body temperature Systolic And Diastolic Provider Name and Address Organization Details Last Updated DateTime 5 162.56 cm 46.5 kg/m2 837284. 53 g 96 % 82 /min 98.1 [degF] 100/66 mm[Hg] [facility] [employer] 5 10:20:28 Date Recorded Body height Body mass index (BMI) Body weight Heart rate Oxygen saturation Systolic And Diastolic Systolic And Diastolic Provider Name and Address Organization Details Last Updated DateTime 5 162.56 cm 48.9 kg/m2 709055. 83 g 84 /min 99 % 85/53 mm[Hg] 88/50 mm[Hg] Mirtha Payne [employer] 5 08:25:15 Date Recorded Body height Heart rate Body temperature Oxygen saturation Systolic And Diastolic Systolic And Diastolic Provider Name and Address Organization Details Last Updated DateTime 5 162.56 cm 84 /min 98.2 [degF] 92 % 88/52 mm[Hg] 90/53 mm[Hg] Mirthatanvir Payne [employer] 5 11:11:16 Date Recorded Body height Body mass index (BMI) Body weight Oxygen saturation Heart rate Systolic And Diastolic Systolic And Diastolic Provider Name and Address Organization Details Last Updated DateTime 5 162.56 cm 43.2 kg/m2 321308. 12 g 92 % 74 /min 82/52 mm[Hg] 86/56 mm[Hg] Cherie Nichols [employer] 5 08:11:37 Date Recorded Body height Body mass index (BMI) Body weight Heart rate Oxygen saturation Systolic And Diastolic Provider Name and Address Organization Details Last Updated DateTime 4 162.56 cm 47.7 kg/m2 430354. 68 g 96 /min 95 % 117/69 mm[Hg] Cherie Nichols [employer] 4 15:01:18 Social History Question Answer Notes LastModified by Organizat ion Details LastModified Time Tobacco Smoking Status Never Smoker Cherie Nichols [employer]. 06/14/2024 10:17:20 Do You Have An Advance [...] Information not available 07/15/2025 What Type Of Access Control Officer Do You Use? None Information not available [...] Or The Highest Degree You Have Received? SM11082-3 Information not available 06/14/2024 Have There Been [...] Do You Have A Medical Power Of Food And Beverage Cashier? No Information not available 06/14/2024 What Was [...] Functional Status Question Answer Note LastModified by [employer] Details LastModified Time Do you use [...] Mental Status Question Answer Note LastModified by [employer] Details LastModified Time Do you feel stressed (tense, restless, nervous, or anxious, or unable to sleep at night)? [id number] Information not available 08/12/2024 Do you have [...] Diseases N Hyperthyroidism N Blood Transfusion N COPD N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
--- OUTSIDE RECORDS SUMMARY | 2025-07-23 07:46 | XMS_ITS | Encounter Summary ---
Author Organization Healthcare Address [address] [place] [address] Care Team Providers Care Senior Sql Developer Name Role Phone Marko Norton MD Primary Care Provider [phone] Janice Fitzpatrick Primary Care Provider [phone] Encounter Details Date Type Department Care Team ([facility] st Contact Info) Description 12/17/2021 Orders Only External Location [address] [place] [address] Provider, External Social History Tobacco Use Types [...] documented as of this encounter Care Teams Senior Sql Developer Relationship Specialty Start Date End Date Marko Norton MD [address] [place] [address] PCP - General 01/01/21 12/19/21 Janice Fitzpatrick PA [address] [place] [address] PCP - General 12/20/21 documented as of this encounter
--- OUTSIDE RECORDS SUMMARY | 2025-07-23 07:46 | XMS_ITS | Continuity of Care Document ---
Author Organization [employer], [facility] Address [address] [place] [address] Assessment No assessment recorded. Plan of Treatment Reminders Order Date Submit Date Provider Last Modified By Organization Details Last Modified Time Details Appointments None recorded. Lab unlisted lab - toxassure flex 19, [id number] 2024 025 [facility] [place], [address], 5 01:06:09 CBC w/ auto diff 2024 025 [facility] [address] [place] [address], [address], 5 19:07:26 CMP, serum or plasma 2024 025 [place] [employer]), [address] [place] [address], [address], 5 15:07:56 unlisted lab - alcohol, ethyl (ethanol) 2024 025 [facility] [place], [address], 5 19:07:29 HIV 1 + 2, meaningful use set 2024 025 [facility] [address] [place] [address], [address], 15:07:57 Referral None recorded. Procedures None recorded. Surgeries None recorded. Imaging MRI, head, w/wo contrast [address] (Scheduling), [address], [place], [address], 08:26:56 MR, angiogram, head + neck, w/wo contrast 2024 [facility] (X-Ray), [address], [place], [place], [address], 17:18:42 holter monitor [address], [address] [facility], [place], [address], 09:26:38 home sleep study 2024 [facility] (Scheduling), [address], [place], [address], 04:23:28 Medication Orders None recorded. Patient TargetsNo targets recorded. Patient Instructions Encounter Date Encounter Id Patient Instructions Last Modified By Organization Details Last Modified Time 07/15/2025 [id number] sleep apnea: car e instructions [id number] Not available 07/15/2025 08:32:22 HIV testing: car e instructions [id number] Not available 07/15/2025 09:43:36 Reason for Referral None Reported. Results Created Date Observation Date Name Description Value Unit Range Abnormal Flag Note LastModifiedBy Organization Detail LastModifiedTime 07/15/2007/16/2025 COMP. METAB OLIC PANEL (14) glucose 105 mg/dL 70-99 above high normal Not Available [facility] ([facility]) [address] [facility], [place], [address], 07/21/2025 19:07:27 07/15/2007/16/2025 COMP. METAB OLIC PANEL (14) BUN 34 mg/dL 6-24 above high normal Not Available [facility] ([facility]) [address] [facility] [place], [address], 07/21/2025 19:07:27 07/15/20 25 07/16/2025 COMP. METAB OLIC PANEL (14) creatinine 1.46 mg/dL 0.57-1 .00 above high normal Not Available [facility] ([facility]) [address] [facility] [place], [address], 07/21/2025 19:07:27 07/15/20 25 07/16/2025 COMP. METAB OLIC PANEL (14) eGFR 42 mL/mi n/1.7 3 >59 below low normal Not Available [facility] ([facility]) [address] [facility], [place], [address], 07/21/2025 19:07:27 07/15/20 25 07/16/2025 COMP. METAB OLIC PANEL (14) BUN/creatini ne ratio 23 9-23 normal Not Available [facility] ([facility]) [address] [facility] [place], [address], 07/21/2025 19:07:27 07/15/20 25 07/16/2025 COMP. METAB OLIC PANEL (14) sodium 139 mmol/ L 134-14 4 normal Not Available [facility] ([facility]) [address] [facility] [place], [address], 07/21/2025 19:07:27 07/15/20 25 07/16/2025 COMP. METAB OLIC PANEL (14) potassium 4.3 mmol/ L 3.5-5. 2 normal Not Available [facility] ([facility]) [address] [facility] [place], [address], 07/21/2025 19:07:27 07/15/20 25 07/16/2025 COMP. METAB OLIC PANEL (14) chloride 100 mmol/ L 96-106 normal Not Available [facility] ([facility]) [address], [place], [address], 07/21/2025 19:07:27 07/15/20 25 07/16/2025 COMP. METAB OLIC PANEL (14) carbon dioxide, total 24 mmol/ L 20- normal Not Available [facility] ([facility]) [address] [place], [address], 07/21/2025 19:07:27 07/15/20 25 07/16/2025 COMP. METAB OLIC PANEL (14) calcium 9.5 mg/dL 8.7-10 .2 normal Not Available [facility] ([facility]) [address] [place], [address], 07/21/2025 19:07:27 07/15/20 25 07/16/2025 COMP. METAB OLIC PANEL (14) protein, total 6.9 g/dL 6.0-8. 5 normal Not Available [facility] ([facility]) [address] [place], [address], 07/21/2025 19:07:27 07/15/20 25 07/16/2025 COMP. METAB OLIC PANEL (14) albumin 4.0 g/dL 3.8-4. 9 normal Not Available [facility] ([facility]) [address] [place], [address], 07/21/2025 19:07:27 07/15/20 25 07/16/2025 COMP. METAB OLIC PANEL (14) globulin, total 2.9 g/dL 1.5-4. 5 Not Available [facility] ([facility]) [address] [place], [address], 07/21/2025 19:07:27 07/15/20 25 07/16/2025 COMP. METAB OLIC PANEL (14) bilirubin, total 0.4 mg/dL 0.0-1. 2 normal Not Available [facility] ([facility]) [address] [place], [address], 07/21/2025 19:07:27 07/15/20 25 07/16/2025 COMP. METAB OLIC PANEL (14) alkaline phosphatase 83 IU/L 49-135 normal Not Available [facility] ([facility]) [address] [place], [address], 07/21/2025 19:07:27 07/15/20 25 07/16/2025 COMP. METAB OLIC PANEL (14) AST (SGOT) 14 IU/L 0-40 normal Not Available [facility] ([facility]) [address] [place], [address], 07/21/2025 19:07:27 07/15/20 25 07/16/2025 COMP. METAB OLIC PANEL (14) ALT (SGPT) 9 IU/L 0-32 normal Not Available [facility] ([facility]) [address] [facility], [place], [address], 07/21/2025 19:07:27 07/15/20 25 07/16/2025 HIV AB/P2 4 AG WITH REFLE X HIV Ab/P24 Ag screen Non Reacti ve non reacti ve HIV-1 /HIV- 2 antib odies and HIV-1 p24 antig en were NOT detec bahman. There is no labor atory evide nce of HIV infec tion. HIV Negat constance Not Available [facility] ([facility]) [address] [facility], [place], [address], 07/16/2025 15:07:57 07/15/20 25 07/20/2025 TOXAS SURE FLEX 19, UR summary report [...] venkatesh consu ltati on, pleas e call [phone]. ===== ===== ===== ===== ===== ===== ===== ===== ===== ===== ===== ===== ===== === Not Available [facility] ([facility]) [address] [place], [address], 07/20/2025 01:06:08 07/15/20 25 07/20/2025 TOXAS SURE FLEX 19, UR pdf . Not Available [facility] ([facility]) [address] [facility], [place], [address], 07/20/2025 01:06:08 07/15/20 25 07/20/2025 TOXAS SURE FLEX 19, UR creatinine 31 mg/dL >=20 REFER ENCE RANGE : Ref Range >=20 Not Available [facility] [address] [place], [address], 07/20/2025 01:06:08 07/15/2007/20/2025 TOXAS SURE FLEX 19, UR amphetamines ia Negati ve NG/mL cutoff :300 Not Available [facility] ([facility]) [address] [place], [address], 07/20/2025 01:06:08 07/15/2007/20/2025 TOXAS SURE FLEX 19, UR benzodiazepi tamika Negati ve Not Available [facility] ([facility]) [address] [place], [address], 07/20/2025 01:06:08 07/15/2007/20/2025 TOXAS SURE FLEX 19, UR diazepam Not Detect ed NG/mg _crea t Not Available [facility] ([facility]) [address] [place], [address], 07/20/2025 01:06:08 07/15/20 25 07/20/2025 TOXAS SURE FLEX 19, UR desmethyldia zepam Not Detect ed NG/mg _crea t Not Available [facility] ([facility]) [address] [place], [address], 07/20/2025 01:06:08 07/15/2007/20/2025 TOXAS SURE FLEX 19, UR oxazepam Not Detect ed NG/mg _crea t Not Available [facility] ([facility]) [address] [place], [address], 07/20/2025 01:06:08 07/15/2007/20/2025 TOXAS SURE FLEX 19, [...] bernice Oxaze bernice: None Not Available [facility] ([facility]) [address] [place], [address], 07/20/2025 01:06:08 07/15/20 25 07/20/2025 TOXAS SURE FLEX 19, UR alprazolam Not Detect ed NG/mg _crea t Not Available [facility] ([facility]) [address] [place], [address], 07/20/2025 01:06:08 07/15/2007/20/2025 TOXAS SURE FLEX 19, UR alpha-hydrox yalprazolam Not Detect ed NG/mg _crea t Not Available [facility] ([facility]) [address] [place], [address], 07/20/2025 01:06:08 07/15/20 25 07/20/2025 TOXAS SURE FLEX 19, UR desalkylflur azepam Not Detect ed NG/mg _crea t Not Available [facility] ([facility]) [address] [place], [address], 07/20/2025 01:06:08 07/15/20 25 07/20/2025 TOXAS SURE FLEX 19, UR lorazepam Not Detect ed NG/mg _crea t Not Available [facility] ([facility]) [address] [place], [address], 07/20/2025 01:06:08 07/15/20 25 07/20/2025 TOXAS SURE FLEX 19, UR alpha-hydrox ytriazolam Not Detect ed NG/mg _crea t Not Available [facility] ([facility]) [address] [facility], [place], [address], 07/20/2025 01:06:08 07/15/2007/20/2025 TOXAS SURE FLEX 19, UR clonazepam Not Detect ed NG/mg _crea t Not Available [facility] ([facility]) [address] [facility], [place], [address], 07/20/2025 01:06:08 07/15/2007/20/2025 TOXAS SURE FLEX 19, UR 7-aminoclona zepam Not Detect ed NG/mg _crea t Not Available [facility] ([facility]) [address] [facility], [place], [address], 07/20/2025 01:06:08 07/15/2007/20/2025 TOXAS SURE FLEX 19, UR midazolam Not Detect ed NG/mg _crea t Not Available [facility] ([facility]) [address] [facility], [place], [address], 07/20/2025 01:06:08 07/15/2007/20/2025 TOXAS SURE FLEX 19, UR alpha-hydrox ymidazolam Not Detect ed NG/mg _crea t Not Available [facility] ([facility]) [address] [place], [address], 07/20/2025 01:06:08 07/15/2007/20/2025 TOXAS SURE FLEX 19, UR flunitrazepa m Not Detect ed NG/mg _crea t Not Available [facility] ([facility]) [address] [place], [address], 07/20/2025 01:06:08 07/15/2007/20/2025 TOXAS SURE FLEX 19, UR desmethylflu nitrazepam Not Detect ed NG/mg _crea t Not Available [facility] ([facility]) [address] [place], [address], 07/20/2025 01:06:08 07/15/20 25 07/20/2025 TOXAS SURE FLEX 19, UR cocaine metabolite ia Negati ve NG/mL cutoff :150 Not Available [facility] ([facility]) [address] [place], [address], 07/20/2025 01:06:08 07/15/20 25 07/20/2025 TOXAS SURE FLEX 19, UR ethanol biomarkers ia COMMEN T NG/mL cutoff :500 Furth er testi ng indic ated Not Available [facility] ([facility]) [address] [place], [address], 07/20/2025 01:06:08 07/15/20 25 07/20/2025 TOXAS SURE FLEX 19, UR cannabinoids ia COMMEN T NG/mL cutoff :20 Furth er testi ng indic ated Not Available [facility] ([facility]) [address] [place], [address], 07/20/2025 01:06:08 07/15/2007/20/2025 TOXAS SURE FLEX 19, UR 6-acetylmorp luma ia Negati ve NG/mL cutoff :10 Not Available [facility] ([facility]) [address] [place], [address], 07/20/2025 01:06:08 07/15/20 25 07/20/2025 TOXAS SURE FLEX 19, UR opiate class ia Negati ve NG/mL cutoff :100 Not Available [facility] ([facility]) [address] [place], [address], 07/20/2025 01:06:08 07/15/20 25 07/20/2025 TOXAS SURE FLEX 19, UR oxycodone class ia Negati ve NG/mL cutoff :100 Not Available [facility] ([facility]) [address] [place], [address], 07/20/2025 01:06:08 07/15/20 25 07/20/2025 TOXAS SURE FLEX 19, UR methadone ia Negati ve NG/mL cutoff :100 Not Available [facility] ([facility]) [address] [place] [address], [address], 07/20/2025 01:06:08 07/15/2007/20/2025 TOXAS SURE FLEX 19, UR methadone mtb ia Negati ve NG/mL cutoff :100 Not Available [facility] ([facility]) [address] [place], [address], 07/20/2025 01:06:08 07/15/2007/20/2025 TOXAS SURE FLEX 19, UR buprenorphin e ia COMMEN T NG/mL cutoff :5.0 Furth er testi ng indic ated Not Available [facility] ([facility]) [address] [place], [address], 07/20/2025 01:06:08 07/15/2007/20/2025 TOXAS SURE FLEX 19, UR fentanyl ia Negati ve NG/mL cutoff :2.0 Not Available [facility] ([facility]) [address] [place] [address], [address], 07/20/2025 01:06:08 07/15/2007/20/2025 TOXAS SURE FLEX 19, UR tapentadol ia Negati ve NG/mL cutoff :200 Not Available [facility] ([facility]) [address] [place], [address], 07/20/2025 01:06:08 07/15/20 25 07/20/2025 TOXAS SURE FLEX 19, UR propoxyphene ia Negati ve NG/mL cutoff :300 Not Available [facility] ([facility]) [address] [place] [address], [address], 07/20/2025 01:06:08 07/15/20 25 07/20/2025 TOXAS SURE FLEX 19, UR tramadol ia Negati ve NG/mL cutoff :200 Not Available [facility] ([facility]) [address] [place], [address], 07/20/2025 01:06:08 07/15/20 25 07/20/2025 TOXAS SURE FLEX 19, UR methylphenid ate ia Negati ve NG/mL cutoff :100 Not Available [facility] ([facility]) [address] [place], [address], 07/20/2025 01:06:08 07/15/20 25 07/20/2025 TOXAS SURE FLEX 19, UR barbiturates ia Negati ve NG/mL cutoff :200 Not Available [facility] ([facility]) [address] [place], [address], 07/20/2025 01:06:08 07/15/20 25 07/20/2025 TOXAS SURE FLEX 19, UR phencyclidin e ia Negati ve NG/mL cutoff :25 Not Available [facility] ([facility]) [address] [place], [address], 07/20/2025 01:06:08 07/15/20 25 07/20/2025 TOXAS SURE FLEX 19, UR gabapentin ia Negati ve ug/mL cutoff :1.0 Not Available [facility] ([facility]) [address] [place], [address], 07/20/2025 01:06:08 07/15/20 25 07/20/2025 TOXAS SURE FLEX 19, UR anticonvulsa nts Negati ve Not Available [facility] ([facility]) [address] [place] [address], [address], 07/20/2025 01:06:08 07/15/20 25 07/20/2025 TOXAS SURE FLEX 19, UR pregabalin Not Detect ed Not Available [facility] ([facility]) [address] [place], [address], 07/20/2025 01:06:08 07/15/2007/20/2025 TOXAS SURE FLEX 19, UR carisoprodol ia Negati ve NG/mL cutoff :100 Not Available [facility] ([facility]) [address] [place], [address], 07/20/2025 01:06:08 07/15/2007/20/2025 BUP/N ALOXO NE, MS, UR RFX buprenorphin e +POSIT CONSTANCE+ Not Available [facility] ([facility]) [address] [place], [address], 07/20/2025 01:06:09 07/15/2007/20/2025 BUP/N ALOXO NE, MS, UR RFX buprenorphin e 229 NG/mg _crea t Not Available [facility] ([facility]) [address] [place], [address], 07/20/2025 01:06:09 07/15/2007/20/2025 BUP/N ALOXO NE, MS, UR RFX norbuprenorp luma 1035 NG/mg _crea t Not Available [facility] ([facility]) [address] [place], [address], 07/20/2025 01:06:09 07/15/2007/20/2025 BUP/N ALOXO NE, MS, UR RFX N/B ratio 4.52 >=0.3 Not Available [facility] ([facility]) [address] [place], [address], 07/20/2025 01:06:09 07/15/2007/20/2025 BUP/N ALOXO NE, MS, UR RFX opiate antagonist +POSIT CONSTANCE+ Not Available [facility] ([facility]) [address] [place], [address], 07/20/2025 01:06:09 07/15/2007/20/2025 BUP/N ALOXO NE, MS, UR RFX naloxone 165 NG/mg _crea t Not Available [facility] ([facility]) [address] [place], [address], 07/20/2025 01:06:09 07/15/2007/20/2025 IDA OL BIOMA RKERS , MS, UR RFX ethanol biomarkers +POSIT CONSTANCE+ Not Available [facility] ([facility]) [address] [place], [address], 07/20/2025 01:06:09 07/15/2007/20/2025 IDA OL BIOMA RKERS , MS, UR RFX ethyl glucuronide 7813 NG/mg _crea t Not Available [facility] ([facility]) [address] [place], [address], 07/20/2025 01:06:09 07/15/2007/20/2025 IDA OL BIOMA RKERS , MS, UR RFX ethyl sulfate 3465 NG/mg _crea t Not Available [facility] ([facility]) [address] [place], [address], 07/20/2025 01:06:09 07/15/2007/20/2025 TREY LEGER DS, MS, UR RFX cannabinoids +POSIT CONSTANCE+ Not Available [facility] ([facility]) [address] [place], [address], 07/20/2025 01:06:10 07/15/2007/20/2025 TREY LEGER DS, MS, UR RFX carboxy-THC 158 NG/mg _crea t This test is not inten ded to disti lobo h parishwe en the metab olite s of delta -9-te trahy droca nnabi nol, the predo minan t form of THC in most herba l or marij uana- based produ cts, and delta -8-te elizabeth boyerca nnabi nol, a psych oacti ve compo und gener ally synth esize d from other canna binoi ds. Not Available [facility] ([facility]) [address] [place], [address], 07/20/2025 01:06:10 07/15/2007/16/2025 CBC WITH DIFFE RENTI AL/PL ATELE T WBC 4.4 x10e3 /uL 3.4-10 .8 normal Not Available [facility] ([facility]) [address] [place], [address], 07/21/2025 19:07:26 07/15/20 25 07/16/2025 CBC WITH DIFFE RENTI AL/PL ATELE T RBC 3.34 x10e6 /uL 3.77-5 .28 below low normal Not Available [facility] ([facility]) [address] [place], [address], 07/21/2025 19:07:26 07/15/20 25 07/16/2025 CBC WITH DIFFE RENTI AL/PL ATELE T hemoglobin 10.2 g/dL 11.1-1 5.9 below low normal Not Available [facility] ([facility]) [address] [place], [address], 07/21/2025 19:07:26 07/15/20 25 07/16/2025 CBC WITH DIFFE RENTI AL/PL ATELE T hematocrit 32.7 % 34.0-4 6.6 below low normal Not Available [facility] ([facility]) [address] [place], [address], 07/21/2025 19:07:26 07/15/20 25 07/16/2025 CBC WITH DIFFE RENTI AL/PL ATELE T MCV 98 fL 79-97 above high normal Not Available [facility] ([facility]) [address] [place], [address], 07/21/2025 19:07:26 07/15/20 25 07/16/2025 CBC WITH DIFFE RENTI AL/PL ATELE T MCH 30.5 pg 26.6-3 3.0 normal Not Available [facility] ([facility]) [address] [place], [address], 07/21/2025 19:07:26 07/15/20 25 07/16/2025 CBC WITH DIFFE RENTI AL/PL ATELE T MCHC 31.2 g/dL 31.5-3 5.7 below low normal Not Available [facility] ([facility]) [address] [place], [address], 07/21/2025 19:07:26 07/15/20 25 07/16/2025 CBC WITH DIFFE RENTI AL/PL ATELE T RDW 13.8 % 11.7-1 5.4 Not Available [facility] ([facility]) [address] [place], [address], 07/21/2025 19:07:26 07/15/20 25 07/16/2025 CBC WITH DIFFE RENTI AL/PL ATELE T platelets 285 x10e3 /uL 150-45 0 normal Not Available [facility] ([facility]) [address] [place], [address], 07/21/2025 19:07:26 07/15/20 25 07/16/2025 CBC WITH DIFFE RENTI AL/PL ATELE T neutrophils 60 % not estab. normal Not Available [facility] ([facility]) [address] [place], [address], 07/21/2025 19:07:26 07/15/20 25 07/16/2025 CBC WITH DIFFE RENTI AL/PL ATELE T lymphs 23 % not estab. normal Not Available [facility] ([facility]) [address] [place], [address], 07/21/2025 19:07:26 07/15/20 25 07/16/2025 CBC WITH DIFFE RENTI AL/PL ATELE T monocytes 12 % not estab. normal Not Available [facility] ([facility]) [address] [facility], [place], [address], 07/21/2025 19:07:26 07/15/20 25 07/16/2025 CBC WITH DIFFE RENTI AL/PL ATELE T eos 4 % not estab. normal Not Available [facility] ([facility]) [address] [place], [address], 07/21/2025 19:07:26 07/15/20 25 07/16/2025 CBC WITH DIFFE RENTI AL/PL ATELE T basos 1 % not estab. normal Not Available [facility] ([facility]) [address] [place], [address], 07/21/2025 19:07:26 07/15/20 25 07/16/2025 CBC WITH DIFFE RENTI AL/PL ATELE T immature cells [employer] Not Available [facility] ([facility]) [address] [place], [address], 07/21/2025 19:07:26 07/15/20 25 07/16/2025 CBC WITH DIFFE RENTI AL/PL ATELE T neutrophils (absolute) 2.6 x10e3 /uL 1.4-7. 0 normal Not Available [facility] ([facility]) [address] [place], [address], 07/21/2025 19:07:26 07/15/20 25 07/16/2025 CBC WITH DIFFE RENTI AL/PL ATELE T lymphs (absolute) 1.0 x10e3 /uL 0.7-3. 1 normal Not Available [facility] ([facility]) [address] [place], [address], 07/21/2025 19:07:26 11/25/20 25 07/16/2025 CBC WITH DIFFE RENTI AL/PL ATELE T monocytes(ab solute) 0.5 x10e3 /uL 0.1-0. 9 normal Not Available [facility] ([facility]) [address] [facility], [place], [address], 07/21/2025 19:07:26 07/15/20 25 07/16/2025 CBC WITH DIFFE RENTI AL/PL ATELE T eos (absolute) 0.2 x10e3 /uL 0.0-0. 4 normal Not Available [facility] ([facility]) [address] [place], [address], 07/21/2025 19:07:26 07/15/20 25 07/16/2025 CBC WITH DIFFE RENTI AL/PL ATELE T baso (absolute) 0.0 x10e3 /uL 0.0-0. 2 normal Not Available [facility] ([facility]) [address] [place], [address], 07/21/2025 19:07:26 07/15/20 25 07/16/2025 CBC WITH DIFFE RENTI AL/PL ATELE T immature granulocytes 0 % not estab. Not Available [facility] ([facility]) [address] [place], [address], 07/21/2025 19:07:26 07/15/20 25 07/16/2025 CBC WITH DIFFE RENTI AL/PL ATELE T immature grans (abs) 0.0 x10e3 /uL 0.0-0. 1 Not Available [facility] ([facility]) [address] [place], [address], 07/21/2025 19:07:26 07/15/20 25 07/16/2025 CBC WITH DIFFE RENTI AL/PL ATELE T NRBC [employer] Not Available [facility] ([facility]) [address] [place], [address], 07/21/2025 19:07:26 07/15/20 25 07/16/2025 CBC WITH DIFFE WENDY AL/PL ATELE T hematology comments: [employer] Not Available [facility] ([facility]) [address] [facility], [place], [address], 07/21/2025 19:07:26 07/15/20 25 07/21/2025 ALCOH OL, ETHYL (ETHA NOL) alcohol, ethyl Negati ve g/dL Not Available [facility] ([facility]) [address] [facility], [place], [address], 07/21/2025 19:07:29 07/15/20 25 07/21/2025 ALCOH OL, ETHYL (ETHA NOL) submitted specimen type: Commen t WHOLE BLOOD This test was devel oped and its perfo rmanc e michael cteri stics deter mined by [facility]. It has not been clear ed or appro asha by the Food and Drug Admin istra tion. Not Available [facility] ([facility]) [address] [facility], [place], [address], 07/21/2025 19:07:29 07/15/20 25 07/15/2025 PLEAS E NOTE please note Commen t The date and/o r time of colle ction was not indic ated on the requi sitio n as requi red by state and stephanie al law. The date of recei pt of the speci men was used as the colle ction date if not suppl ied. Not Available [facility] ([facility]) [address] [facility], [place], [address], 07/21/2025 19:07:30 07/15/20 25 07/22/2025 VITAM IN B12 AND FOLAT E vitamin B12 252 pg/mL 232-12 45 normal Not Available [facility] ([facility]) [address] [facility], [place], [address], 07/22/2025 05:07:03 07/15/20 07/22/2025 VITAM IN B12 AND FOLAT E folate (folic acid), serum 4.1 NG/mL >3.0 normal A serum folat e kristie ntrat ion of less than 3.1 ng/mL is consi dered to repre sent clini venkatesh defic iency . Not Available [facility] ([facility]) [address] [facility], [place], [address], 07/22/2025 05:07:03 07/15/20 25 07/21/2025 WRITT EN AUTHO RIZAT ION written authorizatio n Commsergo t Writt en Autho rizat ion Recei asha. Autho rizat ion recei asha from [facility] Cassandra on 07-21 Logge d by Latrice gutierrez Not Available [facility] ([facility]) [address] [facility], [place], [address], 07/22/2025 05:07:04 07/07/20 25 07/03/2025 MAMMO , diagn ostic , bilat eral No observ ation record ed. [email or web address], [place], [address], 07/07/2025 10:56:08 07/07/20 25 07/03/2025 US, breas t No observ ation record ed. [email or web address] [address], [place], [address], 07/07/2025 10:55:20 07/15/20 25 07/15/2025 betty r monit or No observ ation record ed. [address], [place], [address], 07/15/2025 09:26:37 Result Notes None recorded. Problems Name Problem SNOMED Code Status Onset Date Resolution Date Notes Provider Name and Address Organization Details Recorded Time Depressiv e disorder 98821575 Active 2023 ROSIE Mena [address] [place] [address], [phone], [employer] 10:29:07 Osteoarth ritis 832009666 Active 2023 ROSIE Mena [address] [place] [address], [phone] 8, [employer] 10:29:00 Gout 13652010 Active 2023 ROSIE Mena [address] [place] [address], [phone] 8, [employer] 10:29:01 Acute kidney injury [id number] Active 2023 [address]ena [address] [place] [address], 18935-456 8, MD [employer] 10:29:05 Serum creatinin e above reference range 715452349 Active 2023 ROSIE Mena [address] [place] [address], 65383-647 8, MD [employer] 10:28:58 Congestiv e heart failure 87888114 Active 2023 ROSIE Mena [address] [place] [address], 48344-228 8, MD [employer] 10:28:50 Essential hypertens ion 40651147 Active 2023 ROSIE Mena [address] [place] [address], 46086-200 8, MD [employer] 10:29:09 Acute bronchiti s 57331434 Completed 202309/16/2024 ROSIE Mena [address] [place] [address], 35097-525 8, MD [employer] 10:28:53 Chronic kidney disease 446622089 Active 2024 ROSIE Mena [address] [place] [address], 72838-473 8, MD [employer] 17:12:34 Heart murmur 51770622 Active 2024 ROSIE Mena [address] [place] [address], 78599-317 8, MD [employer] 08:41:01 Low blood pressure 77555112 Active 2024 ROSIE Mena [address] [place] [address], 35549-476 8, MD [employer] 11:36:44 Closed fracture of left wrist 730753430900 21532 Active 2024 ROSIE Mena [address] [place] [address], 17977-188 8, MD [employer] 11:36:55 Obstructi ve sleep apnea syndrome 83074419 Active 2024 ROSIE Mena [address] [place] [address], 79148-599 8, MD [employer] 08:31:33 Clinical finding Active 2024 ROSIE Mena [address] [place] [address], 38705-979 8, MD [employer] 08:31:42 Cobalamin deficienc y 414026796 Active 2024 ROSIE Mena [address] [place] [address], 20297-200 8, MD [employer] 10:37:09 Problem Notes None recorded. Procedures Surgical History Date Name Laterality Status Provider Name and Address Organization Details Recorded Time 07/03/20 Most Recent Mammogram completed [employer] 07/15/2025 08:03:10 12/17/19 Date of Last Pap Smear completed [employer] 09/16/2024 10:31:23 Joint Replacement completed [employer] 06/14/2024 10:17:21 Tonsillectomy completed [employer] 06/14/2024 10:17:21 Cardiac Surgery completed Cherie Vice [employer] 06/14/2024 10:17:21 Gallbladder Surgery completed Cherie [employer] 06/14/2024 10:17:21 Imaging Results None recorded. Procedure Notes None recorded. Medical Equipment None Reported. Allergies Allergen ID Allergen Name Allergen Category Reaction Reaction Severity Criticality Documentation Date Start Date Code Code System Note Provider Name and Address Organization Details Recorded Time 26726 Substance with sulfonami de structure and antibacte rial mechanism of action (substanc e) medicatio n itching nausea rash Not available Not available Not available high 06/14/20242024 46498 8003 SNOMED Cherie Vice null, [employer] 5 08:02:17 85118 amoxicill in medicatio n Not available Not available low 07/14/20252021 723 RxNorm Patie nt state s she is only aller gic to Biaxi n unrec ogniz ed react ion (text : Unkno wn - Patie nt state s they do not know rxn detai ls, code: 07878 5006) (from exter nal sourc e) Not Available jose guadalupe - External Data [employer] - prod 5 08:34:16 68368 clarithro mycin medicatio n Not available Not available Not available 07/14/2025 49743 RxNorm unrec ogniz ed react ion (text : Adver se react ion to subst ance, code: 15787 0009) (from exter nal sourc e) Not Available [...] Organization Details Last Updated DateTime 162.56 cm 43.2 kg/m2 390486. 12 g 92 % 74 /min 82/52 mm[Hg] 86/56 mm[Hg] Cherie [employer] 08:11:37 Social History Question Answer Notes LastModified by Organizat ion Details LastModified Time Tobacco Smoking Status Never Smoker Cherie [employer] 06/14/2024 10:17:20 Do You Have An Advance [...] Information not available 07/15/2025 What Type Of Sustainability Specialist Do You Use? None Information not available [...] Or The Highest Degree You Have Received? [id number] Information not available 06/14/2024 Have There Been [...] Do You Have A Medical Power Of Stripper Cutter Machine? No Information not available 06/14/2024 What Was [...] Functional Status Question Answer Note LastModified by [employer] ion Details LastModified Time Do you use [...] anxious, or unable to sleep at night)? [id number] Information not available 08/12/2024 Do you have [...] 30 mcg/0.3 mL dose 09/08/2021 completed Cherie vera, [facility] [employer] 08/12/2024 14:57:31 COVID-19, mRNA, LNP-S, PF, 30 mcg/0.3 mL dose 08/11/2021 completed Cherie Vice null, [employer] 08/12/2024 14:57:31 COVID-19, mRNA, LNP-S, PF, 30 mcg/0.3 mL dose, jayce-sucrose 03/28/2022 completed Cherie Vice null, [employer] 08/12/2024 14:57:31 tetanus toxoid, adsorbed 11/09/2009 completed Cherie Vice null, [employer] 08/12/2024 14:57:31 Hep A-Hep B 01/25/2024 completed Cherie Vice null, [employer] 08/12/2024 14:57:31 Hep A-Hep B 04/24/2024 completed Cherie Vice null, [employer] 08/12/2024 14:57:31 Past Encounters Encounter ID Performer Location Encounter Start Date Encounter Closed Date Diagnosis/Indication Diagnosis SNOMED-CT Code Diagnosis ICD10 Code Diagnosis IMO Codes Diagnosis Note [id number] ROSIE Mena [facility] [address] [place] [address] 07/15/2025 07:52:53 07/15/2025 09:10:53 Obstructive sleep apnea syndrome 78350266 G47.33 820436 Untreated - patient states Cpap was returned because she wasn't using it and can't get new one until she gets new sleep study Clinical finding [id number] 03 R55 76620 Patient missed appt for CTSees neuro next monthSaw cardio a few weeks ago but did not mention symptoms to themAdvise d patient that she should not be driving while these spells are occurring as she could cause grievous harm to herself and/or others History of renal failure 908132841 Z87.448 876086 Long-term current use of drug therapy 590326477 Z79.899 14583109 HIV screening 850556141 Z11.4 354194 Health Concerns Section Related Observation LastModified by Organization Detai ls LastModified Time None Recorded Concern Status LastModified by Organization Details LastModified Time None Recorded Payers Encounter Date Sequence Insurance Name Policy Number Policy Jonas Covered Member ID Jonas Member ID Guarantor Name 07/15/2025 1 [id number] [facility] (MEDICAID HMO) Lesia Doran [id number] Lesia Doran Notes Date Note Type Note Provider Name and Address Organization Details Recorded Time 07/15/2025 text/html ROS as noted in the HPI Patient states that she is having blackout spells. The other day she drove from home in [place] to daughter's house in [place] and got lost twice. States she almost [...] a family history of dementia. ROSIE Mena [address] [place] [address], [place], [address], [employer] 07/15/2025 13:00:53 OBGyn Episode No OBEpisode recorded.
--- OUTSIDE RECORDS SUMMARY | 2025-07-23 07:46 | XMS_ITS | Encounter Summary ---
Author Organization [facility] Address [address] [place] [address] Care Team Providers Care Rotary Screen Printing Machine Operator Name Role Phone Janice Fitzpatrick Primary Care Provider [phone] Encounter Details Date Type Department Care Team ([facility] st Contact Info) Description 12/31/2021 Community [facility] [address] [place] [address] Janice Fitzpatrick PA [address] [place], [place] [id number] Aneurysm of splenic artery (CMS/HCC) (Primary Dx) [...] documented as of this encounter Care Teams Rotary Screen Printing Machine Operator Relationship Specialty Start Date End Date Janice Fitzpatrick PA [address] [place] [address] PCP - General 12/20/21 documented as of this encounter
--- OUTSIDE RECORDS SUMMARY | 2025-07-23 07:46 | XMS_ITS | Encounter Summary ---
Author Organization [facility] Address [address] [place] [address] Care Team Providers Care Surface Hydrologist Name Role Phone Janice Fitzpartick Primary Care Provider [phone] Reason for Referral * Consultation (Routine) - Closed Specialty Diagnoses / Procedures Referred By Jaylin jimenez Referred To Contact Vascular Surgery Diagnoses Hepatic artery aneurysm Janice Fitzpatrick PA [address] [place] [address] Phone: tel: fax: Vascular Surgery [address] [place] [address] Phone: tel: Referral ID Status Reason Start Date Expiration Date V isits Requested Visits Authorized [id number] Closed Specialty Services Required 01/26/2022 07/28/2023 1 1 Encounter Details Date Type Department Care Team (Late st Contact Info) Description 01/26/2022 Community Orders Community Practice [address] [place] [address] Janice Fitzpatrick PA [address] [place] [address] Hepatic artery aneurysm (CMS/HCC) (Primary [...] documented as of this encounter Care Teams Surface Hydrologist Relationship Specialty Start Date End Date Janice Fitzpatrick PA [address] [place] [address] PCP - General 12/20/21 documented as of this encounter
--- OUTSIDE RECORDS SUMMARY | 2025-07-23 07:46 | XMS_ITS | Clinical Summary ---
Author Organization [facility] Address [address] [place] [address] Care Team Providers Care Rattan Worker Name Role Phone Janice Fitzpatrick Primary Care Provider [phone] Allergies Active Allergy Reactions Criticality Noted Date [...] 3 Active vitamin D (ERGOCALCIFEROL) 1.25 MG (53380 UT) capsule capsule 3 Active buprenorphine-na loxone [...] 04/2023 Potentially Unsafe Housing Conditions Not on alessnadra e 05/29/2023 Family and Community Support Answer [...] 12/02/2022 INFLUENZA VACCINE 03/21/2025 Insurance [facility] Care Teams Rattan Worker Relationship Specialty Start Date End Date Janice Fitzpatrick PA PCP - General Physician Medical Investigator 12/02/22
[2025-07-23] MEDS: GADOTERIDOL INJ 20ML SYRINGE 24 ML IV (08:53)
[2025-07-23] MEDS: SODIUM CHLORIDE 0.9% 10ML SYR (RAD ONLY) 10 ML IV (08:53)
== END 2025-07-23 23:59 | disposition home or self-care (01) ==
LOC: RAD 07:44
PROVIDERS: PCP Physician Assistant; Visit Provider Physician Assistant
DX: R90.82 White matter disease, unspecified (principal); R55 Syncope and collapse
CPT/HCPCS: 70553; A9576

== ENCOUNTER 2025-07-30 14:00 | Outpatient (RCR) | payer OTHER, SELFPAY | END 2025-07-30 23:59 | disposition home or self-care (01) | LOC: OT 14:00 | PROVIDERS: PCP Physician Assistant; Visit Provider Physician Assistant Surgical | DX: S52.509A Unspecified fracture of the lower end of unspecified radius, initial encounter for closed fracture (principal) | CPT/HCPCS: 97014; 97110; 97140; G0283 ==

== ENCOUNTER 2025-07-31 08:52 | Outpatient (CLI) | payer OTHER, SELFPAY ==
--- NOTE | 2025-07-31 08:57 | XR_ITS ---
FINAL REPORT CLINICAL HISTORY: SCREENING COMPARISON: None FINDINGS: Using L1-4, the bone mineral density of the spine is 1.143 g/cm2, corresponding to T-score of 0.9. Using the left hip, the bone mineral density of the femoral neck is 0.850 g/cm2, corresponding to a T-score of 0.0. Using the right forearm, the bone mineral density of the mid is 0.567 g/cm2, corresponding to a T-score of -0.7. NOTE: T-score: Standard deviation compared with peak bone mass of young adult mean. *Following the recommendations of the International Society of Bone densitometry, classification of hip BMD is based on the lower of two T-scores; total hip or femoral neck. IMPRESSION: Normal bone mineral density of the right forearm, left hip, and lumbar spine. Reviewed, Interpreted and Dictated by Eligio Underwood MD Transcribed by Nessa Verdugo Authenticated and [facility]
== END 2025-07-31 23:59 | disposition home or self-care (01) ==
LOC: RAD 08:52
PROVIDERS: PCP Physician Assistant; Visit Provider Physician Assistant
DX: Z13.820 Encounter for screening for osteoporosis (principal)
CPT/HCPCS: 77081